=== PATIENT | male | born 1940 | race Caucasian/White ===

== ENCOUNTER → 2017-07-10 | Outpatient (CLI) | payer MEDICARE, MEDICAID, SELFPAY | PROVIDERS: Visit Provider Internal Medicine | DX: I48.2 Chronic atrial fibrillation (principal); R73.01 Impaired fasting glucose; Z79.01 Long term (current) use of anticoagulants; Z51.81 Encounter for therapeutic drug level monitoring | CPT/HCPCS: 83036; 85610 ==

== ENCOUNTER → 2017-11-24 11:44 | Outpatient (CLI) | payer MEDICARE, MEDICAID, SELFPAY ==
--- NOTE | 2017-11-24 12:03 | XR_ITS ---
XR chest 2V HISTORY: ITS.REASON: AMIODARONE SURVEILLANCE ORDERING PHYSICIAN: LILLI Bermudez PATIENT AGE: 77 years COMPARISON: 05/05/2017 FINDINGS: Tripolar pacer is present as before. Normal heart size. 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 No fibrotic changes apparent that would indicate amiodarone toxicity. Mild degenerative change thoracic spine. IMPRESSION: No change tripolar pacer with COPD. No evidence of amiodarone lung toxicity.
[2017-11-24 14:09] LABS: Alanine Aminotransferase 46 U/L (12-78); Albumin Level 4.3 gm/dL (3.4-5.0); Albumin/Globulin Ratio 1.4 (1.1-1.8); Alkaline Phosphatase 94 U/L (46-116); Anion Gap 14.6 mEq/L (5-15); Aspartate Amino Transferase 43 U/L (15-37); Bilirubin,Total 0.8 mg/dL (0.2-1.0); Blood Urea Nitrogen 17 mg/dL (7-18); Calcium 9.6 mg/dL (8.5-10.1); Carbon Dioxide 27 mmol/L (21.0-32.0); Chloride 104 mmol/L (98-107); Creatinine,Serum 0.89 mg/dL (0.70-1.30); Estimated Glomerular Filt Rate 83 ml/min (>60); GFR (African American) 100 ML/MIN (>60); Globulin 3.1 gm/dl (1.3-3.2); Glucose 112 mg/dL (74-106); Potassium 4.6 mmoL/L (3.5-5.1); Sodium 141 mmol/L (136-145); Thyroid Stimulating Hormone 1.09 uIU/ml (0.358-3.740); Total Protein,Serum 7.4 gm/dL (6.4-8.2)
== END ==
PROVIDERS: Visit Provider Physician Assistant
DX: Z79.899 Other long term (current) drug therapy (principal); I42.8 Other cardiomyopathies
CPT/HCPCS: 36415; 71046; 80053; 84443

== ENCOUNTER → 2018-02-23 14:58 | Outpatient (REF) | payer MEDICARE, MEDICAID, SELFPAY ==
[2018-02-23 15:15] LABS: INR 2.89 (0.9-1.1); Prothrombin Time 28.9 seconds (9.4-11.8)
== END ==
LOC: LAB 14:58
PROVIDERS: Visit Provider Internal Medicine
DX: Z79.01 Long term (current) use of anticoagulants (principal); Z51.81 Encounter for therapeutic drug level monitoring; I48.2 Chronic atrial fibrillation
CPT/HCPCS: 85610

== ENCOUNTER → 2018-12-22 13:52 | Outpatient (CLI) | payer MEDICARE, MEDICAID, SELFPAY ==
--- NOTE | 2018-12-22 13:57 | XR_ITS ---
XR chest 2V HISTORY: Cardiac dysrhythmia ITS.REASON: inappropriate aicd shock ORDERING PHYSICIAN: Sharona Vasquez APRN PATIENT AGE: 78 years COMPARISON: 11/24/2017 FINDINGS: Unremarkable heart size. Biventricular pacemaker is present with the right atrial lead from left subclavian approach.. The lungs are clear without infiltrates, suspicious nodules, or pleural effusions. Scattered calcified granulomas are present. Degenerative change thoracic spine. IMPRESSION: No change with no acute finding. Biventricular pacemaker remains in place.
== END ==
PROVIDERS: PCP Internal Medicine; Visit Provider Urology
DX: E78.5 Hyperlipidemia, unspecified (principal); I10 Essential (primary) hypertension; I25.10 Atherosclerotic heart disease of native coronary artery without angina pectoris; R06.00 Dyspnea, unspecified; Z45.02 Encounter for adjustment and management of automatic implantable cardiac defibrillator; Z95.810 Presence of automatic (implantable) cardiac defibrillator
CPT/HCPCS: 71046

== ENCOUNTER → 2018-12-23 09:25 | Outpatient (CLI) | payer MEDICARE, MEDICAID, SELFPAY ==
--- NOTE | 2018-12-23 09:29 | CA_ITS ---
PROCEDURE: 2-D M-mode and color Doppler study INDICATIONS FOR THE TEST: Chest pain COPD+ Heart Murmur Tobacco Smoking Palpitations Fatigue+ Syncope Edema Hypertension+Diabetes Mellitus Rheumatic Fever SOB+TALLEY Obesity Hyperlipidemia+ Family History HD Additional History AICD,DEFIBRILLATOR DISCHARGE, AFIB, CVA PATIENT INFORMATION HEIGHT: 70 WEIGHT:191 GENDER: Male B/P:157/89 2-D/M-MODE INTERPRETATION: 2-D MEASUREMENTS OBSERVED VALUES IN CMS Right Ventricular Dimension (RVDd) 2.7 Interventricular Septum (Thickness)(IVsd) 1.4 Left Ventricular Internal Dimensions(LVIDd) 7.0 Left Ventricular Posterior Wall (Thickness)(LVPWd) 1.0 Aortic Root 3.8 Aortic Cusp Separation 2.0 Left Atrial Dimensions (LAD) 3.9 2D 1. Left atrium is mildly enlarged, left ventricle is mildly dilated, there is mild concentric left ventricular hypertrophy, visually estimated ejection fraction of 20-25%, left ventricle is globally hypokinetic, there is abnormal septal motion. 2. The right atrium and right ventricle are normal size and contractility. There is a catheter noted that ventricle which is likely a pacemaker on an AICD lead. 3. The aortic valve is minimally thickened and calcified, leaflet continue to display mobility. 4. The mitral and tricuspid valve leaflets are minimally thickened. 5. The pulmonic valve is poorly visualized. 6. No significant pericardial effusion noted. DOPPLER INTERROGATION: Doppler interrogation of the aortic, mitral and tricuspid valvular presence of mild mitral and mild aortic and tricuspid regurgitation, calculated right ventricular systolic pressure is 47 mmHg consistent with moderate pulmonary hypertension. Inferior vena cava is not well visualized. Diastolic parameters are inconclusive CONCLUSION: 1. Mildly enlarged left atrium, dilated left ventricle, severely reduced left ventricular systolic function, visually estimated ejection fraction 20-25%, left ventricle is globally hypokinetic, there is abnormal septal motion. Diastolic parameters are inconclusive. 2. Mild aortic, mild mitral and tricuspid regurgitation, calculated right ventricular systolic pressure is 47 mmHg consistent with moderate pulmonary hypertension. 3. No significant pericardial effusion noted.
== END ==
PROVIDERS: PCP Internal Medicine; Visit Provider Internal Medicine
DX: E78.5 Hyperlipidemia, unspecified (principal); I10 Essential (primary) hypertension; I25.10 Atherosclerotic heart disease of native coronary artery without angina pectoris; R06.00 Dyspnea, unspecified; Z45.02 Encounter for adjustment and management of automatic implantable cardiac defibrillator; Z95.810 Presence of automatic (implantable) cardiac defibrillator
CPT/HCPCS: 93306

== ENCOUNTER 2018-12-24 09:15 | Observation (INO) ==
--- NOTE | 2018-12-24 09:28 | Emergency Department Note ---
ED Disposition Clinical Impression: Rapid atrial fibrillation, AICD discharge Hypotension Qualifiers: Hypotension type: unspecified hypotension type Qualified Code(s): I95.9 - Hypotension, unspecified Disposition: Admitted As Inpatient Condition on Discharge: Serious Referrals: Provider,Referral, [Referring] - - Critical Care Critical Care Time: Yes Attestation: On 12/24/18, the high probability of a clinically significant, sudden or life threatening deterioration of the following system(s) required my full and direct attention, intervention and personal management. The time I documented below is in addition to time spent performing reported procedures but includes the following listed in this critical care notation. Total Critical Care Time: 30 Vital system(s) involved:: Circulatory Failure My critical care processes included: Assessment & monitoring of V/S, Initial and Re-exams, Data Review/Interpretation, Coordinating Care, Medication Orders and management, Documentation Medical Decision Making - Richar Inquiry Pt receiving controlled substance: No Vital Signs: 12/24/18 09:16 12/24/18 09:50 12/24/18 09:58 Temperature 97.8 F Temperature Source Temporal Artery Scan Pulse Rate [Right Brachial] 129 H 141 H 129 H Respiratory Rate 28 H 22 Blood Pressure [Right Arm] 94/69 L 114/58 L 109/60 L Blood Pressure Mean [Right Arm] 77 76 76 Blood Pressure Source [Right Arm] Automatic Cuff Automatic Cuff Blood Pressure Position [Right Arm] Sitting Supine 02 Sat by Pulse Oximetry 94 L 99 Oxygen Delivery Method Room Air Nasal Cannula Oxygen Flow Rate (LPM) 3 - Lab Data Lab Results 12/24/18 09:28: WBC 11.4 H, RBC 5.19, Hgb 16.2, Hct 48.7, MCV 93.9, MCH 31.1, MCHC 33.2, RDW 12.9, Plt Count 280, MPV 7.7, Neut % (Auto) 58.1, Lymph % (Auto) 34.3, [place] % (Auto) 6.1, Eos % (Auto) 0.9, Baso % (Auto) 0.7, Neut # (Auto) 6.6, Lymph # (Auto) 3.9, [place] # (Auto) 0.7, Eos # (Auto) 0.1, Baso # (Auto) 0.1 12/24/18 09:28: Sodium 135 L, Potassium 3.2 L, Chloride 96 L, Carbon Dioxide 26, Anion Gap 16.2 H, BUN 18, Creatinine 1.75 H, Estimated Creat Clear 42, Estimated GFR 38 L, Est GFR ( Amer) 46 L, Glucose 159 H, Calcium 9.5, Troponin I < 0.02 12/24/18 09:28: PT 19.1 H, INR 1.89 H Result diagrams: 12/24/18 09:28 12/24/18 09:28 Orders (Tests/Meds): ED MEDICATIONS Generic Name Dose Route Start Last Admin Trade Name Freq PRN Reason Stop Dose Admin Diphenhydramine HCl 50 mg 12/24/18 10:00 Benadryl 50mg/1ml Vial IV 12/24/18 10:01 ONCE ONE Fentanyl Citrate 50 mcg 12/24/18 10:00 Fentanyl 100mcg/2ml Vial IV 12/25/18 10:00 Q3MINP PRN Moderate to Severe Pain Fentanyl Citrate 25 mcg 12/24/18 10:00 Fentanyl 250mcg/5ml Vial IV 12/25/18 10:00 Q3MINP PRN Moderate to Severe Pain Fentanyl Citrate 50 mcg 12/24/18 10:00 Fentanyl 250mcg/5ml Vial IV 12/25/18 10:00 Q3MINP PRN Moderate to Severe Pain Fentanyl Citrate 25 mcg 12/24/18 10:00 Fentanyl 100mcg/2ml Vial IV 12/25/18 10:00 Q3MINP PRN Moderate to Severe Pain Flumazenil 0.2 mg 12/24/18 10:00 Romazicon 0.1mg/Ml 5ml Vial IV 12/24/18 23:00 NEEDED PRN Sedation Heparin Sodium (Porcine) 10,000 unit 12/24/18 10:00 Heparin 1,000 Units/Ml 10ml Vial (Tax Services Manager) IV 12/24/18 14:00 NEEDED PRN Emergency Box Thinner Sprayer Heparin Sodium/Sodium Chloride 3,000 unit 12/24/18 10:00 Heparin 1000 Units/500ml Ns (Tax Services Manager) IV 12/24/18 10:01 ONCE ONE Sodium Chloride 500 mls @ 999 mls/hr 12/24/18 09:45 12/24/18 09:40 Sod Chlor 0.9% 1000ml Bag IV 12/24/18 10:15 999 mls/hr .Q31M JED Administration Sodium Chloride 1,000 mls @ 25 mls/hr 12/24/18 10:00 Sod Chlor 0.9% 1000ml Bag IV 12/25/18 10:00 .Q25H JED Lidocaine HCl 20 ml 12/24/18 10:00 Lidocaine 1% 20ml Mdv IJ 12/24/18 10:01 ONCE ONE Midazolam HCl 1 mg 12/24/18 10:00 Midazolam 2mg/2ml Vial IV 12/25/18 10:00 Q3MINP PRN Sedation Midazolam HCl 1 mg 12/24/18 10:00 Midazolam 1mg/Ml 5ml Vial IV 12/25/18 10:00 Q3MINP PRN Sedation Naloxone HCl 0.4 mg 12/24/18 10:00 Narcan 0.4mg/Ml Vial IV 12/25/18 10:00 Q5MINP PRN Decreased Respirations Nitroglycerin 800 mcg 12/24/18 10:00 Nitroglycerin 800mcg/8ml Syr (Tax Services Manager) IV 12/25/18 10:00 NEEDED PRN Emergency Box Thinner Sprayer Verapamil HCl 2.5 mg 12/24/18 10:00 Verapamil 2.5mg/Ml 2ml Vial IV 12/24/18 10:01 ONCE ONE Discontinued Medications Generic Name Dose Route Start Last Admin Trade Name Freq PRN Reason Stop Dose Admin Metoprolol Tartrate 5 mg 12/24/18 09:43 12/24/18 09:55 Metoprolol Tartrate 5mg/5ml Vial IV 12/24/18 09:44 5 mg ONCE ONE Administration Metoprolol Tartrate 5 mg 12/24/18 09:47 12/24/18 09:55 Metoprolol Tartrate 5mg/5ml Vial IV 12/24/18 09:48 5 mg ONCE ONE Administration ORDERS Category Date Time Status B-Type Natriuretic Peptide Stat Lab 12/24/18 09:28 Received Basic Metabolic Panel Stat Lab 12/24/18 10:00 Ordered Complete Blood Count Auto Diff Stat Lab 12/24/18 10:00 Ordered Prothrombin Time INR Stat Lab 12/24/18 10:00 Ordered - Radiology Data #1 Image(s): Chest Image Reviewed: Yes I have reviewed radiologist's interpretation IMPRESSION: Overlying artifact with pacemaker present. No acute finding. Dictated By: Steven Mahajan MD Signed By: <Electronically signed by Steven Mahajan MD in OV> 12/24/18 0949 - Physician Consults Physician Consulted: Amy Time: 09:20 Reason -: Cardiology Eval/Care Comment/Response: saw patient in ED Additional Consult: José Miguel Time: 10:04 Reason -: Admission Comment/Response: Agrees to admit the patient to the hospital. We discussed the patient's clinical information, including history, exam, laboratory and radiology results and ED course. Per hospital procedure, I will write temporary bridge inpatient orders on the patient. Specific orders requested by the admitting physician: Per cardiology Medical Decision Narrative: Dr. Reyes called immediately after I saw the patient. He came to the emergency room and saw the patient. He requested metoprolol 5 mg IV. He plans on taking the patient to cardiac cath and also capping his defibrillator lead. States the patient has chronic atrial fibrillation, would not be able to be cardioverted out of atrial fibrillation General Adult HPI - General Chief complaint: Shortness of Breath/Dyspnea Stated complaint: short of air Time Seen by Provider: 12/24/18 09:28 - History of Present Illness HPI narrative: Patient complains of general weakness and shortness of breath. Says that his implanted defibrillator went off this morning at 6:33 AM. He took his blood pressure and initially it was normal but it has continued to drift down. He was scheduled to have AICD lead extraction done today as it has been discovered to be over sensing and inappropriately administering defibrillation shocks. Denies chest pain. Stopped Coumadin yesterday in preparation for the procedure. Patient had previously been seeing Dr. King and Patric Overton, but could no longer see them, so transferred his care to Dr. Reyes, he is a new patient of his as of the past couple of days. - Related Data Home Medications Medication Instructions Recorded Confirmed allopurinol 300 mg tablet 300 mg PO DAILY #90 tab 12/22/18 12/24/18 bisoprolol fumarate 10 mg tablet 10 mg PO DAILY #90 tab 12/22/18 12/24/18 levothyroxine 100 mcg tablet 100 mcg PO DAILY #90 tab 12/22/18 12/24/18 pravastatin 40 mg tablet 40 mg PO QHS #90 tab 12/22/18 12/24/18 vitamins A,C,C-lvzi-rrvlgv 14,320 1 cap PO BID 12/22/18 12/24/18 unit-226 mg-200 unit capsule warfarin 5 mg tablet 2.5 mg PO DAILY #30 tab 12/22/18 12/24/18 Furosemide [Furosemide 40MG tAB] 40 mg PO BID 12/24/18 12/24/18 Sacubitril/Valsartan [Entresto] 1 tab PO BID 12/24/18 12/24/18 Allergies Allergy/AdvReac Type Severity Reaction Status Date / Time No Known Allergies Allergy Verified 12/23/18 10:44 [facility] History - Hepatitis A Screen Attestation statement:: This patient has been screened for Hepatitis A risk factors. I have reviewed the patient's past medical history: Yes Medical History: Reports:: Atrial Fibrillation, Chronic Obstructive Pulmonary Disease (COPD), Cerebrovascular Accident, Hyperlipidemia, Hypertension Other Medical History: Reports: Hypothyroidism, Thyroid Disease Other Surgeries: Yes: No Previous Surgery - Social History Smoking Status: Former smoker #Yrs smoked (if former smoker): 45 Alcohol Intake: current Alcohol Intake Frequency:: holidays/special occasions only Substance Use Type: denies use Occupational Status: retired Family Hx:: Stroke Comment: Mother-CVA ROS Obtained: Yes All systems reviewed & no additional complaints - Constitutional Constitutional: Denies fever(s) - Cardiovascular Cardiovascular: Denies chest pain - Respiratory Respiratory: Yes dyspnea - Gastrointestinal Gastrointestingal: Denies: abdominal pain Physical Exam - General General appearance: alert - Head Head exam: atraumatic, normocephalic - Eye Eye exam: Present: normal appearance, PERRL, EOMI - ENT ENT exam: Present: mucous membranes moist - Neck Neck exam: Present: normal inspection, trachea midline - Chest Chest inspection: Present: normal inspection, symmetric chest wall rise - Respiratory Respiratory exam: Present: normal lung sounds bilaterally. Absent: respiratory distress - Cardiovascular Cardiovascular exam: Present: tachycardia, irregular rhythm - Abdominal Exam Abdominal exam: Present: soft. Absent: distention, tenderness - Neurological Exam Neurological exam: Present: alert, oriented X3 - Psychiatric Psychiatric exam: Present: normal affect, normal mood - Skin Skin exam: Present: pallor
[2018-12-24 09:44] LABS: Basophils # 0.1 K/mm3 (0-0.2); Basophils % 0.7 % (0.1-2.0); Eosinophils # 0.1 K/mm3 (0.0-0.4); Eosinophils % 0.9 % (0.1-12.0); Hematocrit 48.7 % (42.0-52.0); Hemoglobin 16.2 g/dL (14.1-18.0); Lymphocytes # 3.9 K/mm3 (0.7-4.5); Lymphocytes % 34.3 % (10-50); Mean Corpuscular HGB Conc 33.2 g/dL (31.8-35.4); Mean Corpuscular Volume 93.9 fl (80-94); Mean Platelet Volume 7.7 fl (7.4-10.4); Monocytes # 0.7 K/mm3 (0.1-1.0); Monocytes % 6.1 % (1.7-9.3); Neutrophils # 6.6 K/mm3 (1.8-7.8); Neutrophils % 58.1 % (37.0-80.0); Platelet Count 280 K/mm3 (142-424); Red Blood Count 5.19 M/mm3 (4.60-6.20); Red Cell Distribution Width 12.9 % (11.5-17.5); White Blood Count 11.4 K/mm3 (4.8-10.8)
[2018-12-24 09:49] LABS: INR 1.89 (0.9-1.1); Prothrombin Time 19.1 seconds (9.4-11.8)
[2018-12-24 09:56] LABS: Anion Gap 16.2 mEq/L (5-15); Blood Urea Nitrogen 18 mg/dL (7-18); Calcium 9.5 mg/dL (8.5-10.1); Carbon Dioxide 26 mmol/L (21.0-32.0); Chloride 96 mmol/L (98-107); Glucose 159 mg/dL (74-106); Sodium 135 mmol/L (136-145)
--- NOTE | 2018-12-24 10:07 | Consult Report ---
History of Present Illness Consult date: 12/24/18 Consult reason: shortness of breath Chief complaint: AICD firing, SOA Additional Medical History:: 1. CAD A. Non-ischemic cardiomyopathy ([facility], 2008) with EF of 20-30% in past by echo and YVONNE (10/2016) B. BiV ICD, 10/2016, [employer] model # G148, serial # [id number] 2. PAF with RVR despite amiodarone therapy with recent increase in tachy events for which patient has been shocked due to oversensing of RV lead A. Anticoagulation with Coumadin therapy B. History of CVA 2008 3. Hypertension A. Echo, 12/23/2018, 1. Left atrium is mildly enlarged, left ventricle is mildly dilated, there is mild concentric left ventricular hypertrophy, visually estimated ejection fraction of 20-25%, left ventricle is globally hypokinetic, there is abnormal septal motion. 2. The right atrium and right ventricle are normal size and contractility. There is a catheter noted that ventricle which is likely a pacemaker on an AICD lead. 3. The aortic valve is minimally thickened and calcified, leaflet continue to display mobility. 4. The mitral and tricuspid valve leaflets are minimally thickened. 5. The pulmonic valve is poorly visualized. 6. No significant pericardial effusion noted. DOPPLER INTERROGATION: Doppler interrogation of the aortic, mitral and tricuspid valvular presence of mild mitral and mild aortic and tricuspid regurgitation, calculated right ventricular systolic pressure is 47 mmHg consistent with moderate pulmonary hypertension. Inferior vena cava is not well visualized. Diastolic parameters are inconclusive CONCLUSION: 1. Mildly enlarged left atrium, dilated left ventricle, severely reduced left ventricular systolic function, visually estimated ejection fraction 20-25%, left ventricle is globally hypokinetic, there is abnormal septal motion. Diastolic parameters are inconclusive. 2. Mild aortic, mild mitral and tricuspid regurgitation, calculated right ventricular systolic pressure is 47 mmHg consistent with moderate pulmonary hypertension. 3. No significant pericardial effusion noted 4. COPD 5. Hyperlipidemia 6. 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 Says that his implanted defibrillator went off this morning at 6:33 AM. He took his blood pressure and initially it was normal but it has continued to drift down. He was scheduled to have AICD lead extraction done today as it has been discovered to be over sensing and inappropriately administering defibrillation shocks. Denies chest pain. Stopped Coumadin yesterday in preparation for the procedure. Patient had previously been seeing Dr. King and Patric Overton, but could no longer see them, so transferred his care to Dr. Reyes, he is a new patient of his as of the past couple of days. The above per Dr. Fuentes Pt was seen yesterday with medication changes including stopping entresto and starting lasix for CHF secondary to cardiomyopathy. Plans to undergo RV lead extraction/replacement noted for today. Pt with history of moderate CAD in the past. With recent recurrent AICD firing and known CAD and now A. fib with RVR, pt should undergo LHC as well. [facility] History Medical History: Reports:: Atrial Fibrillation, Chronic Obstructive Pulmonary Disease (COPD), Cerebrovascular Accident, Hyperlipidemia, Hypertension *Have you ever received a pneumonia vaccine?: No *Have you received a flu vaccine this season?: No Other Medical History: Reports: Hypothyroidism, Thyroid Disease Other Surgeries: Yes: No Previous Surgery - *Social History Smoking Status: Former smoker #Yrs smoked (if former smoker): 45 Alcohol Intake: current Alcohol Intake Frequency:: holidays/special occasions only Substance Use Type: denies use *Occupational Status:: retired *Travel in the last 8 weeks: Inside the [place] Family Hx:: Stroke Meds Home Medications Medication Instructions Recorded Confirmed Type allopurinol 300 mg tablet 300 mg PO DAILY #90 tab 12/22/18 12/24/18 History bisoprolol fumarate 10 mg tablet 10 mg PO DAILY #90 tab 12/22/18 12/24/18 History levothyroxine 100 mcg tablet 100 mcg PO DAILY #90 tab 12/22/18 12/24/18 History pravastatin 40 mg tablet 40 mg PO QHS #90 tab 12/22/18 12/24/18 History vitamins A,C,H-ktnu-wvngyp 14,320 1 cap PO BID 12/22/18 12/24/18 History unit-226 mg-200 unit capsule warfarin 5 mg tablet 2.5 mg PO DAILY #30 tab 12/22/18 12/24/18 History Furosemide [Furosemide 40MG tAB] 40 mg PO BID 12/24/18 12/24/18 History Sacubitril/Valsartan [Entresto] 1 tab PO BID 12/24/18 12/24/18 History Allergies Allergy/AdvReac Type Severity Reaction Status Date / Time No Known Allergies Allergy Verified 12/23/18 10:44 Review of Systems - *Cardiovascular Reports chest pain, Reports shortness of breath - *Respiratory Reports shortness of breath - *Gastrointestinal Denies abdominal pain, Denies nausea, Denies vomiting - *Genitourinary Denies blood in urine - *Musculoskeletal Denies joint pain, Denies back pain - *Neurologic Reports weakness Exam Vital signs and Labs for Last 24 Hours: Temp Pulse Resp BP Pulse Ox 97.8 F 129 H 22 109/60 L 99 12/24/18 09:16 12/24/18 09:58 12/24/18 09:58 12/24/18 09:58 12/24/18 09:50 Laboratory Results - last 24 hr 12/24/18 09:28: WBC 11.4 H, RBC 5.19, Hgb 16.2, Hct 48.7, MCV 93.9, MCH 31.1, MCHC 33.2, RDW 12.9, Plt Count 280, MPV 7.7, Neut % (Auto) 58.1, Lymph % (Auto) 34.3, [place] % (Auto) 6.1, Eos % (Auto) 0.9, Baso % (Auto) 0.7, Neut # (Auto) 6.6, Lymph # (Auto) 3.9, [place] # (Auto) 0.7, Eos # (Auto) 0.1, Baso # (Auto) 0.1 12/24/18 09:28: Sodium 135 L, Potassium 3.2 L, Chloride 96 L, Carbon Dioxide 26, Anion Gap 16.2 H, BUN 18, Creatinine 1.75 H, Estimated Creat Clear 42, Estimated GFR 38 L, Est GFR ( Amer) 46 L, Glucose 159 H, Calcium 9.5, Troponin I < 0.02 12/24/18 09:28: PT 19.1 H, INR 1.89 H I & O for Last 24 hours: Intake & Output 12/21/18 12/22/18 12/23/18 12/24/18 11:59 11:59 11:59 11:59 Weight 191 lb - *Routine HEENT Exam Head: Present: normocephalic Eye: Present: EOMI, PERRL ENT: Present: mucous membranes moist - *Routine Neck Exam Present: supple. Absent: JVD, carotid bruit - *Routine Respiratory Exam Present: CTA bilaterally. Absent: accessory muscle use, rales, rhonchi, wheezes - *Routine Cardiovascular Exam Present: RRR. Absent: murmur, gallop, rubs - *Routine Extremities Exam Absent: edema, calf tenderness Assessment and Plan (1) Defibrillator discharge Current visit: Yes Status: Acute Category: Medical Code(s): Z45.02 - Encounter for adjustment and management of automatic implantable cardiac defibrillator (2) Hypotension Current visit: Yes Status: Acute Qualifiers: Qualified Code(s): I95.9 - Hypotension, unspecified Category: Medical Code(s): I95.9 - Hypotension, unspecified (3) Rapid atrial fibrillation Current visit: Yes Status: Acute Category: Medical Code(s): I48.91 - Unspecified atrial fibrillation (4) Automatic implantable cardioverter-defibrillator in situ Current visit: No Status: Chronic Category: Medical Code(s): Z95.810 - Presence of automatic (implantable) cardiac defibrillator (5) Chronic systolic heart failure Current visit: No Status: Chronic Category: Medical Code(s): I50.22 - Chronic systolic (congestive) heart failure (6) HLD (hyperlipidemia) Current visit: No Status: Chronic Qualifiers: Qualified Code(s): E78.49 - Other hyperlipidemia; E78.4 - Other hyperlipidemia Category: Medical Code(s): E78.5 - Hyperlipidemia, unspecified (7) HTN (hypertension) Current visit: No Status: Chronic Qualifiers: Qualified Code(s): I10 - Essential (primary) hypertension Category: Medical Code(s): I10 - Essential (primary) hypertension - Assessment and plan all Dx Assessment and Plan for all problems:: 1. C this AM 2. RV lead extraction and replacement due to RV oversensing and ICD firings. 3. Further recommendations to follow.
[2018-12-24 12:38] LABS: Free T4 (Free Thyroxine) 1.23 ng/dl (0.76-1.46); Thyroid Stimulating Hormone 2.35 uIU/ml (0.358-3.740)
--- NOTE | 2018-12-25 06:48 | H&P/Discharge Summary ---
General - General Admission date:: 12/24/18 Discharge date: 12/25/18 *Admission Date: 12/24/18 *Chief complaint: Fatigue/malaise/chest pain *History of present illness: 1. CAD A. Non-ischemic cardiomyopathy ([facility], 2008) with EF of 20-30% in past by echo and YVONNE (10/2016) B. BiV ICD, 10/2016, [employer] model # G148, serial # [id number] 2. PAF with RVR despite amiodarone therapy with recent increase in tachy events for which patient has been shocked due to oversensing of RV lead A. Anticoagulation with Coumadin therapy B. History of CVA 2008 3. Hypertension A. Echo, 12/23/2018, 1. Left atrium is mildly enlarged, left ventricle is mildly dilated, there is mild concentric left ventricular hypertrophy, visually estimated ejection fraction of 20-25%, left ventricle is globally hypokinetic, there is abnormal septal motion. 2. The right atrium and right ventricle are normal size and contractility. There is a catheter noted that ventricle which is likely a pacemaker on an AICD lead. 3. The aortic valve is minimally thickened and calcified, leaflet continue to display mobility. 4. The mitral and tricuspid valve leaflets are minimally thickened. 5. The pulmonic valve is poorly visualized. 6. No significant pericardial effusion noted. DOPPLER INTERROGATION: Doppler interrogation of the aortic, mitral and tricuspid valvular presence of mild mitral and mild aortic and tricuspid regurgitation, calculated right ventricular systolic pressure is 47 mmHg consistent with moderate pulmonary hypertension. Inferior vena cava is not well visualized. Diastolic parameters are inconclusive CONCLUSION: 1. Mildly enlarged left atrium, dilated left ventricle, severely reduced left ventricular systolic function, visually estimated ejection fraction 20-25%, left ventricle is globally hypokinetic, there is abnormal septal motion. Diastolic parameters are inconclusive. 2. Mild aortic, mild mitral and tricuspid regurgitation, calculated right ventricular systolic pressure is 47 mmHg consistent with moderate pulmonary hypertension. 3. No significant pericardial effusion noted 4. COPD 5. Hyperlipidemia 6. 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 Says that his implanted defibrillator went off this morning at 6:33 AM. He took his blood pressure and initially it was normal but it has continued to drift down. He was scheduled to have AICD lead extraction done today as it has been discovered to be over sensing and inappropriately administering defibrillation shocks. Denies chest pain. Stopped Coumadin yesterday in preparation for the procedure. Patient had previously been seeing Dr. King and Patric Overton, but could no longer see them, so transferred his care to Dr. Reyes, he is a new patient of his as of the past couple of days. The above per Dr. Fuentes Pt was seen yesterday with medication changes including stopping entresto and starting lasix for CHF secondary to cardiomyopathy. Plans to undergo RV lead extraction/replacement noted for today. Pt with history of moderate CAD in the past. With recent recurrent AICD firing and known CAD and now A. fib with RVR, pt should undergo LHC as well. [facility] History I have reviewed the patient's past medical history: Yes Medical History: Reports:: Atrial Fibrillation, Chronic Obstructive Pulmonary Disease (COPD), Cerebrovascular Accident, Hyperlipidemia, Hypertension, Internal Pacemaker Denies:: Diabetes Mellitus Type 1, Diabetes Mellitus Type 2, MRSA *Have you ever received a pneumonia vaccine?: Yes *Have you received a flu vaccine this season?: Yes Other Medical History: Reports: Hypothyroidism, Thyroid Disease Other Surgeries: Yes: No Previous Surgery, Cardiac Catheterization, Pacemaker - *Social History Educational Level: Completed High School Smoking Status: Former smoker Tobacco Type: cigarettes # Packs/Day (cigarettes): 1 #Yrs smoked (if former smoker): 40 Alcohol Intake: former Alcohol Intake Frequency:: holidays/special occasions only Substance Use Type: denies use *Occupational Status:: retired Housing: house Household Members: none *Travel in the last 8 weeks: None - Psychiatric History Expresses thoughts of harming self/others: None Suicide Plan Description: No Plan Family Hx:: Stroke Review of Systems - Review of Systems Review of systems:: pertinent systems reviewed and negative unless documented below - *Neurologic Reports weakness Exam Vital signs and Labs for Last 24 Hours: Temp Pulse Resp BP Pulse Ox 98.2 F 80 19 134/71 97 12/25/18 03:33 12/25/18 04:00 12/25/18 03:33 12/25/18 03:33 12/25/18 03:33 Laboratory Results - last 24 hr 12/24/18 09:00: TSH 2.35 D, Free T4 1.23 12/24/18 09:28: WBC 11.4 H, RBC 5.19, Hgb 16.2, Hct 48.7, MCV 93.9, MCH 31.1, MCHC 33.2, RDW 12.9, Plt Count 280, MPV 7.7, Neut % (Auto) 58.1, Lymph % (Auto) 34.3, Kingfisher % (Auto) 6.1, Eos % (Auto) 0.9, Baso % (Auto) 0.7, Neut # (Auto) 6.6, Lymph # (Auto) 3.9, Kingfisher # (Auto) 0.7, Eos # (Auto) 0.1, Baso # (Auto) 0.1 12/24/18 09:28: Sodium 135 L, Potassium 3.2 L, Chloride 96 L, Carbon Dioxide 26, Anion Gap 16.2 H, BUN 18, Creatinine 1.75 H, Estimated Creat Clear 42, Estimated GFR 38 L, Est GFR ( Amer) 46 L, Glucose 159 H, Calcium 9.5, Troponin I < 0.02 12/24/18 09:28: PT 19.1 H, INR 1.89 H 12/24/18 09:28: B-Natriuretic Peptide 327 H I & O for Last 24 hours: Intake & Output 12/22/18 12/23/18 12/24/18 12/25/18 11:59 11:59 11:59 11:59 Intake Total 1000 / 1000 240 / 240 Balance 1000 / 1000 240 / 240 Weight 191 lb 191 lb 7 oz Narrative: This morning patient awake, alert, heart rate regular, no complaints. No edema, Abdomen soft and nontender. Lungs clear. Neurologic exam intact. No rash noted. Catheterization sites look good with good perfusion Hospital Course Hospital Course: Patient was admitted, underwent cardiac cath: Results noted below. ANGIOGRAPHIC RESULTS: 1. The left main artery normal 2. The left anterior descending artery has normal 3. The circumflex artery is non dominant and has normal 4. The right coronary artery normal 5. The SMITH ventriculogram reveals left ventricular dilatation ejection fraction 20% 6. The left ventricular end-diastolic pressure less than 5 mmHg HEMODYNAMICS: Pulmonary artery occlusion pressure is 3 mmHg mm Hg. Pulmonary arterial pressure is 15/5 mm Hg. Right atrial pressure is 2 mm Hg. SATURATIONS: PA is 73 %. RA is 73 %. IMPRESSION: 1. Normal coronary arteries 2. Left ventricular dysfunction 3. Low intracardio-pulmonary filling pressures PLAN: 1. Patient needs IV fluids because of the low intravascular fluid status 2. Rate control with beta blockers and digoxin 3. Proceed with pacemaker/defibrillator modification later this afternoon 4. Continue with anticoagulation for chronic atrial fibrillation Patient did well post cath. Continued on current medications. Defibrillator modification was undertaken without problems. Patient will be discharged home on regular medications. Follow-up with cardiology. Results Labs on day of discharge: Labs from last 24 hours 12/24/18 12/24/18 12/24/18 09:28 09:28 09:28 WBC RBC Hgb Hct MCV MCH MCHC RDW Plt Count MPV Neut % (Auto) Lymph % (Auto) Kingfisher % (Auto) Eos % (Auto) Baso % (Auto) Neut # (Auto) Lymph # (Auto) Kingfisher # (Auto) Eos # (Auto) Baso # (Auto) PT 19.1 H INR 1.89 H Sodium 135 L Potassium 3.2 L Chloride 96 L Carbon Dioxide 26 Anion Gap 16.2 H BUN 18 Creatinine 1.75 H Estimated Creat Clear 42 Estimated GFR 38 L Est GFR ( Amer) 46 L Glucose 159 H Calcium 9.5 Troponin I < 0.02 B-Natriuretic Peptide 327 H TSH Free T4 12/24/18 12/24/18 09:28 09:00 WBC 11.4 H RBC 5.19 Hgb 16.2 Hct 48.7 MCV 93.9 MCH 31.1 MCHC 33.2 RDW 12.9 Plt Count 280 MPV 7.7 Neut % (Auto) 58.1 Lymph % (Auto) 34.3 Kingfisher % (Auto) 6.1 Eos % (Auto) 0.9 Baso % (Auto) 0.7 Neut # (Auto) 6.6 Lymph # (Auto) 3.9 Kingfisher # (Auto) 0.7 Eos # (Auto) 0.1 Baso # (Auto) 0.1 PT INR Sodium Potassium Chloride Carbon Dioxide Anion Gap BUN Creatinine Estimated Creat Clear Estimated GFR Est GFR ( Amer) Glucose Calcium Troponin I B-Natriuretic Peptide TSH 2.35 D Free T4 1.23 DS: Diagnosis - Discharge Diagnosis (1) Defibrillator discharge Status: Resolved (2) Hypotension Status: Resolved (3) Rapid atrial fibrillation Status: Resolved (4) Automatic implantable cardioverter-defibrillator in situ Status: Chronic (5) Chronic systolic heart failure Status: Chronic (6) HLD (hyperlipidemia) Status: Chronic (7) HTN (hypertension) Status: Chronic Discharge Plan - Patient Discharge Instructions ACTIVITY: Continue current activity DIET: continue same diet Patient Instructions: Cardiac Catheterization, DI for Cardiac Catheterization, DI for Surgical Site Infection, Surgical Site Infection - Follow up Plan Follow up with: Provider,MD Leonid [Referring] - Dany Reyes MD [Staff Physician] - 12/28/18 Disposition: Home, Self-[facility] Medications: Home Medications Medication Instructions Recorded Confirmed Type allopurinol 300 mg tablet 300 mg PO DAILY #90 tab 12/22/18 12/24/18 History bisoprolol fumarate 10 mg tablet 10 mg PO DAILY #90 tab 12/22/18 12/24/18 History levothyroxine 100 mcg tablet 100 mcg PO DAILY #90 tab 12/22/18 12/24/18 History pravastatin 40 mg tablet 40 mg PO QHS #90 tab 12/22/18 12/24/18 History vitamins A,C,N-quaz-ibjsux 14,320 1 cap PO BID 12/22/18 12/24/18 History unit-226 mg-200 unit capsule warfarin 5 mg tablet 2.5 mg PO DAILY #30 tab 12/22/18 12/24/18 History Furosemide [Furosemide 40MG tAB] 40 mg PO BID 12/24/18 12/24/18 History Sacubitril/Valsartan [Entresto] 1 tab PO BID 12/24/18 12/24/18 History Digoxin [Digoxin 0.125mg Tablet] 125 mcg PO DAILY #30 tab 12/25/18 Rx Prescriptions/Medication Reconciliation: New Digoxin [Digoxin 0.125mg Tablet] 125 mcg PO DAILY #30 tab Continued allopurinol 300 mg tablet 300 mg PO DAILY #90 tab warfarin 5 mg tablet 2.5 mg PO DAILY #30 tab levothyroxine 100 mcg tablet 100 mcg PO DAILY #90 tab bisoprolol fumarate 10 mg tablet 10 mg PO DAILY #90 tab pravastatin 40 mg tablet 40 mg PO QHS #90 tab vitamins A,C,Q-epyi-izjbpf 14,320 unit-226 mg-200 unit capsule 1 cap PO BID Sacubitril/Valsartan [Entresto] 1 tab PO BID Furosemide [Furosemide 40MG tAB] 40 mg PO BID
--- NOTE | 2019-01-27 11:02 | Procedure Note ---
Pocket Revision Date:: 12/24/18 Procedures:: 1. Revision of existing pocket for generator 2. Capped Chronic Rright Ventricular Lead 3. Placement of a New Ventricular sensing, pacing and shocking coil in the right ventricular apex. Indications:: Over Sensing and Inappropriately administration Defibrillation Shock Informed consent:: Obtained prior to procedure. Complications:: None EBL:: Less than 10 ml. Technique:: 1% Lidocaine with epinephrine used to anesthetize the left anterior aspect of the chest.Scalpel was used to make the initial cutaneous incision and then used to dissect down to the pacemaker generator. The generator was removed from the existing pocket. Digital manipulation was required along with intermittent usage of scalpel in order to revise the pocket. The pacemaker leads were removed from the old generator and then placed and secured into the new pacemaker generator. Antibiotics were used to flush the pocket and the pacemaker was secured using 3-0 silk into the newly revised pocket. Monocryl was used to close the subcutaneous tissue and then layne were placed on the cutaneous area in order to approximate the incision. The area was sterilely prepped and antibiotics were applied. Patient was transferred to the postop holding area in stable condition Impression:: 1. Successful revision of existing pocket for generator 2. Successful capping of the Chronic Rright Ventricular Lead 3. Successful placement of a New Ventricular sensing, pacing and shocking coil in the right ventricular apex. Plan:: 1.Post-op wound care.
== END 2018-12-25 08:54 | disposition home or self-care (01) ==
LOC: ER 09:15 → CATHLAB 10:04 → 2ND 10:04 → CATHLAB 10:15
PROVIDERS: ADMIT Internal Medicine Adolescent Medicine; ATTEND Internal Medicine Adolescent Medicine
DX: T82.190A Other mechanical complication of cardiac electrode, initial encounter; J44.9 Chronic obstructive pulmonary disease, unspecified; I95.9 Hypotension, unspecified; E03.9 Hypothyroidism, unspecified; I50.22 Chronic systolic (congestive) heart failure; I11.0 Hypertensive heart disease with heart failure; Z87.891 Personal history of nicotine dependence; I50.84 End stage heart failure; I48.91 Unspecified atrial fibrillation; J45.990 Exercise induced bronchospasm; Z45.02 Encounter for adjustment and management of automatic implantable cardiac defibrillator; Z95.810 Presence of automatic (implantable) cardiac defibrillator; I25.10 Atherosclerotic heart disease of native coronary artery without angina pectoris; E78.5 Hyperlipidemia, unspecified; Z79.899 Other long term (current) drug therapy; Z79.01 Long term (current) use of anticoagulants
CPT/HCPCS: 33224; 33244; 71010; 71045; 80048; 82810; 83880; 84439; 84443; 84484; 85025; 85610; 96365; 96375; 99152; 99283; C1725; C1769; C1894; C1895; G0378; J1644; Q9967

== ENCOUNTER → 2019-07-08 14:26 | Outpatient (CLI) | payer MEDICARE, MEDICAID, SELFPAY ==
[2019-07-08 14:51] LABS: INR 2.85 (0.9-1.1); Prothrombin Time 28.2 seconds (9.4-11.8)
== END ==
PROVIDERS: Visit Provider Internal Medicine
DX: Z51.81 Encounter for therapeutic drug level monitoring (principal); Z79.01 Long term (current) use of anticoagulants; I48.20 Chronic atrial fibrillation, unspecified
CPT/HCPCS: 36415; 85610

== ENCOUNTER → 2019-08-12 16:10 | Outpatient (CLI) | payer MEDICARE, MEDICAID, SELFPAY ==
[2019-08-12 16:23] LABS: INR 2.87 (0.9-1.1); Prothrombin Time 28.4 seconds (9.4-11.8)
== END ==
PROVIDERS: Visit Provider Internal Medicine
DX: Z51.81 Encounter for therapeutic drug level monitoring (principal); Z79.01 Long term (current) use of anticoagulants; I48.91 Unspecified atrial fibrillation
CPT/HCPCS: 85610

== ENCOUNTER → 2019-12-26 10:34 | Outpatient (CLI) | payer MEDICARE, MEDICAID, SELFPAY | PROVIDERS: PCP Internal Medicine; Visit Provider Urology | DX: I48.91 Unspecified atrial fibrillation; I50.22 Chronic systolic (congestive) heart failure; E78.5 Hyperlipidemia, unspecified; Z95.810 Presence of automatic (implantable) cardiac defibrillator | CPT/HCPCS: 93306 ==

== ENCOUNTER → 2020-09-05 12:25 | Outpatient (CLI) | payer MEDICARE, MEDICAID, SELFPAY ==
[2020-09-05 12:52] LABS: Chloride 103 mmol/L (98-107); Sodium 139 mmol/L (136-145)
[2020-09-05 12:53] LABS: Potassium 4.8 mmoL/L (3.5-5.1)
[2020-09-05 12:56] LABS: Anion Gap 9.8 mEq/L (5-15); Blood Urea Nitrogen 20 mg/dl (9-20); Calcium 10.1 mg/dl (8.4-10.2); Carbon Dioxide 31 mmol/L (22.0-30.0); Estimated Glomerular Filt Rate 72 ml/min (>60); GFR (African American) 87 ML/MIN (>60); Glucose 119 mg/dl (74-100)
[2020-09-05 14:08] LABS: Prothrombin Time 26.9 seconds (9.4-11.8)
[2020-09-05 14:09] LABS: INR 2.65 (0.9-1.1)
== END ==
PROVIDERS: PCP Internal Medicine; Visit Provider Nurse Practitioner Family
DX: I50.22 Chronic systolic (congestive) heart failure; Z51.81 Encounter for therapeutic drug level monitoring; Z79.01 Long term (current) use of anticoagulants; I11.0 Hypertensive heart disease with heart failure
CPT/HCPCS: 36415; 80048; 85610

== ENCOUNTER → 2020-12-12 16:29 | Outpatient (CLI) | payer MEDICARE, MEDICAID, SELFPAY ==
[2020-12-12 20:46] LABS: INR 3.34 (0.9-1.1)
== END ==
PROVIDERS: Visit Provider Internal Medicine
DX: Z51.81 Encounter for therapeutic drug level monitoring (principal); Z79.01 Long term (current) use of anticoagulants; I48.91 Unspecified atrial fibrillation
CPT/HCPCS: 85610

== ENCOUNTER → 2020-12-28 14:45 | Outpatient (CLI) | payer MEDICARE, MEDICAID, SELFPAY ==
[2020-12-28 14:58] LABS: Prothrombin Time 23.3 seconds (10.1-12.5)
[2020-12-28 14:59] LABS: INR 2.09 (0.9-1.1)
== END ==
PROVIDERS: Visit Provider Internal Medicine
DX: R00.0 Tachycardia, unspecified (principal)
CPT/HCPCS: 85610

== ENCOUNTER 2020-12-28 15:01 | Inpatient (IN) | payer MEDICARE, MEDICAID, SELFPAY ==
[2020-12-28] VITALS (16 sets, daily range): BP systolic 74–116; BP diastolic 53–85; PULSE 60–162; RESP 16–28; TEMP 36.3–36.9; O2SAT 95–100; BMI 27.2; BMI 27.1
--- NOTE | 2020-12-28 14:55 | ECG_ITS ---
APPROVED REPORT Exam: Resting ECG HR:153 bpm ECG Measurements Heart Rate 153 AXES QRSd 152 QRS -76 QT 372 T 115 QTc 593 Conclusion Wide QRS tachycardia with frequent premature ventricular complexes and fusion complexes Left axis deviation Left bundle branch block Abnormal ECG Electronically signed by : Eamon Valdez, 12/29/2020 07:15:20
--- NOTE | 2020-12-28 15:18 | PC.NURSE ---
JOCELYNE DONIS speaking with Amy.
--- NOTE | 2020-12-28 15:21 | XR_ITS ---
PROCEDURE: XR CHEST PORTABLE CLINICAL HISTORY: tachy COMPARISON: CR CXR1 CHEST-PORTABLE from 10/13/2016 CR CXR CHEST(2 VIEWS-NOT PORTABLE) from 05/05/2017 CR CXR2V XR chest 2V from 11/24/2017 FINDINGS: Heart size is normal. There is mild bibasilar scar versus atelectasis. No definite focal infiltrate. No pleural effusion or pneumothorax. Stable left-sided AICD/pacemaker noted. No acute bony abnormality. IMPRESSION: Mild bibasilar scar versus atelectasis. No focal infiltrate or overt failure. Dictated by: José Miguel Escamilla MD 12/28/2020 15:43 José Miguel Escamilla MD in [place] 12/28/2020 15:43
[2020-12-28 15:31] LABS: Basophils # 0.1 K/mm3 (0-0.2); Basophils % 0.7 % (0.1-2.0); Eosinophils # 0.2 K/mm3 (0.0-0.4); Hematocrit 49.2 % (42.0-52.0); Hemoglobin 16.9 g/dL (14.1-18.0); Lymphocytes # 2.8 K/mm3 (0.7-4.5); Mean Corpuscular HGB Conc 34.4 g/dL (31.8-35.4); Mean Platelet Volume 8.5 fl (7.4-10.4); Monocytes # 0.6 K/mm3 (0.1-1.0); Monocytes % 5.8 % (1.7-9.3); Neutrophils # 5.8 K/mm3 (1.8-7.8); Neutrophils % 61.6 % (37.0-80.0); Platelet Count 215 K/mm3 (142-424); Red Blood Count 4.97 M/mm3 (4.60-6.20); Red Cell Distribution Width 13.1 % (11.5-17.5); White Blood Count 9.5 K/mm3 (4.8-10.8)
[2020-12-28 15:45] LABS: Magnesium 1.6 mg/dl (1.6-2.3); Phosphorous 2.7 mg/dl (2.5-4.5)
--- NOTE | 2020-12-28 15:45 | HMH.EDGENADL ---
ED Disposition Clinical Impression: Wide-complex tachycardia Hypotension Qualifiers: Hypotension type: unspecified hypotension type Qualified Code(s): I95.9 - Hypotension, unspecified Disposition: Admitted As Inpatient Condition on Discharge: Serious - Critical Care Critical Care Time: Yes Attestation: On 12/28/20, the high probability of a clinically significant, sudden or life threatening deterioration of the following system(s) required my full and direct attention, intervention and personal management. The time I documented below is in addition to time spent performing reported procedures but includes the following listed in this critical care notation. Total Critical Care Time: 45 Vital system(s) involved:: Circulatory Failure, Central Nervous System, Metabolic Failure, Respiratory Failure, Renal Failure My critical care processes included: Assessment & monitoring of V/S, Initial and Re-exams, Data Review/Interpretation, Coordinating Care, Medication Orders and management, Documentation Medical Decision Making - Medical Records Medical records reviewed: Yes: I reviewed the patient's medical records. - Richar Inquiry Pt receiving controlled substance: No Vital Signs: 12/28/20 15:08 12/28/20 15:24 12/28/20 15:30 Temperature 97.5 F L 97.9 F 98.4 F Temperature Source Oral Pulse Rate 71 71 136 H Pulse Rate [Right] Respiratory Rate 19 19 22 Blood Pressure 74/56 L 86/65 L 102/69 L Blood Pressure [Right Arm] Blood Pressure Mean [Right Arm] Blood Pressure Source Automatic Cuff Blood Pressure Position Sitting Sitting 02 Sat by Pulse Oximetry 97 99 97 Oxygen Delivery Method Room Air 12/28/20 15:53 12/28/20 16:07 Temperature 98.5 F 98.1 F Temperature Source Oral Pulse Rate 125 H Pulse Rate [Right] 162 H Respiratory Rate 18 19 Blood Pressure 102/59 L Blood Pressure [Right Arm] 101/61 L Blood Pressure Mean [Right Arm] 74 Blood Pressure Source Blood Pressure Position 02 Sat by Pulse Oximetry 95 98 Oxygen Delivery Method - Lab Data Lab Results 12/28/20 15:21: WBC 9.5, RBC 4.97, Hgb 16.9, Hct 49.2, MCV 99.0 H, MCH 34.0 H, MCHC 34.4, RDW 13.1, Plt Count 215, MPV 8.5, Neut % (Auto) 61.6, Lymph % (Auto) 30.0, Barry % (Auto) 5.8, Eos % (Auto) 2.0, Baso % (Auto) 0.7, Neut # (Auto) 5.8, Lymph # (Auto) 2.8, Barry # (Auto) 0.6, Eos # (Auto) 0.2, Baso # (Auto) 0.1 12/28/20 15:21: Sodium 138, Potassium 4.2, Chloride 104, Carbon Dioxide 25, Anion Gap 13.2, BUN 26 H, Creatinine 1.30 H, Estimated GFR 53 L, Est GFR ( Amer) 64, Glucose 136 H, Calcium 9.3, Total Bilirubin 0.8, Direct Bilirubin 0.5 H, Conjugated Bilirubin 0.0, Indirect Bilirubin 0.3, Unconjugated Bilirubin 0.4, AST 52, ALT 34, Alkaline Phosphatase 124, Troponin I < 0.01, NT-Pro-B Natriuret Pep 548 H, Total Protein 7.8, Albumin 4.9 12/28/20 15:21: Phosphorus 2.7, Magnesium 1.6 12/28/20 15:50: PT 23.3 H, INR 2.09 H Result diagrams: 12/28/20 15:21 12/28/20 15:21 Orders (Tests/Meds): ED MEDICATIONS Generic Name Dose Route Start Last Admin Trade Name Freq PRN Reason Stop Dose Admin Acetaminophen 650 mg 12/28/20 16:51 Acetaminophen 325mg Tab PO 01/27/21 16:50 Q4HP PRN Fever or Mild Pain Docusate Sodium 100 mg 12/29/20 09:00 Docusate Sodium 100 Mg Capsule PO 01/28/21 08:59 DAILY JED Amiodarone HCl 900 mg/ 518 mls @ 33.3 mls/hr 12/28/20 15:53 12/28/20 15:59 Dextrose IV 12/29/20 07:26 33.3 mls/hr .[id number] JED Administration Milrinone Lactate 20 mg/ 100 mls @ 9.696 mls/hr 12/28/20 17:00 Sodium Chloride IV 01/27/21 16:59 .[id number] JED Protocol 0.375 MCG/KG/MIN Ondansetron HCl 4 mg 12/28/20 16:51 Ondansetron 4mg/2ml Vial IV 07/18/21 16:50 Q8HP PRN Nausea Pantoprazole Sodium 40 mg 12/29/20 09:00 Pantoprazole 40mg Tablet PO 01/28/21 08:59 DAILY JED Discontinued Medications Generic Name Dose Route Start Last Admin Trade Name Freq
[2020-12-28 15:46] LABS: Alanine Aminotransferase 34 U/L (12-78); Albumin Level 4.9 g/dl (3.5-5.0); Alkaline Phosphatase 124 U/L (38-126); Anion Gap 13.2 mEq/L (5-15); Aspartate Amino Transferase 52 U/L (17-59); Bilirubin,Direct 0.5 mg/dl (0.0-0.4); Bilirubin,Indirect 0.3 mg/dL (0.0-0.9); Bilirubin,Total 0.8 mg/dl (0.2-1.3); Bilirubin,Unconjugated 0.4 mg/dL (0.0-1.1); Blood Urea Nitrogen 26 mg/dl (9-20); Calcium 9.3 mg/dl (8.4-10.2); Carbon Dioxide 25 mmol/L (22.0-30.0); Chloride 104 mmol/L (98-107); Estimated Glomerular Filt Rate 53 ml/min (>60); GFR (African American) 64 ML/MIN (>60); Glucose 136 mg/dl (74-100); Potassium 4.2 mmoL/L (3.5-5.1); Sodium 138 mmol/L (136-145); Total Protein,Serum 7.8 g/dl (6.3-8.2)
[2020-12-28 15:58] LABS: NT Pro Brain Natriuretic Pep. 548 pg/mL (0-450)
[2020-12-28 16:04] LABS: Troponin I < 0.01 ng/ml (0.00-0.034)
[2020-12-28 16:09] LABS: Prothrombin Time 23.3 seconds (10.1-12.5)
[2020-12-28 16:13] LABS: INR 2.09 (0.9-1.1)
--- NOTE | 2020-12-28 16:13 | PC.NURSE ---
blue top drawn for lab at this time
--- NOTE | 2020-12-28 16:22 | PC.NURSE ---
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 rizo who is on for service.
--- NOTE | 2020-12-28 16:34 | PC.NURSE ---
JOCELYNE DONIS spoke with Dr. Richards
[2020-12-28 16:56] LABS: Coronavirus 19, PCR Not Detected (NotDetected); Influenza A, PCR Not Detected (NotDetected); Influenza B, PCR Not Detected (NotDetected)
--- NOTE | 2020-12-28 18:41 | PC.NURSE ---
phone report given to fadia dunn at this time for patient admission
[2020-12-28 19:18] LABS: Troponin I < 0.01 ng/ml (0.00-0.034)
--- NOTE | 2020-12-28 20:16 | HMH.HP ---
*Admission Date: 12/28/20 *Chief complaint: Low blood pressure *History of present illness: This 80-year-old white male has known heart disease with cardiomyopathy and an ejection fraction of around 20 to 25%. He takes warfarin. He is followed by Dr. Reyes. His primary care physician is Dr. Johnnie Lincoln. He presented in Dr. Lincoln's office today for a routine recheck of his Coumadin. His blood pressure was found to be quite low and he was sent to the emergency room for further evaluation and treatment. In the emergency room he was found to have a wide-complex tachycardia and hypotension. The following is a narrative from Dr. Sedrick Shipman in the emergency room: Patient arrives with wide-complex tachycardia and low blood pressure. He is mentating well and has no acute complaints at this time. We have discussed cardioversion, but I was able to discuss his case with Dr. Reyes who thinks that the patient might do better with medication approach and has suggested amiodarone initially, followed by some metoprolol if needed and milrinone/Joni-Synephrine. Over his stay in the emergency department patient did receive some total of about 1 L of fluids to help support his pressure while we were starting medications and stabilizing the patient. Patient's heart rate improved to the 1 teens with amiodarone and metoprolol, blood pressure currently of 96/55. We will start amiodarone. I discussed this case with Dr. Richards and patient will be admitted for further management. No renal failure, no florid pulmonary edema on chest x-ray. Patient has no respiratory distress, continues to mentate well. Troponin is negative and INR is therapeutic. This is an 80-year-old male with a past medical history significant for hypertension, atrial fibrillation on Coumadin, systolic heart failure with an EF of 20 to 25% who presents to the emergency department for evaluation of hypotension noted this morning in association with substernal squeezing sensation in his chest this morning that has now resolved. He states he felt generally weak this morning, noted that he had low blood pressure. He states this typically happens about once a month often in association with chest pain, but he felt like his chest pain this morning was more severe. He is feeling better now however, but presents with a wide-complex tachycardia with a rate in the 150s to 170s. Blood pressure ranging from 70 systolic to 110 systolic. He is alert and oriented, and denies any symptomology at this time. He denies any recent fevers, vomiting, diarrhea, cough. No known exacerbating or alleviating factors. This the patient was stabilized in the emergency room and transported to the medical floor. [facility] History Medical History: Reports:: Arrhythmia, Atrial Fibrillation, Cardiomyopathy, Congestive Heart Failure (Systolic, EF 20 to 25%), Chronic Obstructive Pulmonary Disease (COPD), Cerebrovascular Accident (Related to atrial fibrillation.), Hyperlipidemia, Hypertension, Internal Pacemaker (Placed [address] Solares at [facility]. BIV/AICD) Denies:: Cancer, Diabetes Mellitus Type 1, Diabetes Mellitus Type 2, MRSA *Have you ever received a pneumonia vaccine?: Yes *Have you received a flu vaccine this season?: Yes Other Medical History: Reports: Hypothyroidism, Thyroid Disease Other Surgeries: Yes: No Previous Surgery, Cardiac Catheterization, Pacemaker - *Social History Last grade of school completed: 9th or 10th Smoking Status: Former smoker (Quit smoking 22 years ago) Tobacco Type: cigarettes # Packs/Day (cigarettes): 1 #Yrs smoked (if former smoker): 40 Smoking End Date: Alcohol Intake: current Alcohol Intake Frequency:: holidays/special occasions only Substance Use Type: denies use *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 He is currently not
[2020-12-28 22:48] LABS: Digoxin < 0.40 ng/ml (0.2-2.00)
[2020-12-29] VITALS (14 sets, daily range): BP systolic 105–149; BP diastolic 69–92; PULSE 60–70; RESP 15–23; TEMP 35.6–36.9; O2SAT 97–100; BMI 26.3
--- NOTE | 2020-12-29 03:03 | PC.NURSE ---
2200- AMIO GTT TITRATED TO 16.7 ML/HR
[2020-12-29 05:44] LABS: Basophils # 0.1 K/mm3 (0-0.2); Basophils % 0.9 % (0.1-2.0); Eosinophils # 0.2 K/mm3 (0.0-0.4); Monocytes # 0.5 K/mm3 (0.1-1.0); Neutrophils # 4.5 K/mm3 (1.8-7.8); Platelet Count 158 K/mm3 (142-424); White Blood Count 7.7 K/mm3 (4.8-10.8)
[2020-12-29 05:47] LABS: Eosinophils % 2.8 % (0.1-12.0); Lymphocytes # 2.3 K/mm3 (0.7-4.5); Lymphocytes % 30.4 % (10-50); Mean Corpuscular HGB Conc 34.7 g/dL (31.8-35.4); Mean Corpuscular Hemoglobin 33.9 pg (27.0-31.2); Mean Corpuscular Volume 97.9 fl (80-94); Mean Platelet Volume 8.4 fl (7.4-10.4); Neutrophils % 58.8 % (37.0-80.0); Red Blood Count 3.98 M/mm3 (4.60-6.20); Red Cell Distribution Width 13.5 % (11.5-17.5)
[2020-12-29 05:49] LABS: Hemoglobin 13.5 g/dL (14.1-18.0)
[2020-12-29 05:57] LABS: Blood Urea Nitrogen 26 mg/dl (9-20); Calcium 8.4 mg/dl (8.4-10.2); Carbon Dioxide 29 mmol/L (22.0-30.0); Chloride 106 mmol/L (98-107); Creatinine Clearance Estimated 62 mL/min (50-200); Estimated Glomerular Filt Rate 64 ml/min (>60); GFR (African American) 78 ML/MIN (>60); Glucose 104 mg/dl (74-100); Sodium 138 mmol/L (136-145)
--- NOTE | 2020-12-29 08:58 | ECG_ITS ---
APPROVED REPORT Exam: Resting ECG HR:63 bpm ECG Measurements Heart Rate 63 AXES MA 118 P 67 QRSd 164 QRS 206 QT 486 T 134 QTc 497 Conclusion Electronic ventricular pacemaker Electronically signed by : Eamon Valdez, 12/29/2020 20:19:20
--- NOTE | 2020-12-29 10:34 | HMH.ACPN2 ---
Internal Medicine - PN: Subj *Date: 12/29/20 *Time: 10:34 Interval history: He feels well this morning and looks great. His rhythm is paced. His blood pressure is quite good. He is not short of breath. He has no leg edema. His lungs are clear. He wants to go home but I would prefer to keep him at least another day. It would be nice if cardiology could see him before he is discharged. Dr. De La Rosa will be following tomorrow in my absence. Exam Vital signs and Labs for Last 24 Hours: Temp Pulse Resp BP Pulse Ox 98.3 F 70 17 141/85 H 100 12/29/20 08:00 12/29/20 10:00 12/29/20 10:00 12/29/20 10:00 12/29/20 10:00 Laboratory Results - last 24 hr 12/28/20 15:21: WBC 9.5, RBC 4.97, Hgb 16.9, Hct 49.2, MCV 99.0 H, MCH 34.0 H, MCHC 34.4, RDW 13.1, Plt Count 215, MPV 8.5, Neut % (Auto) 61.6, Lymph % (Auto) 30.0, [place] % (Auto) 5.8, Eos % (Auto) 2.0, Baso % (Auto) 0.7, Neut # (Auto) 5.8, Lymph # (Auto) 2.8, [place] # (Auto) 0.6, Eos # (Auto) 0.2, Baso # (Auto) 0.1 12/28/20 15:21: Sodium 138, Potassium 4.2, Chloride 104, Carbon Dioxide 25, Anion Gap 13.2, BUN 26 H, Creatinine 1.30 H, Estimated GFR 53 L, Est GFR ( Amer) 64, Glucose 136 H, Calcium 9.3, Total Bilirubin 0.8, Direct Bilirubin 0.5 H, Conjugated Bilirubin 0.0, Indirect Bilirubin 0.3, Unconjugated Bilirubin 0.4, AST 52, ALT 34, Alkaline Phosphatase 124, Troponin I < 0.01, NT-Pro-B Natriuret Pep 548 H, Total Protein 7.8, Albumin 4.9 12/28/20 15:21: Phosphorus 2.7, Magnesium 1.6 12/28/20 15:50: PT 23.3 H, INR 2.09 H 12/28/20 16:25: SARS-CoV-2 (PCR) Not detected, Influenza A Untype (PCR) Not detected, Influenza Type B (PCR) Not detected 12/28/20 18:39: Troponin I < 0.01 12/28/20 22:13: Digoxin < 0.40 12/29/20 05:22: WBC 7.7, RBC 3.98 L, Hgb 13.5 L D, Hct 39.0 L, MCV 97.9 H, MCH 33.9 H, MCHC 34.7, RDW 13.5, Plt Count 158 D, MPV 8.4, Neut % (Auto) 58.8, Lymph % (Auto) 30.4, [place] % (Auto) 7.0, Eos % (Auto) 2.8, Baso % (Auto) 0.9, Neut # (Auto) 4.5, Lymph # (Auto) 2.3, [place] # (Auto) 0.5, Eos # (Auto) 0.2, Baso # (Auto) 0.1 12/29/20 05:22: Sodium 138, Potassium 4.0, Chloride 106, Carbon Dioxide 29, Anion Gap 7.0, BUN 26 H, Creatinine 1.10, Estimated Creat Clear 62, Estimated GFR 64, Est GFR ( Amer) 78 D, Glucose 104 H D, Calcium 8.4 I & O for Last 24 hours: Intake & Output 12/26/20 12/27/20 12/28/20 12/29/20 11:59 11:59 11:59 11:59 Intake Total 1968 Output Total 150 / 150 Balance 1819 / 1819 Weight 184 lb - Constitutional no acute distress - *Routine HEENT Exam Head: Present: normocephalic Eye: Present: PERRL - *Routine Neck Exam Absent: JVD - Routine Chest/Breast/Axilla Exam Chest wall: Absent: tenderness - *Routine Respiratory Exam Present: CTA bilaterally - *Routine Cardiovascular Exam Present: RRR (Paced) - *Routine Abdominal Exam Present: soft. Absent: tenderness - *Routine Extremities Exam Absent: edema - *Routine Skin Exam Present: intact - *Routine Neurological Exam Present: alert, oriented X3 Assessment and Plan (1) Hypotension Status: Acute Qualifiers: Hypotension type: unspecified hypotension type Qualified Code(s): I95.9 - Hypotension, unspecified Category: Medical Code(s): I95.9 - Hypotension, unspecified (2) Wide-complex tachycardia Status: Acute Category: Medical Code(s): I47.2 - Ventricular tachycardia (3) Atrial fibrillation Status: Chronic Qualifiers: Atrial fibrillation type: paroxysmal Qualified Code(s): I48.0 - Paroxysmal atrial fibrillation Category: Medical Code(s): I48.91 - Unspecified atrial fibrillation (4) Automatic implantable cardioverter-defibrillator in situ Status: Chronic Category: Medical Code(s): Z95.810 - Presence of automatic (implantable) cardiac defibrillator (5) Chronic systolic heart failure Status: Chronic Category: Medical Code(s): I50.22 - Chronic systolic (congestive) heart failure (6) HTN (hyperte
--- NOTE | 2020-12-29 11:30 | HMH.PHAVTE ---
[facility] Pharmacy VTE Monitoring - Patient Demographics Admission date: 12/29/20 Report Date: 12/29/20 Time: 11:31 Allergies/Adverse Reactions: Patient Allergies No Known Allergies Allergy (Verified 10/17/20 13:36) Height: 1.78 m Weight: 83.461 kg Patient Problems: Current Active Problems Wide-complex tachycardia (Acute) Hypotension (Acute) Atrial fibrillation (Chronic) Chronic systolic heart failure (Chronic) HTN (hypertension) (Chronic) Automatic implantable cardioverter-defibrillator in situ (Chronic) - VTE Risk Labs: VTE Related Lab Results Hgb 13.5 g/dL (14.1-18.0) L D 12/29/20 05:22 Hct 39.0 % (42.0-52.0) L 12/29/20 05:22 Plt Count 158 K/mm3 (142-424) D 12/29/20 05:22 PT 23.3 seconds (10.1-12.5) H 12/28/20 15:50 INR 2.09 (0.9-1.1) H 12/28/20 15:50 BUN 26 mg/dl (9-20) H 12/29/20 05:22 Creatinine 1.10 mg/dl (0.66-1.25) 12/29/20 05:22 Estimated Creat Clear 62 mL/min (50-200) 12/29/20 05:22 Was VTE Risk Assessment Performed: Yes VTE Score: 3 VTE Risk Level: Low Risk - Prophylaxis Types of VTE Prophylaxis: TEDS Knee High (CORRY HOSE)
--- NOTE | 2020-12-29 15:02 | PC.NURSE ---
paged Dr. De La Rosa for Amiodarone po order secondary to gtt being complete @ [address] De La Rosa called back and ordered Amiodarone po 200mg BID to start tonight @ 2100. Order read back and verified. Order faxed to pharmacy.
--- NOTE | 2020-12-29 16:00 | PC.NURSE ---
Amiodarone gtt turned OFF
[2020-12-30] VITALS (9 sets, daily range): BP systolic 145–156; BP diastolic 64–96; PULSE 66–83; RESP 17–20; TEMP 36.6–36.7; O2SAT 95–98; BMI 26.7
--- NOTE | 2020-12-30 04:10 | PC.NURSE ---
Patient is A&O x4, patient was moved to room 215 out of step down around 1999. Patient remains on telemetry and is paced. Patient has rested well during shift, no complaints where noted from the patient. Patient did have some expiratory & inspiratory wheezing throughout upon assessment. No tachycardia or hypotension episodes noted this shift. Patient was started on PO amiodarone this shift. Call light within in reach, bed is in lowest position.
--- NOTE | 2020-12-30 08:38 | HMH.ACPN2 ---
Internal Medicine - PN: Subj *Date: 12/30/20 *Time: 08:38 Interval history: He was switched to p.o. amiodarone yesterday and remains in a paced rhythm. He feels much better. No chest pain or palpitations. He has some dyspnea with exertion. Exam Vital signs and Labs for Last 24 Hours: Temp Pulse Resp BP Pulse Ox 97.8 F 66 18 145/82 H 98 12/30/20 11:39 12/30/20 11:39 12/30/20 11:39 12/30/20 11:39 12/30/20 11:39 Laboratory Results - last 24 hr 12/30/20 08:40: PT 20.0 H, INR 1.77 H I & O for Last 24 hours: Intake & Output 12/27/20 12/28/20 12/29/20 12/30/20 11:59 11:59 11:59 11:59 Intake Total 1968 / 1968 2107 / 2107 Output Total 150 / 150 2300 / 2300 Balance 1819 / 1819 -193 / -193 Weight 184 lb 187 lb 1 oz Narrative: Sitting up in bed. Alert and oriented. Lungs are clear. Heart is regular. Extremities no edema. Assessment and Plan (1) Hypotension Status: Acute Qualifiers: Hypotension type: unspecified hypotension type Qualified Code(s): I95.9 - Hypotension, unspecified Category: Medical Code(s): I95.9 - Hypotension, unspecified (2) Wide-complex tachycardia Status: Acute Category: Medical Code(s): I47.2 - Ventricular tachycardia (3) Atrial fibrillation Status: Chronic Qualifiers: Atrial fibrillation type: paroxysmal Qualified Code(s): I48.0 - Paroxysmal atrial fibrillation Category: Medical Code(s): I48.91 - Unspecified atrial fibrillation (4) Automatic implantable cardioverter-defibrillator in situ Status: Chronic Category: Medical Code(s): Z95.810 - Presence of automatic (implantable) cardiac defibrillator (5) Chronic systolic heart failure Status: Chronic Category: Medical Code(s): I50.22 - Chronic systolic (congestive) heart failure (6) HTN (hypertension) Status: Chronic Qualifiers: Hypertension type: essential hypertension Qualified Code(s): I10 - Essential (primary) hypertension Category: Medical Code(s): I10 - Essential (primary) hypertension - Assessment and plan all Dx Assessment and Plan for all problems:: Continue cardiac monitoring. Liberalize activity. Cardiology consult tomorrow.
[2020-12-30 09:02] LABS: INR 1.77 (0.9-1.1)
--- NOTE | 2020-12-30 22:52 | PC.NURSE ---
[address] PATIENT AWAKE . TRASH AND LINENS EMPTIED. PATIENT REQUESTED A CUP OF COFFEE
[2020-12-31] VITALS (16 sets, daily range): BP systolic 108–165; BP diastolic 48–84; PULSE 60–120; RESP 17–24; TEMP 36.6–37; O2SAT 95–98; BMI 26.6
--- NOTE | 2020-12-31 | ECG_ITS ---
APPROVED REPORT Exam: Resting ECG HR:131 bpm ECG Measurements Heart Rate 131 AXES QRSd 152 QRS -75 QT 332 T 123 QTc 490 Conclusion Demand pacemaker, interpretation is based on intrinsic rhythm LBBB Abnormal ECG Electronically signed by : Eamon Valdez, 12/31/2020 08:10:14
--- NOTE | 2020-12-31 03:51 | PC.NURSE ---
pt has continued to have wheezes and dry intermittent cough. . pt hr increased to 120-130 around 0030. ekg preformed and md notified over rate and rhythm change. pt was paced at start of shift and ekg read by er md was paced with undetermined rhythm. md stated to give one time po dose. after an hour after po med hr continued to increase. hr was now 140-150 and bp was 88/60 manually. md ordered pt to start amiodorone drip with a goal heart rate less than 100. pt was in no distress with this episode. remains in pleasant mood. new iv placed in left forearm. drip started and care transferred to angelita del toro rn at this time.
--- NOTE | 2020-12-31 05:56 | PC.NURSE ---
GAVINO NOTIFIED OF CONSULT
--- NOTE | 2020-12-31 06:38 | PC.NURSE ---
[address] PATIENT AWAKE . TRASH EMPTIED AND ICE WATER REFILLED .
--- NOTE | 2020-12-31 07:29 | HMH.CNCARD ---
History of Present Illness Consult date: 12/31/20 Requesting physician: Shannon Richards Chief complaint: CP, low BP Additional Medical History:: 1. CAD A. Non-ischemic cardiomyopathy ([facility], 2008) with EF of 20-30% in past by echo and [facility] (10/2016) B. BiV ICD, 10/2016, [employer] model # G148, serial # [id number]. RV lead capped (due to lead oversensing with AICD firings) with new lead placed, 12/27/2018. C. [facility], 12/2018, Normal coronaries, EF 20%, LVEDP of 5 mm Hg. 2. PAF with RVR A. Anticoagulation with Coumadin therapy B. History of CVA 2008 C. Remote history of amiodarone use, unsure of why it was stopped. Restarted this admission, 12/2020. 3. Hypertension A. Echo, 12/23/2018, 1. Left atrium is mildly enlarged, left ventricle is mildly dilated, there is mild concentric left ventricular hypertrophy, visually estimated ejection fraction of 20-25%, left ventricle is globally hypokinetic, there is abnormal septal motion. 2. The right atrium and right ventricle are normal size and contractility. There is a catheter noted that ventricle which is likely a pacemaker on an AICD lead. 3. The aortic valve is minimally thickened and calcified, leaflet continue to display mobility. 4. The mitral and tricuspid valve leaflets are minimally thickened. 5. The pulmonic valve is poorly visualized. 6. No significant pericardial effusion noted. DOPPLER INTERROGATION: Doppler interrogation of the aortic, mitral and tricuspid valvular presence of mild mitral and mild aortic and tricuspid regurgitation, calculated right ventricular systolic pressure is 47 mmHg consistent with moderate pulmonary hypertension. Inferior vena cava is not well visualized. Diastolic parameters are inconclusive CONCLUSION: 1. Mildly enlarged left atrium, dilated left ventricle, severely reduced left ventricular systolic function, visually estimated ejection fraction 20-25%, left ventricle is globally hypokinetic, there is abnormal septal motion. Diastolic parameters are inconclusive. 2. Mild aortic, mild mitral and tricuspid regurgitation, calculated right ventricular systolic pressure is 47 mmHg consistent with moderate pulmonary hypertension. 3. No significant pericardial effusion noted 4. COPD 5. Hyperlipidemia 6. 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 He received 1 gm IV amiodarone on admission and then PO amiodarone with improvement in rate and BP with IV fluids. Due to recurrent wide complex tachycardia last night, he was restarted on IV amiodarone and currrenly denies any chest pain. Telemetry shows what appears to be a. sensing with V. pacing at 70 bpm. Pt is in NAD. IV amiodarone is infusing. [facility] History Medical History: Reports:: Arrhythmia, Atrial Fibrillation, Cardiomyopathy, Congestive Heart Failure (Systolic, EF 20 to 25%), Chronic Obstructive Pulmonary Disease (COPD), Cerebrovascular Accident (Related to atrial fibrillation.), Hyperlipidemia, Hypertension, Internal Pacemaker (Placed [address] Solares at [facility]. BIV/AICD) Denies:: Cancer, Diabetes Mellitus Type 1, Diabetes Mellitus Type 2, MRSA *Have you ever received a pneumonia vaccine?: Yes *Have you received a flu vaccine this season?: Yes Other Medical History: Reports: Hypothyroidism, Thyroid Disease Other Surgeries: Yes: No Previous Surgery, Cardiac Catheterization, Pacemaker (Placed [address] Solares at [facility]. BIV/AICD) - *Social History Last grade of school completed: 9th or 10th Smoking Status: Former smoker (Quit smoking 22 years ago) Tobacco Type: cigarettes # Packs/Day (cigarettes): 1 #Yrs smoked (if former smoker): 40 Smoking End Date: Alcohol Intake: current Alcohol Intake Frequency:: holidays/special occasions only Substance Use Type: denies use *Occupational Status:: retired (
--- NOTE | 2020-12-31 08:24 | PC.NURSE ---
Addendum entered by Lisa Alfaro RN 12/31/20 08:26: This was for 12/28 in the ED. Original Note: Late entry: Milrinone drip mixed incorrectly myself and wasted. 2nd bottle brought to me and prior to mixing was drip was cancelled. 2nd bottle was opened and wasted as well.
--- NOTE | 2020-12-31 09:04 | P.PN_ITS ---
Internal Medicine - PN: Subj *Date: 12/31/20 *Time: 09:04 Interval history: Patient's heart rate increased during the night from 130 to 140/min. He states he could not tell the difference. He denies chest pain and shortness of breath. He was placed back on amiodarone drip which slowed his heart rate into the 60s with paced rhythm. He has been seen by cardiology this morning with the following Assessment and Plan for all problems:: 1. A. fib with RVR/Wide complex tachycardia, now resolved on second round of IV amiodarone. Chronic coumadin therapy. Complete IV infusion and start PO in AM. Continue to monitor. He is also on digoxin and bisoprolol. 2. Non-ischemic cardiomyopathy with EF about 20-25% despite bisoprolol and entresto therapy. 3. HFrEF, stable on lasix therapy. No CHF on CXR with mild elevated BNP. 4. Hypotension, improved and stable. Exam Vital signs and Labs for Last 24 Hours: Temp Pulse Resp BP Pulse Ox 97.9 F 60 24 116/74 95 12/31/20 00:00 12/31/20 08:00 12/31/20 00:00 12/31/20 06:00 12/31/20 06:00 I & O for Last 24 hours: Intake & Output 12/28/20 12/29/20 12/30/20 12/31/20 11:59 11:59 11:59 11:59 Intake Total 1968 / 1968 2107 / 2107 504 / 504 Output Total 150 / 150 2300 / 2300 Balance 1819 / 1819 -193 / -193 504 / 504 Weight 184 lb 187 lb 1 oz 186 lb 5 oz - Constitutional no acute distress - *Routine Respiratory Exam Present: wheezes (Bilateral in upper lobes.) - *Routine Cardiovascular Exam Present: RRR (Monitor showing paced rhythm 60s to 70) Comments: Paced rhythm on monitor - *Routine Abdominal Exam Present: soft, normoactive bowel sounds. Absent: tenderness, distended - *Routine Extremities Exam Absent: edema, calf tenderness - *Routine Neurological Exam Present: alert, oriented X3 Assessment and Plan (1) Hypotension Status: Acute Qualifiers: Hypotension type: unspecified hypotension type Qualified Code(s): I95.9 - Hypotension, unspecified Category: Medical Code(s): I95.9 - Hypotension, unspecified (2) Wide-complex tachycardia Status: Acute Category: Medical Code(s): I47.2 - Ventricular tachycardia (3) Atrial fibrillation Status: Chronic Qualifiers: Atrial fibrillation type: paroxysmal Qualified Code(s): I48.0 - Paroxysmal atrial fibrillation Category: Medical Code(s): I48.91 - Unspecified atrial fibrillation (4) Automatic implantable cardioverter-defibrillator in situ Status: Chronic Category: Medical Code(s): Z95.810 - Presence of automatic ( implantable) cardiac defibrillator (5) Chronic systolic heart failure Status: Chronic Category: Medical Code(s): I50.22 - Chronic systolic (congestive) heart failure (6) HTN (hypertension) Status: Chronic Qualifiers: Hypertension type: essential hypertension Qualified Code(s): I10 - Essential (primary) hypertension Category: Medical Code(s): I10 - Essential (primary) hypertension - Assessment and plan all Dx Assessment and Plan for all problems:: We will follow cardiology direction. Will complete current amiodarone IV and started on p.o.
--- NOTE | 2020-12-31 09:48 | PC.NURSE ---
amiodarone drip decreased to 16.7ml/hr at this time.
--- NOTE | 2020-12-31 11:26 | CT_ITS ---
PROCEDURE: CT CHEST WO CON CLINICAL INDICATION: Amiodarone, COPD Shortness of breath COMPARISON: CR CXR2V XR chest 2V from 11/24/2017 TECHNIQUE: Axial images obtained with sagittal and coronal reformats. All CT scans at the facility use one or more dose reduction, viz: automated exposure control, ma/kV adjustment per patient size (including targeted exams where dose is matched to indication, i.e. head), or iterative reconstruction technique. FINDINGS: HEART AND MEDIASTINAL STRUCTURES: There is fusiform dilatation of the ascending thoracic aorta by 5 cm. Biventricular pacemaker with right atrial lead noted. Minimal thickening of the pericardium anteriorly measuring up 8 mm. No mediastinal or hilar mass or adenopathy. LUNGS AND PLEURAL SPACES: COPD with centrilobular and paraseptal emphysema. Scattered areas of scarring are noted. No obvious interlobular septal thickening that would indicate developing pulmonary fibrosis. There is a patchy area of ground-glass attenuation in the right lower lobe slightly posterior. This could be due to an area of pneumonia. In the left lung base posteriorly there is a 9 x 6 mm nodular opacity. No effusions are apparent. Flat like opacity in right upper lobe posteriorly nonspecific. There is evidence of old granulomatous disease with scattered calcified granulomas BONY STRUCTURES: Degenerative changes thoracic spine UPPER ABDOMEN: There are bilateral exophytic nodular opacities projecting off of the kidneys measuring 1.6 cm in the upper pole medially, 1.7 cm in the posterior aspect of the left kidney mid aspect, and 1.3 cm in the upper pole of the left kidney. The density of these are intermediate. This could be due to small cysts cyst. However, ultrasound is suggested to confirm. ADDITIONAL FINDINGS: No other significant abnormalities. IMPRESSION: 1. No evidence of amiodarone lung toxicity. COPD with centrilobular and paraseptal emphysema 2. Patchy ground-glass infiltrate in the right lower lobe possibly due to an area of infiltrate with a flat like area of opacity right upper lobe nonspecific.. 3. 9 x 6 mm nodular opacity left lower lobe. Suggest 6 month follow-up. 4. Indeterminate bilateral renal nodules. Suggest ultrasound for further evaluation. 5. 5 x 5 cm fusiform ascending aortic aneurysm Dictated by: Steven Mahajan MD 12/31/2020 13:30 Steven Mahajan MD in [place] 12/31/2020 13:30
[2020-12-31 14:14] LABS: Triiodothryronine (T3) Uptake 38 % (23.5-40.5)
[2020-12-31 14:15] LABS: Free Thyroxine Index 2.7 ug/dL (5.93-13.13); T4 (Thyroxine) 7.1 ug/dl (5.53-11.0)
[2020-12-31 14:28] LABS: Thyroid Stimulating Hormone 3.73 uIU/mL (0.465-4.68)
--- NOTE | 2020-12-31 21:53 | PC.NURSE ---
trash pulled and snack offered at this time
[2021-01-01] VITALS (11 sets, daily range): BP systolic 134–156; BP diastolic 79–91; PULSE 66–88; RESP 17–19; TEMP 36.6–37.7; O2SAT 95–98; BMI 26.3
--- NOTE | 2021-01-01 00:19 | PC.NURSE ---
He is A&Ox3. He denies pain. Continues on amiodarone. Paced on telemetry. He continues on RA.
--- NOTE | 2021-01-01 05:36 | PC.NURSE ---
ice water passed and trashed pulled at this time
[2021-01-01 06:08] LABS: Prothrombin Time 17.1 seconds (10.1-12.5)
[2021-01-01 06:16] LABS: INR 1.49 (0.9-1.1)
[2021-01-01 08:04] LABS: Basophils # 0.1 K/mm3 (0-0.2); Basophils % 0.4 % (0.1-2.0); Chloride 102 mmol/L (98-107); Eosinophils # 0.1 K/mm3 (0.0-0.4); Eosinophils % 0.6 % (0.1-12.0); Hematocrit 42.6 % (42.0-52.0); Hemoglobin 14.5 g/dL (14.1-18.0); Lymphocytes # 2.3 K/mm3 (0.7-4.5); Lymphocytes % 16.7 % (10-50); Mean Corpuscular HGB Conc 34.1 g/dL (31.8-35.4); Mean Corpuscular Hemoglobin 33.6 pg (27.0-31.2); Mean Corpuscular Volume 98.7 fl (80-94); Mean Platelet Volume 8.7 fl (7.4-10.4); Monocytes # 0.8 K/mm3 (0.1-1.0); Neutrophils # 10.2 K/mm3 (1.8-7.8); Neutrophils % 76.2 % (37.0-80.0); Platelet Count 165 K/mm3 (142-424); Potassium 3.8 mmoL/L (3.5-5.1); Red Blood Count 4.32 M/mm3 (4.60-6.20); Red Cell Distribution Width 13.4 % (11.5-17.5); Sodium 136 mmol/L (136-145); White Blood Count 13.4 K/mm3 (4.8-10.8)
[2021-01-01 08:07] LABS: Anion Gap 12.8 mEq/L (5-15); Blood Urea Nitrogen 17 mg/dl (9-20); Carbon Dioxide 25 mmol/L (22.0-30.0); Creatinine Clearance Estimated 68 mL/min (50-200); Estimated Glomerular Filt Rate 81 ml/min (>60); GFR (African American) 98 ML/MIN (>60)
[2021-01-01 08:08] LABS: Calcium 8.8 mg/dl (8.4-10.2); Glucose 113 mg/dl (74-100)
--- NOTE | 2021-01-01 08:44 | HMH.ACPN2 ---
Internal Medicine - PN: Subj *Date: 01/01/21 *Time: 08:44 Interval history: Patient states he feels fine and would like to go home. He denies chest pain and shortness of breath. He has ambulated in the room without difficulty. He is eating as usual. He states he has not slept since he has been here but has had a few catnaps during the day. Vital signs have been stable with O2 sats at 96%. He has been afebrile. CBC this a.m. shows an elevated white blood cell count of 13,400 with a hemoglobin of 14.5 hematocrit of 42.6. Blood, chemistries show normal electrolytes and renal function. TSH done yesterday was 3.73. Exam Vital signs and Labs for Last 24 Hours: Temp Pulse Resp BP Pulse Ox 97.8 F 88 17 156/91 H 97 01/01/21 08:00 01/01/21 08:41 12/31/20 19:47 01/01/21 06:00 01/01/21 06:00 Laboratory Results - last 24 hr 12/31/20 12:58: TSH 3.73, Free T4 Index 2.7 L, Thyroxine (T4) 7.1, T3 Uptake 38 01/01/21 05:36: PT 17.1 H, INR 1.49 H 01/01/21 05:36: WBC 13.4 H, RBC 4.32 L, Hgb 14.5, Hct 42.6, MCV 98.7 H, MCH 33.6 H, MCHC 34.1, RDW 13.4, Plt Count 165, MPV 8.7, Neut % (Auto) 76.2, Lymph % (Auto) 16.7, [place] % (Auto) 6.0, Eos % (Auto) 0.6, Baso % (Auto) 0.4, Neut # (Auto) 10.2 H, Lymph # (Auto) 2.3, [place] # (Auto) 0.8, Eos # (Auto) 0.1, Baso # (Auto) 0.1 01/01/21 05:36: Sodium 136, Potassium 3.8, Chloride 102, Carbon Dioxide 25, Anion Gap 12.8, BUN 17, Creatinine 0.90, Estimated Creat Clear 68, Estimated GFR 81, Est GFR ( Amer) 98, Glucose 113 H, Calcium 8.8 I & O for Last 24 hours: Intake & Output 12/29/20 12/30/20 12/31/20 01/01/21 11:59 11:59 11:59 11:59 Intake Total 1968 / 1968 210 / 2106 744 / 744 1742 / 1742 Output Total 150 / 150 2300 / 2300 500 / 500 2510 / 2510 Balance 1819 / 1819 -193 / -193 244 / 244 -768 / -768 Weight 184 lb 187 lb 1 oz 186 lb 5 oz 184 lb 1 oz - Constitutional no acute distress - *Routine Respiratory Exam Present: CTA bilaterally (Anteriorly and posteriorly) - *Routine Cardiovascular Exam Present: RRR (Monitor showing paced rhythm) - *Routine Abdominal Exam Present: soft, normoactive bowel sounds. Absent: tenderness - *Routine Extremities Exam Absent: edema, calf tenderness - *Routine Neurological Exam Present: alert, oriented X3 Assessment and Plan (1) Hypotension Status: Acute Qualifiers: Hypotension type: unspecified hypotension type Qualified Code(s): I95.9 - Hypotension, unspecified Category: Medical Code(s): I95.9 - Hypotension, unspecified (2) Wide-complex tachycardia Status: Acute Category: Medical Code(s): I47.2 - Ventricular tachycardia (3) Atrial fibrillation Status: Chronic Qualifiers: Atrial fibrillation type: paroxysmal Qualified Code(s): I48.0 - Paroxysmal atrial fibrillation Category: Medical Code(s): I48.91 - Unspecified atrial fibrillation (4) Automatic implantable cardioverter-defibrillator in situ Status: Chronic Category: Medical Code(s): Z95.810 - Presence of automatic (implantable) cardiac defibrillator (5) Chronic systolic heart failure Status: Chronic Category: Medical Code(s): I50.22 - Chronic systolic (congestive) heart failure (6) HTN (hypertension) Status: Chronic Qualifiers: Hypertension type: essential hypertension Qualified Code(s): I10 - Essential (primary) hypertension Category: Medical Code(s): I10 - Essential (primary) hypertension - Assessment and plan all Dx Assessment and Plan for all problems:: Possibly home today. He is on p.o. amiodarone 400 mg twice daily and Coumadin. INR is 1.49 today. Cardiology also to follow-up today.
--- NOTE | 2021-01-01 09:49 | HMH.PNCARD ---
Subjective Date: 01/01/21 Time: 09:49 Principal diagnosis: A. fib with RVR Interval history: 80-year-old white male in bed in no acute distress. Denies any chest pain, pressure or tightness. States he is ready to go home. Telemetry shows sinus rhythm with ventricular pacing overnight. No recurrent A. fib. IV amiodarone finished earlier this morning with p.o. dose started this AM. Exam Vital signs and Labs for Last 24 Hours: Temp Pulse Resp BP Pulse Ox 97.8 F 85 19 141/89 H 96 01/01/21 08:00 01/01/21 08:47 01/01/21 08:47 01/01/21 08:47 01/01/21 08:47 Laboratory Results - last 24 hr 12/31/20 12:58: TSH 3.73, Free T4 Index 2.7 L, Thyroxine (T4) 7.1, T3 Uptake 38 01/01/21 05:36: PT 17.1 H, INR 1.49 H 01/01/21 05:36: WBC 13.4 H, RBC 4.32 L, Hgb 14.5, Hct 42.6, MCV 98.7 H, MCH 33.6 H, MCHC 34.1, RDW 13.4, Plt Count 165, MPV 8.7, Neut % (Auto) 76.2, Lymph % (Auto) 16.7, [place] % (Auto) 6.0, Eos % (Auto) 0.6, Baso % (Auto) 0.4, Neut # (Auto) 10.2 H, Lymph # (Auto) 2.3, Summit # (Auto) 0.8, Eos # (Auto) 0.1, Baso # (Auto) 0.1 01/01/21 05:36: Sodium 136, Potassium 3.8, Chloride 102, Carbon Dioxide 25, Anion Gap 12.8, BUN 17, Creatinine 0.90, Estimated Creat Clear 68, Estimated GFR 81, Est GFR ( Amer) 98, Glucose 113 H, Calcium 8.8 I & O for Last 24 hours: Intake & Output 12/29/20 12/30/20 12/31/20 01/01/21 11:59 11:59 11:59 11:59 Intake Total 1968 / 1968 210 / 2106 744 / 744 1742 / 1742 Output Total 150 / 150 2300 / 2300 500 / 500 2510 / 2510 Balance 1819 / 1819 -193 / -193 244 / 244 -768 / -768 Weight 184 lb 187 lb 1 oz 186 lb 5 oz 184 lb 1 oz - Constitutional no acute distress - *Routine HEENT Exam Head: Present: normocephalic Eye: Present: EOMI, PERRL ENT: Present: mucous membranes moist - *Routine Neck Exam Present: supple. Absent: lymphadenopathy - *Routine Respiratory Exam Present: CTA bilaterally - *Routine Cardiovascular Exam Present: RRR - *Routine Abdominal Exam Present: soft, normoactive bowel sounds. Absent: tenderness - *Routine Extremities Exam Absent: cyanosis, clubbing, edema - *Routine Skin Exam Present: warm. 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 Hypotension, improved with medication adjustment 2. Wide-complex tachycardia versus A. fib with aberrancy and RVR, controlled on amiodarone, bisoprolol and digoxin. No evidence of pulmonary fibrosis by CT scan of the chest. 3. Nonischemic cardiomyopathy, patient continues on bisoprolol, digoxin and Entresto therapy. 4. Thoracic ascending aortic aneurysm, 5 x 5 cm. We will discuss referral for evaluation and treatment as an outpatient. 5. Pulmonary nodule left lung, follow-up CT in 6 months Okay for discharge from cardiology standpoint with follow-up in our office next week. Home medication recommendations Amiodarone 400 mg twice daily until follow-up next week then consider reducing to 400 mg daily Bisoprolol 10 mg daily Digoxin 0.125 mg daily Entresto 97/103 mg 1 tab twice daily Pravastatin 40 mg daily Lasix 40 mg 1 daily on Thursday, Thursday and Thursday at this time Coumadin as previously directed
--- NOTE | 2021-01-02 16:39 | HMH.DCSUM ---
General - General Admission date:: 12/28/20 Discharge date: 01/01/21 HPI HPI: This 80-year-old white male has known heart disease with cardiomyopathy and an ejection fraction of around 20 to 25%. He takes warfarin. He is followed by Dr. Reyes. His primary care physician is Dr. Johnnie Lincoln. He presented in Dr. Lincoln's office today for a routine recheck of his Coumadin. His blood pressure was found to be quite low and he was sent to the emergency room for further evaluation and treatment. In the emergency room he was found to have a wide-complex tachycardia and hypotension. The following is a narrative from Dr. Sedrick Shipman in the emergency room: Patient arrives with wide-complex tachycardia and low blood pressure. He is mentating well and has no acute complaints at this time. We have discussed cardioversion, but I was able to discuss his case with Dr. Reyes who thinks that the patient might do better with medication approach and has suggested amiodarone initially, followed by some metoprolol if needed and milrinone/Joni-Synephrine. Over his stay in the emergency department patient did receive some total of about 1 L of fluids to help support his pressure while we were starting medications and stabilizing the patient. Patient's heart rate improved to the 1 teens with amiodarone and metoprolol, blood pressure currently of 96/55. We will start amiodarone. I discussed this case with Dr. Richards and patient will be admitted for further management. No renal failure, no florid pulmonary edema on chest x-ray. Patient has no respiratory distress, continues to mentate well. Troponin is negative and INR is therapeutic. This is an 80-year-old male with a past medical history significant for hypertension, atrial fibrillation on Coumadin, systolic heart failure with an EF of 20 to 25% who presents to the emergency department for evaluation of hypotension noted this morning in association with substernal squeezing sensation in his chest this morning that has now resolved. He states he felt generally weak this morning, noted that he had low blood pressure. He states this typically happens about once a month often in association with chest pain, but he felt like his chest pain this morning was more severe. He is feeling better now however, but presents with a wide-complex tachycardia with a rate in the 150s to 170s. Blood pressure ranging from 70 systolic to 110 systolic. He is alert and oriented, and denies any symptomology at this time. He denies any recent fevers, vomiting, diarrhea, cough. No known exacerbating or alleviating factors. This the patient was stabilized in the emergency room and transported to the medical floor. Hospital Course Hospital Course: The patient's chest x-ray showed mild basilar scar versus atelectasis. He was admitted and placed on a cardiac surgeon and cardiology was consulted. By 12/29/2020, he felt much better. His rhythm was paced and his blood pressure was normal. He had no shortness of breath and wanted to go home. It was felt cardiology should see him before discharge. He was switched from IV amiodarone to p.o. amiodarone and remained in a paced rhythm. Cardiology did see the patient on 12/31/2020. They wanted the patient started on Coumadin and they ordered a baseline CT of the chest along with LFTs and a thyroid panel. The patient's heart rate increased again into the 130s and 140s and he had to be placed back on an amiodarone drip. His heart slowed into the 60s with a paced rhythm. His chest CT showed no evidence of amiodarone lung toxicity. There was patchy groundglass infiltrate in the right lower lobe possibly due to an area of infiltrate with a fat-like area of opacity in the right upper lobe. There was also a 9 x 6 mm nodular opacity in the left lower lobe as well as in determinate bilateral renal nodules. Radiology suggested a 6 months follow-up CT as well as an ultrasound of the kidneys. The pat
== END 2021-01-01 16:05 | disposition home or self-care (01) | DRG 315 ==
LOC: ER 16:57 → 2ND 17:39
PROVIDERS: Physician Assistant; Admitting Provider Family Medicine; Emergency Provider Emergency Medicine; PCP Internal Medicine; Visit Provider Family Medicine
DX: I95.9 Hypotension, unspecified (principal); I50.22 Chronic systolic (congestive) heart failure; I42.9 Cardiomyopathy, unspecified; I48.20 Chronic atrial fibrillation, unspecified; R07.9 Chest pain, unspecified; R00.0 Tachycardia, unspecified; I11.9 Hypertensive heart disease without heart failure; I48.0 Paroxysmal atrial fibrillation; Z95.810 Presence of automatic (implantable) cardiac defibrillator; Z79.01 Long term (current) use of anticoagulants; J44.9 Chronic obstructive pulmonary disease, unspecified; E78.5 Hyperlipidemia, unspecified; I71.2 Thoracic aortic aneurysm, without rupture; R91.1 Solitary pulmonary nodule; Z87.891 Personal history of nicotine dependence
CPT/HCPCS: 36415; 71045; 71250; 80048; 80076; 80162; 83735; 83880; 84100; 84436; 84443; 84479; 84484; 85025; 85610; 93005; 96365; 96367; 96375; 99282; J0282; J7060; U0003

== ENCOUNTER → 2021-01-15 14:32 | Outpatient (CLI) | payer MEDICARE, MEDICAID, SELFPAY ==
[2021-01-15 19:58] LABS: Prothrombin Time 32.2 seconds (10.1-12.5)
[2021-01-15 20:37] LABS: INR 2.96 (0.9-1.1)
== END ==
PROVIDERS: PCP Internal Medicine; Visit Provider Urology
DX: E78.2 Mixed hyperlipidemia (principal); I48.0 Paroxysmal atrial fibrillation; I50.22 Chronic systolic (congestive) heart failure; I71.2 Thoracic aortic aneurysm, without rupture; R06.00 Dyspnea, unspecified; Z95.810 Presence of automatic (implantable) cardiac defibrillator; I11.0 Hypertensive heart disease with heart failure; Z51.81 Encounter for therapeutic drug level monitoring; Z79.01 Long term (current) use of anticoagulants
CPT/HCPCS: 85610; 93306

== ENCOUNTER → 2021-02-01 12:11 | Outpatient (CLI) | payer MEDICARE, MEDICAID, SELFPAY ==
[2021-02-01 13:52] LABS: INR 2.87 (0.9-1.1); Prothrombin Time 28.4 seconds (9.2-12.1)
== END ==
PROVIDERS: Visit Provider Internal Medicine
DX: Z51.81 Encounter for therapeutic drug level monitoring (principal); Z79.01 Long term (current) use of anticoagulants
CPT/HCPCS: 85610

== ENCOUNTER → 2021-03-01 16:31 | Outpatient (CLI) | payer MEDICARE, MEDICAID, SELFPAY ==
[2021-03-01 18:30] LABS: Prothrombin Time 23.8 seconds (10.1-12.5)
[2021-03-01 18:36] LABS: INR 2.13 (0.9-1.1)
== END ==
PROVIDERS: Visit Provider Internal Medicine
DX: Z51.81 Encounter for therapeutic drug level monitoring (principal); Z79.01 Long term (current) use of anticoagulants; I48.91 Unspecified atrial fibrillation
CPT/HCPCS: 85610

== ENCOUNTER → 2021-03-27 16:46 | Outpatient (CLI) | payer MEDICARE, MEDICAID, SELFPAY ==
[2021-03-27 18:19] LABS: INR 2.54 (0.9-1.1)
== END ==
PROVIDERS: Visit Provider Internal Medicine
DX: Z51.81 Encounter for therapeutic drug level monitoring (principal); Z79.01 Long term (current) use of anticoagulants; I48.91 Unspecified atrial fibrillation
CPT/HCPCS: 85610

== ENCOUNTER → 2021-05-08 17:51 | Outpatient (CLI) | payer MEDICARE, MEDICAID, SELFPAY ==
[2021-05-08 19:20] LABS: Prothrombin Time 21.5 seconds (10.1-12.5)
== END ==
PROVIDERS: Visit Provider Internal Medicine
DX: Z51.81 Encounter for therapeutic drug level monitoring (principal); Z79.01 Long term (current) use of anticoagulants; I48.91 Unspecified atrial fibrillation
CPT/HCPCS: 85610

== ENCOUNTER → 2021-06-04 13:09 | Outpatient (CLI) | payer MEDICARE, MEDICAID, SELFPAY ==
[2021-06-04 13:53] LABS: INR 1.88 (0.9-1.1); Prothrombin Time 20.3 seconds (10.1-12.5)
== END ==
PROVIDERS: Visit Provider Internal Medicine
DX: Z51.81 Encounter for therapeutic drug level monitoring (principal); Z79.01 Long term (current) use of anticoagulants; I48.91 Unspecified atrial fibrillation
CPT/HCPCS: 85610

== ENCOUNTER → 2021-06-19 17:37 | Outpatient (CLI) | payer MEDICARE, MEDICAID, SELFPAY ==
[2021-06-19 19:34] LABS: INR 2.54 (0.9-1.1); Prothrombin Time 26.8 seconds (10.1-12.5)
== END ==
PROVIDERS: Visit Provider Internal Medicine
DX: Z51.81 Encounter for therapeutic drug level monitoring (principal); Z79.01 Long term (current) use of anticoagulants; I48.91 Unspecified atrial fibrillation
CPT/HCPCS: 85610

== ENCOUNTER → 2021-07-22 17:49 | Outpatient (CLI) | payer MEDICARE, MEDICAID, SELFPAY ==
[2021-07-22 18:46] LABS: INR 2.05 (0.9-1.1)
== END ==
PROVIDERS: Visit Provider Internal Medicine
DX: Z51.81 Encounter for therapeutic drug level monitoring (principal); Z79.01 Long term (current) use of anticoagulants; I48.91 Unspecified atrial fibrillation
CPT/HCPCS: 85610

== ENCOUNTER → 2021-08-23 16:52 | Outpatient (CLI) | payer MEDICARE, MEDICAID, SELFPAY ==
[2021-08-23 17:37] LABS: INR 2.64 (0.9-1.1); Prothrombin Time 27.8 seconds (10.1-12.5)
== END ==
PROVIDERS: Visit Provider Internal Medicine
DX: Z51.81 Encounter for therapeutic drug level monitoring (principal); Z79.01 Long term (current) use of anticoagulants
CPT/HCPCS: 85610

== ENCOUNTER → 2021-09-17 16:18 | Outpatient (CLI) | payer MEDICARE, MEDICAID, SELFPAY ==
[2021-09-17 16:53] LABS: Prothrombin Time 29.3 seconds (10.1-12.5)
== END ==
PROVIDERS: Visit Provider Internal Medicine
DX: Z51.81 Encounter for therapeutic drug level monitoring (principal); Z79.01 Long term (current) use of anticoagulants; I48.91 Unspecified atrial fibrillation
CPT/HCPCS: 85610

== ENCOUNTER → 2021-10-22 16:44 | Outpatient (CLI) | payer MEDICARE, MEDICAID, SELFPAY ==
[2021-10-22 17:35] LABS: Basophils # 0.1 K/mm3 (0-0.2); Basophils % 1.2 % (0.1-2.0); Eosinophils # 0.2 K/mm3 (0.0-0.4); Eosinophils % 1.7 % (0.1-12.0); Hematocrit 45.4 % (42.0-52.0); Hemoglobin 15.1 g/dL (14.1-18.0); Lymphocytes # 2.4 K/mm3 (0.7-4.5); Lymphocytes % 27.8 % (10-50); Mean Corpuscular HGB Conc 33.3 g/dL (31.8-35.4); Mean Corpuscular Hemoglobin 33.9 pg (27.0-31.2); Mean Corpuscular Volume 101.6 fl (80-94); Mean Platelet Volume 9.5 fl (7.4-10.4); Monocytes # 0.6 K/mm3 (0.1-1.0); Monocytes % 6.8 % (1.7-9.3); Neutrophils # 5.3 K/mm3 (1.8-7.8); Neutrophils % 62.5 % (37.0-80.0); Platelet Count 198 K/mm3 (142-424); Red Blood Count 4.47 M/mm3 (4.60-6.20); Red Cell Distribution Width 13.2 % (11.5-17.5); White Blood Count 8.5 K/mm3 (4.8-10.8)
[2021-10-22 17:46] LABS: INR 2.81 (0.9-1.1); Prothrombin Time 29.4 seconds (10.1-12.5)
[2021-10-22 18:32] LABS: Albumin Level 4.1 g/dl (3.5-5.0); Alkaline Phosphatase 120 U/L (38-126); Anion Gap 9.3 mEq/L (5-15); Bilirubin,Total 0.6 mg/dl (0.2-1.3); Blood Urea Nitrogen 23 mg/dl (9-20); Calcium 8.8 mg/dl (8.4-10.2); Carbon Dioxide 27 mmol/L (22.0-30.0); Chloride 104 mmol/L (98-107); Chol/HDL Ratio 1.9 (1-3.5); Cholesterol 167 mg/dl (140-200); Estimated Glomerular Filt Rate 81 ml/min (>60); GFR (African American) 98 ML/MIN (>60); Globulin 2.1 g/dL (1.3-3.2); Glucose 98 mg/dl (74-100); HDL Cholesterol 86 mg/dl (40-60); Potassium 4.3 mmoL/L (3.5-5.1); Sodium 136 mmol/L (136-145); Total Protein,Serum 6.2 g/dl (6.3-8.2); Triglycerides 140 mg/dl (30-150); VLDL Cholesterol 28 mg/dL (0-40)
[2021-10-22 18:34] LABS: Alanine Aminotransferase 28 U/L (12-78); Aspartate Amino Transferase 41 U/L (17-59)
[2021-10-22 18:43] LABS: Direct LDL Cholesterol 54.54 mg/dL (100-129)
[2021-10-22 18:49] LABS: Free T4 (Free Thyroxine) 1.25 ng/dl (0.78-2.19)
[2021-10-22 19:04] LABS: Thyroid Stimulating Hormone 1.15 uIU/mL (0.465-4.68)
== END ==
PROVIDERS: PCP Internal Medicine; Visit Provider Internal Medicine
DX: I25.10 Atherosclerotic heart disease of native coronary artery without angina pectoris (principal); I11.0 Hypertensive heart disease with heart failure; I50.22 Chronic systolic (congestive) heart failure; I48.91 Unspecified atrial fibrillation; E78.5 Hyperlipidemia, unspecified; E03.9 Hypothyroidism, unspecified; R73.01 Impaired fasting glucose; J44.9 Chronic obstructive pulmonary disease, unspecified; M10.9 Gout, unspecified
CPT/HCPCS: 80053; 80061; 84439; 84443; 84550; 85025; 85610

== ENCOUNTER → 2021-11-18 17:01 | Outpatient (CLI) | payer MEDICARE, MEDICAID, SELFPAY ==
[2021-11-18 20:16] LABS: INR 2.28 (0.9-1.1); Prothrombin Time 24.2 seconds (10.1-12.5)
[2021-11-18 21:22] LABS: Vitamin B12 239 pg/mL (239-931)
[2021-11-18 21:25] LABS: Folate 6.66 ng/mL
== END ==
PROVIDERS: PCP Internal Medicine; Visit Provider Internal Medicine
DX: D75.89 Other specified diseases of blood and blood-forming organs (principal); E53.8 Deficiency of other specified B group vitamins; Z51.81 Encounter for therapeutic drug level monitoring; Z79.01 Long term (current) use of anticoagulants
CPT/HCPCS: 82607; 82746; 85610

== ENCOUNTER → 2021-12-20 12:25 | Outpatient (CLI) | payer MEDICARE, MEDICAID, SELFPAY ==
[2021-12-20 15:05] LABS: INR 2.02 (0.9-1.1); Prothrombin Time 21.7 seconds (10.1-12.5)
== END ==
PROVIDERS: PCP Internal Medicine; Visit Provider Internal Medicine
DX: Z51.81 Encounter for therapeutic drug level monitoring (principal); Z79.01 Long term (current) use of anticoagulants
CPT/HCPCS: 85610

== ENCOUNTER → 2022-01-20 13:23 | Outpatient (CLI) | payer MEDICARE, MEDICAID, SELFPAY ==
[2022-01-20 14:22] LABS: INR 2.08 (0.9-1.1); Prothrombin Time 22.3 seconds (10.1-12.5)
== END ==
PROVIDERS: PCP Internal Medicine; Visit Provider Internal Medicine
DX: Z51.81 Encounter for therapeutic drug level monitoring (principal); Z79.01 Long term (current) use of anticoagulants
CPT/HCPCS: 85610

== ENCOUNTER → 2022-02-14 16:50 | Outpatient (CLI) | payer MEDICARE, MEDICAID, SELFPAY ==
[2022-02-14 18:08] LABS: INR 2.15 (0.9-1.1)
== END ==
PROVIDERS: PCP Internal Medicine; Visit Provider Internal Medicine
DX: Z51.81 Encounter for therapeutic drug level monitoring (principal); Z79.01 Long term (current) use of anticoagulants; I48.91 Unspecified atrial fibrillation
CPT/HCPCS: 85610

== ENCOUNTER → 2022-03-24 17:10 | Outpatient (CLI) | payer MEDICARE, MEDICAID, SELFPAY | PROVIDERS: PCP Internal Medicine; Visit Provider Internal Medicine | DX: Z51.81 Encounter for therapeutic drug level monitoring (principal); Z79.01 Long term (current) use of anticoagulants ==

== ENCOUNTER → 2022-03-25 15:05 | Outpatient (CLI) | payer MEDICARE, MEDICAID, SELFPAY ==
[2022-03-25 16:17] LABS: INR 1.91 (0.9-1.1); Prothrombin Time 19.9 seconds (10.1-12.5)
== END ==
PROVIDERS: PCP Internal Medicine; Visit Provider Internal Medicine
DX: Z51.81 Encounter for therapeutic drug level monitoring (principal); Z79.01 Long term (current) use of anticoagulants
CPT/HCPCS: 85610

== ENCOUNTER → 2022-04-22 16:27 | Outpatient (CLI) | payer MEDICARE, MEDICAID, SELFPAY ==
[2022-04-22 18:57] LABS: INR 1.95 (0.9-1.1); Prothrombin Time 20.3 seconds (10.1-12.5)
== END ==
PROVIDERS: PCP Internal Medicine; Visit Provider Internal Medicine
DX: Z51.81 Encounter for therapeutic drug level monitoring (principal); Z79.01 Long term (current) use of anticoagulants; I48.91 Unspecified atrial fibrillation
CPT/HCPCS: 85610

== ENCOUNTER → 2022-05-07 16:54 | Outpatient (CLI) | payer MEDICARE, MEDICAID, SELFPAY ==
[2022-05-07 18:35] LABS: INR 1.74 (0.9-1.1); Prothrombin Time 18.2 seconds (10.1-12.5)
[2022-05-07 19:11] LABS: Basophils # 0.1 K/mm3 (0-0.2); Eosinophils # 0.1 K/mm3 (0.0-0.4); Eosinophils % 1.9 % (0.1-12.0); Hematocrit 45.9 % (42.0-52.0); Hemoglobin 15.2 g/dL (14.1-18.0); Lymphocytes # 1.7 K/mm3 (0.7-4.5); Lymphocytes % 24.7 % (10-50); Mean Corpuscular HGB Conc 33.1 g/dL (31.8-35.4); Mean Corpuscular Hemoglobin 33.8 pg (27.0-31.2); Mean Corpuscular Volume 102.2 fl (80-94); Mean Platelet Volume 9.9 fl (7.4-10.4); Monocytes # 0.4 K/mm3 (0.1-1.0); Monocytes % 5.3 % (1.7-9.3); Neutrophils # 4.7 K/mm3 (1.8-7.8); Neutrophils % 67.1 % (37.0-80.0); Platelet Count 252 K/mm3 (142-424); Red Blood Count 4.49 M/mm3 (4.60-6.20); Red Cell Distribution Width 13.4 % (11.5-17.5)
== END ==
PROVIDERS: PCP Internal Medicine; Visit Provider Internal Medicine
DX: Z51.81 Encounter for therapeutic drug level monitoring (principal); Z79.01 Long term (current) use of anticoagulants; I48.91 Unspecified atrial fibrillation; J44.1 Chronic obstructive pulmonary disease with (acute) exacerbation
CPT/HCPCS: 85025; 85610

== ENCOUNTER 2022-05-15 13:24 | Observation (INO) | payer MEDICARE, MEDICAID, SELFPAY ==
[2022-05-15] VITALS (12 sets, daily range): BP systolic 106–149; BP diastolic 63–89; PULSE 60–114; RESP 18–22; TEMP 36.6–37.1; O2SAT 96–100; BMI 26.6; BMI 27.2
--- NOTE | 2022-05-15 13:27 | ECG_ITS ---
APPROVED REPORT Exam: Resting ECG HR:85 bpm ECG Measurements Heart Rate 85 AXES NJ 131 P 62 QRSd 162 QRS 109 QT 469 T 91 QTc 511 Conclusion ELECTRONIC VENTRICULAR PACEMAKER MARKED ST ELEVATION, CONSIDER INFERIOR INJURY [MARKED ST ELEVATION W/O NORMALLY INFLECTED T-WAVE IN II/aVF] ST DEPRESSION, CONSIDER SUBENDOCARDIAL INJURY [0.1+ mV ST DEPRESSION] ACUTE [place] UNCONFIRMED REPORT Electronically signed by : Eamon Valdez MD 05/16/2022 13:28:49
--- NOTE | 2022-05-15 13:46 | XR_ITS ---
FINAL REPORT CLINICAL HISTORY: v tach COMPARISON: December 2020 FINDINGS: SINGLE VIEW CHEST There is a left subclavian ICD. The heart size is enlarged. The mediastinum is within normal limits. No acute pulmonary abnormality is identified. There is no evidence of pneumothorax. The bony thorax is intact. IMPRESSION: No acute cardiopulmonary process. Reviewed, Interpreted and Dictated by Isac Banegas III, MD Transcribed by Christopher Herrera Authenticated and [facility]
--- NOTE | 2022-05-15 13:49 | HMH.EDGENADL ---
Discharge Plan Disposition Patient Disposition: Admitted as Observation Condition: Fair Clinical Impressions Clinical Impression: Atrial flutter with rapid ventricular response, Congestive heart failure, H/O medication noncompliance, Hypomagnesemia, Acute hypokalemia Discharge ED Provider: Martin Fuentes General Adult HPI General Chief complaint: Arrhythmia/Palpitations Stated complaint: arrythmia Time Seen by Provider: 05/15/22 13:49 History of Present Illness HPI narrative: Patient is brought in by EMS. He states that his automatic internal defibrillator began shocking him an hour or so before arrival. He says that it shocked him every 5 minutes for an hour. He denies having chest pain during that time but was having some tightness in his left arm. Some slight shortness of breath. He became diaphoretic when he arrived to the emergency department. No nausea or vomiting. He tried to take a nitroglycerin at home but says that his defibrillator shocked him and he dropped the nitroglycerin on the floor. He was given nitroglycerin by EMS in route to the hospital. EMS brings in EKGs obtained in the field. His initial EKG shows wide-complex tachycardia, but he converted to a ventricular electrical paced rhythm upon arrival at the hospital. Patient states that he had a problem with his defibrillator discharging about 2 years ago, one of the leads was removed by Dr. Reyes and since then has not had a problem. 2 weeks ago he says that he received a call from the hospital that his defibrillator had discharged. He said he had felt just a slight push from his defibrillator but not the usual shock that he was used to. Related Data Home Medications Medication Instructions Recorded Confirmed allopurinol 300 mg tablet 300 mg PO DAILY gout #90 tabs 12/22/18 05/15/22 levothyroxine 100 mcg tablet 100 mcg PO DAILY thyroid #90 tabs 12/22/18 05/15/22 warfarin 3 mg tablet 3 mg PO DAILY Blood thinner 12/29/20 03/27/21 amoxicillin 500 mg capsule 1,000 mg PO BID Infection 05/15/22 05/15/22 bisoprolol fumarate 10 mg tablet 10 mg PO DAILY Hypertension 05/15/22 05/15/22 cyanocobalamin (vitamin B-12) 1,000 mcg PO DAILY Supplement 05/15/22 05/15/22 1,000 mcg tablet pravastatin 40 mg tablet 40 mg PO HS Cholesterol 05/15/22 05/15/22 prednisone 10 mg tablet 10 mg PO DIRECTED STEROID 05/15/22 05/15/22 sacubitril 97 mg-valsartan 103 mg 1 tab PO BID CHF 05/15/22 05/15/22 tablet (Entresto) Allergies Allergy/AdvReac Type Severity Reaction Status Date / Time No Known Allergies Allergy Verified 03/27/21 13:30 PFSH PFSH Medical History Atrial fibrillation Atrial flutter Chest pain Chronic systolic heart failure COPD (chronic obstructive pulmonary disease) Dyspnea HLD (hyperlipidemia) HTN (hypertension) 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) Palpitations Thoracic ascending aortic aneurysm Surgical History Automatic implantable cardioverter-defibrillator in situ Family History (Updated 05/15/22 @ 17:48 by Graciela Barbosa RN) Other Family history of stroke Social History (Updated 05/15/22 @ 17:49 by Graciela Barbosa RN) Smoking Status: Never smoker alcohol intake: current substance use type: denies use current occupational status: retired Travel in the last 8 weeks: Inside the [place] household members: none housing: house caffeine: Yes (coffee) ROS Obtained: Yes Systems reviewed as appropriate & no additional complaints except as documented Constitutional Constitutional: Denies fever(s), Denies headache(s) and Denies weakness ENT Ears, Nose, Mouth, and Throat: Denies headache(s), Denies nasal discharge and Denies sore throat Cardiovascular Cardiovascular: Reports as per HPI, Denies chest pain, Reports diaphoresis, Reports radiating jaw, neck or arm pain (Left
[2022-05-15 14:01] LABS: Anion Gap 15.3 mEq/L (5-15); Blood Urea Nitrogen 25 mg/dl (9-20); Calcium 8.5 mg/dl (8.4-10.2); Carbon Dioxide 24 mmol/L (22.0-30.0); Chloride 101 mmol/L (98-107); Estimated Glomerular Filt Rate 92 ml/min (>60); GFR (African American) 112 ML/MIN (>60); Glucose 232 mg/dl (74-100); Magnesium 1.3 mg/dl (1.6-2.3); Potassium 3.3 mmoL/L (3.5-5.1); Sodium 137 mmol/L (136-145)
[2022-05-15 14:03] LABS: INR 3.37 (0.9-1.1)
[2022-05-15 14:09] LABS: Basophils # 0.1 K/mm3 (0-0.2); Basophils % 0.4 % (0.1-2.0); Eosinophils % 0.3 % (0.1-12.0); Hematocrit 43.5 % (42.0-52.0); Hemoglobin 14.3 g/dL (14.1-18.0); Lymphocytes # 2.6 K/mm3 (0.7-4.5); Lymphocytes % 20.8 % (10-50); Mean Corpuscular HGB Conc 32.9 g/dL (31.8-35.4); Mean Corpuscular Hemoglobin 34.1 pg (27.0-31.2); Mean Corpuscular Volume 103.5 fl (80-94); Monocytes # 0.4 K/mm3 (0.1-1.0); Monocytes % 3.4 % (1.7-9.3); Neutrophils # 9.2 K/mm3 (1.8-7.8); Neutrophils % 75.1 % (37.0-80.0); Platelet Count 297 K/mm3 (142-424); Red Cell Distribution Width 13.3 % (11.5-17.5); White Blood Count 12.2 K/mm3 (4.8-10.8)
[2022-05-15 14:13] LABS: Digoxin < 0.40 ng/ml (0.2-2.00)
[2022-05-15 14:14] LABS: NT Pro Brain Natriuretic Pep. 3100 pg/mL (0-450)
[2022-05-15 14:15] LABS: Troponin I < 0.01 ng/ml (0.00-0.034)
[2022-05-15 14:32] LABS: Thyroid Stimulating Hormone 1.59 uIU/mL (0.465-4.68)
--- NOTE | 2022-05-15 14:40 | CA_ITS ---
APPROVED REPORT EXAM: Comprehensive 2D, Doppler, and color-flow Echocardiogram Representative Phlebotomy Services: Kaykay Raman CRT Ht: 5 ft 10 in Wt: 186lbs BSA: 2.02 BP: 106/71 mmHg Indications: Congestive Heart Failure, sob, chf, AICD, non-compliant with meds . EF 30-40% 01/16/21 echo.. Pt shocked by defibrillator several times at home today. 2D Dimensions LVOT 1.98 cm (M/F) 1.5-2.5 LA Volume 61.10 mL LA Volume Index 30.20 mL/m2 (M/F) 16-34 M-Mode Dimensions RVDd 3.99 cm (0.9-2.6) LA Diam 4.61 cm (1.9-4.0) LVDd 6.90 cm (3.5-5.7) Ao Diam 4.38 cm (2.0-3.7) LVDs 5.78 cm (3.5-5.7) IVSd 1.17 cm (0.6-1.1) PWd 1.08 cm (0.6-1.1) EF (Teich) 33.20% FS 16.20% EDV (Teich) 247.30 mL TAPSE 1.74 (<1.7) ESV (Teich) 165.20 mL LV Diastology E Decel Time 393.00 (160-240 msec) E/A Ratio 1.19 MED E' 4.30 (< 7 cm/sec) MED A' 6.70 cm/s E'/MED E' Ratio 18.56 (>14) LAT E' 5.60 (<10 cm/sec) LAT A' 6.80 cm/s E/LAT E' Ratio 14.25 (>14) Aortic Valve AI PHT 766.00 ms AO Peak GR. 7.30 mmHg Mitral Valve MV A Velocity 67.00 (40-130 cm/s) E/A Ratio 1.19 MV Decel. Time 393.00 (160-240 ms) Pulmonary Valve PV Peak Velocity 148.00 (50-150 cm/s) Tricuspid Valve TR P. Velocity 268.00 cm/s RAP Estimate 10.00 mmHg RVSP 38.70 mmHg Left Ventricle Technically difficult study because of the patient factors and poor acoustic windows. Left atrium is mildly enlarged, left ventricle is mildly dilated, severely reduced left ventricular systolic function, estimated ejection fraction approximately 25% left ventricle is globally hypokinetic. There is abnormal septal motion. Grade 1 diastolic dysfunction seen without tissue Doppler evidence of raise left atrial pressure. Right Ventricle Right atrium and right ventricle are mildly enlarged with normal contractility, AICD lead seen in right ventricle. Aortic Valve Aortic valve is thickened and calcified without aortic stenosis, there is mild aortic insufficiency. Mitral Valve Mitral valve leaflets are minimally thickened, there is mild mitral regurgitation. Tricuspid Valve Tricuspid valve is grossly normal, there is mild tricuspid regurgitation, calculated right ventricular systolic pressure 38 mmHg. Pulmonic Valve Pulmonic valve is poorly visualized. Great Vessels Aortic root is normal size. Inferior vena cava is poorly visualized. Pericardium No significant pericardial effusion noted. Conclusion 1. Biatrial enlargement, dilated left ventricle, estimated ejection fraction 25%, left ventricle is globally hypokinetic, there is abnormal septal motion, grade 1 diastolic dysfunction seen without tissue Doppler evidence of raise left atrial pressure. 2. Mild aortic, mild mitral and tricuspid regurgitation, calculated right ventricular systolic pressure 38 mmHg. 3. No significant pericardial effusion noted. 4. Inferior vena cava is poorly visualized. Electronically signed by : Peter Yanez MD 05/16/2022 14:00:44
--- NOTE | 2022-05-15 14:41 | EXP.CARD.CON ---
History of Present Illness History of Present Illness Consult date: 05/15/22 Requesting physician: Martin Fuentes Consult reason: chest pain Chief complaint: AICD shock History of present illness: This is an 82-year-old white gentleman who presented to the emergency department with complaints that his AICD had shocked him several times for approximately an hour prior to his arrival. He reported that the AICD was shocking him every 5 minutes. The patient denies any chest pain but states that he was having racing of the heart. He states that his heart was just taking off very fast and he felt short of breath. He states that he is always somewhat short of breath because of his COPD. He states that his shortness of breath is mostly with exertion and improves with rest. He states that when he was being shocked by his AICD he did become diaphoretic. He denied any nausea or vomiting. He states that the first shock knocked him to his knees but he did not have any episodes of syncope and remained conscious the entire time. When EMS got to the patient he was found to be in a wide-complex tachycardia. They did give him morphine and 2 doses of nitroglycerin. While I am evaluating the patient he is currently in sinus rhythm. Interrogation of his [employer] AICD shows that the patient was not in ventricular tachycardia or ventricular fibrillation. He was actually in one-to-one atrial flutter with a rate in the V. fib zone so that is why his defibrillator kept shocking him. His right was up in the 220s to 230s when he was being shocked. The patient states now he feels much better. He states that he is just a little fatigued and a little short of breath with exertion but other than that he feels back to baseline. He denies any fever, chills, nausea, vomiting, diarrhea, PND or orthopnea. He denies any lower extremity edema. [facility] Medical History (Updated 05/15/22 @ 14:48 by Carol Lao APRN) Atrial fibrillation Atrial flutter Chest pain Chronic systolic heart failure COPD (chronic obstructive pulmonary disease) Dyspnea HLD (hyperlipidemia) HTN (hypertension) 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) Palpitations Thoracic ascending aortic aneurysm Surgical History (Updated 05/15/22 @ 14:47 by Carol Lao APRN) Automatic implantable cardioverter-defibrillator in situ Social History Smoking Status: Never smoker alcohol intake: current substance use type: denies use current occupational status: retired Travel in the last 8 weeks: [place] the [place] household members: none housing: house caffeine: Yes (coffee) Review of Systems Review of Systems Review of systems:: pertinent systems reviewed and negative unless documented below Constitutional Constitutional: Reports system reviewed and no additional complaints, except as documented, Reports fatigue and Reports lethargy Eyes Eyes: Reports system reviewed and no additional complaints, except as documented ENT Ears, Nose, Mouth, and Throat: Reports system reviewed and no additional complaints, except as documented *Cardiovascular Cardiovascular: Reports system reviewed and no additional complaints, except as documented, Denies chest pain, Reports dyspnea and Reports dyspnea on exertion Comments: AICD shocking *Respiratory Respiratory: Reports system reviewed and no additional complaints, except as documented, Reports cough, Reports dyspnea and Reports dyspnea on exertion *Gastrointestinal Gastrointestinal: Reports system reviewed and no additional complaints, except as documented *Genitourinary Genitourinary: Reports system reviewed and no additional complaints, except as documented Integumentary/Breasts Skin/Breast: Reports system reviewed and no additional complaints, except as documented *Neurologic Neurologic: Reports system reviewed and no additional complaints, except as documented Psychiatric Psychiatric: Reports system r
--- NOTE | 2022-05-15 15:08 | PC.NURSE ---
vascular here for echo
--- NOTE | 2022-05-15 15:32 | PC.NURSE ---
Dr Fuentes speaking to Dr Adams for admission
--- NOTE | 2022-05-15 15:39 | PC.NURSE ---
vascular finished with echo
[2022-05-15 16:39] LABS: Coronavirus 19, PCR Not Detected (NotDetected); Influenza A, PCR Not Detected (NotDetected); Influenza B, PCR Not Detected (NotDetected)
--- NOTE | 2022-05-15 17:14 | PC.NURSE ---
report called to yocasta farias
--- NOTE | 2022-05-15 17:35 | PC.NURSE ---
Pt arrived to the floor at this time
[2022-05-15 18:54] LABS: Troponin I 0.08 ng/ml (0.00-0.034)
--- NOTE | 2022-05-15 20:56 | EXP.HP ---
History of Present Illness *Admission Date: 05/15/22 *Reason for visit:: AICD Shock, Rapid Heart Rate *History of present illness: Mr. Hudson is a 82-year-old male with a past medical history that is positive for Atrial Fibrillation/Atrial Flutter, HFrEF, HTN, Hyperlipidemia, COPD. He presents to [facility] due to being shocked by his AICD several times on the day of presentation. The patient was seen following his admission to the medical surgical unit, he reports being shocked several times today prior to admission, one of the shocks knocked him in the floor. He denies losing consciousness, feeling dizzy or having any shortness of air or chest pain with the event. Per records reviewed when EMS arrived his rate was in the 220-230 range. He was noted to be in a Wide QRS Tachycardia. He was also noted not to have been taking his rate controlling medication. He has been evaluated by Cardiology and started on Amiodarone and given a dose of Bisoprolol. He had an echo today. [facility] Medical History (Updated 05/16/22 @ 10:42 by Carol Lao APRN) Atrial fibrillation Atrial flutter Chest pain Chronic systolic heart failure COPD (chronic obstructive pulmonary disease) Dyspnea HLD (hyperlipidemia) HTN (hypertension) 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) Palpitations Thoracic ascending aortic aneurysm Surgical History (Updated 05/16/22 @ 10:42 by Carol Lao APRN) Automatic implantable cardioverter-defibrillator in situ Biventricular ICD (implantable cardioverter-defibrillator) in place Family History Other Family history of stroke Social History Smoking Status: Never smoker alcohol intake: current substance use type: denies use current occupational status: retired Travel in the last 8 weeks: [place] the [place] household members: none housing: house caffeine: Yes (coffee) Review of Systems Review of Systems Review of systems:: pertinent systems reviewed and negative unless documented below Constitutional Constitutional: Reports system reviewed and no additional complaints, except as documented Eyes Eyes: Reports system reviewed and no additional complaints, except as documented ENT Ears, Nose, Mouth, and Throat: Reports system reviewed and no additional complaints, except as documented *Cardiovascular Cardiovascular: Reports irregular heart rhythm and Reports palpitations *Respiratory Respiratory: Reports system reviewed and no additional complaints, except as documented *Gastrointestinal Gastrointestinal: Reports system reviewed and no additional complaints, except as documented *Genitourinary Genitourinary: Reports system reviewed and no additional complaints, except as documented *Musculoskeletal Musculoskeletal: Reports system reviewed and no additional complaints, except as documented Integumentary/Breasts Skin/Breast: Reports system reviewed and no additional complaints, except as documented *Neurologic Neurologic: Reports system reviewed and no additional complaints, except as documented Psychiatric Psychiatric: Reports system reviewed and no additional complaints, except as documented Endocrine Endocrine: Reports palpitations Hematologic/Lymphatic Hematologic/Lymphatic: Reports system reviewed and no additional complaints, except as documented Allergic/Immunologic Allergic/Immunologic: Reports system reviewed and no additional complaints, except as documented Meds Home Medications and Allergies Home Medications Medication Instructions Recorded Confirmed Type allopurinol 300 mg tablet 300 mg PO DAILY gout #90 tabs 12/22/18 05/15/22 History levothyroxine 100 mcg tablet 100 mcg PO DAILY thyroid #90 tabs 12/22/18 05/15/22 History warfarin 3 mg tablet 3 mg PO DAILY AFIB 12/29/20 05/16/22 History bisoprolol fumarate 10 mg tablet 10 mg PO
[2022-05-15 21:01] LABS: Troponin I 0.17 ng/ml (0.00-0.034)
--- NOTE | 2022-05-15 22:54 | ECG_ITS ---
APPROVED REPORT Exam: Resting ECG HR:120 bpm ECG Measurements Heart Rate 120 AXES QRSd 167 QRS 270 QT 364 T 100 QTc 435 Conclusion UNCERTAIN IRREGULAR RHYTHM ELECTRONIC VENTRICULAR PACEMAKER -- CONTOUR ANALYSIS BASED ON INTRINSIC RHYTHM RIGHT AXIS DEVIATION [QRS AXIS > 100] INTRAVENTRICULAR CONDUCTION DELAY [130+ ms QRS DURATION] CRITICAL TEST RESULT UNCONFIRMED REPORT Electronically signed by : Eamon Valdez MD 05/16/2022 13:28:07
--- NOTE | 2022-05-15 23:05 | PC.NURSE ---
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 house notified to review tracing RT notified that EKG needed. upon completion of EKG at 2254 R Rory AKINS notified states she will review strip REGLA just continue to monitor rate and stability at this time
[2022-05-16] VITALS: BP 131/73; PULSE 63; PULSE 66; RESP 18; TEMP 36.6; O2SAT 98
[2022-05-16 04:00] VITALS: BP 140/82; PULSE 67; RESP 20; TEMP 36.5; O2SAT 98
[2022-05-16 04:30] VITALS: BMI 27.1
--- NOTE | 2022-05-16 06:10 | PC.NURSE ---
pt has rested well throughout shift, pt is alert and oriented x 4, no complaints of chest pain, pt reports no shocks from defibrillator this shift, rhythm is paced on telemetry, good urine output after lasix, vss no distress noted
[2022-05-16 07:44] LABS: Basophils # 0.1 K/mm3 (0-0.2); Basophils % 0.7 % (0.1-2.0); Eosinophils # 0.1 K/mm3 (0.0-0.4); Eosinophils % 0.6 % (0.1-12.0); Hematocrit 48.3 % (42.0-52.0); Hemoglobin 15.6 g/dL (14.1-18.0); Lymphocytes # 2.9 K/mm3 (0.7-4.5); Mean Corpuscular HGB Conc 32.3 g/dL (31.8-35.4); Mean Corpuscular Volume 105.1 fl (80-94); Mean Platelet Volume 9.6 fl (7.4-10.4); Monocytes # 0.8 K/mm3 (0.1-1.0); Monocytes % 7.1 % (1.7-9.3); Neutrophils # 7.7 K/mm3 (1.8-7.8); Neutrophils % 66.5 % (37.0-80.0); Platelet Count 226 K/mm3 (142-424); Red Cell Distribution Width 13.4 % (11.5-17.5); White Blood Count 11.5 K/mm3 (4.8-10.8)
[2022-05-16 07:50] LABS: Alanine Aminotransferase 57 U/L (12-78); Albumin Level 4.3 g/dl (3.5-5.0); Albumin/Globulin Ratio 1.8 (1.1-1.8); Alkaline Phosphatase 139 U/L (38-126); Anion Gap 13.4 mEq/L (5-15); Aspartate Amino Transferase 57 U/L (17-59); Bilirubin,Total 1.1 mg/dl (0.2-1.3); Blood Urea Nitrogen 27 mg/dl (9-20); Calcium 9.3 mg/dl (8.4-10.2); Carbon Dioxide 31 mmol/L (22.0-30.0); Chloride 98 mmol/L (98-107); Cholesterol 185 mg/dl (140-200); Creatinine Clearance Estimated 68 mL/min (50-200); Estimated Glomerular Filt Rate 81 ml/min (>60); GFR (African American) 98 ML/MIN (>60); Globulin 2.4 g/dL (1.3-3.2); Glucose 115 mg/dl (74-100); Magnesium 1.8 mg/dl (1.6-2.3); Potassium 3.4 mmoL/L (3.5-5.1); Sodium 139 mmol/L (136-145); Total Protein,Serum 6.7 g/dl (6.3-8.2); Triglycerides 129 mg/dl (30-150); VLDL Cholesterol 26 mg/dL (0-40)
[2022-05-16 07:57] LABS: Chol/HDL Ratio 1.7 (1-3.5); HDL Cholesterol 112 mg/dl (40-60)
[2022-05-16 08:00] VITALS: BP 135/75; PULSE 67; RESP 22; TEMP 36.8; O2SAT 95
[2022-05-16 08:01] LABS: Direct LDL Cholesterol 52.02 mg/dL (100-129)
--- NOTE | 2022-05-16 09:30 | HMH.PHAINT1 ---
Pharmacy Intervention Comments: MEDICATION RECONCILIATION COMPLETED ON PATIENT USING EXTERNAL FILL HISTORY FROM PHARMACY. -BETTY CAMPOVERDE, AZALIAD
--- NOTE | 2022-05-16 10:32 | EXP.CARD.PN ---
Subjective Subjective Date: 05/16/22 Time: 10:30 Principal diagnosis: atrial flutter, AICD shocks Interval history: This is an 82-year-old gentleman who presented to the emergency department with complaints of his AICD shocking him multiple times prior to his arrival to the ED. The patient states that he felt like his device was shocking him at least every 5 minutes. Once the patient was in the emergency department his AICD was interrogated and this showed that he was shocked more than 10 times but these were inappropriate shocks for one-to-one atrial flutter. His atrial flutter was in the V. fib zone/heart rate zone so it was shocking him for the heart rates in the 220-230's but this was not a shockable rhythm. The patient was converted back to sinus rhythm during my evaluation of the patient. Upon further discussion the patient had stopped taking majority of his cardiac medications because he took his last pills and never called for refills and did not come in for any cardiology appointments. This morning he states that he is feeling much better. He states he is a little nervous to go home and get shocked again. But he denies any chest pain or pressure. He denies any shortness of breath or edema. He denies any fever, chills, nausea, vomiting, diarrhea, PND or orthopnea. He states that he feels a little tired today because he did not sleep through the night because he was in the hospital. He is now back on his amiodarone and bisoprolol. His rate is in the 70s and no arrhythmias were noted throughout the night. Exam Data for Last 24 hours Vital signs and Labs for Last 24 Hours: Temp Pulse Resp BP Pulse Ox 98.3 F 67 22 135/75 95 05/16/22 08:00 05/16/22 08:00 05/16/22 08:00 05/16/22 08:00 05/16/22 08:00 Laboratory Results - last 24 hr 05/15/22 13:34: WBC 12.2 H, RBC 4.20 L, Hgb 14.3, Hct 43.5, MCV 103.5 H, MCH 34.1 H, MCHC 32.9, RDW 13.3, Plt Count 297, MPV 9.0, Neut % (Auto) 75.1, Lymph % (Auto) 20.8, Falls % (Auto) 3.4, Eos % (Auto) 0.3, Baso % (Auto) 0.4, Neut # (Auto) 9.2 H, Lymph # (Auto) 2.6, Falls # (Auto) 0.4, Eos # (Auto) 0.0, Baso # (Auto) 0.1 05/15/22 13:34: Sodium 137, Potassium 3.3 L, Chloride 101, Carbon Dioxide 24, Anion Gap 15.3 H, BUN 25 H, Creatinine 0.80, Estimated GFR 92, Est GFR ( Amer) 112, Glucose 232 H, Calcium 8.5, Magnesium 1.3 L 05/15/22 13:34: Troponin I < 0.01, NT-Pro-B Natriuret Pep 3100 H, TSH 1.59 05/15/22 13:34: Digoxin < 0.40 05/15/22 13:34: PT 34.0 H, INR 3.37 H 05/15/22 16:30: SARS-CoV-2 (PCR) Not detected, Influenza A Untype (PCR) Not detected, Influenza Type B (PCR) Not detected 05/15/22 18:12: Troponin I 0.08 H 05/15/22 20:32: Troponin I 0.17 H 05/16/22 07:10: WBC 11.5 H, RBC 4.60, Hgb 15.6, Hct 48.3, MCV 105.1 H, MCH 34.0 H, MCHC 32.3, RDW 13.4, Plt Count 226, MPV 9.6, Neut % (Auto) 66.5, Lymph % (Auto) 25.0, Falls % (Auto) 7.1, Eos % (Auto) 0.6, Baso % (Auto) 0.7, Neut # (Auto) 7.7, Lymph # (Auto) 2.9, Falls # (Auto) 0.8, Eos # (Auto) 0.1, Baso # (Auto) 0.1 05/16/22 07:10: Sodium 139, Potassium 3.4 L, Chloride 98, Carbon Dioxide 31 H, Anion Gap 13.4, BUN 27 H, Creatinine 0.90, Estimated Creat Clear 68, Estimated GFR 81, Est GFR ( Amer) 98, Glucose 115 H D, Calcium 9.3, Magnesium 1.8 D, Total Bilirubin 1.1, AST 57, ALT 57, Alkaline Phosphatase 139 H, Total Protein 6.7, Albumin 4.3, Globulin 2.4, Albumin/Globulin Ratio 1.8, Triglycerides 129, Cholesterol 185, LDL Cholesterol Direct 52.02 L, VLDL Cholesterol 26, HDL Cholesterol 112 H, Cholesterol/HDL Ratio 1.7 I & O for Last 24 hours: Intake & Output 05/13/22 05/14/22 05/15/22 05/16/22 23:59 23:59 23:59 23:59 Output Total 2049 400 / 400 Balance -2049 / -2199 -400 / -400 Weight 190 lb 1 oz 189 lb 14.4 oz Narrative: Telemetry strip shows V pacing with a rate of 73 bpm Constitutional Constitutional: no acute distress and average body habitus *Routine HEENT Exam Head: Present normocephalic and atraumatic ENT: Pre
--- NOTE | 2022-05-16 11:40 | EXP.DC.SUM ---
General Admission date:: 05/15/22 Discharge date: 05/16/22 HPI HPI HPI: Mr. Hudson is a 82-year-old male with a past medical history that is positive for Atrial Fibrillation/Atrial Flutter, HFrEF, HTN, Hyperlipidemia, COPD. He presents to [facility] due to being shocked by his AICD several times on the day of presentation. The patient was seen following his admission to the medical surgical unit, he reports being shocked several times today prior to admission, one of the shocks knocked him in the floor. He denies losing consciousness, feeling dizzy or having any shortness of air or chest pain with the event. Per records reviewed when EMS arrived his rate was in the 220-230 range. He was noted to be in a Wide QRS Tachycardia. He was also noted not to have been taking his rate controlling medication. He has been evaluated by Cardiology and started on Amiodarone and given a dose of Bisoprolol. He had an echo today. Hospital Course Hospital Course Hospital Course: 82-year-old male with past medical history of Atrial Fibrillation/Atrial Flutter, HFrEF, Hypothyroidism, HTN, Hyperlipidemia, COPD presents due to AICD firing several times prior to arrival found to be in Wide QRS Tachycardia after interrogation of AICD, medications adjusted per Cardiology, did not follow-up with Cardiology as scheduled was off rate controlling medications Atrial Flutter (POA) Chronic anticoagulation - Cardiology consulted, appreciate their recommendations. Patient was noted to not be taking his rate controlling medications. AICD interrogated rate in 220-230 range Atrial Flutter. Stressed the importance of following up with cardiology. Resumed his home medications of amiodarone and bisoprolol. Improved rate control. Given control and rate, tolerance of oral medication, resumption of regimen, and baseline level of function, discharged home with close follow-up with cardiology. No changes to medication at this time. -Continued Coumadin for long-acting anticoagulation due to his paroxysmal A. fib INR goal - The patient does have a history of systolic congestive heart failure and nonischemic cardiomyopathy.? His preliminary EF is around 20 to 30% %.? Continue Entresto at 97/103 mg p.o. twice daily.? Continue his bisoprolol for CHF. No further recommendations at this time. Stable at baseline. Rate controlled. Tolerating al medication. The patient is stable for discharge home today.? The patient will need to follow-up in 1 to 2 weeks on an outpatient basis. Exam Data for Last 24 hours Vital signs and Labs for Last 24 Hours: Temp Pulse Resp BP Pulse Ox 98.3 F 67 22 135/75 95 05/16/22 08:00 05/16/22 08:00 05/16/22 08:00 05/16/22 08:00 05/16/22 08:00 Laboratory Results - last 24 hr 05/15/22 13:34: WBC 12.2 H, RBC 4.20 L, Hgb 14.3, Hct 43.5, MCV 103.5 H, MCH 34.1 H, MCHC 32.9, RDW 13.3, Plt Count 297, MPV 9.0, Neut % (Auto) 75.1, Lymph % (Auto) 20.8, [place] % (Auto) 3.4, Eos % (Auto) 0.3, Baso % (Auto) 0.4, Neut # (Auto) 9.2 H, Lymph # (Auto) 2.6, [place] # (Auto) 0.4, Eos # (Auto) 0.0, Baso # (Auto) 0.1 05/15/22 13:34: Sodium 137, Potassium 3.3 L, Chloride 101, Carbon Dioxide 24, Anion Gap 15.3 H, BUN 25 H, Creatinine 0.80, Estimated GFR 92, Est GFR ( Amer) 112, Glucose 232 H, Calcium 8.5, Magnesium 1.3 L 05/15/22 13:34: Troponin I < 0.01, NT-Pro-B Natriuret Pep 3100 H, TSH 1.59 05/15/22 13:34: Digoxin < 0.40 05/15/22 13:34: PT 34.0 H, INR 3.37 H 05/15/22 16:30: SARS-CoV-2 (PCR) Not detected, Influenza A Untype (PCR) Not detected, Influenza Type B (PCR) Not detected 05/15/22 18:12: Troponin I 0.08 H 05/15/22 20:32: Troponin I 0.17 H 05/16/22 07:10: WBC 11.5 H, RBC 4.60, Hgb 15.6, Hct 48.3, MCV 105.1 H, MCH 34.0 H, MCHC 32.3, RDW 13.4, Plt Count 226, MPV 9.6, Neut % (Auto) 66.5, Lymph % (Auto) 25.0, [place] % (Auto) 7.1, Eos % (Auto) 0.6, Baso % (Auto) 0.7, Neut # (Auto) 7.7, Lymph # (Auto) 2.9, [place] # (Auto) 0.8, Eos # (Auto) 0.1, Baso
--- NOTE | 2022-05-16 12:13 | HMH.PHAINT1 ---
Pharmacy Intervention Comments: DISCHARGE MEDICATION COUNSELING PROVIDED. DISCUSSED STARTING THE AMIODARONE (TWICE DAILY, FOR IRREGULAR HEARTBEAT, LOW BP, SLOWED HEART RATE, NAUSEA POSSIBLE) AND FUROSEMIDE (DAILY, RECOMMEND TAKING IN THE MORNING DUE TO INCREASED URINATION, MAY CAUSE LOW POTASSIUM LEVELS). PATIENT VERBALIZED NO QUESTIONS AT THIS TIME.
--- NOTE | 2022-05-19 11:10 | CARE MANAGER ---
Called and spoke with Mr. Hudson regarding post discharge status. Patient states that he was able to pickup driver his furosemide, but was unable to pickup driver the Amiodarone. He has called his PCP office this morning and they are working with [facility] to work it out. I advised patient to call Manolo back if he does not hear anything by around 1400, as to make sure that medication will be filled today. Also, advised him that if he got a survey,to please fill out and return to us. No complaints or further concerns at this time.
== END 2022-05-16 14:05 | disposition home or self-care (01) ==
LOC: ER 15:37 → 2ND 16:59
PROVIDERS: Admitting Provider Internal Medicine Adolescent Medicine; Emergency Provider Emergency Medicine; PCP Internal Medicine; Visit Provider Internal Medicine Adolescent Medicine
DX: I50.22 Chronic systolic (congestive) heart failure; Z95.810 Presence of automatic (implantable) cardiac defibrillator; I11.0 Hypertensive heart disease with heart failure; I48.0 Paroxysmal atrial fibrillation; J44.9 Chronic obstructive pulmonary disease, unspecified; E03.9 Hypothyroidism, unspecified; T82.198A Other mechanical complication of other cardiac electronic device, initial encounter; E78.5 Hyperlipidemia, unspecified; Z79.899 Other long term (current) drug therapy; Z79.01 Long term (current) use of anticoagulants; Z20.822 Contact with and (suspected) exposure to COVID-19
CPT/HCPCS: G0378; 36415; 71045; 80048; 80053; 80061; 80162; 83735; 83880; 84443; 84484; 85025; 85610; 93005; 93306; 99285; C9803; J3475; U0003; U0005

== ENCOUNTER → 2022-05-23 13:08 | Outpatient (CLI) | payer MEDICARE, MEDICAID, SELFPAY ==
[2022-05-23 14:12] LABS: INR 1.81 (0.9-1.1); Prothrombin Time 18.9 seconds (10.1-12.5)
== END ==
PROVIDERS: PCP Internal Medicine; Visit Provider Internal Medicine
DX: Z51.81 Encounter for therapeutic drug level monitoring (principal); Z79.01 Long term (current) use of anticoagulants
CPT/HCPCS: 85610

== ENCOUNTER → 2022-06-02 16:50 | Outpatient (CLI) | payer MEDICARE, MEDICAID, SELFPAY ==
[2022-06-02 17:46] LABS: INR 2.48 (0.9-1.1); Prothrombin Time 25.4 seconds (10.1-12.5)
== END ==
PROVIDERS: PCP Internal Medicine; Visit Provider Internal Medicine
DX: Z51.81 Encounter for therapeutic drug level monitoring (principal); Z79.01 Long term (current) use of anticoagulants
CPT/HCPCS: 85610

== ENCOUNTER → 2022-06-04 11:03 | Outpatient (CLI) | payer MEDICARE, MEDICAID, SELFPAY ==
--- NOTE | 2022-06-04 11:12 | CT_ITS ---
FINAL REPORT TECHNIQUE: Then section axial CT images of the chest were obtained with contrast. Three-D reformatted images were also obtained.This study was performed with techniques to keep radiation doses as low as reasonably achievable (ALARA). Individualized dose reduction techniques using automated exposure control or adjustment of mA and/or kV according to the patient''s size were employed. CLINICAL HISTORY: hx of aneurysm COMPARISON: 12/31/2020 FINDINGS: There is no evidence of pulmonary embolism. There is a 5.1 cm ascending aortic aneurysm which appears stable. There is no evidence of dissection. A left subclavian pacemaker is present. There is no evidence of mediastinal or hilar mass or adenopathy. There is moderate emphysema. Mild scarring is noted. There are mild ground-glass opacities in the right lower lobe which are stable and nonspecific. There are multiple calcified granulomas. There are ground-glass nodules in the posterior right upper lobe which are stable. Limited images of the upper abdomen demonstrate small bilateral renal masses which appears stable. A 13 mm mass on the left kidney is not a simple cyst. IMPRESSION: No evidence of pulmonary embolism. Stable 5.1 cm ascending aortic aneurysm. Stable ground-glass opacities in the right upper lobe and right lower lobe. Stable bilateral renal masses. 13 mm mass in the left kidney is not a simple cyst. Follow-up renal mass protocol CT is recommended for further evaluation. Reviewed, Interpreted and Dictated by Isac Banegas III, MD Transcribed by Kristal Owen Authenticated and [facility]
== END ==
PROVIDERS: PCP Internal Medicine; Visit Provider Physician Assistant
DX: I71.20 Thoracic aortic aneurysm, without rupture, unspecified (principal)
CPT/HCPCS: 71275; Q9967

== ENCOUNTER → 2022-06-16 16:50 | Outpatient (CLI) | payer MEDICARE, MEDICAID, SELFPAY | PROVIDERS: PCP Internal Medicine; Visit Provider Internal Medicine | DX: Z51.81 Encounter for therapeutic drug level monitoring (principal); Z79.01 Long term (current) use of anticoagulants | CPT/HCPCS: 85610 ==

== ENCOUNTER → 2022-06-30 17:07 | Outpatient (CLI) | payer MEDICARE, MEDICAID, SELFPAY ==
[2022-06-30 18:18] LABS: INR 3.16 (0.9-1.1)
== END ==
PROVIDERS: PCP Internal Medicine; Visit Provider Internal Medicine
DX: Z51.81 Encounter for therapeutic drug level monitoring (principal); Z79.01 Long term (current) use of anticoagulants
CPT/HCPCS: 85610

== ENCOUNTER → 2022-07-15 16:40 | Outpatient (CLI) | payer MEDICARE, MEDICAID, SELFPAY ==
[2022-07-15 17:48] LABS: INR 1.87 (0.9-1.1); Prothrombin Time 19.5 seconds (10.1-12.5)
== END ==
PROVIDERS: PCP Internal Medicine; Visit Provider Internal Medicine
DX: Z51.81 Encounter for therapeutic drug level monitoring (principal); Z79.01 Long term (current) use of anticoagulants; I48.91 Unspecified atrial fibrillation
CPT/HCPCS: 85610

== ENCOUNTER 2022-07-29 08:20 | Emergency (ER) | payer MEDICARE, MEDICAID, SELFPAY ==
[2022-07-29] VITALS (8 sets, daily range): BP systolic 93–146; BP diastolic 59–81; PULSE 63–78; RESP 18–20; TEMP 36.9; O2SAT 96–98; BMI 22.6
--- NOTE | 2022-07-29 08:26 | ECG_ITS ---
APPROVED REPORT Exam: Resting ECG HR:80 bpm ECG Measurements Heart Rate 80 AXES [place] 124 P 86 QRSd 177 QRS 247 QT 451 T 72 QTc 487 Conclusion ELECTRONIC VENTRICULAR PACEMAKER ABNORMAL RHYTHM ECG UNCONFIRMED REPORT Electronically signed by : Eamon Valdez MD 07/29/2022 19:10:53
--- NOTE | 2022-07-29 08:33 | XR_ITS ---
FINAL REPORT CLINICAL HISTORY: SOA COMPARISON: 05/25/2022 FINDINGS: PA and lateral views of the chest were obtained. A stable left AICD is present. The cardiac and mediastinal silhouettes are within normal limits. There are changes of emphysema. The lungs are otherwise clear. There is no pleural effusion or pneumothorax. No acute osseous abnormality is identified. IMPRESSION: Emphysema. Lungs otherwise clear. Reviewed, Interpreted and Dictated by Viktoria Grossman MD Transcribed by Edita Littlejohn Authenticated and [facility]
[2022-07-29 08:41] LABS: Basophils # 0.1 K/mm3 (0-0.2); Basophils % 0.5 % (0.1-2.0); Eosinophils # 0.1 K/mm3 (0.0-0.4); Eosinophils % 0.4 % (0.1-12.0); Hematocrit 45.2 % (42.0-52.0); Hemoglobin 15.1 g/dL (14.1-18.0); Lymphocytes # 2.1 K/mm3 (0.7-4.5); Lymphocytes % 11.5 % (10-50); Mean Corpuscular HGB Conc 33.3 g/dL (31.8-35.4); Mean Corpuscular Hemoglobin 33.3 pg (27.0-31.2); Mean Corpuscular Volume 100.1 fl (80-94); Mean Platelet Volume 8.6 fl (7.4-10.4); Monocytes # 0.9 K/mm3 (0.1-1.0); Neutrophils % 82.6 % (37.0-80.0); Platelet Count 235 K/mm3 (142-424); Red Blood Count 4.52 M/mm3 (4.60-6.20); Red Cell Distribution Width 13.6 % (11.5-17.5); White Blood Count 18.2 K/mm3 (4.8-10.8)
[2022-07-29 08:42] LABS: VBG Base Excess -0.7 mmol/L (-2.4-2.3); VBG HCO3 24.9 mmol/L (23-30); VBG Oxygen Saturation 82.1 % (50-70); VBG PCO2 45.8 mmol/L (35-51); VBG PH 7.35 mmol/L (7.31-7.41); VBG PO2 47.1 mmol/L (28-40); VBG Total CO2 26.3 mmol/L (23-27)
[2022-07-29 08:44] LABS: Chloride 102 mmol/L (98-107); Sodium 138 mmol/L (136-145)
[2022-07-29 08:45] LABS: Potassium 3.8 mmoL/L (3.5-5.1)
[2022-07-29 08:47] LABS: Alanine Aminotransferase 35 U/L (12-78); Anion Gap 13.8 mEq/L (5-15); Aspartate Amino Transferase 35 U/L (17-59); Blood Urea Nitrogen 23 mg/dl (9-20); Carbon Dioxide 26 mmol/L (22.0-30.0); Creatinine Clearance Estimated 50 mL/min (50-200); Estimated Glomerular Filt Rate 71 ml/min (>60); GFR (African American) 86 ML/MIN (>60)
[2022-07-29 08:48] LABS: Albumin Level 4.2 g/dl (3.5-5.0); Albumin/Globulin Ratio 1.4 (1.1-1.8); Alkaline Phosphatase 113 U/L (38-126); Bilirubin,Total 1.4 mg/dl (0.2-1.3); Calcium 8.7 mg/dl (8.4-10.2); Globulin 2.9 g/dL (1.3-3.2); Glucose 176 mg/dl (74-100); Total Protein,Serum 7.1 g/dl (6.3-8.2)
[2022-07-29 08:54] LABS: MANUAL DIFFERENTIAL MANUAL DIFFERENTIAL (MANUAL DIFF)
[2022-07-29 08:57] LABS: NT Pro Brain Natriuretic Pep. 727 pg/mL (0-450)
[2022-07-29 08:58] LABS: Magnesium 1.7 mg/dl (1.6-2.3)
[2022-07-29 09:01] LABS: Troponin I < 0.01 ng/ml (0.00-0.034)
[2022-07-29 09:02] LABS: C-Reactive Protein 76.7 mg/L (0-4)
--- NOTE | 2022-07-29 09:18 | HMH.EDGENADL ---
Discharge Plan Disposition Patient Disposition: Home, Self-Care Condition: Good Prescriptions Prescriptions: New prednisone 50 mg tablet 50 mg PO DAILY 7 Days Qty: 7 0RF doxycycline hyclate 100 mg capsule 100 mg PO BID 14 Days Qty: 28 0RF No Action allopurinol 300 mg tablet 300 mg PO DAILY Qty: 90 levothyroxine 100 mcg tablet 100 mcg PO DAILY Qty: 90 pravastatin 40 mg tablet 40 mg PO HS bisoprolol fumarate 10 mg tablet 10 mg PO DAILY Entresto 97-103 mg tablet 1 tab PO BID cyanocobalamin (vitamin B-12) 1,000 mcg tablet 1,000 mcg PO DAILY Label Comments: TAKE 1 TABLET BY MOUTH ONCE DAILY FOR 90 DAYS amiodarone 200 mg Tablet 400 mg PO BID 30 Days Qty: 120 0RF furosemide 20 mg Tablet 20 mg PO DAILY 30 Days Qty: 30 0RF warfarin 3 MG tablet 3 mg PO DAILY Referrals Follow up/Referrals: Johnnie Lincoln MD [Primary Care Provider] - See instructions Activity Restrictions/Add. Instructions Additional Instructions/Restrictions: You were evaluated in the emergency department today. At this time, we feel that your symptoms are related to a COPD exacerbation/possible pneumonia. Please brick picker your prescriptions at the pharmacy and use them as prescribed. Continue using your inhalers at home. Follow-up with your primary care provider over the next 48 hours. I also recommend following up with your program strategist. Return to the emergency department for any new or worsening symptoms. Clinical Impressions Clinical Impression: Acute exacerbation of chronic obstructive pulmonary disease Pneumonia Qualifiers: Pneumonia type: due to unspecified organism Laterality: unspecified laterality Lung location: unspecified part of lung Qualified Code(s): J18.9 - Pneumonia, unspecified organism Instructions Patient Instructions: Pneumonia-Adult, DI for Chronic Obstructive Pulmonary Disease Discharge ED Provider: Yani Piña General Adult HPI General Chief complaint: Arrhythmia/Palpitations Stated complaint: defibulator shocking him Time Seen by Provider: 07/29/22 08:27 Mode of Arrival: Wheelchair Source of Information: Patient Limitations: No Limitations Description of Symptoms (Recalled from ER Triage Doc. by RN): pt to ed c/o shortness of breath. pt states since , when he lays down his pacemaker shocks him. pt reports his pacemaker was placed in 2017. pt denies any pain. History of Present Illness HPI narrative: This patient is an 82-year-old male with a history of COPD, CHF status post ICD placement ([employer] 2017) with history of inappropriate shocks from ICD, hypertension, hypothyroidism, and hypomagnesemia presented to the emergency department for evaluation with concern that he has not slept since . He states that anytime he lies down, he feels short of breath and he feels like his defibrillator shocking him. He states that it is not big shocks like he has had in the past, with last 1 being back in May. He states that they are very minor, but they jolted awake. He states he has had issues with his ICD before and has had to have leads adjusted. He denies any recent fevers, chills, cough, congestion, chest pain, shortness of breath, abdominal pain, nausea, vomiting, changes in bowel movements, rashes, swelling, or other concerns. Related Data Home Medications Medication Instructions Recorded Confirmed allopurinol 300 mg tablet 300 mg PO DAILY gout #90 tabs 12/22/18 07/02/22 levothyroxine 100 mcg tablet 100 mcg PO DAILY thyroid #90 tabs 12/22/18 07/02/22 warfarin 3 mg tablet 3 mg PO DAILY AFIB 12/29/20 07/02/22 bisoprolol fumarate 10 mg tablet 10 mg PO DAILY Hypertension 05/15/22 07/02/22 cyanocobalamin (vitamin B-12) 1,000 mcg PO DAILY Supplement 05/15/22 07/02/22 1,000 mcg tablet pravastatin 40 mg tablet 40 mg PO HS Cholesterol 05/15/22 07/02/22 sacubitril 97 mg-valsartan 103 mg 1 tab PO BID CHF 05/15/22 07/02/22 tablet (Entre
[2022-07-29 09:35] LABS: Lymphocytes % 11 % (10-50); Monocytes % 5 % (2-9); Neutrophils % 84 % (42-76); Total Cells Counted 100
[2022-07-29 09:36] LABS: Macrocytosis 1+; Platelet Estimate Normal
[2022-07-29 10:06] LABS: Coronavirus 19, PCR Not Detected (NotDetected); Influenza A, PCR Not Detected (NotDetected); Influenza B, PCR Not Detected (NotDetected)
[2022-07-29 10:25] LABS: Lactic Acid 1.2 mmol/L (0.7-2.1)
[2022-07-29 12:40] LABS: Troponin I < 0.01 ng/ml (0.00-0.034)
[2022-07-29 12:59] LABS: Microscopic, Urine URINE MICROSCOPIC (MICROSCOPIC)
[2022-07-29 13:03] LABS: Appearance,Urine CLEAR (Clear); Bilirubin,Urine Negative (Negative); Blood, Urine TRACE-I (Negative); Color,Urine YELLOW (Yellow); Glucose,Urine (UA) Negative (Negative); Ketones,Urine Negative (Negative); Leukocyte Esterase,Urine Negative (Negative); Nitrate,Urine Negative (Negative); Protein,Urine 1+ (Negative)
[2022-07-29 13:19] LABS: WBC,Urine Occasional #/hpf (0-3)
[2022-07-29 13:20] LABS: Bacteria,Urine Trace /lpf; Squamous Epithelial Cell,Urine Occasional #/hpf (0-5)
[2022-07-29 13:49] LABS: INR 3.61 (0.9-1.1); Prothrombin Time 36.3 seconds (10.1-12.5)
== END 2022-07-29 13:20 | disposition home or self-care (01) ==
PROVIDERS: Emergency Provider Emergency Medicine; PCP Internal Medicine
DX: J44.1 Chronic obstructive pulmonary disease with (acute) exacerbation (principal); I50.9 Heart failure, unspecified; Z95.810 Presence of automatic (implantable) cardiac defibrillator; I11.0 Hypertensive heart disease with heart failure; E03.9 Hypothyroidism, unspecified; E83.42 Hypomagnesemia; I48.91 Unspecified atrial fibrillation; I48.92 Unspecified atrial flutter; Z82.3 Family history of stroke; Z20.822 Contact with and (suspected) exposure to COVID-19
CPT/HCPCS: 36415; 71046; 80053; 81001; 82803; 83605; 83735; 83880; 84484; 85007; 85025; 85610; 86140; 87040; 93005; 96372; 96374; 99285; C9803; J0696; U0003; U0005

== ENCOUNTER → 2022-08-01 14:31 | Outpatient (CLI) | payer MEDICARE, MEDICAID, SELFPAY | PROVIDERS: PCP Internal Medicine; Visit Provider Internal Medicine | DX: Z79.01 Long term (current) use of anticoagulants (principal) | CPT/HCPCS: 85610 ==

== ENCOUNTER 2022-08-01 15:49 | Outpatient (CLI) | payer MEDICARE, MEDICAID, SELFPAY ==
[2022-08-01 16:04] VITALS: BP 175/83; PULSE 87; RESP 18; O2SAT 100
== END 2022-08-01 16:11 | disposition home or self-care (01) ==
LOC: INF 15:50
PROVIDERS: PCP Internal Medicine; Visit Provider Internal Medicine
DX: Z51.81 Encounter for therapeutic drug level monitoring (principal); Z79.01 Long term (current) use of anticoagulants; D68.9 Coagulation defect, unspecified
CPT/HCPCS: 85610; 96372

== ENCOUNTER → 2022-08-04 14:31 | Outpatient (CLI) | payer MEDICARE, MEDICAID, SELFPAY ==
[2022-08-04 15:53] LABS: INR 1.27 (0.9-1.1); Prothrombin Time 13.5 seconds (10.1-12.5)
== END ==
PROVIDERS: PCP Internal Medicine; Visit Provider Internal Medicine
DX: Z51.81 Encounter for therapeutic drug level monitoring (principal); Z79.01 Long term (current) use of anticoagulants
CPT/HCPCS: 85610

== ENCOUNTER → 2022-08-08 13:58 | Outpatient (CLI) | payer MEDICARE, MEDICAID, SELFPAY ==
[2022-08-08 14:21] LABS: INR 2.43 (0.9-1.1)
== END ==
PROVIDERS: PCP Internal Medicine; Visit Provider Internal Medicine
DX: Z51.81 Encounter for therapeutic drug level monitoring (principal); Z79.01 Long term (current) use of anticoagulants
CPT/HCPCS: 85610

== ENCOUNTER → 2022-08-15 14:38 | Outpatient (CLI) | payer MEDICARE, MEDICAID, SELFPAY ==
[2022-08-15 15:11] LABS: INR 3.67 (0.9-1.1); Prothrombin Time 36.8 seconds (10.1-12.5)
== END ==
PROVIDERS: PCP Internal Medicine; Visit Provider Internal Medicine
DX: Z51.81 Encounter for therapeutic drug level monitoring (principal); Z79.01 Long term (current) use of anticoagulants; I48.91 Unspecified atrial fibrillation
CPT/HCPCS: 85610

== ENCOUNTER → 2022-08-22 14:18 | Outpatient (CLI) | payer MEDICARE, MEDICAID, SELFPAY ==
[2022-08-22 14:41] LABS: INR 1.82 (0.9-1.1)
== END ==
PROVIDERS: PCP Internal Medicine; Visit Provider Internal Medicine
DX: Z51.81 Encounter for therapeutic drug level monitoring (principal); Z79.01 Long term (current) use of anticoagulants; I48.92 Unspecified atrial flutter
CPT/HCPCS: 85610

== ENCOUNTER → 2022-09-05 15:22 | Outpatient (CLI) | payer MEDICARE, MEDICAID, SELFPAY ==
[2022-09-05 15:56] LABS: INR 1.66 (0.9-1.1); Prothrombin Time 17.4 seconds (10.1-12.5)
== END ==
PROVIDERS: PCP Internal Medicine; Visit Provider Internal Medicine
DX: Z51.81 Encounter for therapeutic drug level monitoring (principal); Z79.01 Long term (current) use of anticoagulants
CPT/HCPCS: 85610

== ENCOUNTER → 2022-09-19 12:13 | Outpatient (CLI) | payer MEDICARE, MEDICAID, SELFPAY ==
[2022-09-19 13:14] LABS: INR 1.78 (0.9-1.1); Prothrombin Time 18.6 seconds (10.1-12.5)
== END ==
LOC: LAB.DROPOF 12:14
PROVIDERS: PCP Internal Medicine; Visit Provider Internal Medicine
DX: Z51.81 Encounter for therapeutic drug level monitoring (principal); Z79.01 Long term (current) use of anticoagulants; T45.511A Poisoning by anticoagulants, accidental (unintentional), initial encounter
CPT/HCPCS: 85610

== ENCOUNTER 2022-09-29 07:40 | Emergency (ER) | payer MEDICARE, MEDICAID, SELFPAY ==
[2022-09-29] VITALS (7 sets, daily range): BP systolic 122–184; BP diastolic 71–107; PULSE 63–80; RESP 13–19; TEMP 36.7–36.8; O2SAT 95–99; BMI 26.6
--- NOTE | 2022-09-29 07:39 | ECG_ITS ---
APPROVED REPORT Exam: Resting ECG HR:86 bpm ECG Measurements Heart Rate 86 AXES [place] 166 P 92 QRSd 172 QRS 247 QT 434 T 74 QTc 477 Conclusion ELECTRONIC VENTRICULAR PACEMAKER ABNORMAL RHYTHM ECG UNCONFIRMED REPORT Electronically signed by : Eamon Valdez MD 09/29/2022 17:36:09
--- NOTE | 2022-09-29 07:44 | XR_ITS ---
FINAL REPORT TECHNIQUE: Single view chest CLINICAL HISTORY: Midsternal CHEST PAIN COMPARISON: 07/29/2022 FINDINGS: A single view of the chest was obtained. The heart is mildly enlarged. A left-sided pacemaker is in place. The lungs are clear. There is no pneumothorax. Osseous structures are unremarkable. IMPRESSION: No acute cardiopulmonary process. Reviewed, Interpreted and Dictated by Marcos Hannon MD Transcribed by Sybil Burt Authenticated and . [facility]
--- NOTE | 2022-09-29 08:03 | PC.NURSE ---
DR FERNANDEZ AT BEDSIDE
--- NOTE | 2022-09-29 08:07 | PC.NURSE ---
XR AT BEDSIDE
[2022-09-29 08:21] LABS: Alanine Aminotransferase 29 U/L (12-78); Albumin Level 4.5 g/dl (3.5-5.0); Albumin/Globulin Ratio 1.7 (1.1-1.8); Alkaline Phosphatase 129 U/L (38-126); Anion Gap 8.5 mEq/L (5-15); Aspartate Amino Transferase 36 U/L (17-59); Bilirubin,Total 0.6 mg/dl (0.2-1.3); Blood Urea Nitrogen 21 mg/dl (9-20); Calcium 8.7 mg/dl (8.4-10.2); Carbon Dioxide 31 mmol/L (22.0-30.0); Chloride 103 mmol/L (98-107); Creatinine Clearance Estimated 67 mL/min (50-200); Estimated Glomerular Filt Rate 81 ml/min (>60); GFR (African American) 98 ML/MIN (>60); Globulin 2.7 g/dL (1.3-3.2); Glucose 103 mg/dl (74-100); Potassium 3.5 mmoL/L (3.5-5.1); Sodium 139 mmol/L (136-145); Total Protein,Serum 7.2 g/dl (6.3-8.2)
[2022-09-29 08:28] LABS: INR 2.02 (0.9-1.1)
[2022-09-29 08:32] LABS: Basophils # 0.1 K/mm3 (0-0.2); Basophils % 0.7 % (0.1-2.0); Eosinophils # 0.1 K/mm3 (0.0-0.4); Hematocrit 49.7 % (42.0-52.0); Hemoglobin 15.9 g/dL (14.1-18.0); Lymphocytes # 2.6 K/mm3 (0.7-4.5); Lymphocytes % 30.2 % (10-50); Mean Corpuscular HGB Conc 31.9 g/dL (31.8-35.4); Mean Corpuscular Hemoglobin 32.5 pg (27.0-31.2); Mean Corpuscular Volume 101.9 fl (80-94); Mean Platelet Volume 8.6 fl (7.4-10.4); Monocytes # 0.5 K/mm3 (0.1-1.0); Monocytes % 6.4 % (1.7-9.3); Neutrophils # 5.2 K/mm3 (1.8-7.8); Neutrophils % 61.6 % (37.0-80.0); Platelet Count 230 K/mm3 (142-424); Red Blood Count 4.88 M/mm3 (4.60-6.20); Red Cell Distribution Width 13.4 % (11.5-17.5); White Blood Count 8.5 K/mm3 (4.8-10.8)
[2022-09-29 08:34] LABS: Troponin I < 0.01 ng/ml (0.00-0.034)
--- NOTE | 2022-09-29 08:37 | PC.NURSE ---
ROUNDED ON PT, NO NEEDS AT THIS TIME. CALL LIGHT WITHIN REACH
--- NOTE | 2022-09-29 09:08 | PC.NURSE ---
UPDATED PT AT THIS TIME. CALL LIGHT WITHIN REACH. PT PROVIDED REMOTE FOR TV. NO NEEDS AT THIS TIME
--- NOTE | 2022-09-29 09:34 | PC.NURSE ---
rounded on patient, pt sitting up in ED stretcher watching tv. no needs at this time, call light within reach
--- NOTE | 2022-09-29 09:47 | PC.NURSE ---
contacted rad to check on status xray results, rad states will send preliminary results down to ER
--- NOTE | 2022-09-29 09:55 | HMH.EDGENADL ---
Discharge Plan Disposition Patient Disposition: Home, Self-Care Condition: Good Prescriptions Prescriptions: No Action allopurinol 300 mg tablet 300 mg PO DAILY Qty: 90 levothyroxine 100 mcg tablet 100 mcg PO DAILY Qty: 90 pravastatin 40 mg tablet 40 mg PO HS bisoprolol fumarate 10 mg tablet 10 mg PO DAILY Entresto 97-103 mg tablet 1 tab PO BID cyanocobalamin (vitamin B-12) 1,000 mcg tablet 1,000 mcg PO DAILY Label Comments: TAKE 1 TABLET BY MOUTH ONCE DAILY FOR 90 DAYS warfarin 3 MG tablet 3 mg PO DAILY doxycycline hyclate 100 mg capsule 100 mg PO BID amiodarone 200 mg tablet 400 mg PO BID prednisone 50 mg tablet 50 mg PO DAILY furosemide 20 mg tablet 20 mg PO DAILY Clinical Impressions Clinical Impression: Chest pain Instructions Patient Instructions: DI for Atypical Chest Pain Discharge ED Provider: Atilio Galarza General Adult HPI General Chief complaint: Chest Pain Stated complaint: chest pain Time Seen by Provider: 09/29/22 07:57 Mode of Arrival: Wheelchair Source of Information: Patient Limitations: No Limitations Description of Symptoms (Recalled from ER Triage Doc. by RN): PT REPORTS MID STERNAL CHEST PAIN THAT STARTED ABOUT MIDNIGHT, DOES NOT RADIATE, REPORTS PAIN IS SHARP. SHORTNESS OF BREATH THAT BEGAN THIS AM. History of Present Illness HPI narrative: 82yo M presents to the ER secondary to sharp midsternal chest pain that began at midnight. Does not radiate. Reports it was intermittent. Symptoms resolved prior to arrival. Denies ever having heart attack. Has a pacemaker in place. No shortness of breath, nausea, diaphoresis. Patient reports he follows with Dr. Reyes and has an appointment scheduled for tomorrow Related Data Home Medications Medication Instructions Recorded Confirmed allopurinol 300 mg tablet 300 mg PO DAILY gout #90 tabs 12/22/18 08/01/22 levothyroxine 100 mcg tablet 100 mcg PO DAILY thyroid #90 tabs 12/22/18 08/01/22 warfarin 3 mg tablet 3 mg PO DAILY AFIB 12/29/20 08/01/22 bisoprolol fumarate 10 mg tablet 10 mg PO DAILY Hypertension 05/15/22 08/01/22 cyanocobalamin (vitamin B-12) 1,000 mcg PO DAILY Supplement 05/15/22 08/01/22 1,000 mcg tablet pravastatin 40 mg tablet 40 mg PO HS Cholesterol 05/15/22 08/01/22 sacubitril 97 mg-valsartan 103 mg 1 tab PO BID CHF 05/15/22 08/01/22 tablet (Entresto) amiodarone 200 mg tablet 400 mg PO BID arrythmia 08/01/22 08/01/22 doxycycline hyclate 100 mg capsule 100 mg PO BID infection 08/01/22 08/01/22 furosemide 20 mg tablet 20 mg PO DAILY Hypertension 08/01/22 08/01/22 prednisone 50 mg tablet 50 mg PO DAILY Infection 08/01/22 08/01/22 Allergies Allergy/AdvReac Type Severity Reaction Status Date / Time No Known Allergies Allergy Verified 07/02/22 13:26 [facility] Disclaimer: The information contained in this section may have been updated after the patient was seen, as this information can be updated by other users. Medical History Atrial fibrillation Atrial flutter Chest pain Chronic systolic heart failure COPD (chronic obstructive pulmonary disease) Dyspnea HLD (hyperlipidemia) HTN (hypertension) 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) Palpitations Thoracic ascending aortic aneurysm Surgical History Automatic implantable cardioverter-defibrillator in situ Biventricular ICD (implantable cardioverter-defibrillator) in place Family History Other Family history of stroke Social History Smoking Status: Former smoker pack-years: 40 alcohol intake: current substance use type: denies use current occupational status: retired Travel in the last 8 weeks: Inside the [employer] household me
[2022-09-29 10:27] LABS: Troponin I < 0.01 ng/ml (0.00-0.034)
--- NOTE | 2022-09-29 10:35 | PC.NURSE ---
DR FERNANDEZ AT BEDSIDE TO UPDATE PT ON POC
== END 2022-09-29 10:45 | disposition home or self-care (01) ==
PROVIDERS: Emergency Provider Family Medicine; PCP Internal Medicine
DX: R07.89 Other chest pain (principal); R06.02 Shortness of breath
CPT/HCPCS: 71045; 80053; 84484; 85025; 85610; 93005; 99285

== ENCOUNTER → 2022-10-02 10:46 | Outpatient (CLI) | payer MEDICARE, MEDICAID, SELFPAY ==
--- NOTE | 2022-10-02 10:47 | CT_ITS ---
FINAL REPORT TECHNIQUE: Pre- and postcontrast images of the abdomen were performed by computed tomography. CLINICAL HISTORY: Renal mass COMPARISON: 06/04/2022 FINDINGS: The lung bases are clear. The liver is normal in size and attenuation. The spleen is unremarkable. The adrenals are normal. The pancreas is unremarkable. On precontrast imaging, there is a exophytic focus arising from from the superior pole of the right kidney with a may attenuation value of 24 Hounsfield units as well as a exophytic focus arising from the superior pole of the left kidney with a median 10 UA benavidez value of 37 Hounsfield units. On post-contrast imaging there is no significant contrast enhancement. There is a 2.2 x 1.5 cm focus arising from the posterior left kidney with a mean attenuation value of 29 Hounsfield units on precontrast imaging and 54 Hounsfield units on postcontrast imaging. The abdominal aorta measures up to 3.5 cm in diameter. IMPRESSION: 2.2 cm focus in the posterior left kidney with apparent contrast enhancement. Cystic renal neoplasm not excluded. Recommend urologic consult. Bilateral simple appearing renal cysts. Reviewed, Interpreted and Dictated by Marcos Hannon MD Transcribed by Sybil Burt Authenticated and [facility]
== END ==
PROVIDERS: PCP Internal Medicine; Visit Provider Physician Assistant
DX: N28.89 Other specified disorders of kidney and ureter (principal)
CPT/HCPCS: 74170; Q9967

== ENCOUNTER → 2022-10-03 12:51 | Outpatient (CLI) | payer MEDICARE, MEDICAID, SELFPAY ==
[2022-10-03 13:59] LABS: INR 1.83 (0.9-1.1); Prothrombin Time 19.1 seconds (10.1-12.5)
== END ==
PROVIDERS: PCP Internal Medicine; Visit Provider Internal Medicine
DX: Z51.81 Encounter for therapeutic drug level monitoring (principal); Z79.01 Long term (current) use of anticoagulants
CPT/HCPCS: 36415; 85610

== ENCOUNTER → 2022-10-17 16:43 | Outpatient (CLI) | payer MEDICARE, MEDICAID, SELFPAY ==
[2022-10-17 17:09] LABS: INR 1.76 (0.9-1.1); Prothrombin Time 18.4 seconds (10.1-12.5)
== END ==
PROVIDERS: PCP Internal Medicine; Visit Provider Internal Medicine
DX: Z51.81 Encounter for therapeutic drug level monitoring (principal); Z79.01 Long term (current) use of anticoagulants; I48.91 Unspecified atrial fibrillation
CPT/HCPCS: 85610

== ENCOUNTER → 2022-11-03 17:04 | Outpatient (CLI) | payer MEDICARE, MEDICAID, SELFPAY ==
[2022-11-03 17:36] LABS: INR 2.53 (0.9-1.1); Prothrombin Time 25.9 seconds (10.1-12.5)
[2022-11-03 17:40] LABS: Basophils % 0.6 % (0.1-2.0); Eosinophils # 0.1 K/mm3 (0.0-0.4); Eosinophils % 1.6 % (0.1-12.0); Hematocrit 46.1 % (42.0-52.0); Hemoglobin 15.2 g/dL (14.1-18.0); Lymphocytes # 2.1 K/mm3 (0.7-4.5); Lymphocytes % 28.6 % (10-50); Mean Corpuscular HGB Conc 32.9 g/dL (31.8-35.4); Mean Corpuscular Hemoglobin 32.6 pg (27.0-31.2); Mean Corpuscular Volume 99.1 fl (80-94); Mean Platelet Volume 9.1 fl (7.4-10.4); Monocytes # 0.5 K/mm3 (0.1-1.0); Monocytes % 6.6 % (1.7-9.3); Neutrophils # 4.7 K/mm3 (1.8-7.8); Neutrophils % 62.7 % (37.0-80.0); Platelet Count 192 K/mm3 (142-424); Red Blood Count 4.65 M/mm3 (4.60-6.20); Red Cell Distribution Width 13.2 % (11.5-17.5); White Blood Count 7.4 K/mm3 (4.8-10.8)
[2022-11-03 19:04] LABS: Alanine Aminotransferase 21 U/L (12-78); Albumin/Globulin Ratio 1.8 (1.1-1.8); Alkaline Phosphatase 110 U/L (38-126); Anion Gap 10.1 mEq/L (5-15); Aspartate Amino Transferase 27 U/L (17-59); Bilirubin,Total 0.4 mg/dl (0.2-1.3); Blood Urea Nitrogen 24 mg/dl (9-20); Calcium 8.7 mg/dl (8.4-10.2); Carbon Dioxide 30 mmol/L (22.0-30.0); Chloride 105 mmol/L (98-107); Chol/HDL Ratio 2.2 (1-3.5); Cholesterol 164 mg/dl (140-200); Estimated Glomerular Filt Rate 81 ml/min (>60); GFR (African American) 98 ML/MIN (>60); Globulin 2.2 g/dL (1.3-3.2); Glucose 91 mg/dl (74-100); HDL Cholesterol 74 mg/dl (40-60); Potassium 4.1 mmoL/L (3.5-5.1); Sodium 141 mmol/L (136-145); Total Protein,Serum 6.2 g/dl (6.3-8.2); Triglycerides 138 mg/dl (30-150); Uric Acid 3.9 mg/dl (3.5-8.5); VLDL Cholesterol 28 mg/dL (0-40)
[2022-11-03 19:15] LABS: Direct LDL Cholesterol 64.98 mg/dL (100-129)
[2022-11-03 19:35] LABS: Thyroid Stimulating Hormone 1.08 uIU/mL (0.465-4.68)
== END ==
PROVIDERS: PCP Internal Medicine; Visit Provider Internal Medicine
DX: I50.22 Chronic systolic (congestive) heart failure (principal); I25.10 Atherosclerotic heart disease of native coronary artery without angina pectoris; I10 Essential (primary) hypertension; E03.9 Hypothyroidism, unspecified; E78.5 Hyperlipidemia, unspecified; M10.9 Gout, unspecified; Z79.01 Long term (current) use of anticoagulants
CPT/HCPCS: 80053; 80061; 84443; 84550; 85025; 85610

== ENCOUNTER → 2022-12-03 12:10 | Outpatient (CLI) | payer MEDICARE, MEDICAID, SELFPAY ==
[2022-12-03 13:31] LABS: INR 2.41 (0.9-1.1); Prothrombin Time 24.8 seconds (10.1-12.5)
== END ==
PROVIDERS: PCP Internal Medicine; Visit Provider Internal Medicine
DX: Z51.81 Encounter for therapeutic drug level monitoring (principal); Z79.01 Long term (current) use of anticoagulants
CPT/HCPCS: 85610

== ENCOUNTER → 2023-01-06 15:18 | Outpatient (CLI) | payer MEDICARE, MEDICAID, SELFPAY ==
[2023-01-06 16:02] LABS: INR 1.91 (0.9-1.1); Prothrombin Time 19.9 seconds (10.1-12.5)
== END ==
PROVIDERS: PCP Internal Medicine; Visit Provider Internal Medicine
DX: Z51.81 Encounter for therapeutic drug level monitoring (principal); Z79.01 Long term (current) use of anticoagulants; I48.91 Unspecified atrial fibrillation
CPT/HCPCS: 85610

== ENCOUNTER 2023-01-15 08:30 | Inpatient (IN) | payer MEDICARE, MEDICAID, SELFPAY ==
[2023-01-15] VITALS (29 sets, daily range): BP systolic 75–122; BP diastolic 43–83; PULSE 62–144; RESP 15–34; TEMP 36.5–37.4; O2SAT 94–99; BMI 32.1; BMI 27.1
--- NOTE | 2023-01-15 08:32 | ECG_ITS ---
APPROVED REPORT Exam: Resting ECG HR:155 bpm ECG Measurements Heart Rate 155 AXES QRSd 224 QRS -78 QT 392 T 105 QTc 479 Conclusion ATRIAL FIBRILLATION WITH RAPID VENTRICULAR RESPONSE LEFT AXIS DEVIATION [QRS AXIS < -30] LEFT BUNDLE BRANCH BLOCK [120+ ms QRS DURATION, 80+ ms Q/S IN V1/V2, 85+ ms R IN I/aVL/V5/V6] ST DEPRESSION, CONSIDER SUBENDOCARDIAL INJURY [0.1+ mV ST DEPRESSION] CRITICAL TEST RESULT UNCONFIRMED REPORT Electronically signed by : Eamon Valdez MD 01/15/2023 21:14:21
--- NOTE | 2023-01-15 08:34 | PC.NURSE ---
Dr. Alejandro consulted Dr. Reyes via phone.
--- NOTE | 2023-01-15 08:43 | XR_ITS ---
FINAL REPORT CLINICAL HISTORY: dyspnea FINDINGS: SINGLE VIEW CHEST The heart size is normal. There is a left subclavian ICD present. The mediastinum is normal. There are left lung base opacities which represent atelectasis or pneumonia. There is no pneumothorax. IMPRESSION: Left lung base opacities, atelectasis or pneumonia. Reviewed, Interpreted and Dictated by Isac Banegas III, MD Transcribed by Yesenia Olivera Authenticated and [facility]
--- NOTE | 2023-01-15 08:53 | PC.NURSE ---
called pharmacy for amiodarone drip
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
[2023-01-15 08:56] LABS: Basophils # 0.1 K/mm3 (0-0.2); Basophils % 0.2 % (0.1-2.0); Eosinophils % 0.2 % (0.1-12.0); Hematocrit 44.9 % (42.0-52.0); Hemoglobin 14.5 g/dL (14.1-18.0); Lymphocytes # 2.4 K/mm3 (0.7-4.5); Lymphocytes % 11.1 % (10-50); Mean Corpuscular HGB Conc 32.2 g/dL (31.8-35.4); Mean Corpuscular Hemoglobin 31.5 pg (27.0-31.2); Mean Corpuscular Volume 97.8 fl (80-94); Mean Platelet Volume 8.8 fl (7.4-10.4); Monocytes % 4.3 % (1.7-9.3); Neutrophils # 18.4 K/mm3 (1.8-7.8); Neutrophils % 84.1 % (37.0-80.0); Platelet Count 226 K/mm3 (142-424); Red Blood Count 4.59 M/mm3 (4.60-6.20); Red Cell Distribution Width 13.7 % (11.5-17.5); White Blood Count 21.9 K/mm3 (4.8-10.8)
[2023-01-15 08:57] LABS: Chloride 104 mmol/L (98-107); Potassium 3.4 mmoL/L (3.5-5.1); Sodium 138 mmol/L (136-145)
[2023-01-15 08:58] LABS: MANUAL DIFFERENTIAL MANUAL DIFFERENTIAL (MANUAL DIFF)
[2023-01-15 08:59] LABS: Alanine Aminotransferase 32 U/L (12-78); Aspartate Amino Transferase 35 U/L (17-59); Blood Urea Nitrogen 23 mg/dl (9-20); Estimated Glomerular Filt Rate 58 ml/min (>60); GFR (African American) 70 ML/MIN (>60)
[2023-01-15 09:00] LABS: Albumin Level 4.1 g/dl (3.5-5.0); Albumin/Globulin Ratio 1.6 (1.1-1.8); Alkaline Phosphatase 148 U/L (38-126); Anion Gap 16.4 mEq/L (5-15); Bilirubin,Total 1.5 mg/dl (0.2-1.3); Calcium 8.8 mg/dl (8.4-10.2); Carbon Dioxide 21 mmol/L (22.0-30.0); Globulin 2.5 g/dL (1.3-3.2); Glucose 163 mg/dl (74-100); Total Protein,Serum 6.6 g/dl (6.3-8.2)
--- NOTE | 2023-01-15 09:01 | PC.NURSE ---
Vale, Respiratory Therapist aware of ABG order
--- NOTE | 2023-01-15 09:01 | PC.NURSE ---
Covid swab sent to lab. pt reports no needs at this time.
[2023-01-15 09:06] LABS: Coronavirus 19, PCR Not Detected (NotDetected); Influenza A, PCR Not Detected (NotDetected); Influenza B, PCR Not Detected (NotDetected)
[2023-01-15 09:12] LABS: ABG Base Excess -6.2 mmol/L (-2.4-2.3); ABG HCO3 18.4 mmhg (22.0-26.0); ABG Oxygen Saturation 97 % (90-100); ABG PCO2 29.7 mmhg (35.0-45.0); ABG PH 7.41 mmol/L (7.35-7.45); ABG PO2 87.6 mmhg (80-100); ABG TCO2 19.3 mmhg (23-27)
[2023-01-15 09:13] LABS: Oxygen 3 LPM %
[2023-01-15 09:14] LABS: Source Right Brachial
[2023-01-15 09:19] LABS: Lactic Acid 2.7 mmol/L (0.7-2.1)
--- NOTE | 2023-01-15 09:19 | PC.NURSE ---
notified lab of added on order
[2023-01-15 09:22] LABS: Procalcitonin 0.157 ng/mL (0.0-2.0)
[2023-01-15 09:24] LABS: Lymphocytes % 12 % (10-50); Monocytes % 4 % (2-9); Neutrophils % 84 % (42-76); Total Cells Counted 100
[2023-01-15 09:26] LABS: Platelet Estimate Normal; RBC Morphology Normal
[2023-01-15 09:43] LABS: Troponin I < 0.01 ng/ml (0.00-0.034)
--- NOTE | 2023-01-15 09:45 | PC.NURSE ---
Dr. Alejandro speaking with Dr. Adams, Hospitalist
--- NOTE | 2023-01-15 09:54 | PC.NURSE ---
notified care management of admission
--- NOTE | 2023-01-15 10:18 | PC.NURSE ---
Dr. Reyes at
--- NOTE | 2023-01-15 10:23 | PC.NURSE ---
contacted rad to check on status of xray reports-rad states is in locked status
--- NOTE | 2023-01-15 10:37 | PC.NURSE ---
Report called to MAE Du
--- NOTE | 2023-01-15 10:49 | EXP.PHA.CONS ---
Pharmacy Consult Date: 01/15/23 Time: 10:49 Referring provider: DR. SWEET Reason for Consult:: VANCOMYCIN DOSING Allergies Allergy/AdvReac Type Severity Reaction Status Date / Time No Known Allergies Allergy Verified 01/15/23 09:55 Home Medications Medication Instructions Recorded Confirmed Type allopurinol 300 mg tablet 300 mg PO DAILY gout #90 tabs 12/22/18 01/15/23 History levothyroxine 100 mcg tablet 100 mcg PO DAILY thyroid #90 tabs 12/22/18 01/15/23 History warfarin 3 mg tablet 3 mg PO DAILY AFIB 12/29/20 01/15/23 History cyanocobalamin (vitamin B-12) 1,000 mcg PO DAILY Supplement 05/15/22 01/15/23 History 1,000 mcg tablet pravastatin 40 mg tablet 40 mg PO HS Cholesterol 05/15/22 01/15/23 History furosemide 20 mg tablet 20 mg PO DAILY Hypertension 08/01/22 01/15/23 History amiodarone 200 mg tablet 200 mg PO DAILY arrythmia #30 tabs 09/30/22 01/15/23 Rx sacubitril 97 mg-valsartan 103 mg 1 tab PO BID CHF #60 tabs 09/30/22 01/15/23 Rx tablet (Entresto) warfarin 2 mg tablet 2 mg PO DAILY afib 09/30/22 01/15/23 History bisoprolol fumarate 10 mg tablet 20 mg PO BID High Blood Pressure 01/15/23 01/15/23 History New Prescriptions to Start Prescriptions: Height: 1.75 m Weight: 98.883 kg Laboratory Results:: Laboratory Results - last 24 hr 01/15/23 08:34: WBC 21.9 H*, RBC 4.59 L, Hgb 14.5, Hct 44.9, MCV 97.8 H, MCH 31.5 H, MCHC 32.2, RDW 13.7, Plt Count 226, MPV 8.8, Neut % (Auto) 84.1 H, Lymph % (Auto) 11.1, Andrews % (Auto) 4.3, Eos % (Auto) 0.2, Baso % (Auto) 0.2, Neut # (Auto) 18.4 H, Lymph # (Auto) 2.4, Andrews # (Auto) 1.0, Eos # (Auto) 0.0, Baso # (Auto) 0.1, Total Counted 100, Neutrophils % (Manual) 84 H, Lymphocytes % (Manual) 12, Monocytes % (Manual) 4, Platelet Estimate Normal, RBC Morphology Normal, Sodium 138, Potassium 3.4 L, Chloride 104, Carbon Dioxide 21 L, Anion Gap 16.4 H, BUN 23 H, Creatinine 1.20, Estimated GFR 58 L, Est GFR ( Amer) 70, Glucose 163 H, Lactate 2.7 H, Calcium 8.8, Total Bilirubin 1.5 H, AST 35, ALT 32, Alkaline Phosphatase 148 H, Total Protein 6.6, Albumin 4.1, Globulin 2.5, Albumin/Globulin Ratio 1.6, Procalcitonin 0.157 01/15/23 08:38: Troponin I < 0.01 01/15/23 08:43: Specimen Source Right brachial, O2 % 3 lpm, ABG pH 7.41, ABG pCO2 29.7 L, ABG pO2 87.6, ABG HCO3 18.4 L, ABG Total CO2 19.3 L, ABG O2 Saturation 97, ABG Base Excess -6.2 L, Steven Test N/a 01/15/23 09:02: SARS-CoV-2 (PCR) Not detected, Influenza A Untype (PCR) Not detected, Influenza Type B (PCR) Not detected Medical History: Medical History (Updated 10/21/22 @ 14:36 by Katie Sanders RN) Atrial fibrillation Atrial flutter Chest pain Chronic systolic heart failure COPD (chronic obstructive pulmonary disease) Dyspnea HLD (hyperlipidemia) HTN (hypertension) 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) Palpitations Renal mass Thoracic ascending aortic aneurysm Assessment and Plan Assessment and plan all Dx Assessment and Plan for all problems:: Pharmacokinetic dosing service Objective: Patient: Floor: Age: 82 yo Serum creatinine: 1.20 mg/dL Height: 69.0 Inches Weight (kg): 98.9 Assessment: IBW (kg): 70.70 Dosing wt(kg): 98.9 Estimated Creatinine clearance (ml/min): 46.6 CRCL method: Cockcroft and Gault using ibw(default). Drug selected: Vancomycin Loading dose (mg): Vd (liters): 74.2 (factor used: 0.75 L/kg) Pastor (hr-1): 0.043 Half life (hrs): 16.12 CLvanco=?? 3.191 L/hr Recommended dose: 1750 mg Interval: 24 hrs Infusion time (hrs): 2.0 Predicted peak (mcg/mL): 35.1 Predicted trough (mcg/mL): 13.63 Total body weight is being used for vancomycin dosing. Recommendations: Give Vancomycin 1750 mg q 24 hrs with an expected Cpeak of 35.1 mcg/ml and an expected Ctrough
--- NOTE | 2023-01-15 10:52 | PC.NURSE ---
Rounded on patient; no needs at this time. Call light within reach, patient aware that we are just waiting for him to be transferred to 2nd floor.
--- NOTE | 2023-01-15 11:16 | EXP.HP ---
History of Present Illness *Admission Date: 01/15/23 *Reason for visit:: Shortness of breath *History of present illness: Mr. Hudson is an 82yo M presenting to the ER with complaint of shortness of breath for 3 to 4 days and increased production of cough. Complains of some increased chest pressure today. No pain referring to his neck or arms. Also notes that he has had a fever, cough, just not feeling well. On arrival to the ER found to be hypotensive with blood pressure 70/50. EKG obtained showing concern for V. tach versus A-fib with aberrancy. He was started on Levophed and amiodarone drips with improvement. With improvement in blood pressure, patient sitting up and joking with ER doc. He has a known history of cardiomyopathy with previous placement of BiV AICD. Last ejection fraction 20 to 30%. Denies any loss of consciousness. ER consulted medicine and cardiology for further management and admission. After arriving to the floor, patient sitting at bedside. Blood pressure improving. On 4 mcg of norepinephrine. Amiodarone load currently running. Concern initially for septic shock, was started on vancomycin, cefepime, Flagyl. Source possibly pneumonia. [facility] Disclaimer: The information contained in this section may have been updated after the patient was seen, as this information can be updated by other users. Medical History (Updated 01/15/23 @ 15:12 by José Miguel Adams MD) AAA (abdominal aortic aneurysm) Atrial fibrillation Atrial fibrillation with RVR Atrial flutter Chest pain Chest pain Chronic systolic heart failure COPD (chronic obstructive pulmonary disease) Dyspnea HLD (hyperlipidemia) HTN (hypertension) 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) Palpitations Renal mass Sepsis Thoracic ascending aortic aneurysm Surgical History Automatic implantable cardioverter-defibrillator in situ Biventricular ICD (implantable cardioverter-defibrillator) in place Family History Family history of stroke Social History (Updated 01/15/23 @ 12:12 by Emilia Alejandro, RN) Smoking Status: Former smoker pack-years: 40 alcohol intake: current substance use type: denies use current occupational status: retired Travel in the last 8 weeks: None household members: none housing: house caffeine: Yes (coffee) Meds Home Medications and Allergies Home Medications Medication Instructions Recorded Confirmed Type allopurinol 300 mg tablet 300 mg PO DAILY gout #90 tabs 12/22/18 01/15/23 History levothyroxine 100 mcg tablet 100 mcg PO DAILY hypothyroidism 12/22/18 01/15/23 History #90 tabs warfarin 3 mg tablet 3 mg PO DIRECTED atrial 12/29/20 01/15/23 History fib/blood thinner cyanocobalamin (vitamin B-12) 1,000 mcg PO DAILY Supplement 05/15/22 01/15/23 History 1,000 mcg tablet pravastatin 40 mg tablet 40 mg PO HS Cholesterol 05/15/22 01/15/23 History amiodarone 200 mg tablet 200 mg PO DAILY arrythmia #30 tabs 09/30/22 01/15/23 Rx sacubitril 97 mg-valsartan 103 mg 1 tab PO BID CHF #60 tabs 09/30/22 01/15/23 Rx tablet (Entresto) bisoprolol fumarate 10 mg tablet 10 mg PO BID High Blood Pressure 01/15/23 01/15/23 History tamsulosin 0.4 mg capsule 0.4 mg PO HS prostate 01/15/23 01/15/23 History New Prescriptions to Start Prescriptions: Allergies Allergy/AdvReac Type Severity Reaction Status Date / Time No Known Allergies Allergy Verified 01/15/23 09:55 Exam Data for Last 24 hours Vital signs and Labs for Last 24 Hours: Temp Pulse Resp BP Pulse Ox 98.2 F 103 H 21 116/74 96 01/15/23 10:38 01/15/23 10:40 01/15/23 10:40 01/15/23 10:40 01/15/23 10:40 Laboratory Results - last 24 hr 01/15/23 08:34: WBC 21.9 H*, RBC 4.59 L, Hgb 14.5, Hct 44.9, MCV 97.8 H, MCH 31.5 H, MCHC 32.2, RDW 13.7, Plt Count 226, MPV 8.8, Neut % (Auto)
--- NOTE | 2023-01-15 11:19 | PC.NURSE ---
pt admitted to 219 from ER via stretcher, levophed drip on at 4mcg/min and amio at 33.3mL/hr; pt had to use bathroom, instructed pt to pull cord on wall when complete and this RN will take him back to bed from the bathroom as this RN does not want him to fall pt verbalized understanding
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
--- NOTE | 2023-01-15 12:04 | EXP.SEPSISRE ---
[facility] Tissue Perfusion Eval Sepsis Re-Evaluation Performed: Yes Date Performed: 01/15/23 Time Performed: 12:04
[2023-01-15 12:19] LABS: Troponin I < 0.01 ng/ml (0.00-0.034)
[2023-01-15 12:50] LABS: Reflex Lactic Add Lactic Reflex
--- NOTE | 2023-01-15 13:00 | HMH.PHAINT1 ---
Pharmacy Intervention Comments: home medication list verified using list from outpatient pharmacy and pt interview
--- NOTE | 2023-01-15 14:21 | PC.NURSE ---
1310-bp 102/60, decreased levophed to 2mcg/min 1320-bp 111/63, held levophed drip at this time
[2023-01-15 15:04] LABS: Lactic Acid Follow Up (RFLX 1) 1.8 mmol/L (0.7-2.1)
[2023-01-15 15:16] LABS: Troponin I 0.02 ng/ml (0.00-0.034)
--- NOTE | 2023-01-15 16:11 | PC.NURSE ---
decreased amiodarone drip to 0.5mg/hr=16.7mL/hr as 6 hours of 1mg is complete
[2023-01-15 18:08] LABS: Microscopic, Urine URINE MICROSCOPIC (MICROSCOPIC)
[2023-01-15 18:09] LABS: Appearance,Urine CLEAR (Clear); Bilirubin,Urine Negative (Negative); Blood, Urine TRACE-I (Negative); Color,Urine YELLOW (Yellow); Glucose,Urine (UA) Negative (Negative); Ketones,Urine TRACE (Negative); Leukocyte Esterase,Urine Negative (Negative); Nitrate,Urine Negative (Negative); PH,Urine 5.5 (5.0-8.5); Protein,Urine 1+ (Negative); Urobilinogen,Urine 0.2 EU/dl (0.2)
[2023-01-15 18:18] LABS: RBC,Urine Occasional #/hpf (0-3); WBC,Urine Occasional #/hpf (0-3)
--- NOTE | 2023-01-15 19:21 | EXP.DC.SUM ---
General Admission date:: 01/15/23 Discharge date: 01/15/23 HPI HPI HPI: Mr. Hudson is an 82yo M presenting to the ER with complaint of shortness of breath for 3 to 4 days and increased production of cough. Complains of some increased chest pressure today. No pain referring to his neck or arms. Also notes that he has had a fever, cough, just not feeling well. On arrival to the ER found to be hypotensive with blood pressure 70/50. EKG obtained showing concern for V. tach versus A-fib with aberrancy. He was started on Levophed and amiodarone drips with improvement. With improvement in blood pressure, patient sitting up and joking with ER doc. He has a known history of cardiomyopathy with previous placement of BiV AICD. Last ejection fraction 20 to 30%. Denies any loss of consciousness. ER consulted medicine and cardiology for further management and admission. After arriving to the floor, patient sitting at bedside. Blood pressure improving. On 4 mcg of norepinephrine. Amiodarone load currently running. Concern initially for septic shock, was started on vancomycin, cefepime, Flagyl. Source possibly pneumonia. Hospital Course Hospital Course Hospital Course: Mr. Hudson is an 82-year-old male with significant cardiac history. Defibrillator in place. Presented with 3 to 4 days of productive cough and 1 day of increased shortness of breath. On arrival to the ER was found to be hypotensive. Concern for sepsis secondary to pneumonia. Complicated by concurrent A-fib with RVR. ER consulted medicine for admission. Cardiology has been consulted. Medicine agreed to admit for further management. Patient was initiated on norepinephrine and amiodarone drips in the ER. Weaned off norepinephrine within an hour of starting. Has been stable off norepinephrine since. Continue on amiodarone drip with improvement in heart rate and blood pressure. Excepted by [facility] for transfer and further management. Problems addressed as follows: Sepsis Pneumonia -Leukocytosis of 21,000, tachycardia, hypotension. Chest imaging positive for left lower lobe consolidation. Initiated on IV vancomycin, cefepime to continue 2 g every 8 hours IV and Flagyl 500 mg IV every 8 hours. Blood cultures obtained. Sputum culture ordered but not obtained as of yet. Initiated on norepinephrine however blood pressure improved. Maps have remained above 65 since stopping norepinephrine. Has been off of it for at least 5 hours. With MAP consistently greater than 65. Stable on 1 L oxygen at this time with saturations greater 90%. A-fib with RVR Cardiomyopathy, EF 25% -Cardiology consulted while patient in the ER. Patient initiated on amiodarone drip. Discussed case with cardiology, given his cardiomyopathy, recurrent A-fib with RVR, recommend transfer for AV node ablation. They have discussed his case with Dr. Aguilera at [facility]. Patient was graciously excepted for transfer. Heart rate improved with amiodarone drip. Has remained hemodynamically stable since initiating. Currently has BiV AICD in place. Cardiology interrogated his device, did not show signs of inappropriate defibrillation/shocking. In the setting of hypotension, holding his bisoprolol and Entresto. On warfarin for chronic anticoagulation. INR not back by time of transfer. Hypothyroidism: Continue home levothyroxine 100 mcg daily. TSH obtained but pending at time of discharge. Review of chart shows previous levels well controlled as recently as October. BPH: Continue tamsulosin nightly for BPH 0.4 mg Continue allopurinol 300 mg daily for gout Stable for transfer to [facility] for further management. Appreciate their assistance in care. Exam Data for Last 24 hours Vital signs and Labs for Last 24 Hours: Temp Pulse Resp BP Pulse Ox O2 Del Method O2 Flow Rate 97.7 F 67 24 93/54 L 96 Nasal Cannula 1 01/15/23 16:00 01/15/23 18:00 01/15/23 18:00 01/15/23 18:00
--- NOTE | 2023-01-15 20:47 | PC.NURSE ---
@2039 THIS RN CALLED REPORT TO MAE KUMAR AT [facility] IN [place], [place] ALL QUESTIONS ANSWERED, EMS WILL BE CALLED BY ANIMAL CONTROL SPECIALIST AT THIS TIME
--- NOTE | 2023-01-15 23:33 | PC.NURSE ---
Pt off the floor with [facility] ambulance via stretcher to [facility] at this time
== END 2023-01-15 23:33 | disposition short-term general hospital (02) | DRG 871 ==
LOC: ER 09:21 → 2ND 10:16
PROVIDERS: Admitting Provider Internal Medicine Adolescent Medicine; Emergency Provider Student in an Organized Health Care Education/Training Program; PCP Internal Medicine; Visit Provider Internal Medicine Adolescent Medicine
DX: A41.9 Sepsis, unspecified organism (principal); J18.9 Pneumonia, unspecified organism; R65.21 Severe sepsis with septic shock; I42.9 Cardiomyopathy, unspecified; I50.22 Chronic systolic (congestive) heart failure; I11.0 Hypertensive heart disease with heart failure; E78.5 Hyperlipidemia, unspecified; Z95.810 Presence of automatic (implantable) cardiac defibrillator; J44.9 Chronic obstructive pulmonary disease, unspecified; Z87.891 Personal history of nicotine dependence; I71.21 Aneurysm of the ascending aorta, without rupture
CPT/HCPCS: 71045; 80053; 81001; 82803; 83605; 84145; 84484; 85007; 85025; 87040; 87636; 93005; 99291; J0282; J7060

== ENCOUNTER → 2023-06-18 13:33 | Outpatient (CLI) | payer MEDICARE, SELFPAY ==
--- NOTE | 2023-06-18 14:10 | CT_ITS ---
FINAL REPORT TECHNIQUE: Then section axial CT images of the chest were obtained with contrast. Three-D reformatted images were also obtained.This study was performed with techniques to keep radiation doses as low as reasonably achievable (ALARA). Individualized dose reduction techniques using automated exposure control or adjustment of mA and/or kV according to the patient''s size were employed. CLINICAL HISTORY: Follow up on Thoracic Aorta Aneurysm COMPARISON: 06/04/2022 FINDINGS: There is no evidence of pulmonary embolism. The 5.1 cm ascending aortic aneurysm is once again identified, and is stable. Cardiomegaly is again noted. Moderate changes of emphysema are once again identified as well as mild scarring. The posterior right upper lobe ground glass appearing nodule, 8 mm in size, is also stable. There is a smaller adjacent ground glass nodular opacity, also stable. There is a soft tissue nodular opacity in the medial right lower lobe, that is larger than seen on the prior CT, and on today's exam measures 19 mm as opposed to 11 mm in May 2022. Several scattered granulomas are identified. There is no evidence of mediastinal or hilar mass or adenopathy. There is no evidence of pulmonary mass or suspicious nodule. The multiple bilateral renal masses noted on the prior exam, likely cysts or complex cysts, remained stable. Limited images of the upper abdomen are unremarkable. IMPRESSION: 5.1 cm ascending aortic aneurysm, stable since the prior CT of May 2022. There is a nodular opacity in the medial right lower lobe, which has enlarged since the prior CT. On today's exam it measures 19 mm, and was 11 mm on the prior exam. This most likely represents either inflammatory or neoplastic change. Would recommend PET/CT for further evaluation. Other nodular and ground glass appearing opacities in the lung khan are stable. Reviewed, Interpreted and Dictated by Isac Banegas III, MD Transcribed by Gladis Bess Authenticated and . [facility]
[2023-06-18 14:43] LABS: Blood Urea Nitrogen 23 mg/dl (9-20); Estimated Glomerular Filt Rate 64 ml/min (>60); GFR (African American) 77 ML/MIN (>60)
== END ==
PROVIDERS: PCP Internal Medicine; Visit Provider Physician Assistant
DX: I71.20 Thoracic aortic aneurysm, without rupture, unspecified (principal)
CPT/HCPCS: 36415; 71275; 82565; 84520; Q9967

== ENCOUNTER 2023-07-06 12:24 | Emergency (ER) | payer MEDICARE, SELFPAY ==
[2023-07-06 12:24] VITALS: BP 146/97; PULSE 91; RESP 16; TEMP 36.7; O2SAT 97; BMI 25.8
--- NOTE | 2023-07-06 12:46 | ECG_ITS ---
APPROVED REPORT Exam: Resting ECG HR:83 bpm ECG Measurements Heart Rate 83 AXES MD 115 P 92 QRSd 169 QRS 232 QT 435 T 72 QTc 475 Conclusion ELECTRONIC VENTRICULAR PACEMAKER ABNORMAL RHYTHM ECG UNCONFIRMED REPORT Electronically signed by : Eamon Valdez MD 07/08/2023 09:04:32
[2023-07-06 12:49] VITALS: BMI 25.8
--- NOTE | 2023-07-06 12:51 | CT_ITS ---
PROCEDURE INFORMATION: Exam: CT Neck With Contrast Exam date and time: 07/06/2023 2:06 PM Age: 83 years old Clinical indication: Neck pain; Additional info: VEGA neck pain ear pain TECHNIQUE: Imaging protocol: Computed tomography of the neck with contrast. Radiation optimization: All CT scans at this facility use at least one of these dose optimization techniques: automated exposure control; mA and/or kV adjustment per patient size (includes targeted exams where dose is matched to clinical indication); or iterative reconstruction. Contrast material: ISOVUE; Contrast volume: 75 ml; Contrast route: IV; REPORTING DATA: Count of CT and Cardiac NM exams in prior 12 months: This patient has received 2 known CTs and 0 known cardiac nuclear medicine studies in the 12 months prior to the current study. COMPARISON: CT CERVICAL SPINE WO CON 07/06/2023 2:03 PM FINDINGS: Pharynx: Unremarkable. No significant tonsillar enlargement. Larynx: Unremarkable. Epiglottis is normal. Prevertebral and retropharyngeal spaces: Unremarkable. Salivary glands: Normal. Glands are normal in size. Thyroid: Normal. No enlarged or calcified nodules. Lymph nodes: Unremarkable. No lymphadenopathy. Trachea: Visualized trachea is unremarkable. Lungs: COPD with upper lobe emphysematous changes. Bones/joints: Multilevel degenerative changes throughout the mid-lower cervical spine resulting in multilevel foraminal stenosis as previously discussed. Vasculature: Calcification right carotid bifurcation resulting in some narrowing right ICA that does not appear severe. Soft tissues: Prominent venous collaterals within the left side of the neck and supraclavicular fossa likely secondary to chronic left subclavian vein stenosis. IMPRESSION: No acute abnormalities.
--- NOTE | 2023-07-06 12:51 | CT_ITS ---
PROCEDURE INFORMATION: Exam: CT Head Without Contrast Exam date and time: 07/06/2023 2:00 PM Age: 83 years old Clinical indication: Pain; Headache not specified; Additional info: VEGA ear pain neck pain TECHNIQUE: Imaging protocol: Computed tomography of the head without contrast. Radiation optimization: All CT scans at this facility use at least one of these dose optimization techniques: automated exposure control; mA and/or kV adjustment per patient size (includes targeted exams where dose is matched to clinical indication); or iterative reconstruction. REPORTING DATA: Count of CT and Cardiac NM exams in prior 12 months: This patient has received 2 known CTs and 0 known cardiac nuclear medicine studies in the 12 months prior to the current study. COMPARISON: No relevant prior studies available. FINDINGS: Brain: There is no evidence of intracranial hemorrhage. There are no areas of mass effect, edema or midline shift. There are diffuse indistinct areas of decreased attenuation involving the periventricular white matter likely secondary to chronic white matter microvascular changes. There is age-related cerebral volume loss responsible for prominence of the ventral subarachnoid spaces adjacent to the frontal and parietal lobes bilaterally. Cerebral ventricles: There is mild proportionate ventricular dilatation believed secondary to age related cerebral volume loss. Paranasal sinuses: Visualized sinuses are unremarkable. No fluid levels. Mastoid air cells: Visualized mastoid air cells are well aerated. Bones/joints: Unremarkable. No acute fracture. Soft tissues: Unremarkable. IMPRESSION: No acute intracranial abnormalities.
--- NOTE | 2023-07-06 12:51 | CT_ITS ---
PROCEDURE INFORMATION: Exam: CT Cervical Spine Without Contrast Exam date and time: 07/06/2023 2:03 PM Age: 83 years old Clinical indication: Neck pain; Additional info: VEGA neck pain ear pain TECHNIQUE: Imaging protocol: Computed tomography of the cervical spine without contrast. Radiation optimization: All CT scans at this facility use at least one of these dose optimization techniques: automated exposure control; mA and/or kV adjustment per patient size (includes targeted exams where dose is matched to clinical indication); or iterative reconstruction. REPORTING DATA: Count of CT and Cardiac NM exams in prior 12 months: This patient has received 2 known CTs and 0 known cardiac nuclear medicine studies in the 12 months prior to the current study. COMPARISON: CT HEAD/BRAIN WO CON 07/06/2023 2:00 PM FINDINGS: Bones/joints: Mild reversal of cervical lordosis likely longstanding, degenerative in nature. Mild degenerative spondylolisthesis C3-C4 otherwise alignment is maintained. Moderate degenerative changes mid-lower cervical spine with disc space narrowing, endplate sclerosis and osteophytic lipping. Accompanying degenerative facet arthrosis more pronounced right of midline.. Findings result in multilevel foraminal stenosis most pronounced C3-C4 on the right, C4-C5 on the left, C5-C6 and C6-C7 on the right with there is moderate-severe narrowing of the neural foramina. There is mild degenerative stenosis of the central canal lower cervical spine. No fracture or facet subluxation. Lungs: Lung apices are normal. Soft tissues: Unremarkable. IMPRESSION: 1. No acute bony abnormalities. 2. Diffuse degenerative changes resulting in multilevel acquired foraminal stenosis as discussed above.
--- NOTE | 2023-07-06 12:54 | HMH.EDGENADL ---
Discharge Plan Disposition Patient Disposition: Home, Self-Care Condition: Fair Prescriptions Prescriptions: New methocarbamol 500 mg tablet 500 mg PO Q12HP PRN (Reason: muscle spasm) Qty: 20 0RF lidocaine 5 % adhesive patch,medicated 1 patch topical DAILY Qty: 15 0RF Rx Instructions: leave on most painful area for up to 12 hrs. Remove after 12 hours and leave off for 12 hours before placing a new patch No Action bisoprolol fumarate 10 mg tablet 10 mg PO DAILY Qty: 90 3RF allopurinol 100 mg tablet 100 mg PO DAILY PreserVision AREDS 4,296 mcg-226 mg-90 mg capsule 1 cap PO DAILY levothyroxine 100 mcg tablet 100 mcg PO DAILY Qty: 90 Entresto 97-103 mg tablet 1 tab PO BID Qty: 60 5RF Eliquis 5 mg tablet 5 mg PO BID pravastatin 40 mg tablet 40 mg PO HS tamsulosin 0.4 mg Capsule 0.4 mg PO HS Referrals Follow up/Referrals: Johnnie Lincoln MD [Primary Care Provider] - See instructions Activity Restrictions/Add. Instructions Additional Instructions/Restrictions: You were evaluated in the ER and are appropriate for discharge at this time. I have prescribed a muscle relaxer and lidocaine patches. Use these as directed if needed. Continue taking home medications as prescribed. Call your primary care physician and make an appointment for reevaluation in 2 to 3 days. Return to the ER with any new, worsening, or otherwise concerning symptoms. Clinical Impressions Clinical Impression: Muscle spasm, Acute neck pain Headache Qualifiers: Headache type: unspecified Headache chronicity pattern: unspecified pattern Intractability: not intractable Qualified Code(s): R51.9 - Headache, unspecified Instructions Patient Instructions: DI for Acute Pain -- Adult Discharge ED Provider: Katina Padilla Adult HPI General Chief complaint: PAIN Stated complaint: head pain Time Seen by Provider: 07/06/23 12:42 Mode of Arrival: Wheelchair Source of Information: Patient Limitations: No Limitations Description of Symptoms (Recalled from ER Triage Doc. by RN): Patient complains of headache, neck pain, ear pain and shoulder pain since Thursday. History of Present Illness HPI narrative: This 83-year-old male presents to the ER with concerns of headache, neck pain, ear pain since Thursday (3 days). Patient states he has had episodes like this previously that have spontaneously resolved. He has a history of waxy ear buildup and has a prescription of hydrocodone for these pain episodes which he has been taking but it has not resolved his symptoms. Patient is not having any dizziness, nausea, or vomiting. He states he does not have any chest pain or shortness of breath. He says the sides of his neck are extremely painful. 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 He does not know of any other diagnoses associated with the pain in his ears and neck. Patient does heat his house with kerosene. He states he does not know of any correlation of that with his headache. He does not know of any issues with his kerosene heating system. Related Data Home Medications Medication Instructions Recorded Confirmed levothyroxine 100 mcg tablet 100 mcg PO DAILY hypothyroidism 12/22/18 06/24/23 #90 tabs pravastatin 40 mg tablet 40 mg PO HS Cholesterol 05/15/22 06/24/23 tamsulosin 0.4 mg capsule 0.4 mg PO HS prostate 01/15/23 06/24/23 apixaban 5 mg tablet (Eliquis) 5 mg PO BID 01/20/23 06/24/23 allopurinol 100 mg tablet 100 mg PO DAILY 03/09/23 06/24/23 vitamins A,C,J-rxei-bpybzc 4,296 1 cap PO DAILY 03/09/23 06/24/23 mcg-226 mg-90 mg capsule (PreserVision AREDS) Previous Rx's Medication Instructions Recorded sacubitril 97 mg-valsartan 103 mg 1 tab PO BID CHF #60 tabs 09/30/22 tablet (Entresto) bisoprolol fumarate 10 mg tablet 10 mg PO DAILY #90 tabs 02/23/23 lidocaine 5 % topical patch 1 patch topical DAILY #15 ea 07/06/23 methocarbamol 500 mg tablet 500
[2023-07-06 13:01] VITALS: BP 120/75; PULSE 74; RESP 20; O2SAT 98
[2023-07-06 13:10] LABS: Alanine Aminotransferase 22 U/L (12-78); Albumin Level 4.8 g/dl (3.5-5.0); Albumin/Globulin Ratio 1.4 (1.1-1.8); Alkaline Phosphatase 102 U/L (38-126); Anion Gap 9.6 mEq/L (5-15); Aspartate Amino Transferase 35 U/L (17-59); Bilirubin,Total 1.7 mg/dl (0.2-1.3); Blood Urea Nitrogen 17 mg/dl (9-20); Calcium 8.9 mg/dl (8.4-10.2); Carbon Dioxide 30 mmol/L (22.0-30.0); Chloride 96 mmol/L (98-107); Creatinine Clearance Estimated 64 mL/min (50-200); Estimated Glomerular Filt Rate 71 ml/min (>60); GFR (African American) 86 ML/MIN (>60); Globulin 3.5 g/dL (1.3-3.2); Glucose 112 mg/dl (74-100); Potassium 3.6 mmoL/L (3.5-5.1); Sodium 132 mmol/L (136-145); Total Protein,Serum 8.3 g/dl (6.3-8.2)
[2023-07-06 13:12] LABS: Basophils # 0.1 K/mm3 (0-0.2); Basophils % 0.4 % (0.1-2.0); Eosinophils % 0.2 % (0.1-12.0); Hematocrit 48.7 % (42.0-52.0); Hemoglobin 16.8 g/dL (14.1-18.0); Lymphocytes # 1.7 K/mm3 (0.7-4.5); Lymphocytes % 14.1 % (10-50); Mean Corpuscular HGB Conc 34.6 g/dL (31.8-35.4); Mean Corpuscular Hemoglobin 33.9 pg (27.0-31.2); Mean Corpuscular Volume 98.2 fl (80-94); Mean Platelet Volume 9.6 fl (7.4-10.4); Monocytes # 0.9 K/mm3 (0.1-1.0); Monocytes % 7.7 % (1.7-9.3); Neutrophils # 9.1 K/mm3 (1.8-7.8); Neutrophils % 77.6 % (37.0-80.0); Platelet Count 175 K/mm3 (142-424); Red Blood Count 4.96 M/mm3 (4.60-6.20); Red Cell Distribution Width 13.7 % (11.5-17.5); White Blood Count 11.7 K/mm3 (4.8-10.8)
[2023-07-06 13:30] VITALS: BP 141/84; PULSE 74; RESP 18; O2SAT 96
[2023-07-06 15:39] VITALS: BP 136/80; PULSE 74; RESP 17; TEMP 36.7; O2SAT 98
[2023-07-06 16:25] LABS: VBG Base Excess -1.4 mmol/L (-2.4-2.3); VBG HCO3 24.4 mmol/L (23-30); VBG PCO2 46.4 mmol/L (35-51); VBG PH 7.34 mmol/L (7.31-7.41); VBG PO2 25.5 mmol/L (28-40); VBG Total CO2 25.8 mmol/L (23-27)
== END 2023-07-06 15:42 | disposition home or self-care (01) ==
PROVIDERS: Emergency Provider Emergency Medicine; PCP Internal Medicine
DX: M54.2 Cervicalgia (principal); R51.9 Headache, unspecified; H92.09 Otalgia, unspecified ear; M25.519 Pain in unspecified shoulder; I71.40 Abdominal aortic aneurysm, without rupture, unspecified; I48.91 Unspecified atrial fibrillation; I11.0 Hypertensive heart disease with heart failure; I50.22 Chronic systolic (congestive) heart failure; E78.5 Hyperlipidemia, unspecified; Z95.0 Presence of cardiac pacemaker
CPT/HCPCS: 70450; 70491; 72125; 80053; 82803; 85025; 93005; 96374; 99285; Q9967

== ENCOUNTER 2023-07-08 08:21 | Emergency (ER) | payer MEDICARE, SELFPAY ==
[2023-07-08 08:22] VITALS: BP 151/93; PULSE 77; RESP 96; TEMP 36.7; O2SAT 96; BMI 27.2
[2023-07-08 08:28] VITALS: BP 151/93; PULSE 78; O2SAT 95
--- NOTE | 2023-07-08 08:35 | CT_ITS ---
FINAL REPORT TECHNIQUE: NASCET technique utilized for stenosis evaluation. CLINICAL HISTORY: b/l severe neck pain COMPARISON: 07/06/2023 FINDINGS: There is minimal spondylolisthesis of C3 on 4 There is advanced disc space narrowing at C4-5, C5-6, and C6-7. Bilateral facet hypertrophy is seen throughout. There is moderate bilateral neural foraminal narrowing at C4-5. There is high-grade right neural foraminal narrowing at C5-6 and C6-7. RIGHT CAROTID: There is mild vascular calcification of the proximal right internal carotid artery without significant stenosis. LEFT CAROTID: No significant stenosis seen of the cervical common or internal carotid artery. VERTEBRALS: The vertebrals are patent. No significant stenosis is present. IMPRESSION: Vascular calcification of the proximal right internal carotid artery without significant stenosis. 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 Reviewed, Interpreted and Dictated by Marcos Hannon MD Transcribed by Nancy Begum Authenticated and [facility]
--- NOTE | 2023-07-08 08:38 | ED_ITS ---
Discharge Plan Disposition Patient Disposition: Home, Self-Care Prescriptions Prescriptions: No Action bisoprolol fumarate 10 mg tablet 10 mg PO DAILY Qty: 90 3RF allopurinol 100 mg tablet 100 mg PO DAILY PreserVision AREDS 4,296 mcg-226 mg-90 mg capsule 1 cap PO DAILY levothyroxine 100 mcg tablet 100 mcg PO DAILY Qty: 90 Entresto 97-103 mg tablet 1 tab PO BID Qty: 60 5RF Eliquis 5 mg tablet 5 mg PO BID pravastatin 40 mg tablet 40 mg PO HS tamsulosin 0.4 mg Capsule 0.4 mg PO HS methocarbamol 500 mg tablet 500 mg PO Q12HP PRN (Reason: muscle spasm) Qty: 20 0RF lidocaine 5 % adhesive patch,medicated 1 patch topical DAILY Qty: 15 0RF Rx Instructions: leave on most painful area for up to 12 hrs. Remove after 12 hours and leave off for 12 hours before placing a new patch Referrals Follow up/Referrals: Johnnie Lincoln MD [Primary Care Provider] - See instructions Activity Restrictions/Add. Instructions Additional Instructions/Restrictions: At this time it was felt you are safe to be discharged home. If new or worsening symptoms please do not hesitate to return the emergency department. Please take your muscle relaxers as previously prescribed. Please follow-up with Dr. Londono on July 15 at 9 AM for pain management. Clinical Impressions Clinical Impression: Acute torticollis Discharge ED Provider: Arthur Estrella General Adult HPI General Chief complaint: PAIN Stated complaint: Neck pain Time Seen by Provider: 07/08/23 08:25 History of Present Illness HPI narrative: Patient is a 83-year-old male with past medical history of hypertension, COPD, thoracic ascending aortic aneurysm who presents emergency department for evaluation of neck pain. Onset was acute, occurring 3 days ago after patient slipped on his loveseat. Initially on the right however has progressed to bilateral neck pain. He was seen in the emergency department where workup was largely nonactionable including noncontrasted CT scan of the head, CT soft tissue neck and CT cervical spine. Cervical spine does have multiple degenerative changes without acute fracture with acquired multi level foraminal stenosis. Patient denies incontinence, lower extremity weakness. The pain is bilateral, sharp, extending from his bilateral neck down to the middle of the base of his neck. No chest pain. Pain is relieved with his home [place]. No other acute complaints at this time. Related Data Home Medications Medication Instructions Recorded Confirmed levothyroxine 100 mcg tablet 100 mcg PO DAILY hypothyroidism 12/22/18 06/24/23 #90 tabs pravastatin 40 mg tablet 40 mg PO HS Cholesterol 05/15/22 06/24/23 tamsulosin 0.4 mg capsule 0.4 mg PO HS prostate 01/15/23 06/24/23 apixaban 5 mg tablet (Eliquis) 5 mg PO BID 01/20/23 06/24/23 allopurinol 100 mg tablet 100 mg PO DAILY 03/09/23 06/24/23 vitamins A,C,Q-mutl-aqrqun 4,296 1 cap PO DAILY 03/09/23 06/24/23 mcg-226 mg-90 mg capsule (PreserVision AREDS) Previous Rx's Medication Instructions Recorded sacubitril 97 mg-valsartan 103 mg 1 tab PO BID CHF #60 tabs 09/30/22 tablet (Entresto) bisoprolol fumarate 10 mg tablet 10 mg PO DAILY #90 tabs 02/23/23 lidocaine 5 % topical patch 1 patch topical DAILY #15 ea 07/06/23 methocarbamol 500 mg tablet 500 mg PO Q12HP PRN muscle spasm 07/06/23 #20 tabs Allergies Allergy/AdvReac Type Severity Reaction Status Date / Time No Known Allergies Allergy Verified 06/24/23 10:25 [facility] Disclaimer: The information contained in this section may have been updated after the patient was seen, as this information can be updated by other users. 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) Palpitations Renal mass Sepsis Thoracic ascending aortic aneurysm Surgical History Automatic implantable cardioverter-defibrillator in situ Biventricular ICD (implantable cardioverter-defibrillator) in place Family History Other Family history of stroke Social History Smoking Status: Former smoker tobacco type: cigarettes packs per day: 1 alcohol intake: current substance use type: denies use current occupational status: retired Travel in the last 8 weeks: None household members: none housing: house caffeine: Yes (coffee) ROS Obtained: Yes Systems reviewed as appropriate & no additional complaints e xcept as documented Physical Exam General General appearance: alert and in no apparent distress Head Head exam: atraumatic and normocephalic Eye Eye exam: Present PERRL and EOMI ENT ENT exam: Present mucous membranes moist Neck Neck exam: Present normal inspection; Absent full ROM (Limited range of motion and all directions) Chest Chest inspection: Present normal inspection and symmetric chest wall rise Respiratory Respiratory exam: Present normal lung sounds bilaterally; Absent respiratory distress Cardiovascular Cardiovascular exam: Present regular rate and normal rhythm Abdominal Exam Abdominal exam: Present soft Extremities Exam Extremities exam: Present normal inspection Neurological Exam Neurological exam: Present alert; Absent CN II-XII intact or motor sensory deficit Psychiatric Psychiatric exam: Present normal affect Skin Skin exam: Present warm and dry Medical Decision Making Richar Inquiry Pt receiving controlled substance: No Vital Signs: 07/08/23 08:22 07/08/23 08:28 07/08/23 09:00 Temperature 98.0 F Temperature Source Oral Pulse Rate 78 64 Pulse Rate [Right] 77 Respiratory Rate 96 H Blood Pressure 151/93 H 156/95 H Blood Pressure [Left Arm] 151/93 H Blood Pressure Mean 110 Blood Pressure Mean [Left Arm] 112 Blood Pressure Source [Left Arm] Automatic Cuff 02 Sat by Pulse Oximetry 96 95 95 Oxygen Delivery Method Room Air Room Air Lab Data Lab Results 07/08/23 08:45: WBC 12.1 H, RBC 4.70, Hgb 16.0, Hct 47.3, MCV 100.6 H, MCH 34.1 H, MCHC 33.9, RDW 13.8, Plt Count 192, MPV 9.9, Neut % (Auto) 81.5 H, Lymph % (Auto) 11.6, [place] % (Auto) 6.1, Eos % (Auto) 0.5, Baso % (Auto) 0.3, Neut # (Auto) 9.9 H, Lymph # (Auto) 1.4, [place] # (Auto) 0.7, Eos # (Auto) 0.1, Baso # (Auto) 0.0, Sodium 132 L, Potassium 3.8, Chloride 98, Carbon Dioxide 28, Anion Gap 9.8, BUN 22 H D, Creatinine 1.00, Estimated Creat Clear 67, Estimated GFR 71, Est GFR ( Amer) 86, Glucose 124 H, Calcium 8.9, Total Bilirubin 1.4 H , AST 38, ALT 21, Alkaline Phosphatase 104, Total Protein 7.8, Albumin 4.5, Globulin 3.3 H, Albumin/Globulin Ratio 1.4 07/08/23 08:45 07/08/23 08:45 Orders (Tests/Meds): ED MEDICATIONS Discontinued Medications Generic Name Dose Route Start Last Admin Trade Name Arnoldoq PRN Reason Stop Dose Admin Acetaminophen 1,000 mg 07/08/23 08:36 07/08/23 08:56 Acetaminophen 1,000mg/100ml Vial IV 07/08/23 08:37 1,000 mg ONCE ONE Administration Diazepam 5 mg 07/08/23 08:36 07/08/23 08:57 Diazepam 5mg Tablet PO 07/08/23 08:37 5 mg ONCE ONE Administration Iopamidol 93 ml 07/08/23 09:19 07/08/23 09:21 Iopamidol-370 (76%);100ml Bottle IV 07/08/23 09:20 93 ml ONCE ONE Administration Lidocaine 1 each 07/08/23 08:36 07/08/23 08:56 Lidocaine 5% Transdermal Patch TP 07/08/23 08:37 1 each ONCE ONE Administration Sodium Chloride 40 ml 07/08/23 09:19 07/08/23 09:21 0.9 % Sodium Chloride 50 Ml Vial IV 07/08/23 09:20 40 ml ONCE ONE Administration ORDERS Category Date Time Status CT angio neck Stat Cat Scan 07/08/23 08:35 Completed CBC w/Auto Diff [Complete Blood Count Auto Diff] Stat Lab 07/08/23 08:45 Completed CMP [Comprehensive Metabolic Panel] Stat Lab 07/08/23 08:45 Completed Medical Decision Narrative: In summary patient is a 83-year-old male with past medical history described above who presents emergency department for evaluation of neck pain. Patient is hemodynamically stable nontoxic-appearing upon arrival, afebrile. Patient has a nonfocal neurologic exam. He is limited in his range of motion of his neck in all directions. No infectious symptoms or altered mental status to suggest meningitis. History and physical consistent with torticollis. CT imaging previously reviewed by me and is largely nonactionable, he does have degenerative stenosis which is noncritical given no extremity weakness, no incontinence. Otherwise differential includes spontaneous carotid dissection, among others. No concern for aortic dissection given no chest pain. Workup will be conducted with hematologic labs, CTA of the neck. Initial inventions include IV Tylenol, transdermal lidocaine patch, diazepam. Workup reviewed by me, hematologic labs are nonactionable, CTA shows no acute pathology. Upon repeat evaluation patient had acceptable resolution of symptoms. Given this patient will be referred to Dr. Londono for long-term pain management. Patient is appropriate for discharge at this time. Critical Care Critical Care Time Critical Care Time: No
[2023-07-08 08:54] LABS: Basophils % 0.3 % (0.1-2.0); Eosinophils # 0.1 K/mm3 (0.0-0.4); Eosinophils % 0.5 % (0.1-12.0); Hematocrit 47.3 % (42.0-52.0); Lymphocytes # 1.4 K/mm3 (0.7-4.5); Lymphocytes % 11.6 % (10-50); Mean Corpuscular HGB Conc 33.9 g/dL (31.8-35.4); Mean Corpuscular Hemoglobin 34.1 pg (27.0-31.2); Mean Corpuscular Volume 100.6 fl (80-94); Mean Platelet Volume 9.9 fl (7.4-10.4); Monocytes # 0.7 K/mm3 (0.1-1.0); Monocytes % 6.1 % (1.7-9.3); Neutrophils # 9.9 K/mm3 (1.8-7.8); Neutrophils % 81.5 % (37.0-80.0); Platelet Count 192 K/mm3 (142-424); Red Cell Distribution Width 13.8 % (11.5-17.5); White Blood Count 12.1 K/mm3 (4.8-10.8)
[2023-07-08] MEDS: LIDOCAINE 5% TRANSDERMAL PATCH 1 EACH TP (08:56)
[2023-07-08] MEDS: ACETAMINOPHEN 1,000MG/100ML VIAL 1000 MG IV (08:56)
[2023-07-08] MEDS: diazePAM 5MG TABLET 5 MG PO (08:57)
[2023-07-08 09:00] VITALS: BP 156/95; PULSE 64; O2SAT 95
--- NOTE | 2023-07-08 09:02 | PC.NURSE ---
Pt gone to RAD via wheelchair
[2023-07-08 09:03] LABS: Alanine Aminotransferase 21 U/L (12-78); Albumin Level 4.5 g/dl (3.5-5.0); Albumin/Globulin Ratio 1.4 (1.1-1.8); Alkaline Phosphatase 104 U/L (38-126); Anion Gap 9.8 mEq/L (5-15); Aspartate Amino Transferase 38 U/L (17-59); Bilirubin,Total 1.4 mg/dl (0.2-1.3); Blood Urea Nitrogen 22 mg/dl (9-20); Calcium 8.9 mg/dl (8.4-10.2); Carbon Dioxide 28 mmol/L (22.0-30.0); Chloride 98 mmol/L (98-107); Creatinine Clearance Estimated 67 mL/min (50-200); Estimated Glomerular Filt Rate 71 ml/min (>60); GFR (African American) 86 ML/MIN (>60); Globulin 3.3 g/dL (1.3-3.2); Glucose 124 mg/dl (74-100); Potassium 3.8 mmoL/L (3.5-5.1); Sodium 132 mmol/L (136-145); Total Protein,Serum 7.8 g/dl (6.3-8.2)
--- NOTE | 2023-07-08 09:18 | PC.NURSE ---
Pt returned from RAD
[2023-07-08] MEDS: 0.9 % SODIUM CHLORIDE 50 ML VIAL 40 ML IV (09:21)
[2023-07-08] MEDS: IOPAMIDOL-370 (76%);100ML BOTTLE 93 ML IV (09:21)
--- NOTE | 2023-07-08 10:07 | PC.NURSE ---
Called pain management for appt. Jul 15 9 am
[2023-07-08 10:20] VITALS: BP 156/90; PULSE 69; RESP 16; TEMP 36.7; O2SAT 99
== END 2023-07-08 10:21 | disposition home or self-care (01) ==
PROVIDERS: Emergency Provider Emergency Medicine; PCP Internal Medicine
DX: M43.6 Torticollis (principal); J44.9 Chronic obstructive pulmonary disease, unspecified; I71.21 Aneurysm of the ascending aorta, without rupture; I48.91 Unspecified atrial fibrillation; I11.0 Hypertensive heart disease with heart failure; I50.22 Chronic systolic (congestive) heart failure; I48.92 Unspecified atrial flutter; E78.5 Hyperlipidemia, unspecified; Z87.891 Personal history of nicotine dependence
CPT/HCPCS: 70498; 80053; 85025; 96374; 99284; J0131; Q9967

== ENCOUNTER 2023-10-27 09:37 | Outpatient (CLI) | payer MEDICARE, SELFPAY ==
[2023-10-27 10:04] LABS: Blood Urea Nitrogen 18 mg/dl (9-20); Estimated Glomerular Filt Rate 64 ml/min (>60); GFR (African American) 77 ML/MIN (>60)
== END 2023-10-27 23:59 ==
LOC: RAD 09:37
PROVIDERS: PCP Internal Medicine; Visit Provider Urology
DX: N28.89 Other specified disorders of kidney and ureter (principal)
CPT/HCPCS: 36415; 82565; 84520

== ENCOUNTER 2023-10-27 10:59 | Emergency (ER) | payer MEDICARE, SELFPAY ==
[2023-10-27] VITALS (11 sets, daily range): BP systolic 123–158; BP diastolic 77–99; PULSE 62–74; RESP 14–23; TEMP 36.5–36.7; O2SAT 94–100; BMI 24.3
--- NOTE | 2023-10-27 10:59 | ECG_ITS ---
APPROVED REPORT Exam: Resting ECG HR:75 bpm ECG Measurements Heart Rate 75 AXES [place] 112 P 91 QRSd 175 QRS 261 QT 467 T 89 QTc 495 Conclusion ELECTRONIC VENTRICULAR PACEMAKER sgarbossa negative Electronically signed by : MAYELA XAVIER, 10/27/2023 15:43:41
--- NOTE | 2023-10-27 11:03 | PC.NURSE ---
DR XAVIER AT BEDSIDE
--- NOTE | 2023-10-27 11:34 | ED_ITS ---
Discharge Plan Disposition Patient Disposition: Home, Self-Care Chief Complaint: Chest Pain Prescriptions Prescriptions: No Action bisoprolol fumarate 10 mg tablet 10 mg PO DAILY Qty: 90 3RF allopurinol 100 mg tablet 100 mg PO DAILY PreserVision AREDS 4,296 mcg-226 mg-90 mg capsule 1 cap PO DAILY levothyroxine 100 mcg tablet 100 mcg PO DAILY Qty: 90 Eliquis 5 mg tablet 5 mg PO BID pravastatin 40 mg tablet See Rx Instructions .ROUTE .COMPLEX Qty: 90 3RF Dose Instruction: TAKE 1 TABLET AT BEDTIME FOR CHOLESTEROL Rx Instructions: TAKE 1 TABLET AT BEDTIME FOR CHOLESTEROL Entresto 97-103 mg tablet See Rx Instructions .ROUTE .COMPLEX Qty: 180 3RF Dose Instruction: TAKE 1 TABLET TWICE DAILY Rx Instructions: TAKE 1 TABLET TWICE DAILY tamsulosin 0.4 mg Capsule 0.4 mg PO HS methocarbamol 500 mg tablet 500 mg PO Q12HP PRN (Reason: muscle spasm) Qty: 20 0RF lidocaine 5 % adhesive patch,medicated 1 patch topical DAILY Qty: 15 0RF Rx Instructions: leave on most painful area for up to 12 hrs. Remove after 12 hours and leave off for 12 hours before placing a new patch Referrals Follow up/Referrals: Johnnie Lincoln MD [Primary Care Provider] - See instructions Activity Restrictions/Add. Instructions Additional Instructions/Restrictions: [facility] contacted schedule an appointment outpatient. Be sure to follow-up with them regarding this visit to the emergency department and thoracic aneurysm. Call your family doctor to establish care for this visit to the emergency department and schedule follow-up within 48 hours to ensure improvement. If you have any worsening of your condition or any other concerning signs or symptoms, return to the emergency department or your primary care doctor for further evaluation. Clinical Impressions Clinical Impression: Shortness of breath, Aortic regurgitation Discharge ED Provider: Kulwant Love HPI General Chief Complaint: Chest Pain Stated Complaint: CHEST PAIN Time Seen by Provider: 10/27/23 11:01 History of Present Illness HPI narrative: 83-year-old male history of hypertension, hyperlipidemia, CHF, COPD not currently smoking or on home oxygen, hypothyroidism, A-fib secondary to ischemic cardiomyopathy currently on Eliquis with AICD in place presenting with chest pressure. Patient states started 2 days prior to this visit while he was at rest. Chest pressure is substernal, does not radiate, not associated specifically with exertion, rest, position, or any other obvious, notable changes. Has not taken anything for the pain. Has not been shocked by AICD. Denies diaphoresis, shortness of breath, nausea, vomiting, lower extremity swelling, or any other concerns. Please note that above description of symptoms, in this electronic medical record under categorization of recalled from ER triage doctor by RN are reflective of an initial nursing assessment, however, is not reflective of my full history and physical exam that was personally taken and clarified. Consequentially, this preceding description of symptoms, which may include the patient's categorized chief complaint in the EMR, do not reflect my personal clinical impression, and the ultimate description of history of present illness and patient stated complaints should be deferred to this section of the note. Unless stated otherwise or congruent with this section of the note, additional signs, symptoms, or incongruence should be interpreted as inaccurate with my clinical impression. Related Data Home Medications Medication Instructions Recorded Confirmed levothyroxine 100 mcg tablet 100 mcg PO DAILY hypothyroidism 12/22/18 06/24/23 #90 tabs tamsulosin 0.4 mg capsule 0.4 mg PO HS prostate 01/15/23 06/24/23 apixaban 5 mg tablet (Eliquis) 5 mg PO BID 01/20/23 06/24/23 allopurinol 100 mg tablet 100 mg PO DAILY 03/09/23 06/24/23 vitamins A,C,Z-ldoc-xyqczu 4,296 1 cap PO DAILY 03/09/23 06/24/23 mcg-226 mg-90 mg capsule (PreserVision AREDS) Previous Rx's Medication Instructions Recorded bisoprolol fumarate 10 mg tablet 10 mg PO DAILY #90 tabs 02/23/23 lidocaine 5 % topical patch 1 patch topical DAILY #15 ea 07/06/23 methocarbamol 500 mg tablet 500 mg PO Q12HP PRN muscle spasm 07/06/23 #20 tabs pravastatin 40 mg tablet See Rx Instructions .Route 07/20/23 .COMPLEX #90 tabs sacubitril 97 mg-valsartan 103 mg See Rx Instructions .Route 09/04/23 tablet (Entresto) .COMPLEX #180 tabs Allergies Allergy/AdvReac Type Severity Reaction Status Date / Time No Known Allergies Allergy Verified 06/24/23 10:25 [facility] Disclaimer: The information contained in this section may have been updated after the patient was seen, as this information can be updated by other users. 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) Palpitations Atrial flutter Thoracic ascending aortic aneurysm COPD (chronic obstructive pulmonary disease) Chest pain Atrial fibrillation Chronic systolic heart failure Dyspnea HLD (hyperlipidemia) HTN (hypertension) Surgical History Biventricular ICD (implantable cardioverter-defibrillator) in place Automatic implantable cardioverter-defibrillator in situ Family History Other Family history of stroke Social History Smoking Status: Former smoker tobacco type: cigarettes packs per day: 1 alcohol intake: current substance use type: denies use current occupational status: retired Travel in the last 8 weeks: None household members: none housing: house caffeine: Yes (coffee) ROS Obtained: Yes All systems reviewed & no additional complaints except as documented Physical Exam General General appearance: alert Neck Neck exam: Present trachea midline Chest Chest inspection: Present normal inspection and symmetric chest wall rise Respiratory Respiratory exam: Present normal lung sounds bilaterally; Absent respiratory distress, wheezes, stridor, accessory muscle use or prolonged expiratory phase Cardiovascular Cardiovascular exam: Present regular rate and normal rhythm Extremities Exam Extremities exam: Absent edema Neurological Exam Neurological exam: Present alert, oriented X3 and CN II-XII intact Skin Skin exam: Present warm and dry; Absent cyanosis, diaphoresis or pallor HEART Score HEART Score HEART Score assessment performed?: Yes History (anamnesis): Moderately suspicious ECG: Non-specific disturbance Age: >65 years Risk factors: 3 or more risk factors Troponin: </= normal limit HEART Score: 6 Procedures Limited Ultrasound Indication:: Limited cardiac ultrasound Indication: Shortness of breath Identified cardiac views: -Cardiac parasternal long axis -Cardiac parasternal short axis Findings: -Cardiac activity present -Gross wall motion normal -Pericardial effusion absent -Right heart strain absent -Moderate to severe arctic rotation Impression: -Moderate to severe aortic regurgitation, no regional wall motion abnormality, but grossly decreased ejection fraction Images were saved to permanent archive The study was technically adequate CPT: 66445 This study was performed by me, and I personally interpreted all images/videos. Based on my clinical judgement, these images were adequate and did not necessitate further imaging. Critical Care Critical Care Time Critical Care Time: No Medical Decision Making Medical Records Medical records reviewed: Yes I reviewed the patient's medical records. Richar Inquiry Pt receiving controlled substance: No Richar was queried for this patient: No Vital Signs Vital Signs: 10/27/23 11:01 10/27/23 11:30 10/27/23 12:00 Temperature 97.7 F Temperature Source Oral Pulse Rate 74 74 Pulse Rate [Right] 74 Respiratory Rate 22 14 16 Blood Pressure 129/81 123/77 Blood Pressure [Right Arm] 149/92 H Blood Pressure Mean [Right Arm] 111 Blood Pressure Source [Right Arm] Automatic Cuff 02 Sat by Pulse Oximetry 98 96 100 Oxygen Delivery Method Room Air Room Air Room Air 10/27/23 12:30 10/27/23 13:00 10/27/23 13:30 Temperature Temperature Source Pulse Rate 74 62 66 Pulse Rate [Right] Respiratory Rate 20 23 15 Blood Pressure 130/84 127/82 144/87 H Blood Pressure [Right Arm] Blood Pressure Mean [Right Arm] Blood Pressure Source [Right Arm] 02 Sat by Pulse Oximetry 95 100 97 Oxygen Delivery Method Room Air Room Air Room Air 10/27/23 14:00 10/27/23 14:30 10/27/23 15:00 Temperature Temperature Source Pulse Rate 72 72 74 Pulse Rate [Right] Respiratory Rate 15 16 18 Blood Pressure 158/99 H 156/95 H 146/90 H Blood Pressure [Right Arm] Blood Pressure Mean [Right Arm] Blood Pressure Source [Right Arm] 02 Sat by Pulse Oximetry 95 94 L 95 Oxygen Delivery Method Room Air Room Air Room Air Lab Data Labs: Lab Results 10/27/23 11:02: WBC 15.3 H, RBC 4.20 L, Hgb 14.2, Hct 44.0, MCV 104.8 H, MCH 33.9 H, MCHC 32.3, RDW 14.3, Plt Count 206, MPV 8.9, Neut % (Auto) 83.2 H, Lymph % (Auto) 12.0, Wilkinson % (Auto) 4.0, Eos % (Auto) 0.3, Baso % (Auto) 0.5, Neut # (Auto) 12.7 H, Lymph # (Auto) 1.8, Wilkinson # (Auto) 0.6, Eos # (Auto) 0.0, Baso # (Auto) 0.1, Total Counted 100, Neutrophils % (Manual) 73, Lymphocytes % (Manual) 24, Monocytes % (Manual) 3, Platelet Estimate Normal, Macrocytosis 1+, Sodium 136, Potassium 4.3, Chloride 100, Carbon Dioxide 30, Anion Gap 10.3, BUN 19, Creatinine 1.00, Estimated Creat Clear 60, Estimated GFR 71, Est GFR ( Amer) 86, Glucose 120 H, Calcium 9.6, Total Bilirubin 1.2, AST 36, ALT 19, A lkaline Phosphatase 159 H, Troponin I < 0.01, NT-Pro-B Natriuret Pep 1200 H, Total Protein 7.5, Albumin 4.2, Globulin 3.3 H, Albumin/Globulin Ratio 1.3 10/27/23 14:29: Troponin I < 0.01 10/27/23 11:02 10/27/23 11:02 Response Orders (Tests/Meds): ED MEDICATIONS Generic Name Dose Route Start Last Admin Trade Name Freq PRN Reason Stop Dose Admin Sodium Chloride 10 ml 10/27/23 11:59 Sodium Chloride 0.9% 10ml Flush Syringe IV 11/26/23 11:58 NEEDED PRN Maintain IV Site Sodium Chloride 10 ml 10/27/23 13:26 10/27/23 13:27 Sodium Chloride 0.9% 10ml Syr (Rad Only) IV 11/26/23 13:25 10 ml NEEDED PRN Administration Maintain IV Site Discontinued Medications Generic Name Dose Route Start Last Admin Trade Name Freq PRN Reason Stop Dose Admin Iopamidol 100 ml 10/27/23 13:26 10/27/23 13:27 Iopamidol-370 (76%);100ml Bottle IV 10/27/23 13:27 100 ml ONCE ONE Administration Sodium Chloride 50 ml 10/27/23 13:26 10/27/23 13:27 0.9 % Sodium Chloride 50 Ml Vial IV 10/27/23 13:27 50 ml ONCE ONE Administration ORDERS Category Date Time Status CT angio chest - dissection Stat Cat Scan 10/27/23 12:51 Completed Cardiology Consult [Consult to Cardiology] [CONS] Cons 10/27/23 11:13 Active Routine Cardiology Consult [Consult to Cardiology] [CONS] Cons 10/27/23 13:36 Active Routine CXR --portable [XR chest portable] Stat Exams 10/27/23 12:01 Completed POCUS Point of Care (ER Only) Stat Exams 10/27/23 12:59 Completed Complete Blood Count Auto Diff Stat Lab 10/27/23 11:02 Completed Comprehensive Metabolic Panel Stat Lab 10/27/23 11:02 Completed NT Pro Brain Natriuretic Pep. Stat Lab 10/27/23 11:02 Completed Troponin I Q3H Lab 10/27/23 14:29 Completed Troponin I Q3H Lab 10/27/23 18:00 Ordered Troponin I Stat Lab 10/27/23 11:02 Completed MDM Narrative Medical Decision Narrative: 83-year-old male history of hypertension, hyperlipidemia, CHF, COPD not currently smoking or on home oxygen, hypothyroidism, A-fib secondary to ischemic cardiomyopathy currently on Eliquis with AICD in place presenting with chest pressure. Patient states started 2 days prior to this visit while he was at rest. Chest pressure is substernal, does not radiate, not associated specifically with exertion, rest, position, or any other obvious, notable changes. Has not taken anything for the pain. Has not been shocked by AICD. Denies diaphoresis, shortness of breath, nausea, vomiting, lower extremity swelling, or any other concerns. History was obtained via conversation with patient. On arrival, patient hemodynamically stable, alert, oriented x4, appropriate, GCS 15, moving all extremities spontaneously, pupils equal and reactive to light. Full physical exam performed and significant for very well- appearing male in no acute distress. Lungs are clear to auscultation bilaterally anterior and posteriorly. Cardiac exam muffled, but no obvious murmurs, gallops, or rubs. No lower extremity edema. Pulses equal and symmetric in upper and lower extremities. Neurovascularly intact. Ambulatory. Abdomen is soft, nontender, nondistended. He does have umbilical hernia that is reducible. Differential includes COPD exacerbation, microvascular coronary artery disease, CHF, ACS, HI, coronary artery dissection, pneumothorax, PE, dissection, pericarditis, myocarditis, pneumothorax, aortic aneurysm, pneumonia, bronchitis, among others. Patient was given 324 mg aspirin for symptomatic management and correction of underlying abnormalities. Workup independently interpreted and significant for actionable CBC or chemistry. BNP mildly elevated at 1200, kidney function within normal limits. Chest x-ray without acute cardiopulmonary airspace disease. See radiology read for full review of final results. Bedside cardiac ultrasound with moderate to severe aortic regurgitation. Independent interpretation of EKG shows ventricularly paced rhythm 75 beats a minute with Sgarbossa negative ST changes. Widened QRS 175 ms. QT interval within normal limits left axis deviation. Patient placed on continuous cardiac monitoring and continuous pulse ox with initial blood pressure 129/81, heart rate 70, saturation 96 on room air. Heart score 6. Patient was placed in observation beginning at 12 PM in order to rule out evolving HI with delta troponins and determine need for admission versus home-going. The patient was provided serial exams, ultrasound, monitoring while awaiting results. Independent interpretation of results demonstrated negative delta troponin. On reevaluation, still resting at baseline without complaints. At this time, I feel patient is appropriate for discharge. Prior to discharge, I called thoracic surgery at [facility] to follow-up. Patient has seen thoracic surgery, unknown if he is surgical candidate or not. Patient missed his previous appointment due to concerns for transport. He did receive [place] stated they will call him to set up another appointment that works for him and his schedule so he can arrange transport, I feel this is appropriate.. Total observation time 3 hours. Because patient at baseline without signs or symptoms of clinical decompensation, deemed appropriate for discharge. Results were relayed to patient who voiced understanding and were agreeable to outpatient management and follow up. I discussed my clinical impression with patient and answered all questions. At this time, the evidence for any other entities in the differential is insufficient to warrant any further testing or ED observation. This was explained as well. Advisory was given that persistent or worsening symptoms require further evaluation. I confirmed the understanding of this discussion.
--- NOTE | 2023-10-27 11:34 | PC.NURSE ---
SPOKE WITH CARDIOLOGY OFFICE, NOTIFIED OF CONSULT
--- NOTE | 2023-10-27 12:01 | XR_ITS ---
FINAL REPORT CLINICAL HISTORY: midsternal chest pain x2 days, shortness of breath COMPARISON: 01/15/2023 FINDINGS: There is mild atrophy. A biventricular pacemaker is present. The heart size is normal. The lungs are underinflated. There is mild atelectasis at the lung bases. There are no pleural effusions. There is no pneumothorax. There is no osseous abnormality. IMPRESSION: Mild atelectasis at the lung bases. Reviewed, Interpreted and Dictated by Marcos Hannon MD Transcribed by Mariah Sanabria Authenticated and [facility]
[2023-10-27 12:10] LABS: Chloride 100 mmol/L (98-107); Potassium 4.3 mmoL/L (3.5-5.1); Sodium 136 mmol/L (136-145)
[2023-10-27 12:13] LABS: Alanine Aminotransferase 19 U/L (12-78); Albumin Level 4.2 g/dl (3.5-5.0); Albumin/Globulin Ratio 1.3 (1.1-1.8); Alkaline Phosphatase 159 U/L (38-126); Anion Gap 10.3 mEq/L (5-15); Aspartate Amino Transferase 36 U/L (17-59); Bilirubin,Total 1.2 mg/dl (0.2-1.3); Blood Urea Nitrogen 19 mg/dl (9-20); Carbon Dioxide 30 mmol/L (22.0-30.0); Creatinine Clearance Estimated 60 mL/min (50-200); Estimated Glomerular Filt Rate 71 ml/min (>60); GFR (African American) 86 ML/MIN (>60); Globulin 3.3 g/dL (1.3-3.2); Total Protein,Serum 7.5 g/dl (6.3-8.2)
[2023-10-27 12:14] LABS: Basophils # 0.1 K/mm3 (0-0.2); Basophils % 0.5 % (0.1-2.0); Calcium 9.6 mg/dl (8.4-10.2); Eosinophils % 0.3 % (0.1-12.0); Glucose 120 mg/dl (74-100); Hemoglobin 14.2 g/dL (14.1-18.0); Lymphocytes # 1.8 K/mm3 (0.7-4.5); Mean Corpuscular HGB Conc 32.3 g/dL (31.8-35.4); Mean Corpuscular Hemoglobin 33.9 pg (27.0-31.2); Mean Corpuscular Volume 104.8 fl (80-94); Mean Platelet Volume 8.9 fl (7.4-10.4); Monocytes # 0.6 K/mm3 (0.1-1.0); Neutrophils # 12.7 K/mm3 (1.8-7.8); Neutrophils % 83.2 % (37.0-80.0); Platelet Count 206 K/mm3 (142-424); Red Cell Distribution Width 14.3 % (11.5-17.5); White Blood Count 15.3 K/mm3 (4.8-10.8)
[2023-10-27 12:17] LABS: MANUAL DIFFERENTIAL MANUAL DIFFERENTIAL (MANUAL DIFF)
[2023-10-27 12:32] LABS: Troponin I < 0.01 ng/ml (0.00-0.034)
--- NOTE | 2023-10-27 12:45 | PC.NURSE ---
CARDIOLOGY AT BEDSIDE
--- NOTE | 2023-10-27 12:51 | CT_ITS ---
FINAL REPORT TECHNIQUE: The patient was injected with IV contrast. Axial images were obtained through the chest in a PE protocol. 3-D reconstruction images were also performed. Individualized dose reduction techniques using automated exposure control or adjustment of the MA and/or KV according to patient's size were employed. CLINICAL HISTORY: TAA, chest pains and soa COMPARISON: None FINDINGS: Mediastinal vasculature is adequately opacified. There is streak artifact from left upper anterior chest wall pacemaker. No pulmonary artery filling defects are identified to suggest PE. There is no aortic dissection. There is an ascending thoracic aortic aneurysm measuring 4.9 cm in diameter. There is no axillary adenopathy. There is no hilar or mediastinal adenopathy. The heart size is normal. There is significant reflux of contrast into the IVC, possibly related to elevated right heart pressures. There is no pericardial or pleural effusion. There are moderate changes of centrilobular emphysema. Atelectasis is noted at the lung bases. IMPRESSION: No pulmonary embolus or dissection. Essentially unchanged thoracic aortic aneurysm. Reviewed, Interpreted and Dictated by Marcos Hannon MD Transcribed by Mariah Sanabria Authenticated and [facility]
[2023-10-27 12:54] LABS: NT Pro Brain Natriuretic Pep. 1200 pg/mL (0-450)
--- NOTE | 2023-10-27 13:21 | PC.NURSE ---
PT RETURNED FROM CT
[2023-10-27 13:26] LABS: Lymphocytes % 24 % (10-50); Macrocytosis 1+; Monocytes % 3 % (2-9); Neutrophils % 73 % (42-76); Platelet Estimate Normal; Total Cells Counted 100
[2023-10-27] MEDS: IOPAMIDOL-370 (76%);100ML BOTTLE 100 ML IV (13:27)
[2023-10-27] MEDS: SODIUM CHLORIDE 0.9% 10ML SYR (RAD ONLY) 10 ML IV (13:27)
[2023-10-27] MEDS: 0.9 % SODIUM CHLORIDE 50 ML VIAL IV (13:27)
--- NOTE | 2023-10-27 13:39 | EXP.CARD.CON ---
History of Present Illness History of Present Illness Consult date: 10/27/23 Requesting physician: Arthur Estrella Consult reason: chest pain Chief complaint: chest pain History of present illness: 83-year-old white male established patient of our office with history of nonischemic cardiomyopathy EF 20% status post BiV ICD placed 2016, Atrial fibrillation status post AV node ablation with permanent pacemaker 2022. Normal coronaries 2018. Last seen in our office June 2023. At that time he had CTA showing ascending aortic aneurysm 5.1 cm and an enlarged medial right lower lobe mass. He was referred to Dr. Asencio at for evaluation but pt states he was not able to keep that appointment. In the meantime saw Urology who ordered a CT abdomen today for f/u on left kidney mass. While here for the CT he mentioned having chest pressure for the past several days and they referred pt to ED. patient has differing stories to different providers. He tells me he has a pressure or squeezing sensation in his chest which is worse when he lays flat or sleeps on his side and is not affected by exertion or activity. States this occurs for 2 to 3 days at a time every couple of months since 2016. He told the ER provider he has had several days of exertional chest discomfort with worsening dyspnea on exertion. EKG is paced rhythm with no ST elevations. First troponin normal. [facility] Disclaimer: The information contained in this section may have been updated after the patient was seen, as this information can be updated by other users. 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) Palpitations Atrial flutter Thoracic ascending aortic aneurysm COPD (chronic obstructive pulmonary disease) Chest pain Atrial fibrillation Chronic systolic heart failure Dyspnea HLD (hyperlipidemia) HTN (hypertension) Surgical History Biventricular ICD (implantable cardioverter-defibrillator) in place Automatic implantable cardioverter-defibrillator in situ Family History Other Family history of stroke Social History Smoking Status: Former smoker tobacco type: cigarettes packs per day: 1 alcohol intake: current substance use type: denies use current occupational status: retired Travel in the last 8 weeks: None household members: none housing: house caffeine: Yes (coffee) Review of Systems Constitutional Constitutional: Denies fatigue and Denies weakness Eyes Eyes: Denies loss of vision ENT Ears, Nose, Mouth, and Throat: Denies hearing loss and Denies vertigo *Cardiovascular Cardiovascular: Reports chest pain, Denies dyspnea and Denies syncope *Respiratory Respiratory: Denies cough and Denies dyspnea *Gastrointestinal Gastrointestinal: Denies change in stool character, Denies nausea and Denies vomiting *Genitourinary Genitourinary: Denies difficulty urinating *Musculoskeletal Musculoskeletal: Denies muscle weakness Integumentary/Breasts Skin/Breast: Denies changing lesions *Neurologic Neurologic: Denies loss of vision, Denies syncope, Denies vertigo and Denies weakness Endocrine Endocrine: Denies fatigue Exam Data for Last 24 hours Vital signs and Labs for Last 24 Hours: Temp Pulse Resp BP Pulse Ox O2 Del Method 97.7 F 62 23 127/82 100 Room Air 10/27/23 11:01 10/27/23 13:00 10/27/23 13:00 10/27/23 13:00 10/27/23 13:00 10/27/23 13:00 Laboratory Results - last 24 hr 10/27/23 11:02: WBC 15.3 H, RBC 4.20 L, Hgb 14.2, Hct 44.0, MCV 104.8 H, MCH 33.9 H, MCHC 32.3, RDW 14.3, Plt Count 206, MPV 8.9, Neut % (Auto) 83.2 H, Lymph % (Auto) 12.0, [place] % (Auto) 4.0, Eos % (Auto) 0.3, Baso % (Auto) 0.5, Neut # (Auto) 12.7 H, Lymph # (Auto) 1.8, [place] # (Auto) 0.6, Eos # (Auto) 0.0, Baso # (Auto) 0.1, Total Counted 100, Neutrophils % (Manual) 73, Lymphocytes % (Manual) 24, Monocytes % (Manual) 3, Platelet Estimate Normal, Macrocytosis 1+, Sodium 136, Potassium 4.3, Chloride 100, Carbon Dioxide 30, Anion Gap 10.3, BUN 19, Creatinine 1.00, Estimated Creat Clear 60, Estimated GFR 71, Est GFR ( Amer) 86, Glucose 120 H, Calcium 9.6, Total Bilirubin 1.2, AST 36, ALT 19, Alkaline Phosphatase 159 H, Troponin I < 0.01, NT-Pro-B Natriuret Pep 1200 H, Total Protein 7.5, Albumin 4.2, Globulin 3.3 H, Albumin/Globulin Ratio 1.3 I & O for Last 24 hours: Intake & Output 10/24/23 10/25/23 10/26/23 10/27/23 23:59 23:59 23:59 23:59 Weight 170 lb Constitutional Constitutional: no acute distress and cooperative *Routine HEENT Exam Eye: Present PERRL *Routine Respiratory Exam Respiratory: Present CTA bilaterally; Absent accessory muscle use, wheezes or crackles *Routine Cardiovascular Exam Cardiovascular: Present RRR, Normal S1 and Normal S2; Absent murmur, gallop or rubs *Routine Abdominal Exam Abdominal: Present soft; Absent tenderness *Routine Extremities Exam Extremities: Present pulses intact; Absent cyanosis or edema *Routine Skin Exam Skin: Present intact; Absent erythema or wounds *Routine Neurological Exam Neurological: Present alert and oriented X3 Routine Psychiatric Exam Psychiatric: Present cooperative Meds Home Medications and Allergies Home Medications Medication Instructions Recorded Confirmed Type levothyroxine 100 mcg tablet 100 mcg PO DAILY hypothyroidism 12/22/18 06/24/23 History #90 tabs tamsulosin 0.4 mg capsule 0.4 mg PO HS prostate 01/15/23 06/24/23 History apixaban 5 mg tablet (Eliquis) 5 mg PO BID 01/20/23 06/24/23 History bisoprolol fumarate 10 mg tablet 10 mg PO DAILY #90 tabs 02/23/23 06/24/23 Rx allopurinol 100 mg tablet 100 mg PO DAILY 03/09/23 06/24/23 History vitamins A,C,U-hmiv-vmkthj 4,296 1 cap PO DAILY 03/09/23 06/24/23 History mcg-226 mg-90 mg capsule (PreserVision AREDS) lidocaine 5 % topical patch 1 patch topical DAILY #15 ea 07/06/23 Rx methocarbamol 500 mg tablet 500 mg PO Q12HP PRN muscle spasm 07/06/23 Rx #20 tabs pravastatin 40 mg tablet See Rx Instructions .Route 07/20/23 Rx .COMPLEX #90 tabs sacubitril 97 mg-valsartan 103 mg See Rx Instructions .Route 09/04/23 Rx tablet (Entresto) .COMPLEX #180 tabs New Prescriptions to Start Prescriptions: Allergies Allergy/AdvReac Type Severity Reaction Status Date / Time No Known Allergies Allergy Verified 06/24/23 10:25 Assessment and Plan *Assessment and plan (1) Chest pain: Status: Acute Qualifiers: Chest pain type: unspecified Qualified Code(s): R07.9 - Chest pain, unspecified Category: Medical Code(s): R07.9 - Chest pain, unspecified (2) Atrial fibrillation with RVR: Status: Acute Category: Medical Code(s): I48.91 - Unspecified atrial fibrillation (3) Biventricular ICD (implantable cardioverter-defibrillator) in place: Status: Acute Category: Surgical Code(s): Z95.810 - Presence of automatic (implantable) cardiac defibrillator (4) Hyperlipidemia: Status: Acute Qualifiers: Hyperlipidemia type: unspecified Qualified Code(s): E78.5 - Hyperlipidemia, unspecified Category: Medical Code(s): E78.5 - Hyperlipidemia, unspecified (5) COPD (chronic obstructive pulmonary disease): Status: Acute Qualifiers: COPD type: unspecified COPD Qualified Code(s): J44.9 - Chronic obstructive pulmonary disease, unspecified Category: Medical Code(s): J44.9 - Chronic obstructive pulmonary disease, unspecified (6) Hypertension: Status: Acute Qualifiers: Hypertension type: unspecified Qualified Code(s): I10 - Essential (primary) hypertension Category: Medical Code(s): I10 - Essential (primary) hypertension (7) CHF (congestive heart failure): Status: Acute Qualifiers: Heart failure type: unspecified Heart failure chronicity: unspecified Qualified Code(s): I50.9 - Heart failure, unspecified Category: Medical Code(s): I50.9 - Heart failure, unspecified (8) Atrial flutter: Status: Acute Qualifiers: Atrial flutter type: unspecified Qualified Code(s): I48.92 - Unspecified atrial flutter Category: Medical Code(s): I48.92 - Unspecified atrial flutter (9) Thoracic ascending aortic aneurysm: Status: Chronic Qualifiers: Presence of rupture: without rupture Qualified Code(s): I71.21 - Aneurysm of the ascending aorta, without rupture Category: Medical Code(s): I71.2 - Thoracic aortic aneurysm, without rupture (10) Sepsis: Status: Acute Qualifiers: Sepsis type: sepsis due to unspecified organism Sepsis acute organ dysfunction status: unspecified Qualified Code(s): A41.9 - Sepsis, unspecified organism Category: Medical Code(s): A41.9 - Sepsis, unspecified organism Plan Chest Pain Unspecified - likely noncardiac but difficult to tell given his differing account/history to different providers - recommend checking 2 Trop, EKG, and CTA to r/o worsening Ascending Aortic Aneurysm Ascending aortic aneurysm, 5.1 cm -Will repeat here given his complaint of chest pain -Patient was due to follow-up with [facility] surgery for consultation-he missed this appointment, will try to rearrange outpatient Right lower lobe mass, left kidney mass -Repeat imaging due on both outpatient, consider neoplasm HFrEF, nonischemic cardiomyopathy status post BiV ICD -EF 20% in June -Check proBNP and CT chest, he does not appear to be in exacerbation PAF status post AVN ablation 2022 -Paced rhythm on EKG here, asymptomatic
--- NOTE | 2023-10-27 14:31 | PC.NURSE ---
DR XAVIER AT BEDSIDE TO US
--- NOTE | 2023-10-27 14:47 | PC.NURSE ---
IMAGES POWER SHARED WITH [facility]
--- NOTE | 2023-10-27 14:49 | PC.NURSE ---
DR XAVIER SPEAKING WITH [facility]
[2023-10-27 15:06] LABS: Troponin I < 0.01 ng/ml (0.00-0.034)
--- NOTE | 2023-10-27 15:40 | PC.NURSE ---
DR XAVIER AT BEDSIDE TO UPDATE PT
== END 2023-10-27 15:59 | disposition home or self-care (01) ==
PROVIDERS: Emergency Provider Emergency Medicine; PCP Internal Medicine
DX: R07.9 Chest pain, unspecified (principal); I35.1 Nonrheumatic aortic (valve) insufficiency; J44.9 Chronic obstructive pulmonary disease, unspecified; I11.0 Hypertensive heart disease with heart failure; I50.22 Chronic systolic (congestive) heart failure; E78.5 Hyperlipidemia, unspecified; E03.9 Hypothyroidism, unspecified; I48.0 Paroxysmal atrial fibrillation; R06.02 Shortness of breath; Z95.810 Presence of automatic (implantable) cardiac defibrillator; Z87.891 Personal history of nicotine dependence
CPT/HCPCS: 36415; 71045; 71275; 80053; 82565; 83880; 84484; 84520; 85007; 85025; 93005; 99285; Q9967

== ENCOUNTER 2023-10-28 15:30 | Outpatient (CLI) | payer MEDICARE, SELFPAY ==
--- NOTE | 2023-10-28 15:40 | XR_ITS ---
FINAL REPORT CLINICAL HISTORY: ACUTE LOWER BACK PAIN COMPARISON: None FINDINGS: 5 views of the lumbar spine were obtained. There is no evidence of fracture or dislocation. The vertebral alignment is normal. Mild disc space narrowing is noted throughout the lumbar spine. Mild anterior osteophytes are present at the L1-2, L2-3, and L3-4 levels. No paraspinous soft tissue abnormalities identified. IMPRESSION: No acute bony abnormality. Mild degenerative change as described. Reviewed, Interpreted and Dictated by Marcos Hannon MD Transcribed by Gladis Bess Authenticated and [facility]
== END 2023-10-28 23:59 | disposition home or self-care (01) ==
LOC: RAD 15:31
PROVIDERS: PCP Internal Medicine; Visit Provider Internal Medicine
DX: M54.50 Low back pain, unspecified (principal)
CPT/HCPCS: 72110

== ENCOUNTER 2023-10-29 14:26 | Emergency (ER) | payer MEDICARE, SELFPAY ==
[2023-10-29 14:26] VITALS: BP 144/95; PULSE 79; RESP 18; O2SAT 95; BMI 27.9
--- NOTE | 2023-10-29 14:31 | ED_ITS ---
<Statement entered by Yani Piña DO - 10/29/23 15:04> I was consulted by the YIFAN, and we discussed the complexity of the problems being addressed. I approved the treatment and management plan for this patient's care in the emergency department, thus performing a substantive portion of the medical decision making. Yani Piña DO Discharge Plan Disposition Patient Disposition: Home, Self-Care Condition: Good Prescriptions Prescriptions: New lidocaine 5 % adhesive patch,medicated 1 patch topical DAILY Qty: 30 0RF Rx Instructions: leave on most painful area for up to 12 hrs No Action bisoprolol fumarate 10 mg tablet 10 mg PO DAILY Qty: 90 3RF allopurinol 100 mg tablet 100 mg PO DAILY PreserVision AREDS 4,296 mcg-226 mg-90 mg capsule 1 cap PO DAILY levothyroxine 100 mcg tablet 100 mcg PO DAILY Qty: 90 Eliquis 5 mg tablet 5 mg PO BID pravastatin 40 mg tablet See Rx Instructions .ROUTE .COMPLEX Qty: 90 3RF Dose Instruction: TAKE 1 TABLET AT BEDTIME FOR CHOLESTEROL Rx Instructions: TAKE 1 TABLET AT BEDTIME FOR CHOLESTEROL Entresto 97-103 mg tablet See Rx Instructions .ROUTE .COMPLEX Qty: 180 3RF Dose Instruction: TAKE 1 TABLET TWICE DAILY Rx Instructions: TAKE 1 TABLET TWICE DAILY tamsulosin 0.4 mg Capsule 0.4 mg PO HS methocarbamol 500 mg tablet 500 mg PO Q12HP PRN (Reason: muscle spasm) Qty: 20 0RF lidocaine 5 % adhesive patch,medicated 1 patch topical DAILY Qty: 15 0RF Rx Instructions: leave on most painful area for up to 12 hrs. Remove after 12 hours and leave off for 12 hours before placing a new patch dexamethasone 6 mg tablet 6 mg PO DAILY Qty: 5 0RF Referrals Follow up/Referrals: Johnnie Lincoln MD [Primary Care Provider] - See instructions Activity Restrictions/Add. Instructions Additional Instructions/Restrictions: Please call make an appointment with your PCP for follow-up within 1 week. Return to your PCP of the emergency department for any worsening signs or symptoms. Clinical Impressions Clinical Impression: Acute low back pain Qualifiers: Back pain laterality: midline Instructions Patient Instructions: DI for Low Back Pain Discharge ED Provider: Yani Piña General Adult HPI General Chief complaint: Back Pain/Injury Stated complaint: Back Pain Time Seen by Provider: 10/29/23 14:31 History of Present Illness HPI narrative: Patient presents for a day and a half of mid spine lumbar back pain. Pain does not radiate. Patient states that it is incapacitating him. He reports that he is having to urinate and a coffee can because he cannot make it to the bathroom due to the pain. He denies any trauma paresthesias loss of bowel or bladder function numbness or tingling. Patient currently is without chest pain shortness of breath fever chills hemoptysis hematochezia melena nausea vomit diarrhea. Patient was here 2 days ago for what he thought was his IACD firing however he had a complete workup and was negative was ultimately discharged home. The back pain started after that. Related Data Home Medications Medication Instructions Recorded Confirmed levothyroxine 100 mcg tablet 100 mcg PO DAILY hypothyroidism 12/22/18 06/24/23 #90 tabs tamsulosin 0.4 mg capsule 0.4 mg PO HS prostate 01/15/23 06/24/23 apixaban 5 mg tablet (Eliquis) 5 mg PO BID 01/20/23 06/24/23 allopurinol 100 mg tablet 100 mg PO DAILY 03/09/23 06/24/23 vitamins A,C,V-bgky-ynlsux 4,296 1 cap PO DAILY 03/09/23 06/24/23 mcg-226 mg-90 mg capsule (PreserVision AREDS) Previous Rx's Medication Instructions Recorded bisoprolol fumarate 10 mg tablet 10 mg PO DAILY #90 tabs 02/23/23 lidocaine 5 % topical patch 1 patch topical DAILY #15 ea 07/06/23 methocarbamol 500 mg tablet 500 mg PO Q12HP PRN muscle spasm 07/06/23 #20 tabs pravastatin 40 mg tablet See Rx Instructions .Route 07/20/23 .COMPLEX #90 tabs sacubitril 97 mg-valsartan 103 mg See Rx Instructions .Route 09/04/23 tablet (Entresto) .COMPLEX #180 tabs lidocaine 5 % topical patch 1 patch topical DAILY #30 ea 10/29/23 dexamethasone 6 mg tablet 6 mg PO DAILY #5 tabs 10/30/23 Allergies Allergy/AdvReac Type Severity Reaction Status Date / Time No Known Allergies Allergy Verified 06/24/23 10:25 [facility] Disclaimer: The information contained in this section may have been updated after the patient was seen, as this information can be updated by other users. 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) Palpitations Atrial flutter Thoracic ascending aortic aneurysm COPD (chronic obstructive pulmonary disease) Chest pain Atrial fibrillation Chronic systolic heart failure Dyspnea HLD (hyperlipidemia) HTN (hypertension) Surgical History Biventricular ICD (implantable cardioverter-defibrillator) in place Automatic implantable cardioverter-defibrillator in situ Family History Other Family history of stroke Social History Smoking Status: Never smoker alcohol intake: current substance use type: denies use current occupational status: retired Travel in the last 8 weeks: None household members: none housing: house caffeine: Yes (coffee) ROS Obtained: Yes Systems reviewed as appropriate & no additional complaints except as documented Physical Exam General General appearance: alert and in no apparent distress Head Head exam: atraumatic and normal inspection Eye Eye exam: Present normal appearance, PERRL and EOMI ENT ENT exam: Present normal exam, normal oropharynx and mucous membranes moist Neck Neck exam: Present normal inspection and full ROM; Absent lymphadenopathy Chest Chest inspection: Present normal inspection and symmetric chest wall rise Respiratory Respiratory exam: Present normal lung sounds bilaterally; Absent respiratory distress, wheezes or accessory muscle use Cardiovascular Cardiovascular exam: Present regular rate, normal rhythm and bradycardia Abdominal Exam Abdominal exam: Present soft and normal bowel sounds; Absent tenderness Extremities Exam Extremities exam: Present normal inspection and full ROM (Of motion is limited due to increasing pain in his lumbar spine with straight leg raise) Back Exam Back exam: Present normal inspection, tenderness (Patient is tender to palpation in the midline lumbar spine/lower thoracic spine) and vertebral tenderness; Absent full ROM or paraspinal tenderness Neurological Exam Neurological exam: Present alert, oriented X3 and CN II-XII intact; Absent normal gait (Patient reports he is unable to ambulate) Psychiatric Psychiatric exam: Present normal affect and normal mood Skin Skin exam: Present warm, dry and normal color Medical Decision Making Medical Records Medical records reviewed: Yes I reviewed the patient's medical records. Rich[place] Inquiry Pt receiving controlled substance: No Vital Signs: 10/29/23 14:26 10/29/23 15:30 10/29/23 16:00 Temperature Temperature Source Pulse Rate 78 68 Pulse Rate [Apical] 79 Respiratory Rate 18 Blood Pressure 137/82 118/71 Blood Pressure [Right Arm] 144/95 H Blood Pressure Mean 86 Blood Pressure Mean [Right Arm] 111 Blood Pressure Source Blood Pressure Source [Right Arm] Automatic Cuff Blood Pressure Position Blood Pressure Position [Right Arm] Sitting 02 Sat by Pulse Oximetry 95 94 L 92 L Oxygen Delivery Method Room Air 10/29/23 16:30 10/29/23 17:01 10/29/23 17:27 Temperature 98.0 F Temperature Source Oral Pulse Rate 69 75 75 Pulse Rate [Apical] Respiratory Rate 18 Blood Pressure 110/68 108/74 L 108/74 L Blood Pressure [Right Arm] Blood Pressure Mean 78 79 Blood Pressure Mean [Right Arm] Blood Pressure Source Automatic Cuff Blood Pressure Source [Right Arm] Blood Pressure Position Sitting Blood Pressure Position [Right Arm] 02 Sat by Pulse Oximetry 95 97 Oxygen Delivery Method Room Air Lab Data Lab results reviewed: Yes I reviewed the patient's lab results. Lab Results 10/29/23 14:20: WBC 17.9 H, RBC 4.17 L, Hgb 14.0 L, Hct 42.2, MCV 101.4 H, MCH 33.6 H, MCHC 33.1, RDW 14.7, Plt Count 219, MPV 9.1, Neut % (Auto) 82.4 H, Lymph % (Auto) 11.4, [place] % (Auto) 5.5, Eos % (Auto) 0.2, Baso % (Auto) 0.5, Neut # (Auto) 14.7 H, Lymph # (Auto) 2.0, [place] # (Auto) 1.0, Eos # (Auto) 0.0, Baso # (Auto) 0.1, Total Counted 100, Neutrophils % (Manual) 84 H, Lymphocytes % (Manual) 14, Monocytes % (Manual) 2, Platelet Estimate Normal, RBC Morphology Normal, Sodium 130 L, Potassium 3.8, Chloride 98, Carbon Dioxide 27, Anion Gap 8.8, BUN 17, Creatinine 0.80, Estimated GFR 92, Est GFR ( Amer) 111 D, G lucose 122 H, Calcium 9.1, Total Bilirubin 1.5 H, AST 40, ALT 24 D, Alkaline Phosphatase 154 H, Total Protein 7.0, Albumin 3.9, Globulin 3.1, Albumin/Globulin Ratio 1.3 10/29/23 14:40: Urine Color Yellow, Urine Appearance Clear, Urine pH 6.0, Ur Specific [place] 1.010, Urine Protein Negative, Urine Glucose (UA) Negative, Urine Ketones Negative, Urine Blood Trace-i, Urine Nitrate Negative, Urine Bilirubin Negative, Urine Urobilinogen 0.2, Ur Leukocyte Esterase Negative, Urine RBC Occasional, Urine WBC None, Ur Squamous Epith Cells Occasional, Urine Bacteria None 10/29/23 14:20 10/29/23 14:20 Orders (Tests/Meds): ED MEDICATIONS Discontinued Medications Generic Name Dose Route Start Last Admin Trade Name Freq PRN Reason Stop Dose Admin Acetaminophen 1,000 mg 10/29/23 14:33 10/29/23 14:47 Acetaminophen 500mg Tab PO 10/29/23 14:34 1,000 mg ONCE ONE Administration Iopamidol 100 ml 10/29/23 15:19 10/29/23 15:20 Iopamidol-370 (76%);100ml Bottle IV 10/29/23 15:20 100 ml ONCE ONE Administration Ketorolac Tromethamine 15 mg 10/29/23 14:33 10/29/23 14:47 Ketorolac 30mg/Ml Vial IV 10/29/23 14:34 15 mg ONCE ONE Administration Lidocaine 1 each 10/29/23 14:33 10/29/23 14:48 Lidocaine 5% Transdermal Patch TP 10/29/23 14:34 1 each ONCE ONE Administration Morphine Sulfate 4 mg 10/29/23 14:50 10/29/23 15:44 Morphine 4mg/Ml Syringe IV 10/29/23 14:51 4 mg ONCE ONE Administration Sodium Chloride 10 ml 10/29/23 15:19 10/29/23 15:20 Sodium Chloride 0.9% 10ml Syr (Rad Only) IV 11/28/23 15:18 10 ml NEEDED PRN Administration Maintain IV Site Sodium Chloride 50 ml 10/29/23 15:19 10/29/23 15:20 0.9 % Sodium Chloride 50 Ml Vial IV 10/29/23 15:20 50 ml ONCE ONE Administration ORDERS Category Date Time Status CT angio abdomen pelvis Stat Cat Scan 10/29/23 14:[address] angio chest - dissection Stat Cat Scan 10/29/23 14:[address] lumbar spine wo con Stat Cat Scan 10/29/23 14:[address] thoracic spine wo con Stat Cat Scan 10/29/23 14:33 Completed CBC w/Auto Diff [Complete Blood Count Auto Diff] Stat Lab 10/29/23 14:20 Completed CMP [Comprehensive Metabolic Panel] Stat Lab 10/29/23 14:20 Completed UA [Urinalysis and Microscopic] Stat Lab 10/29/23 14:40 Completed Medical Decision Narrative: In summary patient is a 83-year-old male who presents to the emergency department for evaluation of low back pain. Patient is hemodynamically stable upon arrival, afebrile. Physical exam is remarkable for tenderness to palpation in the dorsal lumbar spine however patient has no focal neurologic symptoms, no neurologic deficits, is neurovascularly intact distally in his bilateral extremities. Pain does not radiate anywhere. He has been numbness and tingling the bilateral lower extremities.. Differential diagnosis includes musculoskeletal strain versus degenerative disc disease versus spinal stenosis. Initial workup will be conducted with hematologic labs CT scan of the lumbar and thoracic spine and CTA of the chest abdomen pelvis twelve-lead EKG urinalysis. Initial interventions include Toradol Tylenol lidocaine patch morphine. Initial workup reviewed by me and my informal interpretation of his CT scans shows no acute processes including no evidence of spinal cord compression, no acute bony deformities, it does show multilevel disc disease the radiology read pending. Hematologic labs show leukocytosis that is nonspecific with a normal urinalysis and the remainder of his hematologic labs are nonactionable. Regarding his leukocytosis is nonspecific and he has no fever is hemodynamically stable and no evidence of ongoing infection has been found despite extensive workup 2 days ago and today. Could easily be distress margination. Upon repeat evaluation patient had significant reduction in his pain and actually was sleeping at the time of reexam. Given this appropriate for discharge home with a prescription for lidocaine patches, referral back and close follow-up with his PCP for further evaluation as an outpatient if pain continues. Critical Care Critical Care Time Critical Care Time: No
--- NOTE | 2023-10-29 14:33 | ECG_ITS ---
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
--- NOTE | 2023-10-29 14:33 | CT_ITS ---
FINAL REPORT TECHNIQUE: Axial images were obtained of the thoracic spine by computed tomography. Coronal and sagittal reconstruction process performed. This study was performed with techniques to keep radiation doses as low as reasonably achievable (ALARA). Individualized dose reduction techniques using automated exposure control or adjustment of mA and/or kV according to the patient's size were employed. CLINICAL HISTORY: Acute back pain FINDINGS: Thoracic vertebrae show normal height. There is mild anterior osteophyte formation in the mid and lower thoracic spine. There is a prominent Schmorl's node at the inferior endplate of T9. There is no malalignment. The facets are properly aligned. There is atelectasis in the lung bases. There are moderate changes of centrilobular emphysema in the visualized lungs. IMPRESSION: Degenerative changes without acute bony abnormality. Reviewed, Interpreted and Dictated by Marcos Hannon MD Transcribed by Nancy Begum Authenticated and [facility]
--- NOTE | 2023-10-29 14:33 | CT_ITS ---
FINAL REPORT TECHNIQUE: Axial images were obtained of the lumbar spine by computed tomography. Coronal and sagittal reconstruction process performed. This study was performed with techniques to keep radiation doses as low as reasonably achievable (ALARA). Individualized dose reduction techniques using automated exposure control or adjustment of mA and/or kV according to the patient''s size were employed. CLINICAL HISTORY: Acute back pain FINDINGS: Lumbar vertebrae show normal height. There is prominent anterior osteophyte formation at L2-3 and L3-4. There is no malalignment. Schmorl's nodes are seen at the inferior endplates of L1, L2, and L3. L1-2: No significant disc bulge or protrusion. L2-3: No significant disc bulge or protrusion. L3-4: Mild diffuse disc bulge is present with mild bilateral neural foraminal narrowing. L4-5: Mild diffuse disc bulge is present with mild bilateral neural foraminal narrowing. L5-S1: Mild diffuse disc bulge is present. The neural foramina are adequately patent. IMPRESSION: Diffuse disc bulges at L3-4 and L4-5. Schmorl's nodes at the inferior endplates of L1, L2, and L3. Reviewed, Interpreted and Dictated by Marcos Hannon MD Transcribed by Nancy Begum Authenticated and [facility]
--- NOTE | 2023-10-29 14:42 | PC.NURSE ---
POST VOID RESIDUAL 103 MLS
[2023-10-29 14:44] LABS: Microscopic, Urine URINE MICROSCOPIC (MICROSCOPIC)
[2023-10-29 14:45] LABS: Basophils # 0.1 K/mm3 (0-0.2); Basophils % 0.5 % (0.1-2.0); Eosinophils % 0.2 % (0.1-12.0); Hematocrit 42.2 % (42.0-52.0); Lymphocytes % 11.4 % (10-50); Mean Corpuscular HGB Conc 33.1 g/dL (31.8-35.4); Mean Corpuscular Hemoglobin 33.6 pg (27.0-31.2); Mean Corpuscular Volume 101.4 fl (80-94); Mean Platelet Volume 9.1 fl (7.4-10.4); Monocytes % 5.5 % (1.7-9.3); Neutrophils # 14.7 K/mm3 (1.8-7.8); Neutrophils % 82.4 % (37.0-80.0); Platelet Count 219 K/mm3 (142-424); Red Blood Count 4.17 M/mm3 (4.60-6.20); Red Cell Distribution Width 14.7 % (11.5-17.5); White Blood Count 17.9 K/mm3 (4.8-10.8)
[2023-10-29 14:47] LABS: Appearance,Urine CLEAR (Clear); Bilirubin,Urine Negative (Negative); Blood, Urine TRACE-I (Negative); Color,Urine YELLOW (Yellow); Glucose,Urine (UA) Negative (Negative); Ketones,Urine Negative (Negative); Leukocyte Esterase,Urine Negative (Negative); Nitrate,Urine Negative (Negative); Protein,Urine Negative (Negative); Urobilinogen,Urine 0.2 EU/dl (0.2)
[2023-10-29 14:47] LABS: Chloride 98 mmol/L (98-107); Potassium 3.8 mmoL/L (3.5-5.1); Sodium 130 mmol/L (136-145)
[2023-10-29] MEDS: KETOROLAC 30MG/ML VIAL 15 MG IV (14:47)
[2023-10-29] MEDS: ACETAMINOPHEN 500MG TAB 1000 MG PO (14:47)
[2023-10-29] MEDS: LIDOCAINE 5% TRANSDERMAL PATCH 1 EACH TP (14:48)
[2023-10-29 14:50] LABS: Alanine Aminotransferase 24 U/L (12-78); Albumin Level 3.9 g/dl (3.5-5.0); Albumin/Globulin Ratio 1.3 (1.1-1.8); Alkaline Phosphatase 154 U/L (38-126); Anion Gap 8.8 mEq/L (5-15); Aspartate Amino Transferase 40 U/L (17-59); Bilirubin,Total 1.5 mg/dl (0.2-1.3); Blood Urea Nitrogen 17 mg/dl (9-20); Carbon Dioxide 27 mmol/L (22.0-30.0); Estimated Glomerular Filt Rate 92 ml/min (>60); GFR (African American) 111 ML/MIN (>60); Globulin 3.1 g/dL (1.3-3.2)
[2023-10-29 14:51] LABS: Calcium 9.1 mg/dl (8.4-10.2); Glucose 122 mg/dl (74-100)
[2023-10-29 14:52] LABS: MANUAL DIFFERENTIAL MANUAL DIFFERENTIAL (MANUAL DIFF)
--- NOTE | 2023-10-29 14:52 | PC.NURSE ---
pt to CT via stretcher
--- NOTE | 2023-10-29 14:56 | CT_ITS ---
FINAL REPORT TECHNIQUE: Pre-and postcontrast images of the abdomen and pelvis were performed by computed tomography. Extensive 3-D reconstruction images were performed. A CTA was performed. This study was performed with techniques to keep radiation doses as low as reasonably achievable (ALARA). Individualized dose reduction techniques using automated exposure control or adjustment of mA and/or kV according to the patient''s size were employed. CLINICAL HISTORY: severe back pain, leukocytosis FINDINGS: ABDOMEN/PELVIS: Precontrast images demonstrate no evidence of nephrolithiasis. No adrenal masses are identified. There is mild fatty infiltration of the liver. The gallbladder is present. There are multiple bilateral renal cysts. Individual cysts measure up to 3.0 cm in diameter. Some of these appear to be simple cysts while others are complex. Complex cyst arising from the posterior aspect of the left kidney measures 2.3 cm. The spleen and pancreas are unremarkable. There is a large amount of retained stool throughout the colon. The urinary bladder is incompletely distended. There is a fat containing left inguinal hernia. CTA: There is mild ectasia of the abdominal aorta measuring 3.1 cm. The SMA, celiac axis, and NICOLA are patent. There is no significant stenosis or calcification. The renal arteries are patent bilaterally. The iliac arteries are tortuous with calcification but without significant stenosis. IMPRESSION: Bilateral renal cysts both simple and complex. Mild ectasia of the abdominal aorta. Fat containing left inguinal hernia. Reviewed, Interpreted and Dictated by Marcos Hannon MD Transcribed by Nancy Begum Authenticated and [facility]
--- NOTE | 2023-10-29 14:56 | CT_ITS ---
FINAL REPORT TECHNIQUE: The patient was injected with IV contrast. Axial images were obtained through the chest in a PE protocol. 3-D reconstruction images were also performed. Individualized dose reduction techniques using automated exposure control or adjustment of the MA and/or KV according to patient's size were employed. CLINICAL HISTORY: h/o TAA, severe back pain FINDINGS: Mediastinal vasculature is adequately opacified. No pulmonary artery filling defects are identified to suggest PE. The ascending aorta measures 4.8 cm in diameter, similar to previous. There is a left upper anterior chest wall pacemaker. There is no aortic dissection. There is no axillary adenopathy. There is no hilar or mediastinal adenopathy. The heart size is normal. There is no pericardial or pleural effusion. There is atelectasis in the lung bases. No suspicious infiltrate or nodule is identified. IMPRESSION: No pulmonary embolus or dissection. Ascending thoracic aneurysm. Reviewed, Interpreted and Dictated by Marcos Hannon MD Transcribed by Nancy Begum Authenticated and . [facility]
[2023-10-29 15:00] LABS: RBC,Urine Occasional #/hpf (0-3); Squamous Epithelial Cell,Urine Occasional #/hpf (0-5)
[2023-10-29] MEDS: IOPAMIDOL-370 (76%);100ML BOTTLE 100 ML IV (15:20)
[2023-10-29] MEDS: 0.9 % SODIUM CHLORIDE 50 ML VIAL IV (15:20)
[2023-10-29] MEDS: SODIUM CHLORIDE 0.9% 10ML SYR (RAD ONLY) 10 ML IV (15:20)
[2023-10-29 15:30] VITALS: BP 137/82; PULSE 78; O2SAT 94
[2023-10-29] MEDS: MORPHINE 4MG/ML SYRINGE 4 MG IV (15:44)
[2023-10-29 16:00] VITALS: BP 118/71; PULSE 68; O2SAT 92
--- NOTE | 2023-10-29 16:15 | PC.NURSE ---
ROUNDED ON PT, SLEEPING SOUNDLY. AWAKENS EASILY. DENIES NEEDS AT THIS TIME. CALL LIGHT WITHIN REACH
[2023-10-29 16:30] VITALS: BP 110/68; PULSE 69; O2SAT 95
[2023-10-29 17:01] VITALS: BP 108/74; PULSE 75; O2SAT 97
[2023-10-29 17:17] LABS: Lymphocytes % 14 % (10-50); Monocytes % 2 % (2-9); Neutrophils % 84 % (42-76); Platelet Estimate Normal; RBC Morphology Normal; Total Cells Counted 100
[2023-10-29 17:27] VITALS: BP 108/74; PULSE 75; RESP 18; TEMP 36.7; O2SAT 98
== END 2023-10-29 17:32 | disposition home or self-care (01) ==
PROVIDERS: Physician Assistant; Emergency Provider Emergency Medicine; PCP Internal Medicine
DX: M54.59 Other low back pain (principal); E87.1 Hypo-osmolality and hyponatremia; J44.9 Chronic obstructive pulmonary disease, unspecified; I11.0 Hypertensive heart disease with heart failure; I50.22 Chronic systolic (congestive) heart failure; E78.5 Hyperlipidemia, unspecified; I48.0 Paroxysmal atrial fibrillation; Z95.810 Presence of automatic (implantable) cardiac defibrillator
CPT/HCPCS: 71275; 72128; 72131; 74174; 80053; 81001; 85007; 85025; 93005; 96374; 96375; 99285; Q9967

== ENCOUNTER 2023-10-30 18:20 | Emergency (ER) | payer MEDICARE, SELFPAY ==
[2023-10-30 18:20] VITALS: BP 150/90; PULSE 64; RESP 20; TEMP 36.6; O2SAT 96; BMI 27.9
[2023-10-30 18:28] VITALS: BP 126/76; PULSE 68; RESP 18; TEMP 36.6; O2SAT 97
--- NOTE | 2023-10-30 18:55 | HMH.EDGENADL ---
Discharge Plan Disposition Patient Disposition: Home, Self-Care Prescriptions Prescriptions: New dexamethasone 6 mg tablet 6 mg PO DAILY Qty: 5 0RF No Action bisoprolol fumarate 10 mg tablet 10 mg PO DAILY Qty: 90 3RF allopurinol 100 mg tablet 100 mg PO DAILY PreserVision AREDS 4,296 mcg-226 mg-90 mg capsule 1 cap PO DAILY levothyroxine 100 mcg tablet 100 mcg PO DAILY Qty: 90 Eliquis 5 mg tablet 5 mg PO BID pravastatin 40 mg tablet See Rx Instructions .ROUTE .COMPLEX Qty: 90 3RF Dose Instruction: TAKE 1 TABLET AT BEDTIME FOR CHOLESTEROL Rx Instructions: TAKE 1 TABLET AT BEDTIME FOR CHOLESTEROL Entresto 97-103 mg tablet See Rx Instructions .ROUTE .COMPLEX Qty: 180 3RF Dose Instruction: TAKE 1 TABLET TWICE DAILY Rx Instructions: TAKE 1 TABLET TWICE DAILY tamsulosin 0.4 mg Capsule 0.4 mg PO HS methocarbamol 500 mg tablet 500 mg PO Q12HP PRN (Reason: muscle spasm) Qty: 20 0RF lidocaine 5 % adhesive patch,medicated 1 patch topical DAILY Qty: 15 0RF Rx Instructions: leave on most painful area for up to 12 hrs. Remove after 12 hours and leave off for 12 hours [address] a new patch lidocaine 5 % adhesive patch,medicated 1 patch topical DAILY Qty: 30 0RF Rx Instructions: leave on most painful area for up to 12 hrs Referrals Follow up/Referrals: Wilmer Londono MD [Staff Physician] - See instructions Nate Gomez, PT [Physical Therapist] - See instructions Provider,Referral, [Primary Care Provider] - See instructions Activity Restrictions/Add. Instructions Additional Instructions/Restrictions: Steroid daily for 5 days. Follow-up with Dr. Londono and physical therapy for pain control of your back. Call your family doctor to establish care for this visit to the emergency department and schedule follow-up within 48 hours to ensure improvement. If you have any worsening of your condition or any other concerning signs or symptoms, return to the emergency department or your primary care doctor for further evaluation. Clinical Impressions Clinical Impression: Back pain Discharge ED Provider: Kulwant Love General Adult HPI General Chief complaint: PAIN Stated complaint: back Pain Time Seen by Provider: 10/30/23 18:26 Mode of Arrival: EMS Source of Information: Patient and EMS Limitations: No Limitations Description of Symptoms (Recalled from ER Triage Doc. by RN): Patient is brought to ED via [facility] with c/o of lower back pain that is radiating to both sides. Patient reports taking Hydrocodone at 4:30pm and then took another 1/2 tab around 6:00 with no relief. Patient denies injury to back. Patient was seen in ED yesterday and states He received morphine and it has been the only thing to help with pain History of Present Illness HPI narrative: This is an 83-year-old male with numerous comorbidities presenting with chronic back pain. States that this is the back pain he always has. It is midline, intermittently radiates around both flanks into both sides of his lower quadrants. This is been going on for days. States that he was given hydrocodone for back pain, has been taking that, states that it helps intermittently, when it wears off he gets worse. No bowel or bladder dysfunction, lower extremity deficits, or any other concerns. No recent injuries or fall/injury since last spine imaging. Please note that above description of symptoms, in this electronic medical record under categorization of recalled from ER triage doctor by RN are reflective of an initial nursing assessment, however, is not reflective of my full history and physical exam that was personally taken and clarified. Consequentially, this preceding description of symptoms, which may include the patient's categorized chief complaint in the EMR, do not reflect my personal clinical impression, and the ultimate description of history of present illness and patient stated complaints should be deferred to this section of the note. Unless stated otherwise or congruent with this section of the note, additional signs, symptoms, or incongruence should be interpreted as inaccurate with my clinical impression. Related Data Home Medications Medication Instructions Recorded Confirmed levothyroxine 100 mcg tablet 100 mcg PO DAILY hypothyroidism 12/22/18 06/24/23 #90 tabs tamsulosin 0.4 mg capsule 0.4 mg PO HS prostate 01/15/23 06/24/23 apixaban 5 mg tablet (Eliquis) 5 mg PO BID 01/20/23 06/24/23 allopurinol 100 mg tablet 100 mg PO DAILY 03/09/23 06/24/23 vitamins A,C,B-ndup-bscjlw 4,296 1 cap PO DAILY 03/09/23 06/24/23 mcg-226 mg-90 mg capsule (PreserVision AREDS) Previous Rx's Medication Instructions Recorded bisoprolol fumarate 10 mg tablet 10 mg PO DAILY #90 tabs 02/23/23 lidocaine 5 % topical patch 1 patch topical DAILY #15 ea 07/06/23 methocarbamol 500 mg tablet 500 mg PO Q12HP PRN muscle spasm 07/06/23 #20 tabs pravastatin 40 mg tablet See Rx Instructions .Route 07/20/23 .COMPLEX #90 tabs sacubitril 97 mg-valsartan 103 mg See Rx Instructions .Route 09/04/23 tablet (Entresto) .COMPLEX #180 tabs lidocaine 5 % topical patch 1 patch topical DAILY #30 ea 10/29/23 dexamethasone 6 mg tablet 6 mg PO DAILY #5 tabs 10/30/23 Allergies Allergy/AdvReac Type Severity Reaction Status Date / Time No Known Allergies Allergy Verified 06/24/23 10:25 [facility] Disclaimer: The information contained in this section may have been updated after the patient was seen, as this information can be updated by other users. 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) Palpitations Atrial flutter Thoracic ascending aortic aneurysm COPD (chronic obstructive pulmonary disease) Chest pain Atrial fibrillation Chronic systolic heart failure Dyspnea HLD (hyperlipidemia) HTN (hypertension) Surgical History Biventricular ICD (implantable cardioverter-defibrillator) in place Automatic implantable cardioverter-defibrillator in situ Family History Other Family history of stroke Social History Smoking Status: Never smoker alcohol intake: current substance use type: denies use current occupational status: retired Travel in the last 8 weeks: None household members: none housing: house caffeine: Yes (coffee) ROS Obtained: Yes All systems reviewed & no additional complaints except as documented Physical Exam General General appearance: alert and in no apparent distress Head Head exam: atraumatic and normocephalic Eye Eye exam: Present normal appearance, PERRL and EOMI ENT ENT exam: Present mucous membranes moist Neck Neck exam: Present normal inspection, full ROM and trachea midline Respiratory Respiratory exam: Absent respiratory distress, wheezes, stridor, accessory muscle use or prolonged expiratory phase Cardiovascular Cardiovascular exam: Present normal rhythm Abdominal Exam Abdominal exam: Present soft; Absent distention, tenderness, guarding, rebound or rigidity Extremities Exam Extremities exam: Absent edema Back Exam Back exam: Present tenderness (midline lumbar spine pain) Neurological Exam Neurological exam: Present alert, oriented X3, CN II-XII intact and normal gait; Absent motor sensory deficit Skin Skin exam: Present warm and dry; Absent diaphoresis or erythema Medical Decision Making Medical Records Medical records reviewed: Yes I reviewed the patient's medical records. Richar Inquiry Pt receiving controlled substance: No Richar was queried for this patient: No Vital Signs: 10/30/23 18:20 Temperature 97.8 F Temperature Source Oral Pulse Rate [Right Radial] 64 Respiratory Rate 20 Blood Pressure [Right Arm] 150/90 H Blood Pressure Mean [Right Arm] 110 Blood Pressure Source [Right Arm] Automatic Cuff Blood Pressure Position [Right Arm] Supine 02 Sat by Pulse Oximetry 96 Oxygen Delivery Method Room Air Orders (Tests/Meds): ED MEDICATIONS Generic Name Dose Route Start Last Admin Trade Name Freq PRN Reason Stop Dose Admin Dexamethasone 10 mg 10/30/23 18:55 Dexamethasone 4mg Tablet PO 10/30/23 18:56 ONCE ONE Methocarbamol 1,500 mg 10/30/23 18:55 Methocarbamol 500mg Tablet PO 10/30/23 18:56 ONCE ONE Medical Decision Narrative: This is an 83-year-old male with numerous comorbidities presenting with chronic back pain. States that this is the back pain he always has. It is midline, intermittently radiates around both flanks into both sides of his lower quadrants. This is been going on for days. States that he was given hydrocodone for back pain, has been taking that, states that it helps intermittently, when it wears off he gets worse. No bowel or bladder dysfunction, lower extremity deficits, hematuria, hematochezia, fevers, chills, weight loss, or any other concerns. No recent injuries or fall/injury since last spine imaging. History obtained with patient and extensive chart review. Because patient having no new symptoms, recent extensive and invasive imaging as well as workup in the last couple of days, no further workup including labs and imaging were deemed necessary, although considered. Patient ambulatory, nonfocal neurologic exam, voiding spontaneously, very well-appearing. Patient will be given Decadron, Robaxin. He states he has not been taking his Robaxin at home. Recommendations for Tylenol and Motrin as well. Patient will be given outpatient physical therapy referral due to to thoracolumbar disc herniations as well as recommendations to follow-up with Dr. Londono. Because patient at baseline without signs or symptoms of clinical decompensation, deemed appropriate for discharge. Results were relayed to patient who voiced understanding and were agreeable to outpatient management and follow up. I discussed my clinical impression with patient and answered all questions. At this time, the evidence for any other entities in the differential is insufficient to warrant any further testing or ED observation. This was explained as well. Advisory was given that persistent or worsening symptoms require further evaluation. I confirmed the understanding of this discussion. Critical Care Critical Care Time Critical Care Time: No
[2023-10-30] MEDS: METHOCARBAMOL 500MG TABLET 1500 MG PO (19:06)
[2023-10-30] MEDS: DEXAMETHASONE 4MG TABLET 10 MG PO (19:06)
[2023-10-30 20:18] VITALS: BP 134/72; PULSE 67; RESP 16; TEMP 36.6; O2SAT 97
== END 2023-10-30 20:39 | disposition home or self-care (01) ==
PROVIDERS: Emergency Provider Emergency Medicine
DX: M54.6 Pain in thoracic spine (principal); M54.50 Low back pain, unspecified; J44.9 Chronic obstructive pulmonary disease, unspecified; I11.0 Hypertensive heart disease with heart failure; I50.22 Chronic systolic (congestive) heart failure; Z95.810 Presence of automatic (implantable) cardiac defibrillator
CPT/HCPCS: 99283

== ENCOUNTER 2023-11-01 19:24 | Observation (INO) | payer MEDICARE, SELFPAY ==
[2023-11-01] VITALS (9 sets, daily range): BP systolic 91–139; BP diastolic 57–77; PULSE 84–89; RESP 18–26; TEMP 36.8; O2SAT 94–97; BMI 27.9
--- NOTE | 2023-11-01 19:30 | XR_ITS ---
PROCEDURE INFORMATION: Exam: XR Chest Exam date and time: 11/01/2023 7:47 PM Age: 83 years old Clinical indication: Pain; Additional info: Pacemaker firing TECHNIQUE: Imaging protocol: Radiologic exam of the chest. Views: 1 view. COMPARISON: CT ANGIO CHEST 10/29/2023 3:11 PM FINDINGS: Tubes, catheters and devices: Left subclavian pacemaker defibrillator in place. Two ventricular leads, and atrial lead, and an epicardial lead. Lungs: No acute cardiopulmonary findings. Pleural spaces: Unremarkable. No pleural effusion. No pneumothorax. Heart/Mediastinum: Unremarkable. No cardiomegaly. Bones/joints: Unremarkable. IMPRESSION: No acute cardiopulmonary findings.
--- NOTE | 2023-11-01 19:31 | ECG_ITS ---
APPROVED REPORT Exam: Resting ECG HR:89 bpm ECG Measurements Heart Rate 89 AXES CO 123 P 91 QRSd 178 QRS 238 QT 458 T 67 QTc 505 Conclusion ELECTRONIC VENTRICULAR PACEMAKER ABNORMAL RHYTHM ECG UNCONFIRMED REPORT Electronically signed by : JENS BOBO, 11/02/2023 02:56:19
--- NOTE | 2023-11-01 19:33 | [facility].EDCP ---
Discharge Plan Disposition Patient Disposition: Admitted Clinical Impressions Clinical Impression: Abdominal pain, Colitis, Pacemaker Discharge ED Provider: Arthur Estrella HPI General Chief Complaint: Abdominal Pain Stated Complaint: getting shocked by pacemaket Time Seen by Provider: 11/01/23 19:30 History of Present Illness HPI narrative: Patient is 83-year-old male with past medical history of multiple comorbidities including AICD who presents emergency department for multiple complaints. Patient states that his AICD has shocked him approximately 4 times today, last shock 6 PM. He does not state that he has any particular chest pain however he does not like that his AICD is shocking him. He also has acute abdominal pain that is going on since 6 PM, severe, global. Patient has had 4 episodes of nonbloody diarrhea. Per chart review patient has been seen 3 times in the last week for back pain and was appropriate for discharge at that time. Related Data Home Medications Medication Instructions Recorded Confirmed levothyroxine 100 mcg tablet 100 mcg PO DAILY hypothyroidism 12/22/18 06/24/23 #90 tabs tamsulosin 0.4 mg capsule 0.4 mg PO HS prostate 01/15/23 06/24/23 apixaban 5 mg tablet (Eliquis) 5 mg PO BID 01/20/23 06/24/23 allopurinol 100 mg tablet 100 mg PO DAILY 03/09/23 06/24/23 vitamins A,C,E-xqmb-cxlfts 4,296 1 cap PO DAILY 03/09/23 06/24/23 mcg-226 mg-90 mg capsule (PreserVision AREDS) Previous Rx's Medication Instructions Recorded bisoprolol fumarate 10 mg tablet 10 mg PO DAILY #90 tabs 02/23/23 lidocaine 5 % topical patch 1 patch topical DAILY #15 ea 07/06/23 methocarbamol 500 mg tablet 500 mg PO Q12HP PRN muscle spasm 07/06/23 #20 tabs pravastatin 40 mg tablet See Rx Instructions .Route 07/20/23 .COMPLEX #90 tabs sacubitril 97 mg-valsartan 103 mg See Rx Instructions .Route 09/04/23 tablet (Entresto) .COMPLEX #180 tabs lidocaine 5 % topical patch 1 patch topical DAILY #30 ea 10/29/23 dexamethasone 6 mg tablet 6 mg PO DAILY #5 tabs 10/30/23 Allergies Allergy/AdvReac Type Severity Reaction Status Date / Time No Known Allergies Allergy Verified 06/24/23 10:25 [facility] Disclaimer: The information contained in this section may have been updated after the patient was seen, as this information can be updated by other users. 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) Palpitations Atrial flutter Thoracic ascending aortic aneurysm COPD (chronic obstructive pulmonary disease) Chest pain Atrial fibrillation Chronic systolic heart failure Dyspnea HLD (hyperlipidemia) HTN (hypertension) Surgical History Biventricular ICD (implantable cardioverter-defibrillator) in place Automatic implantable cardioverter-defibrillator in situ Family History Other Family history of stroke Social History Smoking Status: Never smoker alcohol intake: current substance use type: denies use current occupational status: retired Travel in the last 8 weeks: None household members: none housing: house caffeine: Yes (coffee) ROS Obtained: Yes Systems reviewed as appropriate & no additional complaints except as documented Physical Exam General General appearance: alert and in no apparent distress Head Head exam: atraumatic and normocephalic Eye Eye exam: Present PERRL and EOMI ENT ENT exam: Present mucous membranes moist Neck Neck exam: Present normal inspection Chest Chest inspection: Present normal inspection and symmetric chest wall rise Respiratory Respiratory exam: Present normal lung sounds bilaterally; Absent respiratory distress Cardiovascular Cardiovascular exam: Present regular rate and normal rhythm Abdominal Exam Abdominal exam: Present soft, tenderness (Diffuse) and guarding (Voluntary) Extremities Exam Extremities exam: Present normal inspection Neurological Exam Neurological exam: Present alert Psychiatric Psychiatric exam: Present normal affect Skin Skin exam: Present warm and dry HEART Score HEART Score HEART Score assessment performed?: Yes History (anamnesis): Slightly suspicious ECG: Non-specific disturbance Age: >65 years Risk factors: Atherosclerosis history Troponin: </= normal limit HEART Score: 5 Critical Care Critical Care Time Critical Care Time: No Medical Decision Making Richar Inquiry Pt receiving controlled substance: No Vital Signs Vital Signs: 11/01/23 19:24 11/01/23 19:31 11/01/23 20:00 Temperature 98.3 F Temperature Source Oral Pulse Rate 87 86 Pulse Rate [Left Radial] 89 Respiratory Rate 18 19 18 Blood Pressure 135/73 128/75 Blood Pressure [Right Arm] 139/77 Blood Pressure Mean [Right Arm] 97 Blood Pressure Source [Right Arm] Automatic Cuff Blood Pressure Position [Right Arm] Sitting 02 Sat by Pulse Oximetry 97 94 L 95 Oxygen Delivery Method Room Air 11/01/23 20:30 11/01/23 21:00 11/01/23 21:30 Temperature Temperature Source Pulse Rate 87 88 Pulse Rate [Left Radial] Respiratory Rate 24 26 H 20 Blood Pressure 120/69 106/63 L 111/71 Blood Pressure [Right Arm] Blood Pressure Mean [Right Arm] Blood Pressure Source [Right Arm] Blood Pressure Position [Right Arm] 02 Sat by Pulse Oximetry 95 95 Oxygen Delivery Method 11/01/23 22:00 11/01/23 22:30 11/01/23 22:47 Temperature 98.3 F Temperature Source Oral Pulse Rate 89 84 89 Pulse Rate [Left Radial] Respiratory Rate 24 23 22 Blood Pressure 103/64 L 91/57 L 103/64 L Blood Pressure [Right Arm] Blood Pressure Mean [Right Arm] Blood Pressure Source [Right Arm] Blood Pressure Position [Right Arm] 02 Sat by Pulse Oximetry 95 95 Oxygen Delivery Method Lab Data Labs: Lab Results 11/01/23 19:36: WBC 29.9 H*, RBC 4.48 L, Hgb 15.1, Hct 45.7, MCV 102.0 H, MCH 33.8 H, MCHC 33.1, RDW 14.9, Plt Count 248, MPV 8.1, Neut % (Auto) 95.9 H, Lymph % (Auto) 1.3 L, [place] % (Auto) 2.3, Eos % (Auto) 0.1, Baso % (Auto) 0.4, Neut # (Auto) 28.7 H, Lymph # (Auto) 0.4 L, [place] # (Auto) 0.7, Eos # (Auto) 0.0, Baso # (Auto) 0.1, Total Counted 100, Neutrophils % (Manual) 94 H, Band Neutrophils % 1.0, Lymphocytes % (Manual) 5 L, Platelet Estimate Normal, Macrocytosis 1+, Sodium 134 L, Potassium 4.0, Chloride 99, Carbon Dioxide 22, Anion Gap 17.0 H, BUN 36 H, Creatinine 1.10, Estimated Creat Clear 63, Estimated GFR 64, Est GFR ( Amer) 77, Glucose 171 H, Lactate 2.7 H, Calcium 9.3, Total Bilirubin 1.4 H, AST 49, ALT 33, Alkaline Phosphatase 155 H, Troponin I < 0.01, Total Protein 7.1, Albumin 4.0, Globulin 3.1, Albumin/Globulin Ratio 1.3, Lipase 43 11/01/23 21:30: Urine Color Yellow, Urine Appearance Clear, Urine pH 6.0, Ur Specific [place] 1.010, Urine Protein Trace, Urine Glucose (UA) Negative, Urine Ketones Negative, Urine Blood Trace-i, Urine Nitrate Negative, Urine Bilirubin Negative, Urine Urobilinogen 0.2, Ur Leukocyte Esterase Negative, Urine RBC None, Urine WBC None, Ur Squamous Epith Cells Occasional, Urine Bacteria Trace 11/01/23 19:36 11/01/23 19:36 Response Orders (Tests/Meds): ED MEDICATIONS Generic Name Dose Route Start Last Admin Trade Name Freq PRN Reason Stop Dose Admin Acetaminophen 650 mg 11/01/23 22:23 Acetaminophen 325mg Tab PO 12/01/23 22:22 Q4HP PRN Fever or Mild Pain (1-3) Piperacillin Sod/Tazobactam 50 mls @ 100 mls/hr 11/01/23 22:00 11/01/23 22:08 Sod 3.375 gm/ Sodium Chloride IV 11/11/23 21:59 100 mls/hr Q6H JED Administration Sodium Chloride 1,000 mls @ 50 mls/hr 11/01/23 22:30 11/01/23 23:48 Sod Chlor 0.9% 1000ml Bag IV 12/01/23 22:29 50 mls/hr .Q20H JED Administration Morphine Sulfate 2 mg 11/01/23 22:23 Morphine 2mg/Ml Syringe IV 12/01/23 22:22 Q2HP PRN Severe Pain (7-10) Nicotine 21 mg 11/01/23 22:23 Nicotine 21mg/24hr Patch TD 12/01/23 22:22 DAILYP PRN Nicotine Cravings Ondansetron HCl 4 mg 11/01/23 22:23 Ondansetron 4mg/2ml Vial IV 12/01/23 22:22 Q8HP PRN Nausea Pantoprazole Sodium 40 mg 11/02/23 09:00 Pantoprazole 40mg Tablet PO 12/02/23 08:59 DAILY JED Sodium Chloride 10 ml 11/01/23 19:49 11/01/23 19:51 Sodium Chloride 0.9% 10ml Syr (Rad Only) IV 12/01/23 19:48 10 ml NEEDED PRN Administration Maintain IV Site Discontinued Medications Generic Name Dose Route Start Last Admin Trade Name Freq PRN Reason Stop Dose Admin Lactated Ringer's 1,000 mls @ 999 mls/hr 11/01/23 22:00 11/01/23 22:08 Lactated Ringer's 1000 Ml Bag IV 11/01/23 23:00 999 mls/hr .Q1H1M ONE Administration Iopamidol 75 ml 11/01/23 19:49 11/01/23 19:50 Iopamidol-370 (76%);100ml Bottle IV 11/01/23 19:50 75 ml ONCE ONE Administration Morphine Sulfate 4 mg 11/01/23 19:32 11/01/23 19:44 Morphine 4mg/Ml Syringe IV 11/01/23 19:33 4 mg ONCE ONE Administration ORDERS Category Date Time Status CT abdomen pelvis w con Stat Cat Scan 11/01/23 19:34 Completed Cardiology Consult [Consult to Cardiology] [CONS] Cons 11/01/23 22:23 Active Routine Surgery Consult (on-call) [Consult to On-Call Gen'l Cons 11/01/23 22:26 Ordered Surgeon] [CONS] Routine CXR --portable [XR chest portable] Stat Exams 11/01/23 19:30 Completed CBC w/Auto Diff [Complete Blood Count Auto Diff] Stat Lab 11/01/23 19:36 Completed CMP [Comprehensive Metabolic Panel] Stat Lab 11/01/23 19:36 Completed Complete Blood Count Auto Diff AMLAB Lab 11/02/23 06:00 Ordered Comprehensive Metabolic Panel AMLAB Lab 11/02/23 06:00 Ordered Lactic Acid Stat Lab 11/01/23 19:36 Completed Lipase Stat Lab 11/01/23 19:36 Completed Magnesium AMLAB Lab 11/02/23 06:00 Ordered Trop I [Troponin I] Stat Lab 11/01/23 19:36 Completed Troponin I Q3H Lab 11/01/23 22:45 Ordered Troponin I Q3H Lab 11/02/23 01:45 Ordered UA [Urinalysis and Microscopic] Stat Lab 11/01/23 21:30 Completed Blood Culture Stat Micro 11/01/23 20:48 Received EKG Request [ECG Request] Stat Y 11/01/23 19:30 Ordered ECG Data Tracing #1: ECG Narrative: Independently interpreted by me, rate is regular, V paced, Sgarbossa negative, QTc 505. MDM Narrative Medical Decision Narrative: In summary patient is 83-year-old male with past medical history described above who presents emergency department for evaluation of abdominal pain, pacemaker firing. Patient is hemodynamically stable nontoxic-appearing upon arrival, significant abdominal pain and tenderness to palpation. Differential includes intra-abdominal process, ruptured hollow viscus, appropriate versus inappropriate pacemaker firing, secondary gain, among others. Workup will be conducted with CT abdomen pelvis IV contrast, hematologic labs, urinalysis. Workup will also be conducted with chest x-ray, EKG, single troponin. Pacemaker will require interrogation at some point however patient has no ongoing shocks. Workup reviewed by me, hematologic labs remarkable for significant leukocytosis, no anemia,, elevated lactate which be resuscitated with crystalloid. Urinalysis interpreted by me and not consistent with infection. CT imaging are markable for transverse and descending colitis, left inguinal hernia contains transverse colon without evidence of obstruction. Given his significant white count patient will be started on Zosyn empirically after blood cultures were obtained. The case was discussed with hospital medicine and patient will be admitted to their service for continued evaluation at this time. With respect to pacemaker shocks given no ongoing shocks and hemodynamically stable with appropriate V paced rhythm the patient could be evaluated by cardiology in the a.m.
--- NOTE | 2023-11-01 19:34 | CT_ITS ---
PROCEDURE INFORMATION: Exam: CT Abdomen And Pelvis With Contrast Exam date and time: 11/01/2023 7:51 PM Age: 83 years old Clinical indication: Abdominal pain; Additional info: Severe pain TECHNIQUE: Imaging protocol: Computed tomography of the abdomen and pelvis with contrast. Radiation optimization: All CT scans at this facility use at least one of these dose optimization techniques: automated exposure control; mA and/or kV adjustment per patient size (includes targeted exams where dose is matched to clinical indication); or iterative reconstruction. Contrast material: ISOVUE; Contrast volume: 75 ml; Contrast route: IV; COMPARISON: CT ANGIO ABDOMEN PELVIS 10/29/2023 3:11 PM FINDINGS: Tubes, catheters and devices: None noted. Lungs: Lung bases appear clear. Heart: Pacemaker in place. No significant coronary calcifications. Moderate cardiomegaly. Small pericardial effusion. Liver: Normal. No mass. Gallbladder and bile ducts: Normal. No calcified stones. No ductal dilation. Pancreas: Normal. No ductal dilation. Spleen: Normal. No splenomegaly. Adrenal glands: Normal. No mass. Kidneys and ureters: Bilateral renal cysts. No hydronephrosis. Stomach and bowel: Transverse and descending colitis. No obstruction. Appendix: No evidence of appendicitis. Intraperitoneal space: Unremarkable. No free air. No significant fluid collection. Retroperitoneal space: No significant retroperitoneal inflammatory changes are noted. Vasculature: Unremarkable. No abdominal aortic aneurysm. Lymph nodes: Unremarkable. No enlarged lymph nodes. Urinary bladder: Unremarkable as visualized. Reproductive: Unremarkable as visualized. Bones/joints: Unremarkable. No acute fracture. Soft tissues: Left inguinal hernia contains colon. IMPRESSION: 1. Transverse and descending colitis. 2. Left inguinal hernia contains transverse colon without obstruction. COMMENTS: Consistent with the [employer]'s Incidental Findings Committee white paper (J Am Kumar Radiol 2018): Any incidental renal lesion less than 1 cm or classified as too small to characterize, or any incidental cystic renal lesion characterized as simple-appearing, is likely benign. No follow-up imaging is recommended for these lesions per consensus recommendations based on imaging criteria.
[2023-11-01] MEDS: MORPHINE 4MG/ML SYRINGE 4 MG IV (19:44)
--- NOTE | 2023-11-01 19:47 | PC.NURSE ---
patient to CT scan
[2023-11-01] MEDS: IOPAMIDOL-370 (76%);100ML BOTTLE 75 ML IV (19:50)
[2023-11-01] MEDS: SODIUM CHLORIDE 0.9% 10ML SYR (RAD ONLY) 10 ML IV (19:51)
[2023-11-01 19:55] LABS: Basophils # 0.1 K/mm3 (0-0.2); Basophils % 0.4 % (0.1-2.0); Eosinophils % 0.1 % (0.1-12.0); Hematocrit 45.7 % (42.0-52.0); Hemoglobin 15.1 g/dL (14.1-18.0); Lymphocytes # 0.4 K/mm3 (0.7-4.5); Lymphocytes % 1.3 % (10-50); Mean Corpuscular HGB Conc 33.1 g/dL (31.8-35.4); Mean Corpuscular Hemoglobin 33.8 pg (27.0-31.2); Mean Platelet Volume 8.1 fl (7.4-10.4); Monocytes # 0.7 K/mm3 (0.1-1.0); Monocytes % 2.3 % (1.7-9.3); Neutrophils # 28.7 K/mm3 (1.8-7.8); Neutrophils % 95.9 % (37.0-80.0); Platelet Count 248 K/mm3 (142-424); Red Blood Count 4.48 M/mm3 (4.60-6.20); Red Cell Distribution Width 14.9 % (11.5-17.5); White Blood Count 29.9 K/mm3 (4.8-10.8)
[2023-11-01 19:56] LABS: MANUAL DIFFERENTIAL MANUAL DIFFERENTIAL (MANUAL DIFF)
[2023-11-01 20:05] LABS: Chloride 99 mmol/L (98-107); Sodium 134 mmol/L (136-145)
--- NOTE | 2023-11-01 20:05 | PC.NURSE ---
Interrogated [employer] ICD/PM, awaiting report.
[2023-11-01 20:08] LABS: Alanine Aminotransferase 33 U/L (12-78); Albumin/Globulin Ratio 1.3 (1.1-1.8); Alkaline Phosphatase 155 U/L (38-126); Aspartate Amino Transferase 49 U/L (17-59); Bilirubin,Total 1.4 mg/dl (0.2-1.3); Blood Urea Nitrogen 36 mg/dl (9-20); Calcium 9.3 mg/dl (8.4-10.2); Carbon Dioxide 22 mmol/L (22.0-30.0); Creatinine Clearance Estimated 63 mL/min (50-200); Estimated Glomerular Filt Rate 64 ml/min (>60); GFR (African American) 77 ML/MIN (>60); Globulin 3.1 g/dL (1.3-3.2); Glucose 171 mg/dl (74-100); Lactic Acid 2.7 mmol/L (0.7-2.1); Lipase 43 U/L (23-300); Total Protein,Serum 7.1 g/dl (6.3-8.2)
[2023-11-01 20:10] LABS: Lymphocytes % 5 % (10-50); Macrocytosis 1+; Neutrophils % 94 % (42-76); Platelet Estimate Normal; Total Cells Counted 100
[2023-11-01 20:21] LABS: Troponin I < 0.01 ng/ml (0.00-0.034)
[2023-11-01 21:31] LABS: Microscopic, Urine URINE MICROSCOPIC (MICROSCOPIC)
[2023-11-01 21:37] LABS: Appearance,Urine CLEAR (Clear); Bilirubin,Urine Negative (Negative); Blood, Urine TRACE-I (Negative); Color,Urine YELLOW (Yellow); Glucose,Urine (UA) Negative (Negative); Ketones,Urine Negative (Negative); Leukocyte Esterase,Urine Negative (Negative); Nitrate,Urine Negative (Negative); Protein,Urine TRACE (Negative); Urobilinogen,Urine 0.2 EU/dl (0.2)
[2023-11-01 22:00] LABS: Bacteria,Urine Trace /lpf; Squamous Epithelial Cell,Urine Occasional #/hpf (0-5)
--- NOTE | 2023-11-01 22:02 | PC.NURSE ---
on phone with hospitalist
[2023-11-01] MEDS: PIPERACILLIN/TAZO 3.375 GM in 0.9 % SODIUM CHLORIDE 50 ML IV (22:08)
[2023-11-01] MEDS: LACTATED RINGERS 1000ML 1,000 ML 999 ML IV (22:08)
--- NOTE | 2023-11-01 22:22 | EXP.HP ---
History of Present Illness *Admission Date: 11/01/23 *Reason for visit:: abd pain *History of present illness: This is a 83-year-old male with PMHx of multiple comorbidities including AICD in place, who presents emergency department for multiple complaints. Main complaint is acute abdominal pain that is going on since 6 PM, severe, global, with 4 episodes of nonbloody diarrhea. Patient has been seen 3 times in the last week for back pain and discharged home. Patient states that his AICD has shocked him approximately 4 times today, last shock 6 PM. He does not state that he has any particular chest pain however he does not like that his AICD is shocking him. Admitted for further work up. [facility] Disclaimer: The information contained in this section may have been updated after the patient was seen, as this information can be updated by other users. 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) Palpitations Atrial flutter Thoracic ascending aortic aneurysm COPD (chronic obstructive pulmonary disease) Chest pain Atrial fibrillation Chronic systolic heart failure Dyspnea HLD (hyperlipidemia) HTN (hypertension) Surgical History Biventricular ICD (implantable cardioverter-defibrillator) in place Automatic implantable cardioverter-defibrillator in situ Family History Other Family history of stroke Social History (Updated 11/02/23 @ 02:56 by Georgia Barroso RN) Smoking Status: Former smoker how long ago did patient quit smokin years ago alcohol intake: never substance use type: denies use current occupational status: retired Travel in the last 8 weeks: None household members: none housing: house caffeine: Yes (coffee) Review of Systems Review of Systems Review of systems:: pertinent systems reviewed and negative unless documented below Meds Home Medications and Allergies Home Medications Medication Instructions Recorded Confirmed Type levothyroxine 100 mcg tablet 100 mcg PO DAILY #90 tabs 12/22/18 11/02/23 History tamsulosin 0.4 mg capsule 0.4 mg PO HS 01/15/23 11/02/23 History apixaban 5 mg tablet (Eliquis) 5 mg PO BID 01/20/23 11/02/23 History bisoprolol fumarate 10 mg tablet 10 mg PO DAILY #90 tabs 02/23/23 11/02/23 Rx allopurinol 100 mg tablet 100 mg PO DAILY 03/09/23 11/02/23 History vitamins A,C,H-rfpy-lbdase 4,296 1 cap PO DAILY 03/09/23 11/02/23 History mcg-226 mg-90 mg capsule (PreserVision AREDS) methocarbamol 500 mg tablet 500 mg PO Q12HP PRN muscle spasm 07/06/23 11/02/23 Rx #20 tabs lidocaine 5 % topical patch 1 patch topical DAILY #30 ea 10/29/23 11/02/23 Rx dexamethasone 6 mg tablet 6 mg PO DAILY #5 tabs 10/30/23 11/02/23 Rx fluticasone fur. 100 mcg-umeclid 2 inh inhalation DAILY 11/02/23 11/02/23 History 62.5 mcg-vilant 25 mcg inhalat.powder (Trelegy Ellipta) pravastatin 40 mg tablet 40 mg PO DAILY 11/02/23 11/02/23 History sacubitril 97 mg-valsartan 103 mg 1 tab PO BID 11/02/23 11/02/23 History tablet (Entresto) New Prescriptions to Start Prescriptions: Allergies Allergy/AdvReac Type Severity Reaction Status Date / Time No Known Allergies Allergy Verified 06/24/23 10:25 Exam Data for Last 24 hours Vital signs and Labs for Last 24 Hours: Temp Pulse Resp BP Pulse Ox O2 Del Method 98.3 F 89 18 139/77 97 Room Air 11/01/23 19:24 11/01/23 19:24 11/01/23 19:24 11/01/23 19:24 11/01/23 19:24 11/01/23 19:24 Laboratory Results - last 24 hr 11/01/23 19:36: WBC 29.9 H*, RBC 4.48 L, Hgb 15.1, Hct 45.7, MCV 102.0 H, MCH 33.8 H, MCHC 33.1, RDW 14.9, Plt Count 248, MPV 8.1, Neut % (Auto) 95.9 H, Lymph % (Auto) 1.3 L, [place] % (Auto) 2.3, Eos % (Auto) 0.1, Baso % (Auto) 0.4, Neut # (Auto) 28.7 H, Lymph # (Auto) 0.4 L, [place] # (Auto) 0.7, Eos # (Auto) 0.0, Baso # (Auto) 0.1, Total Counted 100, Neutrophils % (Manual) 94 H, Band Neutrophils % 1.0, Lymphocytes % (Manual) 5 L, Platelet Estimate Normal, Macrocytosis 1+, Sodium 134 L, Potassium 4.0, Chloride 99, Carbon Dioxide 22, Anion Gap 17.0 H, BUN 36 H, Creatinine 1.10, Estimated Creat Clear 63, Estimated GFR 64, Est GFR ( Amer) 77, Glucose 171 H, Lactate 2.7 H, Calcium 9.3, Total Bilirubin 1.4 H, AST 49, ALT 33, Alkaline Phosphatase 155 H, Troponin I < 0.01, Total Protein 7.1, Albumin 4.0, Globulin 3.1, Albumin/Globulin Ratio 1.3, Lipase 43 11/01/23 21:30: Urine Color Yellow, Urine Appearance Clear, Urine pH 6.0, Ur Specific [place] 1.010, Urine Protein Trace, Urine Glucose (UA) Negative, Urine Ketones Negative, Urine Blood Trace-i, Urine Nitrate Negative, Urine Bilirubin Negative, Urine Urobilinogen 0.2, Ur Leukocyte Esterase Negative, Urine RBC None, Urine WBC None, Ur Squamous Epith Cells Occasional, Urine Bacteria Trace Temp Pulse Resp BP Pulse Ox 98.2 F 103 H 21 116/74 96 01/15/23 10:38 01/15/23 10:40 01/15/23 10:40 01/15/23 10:40 01/15/23 10:40 Laboratory Results - last 24 hr 01/15/23 08:34: WBC 21.9 H*, RBC 4.59 L, Hgb 14.5, Hct 44.9, MCV 97.8 H, MCH 31.5 H, MCHC 32.2, RDW 13.7, Plt Count 226, MPV 8.8, Neut % (Auto) 84.1 H, Lymph % (Auto) 11.1, [place] % (Auto) 4.3, Eos % (Auto) 0.2, Baso % (Auto) 0.2, Neut # (Auto) 18.4 H, Lymph # (Auto) 2.4, [place] # (Auto) 1.0, Eos # (Auto) 0.0, Baso # (Auto) 0.1, Total Counted 100, Neutrophils % (Manual) 84 H, Lymphocytes % (Manual) 12, Monocytes % (Manual) 4, Platelet Estimate Normal, RBC Morphology Normal, Sodium 138, Potassium 3.4 L, Chloride 104, Carbon Dioxide 21 L, Anion Gap 16.4 H, BUN 23 H, Creatinine 1.20, Estimated GFR 58 L, Est GFR ( Amer) 70, Glucose 163 H, Lactate 2.7 H, Calcium 8.8, Total Bilirubin 1.5 H, AST 35, ALT 32, Alkaline Phosphatase 148 H, Total Protein 6.6, Albumin 4.1, Globulin 2.5, Albumin/Globulin Ratio 1.6, Procalcitonin 0.157 01/15/23 08:38: Troponin I < 0.01 01/15/23 08:43: Specimen Source Right brachial, O2 % 3 lpm, ABG pH 7.41, ABG pCO2 29.7 L, ABG pO2 87.6, ABG HCO3 18.4 L, ABG Total CO2 19.3 L, ABG O2 Saturation 97, ABG Base Excess -6.2 L, Steven Test N/a 01/15/23 09:02: SARS-CoV-2 (PCR) Not detected, Influenza A Untype (PCR) Not detected, Influenza Type B (PCR) Not detected I & O for Last 24 hours: Intake & Output 10/29/23 10/30/23 10/31/23 11/01/23 23:59 23:59 23:59 23:59 Weight 88.451 kg Intake & Output 01/12/23 01/13/23 01/14/23 01/15/23 23:59 23:59 23:59 23:59 Intake Total 924.69 / 924.69 Balance 924.69 / 924.69 Weight 98.883 kg Constitutional Constitutional: mild distress, chronically ill appearing and cooperative *Routine HEENT Exam Head: Present normocephalic Eye: Present EOMI ENT: Present mucous membranes moist *Routine Neck Exam Neck: Present full ROM *Routine Respiratory Exam Respiratory: Present accessory muscle use, prolonged expiratory phase and crackles; Absent rhonchi or wheezes *Routine Cardiovascular Exam Cardiovascular: Present tachycardia and irregularly irregular *Routine Abdominal Exam Abdominal: Present soft, normoactive bowel sounds, tenderness and guarding *Routine Rectal Exam Rectal:: deferred *Routine Genitalia Exam Genitalia:: deferred *Routine Extremities Exam Extremities: Absent cyanosis, clubbing or edema Comments: Numerous tattoos *Routine Skin Exam Skin: Present intact and dry; Absent erythema Comments: Numerous tattoos on forearms and hands. *Routine Neurological Exam Neurological: Present alert, oriented X3, CN II-XII intact and moving all extremities; Absent altered mental status Routine Psychiatric Exam Psychiatric: Present normal affect and normal thought process H&P: Result Imaging and Cardiology EKG: Status: image reviewed by me, Preliminary report and final report CT scan - abdomen: Status: image reviewed by me, Preliminary report and final report Assessment and Plan *Assessment and plan (1) Abdominal pain: Status: Acute Qualifiers: Abdominal location: unspecified location Qualified Code(s): R10.9 - Unspecified abdominal pain Category: Medical Code(s): R10.9 - Unspecified abdominal pain (2) Colitis: Status: Acute Category: Medical Code(s): K52.9 - Noninfective gastroenteritis and colitis, unspecified (3) Hypertension: Status: Acute Qualifiers: Hypertension type: unspecified Qualified Code(s): I10 - Essential (primary) hypertension Category: Medical Code(s): I10 - Essential (primary) hypertension (4) Hyperlipidemia: Status: Acute Qualifiers: Hyperlipidemia type: unspecified Qualified Code(s): E78.5 - Hyperlipidemia, unspecified Category: Medical Code(s): E78.5 - Hyperlipidemia, unspecified (5) Hypothyroidism: Status: Chronic Qualifiers: Hypothyroidism type: acquired Qualified Code(s): E03.9 - Hypothyroidism, unspecified Category: Medical Code(s): E03.9 - Hypothyroidism, unspecified (6) COPD (chronic obstructive pulmonary disease): Status: Acute Qualifiers: COPD type: unspecified COPD Qualified Code(s): J44.9 - Chronic obstructive pulmonary disease, unspecified Category: Medical Code(s): J44.9 - Chronic obstructive pulmonary disease, unspecified (7) Biventricular ICD (implantable cardioverter-defibrillator) in place: Status: Acute Category: Surgical Code(s): Z95.810 - Presence of automatic (implantable) cardiac defibrillator Plan 83-year-old male with PMHx of multiple comorbidities including AICD in place, who presents emergency department for multiple complaints. Main complaint is acute abdominal pain that is going on since 6 PM, severe, global, with 4 episodes of nonbloody diarrhea. also c/o AICD has been active recently with 4 shock prior to admission. On arrival initial work up consistent with significant leukocytosis, no anemia,, elevated lactate which be resuscitated with crystalloid. Urinalysis grossly -negative for infection. CT imaging are markable for transverse and descending colitis, left inguinal hernia contains transverse colon without evidence of obstruction. Findings discussed with ED. Agreed for admission: -Acute abdominal pain likely secondary to descending colitis: Will review leukocytosis: Elevated lactic acidosis Admit patient for medical services. Dispo MedSurg Started on Zosyn Q8 Surgical consult appreciated their intake Pain management. Tylenol and morphine as needed Repeat lactic acidosis Sepsis bolus given at the ER. Continue gentle fluid hydration Keep n.p.o.. Zofran for nausea as needed -Other chronic conditions: Hypertension hyperlipidemia hypothyroidism and COPD:\ Condition reviewed and seems to be stable at this point Resume home regimen patient on Synthroid 100 mcg Entresto, bisoprolol Optimize O2 saturation. -Biventricular ICD in place: Interrogation reviewed from October 28. No apparently event since May 2023 Work referred to cardiology for full revision of the interrogated Continue site monitor Monitor for chest pain and arrhythmia Resume Eliquis On Protonix for GI bleed protection Full code Attending attestation Patient was seen and evaluated at the bedside myself, agree with YIFAN note.
[2023-11-01 23:48] LABS: Reflex Lactic Add Lactic Reflex
[2023-11-01] MEDS: 0.9 % SODIUM CHLORIDE 1000ML 1,000 ML 50 ML IV (23:48)
[2023-11-02] VITALS: BP 92/54; PULSE 88; RESP 23; TEMP 37; O2SAT 94; BMI 27.3
[2023-11-02 00:42] LABS: Lactic Acid Follow Up (RFLX 1) 2.4 mmol/L (0.7-2.1)
[2023-11-02] MEDS: MORPHINE 2MG/ML SYRINGE 2 MG IV ×2 (00:45→08:24)
[2023-11-02 01:00] LABS: Troponin I < 0.01 ng/ml (0.00-0.034)
[2023-11-02 02:28] LABS: Reflex Lactic (2 hrs) Add Lactic Reflex
[2023-11-02 02:37] LABS: Lactic Acid Follow up (RFLX 2) 1.5 mmol/L (0.7-2.1)
[2023-11-02 03:24] LABS: Troponin I < 0.01 ng/ml (0.00-0.034)
[2023-11-02 04:00] VITALS: BP 84/57; PULSE 89; RESP 20; TEMP 36.4; O2SAT 96; BMI 27.3
[2023-11-02] MEDS: PIPERACILLIN/TAZO 3.375 GM in 0.9 % SODIUM CHLORIDE 50 ML IV ×2 (05:35→10:59)
[2023-11-02 07:01] LABS: Basophils # 0.1 K/mm3 (0-0.2); Basophils % 0.3 % (0.1-2.0); Eosinophils % 0.1 % (0.1-12.0); Lymphocytes # 1.4 K/mm3 (0.7-4.5); Monocytes # 0.7 K/mm3 (0.1-1.0)
--- NOTE | 2023-11-02 07:05 | P.CONS_ITS ---
History of Present Illness *Admission Date: 11/01/23 *Reason for visit:: Abdominal pain. Colitis. *History of present illness: Patient is an 83-year-old male with numerous comorbidities including history of aortic regurgitation, atrial fibrillation with previous AV node ablation, ischemic cardiomyopathy, congestive heart failure (Previous documented EF 20%), hypertension, COPD, hyperlipidemia, thoracic ascending aortic aneurysm, AICD placement, on Eliquis. He has previously been evaluated at [facility] regarding his thoracic aortic aneurysm. He has been evaluated in the emergency department on 10/27/2023, 10/29/2023, and 10/30/2023 and managed as an outpatient mainly for back pain. His workup has included a CT angiogram of the chest which reveals thoracic aortic aneurysm. On 10/29/[address] angiogram of the abdomen and pelvis which revealed simple and complex renal cysts, large amount of retained stool within the colon, fat-containing left inguinal hernia. He had return to the emergency department in the evening of 11/01/2023 with multiple complaints including that his AICD had shocked him approximately 4 times. He described diffuse severe acute abdominal pain. He also had some nonbloody diarrhea. He was found to have a leukocytosis of 30,000. Lactate of 2.7. BUN of 36 with a creatinine of 1.1. He underwent CT scan of the abdomen and pelvis which revealed findings of transverse and descending colitis with left inguinal hernia containing transverse colon without obstruction. He was admitted for inpatient management to the hospitalist service. Apparently surgical consultation was ordered to evaluate abdominal pain and colitis as the patient appeared on the surgical rounds list. He describes ongoing pain. He rates it as an 11.5 out of 10. [facility] Disclaimer: The information contained in this section may have been updated after the patient was seen, as this information can be updated by other users. 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) Palpitations Atrial flutter Thoracic ascending aortic aneurysm COPD (chronic obstructive pulmonary disease) Chest pain Atrial fibrillation Chronic systolic heart failure Dyspnea HLD (hyperlipidemia) HTN (hypertension) Surgical History Biventricular ICD (implantable cardioverter-defibrillator) in place Automatic implantable cardioverter-defibrillator in situ Family History Other Family history of stroke Social History (Updated 11/02/23 @ 02:56 by Georgia Barroso RN) Smoking Status: Former smoker tobacco type: cigarettes packs per day: 1 how long ago did patient quit smokin years ago alcohol intake: never substance use type: denies use current occupational status: retired Travel in the last 8 weeks: None household members: none housing: house caffeine: Yes (coffee) Meds Home Medications and Allergies Home Medications Medication Instructions Recorded Confirmed Type levothyroxine 100 mcg tablet 100 mcg PO DAILY #90 tabs 12/22/18 11/02/23 History tamsulosin 0.4 mg capsule 0.4 mg PO HS 01/15/23 11/02/23 History apixaban 5 mg tablet (Eliquis) 5 mg PO BID 01/20/23 11/02/23 History bisoprolol fumarate 10 mg tablet 10 mg PO DAILY #90 tabs 02/23/23 11/02/23 Rx allopurinol 100 mg tablet 100 mg PO DAILY 03/09/23 11/02/23 History vitamins A,C,Z-ybfb-buixmk 4,296 1 cap PO DAILY 03/09/23 11/02/23 History mcg-226 mg-90 mg capsule (PreserVision AREDS) methocarbamol 500 mg tablet 500 mg PO Q12HP PRN muscle spasm 07/06/23 11/02/23 Rx #20 tabs lidocaine 5 % topical patch 1 patch topical DAILY #30 ea 10/29/23 11/02/23 Rx dexamethasone 6 mg tablet 6 mg PO DAILY #5 tabs 10/30/23 11/02/23 Rx fluticasone fur. 100 mcg-umeclid 2 inh inhalation DAILY 11/02/23 11/02/23 History 62.5 mcg-vilant 25 mcg inhalat.powder (Trelegy Ellipta) pravastatin 40 mg tablet 40 mg PO DAILY 11/02/23 11/02/23 History sacubitril 97 mg-valsartan 103 mg 1 tab PO BID 11/02/23 11/02/23 History tablet (Entresto) New Prescriptions to Start Prescriptions: Allergies Allergy/AdvReac Type Severity Reaction Status Date / Time No Known Allergies Allergy Verified 06/24/23 10:25 Exam (Inpt) Vital signs and Labs for Last 24 Hours: Temp Pulse Resp BP Pulse Ox O2 Del Method 97.5 F L 89 20 84/57 L 96 Room Air 11/02/23 04:00 11/02/23 04:00 11/02/23 04:00 11/02/23 04:00 11/02/23 04:00 11/02/23 07:00 Laboratory Results - last 24 hr 11/01/23 19:36: WBC 29.9 H*, RBC 4.48 L, Hgb 15.1, Hct 45.7, MCV 102.0 H, MCH 33.8 H, MCHC 33.1, RDW 14.9, Plt Count 248, MPV 8.1, Neut % (Auto) 95.9 H, Lymph % (Auto) 1.3 L, [place] % (Auto) 2.3, Eos % (Auto) 0.1, Baso % (Auto) 0.4, Neut # (Auto) 28.7 H, Lymph # (Auto) 0.4 L, [place] # (Auto) 0.7, Eos # (Auto) 0.0, Baso # (Auto) 0.1, Total Counted 100, Neutrophils % (Manual) 94 H, Band Neutrophils % 1.0, Lymphocytes % (Manual) 5 L, Platelet Estimate Normal, Macrocytosis 1+, S odium 134 L, Potassium 4.0, Chloride 99, Carbon Dioxide 22, Anion Gap 17.0 H, B UN 36 H, Creatinine 1.10, Estimated Creat Clear 63, Estimated GFR 64, Est GFR ( Amer) 77, Glucose 171 H, Lactate 2.7 H, Calcium 9.3, Total Bilirubin 1.4 H, AST 49, ALT 33, Alkaline Phosphatase 155 H, Troponin I < 0.01, Total Protein 7.1, Albumin 4.0, Globulin 3.1, Albumin/Globulin Ratio 1.3, Lipase 43 11/01/23 21:30: Urine Color Yellow, Urine Appearance Clear, Urine pH 6.0, Ur Specific [place] 1.010, Urine Protein Trace, Urine Glucose (UA) Negative, Urine Ketones Negative, Urine Blood Trace-i, Urine Nitrate Negative, Urine Bilirubin Negative, Urine Urobilinogen 0.2, Ur Leukocyte Esterase Negative, Urine RBC None, Urine WBC None, Ur Squamous Epith Cells Occasional, Urine Bacteria Trace 11/02/23 00:15: Lactate 2.4 H, Troponin I < 0.01 11/02/23 02:20: Lactate 1.5, Troponin I < 0.01 I & O for Labs for Last 24 Hours: Intake & Output 10/30/23 10/31/23 11/01/23 11/02/23 11:59 11:59 11:59 11:59 Intake Total 350 / 350 Output Total 100 / 100 Balance 250 / 250 Weight 191 lb 7 oz Constitutional: no acute distress Head: Present normocephalic Neck: Present normal inspection Respiratory: Present decreased breath sounds GI: Present soft Comments:: He has a palpable umbilical hernia. There is a soft inguinal hernia which is easily reducible. He is diffusely tender with guarding and rebound. Rectal (male): Present deferred Results Labs 11/02/23 06:30 11/02/23 06:30 Labs: Laboratory Results - last 24 hr 11/01/23 19:36: WBC 29.9 H*, RBC 4.48 L, Hgb 15.1, Hct 45.7, MCV 102.0 H, MCH 33.8 H, MCHC 33.1, RDW 14.9, Plt Count 248, MPV 8.1, Neut % (Auto) 95.9 H, Lymph % (Auto) 1.3 L, [place] % (Auto) 2.3, Eos % (Auto) 0.1, Baso % (Auto) 0.4, Neut # (Auto) 28.7 H, Lymph # (Auto) 0.4 L, [place] # (Auto) 0.7, Eos # (Auto) 0.0, Baso # (Auto) 0.1, Total Counted 100, Neutrophils % (Manual) 94 H, Band Neutrophils % 1.0, Lymphocytes % (Manual) 5 L, Platelet Estimate Normal, Macrocytosis 1+, S odium 134 L, Potassium 4.0, Chloride 99, Carbon Dioxide 22, Anion Gap 17.0 H, B UN 36 H, Creatinine 1.10, Estimated Creat Clear 63, Estimated GFR 64, Est GFR ( Amer) 77, Glucose 171 H, Lactate 2.7 H, Calcium 9.3, Total Bilirubin 1.4 H, AST 49, ALT 33, Alkaline Phosphatase 155 H, Troponin I < 0.01, Total Protein 7.1, Albumin 4.0, Globulin 3.1, Albumin/Globulin Ratio 1.3, Lipase 43 11/01/23 21:30: Urine Color Yellow, Urine Appearance Clear, Urine pH 6.0, Ur Specific [place] 1.010, Urine Protein Trace, Urine Glucose (UA) Negative, Urine Ketones Negative, Urine Blood Trace-i, Urine Nitrate Negative, Urine Bilirubin Negative, Urine Urobilinogen 0.2, Ur Leukocyte Esterase Negative, Urine RBC None, Urine WBC None, Ur Squamous Epith Cells Occasional, Urine Bacteria Trace 11/02/23 00:15: Lactate 2.4 H, Troponin I < 0.01 11/02/23 02:20: Lactate 1.5, Troponin I < 0.01 Assessment and Plan *Assessment and plan (1) Colitis: Status: Acute Category: Medical Code(s): K52.9 - Noninfective gastroenteritis and colitis, unspecified Plan Patient has numerous medical comorbidities and morbidity and mortality is appreciable. His findings may be secondary to colitis which, given his history and medical comorbidities, may be due to vascular insufficiency (ischemic colitis). However, the possibility of acute mesenteric ischemia exists which is reinforced by his history of pain out of proportion to physical findings. This is obviously beyond the capabilities of this facility and recommend initiate transfer to higher level of care with general surgery, vascular surgery, and cardiology availability. Patient's mortality risk is high.
--- NOTE | 2023-11-02 07:06 | PC.NURSE ---
VSS, patient rested this shift, recvd 1 dose of morphine, 1 dose of antibiotic, LR 300mL. No events noted this shift.
[2023-11-02 07:10] LABS: Chloride 104 mmol/L (98-107)
[2023-11-02 07:11] LABS: Potassium 4.4 mmoL/L (3.5-5.1); Sodium 132 mmol/L (136-145)
[2023-11-02 07:13] LABS: Alanine Aminotransferase 20 U/L (12-78); Alkaline Phosphatase 138 U/L (38-126); Anion Gap 10.4 mEq/L (5-15); Aspartate Amino Transferase 50 U/L (17-59); Bilirubin,Total 1.1 mg/dl (0.2-1.3); Blood Urea Nitrogen 37 mg/dl (9-20); Carbon Dioxide 22 mmol/L (22.0-30.0); Creatinine Clearance Estimated 61 mL/min (50-200); Estimated Glomerular Filt Rate 64 ml/min (>60); GFR (African American) 77 ML/MIN (>60)
[2023-11-02 07:14] LABS: Albumin Level 3.3 g/dl (3.5-5.0); Albumin/Globulin Ratio 1.2 (1.1-1.8); Calcium 8.8 mg/dl (8.4-10.2); Globulin 2.8 g/dL (1.3-3.2); Glucose 137 mg/dl (74-100); Magnesium 1.9 mg/dl (1.6-2.3); Total Protein,Serum 6.1 g/dl (6.3-8.2)
--- NOTE | 2023-11-02 07:18 | HMH.PHAINT1 ---
Pharmacy Intervention Comments: HOME MEDICATION LIST VERIFIED VIA OUTSIDE PHARMACY AND PAST/RECENT ER DISCHARGE NOTES
[2023-11-02 07:27] LABS: Hematocrit 41.9 % (42.0-52.0); Lymphocytes % 4.7 % (10-50); Mean Corpuscular HGB Conc 32.7 g/dL (31.8-35.4); Mean Corpuscular Hemoglobin 33.4 pg (27.0-31.2); Mean Corpuscular Volume 102.1 fl (80-94); Mean Platelet Volume 8.6 fl (7.4-10.4); Monocytes % 2.5 % (1.7-9.3); Neutrophils # 26.6 K/mm3 (1.8-7.8); Neutrophils % 92.4 % (37.0-80.0); Platelet Count 216 K/mm3 (142-424); Red Cell Distribution Width 14.6 % (11.5-17.5); White Blood Count 28.7 K/mm3 (4.8-10.8)
[2023-11-02 07:28] LABS: Hemoglobin 13.7 g/dL (14.1-18.0)
[2023-11-02 07:30] LABS: MANUAL DIFFERENTIAL MANUAL DIFFERENTIAL (MANUAL DIFF)
[2023-11-02 08:00] VITALS: BP 89/54; PULSE 81; PULSE 90; RESP 21; TEMP 36.4; O2SAT 97
--- NOTE | 2023-11-02 08:00 | P.CONCA_ITS ---
History of Present Illness History of Present Illness Consult date: 11/02/23 Requesting physician: Scott Yao Consult reason: known to you Chief complaint: Abdominal pain/colitis, AICD firings Additional Medical History:: 1. CAD A. Non-ischemic cardiomyopathy ([facility], 2008) with EF of 20-30% in past by echo and [facility] (10/2016) B. BiV ICD, 10/2016, [employer] model # G148, serial # [id number]. RV lead capped (due to lead oversensing with AICD firings) with new lead placed, 12/27/2018. C. C, 12/2018, Normal coronaries, EF 20%, LVEDP of 5 mm Hg. 2. PAF with RVR A. Anticoagulation with Coumadin therapy B. History of CVA 2008 C. Remote history of amiodarone use D. AV node ablation, 2022, Dr. Tyrone Aguilera 3. Hypertension A. Echo, 12/23/2018, EF 20-25%, mild AR/MR/TR with RVSP 47 mm Hg 4. COPD A. Centrilobular and paraseptal emphysema on CT of the chest 2020 B. CTA of the chest, 10/29/2023, no suspicious infiltrate or nodules identified. No evidence of pulmonary embolus. AAA at 4.8 cm. 5. Hyperlipidemia 6. 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 On levothyroxine therapy with TSH 1.08 in 10/2022 7. AAA, 4.9-5.1 cm, 10/2023 8. Left kidney mass, followed by Dr. Ramos A. Abdominal/pelvic CT, 11/01/2023, transverse and descending colitis. Left inguinal hernia contains transverse colon without obstruction. Bilateral renal cysts. No hydronephrosis. History of present illness: This is a 83-year-old male with PMHx of multiple comorbidities including AICD in place, who presents emergency department for multiple complaints. Main complaint is acute abdominal pain that is going on since 6 PM, severe, global, with 4 episodes of nonbloody diarrhea. Patient has been seen 3 times in the last week for back pain and discharged home. Patient states that his AICD has shocked him approximately 4 times today, last shock 6 PM. He does not state that he has any particular chest pain however he does not like that his AICD is shocking him. Admitted for further work up. The above per Jb Bahena APRN for the hospitalist service Events as noted above confirmed with the patient. He does have brief runs of ventricular tachycardia on telemetry. Will interrogate his AICD today. Due to his back pain and abdominal discomfort over the last few days he has not been taking his medication as previously prescribed. Recommend lowering his Entresto and increasing his beta-abhay due to the ventricular tachycardia. [facility] Disclaimer: The information contained in this section may have been updated after the jeana ent was seen, as this information can be updated by other users. 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) Palpitations Atrial flutter Thoracic ascending aortic aneurysm COPD (chronic obstructive pulmonary disease) Chest pain Atrial fibrillation Chronic systolic heart failure Dyspnea HLD (hyperlipidemia) HTN (hypertension) Surgical History Biventricular ICD (implantable cardioverter-defibrillator) in place Automatic implantable cardioverter-defibrillator in situ Family History Other Family history of stroke Social History (Updated 11/02/23 @ 02:56 by Georgia Barroso RN) Smoking Status: Former smoker how long ago did patient quit smokin years ago alcohol intake: never substance use type: denies use current occupational status: retired Travel in the last 8 weeks: None household members: none housing: house caffeine: Yes (coffee) Review of Systems Review of Systems Review of systems:: pertinent systems reviewed and negative unless documented below *Gastrointestinal Gastrointestinal: Reports abdominal pain, Reports change in bowel habits and Reports change in stool character Exam Data for Last 24 hours Vital signs and Labs for Last 24 Hours: Temp Pulse Resp BP Pulse Ox O2 Del Method 97.5 F L 89 20 84/57 L 96 Room Air 11/02/23 04:00 11/02/23 04:00 11/02/23 04:00 11/02/23 04:00 11/02/23 04:00 11/02/23 07:00 Laboratory Results - last 24 hr 11/01/23 19:36: WBC 29.9 H*, RBC 4.48 L, Hgb 15.1, Hct 45.7, MCV 102.0 H, MCH 33.8 H, MCHC 33.1, RDW 14.9, Plt Count 248, MPV 8.1, Neut % (Auto) 95.9 H, Lymph % (Auto) 1.3 L, Page % (Auto) 2.3, Eos % (Auto) 0.1, Baso % (Auto) 0.4, Neut # (Auto) 28.7 H, Lymph # (Auto) 0.4 L, Page # (Auto) 0.7, Eos # (Auto) 0.0, Baso # (Auto) 0.1, Total Counted 100, Neutrophils % (Manual) 94 H, Band Neutrophils % 1.0, Lymphocytes % (Manual) 5 L, Platelet Estimate Normal, Macrocytosis 1+, Sodium 134 L, Potassium 4.0, Chloride 99, Carbon Dioxide 22, Anion Gap 17.0 H, BUN 36 H, Creatinine 1.10, Estimated Creat Clear 63, Estimated GFR 64, Est GFR ( Amer) 77, Glucose 171 H, Lactate 2.7 H, Calcium 9.3, Total Bilirubin 1.4 H, AST 49, ALT 33, Alkaline Phosphatase 155 H, Troponin I < 0.01, Total Protein 7.1, Albumin 4.0, Globulin 3.1, Albumin/Globulin Ratio 1.3, Lipase 43 11/01/23 21:30: Urine Color Yellow, Urine Appearance Clear, Urine pH 6.0, Ur Specific [place] 1.010, Urine Protein Trace, Urine Glucose (UA) Negative, Urine Ketones Negative, Urine Blood Trace-i, Urine Nitrate Negative, Urine Bilirubin Negative, Urine Urobilinogen 0.2, Ur Leukocyte Esterase Negative, Urine RBC None, Urine WBC None, Ur Squamous Epith Cells Occasional, Urine Bacteria Trace 11/02/23 00:15: Lactate 2.4 H, Troponin I < 0.01 11/02/23 02:20: Lactate 1.5, Troponin I < 0.01 11/02/23 06:30: WBC 28.7 H*, RBC 4.10 L, Hgb 13.7 L, Hct 41.9 L, MCV 102.1 H, MCH 33.4 H, MCHC 32.7, RDW 14.6, Plt Count 216, MPV 8.6, Neut % (Auto) 92.4 H, Lymph % (Auto) 4.7 L, Page % (Auto) 2.5, Eos % (Auto) 0.1, Baso % (Auto) 0.3, Neut # (Auto) 26.6 H, Lymph # (Auto) 1.4, Page # (Auto) 0.7, Eos # (Auto) 0.0, Baso # (Auto) 0.1, Sodium 132 L, Potassium 4.4, Chloride 104, Carbon Dioxide 22, Anion Gap 10.4, BUN 37 H, Creatinine 1.10, Estimated Creat Clear 61, Estimated GFR 64, Est GFR ( Amer) 77, Glucose 137 H, Calcium 8.8, Magnesium 1.9, Total Bilirubin 1.1, AST 50, ALT 20 D, Alkaline Phosphatase 138 H, Total Protein 6.1 L, Albumin 3.3 L D, Globulin 2.8, Albumin/Globulin Ratio 1.2 I & O for Last 24 hours: Intake & Output 10/30/23 10/31/23 11/01/23 11/02/23 11:59 11:59 11:59 11:59 Intake Total 350 / 350 Output Total 100 / 100 Balance 250 / 250 Weight 191 lb 7 oz Constitutional Constitutional: mild distress *Routine Respiratory Exam Respiratory: Present CTA bilaterally *Routine Cardiovascular Exam Cardiovascular: Present RRR and murmur *Routine Extremities Exam Extremities: Present edema Meds Home Medications and Allergies Home Medications Medication Instructions Recorded Confirmed Type levothyroxine 100 mcg tablet 100 mcg PO DAILY #90 tabs 12/22/18 11/02/23 History tamsulosin 0.4 mg capsule 0.4 mg PO HS 01/15/23 11/02/23 History apixaban 5 mg tablet (Eliquis) 5 mg PO BID 01/20/23 11/02/23 History bisoprolol fumarate 10 mg tablet 10 mg PO DAILY #90 tabs 02/23/23 11/02/23 Rx allopurinol 100 mg tablet 100 mg PO DAILY 03/09/23 11/02/23 History vitamins A,C,Z-xhbl-sehjrj 4,296 1 cap PO DAILY 03/09/23 11/02/23 History mcg-226 mg-90 mg capsule (PreserVision AREDS) methocarbamol 500 mg tablet 500 mg PO Q12HP PRN muscle spasm 07/06/23 11/02/23 Rx #20 tabs lidocaine 5 % topical patch 1 patch topical DAILY #30 ea 10/29/23 11/02/23 Rx dexamethasone 6 mg tablet 6 mg PO DAILY #5 tabs 10/30/23 11/02/23 Rx fluticasone fur. 100 mcg-umeclid 2 inh inhalation DAILY 11/02/23 11/02/23 History 62.5 mcg-vilant 25 mcg inhalat.powder (Trelegy Ellipta) pravastatin 40 mg tablet 40 mg PO DAILY 11/02/23 11/02/23 History sacubitril 97 mg-valsartan 103 mg 1 tab PO BID 11/02/23 11/02/23 History tablet (Entresto) New Prescriptions to Start Prescriptions: Allergies Allergy/AdvReac Type Severity Reaction Status Date / Time No Known Allergies Allergy Verified 06/24/23 10:25 Assessment and Plan *Assessment and plan (1) Abdominal pain: Status: Acute Qualifiers: Abdominal location: unspecified location Qualified Code(s): R10.9 - Unspecified abdominal pain Category: Medical Code(s): R10.9 - Unspecified abdominal pain (2) Colitis: Status: Acute Category: Medical Code(s): K52.9 - Noninfective gastroenteritis and colitis, unspecified (3) Biventricular ICD (implantable cardioverter-defibrillator) in place: Status: Acute Category: Surgical Code(s): Z95.810 - Presence of automatic (implantable) cardiac defibrillator (4) HTN (hypertension): Status: Chronic Qualifiers: Hypertension type: essential hypertension Qualified Code(s): I10 - Essential (primary) hypertension Category: Medical Code(s): I10 - Essential (primary) hypertension (5) Thoracic ascending aortic aneurysm: Status: Chronic Qualifiers: Presence of rupture: without rupture Qualified Code(s): I71.21 - Aneurysm of the ascending aorta, without rupture Category: Medical Code(s): I71.2 - Thoracic aortic aneurysm, without rupture (6) COPD (chronic obstructive pulmonary disease): Status: Acute Qualifiers: COPD type: unspecified COPD Qualified Code(s): J44.9 - Chronic obstructive pulmonary disease, unspecified Category: Medical Code(s): J44.9 - Chronic obstructive pulmonary disease, unspecified (7) Back pain: Status: Acute Qualifiers: Back pain location: low back pain Chronicity: unspecified Back pain laterality: unspecified Sciatica presence: without sciatica Qualified Code(s): M54.50 - Low back pain, unspecified Category: Medical Code(s): M54.9 - Dorsalgia, unspecified Plan 1. Colitis with abdominal pain and diarrhea defer to hospitalist and surgery Reportedly being referred to a tertiary center for further treatment 2. Nonsustained ventricular tachycardia in a patient with nonischemic cardiomyopathy and AICD with patient reported recurrent firing. Current GI illness caused medication noncompliance Decrease Entresto and increase bisoprolol 10 mg to twice daily Interrogated AICD today with evidence of multiple episodes of pacemaker mediated tachycardia on 11/01/2023. No evidence of pacer firing. 3. Nonischemic cardiomyopathy with HFrEF repeat echocardiogram to evaluate EF Continue Entresto but at reduced dose to allow for more beta-abhay therapy due to nonsustained VT Recent ICD download showed no evidence of fluid retention 4. COPD 5. AAA, stable at around 4.8-5.1 cm 6. Paroxysmal atrial fibrillation with history of AV node ablation in 2022 BiV paced 99% of the time of ICD download today Meds adjusted as noted above Echocardiogram pending Patient likely to be transferred for GI issues
--- NOTE | 2023-11-02 08:11 | CA_ITS ---
APPROVED REPORT EXAM: Comprehensive 2D, Doppler, and color-flow Echocardiogram Cloth Finishing Range Tender: Abena Knapp, RT(R) Ht: 5 ft 10 in Wt: 191lbs BSA: 2.05 BP: 84/57 mmHg Indications: CM, ex smoker, palpitations, HTN, hyperlipidemia, AICD shocks, CAD, EF 20-30% 05/15/22, hx CVA, AFIB 2D Dimensions LVOT 2.24 cm (M/F) 1.5-2.5 LVEF (Shaver's) 39.00 % M: 52 - 72 LV Volume 145.20 mL M: 62 - 150 LV Volume Index 70.8 mL/m2 M: 34 - 74 EF AP4 47.80 % EF AP2 29.1 % EF BP 39.0 % GL Strain -11.2 % M-Mode Dimensions RVDd 3.38 cm (0.9-2.6) LVDd 5.98 cm (3.5-5.7) LVDs 5.10 cm (3.5-5.7) IVSd 0.93 cm (0.6-1.1) PWd 0.78 cm (0.6-1.1) EF (Teich) 30.70% FS 14.70% EDV (Teich) 178.60 mL ESV (Teich) 123.80 mL LV Diastology E Decel Time 250 (160-240 msec) E/A Ratio 0.7 MED E' 5.9 (>= 7 cm/sec) E'/MED E' Ratio 8.85 (<= 14) LAT E' 7.2 (>= 10 cm/sec) E/LAT E' Ratio 7.25 (<= 14) Aortic Valve LVOT Max 111.0 (70-110 cm/s) DIETER Index 1.72 cm2/m2 LVOT VTI 17.75 cm AoV Peak Sagar. 131.0 (50-130 cm/s) AI PHT 797.00 ms AO Mean GR. 3.40 (<5 mmHg) AO VTI 19.9 (18-25 cm) DIETER (VTI) 3.52 (2.5-4.5 cm2) Mitral Valve MV E Max Sagar. 52.0 (40-130 cm/s) MV A Velocity 71.0 (40-130 cm/s) E/A Ratio 0.73 MV Decel. Time 250 (160-240 ms) Tricuspid Valve TR P. Velocity 299.00 cm/s RAP Estimate 10.00 mmHg RVSP 45.70 mmHg Left Ventricle The left ventricle is normal size. Left ventricular systolic function is moderately decreased. There is increased wall thickness. The septal LV wall appears asynchronous and hypokinetic. Grade 2 diastolic dysfunction is present. LVEF is 35-40%. Right Ventricle The right ventricle is normal size. The right ventricular systolic function is normal. There is a device lead in the right ventricle. Atria The left atrium is mildly dilated. The right atrium is mildly dilated. The interatrial septum is not well-visualized. Aortic Valve The aortic valve is mildly thickened. There is no aortic valvular stenosis. Mild aortic regurgitation. Mitral Valve The mitral valve leaflets are mildly thickened. No evidence of mitral valve stenosis. Trace mitral regurgitation. Tricuspid Valve The tricuspid valve leaflets are thin and pliable. Mild tricuspid regurgitation. RVSP is 30-35 mmHg. Pulmonic Valve The pulmonary valve is normal in structure. Trace pulmonic regurgitation. Great Vessels The aortic root is normal in size. The ascending aorta is not well-visualized. IVC is normal in size and collapses >50% with inspiration. Pericardium There is no pericardial effusion. Other Information Study Quality: Fair Conclusion Moderate reduction in LV systolic function (LVEF 35-40%). Grade 2 diastolic dysfunction. Mild AI, mild TR. Compared to prior study from 2021, the LVEF appears slightly improved. Electronically signed by : Maria Ines Salgado MD 11/04/2023 12:45:53
[2023-11-02] MEDS: ALLOPURINOL 100MG TABLET 100 MG PO (08:15)
[2023-11-02] MEDS: APIXABAN 5MG TABLET 5 MG PO (08:17)
[2023-11-02] MEDS: BISOPROLOL 5MG TABLET 10 MG PO (08:17)
[2023-11-02] MEDS: DEXAMETHASONE 4MG TABLET 6 MG PO (08:18)
[2023-11-02] MEDS: LIDOCAINE 5% TRANSDERMAL PATCH 1 EACH TP (08:19)
[2023-11-02] MEDS: LEVOTHYROXINE 100MCG (0.1MG) TAB 100 MCG PO (08:19)
[2023-11-02 08:39] LABS: Lymphocytes % 8 % (10-50); Monocytes % 4 % (2-9); Neutrophils % 88 % (42-76); Total Cells Counted 100
[2023-11-02 08:40] LABS: Platelet Estimate Normal; RBC Morphology Normal
[2023-11-02 12:00] VITALS: BP 99/60; PULSE 67; PULSE 70; RESP 18; TEMP 36.5; O2SAT 96
--- NOTE | 2023-11-02 13:09 | P.EN_ITS ---
Patient is accepted at [facility], awaiting bed assigment
--- NOTE | 2023-11-02 13:09 | EXP.EVENT.NO ---
Patient is accepted at [facility], awaiting bed assigment
[2023-11-02 16:00] VITALS: BP 99/71; PULSE 60; RESP 20; TEMP 36.6; O2SAT 97
--- NOTE | 2023-11-02 16:48 | P.DS_ITS ---
General Admission date:: 11/01/23 Discharge date: 11/02/23 HPI HPI HPI: Patient is an 83-year-old male with numerous comorbidities including history of aortic regurgitation, atrial fibrillation with previous AV node ablation, ischemic cardiomyopathy, congestive heart failure (Previous documented EF 20%), hypertension, COPD, hyperlipidemia, thoracic ascending aortic aneurysm, AICD placement, on Eliquis. He has previously been evaluated at [facility] regarding his thoracic aortic aneurysm. He has been evaluated in the emergency department on 10/27/2023, 10/29/2023, and 10/30/2023 and managed as an outpatient mainly for back pain. His workup has included a CT angiogram of the chest which reveals thoracic aortic aneurysm. On 10/29/[address] angiogram of the abdomen and pelvis which revealed simple and complex renal cysts, large amount of retained stool within the colon, fat-containing left inguinal hernia. He had return to the emergency department in the evening of with multiple complaints including that his AICD had shocked him approximately 4 times. He described diffuse severe acute abdominal pain. He also had some nonbloody diarrhea. He was found to have a leukocytosis of 30,000. Lactate of 2.7. BUN of 36 with a creatinine of 1.1. He underwent CT scan of the abdomen and pelvis which revealed findings of transverse and descending colitis with left inguinal hernia containing transverse colon without obstruction. He was admitted for inpatient management to the hospitalist service. Apparently surgical consultation was ordered to evaluate abdominal pain and colitis as the patient appeared on the surgical rounds list. He describes ongoing pain. He rates it as an 11.5 out of 10. Hospital Course Hospital Course Hospital Course: 83-year-old male with PMHx of multiple comorbidities including AICD in place, who presents emergency department for multiple complaints. Main complaint is acute abdominal pain that is going on since 6 PM, severe, global, with 4 episodes of nonbloody diarrhea. also c/o AICD has been active recently with 4 shock prior to admission. On arrival initial work up consistent with significant leukocytosis, no anemia,, elevated lactate which be resuscitated with crystalloid. Urinalysis grossly -negative for infection. CT imaging are markable for transverse and descending colitis, left inguinal hernia contains transverse colon without evidence of obstruction. Findings discussed with ED. Agreed for admission: -Acute abdominal pain likely secondary to descending colitis: Will review leukocytosis: Elevated lactic acidosis Admit patient for medical services. Dispo MedSurg Started on Zosyn Q8 Concern for ischemic colitis - recommended transfer to higher level of care -Other chronic conditions: Hypertension hyperlipidemia hypothyroidism and COPD: Condition reviewed and seems to be stable at this point Resume home regimen patient on Synthroid 100 mcg Entresto, bisoprolol Optimize O2 saturation. -Biventricular ICD in place: cardiology consultation performed, follow up as OP, referral given Exam Data for Last 24 hours Vital signs and Labs for Last 24 Hours: Temp Pulse Resp BP Pulse Ox O2 Del Method 97.9 F 60 20 99/71 L 97 Room Air 11/02/23 16:00 11/02/23 16:00 11/02/23 16:00 11/02/23 16:00 11/02/23 16:00 11/02/23 16:00 Laboratory Results - last 24 hr 11/01/23 19:36: WBC 29.9 H*, RBC 4.48 L, Hgb 15.1, Hct 45.7, MCV 102.0 H, MCH 33.8 H, MCHC 33.1, RDW 14.9, Plt Count 248, MPV 8.1, Neut % (Auto) 95.9 H, Lymph % (Auto) 1.3 L, Camp % (Auto) 2.3, Eos % (Auto) 0.1, Baso % (Auto) 0.4, Neut # (Auto) 28.7 H, Lymph # (Auto) 0.4 L, Camp # (Auto) 0.7, Eos # (Auto) 0.0, Baso # (Auto) 0.1, Total Counted 100, Neutrophils % (Manual) 94 H, Band Neutrophils % 1.0, Lymphocytes % (Manual) 5 L, Platelet Estimate Normal, Macrocytosis 1+, Sodium 134 L, Potassium 4.0, Chloride 99, Carbon Dioxide 22, Anion Gap 17.0 H, BUN 36 H, Creatinine 1.10, Estimated Creat Clear 63, Estimated GFR 64, Est GFR ( Amer) 77, Glucose 171 H, Lactate 2.7 H, Calcium 9.3, Total Bilirubin 1.4 H, AST 49, ALT 33, Alkaline Phosphatase 155 H, Troponin I < 0.01, Total Protein 7.1, Albumin 4.0, Globulin 3.1, Albumin/Globulin Ratio 1.3, Lipase 43 11/01/23 21:30: Urine Color Yellow, Urine Appearance Clear, Urine pH 6.0, Ur Specific [place] 1.010, Urine Protein Trace, Urine Glucose (UA) Negative, Urine Ketones Negative, Urine Blood Trace-i, Urine Nitrate Negative, Urine Bilirubin Negative, Urine Urobilinogen 0.2, Ur Leukocyte Esterase Negative, Urine RBC None, Urine WBC None, Ur Squamous Epith Cells Occasional, Urine Bacteria Trace 11/02/23 00:15: Lactate 2.4 H, Troponin I < 0.01 11/02/23 02:20: Lactate 1.5, Troponin I < 0.01 11/02/23 06:30: WBC 28.7 H*, RBC 4.10 L, Hgb 13.7 L, Hct 41.9 L, MCV 102.1 H, MCH 33.4 H, MCHC 32.7, RDW 14.6, Plt Count 216, MPV 8.6, Neut % (Auto) 92.4 H, Lymph % (Auto) 4.7 L, Camp % (Auto) 2.5, Eos % (Auto) 0.1, Baso % (Auto) 0.3, Neut # (Auto) 26.6 H, Lymph # (Auto) 1.4, Camp # (Auto) 0.7, Eos # (Auto) 0.0, Baso # (Auto) 0.1, Total Counted 100, Neutrophils % (Manual) 88 H, Lymphocytes % (Manual) 8 L, Monocytes % (Manual) 4, Platelet Estimate Normal, RBC Morphology Normal, Sodium 132 L, Potassium 4.4, Chloride 104, Carbon Dioxide 22, Anion Gap 10.4, BUN 37 H, Creatinine 1.10, Estimated Creat Clear 61, Estimated GFR 64, Est GFR ( Amer) 77, Glucose 137 H, Calcium 8.8, Magnesium 1.9, Total Bilirubin 1.1, AST 50, ALT 20 D, Alkaline Phosphatase 138 H, Total Protein 6.1 L, Albumin 3.3 L D, Globulin 2.8, Albumin/Globulin Ratio 1.2 I & O for Last 24 hours: Intake & Output 10/30/23 10/31/23 11/01/23 11/02/23 23:59 23:59 23:59 23:59 Intake Total 400 / 400 Output Total 550 / 550 Balance -150 / -150 Weight 88.451 kg 86.835 kg Constitutional Constitutional: no acute distress *Routine HEENT Exam Head: Present normocephalic Eye: Present EOMI and PERRL ENT: Present mucous membranes moist *Routine Neck Exam Neck: Present supple; Absent lymphadenopathy *Routine Respiratory Exam Respiratory: Present CTA bilaterally *Routine Cardiovascular Exam Cardiovascular: Present RRR *Routine Abdominal Exam Abdominal: Present soft, normoactive bowel sounds and tenderness Comments: has abdominal tenderness around middle of the abdomen, out of proportion to palpation *Routine Extremities Exam Extremities: Absent cyanosis, clubbing or edema *Routine Skin Exam Skin: Present warm; Absent rash *Routine Neurological Exam Neurological: Present alert and oriented X3 Results Data Completed and Pending Labs on day of discharge: Labs from last 24 hours 11/02/23 11/02/23 11/02/23 06:30 02:20 00:15 WBC 28.7 H* RBC 4.10 L Hgb 13.7 L Hct 41.9 L MCV 102.1 H MCH 33.4 H MCHC 32.7 RDW 14.6 Plt Count 216 MPV 8.6 Neut % (Auto) 92.4 H Lymph % (Auto) 4.7 L Camp % (Auto) 2.5 Eos % (Auto) 0.1 Baso % (Auto) 0.3 Neut # (Auto) 26.6 H Lymph # (Auto) 1.4 Camp # (Auto) 0.7 Eos # (Auto) 0.0 Baso # (Auto) 0.1 Total Counted 100 Neutrophils % (Manual) 88 H Band Neutrophils % Lymphocytes % (Manual) 8 L Monocytes % (Manual) 4 Platelet Estimate Normal RBC Morphology Normal Macrocytosis Sodium 132 L Potassium 4.4 Chloride 104 Carbon Dioxide 22 Anion Gap 10.4 BUN 37 H Creatinine 1.10 Estimated Creat Clear 61 Estimated GFR 64 Est GFR ( Amer) 77 Glucose 137 H Lactate 1.5 2.4 H Calcium 8.8 Magnesium 1.9 Total Bilirubin 1.1 AST 50 ALT 20 D Alkaline Phosphatase 138 H Troponin I < 0.01 < 0.01 Total Protein 6.1 L Albumin 3.3 L D Globulin 2.8 Albumin/Globulin Ratio 1.2 Lipase Urine Color Urine Appearance Urine pH Ur Specific [place] Urine Protein Urine Glucose (UA) Urine Ketones Urine Blood Urine Nitrate Urine Bilirubin Urine Urobilinogen Ur Leukocyte Esterase Urine RBC Urine WBC Ur Squamous Epith Cells Urine Bacteria 11/01/23 11/01/23 21:30 19:36 WBC 29.9 H* RBC 4.48 L Hgb 15.1 Hct 45.7 MCV 102.0 H MCH 33.8 H MCHC 33.1 RDW 14.9 Plt Count 248 MPV 8.1 Neut % (Auto) 95.9 H Lymph % (Auto) 1.3 L Camp % (Auto) 2.3 Eos % (Auto) 0.1 Baso % (Auto) 0.4 Neut # (Auto) 28.7 H Lymph # (Auto) 0.4 L Camp # (Auto) 0.7 Eos # (Auto) 0.0 Baso # (Auto) 0.1 Total Counted 100 Neutrophils % (Manual) 94 H Band Neutrophils % 1.0 Lymphocytes % (Manual) 5 L Monocytes % (Manual) Platelet Estimate Normal RBC Morphology Macrocytosis 1+ Sodium 134 L Potassium 4.0 Chloride 99 Carbon Dioxide 22 Anion Gap 17.0 H BUN 36 H Creatinine 1.10 Estimated Creat Clear 63 Estimated GFR 64 Est GFR ( Amer) 77 Glucose 171 H Lactate 2.7 H Calcium 9.3 Magnesium Total Bilirubin 1.4 H AST 49 ALT 33 Alkaline Phosphatase 155 H Troponin I < 0.01 Total Protein 7.1 Albumin 4.0 Globulin 3.1 Albumin/Globulin Ratio 1.3 Lipase 43 Urine Color Yellow Urine Appearance Clear Urine pH 6.0 Ur Specific [place] 1.010 Urine Protein Trace Urine Glucose (UA) Negative Urine Ketones Negative Urine Blood Trace-i Urine Nitrate Negative Urine Bilirubin Negative Urine Urobilinogen 0.2 Ur Leukocyte Esterase Negative Urine RBC None Urine WBC None Ur Squamous Epith Cells Occasional Urine Bacteria Trace DS: Diagnosis Discharge Diagnosis (1) Abdominal pain: Status: Acute Code(s): R10.9 - Unspecified abdominal pain Qualifiers: Abdominal location: unspecified location Qualified Code(s): R10.9 - Unspecified abdominal pain (2) Colitis: Status: Acute Code(s): K52.9 - Noninfective gastroenteritis and colitis, unspecified (3) Biventricular ICD (implantable cardioverter-defibrillator) in place: Status: Acute Code(s): Z95.810 - Presence of automatic (implantable) cardiac defibrillator (4) HTN (hypertension): Status: Chronic Code(s): I10 - Essential (primary) hypertension Qualifiers: Hypertension type: essential hypertension Qualified Code(s): I10 - Essential (primary) hypertension (5) Thoracic ascending aortic aneurysm: Status: Chronic Code(s): I71.2 - Thoracic aortic aneurysm, without rupture Qualifiers: Presence of rupture: without rupture Qualified Code(s): I71.21 - Aneurysm of the ascending aorta, without rupture (6) COPD (chronic obstructive pulmonary disease): Status: Acute Code(s): J44.9 - Chronic obstructive pulmonary disease, unspecified Qualifiers: COPD type: unspecified COPD Qualified Code(s): J44.9 - Chronic obstructive pulmonary disease, unspecified (7) Back pain: Status: Acute Code(s): M54.9 - Dorsalgia, unspecified Qualifiers: Back pain laterality: unspecified Back pain location: low back pain Chronicity: unspecified Sciatica presence: without sciatica Qualified Code(s): M54.50 - Low back pain, unspecified Meds Home Medications and Allergies Home Medications Medication Instructions Recorded Confirmed Type levothyroxine 100 mcg tablet 100 mcg PO DAILY #90 tabs 12/22/18 11/02/23 History tamsulosin 0.4 mg capsule 0.4 mg PO HS 01/15/23 11/02/23 History apixaban 5 mg tablet (Eliquis) 5 mg PO BID 01/20/23 11/02/23 History bisoprolol fumarate 10 mg tablet 10 mg PO DAILY #90 tabs 02/23/23 11/02/23 Rx allopurinol 100 mg tablet 100 mg PO DAILY 03/09/23 11/02/23 History vitamins A,C,F-drcr-vmlpto 4,296 1 cap PO DAILY 03/09/23 11/02/23 History mcg-226 mg-90 mg capsule (PreserVision AREDS) methocarbamol 500 mg tablet 500 mg PO Q12HP PRN muscle spasm 07/06/23 11/02/23 Rx #20 tabs lidocaine 5 % topical patch 1 patch topical DAILY #30 ea 10/29/23 11/02/23 Rx dexamethasone 6 mg tablet 6 mg PO DAILY #5 tabs 10/30/23 11/02/23 Rx fluticasone fur. 100 mcg-umeclid 2 inh inhalation DAILY 11/02/23 11/02/23 History 62.5 mcg-vilant 25 mcg inhalat.powder (Trelegy Ellipta) pravastatin 40 mg tablet 40 mg PO DAILY 11/02/23 11/02/23 History sacubitril 97 mg-valsartan 103 mg 1 tab PO BID 11/02/23 11/02/23 History tablet (Entresto) New Prescriptions to Start Prescriptions: Allergies Allergy/AdvReac Type Severity Reaction Status Date / Time No Known Allergies Allergy Verified 06/24/23 10:25 Discharge Plan Disposition Patient Disposition: [facility] Bed Discharge Order Discharge Orders: Discharge Order (Routine); Ordered 11/02/23 Ordered By: Scott Yao Follow up Plan Follow up with: Jason Sanchez PA [Physician Bariatric Program Coordinator] - 1 week Dany Reyes MD [Staff Physician] - 1 week Parag Sood MD [Staff Physician] - 1 week Prescriptions/Medication Reconciliation: Continued bisoprolol fumarate 10 mg tablet 10 mg PO DAILY Qty: 90 3RF allopurinol 100 mg tablet 100 mg PO DAILY PreserVision AREDS 4,296 mcg-226 mg-90 mg capsule 1 cap PO DAILY levothyroxine 100 mcg tablet 100 mcg PO DAILY Qty: 90 Eliquis 5 mg tablet 5 mg PO BID tamsulosin 0.4 mg Capsule 0.4 mg PO HS methocarbamol 500 mg tablet 500 mg PO Q12HP PRN (Reason: muscle spasm) Qty: 20 0RF dexamethasone 6 mg tablet 6 mg PO DAILY Qty: 5 0RF pravastatin 40 mg tablet 40 mg PO DAILY Entresto 97-103 mg tablet 1 tab PO BID Patient Comments: TAKE 1 TABLET TWICE DAILY Trelegy Ellipta 100-62.5-25 mcg blister with device 2 inh INHALATION DAILY lidocaine 5 % adhesive patch,medicated 1 patch topical DAILY Qty: 30 0RF Rx Instructions: leave on most painful area for up to 12 hrs Problem Reconciliation Problems Reviewed?: Yes Patient Discharge Instructions ACTIVITY: Ambulate as tolerated DIET: continue same diet Providers Primary Care Provider: Johnnie Lincoln Admit Provider: Scott Yao Attending Provider: Scott Yao
--- NOTE | 2023-11-02 17:38 | PC.NURSE ---
EMS contacted at this time for transport to [facility].
[2023-11-02 20:00] VITALS: BP 114/65; PULSE 66; RESP 17; TEMP 36.8; O2SAT 96
--- NOTE | 2023-11-02 20:41 | PC.NURSE ---
pt left floor withems at this time
== END 2023-11-02 20:41 | disposition short-term general hospital (02) ==
LOC: ER 20:31 → 2ND 22:41
PROVIDERS: Nurse Practitioner Family; Admitting Provider Internal Medicine; Emergency Provider Emergency Medicine; PCP Internal Medicine; Visit Provider Internal Medicine
DX: K52.9 Noninfective gastroenteritis and colitis, unspecified (principal); R10.9 Unspecified abdominal pain; Z95.810 Presence of automatic (implantable) cardiac defibrillator; I10 Essential (primary) hypertension; I71.21 Aneurysm of the ascending aorta, without rupture; J44.9 Chronic obstructive pulmonary disease, unspecified; M54.50 Low back pain, unspecified; E78.5 Hyperlipidemia, unspecified; E03.9 Hypothyroidism, unspecified
CPT/HCPCS: 36415; 71045; 74177; 80053; 81001; 83605; 83690; 83735; 84484; 85007; 85025; 87040; 93005; 93306; 99285; G0378; J2543; Q9967

== ENCOUNTER 2023-12-08 13:16 | Emergency (ER) | payer MEDICARE, SELFPAY ==
[2023-12-08] VITALS (9 sets, daily range): BP systolic 145–163; BP diastolic 84–107; PULSE 75–95; RESP 14–24; TEMP 36.6; O2SAT 91–97; BMI 27.8
--- NOTE | 2023-12-08 13:51 | CT_ITS ---
FINAL REPORT CLINICAL HISTORY: current tx for discitis, new pain, new LLE weaknes FINDINGS: Thin section axial CT images of the abdomen, pelvis and lower extremities were obtained with contrast. Multiplanar reformatted images were also obtained and reviewed. ABDOMEN AND PELVIS: There is no abdominal aortic aneurysm or dissection. The celiac axis and proximal superior mesenteric artery are unremarkable. There is no renal artery stenosis, with single renal arteries bilaterally. The inferior mesenteric artery is patent. There is no significant stenosis of the right common iliac artery or external right iliac artery. There is no significant stenosis of the left common iliac artery or external left iliac artery. The internal iliac arteries are patent. RIGHT LOWER EXTREMITY: There is no significant stenosis of the right common femoral or superficial femoral arteries. The right deep femoral artery is patent. There is mild irregularity at the level of the adductor canal. The right popliteal artery is patent. There is poor contrast enhancement in the distal right tibial vessels., However the trifurcation is patent. LEFT LOWER EXTREMITY: There is no significant stenosis of the left common femoral or superficial femoral arteries. The left deep femoral artery is patent. There is mild irregularity at the level of the adductor canal. The left popliteal artery is patent. There is two-vessel runoff in the left calf, with the posterior and anterior tibial arteries patent. OTHER FINDINGS: Small bilateral pleural effusions are present. The gallbladder is visualized. Bilateral renal cysts are noted. There is mild ectasia of the abdominal aorta measuring up to 3.3 cm in diameter. There is a left inguinal hernia which contains a segment of colon. IMPRESSION: Small bilateral pleural effusions are present. Mild ectasia of the abdominal aorta measuring up to 3.3 cm in size. Large left inguinal hernia containing a segment of colon. There is poor contrast enhancement in the distal left tibial vessels, however the posterior tibial and anterior tibial arteries on the left do appear to be patent. No major vessel significant stenosis or occlusion is identified. Reviewed, Interpreted and Dictated by Marcos Hannon MD Transcribed by Gladis Bess Authenticated and [facility]
--- NOTE | 2023-12-08 13:51 | CT_ITS ---
FINAL REPORT TECHNIQUE: Axial images were performed with and without intravenous contrast through the lumbar spine by computed tomography. Sagittal reconstruction images were also performed. This study was performed with techniques to keep radiation doses as low as reasonably achievable, (ALARA). Individualized dose reduction techniques using automated exposure control or adjustment of mA and/or kV according to the patient's size were employed. CLINICAL HISTORY: current tx for discitis, new pain, new LLE weaknes COMPARISON: None FINDINGS: CT LUMBAR SPINE WITH AND WITHOUT CONTRAST: There is significant disc space narrowing present at the L2-3 and L5-S1 levels. At the L2-3 disc space level there is endplate destruction, and there may be underlying discitis. Diffuse annular bulges are present from the L2-3 through the L5-S1 levels, with mild to moderate bilateral neural foraminal narrowing at all levels. No definite abnormal fluid collection or abscess is noted post intravenous contrast administration. There is a low-attenuation focus in the right kidney, that measures 2.9 x 2.6 cm in size. This is likely a complex cyst. IMPRESSION: L2-3 disc space level endplate destruction, possibly underlying discitis. There is no definite abnormal fluid collection or abscess noted in the post contrast administration images. Multilevel disc space narrowing noted elsewhere in the lumbar spine once again without evidence of enhancement after contrast administration. Low-attenuation focus in the right left kidney measuring 2.9 cm in greatest diameter, likely a complex cyst. Reviewed, Interpreted and Dictated by Marcos Hannon MD Transcribed by Gladis Bess Authenticated and [facility]
--- NOTE | 2023-12-08 13:51 | CT_ITS ---
FINAL REPORT TECHNIQUE: Axial images through the thoracic spine both with and without intravenous contrast were performed. Sagittal reconstruction images were performed. This study was performed with techniques to keep radiation doses as low as reasonably achievable, (ALARA). Individualized dose reduction techniques using automated exposure control or adjustment of mA and/or kV according to the patient's size were employed. CLINICAL HISTORY: new lle weakness, currently being treated for discitis, new pain COMPARISON: None FINDINGS: CT THORACIC SPINE WITH AND WITHOUT CONTRAST: The alignment of the thoracic vertebral bodies is unremarkable. Mild anterior osteophytes are present in the lower thoracic spine. There is an indentation into the inferior endplate of T9, most consistent in appearance with a Schmorl's node. There is no evidence of enhancement, fluid collection, or abscess identified. Small bilateral pleural effusions are present. There are advanced changes of centrilobular emphysema. There is partial visualization of a left upper lobe airspace opacity, that may represent pneumonia. IMPRESSION: Indentation into the inferior endplate of T9, most consistent in appearance with a Schmorl's node. Small bilateral pleural effusions and partial visualization of a left upper lobe airspace opacity that may represent pneumonia. Advanced changes of centrilobular emphysema. Reviewed, Interpreted and Dictated by Marcos Hannon MD Transcribed by Gladis Bess Authenticated and [facility]
[2023-12-08] MEDS: MORPHINE 4MG/ML SYRINGE 4 MG IV ×2 (14:01→21:10)
[2023-12-08] MEDS: ONDANSETRON 4MG/2ML VIAL 4 MG IV ×2 (14:02→21:09)
--- NOTE | 2023-12-08 14:13 | PC.NURSE ---
pt attempting to void, will obtain and PVR with bladder scan
[2023-12-08 14:23] LABS: Alanine Aminotransferase 33 U/L (12-78); Albumin Level 2.8 g/dl (3.5-5.0); Alkaline Phosphatase 201 U/L (38-126); Aspartate Amino Transferase 60 U/L (17-59); Bilirubin,Total 0.7 mg/dl (0.2-1.3); Blood Urea Nitrogen 7 mg/dl (9-20); Calcium 8.2 mg/dl (8.4-10.2); Carbon Dioxide 27 mmol/L (22.0-30.0); Chloride 102 mmol/L (98-107); Creatinine Clearance Estimated 68 mL/min (50-200); Estimated Glomerular Filt Rate 128 ml/min (>60); GFR (African American) 155 ML/MIN (>60); Globulin 2.9 g/dL (1.3-3.2); Glucose 107 mg/dl (74-100); Sodium 136 mmol/L (136-145); Total Protein,Serum 5.7 g/dl (6.3-8.2)
[2023-12-08 14:28] LABS: C-Reactive Protein 74.1 mg/L (0-4)
--- NOTE | 2023-12-08 14:42 | PC.NURSE ---
attempted to collect blood cultures at this time. Unsuccessful. called lab for assistance
[2023-12-08 14:46] LABS: Lactic Acid 0.9 mmol/L (0.7-2.1)
--- NOTE | 2023-12-08 14:49 | PC.NURSE ---
PT TO CT
--- NOTE | 2023-12-08 14:54 | HMH.EDGENADL ---
Discharge Plan Disposition Patient Disposition: Xfer Short-Term Hosp Prescriptions Prescriptions: No Action bisoprolol fumarate 10 mg tablet 10 mg PO DAILY Qty: 90 3RF allopurinol 100 mg tablet 100 mg PO DAILY PreserVision AREDS 4,296 mcg-226 mg-90 mg capsule 1 cap PO DAILY levothyroxine 100 mcg tablet 100 mcg PO DAILY Qty: 90 Eliquis 5 mg tablet 5 mg PO BID tamsulosin 0.4 mg Capsule 0.4 mg PO HS methocarbamol 500 mg tablet 500 mg PO Q12HP PRN (Reason: muscle spasm) Qty: 20 0RF dexamethasone 6 mg tablet 6 mg PO DAILY Qty: 5 0RF pravastatin 40 mg tablet 40 mg PO DAILY Entresto 97-103 mg tablet 1 tab PO BID Patient Comments: TAKE 1 TABLET TWICE DAILY Trelegy Ellipta 100-62.5-25 mcg blister with device 2 inh INHALATION DAILY lidocaine 5 % adhesive patch,medicated 1 patch topical DAILY Qty: 30 0RF Rx Instructions: leave on most painful area for up to 12 hrs Referrals Follow up/Referrals: Provider,Referral, MD [Primary Care Provider] - See instructions Clinical Impressions Clinical Impression: Acute exacerbation of chronic low back pain, Acute osteomyelitis of lumbar spine, Bilateral leg weakness Discharge ED Provider: Kulwant Love General Adult HPI <Yani Piña DO - Last Filed: 12/08/23 16:22> General Chief complaint: PAIN Stated complaint: Sever back pain, L2-3 discitis, PICC in place Time Seen by Provider: 12/08/23 13:18 Mode of Arrival: EMS Source of Information: Patient Limitations: No Limitations Description of Symptoms (Recalled from ER Triage Doc. by RN): Patient reports increased upper and mid back pain. Reports currently being on IV antibiotics related to an infection in his back. States the pain has gotten severe. History of Present Illness HPI narrative: This patient is an 83-year-old male with a history of discitis for which she is currently undergoing IV antibiotic therapy, chronic back pain, atrial fibrillation, BiV ICD, hypertension, lung mass, and colitis presenting to the emergency department for evaluation with concern for worsening back pain. According to the nursing facility where the patient is currently residing for rehabilitation, he typically gets up and ambulates with physical therapy, however today he did not get up and do things with physical therapy because he complained of worsening back pain. He also screams out in pain anytime someone tries to move his left leg and states that he has pain going down his leg. Is difficult to obtain a reliable history from the patient, as he does not provide a good timeline or history of events. 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 Patient arrives by EMS who notes that he was stable en route. Related Data Home Medications Medication Instructions Recorded Confirmed levothyroxine 100 mcg tablet 100 mcg PO DAILY #90 tabs 12/22/18 11/02/23 tamsulosin 0.4 mg capsule 0.4 mg PO HS 01/15/23 11/02/23 apixaban 5 mg tablet (Eliquis) 5 mg PO BID 01/20/23 11/02/23 allopurinol 100 mg tablet 100 mg PO DAILY 03/09/23 11/02/23 vitamins A,C,V-deva-vujaud 4,296 1 cap PO DAILY 03/09/23 11/02/23 mcg-226 mg-90 mg capsule (PreserVision AREDS) fluticasone fur. 100 mcg-umeclid 2 inh inhalation DAILY 11/02/23 11/02/23 62.5 mcg-vilant 25 mcg inhalat.powder (Trelegy Ellipta) pravastatin 40 mg tablet 40 mg PO DAILY 11/02/23 11/02/23 sacubitril 97 mg-valsartan 103 mg 1 tab PO BID 11/02/23 11/02/23 tablet (Entresto) Previous Rx's Medication Instructions Recorded bisoprolol fumarate 10 mg tablet 10 mg PO DAILY #90 tabs 02/23/23 methocarbamol 500 mg tablet 500 mg PO Q12HP PRN muscle spasm 07/06/23 #20 tabs lidocaine 5 % topical patch 1 patch topical DAILY #30 ea 10/29/23 dexamethasone 6 mg tablet 6 mg PO DAILY #5 tabs 10/30/23 Allergies Allergy/AdvReac Type Severity Reaction Status Date / Time No Known Allergies Allergy Verified 06/24/23 10:25 COUNTS INCLUDE 234 BEDS AT THE [facility] <Yani Piña DO - Last Filed: 12/08/23 16:22> COUNTS INCLUDE 234 BEDS AT THE [facility] Disclaimer: The information contained in this section may have been updated after the patient was seen, as this information can be updated by other users. 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) Palpitations Atrial flutter Thoracic ascending aortic aneurysm COPD (chronic obstructive pulmonary disease) Chest pain Atrial fibrillation Chronic systolic heart failure Dyspnea HLD (hyperlipidemia) HTN (hypertension) Surgical History Biventricular ICD (implantable cardioverter-defibrillator) in place Automatic implantable cardioverter-defibrillator in situ Family History Other Family history of stroke Social History Smoking Status: Unknown if ever smoked how long ago did patient quit smokin years ago alcohol intake: never substance use type: denies use current occupational status: retired Travel in the last 8 weeks: None household members: none housing: house caffeine: Yes (coffee) <Yani Piña DO - Last Filed: 12/08/23 16:22> ROS Obtained: Yes All systems reviewed & no additional complaints except as documented Physical Exam <Yani Piña DO - Last Filed: 12/08/23 16:22> General General appearance: alert and in no apparent distress Head Head exam: atraumatic and normocephalic Eye Eye exam: Present normal appearance, PERRL and EOMI ENT ENT exam: Present normal exam, normal oropharynx, mucous membranes moist and normal external ear exam Neck Neck exam: Present normal inspection, full ROM and trachea midline; Absent tenderness Chest Chest inspection: Present normal inspection and symmetric chest wall rise; Absent tenderness Respiratory Respiratory exam: Present normal lung sounds bilaterally; Absent respiratory distress, wheezes, stridor or accessory muscle use Cardiovascular Cardiovascular exam: Present regular rate and normal rhythm Abdominal Exam Abdominal exam: Present soft; Absent distention, tenderness or guarding Extremities Exam Extremities exam: Present normal inspection, full ROM and normal capillary refill; Absent tenderness or edema Back Exam Back exam: Present normal inspection and full ROM; Absent tenderness Neurological Exam Neurological exam: Present alert, CN II-XII intact and other (Intact sensation of the bilateral lower extremities. Screams out in pain with attempts to range of motion/motor strength test is lower extremities.); Absent oriented X3 or motor sensory deficit Psychiatric Psychiatric exam: Present normal affect and normal mood Skin Skin exam: Present warm and dry Medical Decision Making <Yani Piña, DO - Last Filed: 12/08/23 16:22> Medical Records Medical records reviewed: Yes I reviewed the patient's medical records. Richar Inquiry Pt receiving controlled substance: No Vital Signs: 12/08/23 13:16 12/08/23 13:30 12/08/23 14:00 Temperature 97.8 F Temperature Source Oral Pulse Rate 77 86 Pulse Rate [Radial] 82 Respiratory Rate 16 Blood Pressure 154/92 H 163/95 H Blood Pressure [Right Arm] 161/95 H Blood Pressure Mean Blood Pressure Mean [Right Arm] 117 Blood Pressure Source [Right Arm] Automatic Cuff Blood Pressure Position [Right Arm] Sitting 02 Sat by Pulse Oximetry 95 97 95 Oxygen Delivery Method Room Air 12/08/23 15:30 12/08/23 16:00 12/08/23 16:30 Temperature Temperature Source Pulse Rate 75 95 H 80 Pulse Rate [Radial] Respiratory Rate 24 22 Blood Pressure 145/95 H 156/99 H 154/84 H Blood Pressure [Right Arm] Blood Pressure Mean 115 109 Blood Pressure Mean [Right Arm] Blood Pressure Source [Right Arm] Blood Pressure Position [Right Arm] 02 Sat by Pulse Oximetry 92 L 92 L 95 Oxygen Delivery Method 12/08/23 17:00 12/08/23 17:30 Temperature Temperature Source Pulse Rate 79 81 Pulse Rate [Radial] Respiratory Rate 21 14 Blood Pressure 156/90 H 158/89 H Blood Pressure [Right Arm] Blood Pressure Mean 106 Blood Pressure Mean [Right Arm] Blood Pressure Source [Right Arm] Blood Pressure Position [Right Arm] 02 Sat by Pulse Oximetry 94 L 91 L Oxygen Delivery Method Lab Data Lab results reviewed: Yes I reviewed the patient's lab results. Lab Results 12/08/23 14:00: Sodium 136, Potassium 3.0 L, Chloride 102, Carbon Dioxide 27, Anion Gap 10.0, BUN 7 L, Creatinine 0.60 L, Estimated Creat Clear 68, Estimated GFR 128, Est GFR ( Amer) 155, Glucose 107 H, Calcium 8.2 L, Total Bilirubin 0.7, AST 60 H, ALT 33, Alkaline Phosphatase 201 H, C-Reactive Protein 74.1 H, Total Protein 5.7 L, Albumin 2.8 L, Globulin 2.9, Albumin/Globulin Ratio 1.0 L 12/08/23 14:10: WBC 10.8, RBC 3.22 L, Hgb 10.6 L, Hct 32.8 L, MCV 101.9 H, MCH 33.1 H, MCHC 32.4, RDW 15.6, Plt Count 222, MPV 8.5, Neut % (Auto) 64.3, Lymph % (Auto) 27.9, O'Brien % (Auto) 7.1, Eos % (Auto) 0.1, Baso % (Auto) 0.6, Neut # (Auto) 7.0, Lymph # (Auto) 3.0, O'Brien # (Auto) 0.8, Eos # (Auto) 0.0, Baso # (Auto) 0.1, ESR 113 H, Lactate 0.9, Total Creatine Kinase 159 12/08/23 16:16: Urine Color Yellow, Urine Appearance Clear, Urine pH 7.0, Ur Specific [place] 1.020, Urine Protein Trace, Urine Glucose (UA) Negative, Urine Ketones Trace, Urine Blood Trace-i, Urine Nitrate Negative, Urine Bilirubin Negative, Urine Urobilinogen 0.2, Ur Leukocyte Esterase Negative, Urine RBC Occasional, Urine WBC Occasional, Ur Squamous Epith Cells Occasional, Urine Bacteria None 12/08/23 14:10 12/08/23 14:00 Orders (Tests/Meds): ED MEDICATIONS Generic Name Dose Route Start Last Admin Trade Name Freq PRN Reason Stop Dose Admin Sodium Chloride 10 ml 12/08/23 15:24 12/08/23 15:25 Sodium Chloride 0.9% 10ml Syr (Rad Only) IV 01/07/24 15:23 10 ml NEEDED PRN Administration Maintain IV Site Discontinued Medications Generic Name Dose Route Start Last Admin Trade Name Freq PRN Reason Stop Dose Admin Lactated Ringer's 500 mls @ 999 mls/hr 12/08/23 15:03 12/08/23 16:14 Lactated Ringer's 500ml IV 12/08/23 15:33 999 mls/hr .Q31M ONE Administration Potassium Chloride/Water 100 mls @ 50 mls/hr 12/08/23 15:03 12/08/23 16:34 Potassium Chloride 20meq/100ml Ivpb IV 12/08/23 17:02 50 mls/hr ONCE ONE Administration Iopamidol 120 ml 12/08/23 15:24 12/08/23 15:24 Iopamidol-370 (76%);100ml Bottle IV 12/08/23 15:25 120 ml ONCE ONE Administration Morphine Sulfate 4 mg 12/08/23 13:51 12/08/23 14:01 Morphine 4mg/Ml Syringe IV 12/08/23 13:52 4 mg ONCE ONE Administration Ondansetron HCl 4 mg 12/08/23 13:51 12/08/23 14:02 Ondansetron 4mg/2ml Vial IV 12/08/23 13:52 4 mg ONCE ONE Administration Sodium Chloride 50 ml 12/08/23 15:24 12/08/23 15:24 0.9 % Sodium Chloride 50 Ml Vial IV 12/08/23 15:25 50 ml ONCE ONE Administration ORDERS Category Date Time Status CT angio abdomen/femoral Stat Cat Scan 12/08/23 13:[address] lumbar spine wo/w con Stat Cat Scan 12/08/23 13:[address] thoracic spine wo/w con Stat Cat Scan 12/08/23 13:51 Completed C-Reactive Protein Stat Lab 12/08/23 14:00 Completed CK [Creatine Kinase] Stat Lab 12/08/23 14:10 Completed Complete Blood Count Auto Diff Stat Lab 12/08/23 14:10 Completed Comprehensive Metabolic Panel Stat Lab 12/08/23 14:00 Completed Erythrocyte Sedimentation Rate Stat Lab 12/08/23 14:10 Completed Lactic Acid Stat Lab 12/08/23 14:10 Completed UA [Urinalysis and Microscopic] Stat Lab 12/08/23 16:16 Completed Blood Culture Stat Micro 12/08/23 15:40 Received Medical Decision Narrative: In summary, this patient is a 83 year old male presenting to the Emergency Department for evaluation of acute on chronic back pain in the setting of discitis, for which he is currently receiving treatment. Differential diagnoses considered include but are not limited to acute on chronic pain, spinal cord compression, aortic pathology, disc herniation, worsening discitis, failed outpatient treatment. Ruling out the most morbid conditions drove assessment. I reviewed patient's past medical records and noted multiple previous evaluations for back pain in the past. Patient was reportedly transferred to [facility], at which point the diagnosis of discitis was made. On exam, the patient is lying in bed in no acute distress with reassuring vital signs on cardiac telemetry. He is alert and conversational, but history is difficult to obtain from him. He has intact sensation in his lower extremities but limited motor secondary to pain. Workup included CBC, CMP, ESR, CRP, lactic acid, urinalysis, CTA abdomen/femoral, CT T/L-spine with and without contrast. He was given IV morphine and Zofran for symptomatic improvement. Postvoid residual bladder scan ordered. Patient care was signed out to the oncoming provider, Dr. Love. <Kulwant Love MD - Last Filed: 12/08/23 18:27> Vital Signs: 12/08/23 13:16 12/08/23 13:30 12/08/23 14:00 Temperature 97.8 F Temperature Source Oral Pulse Rate 77 86 Pulse Rate [Radial] 82 Respiratory Rate 16 Blood Pressure 154/92 H 163/95 H Blood Pressure [Right Arm] 161/95 H Blood Pressure Mean Blood Pressure Mean [Right Arm] 117 Blood Pressure Source [Right Arm] Automatic Cuff Blood Pressure Position [Right Arm] Sitting 02 Sat by Pulse Oximetry 95 97 95 Oxygen Delivery Method Room Air 12/08/23 15:30 12/08/23 16:00 12/08/23 16:30 Temperature Temperature Source Pulse Rate 75 95 H 80 Pulse Rate [Radial] Respiratory Rate 24 22 Blood Pressure 145/95 H 156/99 H 154/84 H Blood Pressure [Right Arm] Blood Pressure Mean 115 109 Blood Pressure Mean [Right Arm] Blood Pressure Source [Right Arm] Blood Pressure Position [Right Arm] 02 Sat by Pulse Oximetry 92 L 92 L 95 Oxygen Delivery Method 12/08/23 17:00 12/08/23 17:30 Temperature Temperature Source Pulse Rate 79 81 Pulse Rate [Radial] Respiratory Rate 21 14 Blood Pressure 156/90 H 158/89 H Blood Pressure [Right Arm] Blood Pressure Mean 106 Blood Pressure Mean [Right Arm] Blood Pressure Source [Right Arm] Blood Pressure Position [Right Arm] 02 Sat by Pulse Oximetry 94 L 91 L Oxygen Delivery Method Lab Data Lab Results 12/08/23 14:00: Sodium 136, Potassium 3.0 L, Chloride 102, Carbon Dioxide 27, Anion Gap 10.0, BUN 7 L, Creatinine 0.60 L, Estimated Creat Clear 68, Estimated GFR 128, Est GFR ( Amer) 155, Glucose 107 H, Calcium 8.2 L, Total Bilirubin 0.7, AST 60 H, ALT 33, Alkaline Phosphatase 201 H, C-Reactive Protein 74.1 H, Total Protein 5.7 L, Albumin 2.8 L, Globulin 2.9, Albumin/Globulin Ratio 1.0 L 12/08/23 14:10: WBC 10.8, RBC 3.22 L, Hgb 10.6 L, Hct 32.8 L, MCV 101.9 H, MCH 33.1 H, MCHC 32.4, RDW 15.6, Plt Count 222, MPV 8.5, Neut % (Auto) 64.3, Lymph % (Auto) 27.9, O'Brien % (Auto) 7.1, Eos % (Auto) 0.1, Baso % (Auto) 0.6, Neut # (Auto) 7.0, Lymph # (Auto) 3.0, O'Brien # (Auto) 0.8, Eos # (Auto) 0.0, Baso # (Auto) 0.1, ESR 113 H, Lactate 0.9, Total Creatine Kinase 159 12/08/23 16:16: Urine Color Yellow, Urine Appearance Clear, Urine pH 7.0, Ur Specific [place] 1.020, Urine Protein Trace, Urine Glucose (UA) Negative, Urine Ketones Trace, Urine Blood Trace-i, Urine Nitrate Negative, Urine Bilirubin Negative, Urine Urobilinogen 0.2, Ur Leukocyte Esterase Negative, Urine RBC Occasional, Urine WBC Occasional, Ur Squamous Epith Cells Occasional, Urine Bacteria None Orders (Tests/Meds): ED MEDICATIONS Generic Name Dose Route Start Last Admin Trade Name Freq PRN Reason Stop Dose Admin Sodium Chloride 10 ml 12/08/23 15:24 12/08/23 15:25 Sodium Chloride 0.9% 10ml Syr (Rad Only) IV 01/07/24 15:23 10 ml NEEDED PRN Administration Maintain IV Site Discontinued Medications Generic Name Dose Route Start Last Admin Trade Name Freq PRN Reason Stop Dose Admin Lactated Ringer's 500 mls @ 999 mls/hr 12/08/23 15:03 12/08/23 16:14 Lactated Ringer's 500ml IV 12/08/23 15:33 999 mls/hr .Q31M ONE Administration Potassium Chloride/Water 100 mls @ 50 mls/hr 12/08/23 15:03 12/08/23 16:34 Potassium Chloride 20meq/100ml Ivpb IV 12/08/23 17:02 50 mls/hr ONCE ONE Administration Iopamidol 120 ml 12/08/23 15:24 12/08/23 15:24 Iopamidol-370 (76%);100ml Bottle IV 12/08/23 15:25 120 ml ONCE ONE Administration Morphine Sulfate 4 mg 12/08/23 13:51 12/08/23 14:01 Morphine 4mg/Ml Syringe IV 12/08/23 13:52 4 mg ONCE ONE Administration Ondansetron HCl 4 mg 12/08/23 13:51 12/08/23 14:02 Ondansetron 4mg/2ml Vial IV 12/08/23 13:52 4 mg ONCE ONE Administration Sodium Chloride 50 ml 12/08/23 15:24 12/08/23 15:24 0.9 % Sodium Chloride 50 Ml Vial IV 12/08/23 15:25 50 ml ONCE ONE Administration ORDERS Category Date Time Status CT angio abdomen/femoral Stat Cat Scan 12/08/23 13:[address] lumbar spine wo/w con Stat Cat Scan 12/08/23 13:[address] thoracic spine wo/w con Stat Cat Scan 12/08/23 13:51 Completed C-Reactive Protein Stat Lab 12/08/23 14:00 Completed CK [Creatine Kinase] Stat Lab 12/08/23 14:10 Completed Complete Blood Count Auto Diff Stat Lab 12/08/23 14:10 Completed Comprehensive Metabolic Panel Stat Lab 12/08/23 14:00 Completed Erythrocyte Sedimentation Rate Stat Lab 12/08/23 14:10 Completed Lactic Acid Stat Lab 12/08/23 14:10 Completed UA [Urinalysis and Microscopic] Stat Lab 12/08/23 16:16 Completed Blood Culture Stat Micro 12/08/23 15:40 Received Medical Decision Narrative: In summary, this patient is a 83 year old male presenting to the Emergency Department for evaluation of acute on chronic back pain in the setting of discitis, for which he is currently receiving treatment. Differential diagnoses considered include but are not limited to acute on chronic pain, spinal cord compression, aortic pathology, disc herniation, worsening discitis, failed outpatient treatment. Ruling out the most morbid conditions drove assessment. I reviewed patient's past medical records and noted multiple previous evaluations for back pain in the past. Patient was reportedly transferred to [facility], at which point the diagnosis of discitis was made. On exam, the patient is lying in bed in no acute distress with reassuring vital signs on cardiac telemetry. He is alert and conversational, but history is difficult to obtain from him. He has intact sensation in his lower extremities but limited motor secondary to pain. Workup included CBC, CMP, ESR, CRP, lactic acid, urinalysis, CTA abdomen/femoral, CT T/L-spine with and without contrast. He was given IV morphine and Zofran for symptomatic improvement. Postvoid residual bladder scan ordered. Patient care was signed out to the oncoming provider, Dr. Love. Ivan: I assumed primary responsibility for this patient after signout from previous physician. Patient states he has a history of hypertension, hyperlipidemia, CAD status post stenting, CHF (ischemic cardiomyopathy on outside hospital chart review with AICD in place, most recent EF 20%), COPD not on home oxygen, thoracic aortic aneurysm greater than 5.1 cm, A-fib on Eliquis who is presenting for back pain and weakness in his legs. On my independent evaluation of patient, patient stating that he has moderate pain in his lower back at baseline, started having severe, 10 out of 10 pain in his lower back over the past couple of days associated with movement. He generally has a spike in pain, but this is worse than usual. States that he is unable to tell if he is weaker, or if the weakness is due to pain. On my physical exam, patient's lower extremity hip flexion, knee flexion and extension are severely limited, but symmetric. Crying out in pain with even minimal movements. No saddle anesthesia. Reflexes 1+ bilaterally patellar and Achilles. Patient able to urinate spontaneously after couple of hours of trying, postvoid residual 120 mL. Given patient's complex medical history, current worsening pain and weakness in the setting of known discitis and osteomyelitis of the lumbar spine, ESR elevation 113, CRP elevation 74 and concern for new neurologic symptoms, CTs ordered. Independent interpretation of CTs demonstrate no acute aortic or arterial pathology. CT thoracolumbar spine with concern for osteomyelitis with cortical erosions at L2 and L3, which appear to be much worse than previously imaged in October 2023. Out of concern for worsening spinal pathology and lower extremity weakness versus further degenerative change exacerbating weakness, [facility] was contacted and case was discussed at length. I feel the patient would benefit from MRI, I discussed this with Dr. Lincoln, accepting physician who is graciously agreeable to transfer. Critical Care <Yani Piña DO - Last Filed: 12/08/23 16:22> Critical Care Time Critical Care Time: No <Kulwant Love MD - Last Filed: 12/08/23 18:27> Critical Care Time Critical Care Time: Yes (neuro, msk, ID) Attestation: On 12/08/23, the high probability of a clinically significant, sudden or life threatening deterioration of the following system(s) required my full and direct attention, intervention and personal management. The time I documented below is in addition to time spent performing reported procedures but includes the following listed in this critical care notation. Total Time Total Critical Care Time: 45
--- NOTE | 2023-12-08 15:12 | PC.NURSE ---
Pt returned to room from RAD
[2023-12-08] MEDS: 0.9 % SODIUM CHLORIDE 50 ML VIAL IV (15:24)
[2023-12-08] MEDS: IOPAMIDOL-370 (76%);100ML BOTTLE 120 ML IV (15:24)
[2023-12-08] MEDS: SODIUM CHLORIDE 0.9% 10ML SYR (RAD ONLY) 10 ML IV (15:25)
[2023-12-08 15:28] LABS: Erythrocyte Sedimentation Rate 113 mm/hr (0-20)
[2023-12-08 15:52] LABS: Basophils # 0.1 K/mm3 (0-0.2); Basophils % 0.6 % (0.1-2.0); Eosinophils % 0.1 % (0.1-12.0); Hematocrit 32.8 % (42.0-52.0); Hemoglobin 10.6 g/dL (14.1-18.0); Lymphocytes % 27.9 % (10-50); Mean Corpuscular HGB Conc 32.4 g/dL (31.8-35.4); Mean Corpuscular Hemoglobin 33.1 pg (27.0-31.2); Mean Corpuscular Volume 101.9 fl (80-94); Mean Platelet Volume 8.5 fl (7.4-10.4); Monocytes # 0.8 K/mm3 (0.1-1.0); Monocytes % 7.1 % (1.7-9.3); Neutrophils % 64.3 % (37.0-80.0); Platelet Count 222 K/mm3 (142-424); Red Blood Count 3.22 M/mm3 (4.60-6.20); Red Cell Distribution Width 15.6 % (11.5-17.5); White Blood Count 10.8 K/mm3 (4.8-10.8)
[2023-12-08] MEDS: RINGERS SOLUTION,LACTATED 500 ML 999 ML IV (16:14)
[2023-12-08] MEDS: KCl 20mEq/100ml 100 ML 50 MEQ IV (16:34)
--- NOTE | 2023-12-08 16:38 | PC.NURSE ---
post void residual bladder scan showed 120 ml
[2023-12-08 16:40] LABS: Microscopic, Urine URINE MICROSCOPIC (MICROSCOPIC)
[2023-12-08 16:44] LABS: Appearance,Urine CLEAR (Clear); Bilirubin,Urine Negative (Negative); Blood, Urine TRACE-I (Negative); Color,Urine YELLOW (Yellow); Glucose,Urine (UA) Negative (Negative); Ketones,Urine TRACE (Negative); Leukocyte Esterase,Urine Negative (Negative); Nitrate,Urine Negative (Negative); Protein,Urine TRACE (Negative); Urobilinogen,Urine 0.2 EU/dl (0.2)
--- NOTE | 2023-12-08 16:50 | PC.NURSE ---
calling [facility] at this time
[2023-12-08 17:13] LABS: RBC,Urine Occasional #/hpf (0-3); Squamous Epithelial Cell,Urine Occasional #/hpf (0-5); WBC,Urine Occasional #/hpf (0-3)
--- NOTE | 2023-12-08 17:17 | PC.NURSE ---
calling at this time.
[2023-12-08 17:29] LABS: Creatine Kinase 159 U/L (55-170)
--- NOTE | 2023-12-08 17:56 | PC.NURSE ---
[facility] called for update, this was given
--- NOTE | 2023-12-08 17:57 | PC.NURSE ---
Dr. Love s/w hospitalist at [facility]
--- NOTE | 2023-12-08 20:21 | PC.NURSE ---
[facility] contacted to confirm that current shift was aware that there was a patient waiting to be transported
== END 2023-12-08 21:24 | disposition short-term general hospital (02) ==
PROVIDERS: Emergency Medicine; Emergency Provider Emergency Medicine
DX: M46.26 Osteomyelitis of vertebra, lumbar region (principal); M54.50 Low back pain, unspecified; G89.29 Other chronic pain; R29.898 Other symptoms and signs involving the musculoskeletal system; E87.6 Hypokalemia; I48.0 Paroxysmal atrial fibrillation; J44.9 Chronic obstructive pulmonary disease, unspecified; I11.0 Hypertensive heart disease with heart failure; I50.22 Chronic systolic (congestive) heart failure; E78.5 Hyperlipidemia, unspecified; Z95.810 Presence of automatic (implantable) cardiac defibrillator; Z87.891 Personal history of nicotine dependence; Z79.01 Long term (current) use of anticoagulants
CPT/HCPCS: 36415; 72130; 72133; 75635; 80053; 81001; 82550; 83605; 85025; 85651; 86140; 87040; 96365; 96366; 96375; 96376; 99285; J2405; Q9967

== ENCOUNTER 2023-12-27 15:05 | Inpatient (IN) | payer MEDICARE, SELFPAY ==
[2023-12-27] VITALS (19 sets, daily range): BP systolic 107–159; BP diastolic 71–100; PULSE 61–109; RESP 15–20; TEMP 35.9–43; O2SAT 90–96; BMI 25.0; BMI 25.8
--- NOTE | 2023-12-27 15:03 | ED_ITS ---
<Statement entered by Tip Alejandro MD - 12/27/23 22:56> I was consulted by the YIFAN, and we discussed the complexity of the problems being addressed. I approved the treatment and management plan for this patient's care in the emergency department, thus performing a substantive portion of the medical decision making. Tip Alejandro MD, WENDY, FACEP Discharge Plan Disposition Patient Disposition: Admitted Condition: Critical Chief Complaint: Abdominal Pain Prescriptions Prescriptions: No Action bisoprolol fumarate 10 mg tablet 10 mg PO DAILY Qty: 90 3RF allopurinol 100 mg tablet 100 mg PO DAILY PreserVision AREDS 4,296 mcg-226 mg-90 mg capsule 1 cap PO DAILY levothyroxine 100 mcg tablet 100 mcg PO DAILY Qty: 90 Eliquis 5 mg tablet 5 mg PO BID tamsulosin 0.4 mg Capsule 0.4 mg PO HS methocarbamol 500 mg tablet 500 mg PO Q12HP PRN (Reason: muscle spasm) Qty: 20 0RF dexamethasone 6 mg tablet 6 mg PO DAILY Qty: 5 0RF pravastatin 40 mg tablet 40 mg PO DAILY Entresto 97-103 mg tablet 1 tab PO BID Patient Comments: TAKE 1 TABLET TWICE DAILY Trelegy Ellipta 100-62.5-25 mcg blister with device 2 inh INHALATION DAILY lidocaine 5 % adhesive patch,medicated 1 patch topical DAILY Qty: 30 0RF Rx Instructions: leave on most painful area for up to 12 hrs Referrals Follow up/Referrals: Provider,Referral, [Primary Care Provider] - See instructions Clinical Impressions Clinical Impression: Small bowel obstruction Discharge ED Provider: Tip Alejandro General Adult HPI General Chief complaint: Abdominal Pain Stated complaint: ABD pain Time Seen by Provider: 12/27/23 15:05 History of Present Illness HPI narrative: Patient presents for evaluation of nausea vomiting abdominal pain. Patient has past medical history of discitis for which she is currently getting IV vancomycin via PICC line, chronic back pain, atrial fibrillation, BiV-ICD, hypertension, history of a lung mass,, history of abdominal aortic aneurysm, and left-sided inguinal hernia with nonobstructing colonic contents in the past and previous colitis. Patient had acute onset of periumbilical abdominal pain with associated bilious nausea and vomiting. He denies diarrhea. He denies recent bowel movement but reports that he has passed gas. Denies chest pain shortness of breath fever chills hemoptysis hematochezia melena hematemesis hematuria Related Data Home Medications Medication Instructions Recorded Confirmed levothyroxine 100 mcg tablet 100 mcg PO DAILY #90 tabs 12/22/18 11/02/23 tamsulosin 0.4 mg capsule 0.4 mg PO HS 01/15/23 11/02/23 apixaban 5 mg tablet (Eliquis) 5 mg PO BID 01/20/23 11/02/23 allopurinol 100 mg tablet 100 mg PO DAILY 03/09/23 11/02/23 vitamins A,C,Q-oqwb-sswrlg 4,296 1 cap PO DAILY 03/09/23 11/02/23 mcg-226 mg-90 mg capsule (PreserVision AREDS) fluticasone fur. 100 mcg-umeclid 2 inh inhalation DAILY 11/02/23 11/02/23 62.5 mcg-vilant 25 mcg inhalat.powder (Trelegy Ellipta) pravastatin 40 mg tablet 40 mg PO DAILY 11/02/23 11/02/23 sacubitril 97 mg-valsartan 103 mg 1 tab PO BID 11/02/23 11/02/23 tablet (Entresto) Previous Rx's Medication Instructions Recorded bisoprolol fumarate 10 mg tablet 10 mg PO DAILY #90 tabs 02/23/23 methocarbamol 500 mg tablet 500 mg PO Q12HP PRN muscle spasm 07/06/23 #20 tabs lidocaine 5 % topical patch 1 patch topical DAILY #30 ea 10/29/23 dexamethasone 6 mg tablet 6 mg PO DAILY #5 tabs 10/30/23 Allergies Allergy/AdvReac Type Severity Reaction Status Date / Time No Known Allergies Allergy Verified 06/24/23 10:25 [facility] Disclaimer: The information contained in this section may have been updated after the patient was seen, as this information can be updated by other users. 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) Palpitations Atrial flutter Thoracic ascending aortic aneurysm COPD (chronic obstructive pulmonary disease) Chest pain Atrial fibrillation Chronic systolic heart failure Dyspnea HLD (hyperlipidemia) HTN (hypertension) Surgical History Biventricular ICD (implantable cardioverter-defibrillator) in place Automatic implantable cardioverter-defibrillator in situ Family History Other Family history of stroke Social History Smoking Status: Former smoker how long ago did patient quit smokin years ago alcohol intake: never substance use type: denies use current occupational status: retired Travel in the last 8 weeks: None household members: none housing: house caffeine: Yes (coffee) ROS Obtained: Yes Systems reviewed as appropriate & no additional complaints except as documented Physical Exam General General appearance: alert and in no apparent distress Head Head exam: atraumatic and normal inspection Eye Eye exam: Present normal appearance Respiratory Respiratory exam: Present normal lung sounds bilaterally Cardiovascular Cardiovascular exam: Present normal rhythm and tachycardia Abdominal Exam Abdominal exam: Present soft, tenderness (Diffuse abdominal tenderness to palpation but seems to be more focal around the umbilicus) and normal bowel sounds; Absent guarding or rebound Extremities Exam Extremities exam: Present normal inspection and full ROM Back Exam Back exam: Present normal inspection and full ROM; Absent tenderness Neurological Exam Neurological exam: Present alert, oriented X3 and CN II-XII intact Psychiatric Psychiatric exam: Present normal affect and normal mood Medical Decision Making Medical Records Medical records reviewed: Yes I reviewed the patient's medical records. Richar Inquiry Pt receiving controlled substance: No Vital Signs: 12/27/23 15:05 Temperature 98.7 F Temperature Source Oral Pulse Rate [Right Radial] 109 H Respiratory Rate 20 Blood Pressure [Right Arm] 159/100 H Blood Pressure Mean [Right Arm] 119 02 Sat by Pulse Oximetry 95 Oxygen Delivery Method Room Air Lab Data Lab results reviewed: Yes I reviewed the patient's lab results. Lab Results 12/27/23 15:15: WBC 14.7 H, RBC 3.72 L, Hgb 12.1 L, Hct 37.0 L, MCV 99.5 H, MCH 32.5 H, MCHC 32.6, RDW 15.5, Plt Count 181, MPV 8.6, Neut % (Auto) 73.0, Lymph % (Auto) 19.9, [place] % (Auto) 5.3, Eos % (Auto) 1.0, Baso % (Auto) 0.9, Neut # (Auto) 10.7 H, Lymph # (Auto) 2.9, [place] # (Auto) 0.8, Eos # (Auto) 0.1, Baso # (Auto) 0.1, PT 13.0 H, INR 1.22 H, Sodium 136, Potassium 3.1 L, Chloride 103, Carbon Dioxide 26, Anion Gap 10.1, BUN 19, Creatinine 0.80, Estimated Creat Clear 61, Estimated GFR 92, Est GFR ( Amer) 111, Glucose 153 H, Lactate 1.1, Calcium 9.0, Magnesium 1.6, Total Bilirubin 0.5, AST 64 H, ALT 89 H, A lkaline Phosphatase 205 H, Total Protein 5.8 L, Albumin 3.3 L, Globulin 2.5, Albumin/Globulin Ratio 1.3, Lipase 39 12/27/23 15:15 12/27/23 15:15 Orders (Tests/Meds): ED MEDICATIONS Discontinued Medications Generic Name Dose Route Start Last Admin Trade Name Cindy PRN Reason Stop Dose Admin Acetaminophen 1,000 mg 12/27/23 15:08 12/27/23 15:26 Acetaminophen 1,000mg/100ml Vial IV 12/27/23 15:09 1,000 mg ONCE ONE Administration Lactated Ringer's 1,000 mls @ 999 mls/hr 12/27/23 15:08 12/27/23 15:26 Lactated Ringer's 1000 Ml Bag IV 12/27/23 16:08 999 mls/hr .Q1H1M ONE Administration Iopamidol 75 ml 12/27/23 15:37 12/27/23 15:38 Iopamidol-370 (76%);100ml Bottle IV 12/27/23 15:38 75 ml ONCE ONE Administration Ondansetron HCl 4 mg 12/27/23 15:08 12/27/23 15:26 Ondansetron 4mg/2ml Vial IV 12/27/23 15:09 4 mg ONCE ONE Administration Sodium Chloride 10 ml 12/27/23 15:37 12/27/23 15:38 Sodium Chloride 0.9% 10ml Syr (Rad Only) IV 12/27/23 15:38 10 ml ONCE ONE Administration ORDERS Category Date Time Status CT abdomen pelvis w con Stat Cat Scan 12/27/23 15:08 Completed CBC w/Auto Diff [Complete Blood Count Auto Diff] Stat Lab 12/27/23 15:15 Completed CMP [Comprehensive Metabolic Panel] Stat Lab 12/27/23 15:15 Completed INR [Prothrombin Time INR] Stat Lab 12/27/23 15:15 Completed Lactic Acid Stat Lab 12/27/23 15:15 Completed Lipase Stat Lab 12/27/23 15:15 Completed Magnesium Stat Lab 12/27/23 15:15 Completed UA [Urinalysis and Microscopic] Stat Lab 12/27/23 15:09 Ordered Medical Decision Narrative: In summary patient is a 83-year-old male who presents to the emergency department for evaluation of nausea vomiting and acute abdominal pain. Patient is normotensive with a blood pressure 159/100 tachycardic at 109 satting at 95% on room air breathing 20 times a minute upon arrival, afebrile. Physical exam is remarkable for abdominal tenderness to palpation diffusely but more focally around the umbilicus without rebound or guarding or rigidity.. Differential diagnosis includes bowel obstruction versus gastroenteritis versus acute pancreatitis versus ruptured aortic aneurysm etc. Initial workup will be conducted with hematologic labs CT scan abdomen pelvis with contrast urinalysis. Initial interventions include LR bolus, Tylenol. Initial workup reviewed by me no leukocytosis with a left shift and INR 1.22 CMP shows that he has elevated transaminases however that is stable from previous and my informal interpretation of his CT scan abdomen pelvis prior to radiology read shows what appears to be a small bowel obstruction with possible mesenteric volvulus and that was confirmed by radiology. Upon repeat evaluation patient did report some improvement in his discomfort but still reports diffuse abdominal pain. Given this I had interactive discussion with Dr. Sood of general surgery about patient management. He is on the way in to evaluate the patient for operative intervention. Critical Care Critical Care Time Critical Care Time: No
--- NOTE | 2023-12-27 15:08 | CT_ITS ---
PROCEDURE INFORMATION: Exam: CT Abdomen And Pelvis With Contrast Exam date and time: 12/27/2023 3:36 PM Age: 83 years old Clinical indication: Nausea; Additional info: Nausea vomiting acute abdominal pain TECHNIQUE: Imaging protocol: Computed tomography of the abdomen and pelvis with contrast. Radiation optimization: All CT scans at this facility use at least one of these dose optimization techniques: automated exposure control; mA and/or kV adjustment per patient size (includes targeted exams where dose is matched to clinical indication); or iterative reconstruction. Contrast material: ISOVUE; Contrast volume: 75 ml; Contrast route: IV; COMPARISON: CT ANGIO ABDOMEN/FEMORAL 12/08/2023 2:54 PM FINDINGS: Lungs: Pleuroparenchymal scarring. Small focus of probable round atelectasis posteriorly on the right. Trace pleural effusions. Heart: Enlarged heart. Pacemaker. Liver: Normal. No mass. Gallbladder and bile ducts: Normal. No calcified stones. No ductal dilation. Pancreas: Normal. No ductal dilation. Spleen: Normal. No splenomegaly. Adrenal glands: Normal. No mass. Kidneys and ureters: Renal cysts, largest on the right 3.1 cm and indeterminate 2.3 cm left renal possible hyperdense cyst not appreciably changed. Stomach and bowel: Distended and obstructed appearing small bowel loops anteriorly left mid abdomen, measuring up to 4.4 cm in diameter with focus of mesenteric volvulus at this level. Surgical consultation is recommended. Appendix: Normal appendix. Intraperitoneal space: Trace amount of ascites. Vasculature: Severe atherosclerosis. Mild aneurysmal dilatation infrarenal abdominal aorta 3.3 cm in diameter again evident. Lymph nodes: Unremarkable. No enlarged lymph nodes. Urinary bladder: Unremarkable as visualized. Reproductive: Large prostate. Bones/joints: No acute fracture. There are some new limited erosive appearing changes inferior endplate of L2 and anteriorly at superior endplate of L3. Is there any clinical evidence for discitis? No visualized abscess. Soft tissues: Slight protrusion of nonobstructed large bowel into small right inguinal hernia. Minimal fluid without abscess in the hernia sac. Minimal umbilical hernia containing fat. IMPRESSION: 1. Distended and obstructed appearing small bowel loops anteriorly left mid abdomen, measuring up to 4.4 cm in diameter with focus of mesenteric volvulus at this level. Surgical consultation is recommended. 2. Trace amount of ascites. 3. There are some new limited erosive appearing changes inferior endplate of L2 and anteriorly at superior endplate of L3. Is there any clinical evidence for discitis? No visualized abscess. COMMENTS: Consistent with the [employer]'s Incidental Findings Committee white paper (J Am Kumar Radiol 2018): Any incidental renal lesion less than 1 cm or classified as too small to characterize, or any incidental cystic renal lesion characterized as simple-appearing, is likely benign. No follow-up imaging is recommended for these lesions per consensus recommendations based on imaging criteria.
[2023-12-27 15:24] LABS: Basophils # 0.1 K/mm3 (0-0.2); Basophils % 0.9 % (0.1-2.0); Eosinophils # 0.1 K/mm3 (0.0-0.4); Hemoglobin 12.1 g/dL (14.1-18.0); Lymphocytes # 2.9 K/mm3 (0.7-4.5); Lymphocytes % 19.9 % (10-50); Mean Corpuscular HGB Conc 32.6 g/dL (31.8-35.4); Mean Corpuscular Hemoglobin 32.5 pg (27.0-31.2); Mean Corpuscular Volume 99.5 fl (80-94); Mean Platelet Volume 8.6 fl (7.4-10.4); Monocytes # 0.8 K/mm3 (0.1-1.0); Monocytes % 5.3 % (1.7-9.3); Neutrophils # 10.7 K/mm3 (1.8-7.8); Platelet Count 181 K/mm3 (142-424); Red Blood Count 3.72 M/mm3 (4.60-6.20); Red Cell Distribution Width 15.5 % (11.5-17.5); White Blood Count 14.7 K/mm3 (4.8-10.8)
[2023-12-27] MEDS: ACETAMINOPHEN 1,000MG/100ML VIAL 1000 MG IV (15:26)
[2023-12-27] MEDS: ONDANSETRON 4MG/2ML VIAL 4 MG IV (15:26)
[2023-12-27] MEDS: LACTATED RINGERS 1000ML 1,000 ML 999 ML IV (15:26)
[2023-12-27 15:29] LABS: Chloride 103 mmol/L (98-107)
[2023-12-27 15:30] LABS: Potassium 3.1 mmoL/L (3.5-5.1); Sodium 136 mmol/L (136-145)
[2023-12-27 15:32] LABS: Alanine Aminotransferase 89 U/L (12-78); Alkaline Phosphatase 205 U/L (38-126); Aspartate Amino Transferase 64 U/L (17-59); Bilirubin,Total 0.5 mg/dl (0.2-1.3); Blood Urea Nitrogen 19 mg/dl (9-20); Creatinine Clearance Estimated 61 mL/min (50-200); Estimated Glomerular Filt Rate 92 ml/min (>60); GFR (African American) 111 ML/MIN (>60)
[2023-12-27 15:33] LABS: Albumin Level 3.3 g/dl (3.5-5.0); Albumin/Globulin Ratio 1.3 (1.1-1.8); Anion Gap 10.1 mEq/L (5-15); Carbon Dioxide 26 mmol/L (22.0-30.0); Globulin 2.5 g/dL (1.3-3.2); Glucose 153 mg/dl (74-100); INR 1.22 (0.9-1.1); Lactic Acid 1.1 mmol/L (0.7-2.1); Lipase 39 U/L (23-300); Magnesium 1.6 mg/dl (1.6-2.3); Total Protein,Serum 5.8 g/dl (6.3-8.2)
[2023-12-27] MEDS: SODIUM CHLORIDE 0.9% 10ML SYR (RAD ONLY) 10 ML IV (15:38)
[2023-12-27] MEDS: IOPAMIDOL-370 (76%);100ML BOTTLE 75 ML IV (15:38)
--- NOTE | 2023-12-27 17:12 | PC.NURSE ---
DR ACOSTA PAGED
--- NOTE | 2023-12-27 17:13 | PC.NURSE ---
ANIVAL GOOD SPEAKING WITH DR ACOSTA
--- NOTE | 2023-12-27 17:13 | PC.NURSE ---
Jas speaking with Dr. Sood
--- NOTE | 2023-12-27 17:15 | PC.NURSE ---
[employer] NOTIFIED TO CALL IN SURGERY TEAM PER DR ACOSTA
--- NOTE | 2023-12-27 17:17 | PC.NURSE ---
CONSENT SIGNED BY DAUGHTER
--- NOTE | 2023-12-27 17:20 | PC.NURSE ---
1715 - NOTIFIED BY ER STAFF TO [facility] [employer] [facility] SURGERY TEAM PER DR ACOSTA, GOLD LETTERER CALLED AND INSTRUCTED TO PAGE THEM TO [phone] - CHRISTEN RETURNED CALL 1718 - ARPIT RETURNED CALL 1719 - LAINA RETURNED CALL
--- NOTE | 2023-12-27 17:30 | PC.NURSE ---
DR ACOSTA AT BEDSIDE
--- NOTE | 2023-12-27 17:35 | PC.NURSE ---
Patient placed in gown and brief changed.
--- NOTE | 2023-12-27 17:44 | P.CONS_ITS ---
History of Present Illness *Admission Date: 12/27/23 *Reason for visit:: Bowel obstruction *History of present illness: This is an 83-year-old gentleman seen in consultation after evaluation emergency department for increasing abdominal pain and nausea. A CT scan revealed evidence of distended small bowel loops and mesenteric volvulus. [facility] Disclaimer: The information contained in this section may have been updated after the patient was seen, as this information can be updated by other users. 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) Palpitations Atrial flutter Thoracic ascending aortic aneurysm COPD (chronic obstructive pulmonary disease) Chest pain Atrial fibrillation Chronic systolic heart failure Dyspnea HLD (hyperlipidemia) HTN (hypertension) Surgical History Biventricular ICD (implantable cardioverter-defibrillator) in place Automatic implantable cardioverter-defibrillator in situ Family History Other Family history of stroke Social History Smoking Status: Former smoker how long ago did patient quit smokin years ago alcohol intake: never substance use type: denies use current occupational status: retired Travel in the last 8 weeks: None household members: none housing: house caffeine: Yes (coffee) Meds Home Medications and Allergies Home Medications Medication Instructions Recorded Confirmed Type levothyroxine 100 mcg tablet 100 mcg PO DAILY #90 tabs 12/22/18 11/02/23 History tamsulosin 0.4 mg capsule 0.4 mg PO HS 01/15/23 11/02/23 History apixaban 5 mg tablet (Eliquis) 5 mg PO BID 01/20/23 11/02/23 History bisoprolol fumarate 10 mg tablet 10 mg PO DAILY #90 tabs 02/23/23 11/02/23 Rx allopurinol 100 mg tablet 100 mg PO DAILY 03/09/23 11/02/23 History vitamins A,C,W-munb-lxdlwo 4,296 1 cap PO DAILY 03/09/23 11/02/23 History mcg-226 mg-90 mg capsule (PreserVision AREDS) methocarbamol 500 mg tablet 500 mg PO Q12HP PRN muscle spasm 07/06/23 11/02/23 Rx #20 tabs lidocaine 5 % topical patch 1 patch topical DAILY #30 ea 10/29/23 11/02/23 Rx dexamethasone 6 mg tablet 6 mg PO DAILY #5 tabs 10/30/23 11/02/23 Rx fluticasone fur. 100 mcg-umeclid 2 inh inhalation DAILY 11/02/23 11/02/23 History 62.5 mcg-vilant 25 mcg inhalat.powder (Trelegy Ellipta) pravastatin 40 mg tablet 40 mg PO DAILY 11/02/23 11/02/23 History sacubitril 97 mg-valsartan 103 mg 1 tab PO BID 11/02/23 11/02/23 History tablet (Entresto) New Prescriptions to Start Prescriptions: Allergies Allergy/AdvReac Type Severity Reaction Status Date / Time No Known Allergies Allergy Verified 06/24/23 10:25 Exam (Inpt) Vital signs and Labs for Last 24 Hours: Temp Pulse Resp BP Pulse Ox O2 Del Method 98.7 F 61 20 107/82 L 95 Room Air 12/27/23 15:05 12/27/23 17:00 12/27/23 15:05 12/27/23 17:00 12/27/23 17:00 12/27/23 17:00 Laboratory Results - last 24 hr 12/27/23 15:15: WBC 14.7 H, RBC 3.72 L, Hgb 12.1 L, Hct 37.0 L, MCV 99.5 H, MCH 32.5 H, MCHC 32.6, RDW 15.5, Plt Count 181, MPV 8.6, Neut % (Auto) 73.0, Lymph % (Auto) 19.9, [place] % (Auto) 5.3, Eos % (Auto) 1.0, Baso % (Auto) 0.9, Neut # (Auto) 10.7 H, Lymph # (Auto) 2.9, [place] # (Auto) 0.8, Eos # (Auto) 0.1, Baso # (Auto) 0.1, PT 13.0 H, INR 1.22 H, Sodium 136, Potassium 3.1 L, Chloride 103, Carbon Dioxide 26, Anion Gap 10.1, BUN 19, Creatinine 0.80, Estimated Creat Clear 61, Estimated GFR 92, Est GFR ( Amer) 111, Glucose 153 H, Lactate 1.1, Calcium 9.0, Magnesium 1.6, Total Bilirubin 0.5, AST 64 H, ALT 89 H, A lkaline Phosphatase 205 H, Total Protein 5.8 L, Albumin 3.3 L, Globulin 2.5, Albumin/Globulin Ratio 1.3, Lipase 39 I & O for Labs for Last 24 Hours: Intake & Output 12/25/23 12/26/23 12/27/23 12/28/23 11:59 11:59 11:59 11:59 Weight 174 lb Constitutional: mild distress Respiratory: Absent respiratory distress Cardiac: Absent Tachycardia GI: Present soft and tenderness Results Labs 12/27/23 15:15 12/27/23 15:15 Labs: Laboratory Results - last 24 hr 12/27/23 15:15: WBC 14.7 H, RBC 3.72 L, Hgb 12.1 L, Hct 37.0 L, MCV 99.5 H, MCH 32.5 H, MCHC 32.6, RDW 15.5, Plt Count 181, MPV 8.6, Neut % (Auto) 73.0, Lymph % (Auto) 19.9, [place] % (Auto) 5.3, Eos % (Auto) 1.0, Baso % (Auto) 0.9, Neut # (Auto) 10.7 H, Lymph # (Auto) 2.9, [place] # (Auto) 0.8, Eos # (Auto) 0.1, Baso # (Auto) 0.1, PT 13.0 H, INR 1.22 H, Sodium 136, Potassium 3.1 L, Chloride 103, Carbon Dioxide 26, Anion Gap 10.1, BUN 19, Creatinine 0.80, Estimated Creat Clear 61, Estimated GFR 92, Est GFR ( Amer) 111, Glucose 153 H, Lactate 1.1, Calcium 9.0, Magnesium 1.6, Total Bilirubin 0.5, AST 64 H, ALT 89 H, A lkaline Phosphatase 205 H, Total Protein 5.8 L, Albumin 3.3 L, Globulin 2.5, Albumin/Globulin Ratio 1.3, Lipase 39 Assessment and Plan *Assessment and plan (1) Small bowel obstruction: Status: Acute Category: Medical Code(s): K56.609 - Unspecified intestinal obstruction, unspecified as to partial versus complete obstruction Plan: 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
--- NOTE | 2023-12-27 18:03 | PC.NURSE ---
Jas Hassan PA-C s/w Dr. Yao for admission. Per Dr. Sood, he will be on a surgeon but not admitting provider.
--- NOTE | 2023-12-27 18:04 | PC.NURSE ---
starla valdez speaking with dr plummer for admission
--- NOTE | 2023-12-27 18:05 | PC.NURSE ---
tobacco warehouse agent notified of admission
--- NOTE | 2023-12-27 18:06 | PC.NURSE ---
gym supervisor notified of admission
[2023-12-27] MEDS: METRONIDAZ/SOD CHL 500 MG/100 ML PIGGYBACK 100 MG IV (18:18)
[2023-12-27] MEDS: CEFAZOLIN SODIUM 1GM ADV 1 GM IV (18:45)
[2023-12-27] MEDS: 0.9 % SODIUM CHLORIDE 100 ML IV (18:45)
--- NOTE | 2023-12-27 19:03 | EXP.ANES.CKL ---
[facility] Disclaimer: The information contained in this section may have been updated after the patient was seen, as this information can be updated by other users. 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) Palpitations Atrial flutter Thoracic ascending aortic aneurysm COPD (chronic obstructive pulmonary disease) Chest pain Atrial fibrillation Chronic systolic heart failure Dyspnea HLD (hyperlipidemia) HTN (hypertension) Surgical History Biventricular ICD (implantable cardioverter-defibrillator) in place Automatic implantable cardioverter-defibrillator in situ Family History Other Family history of stroke Social History Smoking Status: Former smoker how long ago did patient quit smokin years ago alcohol intake: never substance use type: denies use current occupational status: retired Travel in the last 8 weeks: None household members: none housing: house caffeine: Yes (coffee) [facility] Anesthesia Checklist Patient Identification Patient Identification: Verbal (Name & ) Structural Data Admitted From: Emergency Dept Planned Operative Procedure/s: ex lap NPO Status Verified Time NPO: 00:00 Airway Assessment Mallampati Score:: Class II C-Spine Mobility Assessed: Yes TMJ Mobility Assessed: Yes Dentition: Edentulous Neurological Assessment Level of Consciousness: Awake, Alert and Appropriate Anesthesia Plan Anesthesia Risk discussed: Yes Anesthesia Plan: Verified ASA Class: III Anesthesia Type: General
--- NOTE | 2023-12-27 19:10 | EXP.ANES.CKL ---
[facility] Disclaimer: The information contained in this section may have been updated after the patient was seen, as this information can be updated by other users. 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) Palpitations Atrial flutter Thoracic ascending aortic aneurysm COPD (chronic obstructive pulmonary disease) Chest pain Atrial fibrillation Chronic systolic heart failure Dyspnea HLD (hyperlipidemia) HTN (hypertension) Surgical History Biventricular ICD (implantable cardioverter-defibrillator) in place Automatic implantable cardioverter-defibrillator in situ Family History Other Family history of stroke Social History Smoking Status: Former smoker how long ago did patient quit smokin years ago alcohol intake: never substance use type: denies use current occupational status: retired Travel in the last 8 weeks: None household members: none housing: house caffeine: Yes (coffee) [facility] Anesthesia Checklist Patient Identification Patient Identification: Verbal (Name & ) Structural Data Admitted From: Emergency Dept Planned Operative Procedure/s: ex lap NPO Status Verified Time NPO: 00:00 Airway Assessment Mallampati Score:: Class II C-Spine Mobility Assessed: Yes TMJ Mobility Assessed: Yes Dentition: Edentulous Neurological Assessment Level of Consciousness: Awake, Alert and Appropriate Anesthesia Plan Anesthesia Risk discussed: Yes Anesthesia Plan: Verified ASA Class: III Anesthesia Type: General
--- NOTE | 2023-12-27 19:24 | P.PNANES_ITS ---
[facility] Disclaimer: The information contained in this section may have been updated after the patient was seen, as this information can be updated by other users. 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) Palpitations Atrial flutter Thoracic ascending aortic aneurysm COPD (chronic obstructive pulmonary disease) Chest pain Atrial fibrillation Chronic systolic heart failure Dyspnea HLD (hyperlipidemia) HTN (hypertension) Surgical History Biventricular ICD (implantable cardioverter-defibrillator) in place Automatic implantable cardioverter-defibrillator in situ Family History Other Family history of stroke Social History Smoking Status: Former smoker how long ago did patient quit smokin years ago alcohol intake: never substance use type: denies use current occupational status: retired Travel in the last 8 weeks: None household members: none housing: house caffeine: Yes (coffee) [facility] Anesthesia Checklist Patient Identification Patient Identification: Verbal (Name & ) Structural Data Admitted From: Emergency Dept Planned Operative Procedure/s: ex lap NPO Status Verified Time NPO: 00:00 Airway Assessment Mallampati Score:: Class II C-Spine Mobility Assessed: Yes TMJ Mobility Assessed: Yes Dentition: Edentulous Neurological Assessment Level of Consciousness: Awake, Alert and Appropriate Anesthesia Plan Anesthesia Risk discussed: Yes Anesthesia Plan: Verified ASA Class: III Anesthesia Type: General
--- NOTE | 2023-12-27 19:47 | P.OP_ITS ---
Date of procedure: 12/27/23 Pre-op Diagnosis:: Small bowel obstruction Post-op Diagnosis:: Same Procedure performed:: Exploratory laparotomy with lysis of adhesions Surgeon:: Parag Sood MD DIRECTOR CORPORATE COMMUNICATIONS:: Bill Foote Anesthesia: GETA Estimated blood loss (mL): 25 Operative findings:: Obstruction secondary to focal volvulus secondary to adhesions (3 separate focal adhesions... jejunal to jejunal and jejunal to lateral abdominal wall) Decompressed small bowel distal to adhesions/volvulus All bowel viable Operative note:: After informed consent was obtained the patient was taken to the operating room and placed in the supine position. General anesthesia was induced and his abdomen was prepped and draped in a sterile fashion. A midline laparotomy incision was made just above and below the umbilicus. Distended proximal small bowel was immediately noted. As the small bowel was elevated, 3 separate focal adhesions were noted. The adhesions were creating focal volvulus/obstruction. The adhesions were jejunal to jejunal and jejunal to lateral abdominal wall. These focal adhesions were taken down with a combination of Metzenbaum scissors and electrocautery. No obvious through and through injury to the small bowel was noted. Tiny serosal rents that were noted at the site of adhesion takedown were imbricated with 3-0 Nurolon. The small bowel was then evaluated from the ligament of Treitz to the terminal ileum. No additional adhesions were noted. All bowel was viable. A large volume of fluid within the proximal small bowel was carefully milked back into the stomach and it was evacuated with na sogastric decompression. No sign of active injury to the small bowel or colon was noted. No evidence of active bleeding was noted. The small bowel was returned to the abdominal cavity. Fascia was then reapproximated with #2 Novafil. Skin was stapled and dressings were applied. The patient was transferred to recovery in stable condition after extubation Condition: stable Disposition: PACU Specimens:: None Complications:: No immediate
--- NOTE | 2023-12-27 19:59 | EXP.ANES.CKL ---
[facility] Disclaimer: The information contained in this section may have been updated after the patient was seen, as this information can be updated by other users. 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) Palpitations Atrial flutter Thoracic ascending aortic aneurysm COPD (chronic obstructive pulmonary disease) Chest pain Atrial fibrillation Chronic systolic heart failure Dyspnea HLD (hyperlipidemia) HTN (hypertension) Surgical History Biventricular ICD (implantable cardioverter-defibrillator) in place Automatic implantable cardioverter-defibrillator in situ Family History Other Family history of stroke Social History Smoking Status: Former smoker how long ago did patient quit smokin years ago alcohol intake: never substance use type: denies use current occupational status: retired Travel in the last 8 weeks: None household members: none housing: house caffeine: Yes (coffee) [facility] Anesthesia Checklist Patient Identification Patient Identification: Verbal (Name & ) Structural Data Admitted From: Emergency Dept Planned Operative Procedure/s: ex lap NPO Status Verified Time NPO: 00:00 Airway Assessment Mallampati Score:: Class II C-Spine Mobility Assessed: Yes TMJ Mobility Assessed: Yes Dentition: Edentulous Neurological Assessment Level of Consciousness: Awake, Alert and Appropriate Anesthesia Plan Anesthesia Risk discussed: Yes Anesthesia Plan: Verified ASA Class: III Anesthesia Type: General
--- NOTE | 2023-12-27 20:00 | EXP.ANES.I ---
[facility] Anesthesia Record Part I Anesthesia Record I Intake, IV Amount: 500 Hydration: Adequate Estimated blood loss (mL): 100 Urine output (mL): 120 Blood Pressure: 135/71 SaO2: 96 Pulse Rate: 73 Airway Patency: Patent Respiratory Rate: 16 Temperature: 97.5 F Patient is:: Drowsy and Stable Stable to PACU at:: 19:50
[2023-12-27] MEDS: MORPHINE 2MG/ML SYRINGE 2 MG IV (20:14)
[2023-12-27 20:35] LABS: Microscopic, Urine URINE MICROSCOPIC (MICROSCOPIC)
[2023-12-27 20:43] LABS: Appearance,Urine CLEAR (Clear); Bilirubin,Urine Negative (Negative); Blood, Urine TRACE-I (Negative); Color,Urine YELLOW (Yellow); Glucose,Urine (UA) 3+ (Negative); Ketones,Urine Negative (Negative); Leukocyte Esterase,Urine Negative (Negative); Nitrate,Urine Negative (Negative); PH,Urine 6.5 (5.0-8.5); Protein,Urine Negative (Negative); Urobilinogen,Urine 0.2 EU/dl (0.2)
[2023-12-27 21:04] LABS: Bacteria,Urine Trace /lpf; Squamous Epithelial Cell,Urine Occasional #/hpf (0-5)
--- NOTE | 2023-12-27 21:17 | EXP.HP ---
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 Patient seen and evaluated after exploratory laparotomy for SBO. Currently obtunded under effect of sedation. History obatained by chart review and ED documentation. Patient had acute onset of periumbilical abdominal pain with associated bilious nausea and vomiting. He denies diarrhea. He denies recent bowel movement but reports that he has passed gas. Denied chest pain shortness of breath fever chills hemoptysis hematochezia melena hematemesis hematuria. A CT scan revealed evidence of distended small bowel loops and mesenteric volvulus. patient underwent OR for surgical intervention. Admitted for further management [facility] Disclaimer: The information contained in this section may have been updated after the patient was seen, as this information can be updated by other users. 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) Palpitations Atrial flutter Thoracic ascending aortic aneurysm COPD (chronic obstructive pulmonary disease) Chest pain Atrial fibrillation Chronic systolic heart failure Dyspnea HLD (hyperlipidemia) HTN (hypertension) Surgical History Biventricular ICD (implantable cardioverter-defibrillator) in place Automatic implantable cardioverter-defibrillator in situ Family History Other Family history of stroke Social History (Updated 12/27/23 @ 21:15 by Madelyn Richards RN) Smoking Status: Former smoker how long ago did patient quit smokin years ago alcohol intake: never substance use type: denies use current occupational status: retired Travel in the last 8 weeks: None household members: none housing: house caffeine: Yes (coffee) Review of Systems Review of Systems Review of systems:: unable to obtain Meds Home Medications and Allergies Home Medications Medication Instructions Recorded Confirmed Type levothyroxine 100 mcg tablet 100 mcg PO DAILY #90 tabs 12/22/18 12/27/23 History tamsulosin 0.4 mg capsule 0.4 mg PO HS 01/15/23 12/27/23 History apixaban 5 mg tablet (Eliquis) 5 mg PO BID 01/20/23 12/27/23 History bisoprolol fumarate 10 mg tablet 10 mg PO DAILY #90 tabs 02/23/23 12/27/23 Rx allopurinol 100 mg tablet 100 mg PO DAILY 03/09/23 12/27/23 History methocarbamol 500 mg tablet 500 mg PO Q12HP PRN muscle spasm 07/06/23 12/27/23 Rx #20 tabs lidocaine 5 % topical patch 1 patch topical DAILY #30 ea 10/29/23 12/27/23 Rx dexamethasone 6 mg tablet 6 mg PO DAILY #5 tabs 10/30/23 12/27/23 Rx fluticasone fur. 100 mcg-umeclid 2 inh inhalation DAILY 11/02/23 12/27/23 History 62.5 mcg-vilant 25 mcg inhalat.powder (Trelegy Ellipta) pravastatin 40 mg tablet 40 mg PO DAILY 11/02/23 12/27/23 History sacubitril 97 mg-valsartan 103 mg 1 tab PO BID 11/02/23 12/27/23 History tablet (Entresto) New Prescriptions to Start Prescriptions: Allergies Allergy/AdvReac Type Severity Reaction Status Date / Time No Known Allergies Allergy Verified 06/24/23 10:25 Exam Data for Last 24 hours Vital signs and Labs for Last 24 Hours: Temp Pulse Resp BP Pulse Ox O2 Del Method 97.5 F L 72 17 128/83 95 Room Air 12/27/23 20:01 12/27/23 20:20 12/27/23 20:20 12/27/23 20:20 12/27/23 20:20 12/27/23 20:20 Laboratory Results - last 24 hr 12/27/23 15:15: WBC 14.7 H, RBC 3.72 L, Hgb 12.1 L, Hct 37.0 L, MCV 99.5 H, MCH 32.5 H, MCHC 32.6, RDW 15.5, Plt Count 181, MPV 8.6, Neut % (Auto) 73.0, Lymph % (Auto) 19.9, [place] % (Auto) 5.3, Eos % (Auto) 1.0, Baso % (Auto) 0.9, Neut # (Auto) 10.7 H, Lymph # (Auto) 2.9, [place] # (Auto) 0.8, Eos # (Auto) 0.1, Baso # (Auto) 0.1, PT 13.0 H, INR 1.22 H, Sodium 136, Potassium 3.1 L, Chloride 103, Carbon Dioxide 26, Anion Gap 10.1, BUN 19, Creatinine 0.80, Estimated Creat Clear 61, Estimated GFR 92, Est GFR ( Amer) 111, Glucose 153 H, Lactate 1.1, Calcium 9.0, Magnesium 1.6, Total Bilirubin 0.5, AST 64 H, ALT 89 H, Alkaline Phosphatase 205 H, Total Protein 5.8 L, Albumin 3.3 L, Globulin 2.5, Albumin/Globulin Ratio 1.3, Lipase 39 12/27/23 18:20: Urine Color Yellow, Urine Appearance Clear, Urine pH 6.5, Ur Specific [place] 1.010, Urine Protein Negative, Urine Glucose (UA) 3+, Urine Ketones Negative, Urine Blood Trace-i, Urine Nitrate Negative, Urine Bilirubin Negative, Urine Urobilinogen 0.2, Ur Leukocyte Esterase Negative, Urine RBC 5-10, Urine WBC 3-5, Ur Squamous Epith Cells Occasional, Urine Bacteria Trace Temp Pulse Resp BP Pulse Ox 98.2 F 103 H 21 116/74 96 01/15/23 10:38 01/15/23 10:40 01/15/23 10:40 01/15/23 10:40 01/15/23 10:40 Laboratory Results - last 24 hr 01/15/23 08:34: WBC 21.9 H*, RBC 4.59 L, Hgb 14.5, Hct 44.9, MCV 97.8 H, MCH 31.5 H, MCHC 32.2, RDW 13.7, Plt Count 226, MPV 8.8, Neut % (Auto) 84.1 H, Lymph % (Auto) 11.1, [place] % (Auto) 4.3, Eos % (Auto) 0.2, Baso % (Auto) 0.2, Neut # (Auto) 18.4 H, Lymph # (Auto) 2.4, [place] # (Auto) 1.0, Eos # (Auto) 0.0, Baso # (Auto) 0.1, Total Counted 100, Neutrophils % (Manual) 84 H, Lymphocytes % (Manual) 12, Monocytes % (Manual) 4, Platelet Estimate Normal, RBC Morphology Normal, Sodium 138, Potassium 3.4 L, Chloride 104, Carbon Dioxide 21 L, Anion Gap 16.4 H, BUN 23 H, Creatinine 1.20, Estimated GFR 58 L, Est GFR ( Amer) 70, Glucose 163 H, Lactate 2.7 H, Calcium 8.8, Total Bilirubin 1.5 H, AST 35, ALT 32, Alkaline Phosphatase 148 H, Total Protein 6.6, Albumin 4.1, Globulin 2.5, Albumin/Globulin Ratio 1.6, Procalcitonin 0.157 01/15/23 08:38: Troponin I < 0.01 01/15/23 08:43: Specimen Source Right brachial, O2 % 3 lpm, ABG pH 7.41, ABG pCO2 29.7 L, ABG pO2 87.6, ABG HCO3 18.4 L, ABG Total CO2 19.3 L, ABG O2 Saturation 97, ABG Base Excess -6.2 L, Steven Test N/a 01/15/23 09:02: SARS-CoV-2 (PCR) Not detected, Influenza A Untype (PCR) Not detected, Influenza Type B (PCR) Not detected I & O for Last 24 hours: Intake & Output 12/24/23 12/25/23 12/26/23 12/27/23 23:59 23:59 23:59 23:59 Intake Total 500 / 500 Balance 500 / 500 Weight 78.925 kg Intake & Output 01/12/23 01/13/23 01/14/23 01/15/23 23:59 23:59 23:59 23:59 Intake Total 924.69 / 924.69 Balance 924.69 / 924.69 Weight 98.883 kg Constitutional Constitutional: no acute distress, chronically ill appearing, somnolent and obtunded *Routine HEENT Exam Head: Present normocephalic Eye: Present EOMI ENT: Present mucous membranes moist *Routine Neck Exam Neck: Present full ROM *Routine Respiratory Exam Respiratory: Present accessory muscle use, prolonged expiratory phase and crackles; Absent rhonchi or wheezes *Routine Cardiovascular Exam Cardiovascular: Present tachycardia and irregularly irregular *Routine Abdominal Exam Abdominal: Present soft, tenderness, distended, guarding and wound; Absent normoactive bowel sounds *Routine Rectal Exam Rectal:: deferred *Routine Genitalia Exam Genitalia:: deferred *Routine Extremities Exam Extremities: Absent cyanosis, clubbing or edema Comments: Numerous tattoos *Routine Skin Exam Skin: Present intact, dry and wounds; Absent erythema Comments: Numerous tattoos on forearms and hands. *Routine Neurological Exam Neurological: Present altered mental status; Absent alert Routine Psychiatric Exam Psychiatric: Present unable to assess H&P: Result Imaging and Cardiology EKG: Status: image reviewed by me, Preliminary report and final report CT scan - abdomen: Status: image reviewed by me, Preliminary report and final report Assessment and Plan *Assessment and plan (1) Small bowel obstruction: Status: Acute Category: Medical Code(s): K56.609 - Unspecified intestinal obstruction, unspecified as to partial versus complete obstruction (2) Abdominal pain: Status: Acute Qualifiers: Abdominal location: unspecified location Qualified Code(s): R10.9 - Unspecified abdominal pain Category: Medical Code(s): R10.9 - Unspecified abdominal pain (3) Status post laparotomy with lysis of adhesions: Status: Acute Category: Surgical Code(s): Z98.890 - Other specified postprocedural states (4) Acute osteomyelitis of lumbar spine: Status: Acute Category: Medical Code(s): M46.26 - Osteomyelitis of vertebra, lumbar region (5) Hypertension: Status: Acute Qualifiers: Hypertension type: unspecified Qualified Code(s): I10 - Essential (primary) hypertension Category: Medical Code(s): I10 - Essential (primary) hypertension (6) Hyperlipidemia: Status: Acute Qualifiers: Hyperlipidemia type: unspecified Qualified Code(s): E78.5 - Hyperlipidemia, unspecified Category: Medical Code(s): E78.5 - Hyperlipidemia, unspecified (7) Hypothyroidism: Status: Chronic Qualifiers: Hypothyroidism type: acquired Qualified Code(s): E03.9 - Hypothyroidism, unspecified Category: Medical Code(s): E03.9 - Hypothyroidism, unspecified (8) COPD (chronic obstructive pulmonary disease): Status: Acute Qualifiers: COPD type: unspecified COPD Qualified Code(s): J44.9 - Chronic obstructive pulmonary disease, unspecified Category: Medical Code(s): J44.9 - Chronic obstructive pulmonary disease, unspecified (9) Biventricular ICD (implantable cardioverter-defibrillator) in place: Status: Acute Category: Surgical Code(s): Z95.810 - Presence of automatic (implantable) cardiac defibrillator Plan 83-year-old male with a 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 Findings discussed with ED. A CT scan revealed evidence of distended small bowel loops and mesenteric volvulus. patient underwent OR for surgical intervention. Agreed for admission: -Acute abdominal pain likely secondary to SBO SBO s/p laparotomy with lysis of adhesions Admit patient for medical services. Dispo MedSurg Started on Zosyn Q8 Surgical team on board. Day #0 post op Pain management morphine thru REVENUE ENFORCEMENT AGENT pump Keep n.p.o.. Zofran for nausea as needed NG tube in place Acute OM discitis on Vancomycin -Other chronic conditions: Hypertension hyperlipidemia hypothyroidism and COPD:\ Condition reviewed and seems to be stable at this point Resume home regimen patient on Synthroid 100 mcg Entresto, bisoprolol Optimize O2 saturation. 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 On Protonix for GI bleed protection Full code
[2023-12-27] MEDS: MORPHINE 10MG/ML 30ML PCA IV (21:31)
[2023-12-27] MEDS: PIPERCILLIN/TAZO 3.375 GM in 0.9 % SODIUM CHLORIDE 50 ML IV (21:32)
[2023-12-28] VITALS (12 sets, daily range): BP systolic 117–141; BP diastolic 68–93; PULSE 60–116; RESP 14–22; TEMP 36.5–37.4; O2SAT 93–97; BMI 27.1
--- NOTE | 2023-12-28 04:03 | PC.NURSE ---
Reginald Sr halfway called to check status on patient
[2023-12-28] MEDS: PIPERCILLIN/TAZO 3.375 GM in 0.9 % SODIUM CHLORIDE 50 ML IV ×2 (04:30→12:34)
--- NOTE | 2023-12-28 06:22 | PC.NURSE ---
Patient has had a great night. Patient got a bed bath and walked some in the halls. Patient has been using oral pain medication and has decreased significantly on the ASSEMBLY LINE BRAZER pump. Patient is nauseas on and off but she does tolerate it. no other concerns
--- NOTE | 2023-12-28 06:25 | PC.NURSE ---
Patient has had a great night since coming up from surgery. He states he feels much better than he did yesterday. Patient has used the PRECISION HONER pump some for pain control. Patient has remained with a mulligan and an NG to the left nare
[2023-12-28 06:27] LABS: Chloride 103 mmol/L (98-107)
[2023-12-28 06:28] LABS: Potassium 3.3 mmoL/L (3.5-5.1); Sodium 137 mmol/L (136-145)
[2023-12-28 06:31] LABS: Anion Gap 9.3 mEq/L (5-15); Blood Urea Nitrogen 16 mg/dl (9-20); Calcium 8.7 mg/dl (8.4-10.2); Carbon Dioxide 28 mmol/L (22.0-30.0); Creatinine Clearance Estimated 67 mL/min (50-200); Estimated Glomerular Filt Rate 92 ml/min (>60); GFR (African American) 111 ML/MIN (>60); Glucose 132 mg/dl (74-100)
[2023-12-28 06:33] LABS: Basophils % 0.1 % (0.1-2.0); Hematocrit 36.6 % (42.0-52.0); Hemoglobin 11.7 g/dL (14.1-18.0); Lymphocytes # 1.7 K/mm3 (0.7-4.5); Lymphocytes % 11.4 % (10-50); Mean Corpuscular HGB Conc 31.9 g/dL (31.8-35.4); Mean Corpuscular Hemoglobin 32.5 pg (27.0-31.2); Mean Corpuscular Volume 101.8 fl (80-94); Monocytes # 0.4 K/mm3 (0.1-1.0); Monocytes % 2.5 % (1.7-9.3); Neutrophils # 12.7 K/mm3 (1.8-7.8); Platelet Count 168 K/mm3 (142-424); Red Blood Count 3.59 M/mm3 (4.60-6.20); Red Cell Distribution Width 15.4 % (11.5-17.5); White Blood Count 14.8 K/mm3 (4.8-10.8)
--- NOTE | 2023-12-28 06:36 | PC.NURSE ---
11mg of morphine cleared from X RAY SERVICE TECHNICIAN pump this shift
[2023-12-28 06:38] LABS: MANUAL DIFFERENTIAL MANUAL DIFFERENTIAL (MANUAL DIFF)
[2023-12-28 07:03] LABS: Lymphocytes % 15 % (10-50); Monocytes % 1 % (2-9); Neutrophils % 84 % (42-76); Platelet Estimate Normal; RBC Morphology Normal; Total Cells Counted 100
--- NOTE | 2023-12-28 08:02 | HMH.PHAINT1 ---
Pharmacy Intervention Comments: MEDICATION RECONCILIATION COMPLETED ON PATIENT USING EXTERNAL FILL HISTORY FROM PHARMACY. -BETTY CAMPOVERDE, AZALIAD
--- NOTE | 2023-12-28 08:07 | EXP.SURG.PN ---
Subjective Patient reports: no new complaints Exam Data for Last 24 hours Vital signs and Labs for Last 24 Hours: Temp Pulse Resp BP Pulse Ox O2 Del Method 98.4 F 87 15 122/72 94 L Room Air 12/28/23 04:00 12/28/23 04:00 12/28/23 04:00 12/28/23 04:00 12/28/23 04:00 12/28/23 06:49 Laboratory Results - last 24 hr 12/27/23 15:15: WBC 14.7 H, RBC 3.72 L, Hgb 12.1 L, Hct 37.0 L, MCV 99.5 H, MCH 32.5 H, MCHC 32.6, RDW 15.5, Plt Count 181, MPV 8.6, Neut % (Auto) 73.0, Lymph % (Auto) 19.9, [place] % (Auto) 5.3, Eos % (Auto) 1.0, Baso % (Auto) 0.9, Neut # (Auto) 10.7 H, Lymph # (Auto) 2.9, [place] # (Auto) 0.8, Eos # (Auto) 0.1, Baso # (Auto) 0.1, PT 13.0 H, INR 1.22 H, Sodium 136, Potassium 3.1 L, Chloride 103, Carbon Dioxide 26, Anion Gap 10.1, BUN 19, Creatinine 0.80, Estimated Creat Clear 61, Estimated GFR 92, Est GFR ( Amer) 111, Glucose 153 H, Lactate 1.1, Calcium 9.0, Magnesium 1.6, Total Bilirubin 0.5, AST 64 H, ALT 89 H, Alkaline Phosphatase 205 H, Total Protein 5.8 L, Albumin 3.3 L, Globulin 2.5, Albumin/Globulin Ratio 1.3, Lipase 39 12/27/23 18:20: Urine Color Yellow, Urine Appearance Clear, Urine pH 6.5, Ur Specific [place] 1.010, Urine Protein Negative, Urine Glucose (UA) 3+, Urine Ketones Negative, Urine Blood Trace-i, Urine Nitrate Negative, Urine Bilirubin Negative, Urine Urobilinogen 0.2, Ur Leukocyte Esterase Negative, Urine RBC 5-10, Urine WBC 3-5, Ur Squamous Epith Cells Occasional, Urine Bacteria Trace 12/28/23 05:23: WBC 14.8 H, RBC 3.59 L, Hgb 11.7 L, Hct 36.6 L, MCV 101.8 H, MCH 32.5 H, MCHC 31.9, RDW 15.4, Plt Count 168, MPV 9.0, Neut % (Auto) 86.0 H, Lymph % (Auto) 11.4, [place] % (Auto) 2.5, Eos % (Auto) 0.0 L, Baso % (Auto) 0.1, Neut # (Auto) 12.7 H, Lymph # (Auto) 1.7, [place] # (Auto) 0.4, Eos # (Auto) 0.0, Baso # (Auto) 0.0, Total Counted 100, Neutrophils % (Manual) 84 H, Lymphocytes % (Manual) 15, Monocytes % (Manual) 1 L, Platelet Estimate Normal, RBC Morphology Normal, Sodium 137, Potassium 3.3 L, Chloride 103, Carbon Dioxide 28, Anion Gap 9.3, BUN 16, Creatinine 0.80, Estimated Creat Clear 67, Estimated GFR 92, Est GFR ( Amer) 111, Glucose 132 H, Calcium 8.7 I & O for Last 24 hours: Intake & Output 12/25/23 12/26/23 12/27/23 12/28/23 11:59 11:59 11:59 11:59 Intake Total 650 / 650 Output Total 1575 / 1575 Balance -925 / -925 Weight 190 lb Constitutional Constitutional: no acute distress *Routine Respiratory Exam Respiratory: Absent respiratory distress *Routine Cardiovascular Exam Cardiovascular: Absent tachycardia *Routine Abdominal Exam Comments: Dressing intact. No cellulitis. Progress Note: A&P Assessment and plan (1) Status post laparotomy with lysis of adhesions: Status: Acute Assessment and plan: Stable postoperative day 1 Remove Estevez catheter Increase ambulation PT consult (2) Small bowel obstruction: Status: Acute (3) Abdominal pain: Status: Acute
[2023-12-28] MEDS: ENOXAPARIN 40MG/0.4ML SYRINGE 40 MG SQ (08:40)
--- NOTE | 2023-12-28 09:37 | HMH.PTEV ---
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 Patient seen and evaluated after exploratory laparotomy for SBO . Currently obtunded under effect of sedation. History obatained by chart review and ED documentation. Patient had acute onset of periumbilical abdominal pain with associated bilious nausea and vomiting. He denies diarrhea. He denies recent bowel movement but reports that he has passed gas. Denied chest pain shortness of breath fever chills hemoptysis hematochezia melena hematemesis hematuria. A CT scan revealed evidence of distended small bowel loops and mesenteric volvulus. patient underwent OR for surgical intervention. Admitted for further management Subjective Subjective PLOF: Pt usually lives in a mobile home with 2 RAEGAN and was IND with functional mobility without use of an AD. Pt reports he came from a rehab facility. New diagnosis of cancer in past 12 No months? Rehab PT IP Eval Objective Appearance Patient Behavior Appropriate,Cooperative Patient Orientation Person,Situation Difficulty following instructions none Speech Pattern Clear Ambulation Patient Able to Ambulate No Balance Ability to Arise Able, uses arms to help Sitting Balance Steady, safe Transfers Bed Transfer Ability Minimal x 1 (25% assist) Rehab PT IP prob,goals,plan Problems Date of Evaluation: 12/28/23 PT IP Problems Bed Mobility,Transfers,Gait, Balance,Safety Rehab Potential Rehab Potential Good Equipment Needs Assistive Devices Rolling / Wheeled Walker Plan PT Intervention Plan Bed Mobility,Transfers,Gait, Balance,Safety,Therapeutic Exercise Other Intervention Plan 1-2 times PT Plan Frequency Daily Duration LOS Discharge Goals Bed Transfer Ability Supervision/Stand by Sit to Stand Chair Transfer Ability Moderate x 1 (50% assist) Discharge Plan PT Discharge Plan Initial physical therapy evaluation performed. Patient presents below baseline at this time in functional mobility, transfers, and strength. Pt's primary limitation at this time is pain at surgical site upon mobility. Pt not safe to return home at this time d/t current level of functional mobility. PT recommending short-term rehabilitation stay upon d/c from [facility]. Pt would benefit from skilled PT while at [facility] to prevent further functional decline and maximize safety with mobility. Eval Complexity Eval Charge Codes 83101 - Moderate Complexity PHYSICIAN CERTIFICATION: I certify the specified therapy services for Isac Hudson are required, authorized, and reviewed every 30 days.
--- NOTE | 2023-12-28 10:06 | HMH.OTEV ---
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 Patient seen and evaluated after exploratory laparotomy for SBO . Currently obtunded under effect of sedation. History obatained by chart review and ED documentation. Patient had acute onset of periumbilical abdominal pain with associated bilious nausea and vomiting. He denies diarrhea. He denies recent bowel movement but reports that he has passed gas. Denied chest pain shortness of breath fever chills hemoptysis hematochezia melena hematemesis hematuria. A CT scan revealed evidence of distended small bowel loops and mesenteric volvulus. patient underwent OR for surgical intervention. Admitted for further management on 12/27/23 to this facility. PLOF: Pt reports prior to condition they were living alone in trailer that has 2 steps to enter the home. Pt reports they were independent in ADLs and IADLs with cooking consisting of microwave foods. Pt reports they were also driving. Subjective I'll try it again. Pt was supine in bed when therapy arrived. Pt was agreeable to participate in OT eval this morning. Pt was oriented x3. Pt was agreeable to sit on EOB. Pt went from supine to EOB with Min Assist. Pt was able to sit on EOB with CGA for ~3 minutes. Pt demonstrated fair activity tolerance and static sitting balance with CGA. Pt reported pain in abdominal area was main limitation when completing eval. Pt then went from EOB to supine with Min Assist. Pt was left supine in bed with call light and all other needs within reach. Objective Patient Orientation Person,Place,Birthday Bed Mobility bed mobility-scooting,bed mobility - supine/sit,bed mobility - rolling Assist Level Minimal x 1 (25% assist) Decrease in Endurance Yes Rehab OT IP prob,goals,plan Problems Date of Evaluation: 12/28/23 OT IP Problems Bed Mobility,Transfers,Balance ,Self care,Safety Rehab Potential Rehab Potential Good Equipment Needs Assistive Devices Straight Cane,Standard Walker Plan OT intervention Plan Bed Mobility,Transfers,Balance ,Self care,Safety,Therapeutic Exercise OT Plan Frequency Daily Duration LOS Discharge Goals Bed Mobility Ability Standby Assistance Sit to Stand Chair Transfer Ability Minimal x 1 (25% assist), Minimal x 2 (25% assist) Chair Transfer Ability Minimal x 1 (25% assist), Minimal x 2 (25% assist) Chair Transfer Technique Sit to/from Ambulatory Chair Transfer Assistive Devices Rolling Walker Feeding Ability Assist with Tray Set Up Lower Body Dressing Ability Moderate Assistance Upper Body Dressing Ability Minimal Assistance Bathing Ability Moderate Assistance Performing Toilet Hygiene Ability Minimal Assistance Overall Commode/Toilet Transfer Ability Minimal Assistance Commode/Toilet Transfer Technique Sit to/from Ambulatory Decrease in Endurance No Discharge Plan OT Discharge Plan At this time, it is recommended pt goes to short term rehab to address deficits in occupational performance regarding self-care, activity tolerance, and enduance pending medical status and dr orders. Pt will continue to be seen at this facility to address occupational performance deficits with skilled OT services. Eval Complexity Eval Charge Codes 16509 - Moderate Complexity PHYSICIAN CERTIFICATION: I certify the specified therapy services for Isac Hudson are required, authorized, and reviewed every 30 days.
--- NOTE | 2023-12-28 11:35 | CARE MANAGER ---
Addendum entered by Emily Monzon 01/18/24 14:22: I have arranged [employer] for this patient.ID#[id number] Addendum entered by Emily Monzon 01/18/24 11:24: Patient was denied SNF level of care at [facility]. The plan for this patient is to discharge to [facility] level of care. Patient is agreeable to this plan. [facility] Addendum entered by Emily Monzon 01/18/24 10:31: Yani FREEMAN has stated that insurance has requested a peer to peer for SNF level of care. I have updated Dr Desai and he will complete call this AM. If patient is denied [facility] SNF level of care then Jessica bateman/ [facility] did come onsite and evaluate patient. Jessica stated that she can accept this patient LTC if denied SNF. I have updated MD and patient. Addendum entered by Meaghan Post RN 01/15/24 15:46: Spoke with patient regarding possible need for LTC bed. Auth for SNF has been sent for medical review and may possible be denied. Fax[facility] for [facility]TC to [place], [facility], [facility] and [facility]. [facility] will require a $6400 deposit prior to admission. Addendum entered by Emily Monzon 01/15/24 10:34: Per Yani FREEMAN precert is pending at this time. Addendum entered by Emily Monzon 01/15/24 10:07: I am unable to get [facility] of [facility] for precert. Patient is agreeable to placement at [facility] (family resides in this area). Patient information will be faxed to Jessica bateman/ [facility] this AM. Patient is medically stable for discharge. Addendum entered by Emily Monzon 01/14/24 09:12: I have updated Yani ISRAEL that patient is not medically stable for discharge today per MD. stated that pending no setbacks patient will be ready for discharge tomorrow. Yani is checking to see if precert was started yesterday. Addendum entered by Emily Monzon 01/13/24 11:17: Updated patient information has been faxed to Yani bateman/ [facility]. I have also updated Yani that patient may be medically stable for discharge tomorrow and requested that precert be started today. Addendum entered by [facility] 01/12/24 14:33: Updated patient information has been faxed to Yani bateman/ [facility]. Addendum entered by [facility] 01/11/24 07:54: Updated patient information has been faxed to Yani bateman/ [facility]. Addendum entered by [facility] 01/08/24 12:01: I have updated Yani bateman/ [facility] that patient is not ready for discharge. Addendum entered by [facility] 01/08/24 07:34: Updated patient information faxed to Yani. Addendum entered by [facility] 01/06/24 11:18: I have faxed updated patient information to Yani bateman/ [facility]. Addendum entered by [facility] 01/05/24 10:08: I [facility] will not [facility] today. Addendum entered by [facility] 01/04/24 11:13: I have updated Yani that per MD patient will not discharge today due to abdomen being tender and nausea. I will continue to follow up w/ Yani and MD. Possible discharge tomorrow. Addendum entered by [facility] 01/04/24 09:49: Yani w/ [facility] stated that patient has been approved SNF level of care. Addendum entered by Meaghan Post RN 01/01/24 17:31: [facility] has started auth, [facility] until [facility] is medically ready for discharge. Soha Koehler RN plans to update [employer] tomorrow. [facility] nurse states she will authorize once able to tolerate diet and he has had a BM. Addendum entered by Zina Koehler RN 01/01/24 16:46: Meaghan Post RN sent updated information to Yani at [facility] in hopes to start authorization for patient to return possibly over this weekend. Original Note: Patient currently resides at [facility] SNF level of care. Have sent Yani updated information. MAE Myers
[2023-12-28] MEDS: MORPHINE 10MG/ML 30ML PCA IV (13:06)
--- NOTE | 2023-12-28 14:59 | EXP.PN ---
Subjective *Date: 12/28/23 *Time: 14:59 Interval history: seen at bedside, denied CP, SOB, has abdominal pain at the site of surgery, passed gas yesterday before surgery Exam Data for Last 24 hours Vital signs and Labs for Last 24 Hours: Temp Pulse Resp BP Pulse Ox O2 Del Method 99.3 F 83 22 119/70 94 L Room Air 12/28/23 12:00 12/28/23 12:00 12/28/23 12:00 12/28/23 12:00 12/28/23 12:00 12/28/23 13:00 Laboratory Results - last 24 hr 12/27/23 15:15: WBC 14.7 H, RBC 3.72 L, Hgb 12.1 L, Hct 37.0 L, MCV 99.5 H, MCH 32.5 H, MCHC 32.6, RDW 15.5, Plt Count 181, MPV 8.6, Neut % (Auto) 73.0, Lymph % (Auto) 19.9, [place] % (Auto) 5.3, Eos % (Auto) 1.0, Baso % (Auto) 0.9, Neut # (Auto) 10.7 H, Lymph # (Auto) 2.9, [place] # (Auto) 0.8, Eos # (Auto) 0.1, Baso # (Auto) 0.1, PT 13.0 H, INR 1.22 H, Sodium 136, Potassium 3.1 L, Chloride 103, Carbon Dioxide 26, Anion Gap 10.1, BUN 19, Creatinine 0.80, Estimated Creat Clear 61, Estimated GFR 92, Est GFR ( Amer) 111, Glucose 153 H, Lactate 1.1, Calcium 9.0, Magnesium 1.6, Total Bilirubin 0.5, AST 64 H, ALT 89 H, Alkaline Phosphatase 205 H, Total Protein 5.8 L, Albumin 3.3 L, Globulin 2.5, Albumin/Globulin Ratio 1.3, Lipase 39 12/27/23 18:20: Urine Color Yellow, Urine Appearance Clear, Urine pH 6.5, Ur Specific [place] 1.010, Urine Protein Negative, Urine Glucose (UA) 3+, Urine Ketones Negative, Urine Blood Trace-i, Urine Nitrate Negative, Urine Bilirubin Negative, Urine Urobilinogen 0.2, Ur Leukocyte Esterase Negative, Urine RBC 5-10, Urine WBC 3-5, Ur Squamous Epith Cells Occasional, Urine Bacteria Trace 12/28/23 05:23: WBC 14.8 H, RBC 3.59 L, Hgb 11.7 L, Hct 36.6 L, MCV 101.8 H, MCH 32.5 H, MCHC 31.9, RDW 15.4, Plt Count 168, MPV 9.0, Neut % (Auto) 86.0 H, Lymph % (Auto) 11.4, [place] % (Auto) 2.5, Eos % (Auto) 0.0 L, Baso % (Auto) 0.1, Neut # (Auto) 12.7 H, Lymph # (Auto) 1.7, [place] # (Auto) 0.4, Eos # (Auto) 0.0, Baso # (Auto) 0.0, Total Counted 100, Neutrophils % (Manual) 84 H, Lymphocytes % (Manual) 15, Monocytes % (Manual) 1 L, Platelet Estimate Normal, RBC Morphology Normal, Sodium 137, Potassium 3.3 L, Chloride 103, Carbon Dioxide 28, Anion Gap 9.3, BUN 16, Creatinine 0.80, Estimated Creat Clear 67, Estimated GFR 92, Est GFR ( Amer) 111, Glucose 132 H, Calcium 8.7 I & O for Last 24 hours: Intake & Output 12/25/23 12/26/23 12/27/23 12/28/23 23:59 23:59 23:59 23:59 Intake Total 500 / 550 150 / 150 Output Total 0 / 0 1725 / 1725 Balance 500 / 550 -1575 / -1575 Weight 81.76 kg 86.183 kg Constitutional Constitutional: no acute distress *Routine HEENT Exam Head: Present normocephalic Eye: Present EOMI and PERRL ENT: Present mucous membranes moist *Routine Neck Exam Neck: Present supple; Absent lymphadenopathy *Routine Respiratory Exam Respiratory: Present CTA bilaterally *Routine Cardiovascular Exam Cardiovascular: Present RRR *Routine Abdominal Exam Abdominal: Present soft, normoactive bowel sounds and tenderness Comments: tender at site of surgery, covered in dressing *Routine Extremities Exam Extremities: Absent cyanosis, clubbing or edema *Routine Skin Exam Skin: Present warm; Absent rash *Routine Neurological Exam Neurological: Present alert and oriented X3 Assessment and Plan *Assessment and plan (1) Small bowel obstruction: Status: Acute Category: Medical Code(s): K56.609 - Unspecified intestinal obstruction, unspecified as to partial versus complete obstruction (2) Abdominal pain: Status: Acute Qualifiers: Abdominal location: unspecified location Qualified Code(s): R10.9 - Unspecified abdominal pain Category: Medical Code(s): R10.9 - Unspecified abdominal pain (3) Status post laparotomy with lysis of adhesions: Status: Acute Category: Surgical Code(s): Z98.890 - Other specified postprocedural states (4) Acute osteomyelitis of lumbar spine: Status: Acute Category: Medical Code(s): M46.26 - Osteomyelitis of vertebra, lumbar region (5) Hypertension: Status: Acute Qualifiers: Hypertension type: unspecified Qualified Code(s): I10 - Essential (primary) hypertension Category: Medical Code(s): I10 - Essential (primary) hypertension (6) Hyperlipidemia: Status: Acute Qualifiers: Hyperlipidemia type: unspecified Qualified Code(s): E78.5 - Hyperlipidemia, unspecified Category: Medical Code(s): E78.5 - Hyperlipidemia, unspecified (7) Hypothyroidism: Status: Chronic Qualifiers: Hypothyroidism type: acquired Qualified Code(s): E03.9 - Hypothyroidism, unspecified Category: Medical Code(s): E03.9 - Hypothyroidism, unspecified (8) COPD (chronic obstructive pulmonary disease): Status: Acute Qualifiers: COPD type: unspecified COPD Qualified Code(s): J44.9 - Chronic obstructive pulmonary disease, unspecified Category: Medical Code(s): J44.9 - Chronic obstructive pulmonary disease, unspecified (9) Biventricular ICD (implantable cardioverter-defibrillator) in place: Status: Acute Category: Surgical Code(s): Z95.810 - Presence of automatic (implantable) cardiac defibrillator Plan 83-year-old male with a 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 Findings discussed with ED. A CT scan revealed evidence of distended small bowel loops and mesenteric volvulus. patient underwent OR for surgical intervention. Agreed for admission: -Acute abdominal pain likely secondary to SBO SBO s/p laparotomy with lysis of adhesions continue Zosyn Q8 Day #1 post op Pain management morphine thru GAS TURB[employer] POWERPLANT MECHANIC pump Keep n.p.o.. advancce diet as tolerated per GS Zofran for nausea as needed NG tube in place Acute OM discitis on Vancomycin, zosyn check ESR, CRP L2-3 disc space level endplate destruction, possibly underlying discitis. -Other chronic conditions: Hypertension hyperlipidemia hypothyroidism and COPD:\ Condition reviewed and seems to be stable at this point Resume home regimen patient on Synthroid 100 mcg Entresto, bisoprolol Optimize O2 saturation. -Biventricular ICD in place: Continue property assessment monitor Monitor for chest pain and arrhythmia on lovenox for DVT ppx. On Protonix for GI bleed protection Full code
--- NOTE | 2023-12-28 15:12 | P.CONPHA_ITS ---
Pharmacy Consult Date: 12/28/23 Time: 15:12 Referring provider: DR. LONG Reason for Consult:: VANCOMYCIN DOSING Allergies Allergy/AdvReac Type Severity Reaction Status Date / Time No Known Allergies Allergy Verified 06/24/23 10:25 Home Medications Medication Instructions Recorded Confirmed Type tamsulosin 0.4 mg capsule 0.4 mg PO HS 01/15/23 12/28/23 History apixaban 5 mg tablet (Eliquis) 5 mg PO BID 01/20/23 12/28/23 History allopurinol 100 mg tablet 100 mg PO DAILY 03/09/23 12/28/23 History fluticasone fur. 100 mcg-umeclid 1 inh inhalation DAILY 11/02/23 12/28/23 Hi story 62.5 mcg-vilant 25 mcg inhalat.powder (Trelegy Ellipta) pravastatin 40 mg tablet 40 mg PO HS 11/02/23 12/28/23 History sacubitril 97 mg-valsartan 103 mg 1 tab PO BID 11/02/23 12/28/23 History tablet (Entresto) carvedilol 12.5 mg tablet 12.5 mg PO BID 12/28/23 12/28/23 History empagliflozin 10 mg tablet 10 mg PO DAILY 12/28/23 12/28/23 History gabapentin 100 mg capsule 100 mg PO BID 12/28/23 12/28/23 History levothyroxine 175 mcg tablet 175 mcg PO DAILY 12/28/23 12/28/23 History oxycodone 15 mg tablet 7.5 mg PO Q6HP PRN Moderate Pain 12/28/23 12/28/23 History (Scale Score 5-6) pantoprazole 40 mg tablet,delayed 40 mg PO DAILY 12/28/23 12/28/23 History release piperacillin-tazobactam 4.5 gram 4.5 g IV Q8H 12/28/23 12/28/23 History intravenous solution spironolactone 25 mg tablet 12.5 mg PO DAILY 12/28/23 12/28/23 History vancomycin 1.25 gram/250 mL in 1.25 g IV Q24H 12/28/23 12/28/23 History dextrose 5 % intravenous solution New Prescriptions to Start Prescriptions: Height: 1.78 m Weight: 86.183 kg Laboratory Results:: Laboratory Results - last 24 hr 12/27/23 15:15: WBC 14.7 H, RBC 3.72 L, Hgb 12.1 L, Hct 37.0 L, MCV 99.5 H, MCH 32.5 H, MCHC 32.6, RDW 15.5, Plt Count 181, MPV 8.6, Neut % (Auto) 73.0, Lymph % (Auto) 19.9, [place] % (Auto) 5.3, Eos % (Auto) 1.0, Baso % (Auto) 0.9, Neut # (Auto) 10.7 H, Lymph # (Auto) 2.9, [place] # (Auto) 0.8, Eos # (Auto) 0.1, Baso # (Auto) 0.1, PT 13.0 H, INR 1.22 H, Sodium 136, Potassium 3.1 L, Chloride 103, Carbon Dioxide 26, Anion Gap 10.1, BUN 19, Creatinine 0.80, Estimated Creat Clear 61, Estimated GFR 92, Est GFR ( Amer) 111, Glucose 153 H, Lactate 1.1, Calcium 9.0, Magnesium 1.6, Total Bilirubin 0.5, AST 64 H, ALT 89 H, Alkaline Phosphatase 205 H, Total Protein 5.8 L, Albumin 3.3 L, Globulin 2.5, Albumin/Globulin Ratio 1.3, Lipase 39 12/27/23 18:20: Urine Color Yellow, Urine Appearance Clear, Urine pH 6.5, Ur Specific [place] 1.010, Urine Protein Negative, Urine Glucose (UA) 3+, Urine Ketones Negative, Urine Blood Trace-i, Urine Nitrate Negative, Urine Bilirubin Negative, Urine Urobilinogen 0.2, Ur Leukocyte Esterase Negative, Urine RBC 5- 10, Urine WBC 3-5, Ur Squamous Epith Cells Occasional, Urine Bacteria Trace 12/28/23 05:23: WBC 14.8 H, RBC 3.59 L, Hgb 11.7 L, Hct 36.6 L, MCV 101.8 H, MCH 32.5 H, MCHC 31.9, RDW 15.4, Plt Count 168, MPV 9.0, Neut % (Auto) 86.0 H, Lymph % (Auto) 11.4, [place] % (Auto) 2.5, Eos % (Auto) 0.0 L, Baso % (Auto) 0.1, Neut # (Auto) 12.7 H, Lymph # (Auto) 1.7, [place] # (Auto) 0.4, Eos # (Auto) 0.0, Baso # (Auto) 0.0, Total Counted 100, Neutrophils % (Manual) 84 H, Lymphocytes % (Manual) 15, Monocytes % (Manual) 1 L, Platelet Estimate Normal, RBC Morphology Normal, Sodium 137, Potassium 3.3 L, Chloride 103, Carbon Dioxide 28, Anion Gap 9.3, BUN 16, Creatinine 0.80, Estimated Creat Clear 67, Estimated GFR 92, Est GFR ( Amer) 111, Glucose 132 H, Calcium 8.7 Medical History: Medical History (Updated 12/27/23 @ 17:25 by LILLI Marquez) Atrial fibrillation AAA (abdominal aortic aneurysm) Sepsis Atrial fibrillation with RVR Chest pain Renal mass H/O medication noncompliance 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) Palpitations Atrial flutter Thoracic ascending aortic aneurysm COPD (chronic obstructive pulmonary disease) Chest pain Atrial fibrillation Chronic systolic heart failure Dyspnea HLD (hyperlipidemia) HTN (hypertension) Assessment and Plan Assessment and plan all Dx Assessment and Plan for all problems:: Pharmacokinetic dosing service Objective: Patient: Floor: Age: 83 yo Serum creatinine: 0.80 mg/dL Height: 70.1 Inches Weight (kg): 86.2 Assessment: IBW (kg): 73.23 Dosing wt(kg): 86.2 Estimated Creatinine clearance (ml/min): 71.2 CRCL method: Cockcroft and Gault using ibw(default). Drug selected: Vancomycin Loading dose (mg): Vd (liters): 69.0 (factor used: 0.8 L/kg) Pastor (hr-1): 0.063 Half life (hrs): 11.00 CLvanco=?? 4.347 L/hr Recommended dose: 1750 mg Interval: 18 hrs Infusion time (hrs): 2.0 Predicted peak (mcg/mL): 35.1 Predicted trough (mcg/mL): 12.81 Total body weight is being used for vancomycin dosing. Recommendations: Give Vancomycin 1750 mg q 18 hrs with an expected Cpeak of 35.1 mcg/ml and an expected Ctrough of 12.81 mcg/ml AUC 0-24 /DEBBIE Data: DEBBIE 0.5 mcg/mL:?? AUC/DEBBIE:? 1073.5 DEBBIE 1.0 mcg/mL:?? AUC/DEBBIE:? 536.8 --------- DEBBIE 1.5 mcg/mL:?? AUC/DEBBIE:? 357.8 DEBBIE 2.0 mcg/mL:?? AUC/DEBBIE:? 268.4 Thank you for the consult, will continue to follow. -BETTY CAMPOVERDE, AZALIAD
[2023-12-28 15:46] LABS: C-Reactive Protein 83.2 mg/L (0-4)
[2023-12-28 15:54] LABS: Erythrocyte Sedimentation Rate 40 mm/hr (0-20)
[2023-12-28] MEDS: VANCOMYCIN/WATER FOR INJ (PEG) 1.75 GM/350 ML PIGGYBACK IV (15:56)
--- NOTE | 2023-12-28 18:09 | PC.NURSE ---
Addendum entered by Tiffanie Geller RN 12/28/23 18:28: 25 MG CLEARED FROM BANDER AND CELLOPHANER MACHINE. 200 ML'S EMPTIED FROM NG CANISTER. Original Note: PT IS SITTING UP IN THE CHAIR. ALERT AND ORIENTED X4. 1 ASSIST TO GET OOB. PT HAS NOT VOIDED SINCE CATHETER WAS DC'D AT 1100. LUNG SOUNDS CLEAR. ABDOMEN SOFT/TENDER WITH HYPOACTIVE BOWEL SOUNDS. DRESSING NOTED TO MIDLINE INCISION. 2+ PITTING EDEMA NOTED TO BLE. PACED ON TELEMETRY. WILL CONTINUE TO MONITOR.
[2023-12-28] MEDS: SODIUM CHLORIDE 0.9% 10ML VIAL 10 ML IV (20:27)
[2023-12-28] MEDS: PANTOPRAZOLE 40MG VIAL 40 MG IV (20:27)
[2023-12-29] VITALS (13 sets, daily range): BP systolic 116–156; BP diastolic 67–91; PULSE 52–108; RESP 16–20; TEMP 36.6–37.2; O2SAT 90–98; BMI 26.2
--- NOTE | 2023-12-29 06:08 | PC.NURSE ---
Addendum entered by Michelle Gonsales RN 12/29/23 07:02: 16mg cleared from pump for shift Original Note: No acute changes during shift. NG remains in place @ 68cm to low wall suction. 20ml of green bile drained during shift. Midline incision dsg intact. Small amount of dry serosang drainage present. Pt using NOVELTY TWISTER TENDER pump accordingly throughout shift, states it relieves his pain well. Pt cooperative with care. Call light within reach.
[2023-12-29 07:01] LABS: Basophils % 0.3 % (0.1-2.0); Eosinophils % 0.4 % (0.1-12.0); Hematocrit 34.4 % (42.0-52.0); Hemoglobin 11.1 g/dL (14.1-18.0); Lymphocytes # 2.5 K/mm3 (0.7-4.5); Lymphocytes % 23.9 % (10-50); Mean Corpuscular HGB Conc 32.3 g/dL (31.8-35.4); Mean Platelet Volume 8.3 fl (7.4-10.4); Monocytes # 0.5 K/mm3 (0.1-1.0); Monocytes % 5.1 % (1.7-9.3); Neutrophils # 7.4 K/mm3 (1.8-7.8); Neutrophils % 70.3 % (37.0-80.0); Platelet Count 156 K/mm3 (142-424); Red Blood Count 3.38 M/mm3 (4.60-6.20); Red Cell Distribution Width 15.4 % (11.5-17.5); White Blood Count 10.6 K/mm3 (4.8-10.8)
[2023-12-29 07:17] LABS: Chloride 105 mmol/L (98-107); Potassium 3.1 mmoL/L (3.5-5.1); Sodium 137 mmol/L (136-145)
[2023-12-29 07:20] LABS: Alanine Aminotransferase 54 U/L (12-78); Albumin Level 2.7 g/dl (3.5-5.0); Albumin/Globulin Ratio 1.1 (1.1-1.8); Alkaline Phosphatase 151 U/L (38-126); Anion Gap 5.1 mEq/L (5-15); Aspartate Amino Transferase 35 U/L (17-59); Bilirubin,Total 0.5 mg/dl (0.2-1.3); Blood Urea Nitrogen 18 mg/dl (9-20); Calcium 8.5 mg/dl (8.4-10.2); Carbon Dioxide 30 mmol/L (22.0-30.0); Creatinine Clearance Estimated 65 mL/min (50-200); Estimated Glomerular Filt Rate 80 ml/min (>60); GFR (African American) 97 ML/MIN (>60); Globulin 2.4 g/dL (1.3-3.2); Glucose 81 mg/dl (74-100); Total Protein,Serum 5.1 g/dl (6.3-8.2)
[2023-12-29] MEDS: MORPHINE 10MG/ML 30ML PCA IV ×2 (07:41→18:28)
--- NOTE | 2023-12-29 07:42 | P.PN_ITS ---
Subjective Patient reports: no new complaints and no flatus Exam Data for Last 24 hours Vital signs and Labs for Last 24 Hours: Temp Pulse Resp BP Pulse Ox O2 Del Method 98.1 F 80 16 146/77 H 96 Room Air 12/29/23 04:00 12/29/23 04:00 12/29/23 04:00 12/29/23 04:00 12/29/23 04:00 12/29/23 07:00 Laboratory Results - last 24 hr 12/28/23 15:22: ESR 40 H, C-Reactive Protein 83.2 H 12/29/23 05:55: WBC 10.6 D, RBC 3.38 L, Hgb 11.1 L, Hct 34.4 L, MCV 102.0 H, MCH 33.0 H, MCHC 32.3, RDW 15.4, Plt Count 156, MPV 8.3, Neut % (Auto) 70.3, Lymph % (Auto) 23.9, [place] % (Auto) 5.1, Eos % (Auto) 0.4, Baso % (Auto) 0.3, Neut # (Auto) 7.4, Lymph # (Auto) 2.5, [place] # (Auto) 0.5, Eos # (Auto) 0.0, Baso # (Auto) 0.0, Sodium 137, Potassium 3.1 L, Chloride 105, Carbon Dioxide 30, Anion Gap 5.1, BUN 18, Creatinine 0.90, Estimated Creat Clear 65, Estimated GFR 80, Est GFR ( Amer) 97, Glucose 81, Calcium 8.5, Total Bilirubin 0.5, AST 35 D, ALT 54 D, Alkaline Phosphatase 151 H, Total Protein 5.1 L, Albumin 2.7 L , Globulin 2.4, Albumin/Globulin Ratio 1.1 I & O for Last 24 hours: Intake & Output 12/26/23 12/27/23 12/28/23 12/29/23 11:59 11:59 11:59 11:59 Intake Total 650 / 650 347 / 347 Output Total 1725 / 1725 545 / 545 Balance -1075 / -1075 -198 / -198 Weight 190 lb 183 lb 3.2 oz Constitutional Constitutional: no acute distress *Routine Respiratory Exam Respiratory: Absent respiratory distress *Routine Cardiovascular Exam Cardiovascular: Absent tachycardia *Routine Abdominal Exam Abdominal: Present soft, tenderness and distended Comments: Incision clean, dry, and intact. No erythema. Progress Note: A&P Assessment and plan (1) Status post laparotomy with lysis of adhesions: Status: Acute Assessment and plan: Stable postoperative day 2 Continue nasogastric decompression for now Await return of bowel function Increase ambulation (continue PT/OT) (2) Small bowel obstruction: Status: Acute
--- NOTE | 2023-12-29 09:24 | PC.NURSE ---
2.9mg morphine cleared from paper cone machine tender pump at 0800.
--- NOTE | 2023-12-29 09:28 | P.PNANES_ITS ---
[facility] Anesthesia Record Part II Anesthesia Record Part II Discharge Time: 20:20 Destination: Medical Surgical Department PACU nurse assessment reviewed?: Yes Patient Condition:: Good Anesthesia Complications:: None Swallowing reflex intact?: Yes Airway Patency: Patent Cyanosis?: No Blood Pressure: 128/83 SaO2: 95 Respiratory Rate: 17 Pulse Rate: 72 Temperature: 98.1 F Mental Status: Alert & Oriented Pain level:: 6 Nausea and/or vomitting:: None Intake, IV Amount: 0 Hydration: Adequate
[2023-12-29] MEDS: ENOXAPARIN 40MG/0.4ML SYRINGE 40 MG SQ (09:36)
[2023-12-29] MEDS: VANCOMYCIN/WATER FOR INJ (PEG) 1.75 GM/350 ML PIGGYBACK IV (09:36)
[2023-12-29 15:59] LABS: Erythrocyte Sedimentation Rate 93 mm/hr (0-20)
--- NOTE | 2023-12-29 17:12 | INFXCTL.NOTE ---
Patient has been cooperative with care this shift. Patient's NG tube was assessed at 68 this morning, however NG fell out when the patient stood urinate around 0800. Dr. Sood notified. advised to monitor patient's abdomen distension to determine if the tube needed replaced. Patient was given chewing gum to help wake up bowels (bowel sounds were absent upon auscultation during morning assessment). Patient verbalized that he thought this was helping, and bowel sounds were later heard in all 4 quadrants. Patient has ambulated the hallway twice during this shift. Incentive spirometer demonstrated and practiced throughout shift. Patient was experiencing abdomen distension and excessive belching, so NG tube was reinserted up to 68. Patient tolerated well. Patient has been using the SODA FOUNTAIN CLERK pump with morphine throughout the shift for pain management. Patient has periods of groaning in pain, but states that the medicine helps with this. Patient has no complaints at this time.
--- NOTE | 2023-12-29 17:21 | P.PN_ITS ---
Subjective *Date: 12/29/23 *Time: 17:56 Interval history: Still distended this morning. Having some belching. No jean-claude emesis. Diffuse abdominal pain. No shortness of breath or chest pain. Has not passed flatus. Medical Exam Vital signs and Labs for Last 24 Hours: Vital Signs Temp Pulse Pulse Resp BP Pulse Ox O2 Del Method 12/29/23 17:00 Room Air 12/29/23 16:00 98.2 F 95 H 19 130/67 93 L Room Air 12/29/23 15:00 Room Air 12/29/23 13:00 Room Air 12/29/23 12:00 80 12/29/23 12:00 98.9 F 103 H 20 116/73 90 L Room Air 12/29/23 11:00 Room Air 12/29/23 09:30 17 12/29/23 09:00 Room Air 12/29/23 08:00 90 12/29/23 08:00 97.9 F 102 H 20 127/73 95 Room Air 12/29/23 08:00 Room Air 12/29/23 07:00 Room Air 12/29/23 05:00 Room Air 12/29/23 04:00 98.1 F 80 16 146/77 H 96 Room Air 12/29/23 04:00 89 12/29/23 03:00 Room Air 12/29/23 01:00 Room Air 12/29/23 00:00 80 12/29/23 00:00 97.9 F 83 18 129/77 95 Room Air 12/28/23 23:00 Room Air 12/28/23 20:44 Room Air 12/28/23 20:00 116 H 12/28/23 20:00 98.8 F 102 H 18 118/84 93 L Room Air 12/28/23 20:00 93 L Room Air 12/28/23 18:30 Room Air 12/28/23 17:53 81 20 141/93 H 93 L Room Air Intake and Output 12/29/23 12/29/23 12/29/23 07:59 15:59 23:59 Intake Total 3 / 3 Output Total 545 / 1295 750 / 1295 Balance -545 / -1292 -747 / -1292 Intake: Intake, Other Amount 3 / 3 Intake, Total IV Amount 0 / 0 Output: Output, Urine Amount 525 / 1275 750 / 1275 Output, Gastric Drainage Amount Left Nare Other: Number of Unmeasured Voids 1 0 Weight 83.098 kg 83 kg Patient Weight 12/29/23 23:59 Weight 83 kg Laboratory Results - last 24 hr 12/29/23 05:55: WBC 10.6 D, RBC 3.38 L, Hgb 11.1 L, Hct 34.4 L, MCV 102.0 H, MCH 33.0 H, MCHC 32.3, RDW 15.4, Plt Count 156, MPV 8.3, Neut % (Auto) 70.3, Lymph % (Auto) 23.9, [place] % (Auto) 5.1, Eos % (Auto) 0.4, Baso % (Auto) 0.3, Neut # (Auto) 7.4, Lymph # (Auto) 2.5, [place] # (Auto) 0.5, Eos # (Auto) 0.0, Baso # (Auto) 0.0, Sodium 137, Potassium 3.1 L, Chloride 105, Carbon Dioxide 30, Anion Gap 5.1, BUN 18, Creatinine 0.90, Estimated Creat Clear 65, Estimated GFR 80, Est GFR ( Amer) 97, Glucose 81, Calcium 8.5, Total Bilirubin 0.5, AST 35 D, ALT 54 D, Alkaline Phosphatase 151 H, Total Protein 5.1 L, Albumin 2.7 L , Globulin 2.4, Albumin/Globulin Ratio 1.1 12/29/23 14:50: ESR 93 H I & O for Labs for Last 24 Hours: Intake & Output 12/26/23 12/27/23 12/28/23 12/29/23 23:59 23:59 23:59 23:59 Intake Total 500 / 550 497 / 497 3 / 3 Output Total 0 / 0 1725 / 1875 1295 / 1295 Balance 500 / 550 -1228 / -1378 -1292 / -1292 Weight 81.76 kg 86.183 kg 83 kg Constitutional: Present no acute distress, average body habitus, chronically ill appearing and cooperative Head: Present atraumatic and normocephalic ENT: Present normal exam Comment:: NG in left nare Respiratory: Present normal respiratory effort; Absent rhonchi, wheezes or crackles Cardiac: Present Reg Rate and Rhythm GI: Present soft, distention, tenderness (Diffuse nonfocal) and diminished bowel sounds; Absent guarding or rebound Rectal (male): Present deferred (male): Present deferred Extremities: Present normal inspection and full ROM Skin: Present intact; Absent erythema Neuro: Present Grossly Intact, alert, awake, oriented x 3 and moves all extremities Assessment and Plan *Assessment and plan (1) Small bowel obstruction: Status: Acute Category: Medical Code(s): K56.609 - Unspecified intestinal obstruction, unspecified as to partial versus complete obstruction (2) Abdominal pain: Status: Acute Qualifiers: Abdominal location: unspecified location Qualified Code(s): R10.9 - Unspecified abdominal pain Category: Medical Code(s): R10.9 - Unspecified abdominal pain (3) Status post laparotomy with lysis of adhesions: Status: Acute Category: Surgical Code(s): Z98.890 - Other specified postprocedural states (4) Acute osteomyelitis of lumbar spine: Status: Acute Category: Medical Code(s): M46.26 - Osteomyelitis of vertebra, lumbar region (5) Hypertension: Status: Acute Qualifiers: Hypertension type: unspecified Qualified Code(s): I10 - Essential (primary) hypertension Category: Medical Code(s): I10 - Essential (primary) hypertension (6) Hyperlipidemia: Status: Acute Qualifiers: Hyperlipidemia type: unspecified Qualified Code(s): E78.5 - Hyperlipidemia, unspecified Category: Medical Code(s): E78.5 - Hyperlipidemia, unspecified (7) Hypothyroidism: Status: Chronic Qualifiers: Hypothyroidism type: acquired Qualified Code(s): E03.9 - Hypothyroidism, unspecified Category: Medical Code(s): E03.9 - Hypothyroidism, unspecified (8) COPD (chronic obstructive pulmonary disease): Status: Acute Qualifiers: COPD type: unspecified COPD Qualified Code(s): J44.9 - Chronic obstructive pulmonary disease, unspecified Category: Medical Code(s): J44.9 - Chronic obstructive pulmonary disease, unspecified (9) Biventricular ICD (implantable cardioverter-defibrillator) in place: Status: Acute Category: Surgical Code(s): Z95.810 - Presence of automatic (implantable) cardiac defibrillator Plan 83-year-old male with a 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 Findings discussed with ED. A CT scan revealed evidence of distended small bowel loops and mesenteric volvulus. patient underwent OR for surgical intervention. Agreed for admission. Continues to not have much bowel function. NG still in place. Surgery assisting with care. Continues to require inpatient management. Problems addressed as follows: Acute abdominal pain likely secondary to SBO s/p laparotomy with lysis of adhesions -Discussed case with surgery this morning. Continue NG to low wall suction. Remains NPO. Continue antibiotics. Ambulate as tolerated. Bowel function - Pain management morphine thru EDITOR DICTIONARY pump , necessitating close monitoring for toxicity risk - Zofran for nausea as needed Suspected acute OM of L-spine -Image concerning for discitis with endplate destruction. Continue vancomycin IV. - ESR elevated at 93 CRP elevated at 83 -Continue to monitor kidney function electrolytes due to risk of toxicity from vancomycin. Kidney function stable with BUN 18, creatinine 0.3. White cell count normal at 10. Repeat CBC, CMP, magnesium ordered for the morning -Other chronic conditions: Hypertension hyperlipidemia hypothyroidism and COPD:\ Condition reviewed and seems to be stable at this point Resume home regimen patient on Synthroid 100 mcg Entresto, bisoprolol Optimize O2 saturation. -Biventricular ICD in place: Continue design engineering technician Monitor for chest pain and arrhythmia on lovenox for DVT ppx On Protonix for GI bleed protection Full code N.p.o.
--- NOTE | 2023-12-29 17:22 | PC.NURSE ---
Patient has been cooperative with care this shift. Patient's NG tube was assessed at 68 this morning, however NG fell out when the patient stood urinate around 0800. Dr. Sood notified. advised to monitor patient's abdomen distension to determine if the tube needed replaced. Patient was given chewing gum to help wake up bowels (bowel sounds were absent upon auscultation during morning assessment). Patient verbalized that he thought this was helping, and bowel sounds were later heard in all 4 quadrants. Patient has ambulated the hallway twice during this shift. Incentive spirometer demonstrated and practiced throughout shift. Patient was experiencing abdomen distension and excessive belching, so NG tube was reinserted up to 68. Patient tolerated well. Patient has been using the FOUNDATION DRILL OPERATOR HELPER pump with morphine throughout the shift for pain management. Patient has periods of groaning in pain, but states that the medicine helps with this. Patient has no complaints at this time.
[2023-12-29] MEDS: IPRATROPIUM/ALBUTEROL 3 ML NEB IH ×2 (18:45→23:27)
--- NOTE | 2023-12-29 18:45 | PC.NURSE ---
Patient moved from the chair to the bed. CIGARETTE PACKAGE EXAMINER syringe replaced. SCUDS placed on the patient's legs. Patient has no complaints at this time.
[2023-12-29] MEDS: PANTOPRAZOLE 40MG VIAL 40 MG IV (22:03)
[2023-12-30] VITALS (10 sets, daily range): BP systolic 128–151; BP diastolic 78–91; PULSE 70–100; RESP 18–20; TEMP 36.5–36.9; O2SAT 95–98; BMI 24.5
--- NOTE | 2023-12-30 05:21 | PC.NURSE ---
Pt has remained comfortable during shift using Morphine CLINIC CLERK. NG remains at 68 cm and to low suction. He has still not passed any flatus, BS hypoactive. No N/V
--- NOTE | 2023-12-30 05:45 | PC.NURSE ---
CONTINGENTS SUPERVISOR pump cleared by this RN - 12.5mg administered t/o shift
[2023-12-30] MEDS: IPRATROPIUM/ALBUTEROL 3 ML NEB IH ×4 (06:23→23:56)
[2023-12-30 06:52] LABS: Basophils % 0.4 % (0.1-2.0); Eosinophils # 0.1 K/mm3 (0.0-0.4); Eosinophils % 0.5 % (0.1-12.0); Hematocrit 34.6 % (42.0-52.0); Lymphocytes # 2.2 K/mm3 (0.7-4.5); Lymphocytes % 21.2 % (10-50); Mean Corpuscular HGB Conc 31.7 g/dL (31.8-35.4); Mean Corpuscular Hemoglobin 32.8 pg (27.0-31.2); Mean Corpuscular Volume 103.3 fl (80-94); Mean Platelet Volume 8.7 fl (7.4-10.4); Monocytes # 0.7 K/mm3 (0.1-1.0); Monocytes % 6.7 % (1.7-9.3); Neutrophils # 7.6 K/mm3 (1.8-7.8); Neutrophils % 71.3 % (37.0-80.0); Platelet Count 150 K/mm3 (142-424); Red Blood Count 3.35 M/mm3 (4.60-6.20); Red Cell Distribution Width 15.3 % (11.5-17.5); White Blood Count 10.6 K/mm3 (4.8-10.8)
[2023-12-30 06:57] LABS: Chloride 105 mmol/L (98-107); Potassium 3.6 mmoL/L (3.5-5.1); Sodium 137 mmol/L (136-145)
[2023-12-30 06:59] LABS: Blood Urea Nitrogen 18 mg/dl (9-20); Creatinine Clearance Estimated 60 mL/min (50-200); Estimated Glomerular Filt Rate 107 ml/min (>60); GFR (African American) 130 ML/MIN (>60)
[2023-12-30 07:00] LABS: Alanine Aminotransferase 48 U/L (12-78); Albumin Level 2.9 g/dl (3.5-5.0); Albumin/Globulin Ratio 1.1 (1.1-1.8); Alkaline Phosphatase 150 U/L (38-126); Anion Gap 6.6 mEq/L (5-15); Aspartate Amino Transferase 43 U/L (17-59); Bilirubin,Total 0.7 mg/dl (0.2-1.3); Calcium 8.5 mg/dl (8.4-10.2); Carbon Dioxide 29 mmol/L (22.0-30.0); Globulin 2.6 g/dL (1.3-3.2); Glucose 81 mg/dl (74-100); Magnesium 1.7 mg/dl (1.6-2.3); Total Protein,Serum 5.5 g/dl (6.3-8.2)
--- NOTE | 2023-12-30 07:01 | EXP.SURG.PN ---
Subjective Patient reports: no new complaints and feels better Narrative: Became somewhat more distended and had increased pain after her nasogastric tube inadvertently removed yesterday. Nasogastric tube was replaced and the patient states that it made things better . He states that he has passed a little bit of gas . Exam Data for Last 24 hours Vital signs and Labs for Last 24 Hours: Temp Pulse Resp BP Pulse Ox O2 Del Method O2 Flow Rate 98.5 F 94 H 18 149/91 H 95 Room Air 2 12/30/23 04:00 12/30/23 06:23 12/30/23 04:00 12/30/23 04:00 12/30/23 06:23 12/30/23 06:50 12/30/23 06:23 FiO2 28 12/29/23 19:46 Laboratory Results - last 24 hr 12/29/23 05:55: WBC 10.6 D, RBC 3.38 L, Hgb 11.1 L, Hct 34.4 L, MCV 102.0 H, MCH 33.0 H, MCHC 32.3, RDW 15.4, Plt Count 156, MPV 8.3, Neut % (Auto) 70.3, Lymph % (Auto) 23.9, [place] % (Auto) 5.1, Eos % (Auto) 0.4, Baso % (Auto) 0.3, Neut # (Auto) 7.4, Lymph # (Auto) 2.5, [place] # (Auto) 0.5, Eos # (Auto) 0.0, Baso # (Auto) 0.0, Sodium 137, Potassium 3.1 L, Chloride 105, Carbon Dioxide 30, Anion Gap 5.1, BUN 18, Creatinine 0.90, Estimated Creat Clear 65, Estimated GFR 80, Est GFR ( Amer) 97, Glucose 81, Calcium 8.5, Total Bilirubin 0.5, AST 35 D, ALT 54 D, Alkaline Phosphatase 151 H, Total Protein 5.1 L, Albumin 2.7 L, Globulin 2.4, Albumin/Globulin Ratio 1.1 12/29/23 14:50: ESR 93 H 12/30/23 05:53: WBC 10.6, RBC 3.35 L, Hgb 11.0 L, Hct 34.6 L, MCV 103.3 H, MCH 32.8 H, MCHC 31.7 L, RDW 15.3, Plt Count 150, MPV 8.7, Neut % (Auto) 71.3, Lymph % (Auto) 21.2, [place] % (Auto) 6.7, Eos % (Auto) 0.5, Baso % (Auto) 0.4, Neut # (Auto) 7.6, Lymph # (Auto) 2.2, [place] # (Auto) 0.7, Eos # (Auto) 0.1, Baso # (Auto) 0.0 I & O for Last 24 hours: Intake & Output 12/27/23 12/28/23 12/29/23 12/30/23 11:59 11:59 11:59 11:59 Intake Total 650 / 650 350 / 350 50 / 50 Output Total 1725 / 1725 1295 / 1295 800 / 800 Balance -1075 / -1075 -945 / -945 -750 / -750 Weight 190 lb 183 lb 3.2 oz 171 lb Constitutional Constitutional: no acute distress *Routine Respiratory Exam Respiratory: Absent respiratory distress *Routine Cardiovascular Exam Cardiovascular: Absent tachycardia *Routine Abdominal Exam Abdominal: Present soft and tenderness (Mild postoperative tenderness) Comments: Incision clean, dry, and intact. No erythema. Progress Note: A&P Assessment and plan (1) Status post laparotomy with lysis of adhesions: Status: Acute Assessment and plan: Stable postoperative day 3. He claims to have passed a small amount of flatus. Nasogastric tube replaced yesterday secondary to increased distention and pain. Continue nasogastric decompression for now (place on drain bag with every 4 hours residual) Await more complete return of bowel function Increase ambulation (continue PT/OT) (2) Small bowel obstruction: Status: Acute
[2023-12-30] MEDS: VANCOMYCIN/WATER FOR INJ (PEG) 1.75 GM/350 ML PIGGYBACK IV (08:21)
[2023-12-30] MEDS: ENOXAPARIN 40MG/0.4ML SYRINGE 40 MG SQ (08:21)
[2023-12-30] MEDS: FLUTICASONE/UMECLIDIN/VILANTER 100/62.5/25MCG INHALER 1 PUFF IH (11:08)
[2023-12-30] MEDS: HYDROCODONE/APAP 5/325 MG TABLET 1 TAB PO (12:14)
[2023-12-30 15:44] LABS: Erythrocyte Sedimentation Rate 124 mm/hr (0-20)
--- NOTE | 2023-12-30 16:50 | PC.NURSE ---
AOX4, CONTINUES TO REQUIRE 2LNC FOR O2 SUPPORT. NG REMOVED BY PATIENT WHILE AMBULATING. DR ACOSTA CONTACTED AND INFORMED OK TO LEAVE OUT NG TUBE FOR NOW. INSTRUCTED TO MONITOR CLOSELY. IF PT BECOMES DISTENDED/NAUSEOUS NG TUBE MAY NEED TO BE REPLACED. TIEING MACHINE OPERATOR D/C THIS SHIFT WITH TOTAL 0F 16MG CLEARED FROM TIEING MACHINE OPERATOR. CURRENTLY RESTING IN BED COMFORTABLY. HAS DENIED N/V THIS SHIFT. MEDICATED X1 FOR PAIN PER MAR WITH GOOD EFFECTIVENESS.
--- NOTE | 2023-12-30 18:05 | P.PN_ITS ---
Subjective *Date: 12/30/23 *Time: 18:06 Interval history: Had some nausea and belching until replacement of NG last night. Feeling little bit better. Passed gas overnight. No bowel movement. Stable on 2 L nasal cannula oxygen. No or vomiting today. Belly pain feeling little bit better. Off DETHISTLER OPERATOR pump today. Medical Exam Vital signs and Labs for Last 24 Hours: Vital Signs Temp Pulse Pulse Resp BP Pulse Ox O2 Del Method 12/30/23 16:53 Nasal Cannula 12/30/23 16:00 90 12/30/23 16:00 98.3 F 92 H 18 151/83 H 96 Nasal Cannula 12/30/23 15:00 Nasal Cannula 12/30/23 13:00 Nasal Cannula 12/30/23 12:00 100 H 12/30/23 12:00 98.5 F 95 H 20 128/81 96 Nasal Cannula 12/30/23 11:00 Nasal Cannula 12/30/23 09:00 Nasal Cannula 12/30/23 08:00 90 12/30/23 08:00 Nasal Cannula 12/30/23 07:39 98.1 F 93 H 18 142/78 H 97 Nasal Cannula 12/30/23 06:50 Room Air 12/30/23 06:23 94 H 12/30/23 06:23 89 12/30/23 06:23 95 Nasal Cannula 12/30/23 05:00 Room Air 12/30/23 04:00 98.5 F 96 H 18 149/91 H 98 Room Air 12/30/23 04:00 93 H 12/30/23 03:00 Room Air 12/30/23 01:00 Room Air 12/30/23 00:00 80 12/29/23 23:55 97.9 F 97 H 18 139/91 H 98 Room Air 12/29/23 23:39 62 12/29/23 23:38 61 12/29/23 23:00 Room Air 12/29/23 22:00 108 H 18 143/86 H 97 Nasal Cannula 12/29/23 21:00 Room Air 12/29/23 20:00 107 H 12/29/23 20:00 Room Air 12/29/23 20:00 98.5 F 88 18 156/87 H 97 Nasal Cannula 12/29/23 19:46 Nasal Cannula 12/29/23 18:49 Room Air 12/29/23 18:47 56 L 12/29/23 18:46 52 L O2 Flow Rate FiO2 12/30/23 16:53 2 12/30/23 16:00 12/30/23 16:00 2 12/30/23 15:00 2 12/30/23 13:00 2 12/30/23 12:00 12/30/23 12:00 2 12/30/23 11:00 2 12/30/23 09:00 2 12/30/23 08:00 12/30/23 08:00 2 12/30/23 07:39 2 12/30/23 06:50 12/30/23 06:23 12/30/23 06:23 12/30/23 06:23 2 12/30/23 05:00 12/30/23 04:00 12/30/23 04:00 12/30/23 03:00 12/30/23 01:00 12/30/23 00:00 12/29/23 23:55 12/29/23 23:39 12/29/23 23:38 12/29/23 23:00 12/29/23 22:00 2 12/29/23 21:00 12/29/23 20:00 12/29/23 20:00 12/29/23 20:00 2 12/29/23 19:46 2 28 12/29/23 18:49 12/29/23 18:47 12/29/23 18:46 Intake and Output 12/30/23 12/30/23 12/30/23 07:59 15:59 23:59 Intake Total 50 / 250 200 / 250 Output Total 550 / 1025 475 / 1025 Balance -500 / -775 -275 / -775 Intake: Intake, Oral Amount 200 / 200 Intake, Total IV Amount 50 / 50 Pipercillin/Tazo 3.375 gm In 0. 50 / 50 9 % Sodium Chloride 50 ml @ 100 mls/hr IV Q8H COUNT INCLUDES THE [facility] Rx#:[id number] Output: Output, Urine Amount 450 / 925 475 / 925 Output, Gastric Drainage Amount 100 / 100 Left Nare 100 / 100 Other: Number of Unmeasured Voids 1 0 Weight 77.564 kg Patient Weight 12/30/23 23:59 Weight 77.564 kg Laboratory Results - last 24 hr 12/30/23 05:53: WBC 10.6, RBC 3.35 L, Hgb 11.0 L, Hct 34.6 L, MCV 103.3 H, MCH 32.8 H, MCHC 31.7 L, RDW 15.3, Plt Count 150, MPV 8.7, Neut % (Auto) 71.3, Lymph % (Auto) 21.2, [place] % (Auto) 6.7, Eos % (Auto) 0.5, Baso % (Auto) 0.4, Neut # (Auto) 7.6, Lymph # (Auto) 2.2, [place] # (Auto) 0.7, Eos # (Auto) 0.1, Baso # (Auto) 0.0, Sodium 137, Potassium 3.6, Chloride 105, Carbon Dioxide 29, Anion Gap 6.6, BUN 18, Creatinine 0.70 D, Estimated Creat Clear 60, Estimated GFR 107, Est GFR ( Amer) 130 D, Glucose 81, Calcium 8.5, Magnesium 1.7, Total Bilirubin 0.7, AST 43, ALT 48, Alkaline Phosphatase 150 H, Total Protein 5.5 L, Albumin 2.9 L, Globulin 2.6, Albumin/Globulin Ratio 1.1 12/30/23 15:00: ESR 124 H I & O for Labs for Last 24 Hours: Intake & Output 12/27/23 12/28/23 12/29/23 12/30/23 23:59 23:59 23:59 23:59 Intake Total 500 / 550 497 / 497 3 / 53 250 / 250 Output Total 0 / 0 1725 / 1875 1545 / 1895 1025 / 1025 Balance 500 / 550 -1228 / -1378 -1542 / -1842 -775 / -775 Weight 81.76 kg 86.183 kg 83 kg 77.564 kg Constitutional: Present no acute distress, average body habitus, chronically ill appearing and cooperative Head: Present atraumatic and normocephalic ENT: Present normal exam Comment:: NG in left nare Respiratory: Present normal respiratory effort; Absent rhonchi, wheezes or crackles Cardiac: Present Reg Rate and Rhythm GI: Present soft, distention, tenderness (Diffuse nonfocal, interval improvement) and normal bowel sounds; Absent guarding or rebound Rectal (male): Present deferred (male): Present deferred Extremities: Present normal inspection and full ROM Skin: Present intact; Absent erythema Neuro: Present Grossly Intact, alert, awake, oriented x 3 and moves all extremities Assessment and Plan *Assessment and plan (1) Small bowel obstruction: Status: Acute Category: Medical Code(s): K56.609 - Unspecified intestinal obstruction, unspecified as to partial versus complete obstruction (2) Abdominal pain: Status: Acute Qualifiers: Abdominal location: unspecified location Qualified Code(s): R10.9 - Unspecified abdominal pain Category: Medical Code(s): R10.9 - Unspecified abdominal pain (3) Status post laparotomy with lysis of adhesions: Status: Acute Category: Surgical Code(s): Z98.890 - Other specified postprocedural states (4) Acute osteomyelitis of lumbar spine: Status: Acute Category: Medical Code(s): M46.26 - Osteomyelitis of vertebra, lumbar region (5) Hypertension: Status: Acute Qualifiers: Hypertension type: unspecified Qualified Code(s): I10 - Essential (primary) hypertension Category: Medical Code(s): I10 - Essential (primary) hypertension (6) Hyperlipidemia: Status: Acute Qualifiers: Hyperlipidemia type: unspecified Qualified Code(s): E78.5 - Hyperlipidemia, unspecified Category: Medical Code(s): E78.5 - Hyperlipidemia, unspecified (7) Hypothyroidism: Status: Chronic Qualifiers: Hypothyroidism type: acquired Qualified Code(s): E03.9 - Hypothyroidism, unspecified Category: Medical Code(s): E03.9 - Hypothyroidism, unspecified (8) COPD (chronic obstructive pulmonary disease): Status: Acute Qualifiers: COPD type: unspecified COPD Qualified Code(s): J44.9 - Chronic obstructive pulmonary disease, unspecified Category: Medical Code(s): J44.9 - Chronic obstructive pulmonary disease, unspecified (9) Biventricular ICD (implantable cardioverter-defibrillator) in place: Status: Acute Category: Surgical Code(s): Z95.810 - Presence of automatic (implantable) cardiac defibrillator Plan 83-year-old male with a 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 Findings discussed with ED. A CT scan revealed evidence of distended small bowel loops and mesenteric volvulus. patient underwent OR for surgical intervention. Agreed for admission. Continues to not have much bowel function. NG still in place. Surgery assisting with care. Continues to require inpatient management. Problems addressed as follows: Acute abdominal pain likely secondary to SBO s/p laparotomy with lysis of adhesions -Discussed case with surgery this morning. Continue NG, placed to gravity bag today. Continue NPO. Continue antibiotics. Ambulate as tolerated -Discontinue DETHISTLER OPERATOR pump, transition to oral hydrocodone 5 mg every 4 hours as needed, necessitating close monitoring for toxicity risk - Zofran for nausea as needed Suspected acute OM of L-spine - Image concerning for discitis with endplate destruction. Continue vancomycin IV. -Repeat ESR and CRP ordered for the morning. Labs showing white cell count of 10. Kidney function normal with BUN 18, creatinine 0.7. I have ordered repeat CBC, CMP, magnesium for the morning -Continue to monitor kidney function electrolytes due to risk of toxicity from vancomycin. -Other chronic conditions: Hypertension hyperlipidemia hypothyroidism and COPD:\ Condition reviewed and seems to be stable at this point Resume home regimen patient on Synthroid 100 mcg Entresto, bisoprolol Optimize O2 saturation. -Biventricular ICD in place: Continue case monitor Monitor for chest pain and arrhythmia on lovenox for DVT ppx On Protonix for GI bleed protection Full code N.p.o.
[2023-12-30] MEDS: SODIUM CHLORIDE 0.9% 10ML VIAL 10 ML IV (20:33)
[2023-12-30] MEDS: PANTOPRAZOLE 40MG VIAL 40 MG IV (20:33)
[2023-12-30] MEDS: MORPHINE 2MG/ML SYRINGE 2 MG IV (21:54)
[2023-12-31] VITALS (13 sets, daily range): BP systolic 134–158; BP diastolic 76–82; PULSE 69–90; RESP 16–18; TEMP 36.6–36.8; O2SAT 96–98; BMI 24.7
[2023-12-31] MEDS: MORPHINE 2MG/ML SYRINGE 2 MG IV ×5 (00:05→21:00)
[2023-12-31 01:27] LABS: Vancomycin,Trough 13.1 ug/mL (5.0-10.0)
--- NOTE | 2023-12-31 01:31 | PC.NURSE ---
consulted [place] at [facility] with vanc trough of 13.1, advised to continue with 2am dose
[2023-12-31] MEDS: VANCOMYCIN/WATER FOR INJ (PEG) 1.75 GM/350 ML PIGGYBACK IV ×2 (01:46→19:56)
[2023-12-31] MEDS: HYDROCODONE/APAP 5/325 MG TABLET 1 TAB PO ×2 (03:54→08:42)
--- NOTE | 2023-12-31 04:42 | PC.NURSE ---
Pt alert and oriented x4 and currently on 2L of o2 and tolerating it well. Pt has c/o pain this shift and has been treated per MAR. Pt denies needs and has had no other acute changes this shift.
--- NOTE | 2023-12-31 06:37 | EXP.SURG.PN ---
Subjective Patient reports: no new complaints and no bowel movement Narrative: Nasogastric tube inadvertently removed yesterday. No nausea or vomiting. The patient claims that he has passed just a little bit of gas . Exam Data for Last 24 hours Vital signs and Labs for Last 24 Hours: Temp Pulse Resp BP Pulse Ox O2 Del Method O2 Flow Rate 97.9 F 70 18 146/81 H 98 Nasal Cannula 2 12/31/23 04:00 12/31/23 04:00 12/31/23 04:00 12/31/23 04:00 12/31/23 04:00 12/31/23 05:00 12/31/23 05:00 FiO2 28 12/29/23 19:46 Laboratory Results - last 24 hr 12/30/23 05:53: WBC 10.6, RBC 3.35 L, Hgb 11.0 L, Hct 34.6 L, MCV 103.3 H, MCH 32.8 H, MCHC 31.7 L, RDW 15.3, Plt Count 150, MPV 8.7, Neut % (Auto) 71.3, Lymph % (Auto) 21.2, [place] % (Auto) 6.7, Eos % (Auto) 0.5, Baso % (Auto) 0.4, Neut # (Auto) 7.6, Lymph # (Auto) 2.2, [place] # (Auto) 0.7, Eos # (Auto) 0.1, Baso # (Auto) 0.0, Sodium 137, Potassium 3.6, Chloride 105, Carbon Dioxide 29, Anion Gap 6.6, BUN 18, Creatinine 0.70 D, Estimated Creat Clear 60, Estimated GFR 107, Est GFR ( Amer) 130 D, Glucose 81, Calcium 8.5, Magnesium 1.7, Total Bilirubin 0.7, AST 43, ALT 48, Alkaline Phosphatase 150 H, Total Protein 5.5 L, Albumin 2.9 L, Globulin 2.6, Albumin/Globulin Ratio 1.1 12/30/23 15:00: ESR 124 H 12/31/23 01:00: Vancomycin Trough 13.1 H I & O for Last 24 hours: Intake & Output 12/28/23 12/29/23 12/30/23 12/31/23 11:59 11:59 11:59 11:59 Intake Total 650 / 650 350 / 350 250 / 250 60 / 60 Output Total 1725 / 1725 1295 / 1295 1125 / 1275 850 / 850 Balance -1075 / -1075 -945 / -945 -875 / -1025 -790 / -790 Weight 190 lb 183 lb 3.2 oz 171 lb 172 lb 7 oz Constitutional Constitutional: no acute distress *Routine Respiratory Exam Respiratory: Absent respiratory distress *Routine Cardiovascular Exam Cardiovascular: Absent tachycardia *Routine Abdominal Exam Abdominal: Present soft, tenderness (Mild postoperative tenderness) and distended (Slight increased distention) Comments: Incision clean, dry, and intact. No erythema. Progress Note: A&P Assessment and plan (1) Status post laparotomy with lysis of adhesions: Status: Acute Assessment and plan: Stable postoperative day 4. Once again, he claims to have passed a small amount of flatus. Nasogastric tube inadvertently removed again yesterday afternoon. Slight increased distention noted on exam. Limited (nurse directed) clear liquids without carbonation. No tray. Await more complete return of bowel function Increase ambulation (continue PT/OT) (2) Small bowel obstruction: Status: Acute
[2023-12-31] MEDS: FLUTICASONE/UMECLIDIN/VILANTER 100/62.5/25MCG INHALER 1 PUFF IH (06:51)
[2023-12-31] MEDS: IPRATROPIUM/ALBUTEROL 3 ML NEB IH ×4 (06:51→23:19)
[2023-12-31 07:19] LABS: Basophils % 0.2 % (0.1-2.0); Eosinophils # 0.1 K/mm3 (0.0-0.4); Eosinophils % 0.4 % (0.1-12.0); Hematocrit 32.8 % (42.0-52.0); Hemoglobin 10.6 g/dL (14.1-18.0); Lymphocytes # 2.4 K/mm3 (0.7-4.5); Lymphocytes % 17.8 % (10-50); Mean Corpuscular HGB Conc 32.2 g/dL (31.8-35.4); Mean Corpuscular Hemoglobin 33.1 pg (27.0-31.2); Mean Corpuscular Volume 102.7 fl (80-94); Mean Platelet Volume 8.5 fl (7.4-10.4); Monocytes # 0.7 K/mm3 (0.1-1.0); Monocytes % 5.1 % (1.7-9.3); Neutrophils # 10.4 K/mm3 (1.8-7.8); Neutrophils % 76.5 % (37.0-80.0); Platelet Count 157 K/mm3 (142-424); Red Blood Count 3.19 M/mm3 (4.60-6.20); Red Cell Distribution Width 15.3 % (11.5-17.5); White Blood Count 13.6 K/mm3 (4.8-10.8)
[2023-12-31 07:40] LABS: Chloride 102 mmol/L (98-107); Sodium 136 mmol/L (136-145)
[2023-12-31 07:43] LABS: Alanine Aminotransferase 37 U/L (12-78); Albumin Level 2.8 g/dl (3.5-5.0); Albumin/Globulin Ratio 1.2 (1.1-1.8); Alkaline Phosphatase 197 U/L (38-126); Anion Gap 10.7 mEq/L (5-15); Aspartate Amino Transferase 32 U/L (17-59); Bilirubin,Total 0.9 mg/dl (0.2-1.3); Blood Urea Nitrogen 14 mg/dl (9-20); Carbon Dioxide 26 mmol/L (22.0-30.0); Creatinine Clearance Estimated 61 mL/min (50-200); Estimated Glomerular Filt Rate 107 ml/min (>60); GFR (African American) 130 ML/MIN (>60); Globulin 2.4 g/dL (1.3-3.2); Total Protein,Serum 5.2 g/dl (6.3-8.2)
[2023-12-31 07:44] LABS: Calcium 8.1 mg/dl (8.4-10.2); Glucose 85 mg/dl (74-100)
[2023-12-31 07:46] LABS: Potassium 2.7 mmoL/L (3.5-5.1)
[2023-12-31 08:17] LABS: Magnesium 1.5 mg/dl (1.6-2.3)
[2023-12-31] MEDS: POTASSIUM CHLORIDE 20MEQ TAB 20 MEQ PO ×3 (08:17→21:00)
[2023-12-31] MEDS: ENOXAPARIN 40MG/0.4ML SYRINGE 40 MG SQ (08:17)
[2023-12-31 08:23] LABS: C-Reactive Protein 129.8 mg/L (0-4)
[2023-12-31] MEDS: KCl 10mEq/100ml 100 ML 100 MEQ IV ×3 (08:42→11:55)
[2023-12-31 08:59] LABS: Vancomycin,Peak 23.2 ug/ml (11-39)
--- NOTE | 2023-12-31 09:20 | EXP.PHA.CONS ---
Pharmacy Consult Date: 12/31/23 Time: 09:20 Referring provider: DR. SWEET Reason for Consult:: VANCOMYCIN TROUGH LEVEL Allergies Allergy/AdvReac Type Severity Reaction Status Date / Time No Known Allergies Allergy Verified 06/24/23 10:25 Home Medications Medication Instructions Recorded Confirmed Type tamsulosin 0.4 mg capsule 0.4 mg PO HS 01/15/23 12/28/23 History apixaban 5 mg tablet (Eliquis) 5 mg PO BID 01/20/23 12/28/23 History allopurinol 100 mg tablet 100 mg PO DAILY 03/09/23 12/28/23 History fluticasone fur. 100 mcg-umeclid 1 inh inhalation DAILY 11/02/23 12/28/23 History 62.5 mcg-vilant 25 mcg inhalat.powder (Trelegy Ellipta) pravastatin 40 mg tablet 40 mg PO HS 11/02/23 12/28/23 History sacubitril 97 mg-valsartan 103 mg 1 tab PO BID 11/02/23 12/28/23 History tablet (Entresto) carvedilol 12.5 mg tablet 12.5 mg PO BID 12/28/23 12/28/23 History empagliflozin 10 mg tablet 10 mg PO DAILY 12/28/23 12/28/23 History gabapentin 100 mg capsule 100 mg PO BID 12/28/23 12/28/23 History levothyroxine 175 mcg tablet 175 mcg PO DAILY 12/28/23 12/28/23 History oxycodone 15 mg tablet 7.5 mg PO Q6HP PRN Moderate Pain 12/28/23 12/28/23 History (Scale Score 5-6) pantoprazole 40 mg tablet,delayed 40 mg PO DAILY 12/28/23 12/28/23 History release piperacillin-tazobactam 4.5 gram 4.5 g IV Q8H 12/28/23 12/28/23 History intravenous solution spironolactone 25 mg tablet 12.5 mg PO DAILY 12/28/23 12/28/23 History vancomycin 1.25 gram/250 mL in 1.25 g IV Q24H 12/28/23 12/28/23 History dextrose 5 % intravenous solution New Prescriptions to Start Prescriptions: Height: 1.78 m Weight: 78.216 kg Laboratory Results:: Laboratory Results - last 24 hr 12/30/23 15:00: ESR 124 H 12/31/23 01:00: Vancomycin Trough 13.1 H 12/31/23 06:07: WBC 13.6 H D, RBC 3.19 L, Hgb 10.6 L, Hct 32.8 L, MCV 102.7 H, MCH 33.1 H, MCHC 32.2, RDW 15.3, Plt Count 157, MPV 8.5, Neut % (Auto) 76.5, Lymph % (Auto) 17.8, [place] % (Auto) 5.1, Eos % (Auto) 0.4, Baso % (Auto) 0.2, Neut # (Auto) 10.4 H, Lymph # (Auto) 2.4, [place] # (Auto) 0.7, Eos # (Auto) 0.1, Baso # (Auto) 0.0, Sodium 136, Potassium 2.7 L* D, Chloride 102, Carbon Dioxide 26, Anion Gap 10.7, BUN 14, Creatinine 0.70, Estimated Creat Clear 61, Estimated GFR 107, Est GFR ( Amer) 130, Glucose 85, Calcium 8.1 L, Magnesium 1.5 L D, Total Bilirubin 0.9, AST 32 D, ALT 37, Alkaline Phosphatase 197 H, C-Reactive Protein 129.8 H, Total Protein 5.2 L, Albumin 2.8 L, Globulin 2.4, Albumin/Globulin Ratio 1.2, Vancomycin Peak 23.2 Medical History: Medical History (Updated 12/27/23 @ 17:25 by LILLI Marquez) Atrial fibrillation AAA (abdominal aortic aneurysm) Sepsis Atrial fibrillation with RVR Chest pain Renal mass H/O medication noncompliance 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 PHARMACY WILL CONTINUE TO MONITOR AND WILL ADJUST DOSE APPROPRIATE. -BETTY CAMPOVERDE PHARMD
[2023-12-31] MEDS: MAGNESIUM SULFATE IN WATER 2 GM/50 ML PIGGYBACK IV (09:50)
--- NOTE | 2023-12-31 12:28 | EXP.ACUTE.PN ---
Subjective *Date: 12/31/23 *Time: 18:20 Interval history: NG tube came out last night accidentally again. 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 No nausea or vomiting. Feels like he is going to have a bowel movement today. Afebrile. Denies any chest pain or shortness of breath. Complaining of some mild back pain. Medical Exam Vital signs and Labs for Last 24 Hours: Vital Signs Temp Pulse Pulse Resp BP Pulse Ox O2 Del Method 12/31/23 12:23 Nasal Cannula 12/31/23 11:39 97.8 F 69 18 134/78 98 Nasal Cannula 12/31/23 11:00 Nasal Cannula 12/31/23 09:00 Nasal Cannula 12/31/23 08:00 Nasal Cannula 12/31/23 08:00 70 12/31/23 07:33 98.1 F 70 16 139/76 98 Nasal Cannula 12/31/23 06:52 71 12/31/23 06:52 71 12/31/23 06:52 97 Nasal Cannula 12/31/23 06:42 Room Air 12/31/23 05:00 Nasal Cannula 12/31/23 04:00 70 12/31/23 04:00 97.9 F 70 18 146/81 H 98 Nasal Cannula 12/31/23 03:00 Room Air 12/31/23 01:00 Room Air 12/31/23 00:00 70 12/31/23 00:00 98.0 F 70 18 148/82 H 97 Nasal Cannula 12/30/23 23:58 93 H 12/30/23 23:58 93 H 12/30/23 23:00 Nasal Cannula 12/30/23 21:00 Room Air 12/30/23 20:00 95 Nasal Cannula 12/30/23 20:00 97.7 F 93 H 18 148/78 H 95 Nasal Cannula 12/30/23 20:00 70 12/30/23 18:33 91 H 12/30/23 18:33 91 H 12/30/23 18:33 95 Nasal Cannula 12/30/23 16:53 Nasal Cannula 12/30/23 16:00 90 12/30/23 16:00 98.3 F 92 H 18 151/83 H 96 Nasal Cannula 12/30/23 15:00 Nasal Cannula 12/30/23 13:00 Nasal Cannula O2 Flow Rate 12/31/23 12:23 2 12/31/23 11:39 2 12/31/23 11:00 2 12/31/23 09:00 2 12/31/23 08:00 2 12/31/23 08:00 12/31/23 07:33 2 12/31/23 06:52 12/31/23 06:52 12/31/23 06:52 2 12/31/23 06:42 12/31/23 05:00 2 12/31/23 04:00 12/31/23 04:00 2 12/31/23 03:00 12/31/23 01:00 12/31/23 00:00 12/31/23 00:00 2 12/30/23 23:58 12/30/23 23:58 12/30/23 23:00 2 12/30/23 21:00 12/30/23 20:00 2 12/30/23 20:00 2 12/30/23 20:00 12/30/23 18:33 12/30/23 18:33 12/30/23 18:33 2 12/30/23 16:53 2 12/30/23 16:00 12/30/23 16:00 2 12/30/23 15:00 2 12/30/23 13:00 2 Intake and Output 12/30/23 12/31/23 12/31/23 23:59 07:59 15:59 Intake Total 60 / 60 0 / 60 Output Total 400 / 1425 500 / 600 100 / 600 Balance -400 / -1115 -440 / -540 -100 / -540 Intake: Intake, Oral Amount 60 / 60 0 / 60 Output: Output, Urine Amount 400 / 1325 500 / 600 100 / 600 Other: Weight 78.216 kg 78.216 kg Patient Weight 12/31/23 23:59 Weight 78.216 kg Laboratory Results - last 24 hr 12/30/23 15:00: ESR 124 H 12/31/23 01:00: Vancomycin Trough 13.1 H 12/31/23 06:07: WBC 13.6 H D, RBC 3.19 L, Hgb 10.6 L, Hct 32.8 L, MCV 102.7 H, MCH 33.1 H, MCHC 32.2, RDW 15.3, Plt Count 157, MPV 8.5, Neut % (Auto) 76.5, Lymph % (Auto) 17.8, [place] % (Auto) 5.1, Eos % (Auto) 0.4, Baso % (Auto) 0.2, Neut # (Auto) 10.4 H, Lymph # (Auto) 2.4, [place] # (Auto) 0.7, Eos # (Auto) 0.1, Baso # (Auto) 0.0, Sodium 136, Potassium 2.7 L* D, Chloride 102, Carbon Dioxide 26, Anion Gap 10.7, BUN 14, Creatinine 0.70, Estimated Creat Clear 61, Estimated GFR 107, Est GFR ( Amer) 130, Glucose 85, Calcium 8.1 L, Magnesium 1.5 L D, Total Bilirubin 0.9, AST 32 D, ALT 37, Alkaline Phosphatase 197 H, C-Reactive Protein 129.8 H, Total Protein 5.2 L, Albumin 2.8 L, Globulin 2.4, Albumin/Globulin Ratio 1.2, Vancomycin Peak 23.2 I & O for Labs for Last 24 Hours: Intake & Output 12/28/23 12/29/23 12/30/23 12/31/23 23:59 23:59 23:59 23:59 Intake Total 497 / 497 3 / 53 250 / 310 60 / 60 Output Total 1725 / 1875 1545 / 1895 1425 / 1425 600 / 600 Balance -1228 / -1378 -1542 / -1842 -1175 / -1115 -540 / -540 Weight 86.183 kg 83 kg 77.564 kg 78.216 kg Constitutional: Present no acute distress, average body habitus, chronically ill appearing and cooperative Head: Present atraumatic and normocephalic ENT: Present normal exam Respiratory: Present normal respiratory effort; Absent rhonchi, wheezes or crackles Cardiac: Present Reg Rate and Rhythm GI: Present soft, distention, tenderness (Mild, interval improvement) and normal bowel sounds; Absent guarding or rebound Rectal (male): Present deferred (male): Present deferred Extremities: Present normal inspection and full ROM Skin: Present intact; Absent erythema Neuro: Present Grossly Intact, alert, awake, oriented x 3 and moves all extremities Assessment and Plan *Assessment and plan (1) Small bowel obstruction: Status: Acute Category: Medical Code(s): K56.609 - Unspecified intestinal obstruction, unspecified as to partial versus complete obstruction (2) Abdominal pain: Status: Acute Qualifiers: Abdominal location: unspecified location Qualified Code(s): R10.9 - Unspecified abdominal pain Category: Medical Code(s): R10.9 - Unspecified abdominal pain (3) Status post laparotomy with lysis of adhesions: Status: Acute Category: Surgical Code(s): Z98.890 - Other specified postprocedural states (4) Acute osteomyelitis of lumbar spine: Status: Acute Category: Medical Code(s): M46.26 - Osteomyelitis of vertebra, lumbar region (5) Hypertension: Status: Acute Qualifiers: Hypertension type: unspecified Qualified Code(s): I10 - Essential (primary) hypertension Category: Medical Code(s): I10 - Essential (primary) hypertension (6) Hyperlipidemia: Status: Acute Qualifiers: Hyperlipidemia type: unspecified Qualified Code(s): E78.5 - Hyperlipidemia, unspecified Category: Medical Code(s): E78.5 - Hyperlipidemia, unspecified (7) Hypothyroidism: Status: Chronic Qualifiers: Hypothyroidism type: acquired Qualified Code(s): E03.9 - Hypothyroidism, unspecified Category: Medical Code(s): E03.9 - Hypothyroidism, unspecified (8) COPD (chronic obstructive pulmonary disease): Status: Acute Qualifiers: COPD type: unspecified COPD Qualified Code(s): J44.9 - Chronic obstructive pulmonary disease, unspecified Category: Medical Code(s): J44.9 - Chronic obstructive pulmonary disease, unspecified (9) Biventricular ICD (implantable cardioverter-defibrillator) in place: Status: Acute Category: Surgical Code(s): Z95.810 - Presence of automatic (implantable) cardiac defibrillator Plan 83-year-old male with a 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 Findings discussed with ED. A CT scan revealed evidence of distended small bowel loops and mesenteric volvulus. patient underwent OR for surgical intervention. Agreed for admission. Continues to not have much bowel function. NG came out overnight. Will continue to leave out today unless patient develops nausea and vomiting. Surgery assisting with care. Surgery assisting with care. Continues to require inpatient management. Problems addressed as follows: Acute abdominal pain likely secondary to SBO s/p laparotomy with lysis of adhesions -Discussed case with surgery this morning. Continue NPO. NG out. continue antibiotics. Ambulate as tolerated - hydrocodone 5 mg every 4 hours as needed, necessitating close monitoring for toxicity risk - Zofran for nausea as needed Suspected acute OM of L-spine - Image concerning for discitis with endplate destruction. Continue vancomycin IV, resume Zosyn. Attempting to obtain records from [place]. Began treatment at the end of October. -Repeat ESR and CRP, 81 and 129 respectively. Will monitor every 2 to 3 days. White cell count increased today at 13.6. No other signs of systemic infection. Kidney function normal with BUN 14, creatinine 0.7. I have ordered repeat CBC, CMP, magnesium for the morning -Continue to monitor kidney function electrolytes due to risk of toxicity from vancomycin. Stable chronic conditions: Hypertension hyperlipidemia hypothyroidism and COPD: Synthroid 100 mcg Entresto, bisoprolol Optimize O2 saturation, oxygen as needed, currently on 2 L for sats greater 90%. -Biventricular ICD in place: Continue quality assurance monitor body Monitor for chest pain and arrhythmia on lovenox for DVT ppx On Protonix for GI bleed protection Full code N.p.o.
[2023-12-31] MEDS: PIPERACILLIN/TAZO 4.5 GM in 0.9 % SODIUM CHLORIDE 100 ML IV ×2 (12:55→19:18)
[2023-12-31 15:57] LABS: Erythrocyte Sedimentation Rate 81 mm/hr (0-20)
--- NOTE | 2023-12-31 18:01 | PC.NURSE ---
AOX4, DID SIT UP TO CHAIR FOR MOST OF THE DAY AND TOLERATED WELL. MEDICATED FOR PAIN PER MAR. POTASSIUM AND MAG REPLACED THIS SHIFT. PT HAS DENIED N/V. BOWEL SOUNDS PRESENT AND NO S/S ABD DISTENTION.
[2023-12-31] MEDS: PANTOPRAZOLE 40MG VIAL 40 MG IV (21:00)
[2023-12-31] MEDS: SODIUM CHLORIDE 0.9% 10ML VIAL 10 ML IV (21:00)
[2024-01-01] VITALS (11 sets, daily range): BP systolic 138–144; BP diastolic 76–83; PULSE 70–95; RESP 16–21; TEMP 36.6–36.9; O2SAT 95–100; BMI 26.0
[2024-01-01] MEDS: PIPERACILLIN/TAZO 4.5 GM in 0.9 % SODIUM CHLORIDE 100 ML IV ×3 (02:26→18:36)
[2024-01-01] MEDS: MORPHINE 2MG/ML SYRINGE 2 MG IV (02:26)
[2024-01-01] MEDS: FLUTICASONE/UMECLIDIN/VILANTER 100/62.5/25MCG INHALER 1 PUFF IH (06:12)
[2024-01-01] MEDS: IPRATROPIUM/ALBUTEROL 3 ML NEB IH ×3 (06:12→18:40)
[2024-01-01 06:19] LABS: Basophils % 0.5 % (0.1-2.0); Eosinophils # 0.1 K/mm3 (0.0-0.4); Eosinophils % 1.1 % (0.1-12.0); Hematocrit 32.9 % (42.0-52.0); Hemoglobin 10.5 g/dL (14.1-18.0); Lymphocytes % 21.1 % (10-50); Mean Corpuscular HGB Conc 31.9 g/dL (31.8-35.4); Mean Corpuscular Hemoglobin 32.1 pg (27.0-31.2); Mean Corpuscular Volume 100.7 fl (80-94); Mean Platelet Volume 8.9 fl (7.4-10.4); Monocytes # 0.6 K/mm3 (0.1-1.0); Neutrophils # 6.7 K/mm3 (1.8-7.8); Neutrophils % 71.4 % (37.0-80.0); Platelet Count 163 K/mm3 (142-424); Red Blood Count 3.27 M/mm3 (4.60-6.20); Red Cell Distribution Width 15.3 % (11.5-17.5); White Blood Count 9.3 K/mm3 (4.8-10.8)
[2024-01-01 06:21] LABS: Chloride 104 mmol/L (98-107); Potassium 3.4 mmoL/L (3.5-5.1); Sodium 135 mmol/L (136-145)
[2024-01-01 06:23] LABS: Blood Urea Nitrogen 12 mg/dl (9-20); Creatinine Clearance Estimated 64 mL/min (50-200); Estimated Glomerular Filt Rate 107 ml/min (>60); GFR (African American) 130 ML/MIN (>60)
[2024-01-01 06:24] LABS: Alanine Aminotransferase 35 U/L (12-78); Albumin Level 2.6 g/dl (3.5-5.0); Albumin/Globulin Ratio 1.2 (1.1-1.8); Alkaline Phosphatase 200 U/L (38-126); Anion Gap 8.4 mEq/L (5-15); Aspartate Amino Transferase 31 U/L (17-59); Bilirubin,Total 0.9 mg/dl (0.2-1.3); Calcium 8.2 mg/dl (8.4-10.2); Carbon Dioxide 26 mmol/L (22.0-30.0); Globulin 2.2 g/dL (1.3-3.2); Glucose 92 mg/dl (74-100); Total Protein,Serum 4.8 g/dl (6.3-8.2)
[2024-01-01 06:27] LABS: Phosphorous 2.4 mg/dl (2.5-4.5)
[2024-01-01 06:28] LABS: Magnesium 1.6 mg/dl (1.6-2.3)
[2024-01-01] MEDS: ENOXAPARIN 40MG/0.4ML SYRINGE 40 MG SQ (07:57)
[2024-01-01] MEDS: POTASSIUM CHLORIDE 20MEQ TAB 20 MEQ PO ×3 (07:58→20:05)
[2024-01-01] MEDS: HYDROCODONE/APAP 5/325 MG TABLET 1 TAB PO ×3 (07:58→18:35)
[2024-01-01] MEDS: MAGNESIUM SULFATE IN WATER 2 GM/50 ML PIGGYBACK IV (09:43)
--- NOTE | 2024-01-01 09:46 | EXP.SURG.PN ---
Subjective Patient reports: no new complaints and no bowel movement Narrative: No nausea or vomiting. Once again, the patient claims that he has passed just a little bit of gas . Exam Data for Last 24 hours Vital signs and Labs for Last 24 Hours: Temp Pulse Resp BP Pulse Ox O2 Del Method O2 Flow Rate 98.4 F 70 20 141/78 H 98 Nasal Cannula 1 01/01/24 07:22 01/01/24 08:00 01/01/24 07:22 01/01/24 07:22 01/01/24 07:22 01/01/24 08:19 01/01/24 08:19 FiO2 28 12/29/23 19:46 Laboratory Results - last 24 hr 12/31/23 15:28: ESR 81 H 01/01/24 05:55: WBC 9.3 D, RBC 3.27 L, Hgb 10.5 L, Hct 32.9 L, MCV 100.7 H, MCH 32.1 H, MCHC 31.9, RDW 15.3, Plt Count 163, MPV 8.9, Neut % (Auto) 71.4, Lymph % (Auto) 21.1, [place] % (Auto) 6.0, Eos % (Auto) 1.1, Baso % (Auto) 0.5, Neut # (Auto) 6.7, Lymph # (Auto) 2.0, [place] # (Auto) 0.6, Eos # (Auto) 0.1, Baso # (Auto) 0.0, Sodium 135 L, Potassium 3.4 L D, Chloride 104, Carbon Dioxide 26, Anion Gap 8.4, BUN 12, Creatinine 0.70, Estimated Creat Clear 64, Estimated GFR 107, Est GFR ( Amer) 130, Glucose 92, Calcium 8.2 L, Phosphorus 2.4 L, Magnesium 1.6, Total Bilirubin 0.9, AST 31, ALT 35, Alkaline Phosphatase 200 H, Total Protein 4.8 L, Albumin 2.6 L, Globulin 2.2, Albumin/Globulin Ratio 1.2 I & O for Last 24 hours: Intake & Output 12/29/23 12/30/23 12/31/23 01/01/24 11:59 11:59 11:59 11:59 Intake Total 350 / 350 250 / 250 60 / 60 1140 / 1140 Output Total 1295 / 1295 1125 / 1275 1150 / 1150 900 / 900 Balance -945 / -945 -875 / -1025 -1090 / -1090 240 / 240 Weight 183 lb 3.2 oz 171 lb 172 lb 7 oz 182 lb 2 oz Constitutional Constitutional: no acute distress *Routine Respiratory Exam Respiratory: Absent respiratory distress *Routine Cardiovascular Exam Cardiovascular: Absent tachycardia *Routine Abdominal Exam Abdominal: Present soft, tenderness (Mild postoperative tenderness) and distended (mild) Comments: Incision clean, dry, and intact. No erythema. Progress Note: A&P Assessment and plan (1) Status post laparotomy with lysis of adhesions: Status: Acute Assessment and plan: Stable postoperative day 5. He continues to claim to have passed a small amount of flatus. He remains slightly distended. Continue Limited (nurse directed) clear liquids without carbonation. No tray. Suppository and/or enema Await more complete return of bowel function Increase ambulation (continue PT/OT) (2) Small bowel obstruction: Status: Acute
[2024-01-01] MEDS: KCl 10mEq/100ml 100 ML 100 MEQ IV ×2 (11:38→12:59)
[2024-01-01] MEDS: BISACODYL 10MG SUPP 10 MG RC (12:35)
[2024-01-01] MEDS: VANCOMYCIN/WATER FOR INJ (PEG) 1.75 GM/350 ML PIGGYBACK IV (13:49)
--- NOTE | 2024-01-01 14:11 | P.PN_ITS ---
Subjective *Date: 01/01/24 *Time: 14:11 Interval history: Patient passing small amounts of gas. No nausea or vomiting. Tolerating sips and chips. Afebrile. Feels like he can have a bowel movement or pass more gas. Stable on 1 L nasal cannula oxygen. Still having some mild abdominal d iscomfort but showing improvement clinically. Medical Exam Vital signs and Labs for Last 24 Hours: Vital Signs Temp Pulse Pulse Resp BP Pulse Ox O2 Del Method 01/01/24 14:08 Nasal Cannula 01/01/24 12:45 Nasal Cannula 01/01/24 11:07 97.8 F 70 17 138/81 97 Nasal Cannula 01/01/24 11:01 95 H 01/01/24 11:01 87 01/01/24 11:01 95 Nasal Cannula 01/01/24 09:58 Nasal Cannula 01/01/24 08:19 Nasal Cannula 01/01/24 08:00 70 01/01/24 08:00 Nasal Cannula 01/01/24 07:22 98.4 F 70 20 141/78 H 98 Nasal Cannula 01/01/24 06:33 Nasal Cannula 01/01/24 06:13 70 01/01/24 06:13 70 01/01/24 06:13 98 Nasal Cannula 01/01/24 05:00 Nasal Cannula 01/01/24 04:00 97.8 F 70 18 138/79 98 Room Air 01/01/24 04:00 70 01/01/24 02:49 Nasal Cannula 01/01/24 00:59 Nasal Cannula 01/01/24 00:00 70 01/01/24 00:00 97.9 F 70 18 140/76 99 12/31/23 23:19 70 12/31/23 23:19 73 12/31/23 23:00 Nasal Cannula 12/31/23 21:00 Nasal Cannula 12/31/23 20:00 Room Air 12/31/23 20:00 98.3 F 70 18 158/78 H 98 Nasal Cannula 12/31/23 20:00 70 12/31/23 18:22 87 12/31/23 18:22 87 12/31/23 18:22 96 Nasal Cannula 12/31/23 17:00 Nasal Cannula 12/31/23 16:00 80 12/31/23 15:36 98.0 F 70 18 141/80 H 98 Nasal Cannula 12/31/23 15:00 Nasal Cannula O2 Flow Rate 01/01/24 14:08 1 01/01/24 12:45 1 01/01/24 11:07 01/01/24 11:01 01/01/24 11:01 01/01/24 11:01 1 01/01/24 09:58 1 01/01/24 08:19 1 01/01/24 08:00 01/01/24 08:00 1 01/01/24 07:22 2 01/01/24 06:33 1 01/01/24 06:13 01/01/24 06:13 01/01/24 06:13 2 01/01/24 05:00 2 01/01/24 04:00 2 01/01/24 04:00 01/01/24 02:49 2 01/01/24 00:59 2 01/01/24 00:00 01/01/24 00:00 2 12/31/23 23:19 12/31/23 23:19 12/31/23 23:00 2 12/31/23 21:00 2 12/31/23 20:00 12/31/23 20:00 2 12/31/23 20:00 12/31/23 18:22 12/31/23 18:22 12/31/23 18:22 2 12/31/23 17:00 2 12/31/23 16:00 12/31/23 15:36 2 12/31/23 15:00 2 Intake and Output 12/31/23 01/01/24 01/01/24 23:59 07:59 15:59 Intake Total 0 / 1200 690 / 1390 700 / 1390 Output Total 300 / 1050 450 / 451 1 / 451 Balance -300 / 150 240 / 939 699 / 939 Intake: Intake, Oral Amount 0 / 300 240 / 240 0 / 240 Intake, Total IV Amount 450 / 1150 700 / 1150 KCl 10mEq/100ml 100 ml @ 100 200 / 200 mls/hr IV Q1H [facility] Rx#:[id number] Magnesium Sulfate in Water 2 gm 50 / 50 In 50 ml @ 50 mls/hr IV ONCE ONE Rx#:[id number] Piperacillin/Tazo 4.5 gm In 0.9 100 / 200 100 / 200 % Sodium Chloride 100 ml @ 200 mls/hr IV Q8H [facility] Rx#:[id number] Vancomycin/Water For Inj (Peg) 350 / 350 1.75 gm In 350 ml @ 175 mls/hr IV Q18H [facility] Rx#:[id number] Vancomycin/Water For Inj (Peg) 350 / 350 1.75 gm In 350 ml @ 175 mls/hr IV Q18H [facility] Rx#:[id number] Output: Output, Urine Amount 300 / 1050 450 / 451 1 451 Other: Number of Unmeasured Voids 0 0 Weight 82.611 kg Patient Weight 01/01/24 23:59 Weight 82.611 kg Laboratory Results - last 24 hr 12/31/23 15:28: ESR 81 H 01/01/24 05:55: WBC 9.3 D, RBC 3.27 L, Hgb 10.5 L, Hct 32.9 L, MCV 100.7 H, MCH 32.1 H, MCHC 31.9, RDW 15.3, Plt Count 163, MPV 8.9, Neut % (Auto) 71.4, Lymph % (Auto) 21.1, [place] % (Auto) 6.0, Eos % (Auto) 1.1, Baso % (Auto) 0.5, Neut # (Auto) 6.7, Lymph # (Auto) 2.0, [place] # (Auto) 0.6, Eos # (Auto) 0.1, Baso # (Auto) 0.0, Sodium 135 L, Potassium 3.4 L D, Chloride 104, Carbon Dioxide 26, Anion Gap 8.4, BUN 12, Creatinine 0.70, Estimated Creat Clear 64, Estimated GFR 107, Est GFR ( Amer) 130, Glucose 92, Calcium 8.2 L, Phosphorus 2.4 L, Magnesium 1.6, Total Bilirubin 0.9, AST 31, ALT 35, Alkaline Phosphatase 200 H, Total Protein 4.8 L, Albumin 2.6 L, Globulin 2.2, Albumin/Globulin Ratio 1.2 I & O for Labs for Last 24 Hours: Intake & Output 12/29/23 12/30/23 12/31/23 01/01/24 23:59 23:59 23:59 23:59 Intake Total 250 / 310 510 / 1200 1390 / 1390 Output Total 1545 / 1895 1425 / 1425 1050 / 1050 451 / 451 Balance -1542 / -1842 -1175 / -1115 -540 / 150 939 / 939 Weight 83 kg 77.564 kg 78.216 kg 82.611 kg Constitutional: Present no acute distress, average body habitus, chronically ill appearing and cooperative Head: Present atraumatic and normocephalic ENT: Present normal exam Respiratory: Present normal respiratory effort; Absent rhonchi, wheezes or crackles Cardiac: Present Reg Rate and Rhythm GI: Present soft, distention, tenderness (Mild, interval improvement) and normal bowel sounds; Absent guarding or rebound Rectal (male): Present deferred (male): Present deferred Extremities: Present normal inspection and full ROM Skin: Present intact; Absent erythema Neuro: Present Grossly Intact, alert, awake, oriented x 3 and moves all extremities Assessment and Plan *Assessment and plan (1) Small bowel obstruction: Status: Acute Category: Medical Code(s): K56.609 - Unspecified intestinal obstruction, unspecified as to partial versus complete obstruction (2) Abdominal pain: Status: Acute Qualifiers: Abdominal location: unspecified location Qualified Code(s): R10.9 - Unspecified abdominal pain Category: Medical Code(s): R10.9 - Unspecified abdominal pain (3) Status post laparotomy with lysis of adhesions: Status: Acute Category: Surgical Code(s): Z98.890 - Other specified postprocedural states (4) Acute osteomyelitis of lumbar spine: Status: Acute Category: Medical Code(s): M46.26 - Osteomyelitis of vertebra, lumbar region (5) Hypertension: Status: Acute Qualifiers: Hypertension type: unspecified Qualified Code(s): I10 - Essential (primary) hypertension Category: Medical Code(s): I10 - Essential (primary) hypertension (6) Hyperlipidemia: Status: Acute Qualifiers: Hyperlipidemia type: unspecified Qualified Code(s): E78.5 - Hyperlipidemia, unspecified Category: Medical Code(s): E78.5 - Hyperlipidemia, unspecified (7) Hypothyroidism: Status: Chronic Qualifiers: Hypothyroidism type: acquired Qualified Code(s): E03.9 - Hypothyroidism, unspecified Category: Medical Code(s): E03.9 - Hypothyroidism, unspecified (8) COPD (chronic obstructive pulmonary disease): Status: Acute Qualifiers: COPD type: unspecified COPD Qualified Code(s): J44.9 - Chronic obstructive pulmonary disease, unspecified Category: Medical Code(s): J44.9 - Chronic obstructive pulmonary disease, unspecified (9) Biventricular ICD (implantable cardioverter-defibrillator) in place: Status: Acute Category: Surgical Code(s): Z95.810 - Presence of automatic (implantable) cardiac defibrillator Plan 83-year-old male with a 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 Findings discussed with ED. A CT scan revealed evidence of distended small bowel loops and mesenteric volvulus. patient underwent OR for surgical intervention. Agreed for admission. Continues to not have much bowel function. NG out. Will continue to leave out today unless patient develops nausea and vomiting. Surgery assisting with care. Surgery assisting with care. Continues to require inpatient management. Problems addressed as follows: Acute abdominal pain likely secondary to SBO s/p laparotomy with lysis of adhesions -Discussed case with surgery this morning. Advance to clear liquids. Will stimulate from below with bisacodyl suppository. continue antibiotics. Ambulate as tolerated -Continue to receive IV morphine, has received 6 doses in the past 24 hours. Only 2 doses of hydrocodone in the past 24 hours. Discontinue IV morphine, initiate Tylenol 650 every 4 hours as needed. Wean hydrocodone to every 8 hours. 5/325 mg tablets. necessitating close monitoring for toxicity risk - Zofran for nausea as needed -Magnesium 1.6, will replace IV today. 2 g ordered once. -Phosphorus 2.4, monitor for need for replacement with advancement of diet. Repeat phosphorus ordered for the morning. Suspected acute OM of L-spine - Image concerning for discitis with endplate destruction. Continue vancomycin IV, resume Zosyn. Attempting to obtain records from [place]. Began treatment at the end of October. -Repeat ESR and CRP ordered for the morning, White cell count improved to 9.3. No other signs of systemic infection. Kidney function normal with BUN 12, creatinine 0.7. I hAve ordered repeat CBC, CMP, magnesium for the morning -Continue to monitor kidney function electrolytes due to risk of toxicity from vancomycin. Stable chronic conditions: Hypertension hyperlipidemia hypothyroidism and COPD: Synthroid 100 mcg Entresto, bisoprolol Optimize O2 saturation, oxygen as needed, currently on 2 L for sats greater 90%. 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
--- NOTE | 2024-01-01 14:57 | PC.NURSE ---
PT is aox4, up with assistance times one, 02- 1L NC WITH sats in the 90's, R UA PICC DL, Replacement potassium x 2 bags and one replacement bag of magnesium given, pain meds given twice today.
--- NOTE | 2024-01-01 15:39 | PC.NURSE ---
SPOKE WITH DR SWEET, OK TO CHANGE ESR TO AM LABS
--- NOTE | 2024-01-01 17:26 | PC.NURSE ---
very very small bowel movement, still charted though
[2024-01-01] MEDS: PANTOPRAZOLE 40MG VIAL 40 MG IV (20:05)
[2024-01-01] MEDS: ACETAMINOPHEN 325MG TAB 650 MG PO (23:28)
[2024-01-02] VITALS (13 sets, daily range): BP systolic 150–159; BP diastolic 69–90; PULSE 70–120; RESP 16–24; TEMP 36.5–36.6; O2SAT 92–99; BMI 26.0
[2024-01-02] MEDS: IPRATROPIUM/ALBUTEROL 3 ML NEB IH ×5 (00:22→23:09)
[2024-01-02] MEDS: HYDROCODONE/APAP 5/325 MG TABLET 1 TAB PO ×2 (01:44→17:08)
[2024-01-02] MEDS: PIPERACILLIN/TAZO 4.5 GM in 0.9 % SODIUM CHLORIDE 100 ML IV ×3 (04:14→21:01)
[2024-01-02] MEDS: FLUTICASONE/UMECLIDIN/VILANTER 100/62.5/25MCG INHALER 1 PUFF IH (06:31)
[2024-01-02] MEDS: VANCOMYCIN/WATER FOR INJ (PEG) 1.75 GM/350 ML PIGGYBACK IV (08:14)
[2024-01-02] MEDS: POTASSIUM CHLORIDE 20MEQ TAB 20 MEQ PO ×3 (08:15→21:01)
[2024-01-02] MEDS: ENOXAPARIN 40MG/0.4ML SYRINGE 40 MG SQ (08:15)
[2024-01-02 08:25] LABS: Basophils # 0.1 K/mm3 (0-0.2); Basophils % 0.4 % (0.1-2.0); Eosinophils # 0.1 K/mm3 (0.0-0.4); Eosinophils % 1.1 % (0.1-12.0); Hematocrit 36.8 % (42.0-52.0); Hemoglobin 11.7 g/dL (14.1-18.0); Lymphocytes # 2.2 K/mm3 (0.7-4.5); Lymphocytes % 21.3 % (10-50); Mean Corpuscular HGB Conc 31.7 g/dL (31.8-35.4); Mean Corpuscular Hemoglobin 32.8 pg (27.0-31.2); Mean Corpuscular Volume 103.4 fl (80-94); Mean Platelet Volume 8.8 fl (7.4-10.4); Monocytes # 0.5 K/mm3 (0.1-1.0); Monocytes % 4.9 % (1.7-9.3); Neutrophils # 7.5 K/mm3 (1.8-7.8); Neutrophils % 72.2 % (37.0-80.0); Platelet Count 199 K/mm3 (142-424); Red Blood Count 3.55 M/mm3 (4.60-6.20); Red Cell Distribution Width 15.5 % (11.5-17.5); White Blood Count 10.4 K/mm3 (4.8-10.8)
[2024-01-02 08:28] LABS: Chloride 105 mmol/L (98-107); Potassium 3.6 mmoL/L (3.5-5.1); Sodium 134 mmol/L (136-145)
[2024-01-02 08:31] LABS: Alanine Aminotransferase 35 U/L (12-78); Albumin Level 2.9 g/dl (3.5-5.0); Albumin/Globulin Ratio 1.2 (1.1-1.8); Alkaline Phosphatase 265 U/L (38-126); Anion Gap 10.6 mEq/L (5-15); Aspartate Amino Transferase 34 U/L (17-59); Bilirubin,Total 0.7 mg/dl (0.2-1.3); Blood Urea Nitrogen 10 mg/dl (9-20); Calcium 8.3 mg/dl (8.4-10.2); Carbon Dioxide 22 mmol/L (22.0-30.0); Creatinine Clearance Estimated 64 mL/min (50-200); Estimated Glomerular Filt Rate 92 ml/min (>60); GFR (African American) 111 ML/MIN (>60); Globulin 2.4 g/dL (1.3-3.2); Glucose 90 mg/dl (74-100); Magnesium 1.8 mg/dl (1.6-2.3); Total Protein,Serum 5.3 g/dl (6.3-8.2)
[2024-01-02 08:36] LABS: C-Reactive Protein 87.7 mg/L (0-4)
--- NOTE | 2024-01-02 09:07 | EXP.SURG.PN ---
Subjective Patient reports: flatus and no bowel movement Narrative: He states that he had a bowel movement about 15 minutes after the suppository yesterday . Exam Data for Last 24 hours Vital signs and Labs for Last 24 Hours: Temp Pulse Resp BP Pulse Ox O2 Del Method O2 Flow Rate 97.8 F 70 22 156/84 H 99 Room Air 1 01/02/24 08:00 01/02/24 08:00 01/02/24 08:00 01/02/24 08:00 01/02/24 08:00 01/02/24 08:00 01/01/24 19:55 FiO2 28 12/29/23 19:46 Laboratory Results - last 24 hr 01/02/24 : WBC 10.4, RBC 3.55 L, Hgb 11.7 L, Hct 36.8 L, MCV 103.4 H, MCH 32.8 H, MCHC 31.7 L, RDW 15.5, Plt Count 199, MPV 8.8, Neut % (Auto) 72.2, Lymph % (Auto) 21.3, [place] % (Auto) 4.9, Eos % (Auto) 1.1, Baso % (Auto) 0.4, Neut # (Auto) 7.5, Lymph # (Auto) 2.2, [place] # (Auto) 0.5, Eos # (Auto) 0.1, Baso # (Auto) 0.1, Sodium 134 L, Potassium 3.6, Chloride 105, Carbon Dioxide 22, Anion Gap 10.6, BUN 10, Creatinine 0.80, Estimated Creat Clear 64, Estimated GFR 92, Est GFR ( Amer) 111, Glucose 90, Calcium 8.3 L, Magnesium 1.8 D, Total Bilirubin 0.7, AST 34, ALT 35, Alkaline Phosphatase 265 H, C-Reactive Protein 87.7 H D, Total Protein 5.3 L, Albumin 2.9 L D, Globulin 2.4, Albumin/Globulin Ratio 1.2 I & O for Last 24 hours: Intake & Output 12/30/23 12/31/23 01/01/24 01/02/24 11:59 11:59 11:59 11:59 Intake Total 250 / 250 60 / 60 1290 / 1290 870 / 870 Output Total 1125 / 1275 1150 / 1150 900 / 900 1451 / 1451 Balance -875 / -1025 -1090 / -1090 390 / 390 -581 / -581 Weight 171 lb 172 lb 7 oz 182 lb 2 oz 182 lb 1.629 oz Constitutional Constitutional: no acute distress *Routine Respiratory Exam Respiratory: Absent respiratory distress *Routine Cardiovascular Exam Cardiovascular: Absent tachycardia *Routine Abdominal Exam Abdominal: Present soft and distended Progress Note: A&P Assessment and plan (1) Status post laparotomy with lysis of adhesions: Status: Acute Assessment and plan: Stable postoperative day 6. He continues to pass intermittent flatus and did have a bowel movement after suppository yesterday. He remains somewhat distended. Cautiously advance to clear liquids without carbonation Additional suppository today Remove one half of layne Increase ambulation (continue PT/OT) (2) Small bowel obstruction: Status: Acute
[2024-01-02 09:40] LABS: Erythrocyte Sedimentation Rate 54 mm/hr (0-20)
[2024-01-02] MEDS: BISACODYL 10MG SUPP 10 MG RC (09:47)
--- NOTE | 2024-01-02 10:01 | P.PN_ITS ---
Subjective *Date: 01/02/24 *Time: 10:01 Medical Exam Vital signs and Labs for Last 24 Hours: Vital Signs Temp Pulse Pulse Resp BP Pulse Ox O2 Del Method 01/02/24 08:15 Room Air 01/02/24 08:00 97.8 F 70 22 156/84 H 99 Room Air 01/02/24 06:30 74 01/02/24 06:30 70 01/02/24 06:30 93 L Room Air 01/02/24 05:00 Room Air 01/02/24 04:00 97.9 F 70 17 155/90 H 99 Room Air 01/02/24 03:00 Room Air 01/02/24 01:00 Room Air 01/02/24 00:23 74 01/02/24 00:23 74 01/02/24 00:23 95 Room Air 01/02/24 00:00 97.9 F 70 16 152/86 H 92 L Nasal Cannula 01/01/24 23:00 Room Air 01/01/24 21:00 Room Air 01/01/24 20:00 98.2 F 70 16 144/82 H 100 Nasal Cannula 01/01/24 19:55 Nasal Cannula 01/01/24 18:40 71 01/01/24 18:40 74 01/01/24 18:40 97 Nasal Cannula 01/01/24 17:38 Nasal Cannula 01/01/24 16:17 Nasal Cannula 01/01/24 15:08 97.8 F 70 21 144/83 H 98 Room Air 01/01/24 14:08 Nasal Cannula 01/01/24 12:45 Nasal Cannula 01/01/24 12:00 70 01/01/24 11:07 97.8 F 70 17 138/81 97 Nasal Cannula 01/01/24 11:01 95 H 01/01/24 11:01 87 01/01/24 11:01 95 Nasal Cannula O2 Flow Rate 01/02/24 08:15 01/02/24 08:00 01/02/24 06:30 01/02/24 06:30 01/02/24 06:30 01/02/24 05:00 01/02/24 04:00 01/02/24 03:00 01/02/24 01:00 01/02/24 00:23 01/02/24 00:23 01/02/24 00:23 01/02/24 00:00 01/01/24 23:00 01/01/24 21:00 01/01/24 20:00 01/01/24 19:55 1 01/01/24 18:40 01/01/24 18:40 01/01/24 18:40 1 01/01/24 17:38 1 01/01/24 16:17 1 01/01/24 15:08 01/01/24 14:08 1 01/01/24 12:45 1 01/01/24 12:00 01/01/24 11:07 01/01/24 11:01 01/01/24 11:01 01/01/24 11:01 1 Intake and Output 01/01/24 01/02/24 01/02/24 23:59 07:59 15:59 Intake Total 120 / 1710 200 / 200 Output Total 500 / 1201 800 / 800 Balance -380 / 509 -600 / -600 Intake: Intake, Oral Amount 120 / 560 200 / 200 Output: Output, Urine Amount 500 / 1201 800 / 800 Other: Number of Unmeasured Voids 0 0 Number of Bowel Movements 1 Weight 82.6 kg Patient Weight 01/02/24 23:59 Weight 82.6 kg Laboratory Results - last 24 hr 01/02/24 : WBC 10.4, RBC 3.55 L, Hgb 11.7 L, Hct 36.8 L, MCV 103.4 H, MCH 32.8 H , MCHC 31.7 L, RDW 15.5, Plt Count 199, MPV 8.8, Neut % (Auto) 72.2, Lymph % (Auto) 21.3, [place] % (Auto) 4.9, Eos % (Auto) 1.1, Baso % (Auto) 0.4, Neut # (Auto) 7.5, Lymph # (Auto) 2.2, [place] # (Auto) 0.5, Eos # (Auto) 0.1, Baso # (Auto) 0.1, ESR 54 H, Sodium 134 L, Potassium 3.6, Chloride 105, Carbon Dioxide 22, Anion Gap 10.6, BUN 10, Creatinine 0.80, Estimated Creat Clear 64, Estimated GFR 92, Est GFR ( Amer) 111, Glucose 90, Calcium 8.3 L, Magnesium 1.8 D, Total Bilirubin 0.7, AST 34, ALT 35, Alkaline Phosphatase 265 H, C-Reactive Protein 87.7 H D, Total Protein 5.3 L, Albumin 2.9 L D, Globulin 2.4, Albumin/Globulin Ratio 1.2 I & O for Labs for Last 24 Hours: Intake & Output 12/30/23 12/31/23 01/01/24 01/02/24 23:59 23:59 23:59 23:59 Intake Total 250 / 310 510 / 1200 1510 / 1710 200 / 200 Output Total 1425 / 1425 1050 / 1050 1101 / 1201 800 / 800 Balance -1175 / -1115 -540 / 150 409 / 509 -600 / -600 Weight 77.564 kg 78.216 kg 82.611 kg 82.6 kg The patient's infection will respond to the chosen ABx?: Yes Is the patient receiving the right drug, dose, and route?: Yes Could a more targeted ABx be ordered?: No (WBC WNL NOW, AFEBRILE, POST OP LAPAROTOMY, OSTEO OF SPINE)
--- NOTE | 2024-01-02 15:15 | PC.NURSE ---
HALF OF BRIGITTE REMOVED PER OFFBEARER SEWER PIPEMAE BRIAN, STERI STRIPS PUT IN PLACE
--- NOTE | 2024-01-02 16:32 | P.PN_ITS ---
Subjective *Date: 01/02/24 *Time: 16:32 Interval history: Advancing diet. Tolerated clears yesterday, will continue to advance today. Had a small bowel movement overnight. Afebrile. On room air. No nausea or vomiting. States he is feeling little better. Medical Exam Vital signs and Labs for Last 24 Hours: Vital Signs Temp Pulse Pulse Resp BP Pulse Ox O2 Del Method 01/02/24 16:00 97.7 F 120 H 20 159/87 H 94 L Room Air 01/02/24 15:00 Room Air 01/02/24 13:00 Room Air 01/02/24 12:00 97.9 F 117 H 24 150/69 H 01/02/24 11:15 94 H 01/02/24 11:15 104 H 01/02/24 11:15 92 L Room Air 01/02/24 11:00 Room Air 01/02/24 09:00 Room Air 01/02/24 08:15 Room Air 01/02/24 08:00 97.8 F 70 22 156/84 H 99 Room Air 01/02/24 06:30 74 01/02/24 06:30 70 01/02/24 06:30 93 L Room Air 01/02/24 05:00 Room Air 01/02/24 04:00 97.9 F 70 17 155/90 H 99 Room Air 01/02/24 03:00 Room Air 01/02/24 01:00 Room Air 01/02/24 00:23 74 01/02/24 00:23 74 01/02/24 00:23 95 Room Air 01/02/24 00:00 97.9 F 70 16 152/86 H 92 L Nasal Cannula 01/01/24 23:00 Room Air 01/01/24 21:00 Room Air 01/01/24 20:00 98.2 F 70 16 144/82 H 100 Nasal Cannula 01/01/24 19:55 Nasal Cannula 01/01/24 18:40 71 01/01/24 18:40 74 01/01/24 18:40 97 Nasal Cannula 01/01/24 17:38 Nasal Cannula O2 Flow Rate 01/02/24 16:00 01/02/24 15:00 01/02/24 13:00 01/02/24 12:00 01/02/24 11:15 01/02/24 11:15 01/02/24 11:15 01/02/24 11:00 01/02/24 09:00 01/02/24 08:15 01/02/24 08:00 01/02/24 06:30 01/02/24 06:30 01/02/24 06:30 01/02/24 05:00 01/02/24 04:00 01/02/24 03:00 01/02/24 01:00 01/02/24 00:23 01/02/24 00:23 01/02/24 00:23 01/02/24 00:00 01/01/24 23:00 01/01/24 21:00 01/01/24 20:00 01/01/24 19:55 1 01/01/24 18:40 01/01/24 18:40 01/01/24 18:40 1 01/01/24 17:38 1 Intake and Output 01/02/24 01/02/24 01/02/24 07:59 15:59 23:59 Intake Total 200 / 470 270 / 470 Output Total 800 / 1100 300 / 1100 Balance -600 / -630 270 / -630 -300 / -630 Intake: Intake, Oral Amount 200 / 470 270 / 470 Output: Output, Urine Amount 800 / 1100 300 / 1100 Other: Number of Unmeasured Voids 0 1 Weight 82.6 kg Patient Weight 01/02/24 23:59 Weight 82.6 kg Laboratory Results - last 24 hr 01/02/24 : WBC 10.4, RBC 3.55 L, Hgb 11.7 L, Hct 36.8 L, MCV 103.4 H, MCH 32.8 H , MCHC 31.7 L, RDW 15.5, Plt Count 199, MPV 8.8, Neut % (Auto) 72.2, Lymph % (Auto) 21.3, [place] % (Auto) 4.9, Eos % (Auto) 1.1, Baso % (Auto) 0.4, Neut # (Auto) 7.5, Lymph # (Auto) 2.2, [place] # (Auto) 0.5, Eos # (Auto) 0.1, Baso # (Auto) 0.1, ESR 54 H, Sodium 134 L, Potassium 3.6, Chloride 105, Carbon Dioxide 22, Anion Gap 10.6, BUN 10, Creatinine 0.80, Estimated Creat Clear 64, Estimated GFR 92, Est GFR ( Amer) 111, Glucose 90, Calcium 8.3 L, Magnesium 1.8 D, Total Bilirubin 0.7, AST 34, ALT 35, Alkaline Phosphatase 265 H, C-Reactive Protein 87.7 H D, Total Protein 5.3 L, Albumin 2.9 L D, Globulin 2.4, Albumin/Globulin Ratio 1.2 I & O for Labs for Last 24 Hours: Intake & Output 12/30/23 12/31/23 01/01/24 01/02/24 23:59 23:59 23:59 23:59 Intake Total 250 / 310 510 / 1200 1510 / 1710 470 / 470 Output Total 1425 / 1425 1050 / 1050 1101 / 1201 1100 / 1100 Balance -1175 / -1115 -540 / 150 409 / 509 -630 / -630 Weight 77.564 kg 78.216 kg 82.611 kg 82.6 kg Constitutional: Present no acute distress, average body habitus, chronically ill appearing and cooperative Head: Present atraumatic and normocephalic ENT: Present normal exam Respiratory: Present normal respiratory effort; Absent rhonchi, wheezes or crackles Cardiac: Present Reg Rate and Rhythm GI: Present soft, distention, tenderness (Mild, interval improvement) and normal bowel sounds; Absent guarding or rebound Rectal (male): Present deferred (male): Present deferred Extremities: Present normal inspection and full ROM Skin: Present intact; Absent erythema Neuro: Present Grossly Intact, alert, awake, oriented x 3 and moves all extremities Assessment and Plan *Assessment and plan (1) Small bowel obstruction: Status: Acute Category: Medical Code(s): K56.609 - Unspecified intestinal obstruction, unspecified as to partial versus complete obstruction (2) Abdominal pain: Status: Acute Qualifiers: Abdominal location: unspecified location Qualified Code(s): R10.9 - Unspecified abdominal pain Category: Medical Code(s): R10.9 - Unspecified abdominal pain (3) Status post laparotomy with lysis of adhesions: Status: Acute Category: Surgical Code(s): Z98.890 - Other specified postprocedural states (4) Acute osteomyelitis of lumbar spine: Status: Acute Category: Medical Code(s): M46.26 - Osteomyelitis of vertebra, lumbar region (5) Hypertension: Status: Acute Qualifiers: Hypertension type: unspecified Qualified Code(s): I10 - Essential (primary) hypertension Category: Medical Code(s): I10 - Essential (primary) hypertension (6) Hyperlipidemia: Status: Acute Qualifiers: Hyperlipidemia type: unspecified Qualified Code(s): E78.5 - Hyperlipidemia, unspecified Category: Medical Code(s): E78.5 - Hyperlipidemia, unspecified (7) Hypothyroidism: Status: Chronic Qualifiers: Hypothyroidism type: acquired Qualified Code(s): E03.9 - Hypothyroidism, unspecified Category: Medical Code(s): E03.9 - Hypothyroidism, unspecified (8) COPD (chronic obstructive pulmonary disease): Status: Acute Qualifiers: COPD type: unspecified COPD Qualified Code(s): J44.9 - Chronic obstructive pulmonary disease, unspecified Category: Medical Code(s): J44.9 - Chronic obstructive pulmonary disease, unspecified (9) Biventricular ICD (implantable cardioverter-defibrillator) in place: Status: Acute Category: Surgical Code(s): Z95.810 - Presence of automatic (implantable) cardiac defibrillator Plan 83-year-old male with a 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 Findings discussed with ED. A CT scan revealed evidence of distended small bowel loops and mesenteric volvulus. patient underwent OR for surgical intervention. Agreed for admission. Small bowel movement yesterday. Surgery assisting with care. Continues to require inpatient management. Problems addressed as follows: Acute abdominal pain likely secondary to SBO s/p laparotomy with lysis of adhesions Postop ileus -Discussed case with surgery this morning. Continue to encourage p.o. intake. Tolerating clears consistently. Repeat suppository today. Had 1 bowel movement yesterday that was small. Ambulate as tolerated - Only 2 doses of hydrocodone in the past 24 hours, continue every 8 hours as needed. 5 mg / 325 mg. Continue Tylenol 650 every 4 hours as needed. necessitating close monitoring for toxicity risk - Zofran for nausea as needed -Magnesium 1.8, hold on replacement -Phosphorus 2.4, monitor for need for replacement with advancement of diet. Repeat phosphorus ordered for the morning. Suspected acute OM of L-spine - Image concerning for discitis with endplate destruction. Continue vancomycin IV, resume Zosyn. Attempting to obtain records from [place]. Began treatment at the end of October. -CRP 87, ESR 54. Showing improvement. White count normal at 10. No other signs of systemic infection. Kidney function normal with BUN 10, creatinine 0.8. I have ordered repeat CBC, CMP, magnesium for the morning -Continue to monitor kidney function electrolytes due to risk of toxicity from vancomycin. Stable chronic conditions: Hypertension hyperlipidemia hypothyroidism and COPD: Synthroid 100 mcg Entresto, bisoprolol Optimize O2 saturation, oxygen as needed, currently on 2 L for sats greater 90%. 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
[2024-01-02] MEDS: ACETAMINOPHEN 325MG TAB 650 MG PO ×2 (17:36→21:00)
[2024-01-02] MEDS: PANTOPRAZOLE 40MG VIAL 40 MG IV (21:01)
[2024-01-03] VITALS (11 sets, daily range): BP systolic 113–146; BP diastolic 59–95; PULSE 61–112; RESP 16–22; TEMP 36.5–37; O2SAT 93–99; BMI 26.0
[2024-01-03] MEDS: PIPERACILLIN/TAZO 4.5 GM in 0.9 % SODIUM CHLORIDE 100 ML IV ×3 (02:03→19:25)
[2024-01-03] MEDS: VANCOMYCIN/WATER FOR INJ (PEG) 1.75 GM/350 ML PIGGYBACK IV ×2 (02:37→20:00)
[2024-01-03] MEDS: HYDROCODONE/APAP 5/325 MG TABLET 1 TAB PO ×3 (03:06→19:25)
[2024-01-03] MEDS: ACETAMINOPHEN 325MG TAB 650 MG PO ×3 (05:20→23:34)
[2024-01-03 06:23] LABS: Chloride 104 mmol/L (98-107); Potassium 3.8 mmoL/L (3.5-5.1); Sodium 134 mmol/L (136-145)
[2024-01-03 06:26] LABS: Alanine Aminotransferase 29 U/L (12-78); Albumin Level 2.8 g/dl (3.5-5.0); Albumin/Globulin Ratio 1.1 (1.1-1.8); Alkaline Phosphatase 259 U/L (38-126); Anion Gap 9.8 mEq/L (5-15); Aspartate Amino Transferase 29 U/L (17-59); Bilirubin,Total 0.6 mg/dl (0.2-1.3); Blood Urea Nitrogen 9 mg/dl (9-20); Carbon Dioxide 24 mmol/L (22.0-30.0); Creatinine Clearance Estimated 64 mL/min (50-200); Estimated Glomerular Filt Rate 92 ml/min (>60); GFR (African American) 111 ML/MIN (>60); Globulin 2.5 g/dL (1.3-3.2); Total Protein,Serum 5.3 g/dl (6.3-8.2)
[2024-01-03 06:27] LABS: Calcium 8.5 mg/dl (8.4-10.2); Glucose 84 mg/dl (74-100)
[2024-01-03] MEDS: FLUTICASONE/UMECLIDIN/VILANTER 100/62.5/25MCG INHALER 1 PUFF IH (06:42)
[2024-01-03] MEDS: IPRATROPIUM/ALBUTEROL 3 ML NEB IH ×4 (06:43→23:19)
--- NOTE | 2024-01-03 07:25 | EXP.ACUTE.PN ---
Subjective *Date: 01/03/24 *Time: 15:22 Interval history: Stable on room air. Continues to pass gas. No bowel movement overnight. Tolerating clear liquids, advancing to full liquids today. Afebrile. No nausea or vomiting. Still having some mild back pain. Medical Exam Vital signs and Labs for Last 24 Hours: Vital Signs Temp Pulse Pulse Resp BP Pulse Ox O2 Del Method 01/03/24 06:49 Room Air 01/03/24 06:40 104 H 01/03/24 06:40 112 H 01/03/24 06:40 93 L Room Air 01/03/24 05:00 Room Air 01/03/24 04:00 97.9 F 98 H 16 146/94 H 95 Room Air 01/03/24 03:00 Room Air 01/03/24 01:00 Room Air 01/03/24 00:00 98.4 F 80 17 135/95 H 96 Room Air 01/02/24 23:38 83 01/02/24 23:37 93 H 01/02/24 23:00 Room Air 01/02/24 21:00 Room Air 01/02/24 20:00 97.9 F 70 16 156/82 H 97 Room Air 01/02/24 19:46 88 01/02/24 19:46 Room Air 01/02/24 19:45 92 H 01/02/24 18:45 Room Air 01/02/24 17:00 Room Air 01/02/24 16:00 97.7 F 120 H 20 159/87 H 94 L Room Air 01/02/24 15:00 Room Air 01/02/24 13:00 Room Air 01/02/24 12:00 97.9 F 117 H 24 150/69 H 01/02/24 11:15 94 H 01/02/24 11:15 104 H 01/02/24 11:15 92 L Room Air 01/02/24 11:00 Room Air 01/02/24 09:00 Room Air 01/02/24 08:15 Room Air 01/02/24 08:00 97.8 F 70 22 156/84 H 99 Room Air Intake and Output 01/02/24 01/02/24 01/03/24 15:59 23:59 07:59 Intake Total 270 / 1020 300 / 1020 250 / 250 Output Total 800 / 1900 700 / 700 Balance 270 / -880 -500 / -880 -450 / -450 Intake: Intake, Oral Amount 270 / 1020 300 / 1020 250 / 250 Output: Output, Urine Amount 800 / 1900 700 / 700 Other: Number of Voids 3 Number of Unmeasured Voids 0 0 Weight 82.6 kg Patient Weight 01/03/24 23:59 Weight 82.6 kg Laboratory Results - last 24 hr 01/02/24 : WBC 10.4, RBC 3.55 L, Hgb 11.7 L, Hct 36.8 L, MCV 103.4 H, MCH 32.8 H, MCHC 31.7 L, RDW 15.5, Plt Count 199, MPV 8.8, Neut % (Auto) 72.2, Lymph % (Auto) 21.3, [place] % (Auto) 4.9, Eos % (Auto) 1.1, Baso % (Auto) 0.4, Neut # (Auto) 7.5, Lymph # (Auto) 2.2, [place] # (Auto) 0.5, Eos # (Auto) 0.1, Baso # (Auto) 0.1, ESR 54 H, Sodium 134 L, Potassium 3.6, Chloride 105, Carbon Dioxide 22, Anion Gap 10.6, BUN 10, Creatinine 0.80, Estimated Creat Clear 64, Estimated GFR 92, Est GFR ( Amer) 111, Glucose 90, Calcium 8.3 L, Magnesium 1.8 D, Total Bilirubin 0.7, AST 34, ALT 35, Alkaline Phosphatase 265 H, C-Reactive Protein 87.7 H D, Total Protein 5.3 L, Albumin 2.9 L D, Globulin 2.4, Albumin/Globulin Ratio 1.2 01/03/24 : Sodium 134 L, Potassium 3.8, Chloride 104, Carbon Dioxide 24, Anion Gap 9.8, BUN 9, Creatinine 0.80, Estimated Creat Clear 64, Estimated GFR 92, Est GFR ( Amer) 111, Glucose 84, Calcium 8.5, Total Bilirubin 0.6, AST 29, ALT 29, Alkaline Phosphatase 259 H, Total Protein 5.3 L, Albumin 2.8 L, Globulin 2.5, Albumin/Globulin Ratio 1.1 I & O for Labs for Last 24 Hours: Intake & Output 12/31/23 01/01/24 01/02/24 01/03/24 23:59 23:59 23:59 23:59 Intake Total 510 / 1200 1510 / 1710 770 / 1020 250 / 250 Output Total 1050 / 1050 1101 / 1201 1600 / 1900 700 / 700 Balance -540 / 150 409 / 509 -830 / -880 -450 / -450 Weight 78.216 kg 82.611 kg 82.6 kg 82.6 kg Constitutional: Present no acute distress, average body habitus, chronically ill appearing and cooperative Head: Present atraumatic and normocephalic ENT: Present normal exam Respiratory: Present normal respiratory effort; Absent rhonchi, wheezes or crackles Cardiac: Present Reg Rate and Rhythm GI: Present soft, tenderness (Mild, interval improvement) and normal bowel sounds; Absent distention, guarding or rebound Rectal (male): Present deferred (male): Present deferred Extremities: Present normal inspection and full ROM Skin: Present intact; Absent erythema Neuro: Present Grossly Intact, alert, awake, oriented x 3 and moves all extremities Assessment and Plan *Assessment and plan (1) Small bowel obstruction: Status: Acute Category: Medical Code(s): K56.609 - Unspecified intestinal obstruction, unspecified as to partial versus complete obstruction (2) Abdominal pain: Status: Acute Qualifiers: Abdominal location: unspecified location Qualified Code(s): R10.9 - Unspecified abdominal pain Category: Medical Code(s): R10.9 - Unspecified abdominal pain (3) Status post laparotomy with lysis of adhesions: Status: Acute Category: Surgical Code(s): Z98.890 - Other specified postprocedural states (4) Acute osteomyelitis of lumbar spine: Status: Acute Category: Medical Code(s): M46.26 - Osteomyelitis of vertebra, lumbar region (5) Hypertension: Status: Acute Qualifiers: Hypertension type: unspecified Qualified Code(s): I10 - Essential (primary) hypertension Category: Medical Code(s): I10 - Essential (primary) hypertension (6) Hyperlipidemia: Status: Acute Qualifiers: Hyperlipidemia type: unspecified Qualified Code(s): E78.5 - Hyperlipidemia, unspecified Category: Medical Code(s): E78.5 - Hyperlipidemia, unspecified (7) Hypothyroidism: Status: Chronic Qualifiers: Hypothyroidism type: acquired Qualified Code(s): E03.9 - Hypothyroidism, unspecified Category: Medical Code(s): E03.9 - Hypothyroidism, unspecified (8) COPD (chronic obstructive pulmonary disease): Status: Acute Qualifiers: COPD type: unspecified COPD Qualified Code(s): J44.9 - Chronic obstructive pulmonary disease, unspecified Category: Medical Code(s): J44.9 - Chronic obstructive pulmonary disease, unspecified (9) Biventricular ICD (implantable cardioverter-defibrillator) in place: Status: Acute Category: Surgical Code(s): Z95.810 - Presence of automatic (implantable) cardiac defibrillator Plan 83-year-old male with a 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 Findings discussed with ED. A CT scan revealed evidence of distended small bowel loops and mesenteric volvulus. patient underwent OR for surgical intervention. Agreed for admission. No bowel movement since yesterday. Surgery assisting with care. Continues to require inpatient management. Problems addressed as follows: Acute abdominal pain likely secondary to SBO s/p laparotomy with lysis of adhesions Postop ileus -Discussed case with surgery this morning. Continue to encourage p.o. intake. Advance to full liquid today. Ambulate as tolerated - Only 2 doses of hydrocodone in the past 24 hours, continue every 8 hours as needed. 5 mg / 325 mg. Continue Tylenol 650 every 4 hours as needed. necessitating close monitoring for toxicity risk - Zofran for nausea as needed - White cell count normal at 10.4, potassium normal at 3.8, kidney function normal BUN 9, creatinine 0.8, -I have ordered repeat CBC, CMP, magnesium, phosphorus for the morning. Suspected acute OM of L-spine - Image concerning for discitis with endplate destruction. Continue vancomycin IV, resume Zosyn. Attempting to obtain records from [place]. Began treatment at the end of October. -Alkaline phosphatase elevated at 259. No other signs of systemic infection. -Continue to monitor kidney function electrolytes due to risk of toxicity from vancomycin. Stable chronic conditions: Hypertension hyperlipidemia hypothyroidism and COPD: Synthroid 100 mcg Entresto, bisoprolol Optimize O2 saturation, oxygen as needed, currently on 2 L for sats greater 90%. 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
[2024-01-03] MEDS: ENOXAPARIN 40MG/0.4ML SYRINGE 40 MG SQ (08:17)
[2024-01-03] MEDS: POTASSIUM CHLORIDE 20MEQ TAB 20 MEQ PO ×3 (08:18→20:00)
--- NOTE | 2024-01-03 09:06 | EXP.SURG.PN ---
Subjective Patient reports: flatus Exam Data for Last 24 hours Vital signs and Labs for Last 24 Hours: Temp Pulse Resp BP Pulse Ox O2 Del Method O2 Flow Rate 97.9 F 65 20 146/78 H 96 Room Air 1 01/03/24 07:39 01/03/24 07:39 01/03/24 07:39 01/03/24 07:39 01/03/24 07:39 01/03/24 07:39 01/01/24 19:55 FiO2 28 12/29/23 19:46 Laboratory Results - last 24 hr 01/02/24 : ESR 54 H 01/03/24 : Sodium 134 L, Potassium 3.8, Chloride 104, Carbon Dioxide 24, Anion Gap 9.8, BUN 9, Creatinine 0.80, Estimated Creat Clear 64, Estimated GFR 92, Est GFR ( Amer) 111, Glucose 84, Calcium 8.5, Total Bilirubin 0.6, AST 29, ALT 29, Alkaline Phosphatase 259 H, Total Protein 5.3 L, Albumin 2.8 L, Globulin 2.5, Albumin/Globulin Ratio 1.1 I & O for Last 24 hours: Intake & Output 12/31/23 01/01/24 01/02/24 01/03/24 11:59 11:59 11:59 11:59 Intake Total 60 / 60 1290 / 1290 870 / 870 1060 / 1060 Output Total 1150 / 1150 900 / 900 1451 / 1451 1500 / 1500 Balance -1090 / -1090 390 / 390 -581 / -581 -440 / -440 Weight 172 lb 7 oz 182 lb 2 oz 182 lb 1.629 oz 182 lb 1.629 oz Constitutional Constitutional: no acute distress *Routine Respiratory Exam Respiratory: Absent respiratory distress *Routine Cardiovascular Exam Cardiovascular: Absent tachycardia *Routine Abdominal Exam Abdominal: Present soft and distended (Persistent mild distention) Comments: Incision healing without evidence of infection Progress Note: A&P Assessment and plan (1) Status post laparotomy with lysis of adhesions: Status: Acute Assessment and plan: Stable postoperative day 7. He continues to pass intermittent flatus. He remains mildly distended. Full liquid diet Continue incentive spirometer Continue to increase ambulation (continue PT/OT) Continue overall management as per primary service (2) Small bowel obstruction: Status: Acute
[2024-01-03 12:57] LABS: Microscopic, Urine URINE MICROSCOPIC (MICROSCOPIC)
[2024-01-03 13:05] LABS: Appearance,Urine CLEAR (Clear); Bilirubin,Urine Negative (Negative); Blood, Urine Negative (Negative); Color,Urine YELLOW (Yellow); Glucose,Urine (UA) Negative (Negative); Ketones,Urine TRACE (Negative); Leukocyte Esterase,Urine Negative (Negative); Nitrate,Urine Negative (Negative); Protein,Urine Negative (Negative); Specific Gravity, Urine 1.015 (1.005-1.030); Urobilinogen,Urine 0.2 EU/dl (0.2)
[2024-01-03 14:05] LABS: Bacteria,Urine 1+ /lpf
[2024-01-03 14:06] LABS: Yeast,Urine 2+ /lpf
--- NOTE | 2024-01-03 17:23 | PC.NURSE ---
Pt has done well today. Has tolerated a full liquid diet well with no nausea. he does state that he does not have much of an appetite. PRN pain meds given per MAR. Pt has been up to the [facility] most of the day and has ambulated with x1 assist well.
[2024-01-03 19:26] LABS: Vancomycin,Trough 17.2 ug/mL (5.0-10.0)
[2024-01-03] MEDS: SODIUM CHLORIDE 0.9% 10ML VIAL 10 ML IV (20:00)
[2024-01-03] MEDS: PANTOPRAZOLE 40MG VIAL 40 MG IV (20:00)
[2024-01-04] VITALS (9 sets, daily range): BP systolic 109–145; BP diastolic 53–87; PULSE 52–115; RESP 16–22; TEMP 36.6–37.1; O2SAT 93–99; BMI 26.0
--- NOTE | 2024-01-04 00:43 | XR_ITS ---
PROCEDURE INFORMATION: Exam: XR Abdomen Exam date and time: 01/04/2024 1:01 AM Age: 83 years old Clinical indication: Abdominal pain; Prior surgery; Surgery date: Post-operative (0-2 days); Surgery type: Bowel obstruction; Additional info: Sudden on set of pain post surgery for bowel obst TECHNIQUE: Imaging protocol: Radiologic exam of the abdomen. Views: Frontal supine view of the abdomen. 1 View. COMPARISON: CT ABDOMEN PELVIS W CON 12/27/2023 3:36 PM FINDINGS: Tubes, catheters and devices: Multiple surgical clips are noted. Gastrointestinal tract: Distended air-filled loops of small bowel are seen in the mid abdomen these measure up to 5.7 cm. The colon appears decompressed. Bones/joints: Degenerative changes of the lumbar spine. IMPRESSION: Findings worrisome for small bowel obstruction. Consider CT for further evaluation as clinically indicated.
[2024-01-04] MEDS: MORPHINE 2MG/ML SYRINGE 2 MG IV ×4 (00:56→13:26)
--- NOTE | 2024-01-04 01:04 | EXP.PN ---
Subjective *Date: 01/04/24 *Time: 01:17 Interval history: Nurses notified me that the patient has had increased discomfort since 7 PM, the patient states has become quite severe since 11 PM. The pain is located mid abdomen holistic around the surgical incision site.. Patient noted that he has had some nausea but has not vomited. Exam Data for Last 24 hours Vital signs and Labs for Last 24 Hours: Temp Pulse Resp BP Pulse Ox O2 Del Method O2 Flow Rate 98.6 F 52 L 16 125/65 96 Nasal Cannula 2 01/03/24 19:48 01/04/24 00:56 01/04/24 00:56 01/04/24 00:56 01/04/24 00:56 01/04/24 00:56 01/03/24 23:00 FiO2 28 12/29/23 19:46 Laboratory Results - last 24 hr 01/03/24 12:52: Urine Color Yellow, Urine Appearance Clear, Urine pH 6.0, Ur Specific [place] 1.015, Urine Protein Negative, Urine Glucose (UA) Negative, Urine Ketones Trace, Urine Blood Negative, Urine Nitrate Negative, Urine Bilirubin Negative, Urine Urobilinogen 0.2, Ur Leukocyte Esterase Negative, Urine WBC 3-5, Urine Bacteria 1+, Urine Yeast 2+ 01/03/24 18:55: Vancomycin Trough 17.2 H 01/03/24 : Sodium 134 L, Potassium 3.8, Chloride 104, Carbon Dioxide 24, Anion Gap 9.8, BUN 9, Creatinine 0.80, Estimated Creat Clear 64, Estimated GFR 92, Est GFR ( Amer) 111, Glucose 84, Calcium 8.5, Total Bilirubin 0.6, AST 29, ALT 29, Alkaline Phosphatase 259 H, Total Protein 5.3 L, Albumin 2.8 L, Globulin 2.5, Albumin/Globulin Ratio 1.1 I & O for Last 24 hours: Intake & Output 01/01/24 01/02/24 01/03/24 01/04/24 23:59 23:59 23:59 23:59 Intake Total 1510 / 1710 770 / 1020 1200 / 1790 590 / 590 Output Total 1101 / 1201 1600 / 1900 900 / 900 Balance 409 / 509 -830 / -880 300 / 890 590 / 590 Weight 82.611 kg 82.6 kg 82.6 kg Constitutional Constitutional: moderate distress Comments: Patient's pain is quite significant depending on if he is moving or if he is being pressed upon. Patient was able to get out of bed walk to the bathroom but unable to have a bowel movement or pass really any gas. On returning to the bed was having some nausea but did not vomit *Routine Cardiovascular Exam Cardiovascular: Present irregular rhythm *Routine Abdominal Exam Abdominal: Present tenderness, distended and guarding Comments: On examining the abdomen just mild palpation was quite significant toe causing pain around the surgical incision site., The entire abdomen itself is quite rounded. But surgical layne are still in place no drainage. Assessment and Plan *Assessment and plan (1) Abdominal pain: Start date: 01/03/24 Start time: 01:17 Problem Comment: Pain slowly increasing since about 7 PM Status: Acute Qualifiers: Abdominal location: periumbilical Qualified Code(s): R10.33 - Periumbilical pain Category: Medical Code(s): R10.9 - Unspecified abdominal pain Plan 1. Increasing abdominal pain with nausea: the patient's symptoms have started to increase. He has been on clear liquids and passing gas but has not had a bowel movement since surgery . KUB has been ordered and has returned.. Examining the film myself find several dilated loops of small bowel. No stool is seen. Patient is stable at this time pain medication has been ordered. Waiting for written report to return on the KUB. Depending on those findings may order CT scan tonight versus waiting until the a.m. having his surgeon see him to see if a CAT scan with contrast is needed. Will continue to monitor the patient for any changes.
[2024-01-04] MEDS: PIPERACILLIN/TAZO 4.5 GM in 0.9 % SODIUM CHLORIDE 100 ML IV ×3 (02:46→18:23)
--- NOTE | 2024-01-04 04:25 | PC.NURSE ---
Patient did not have a good night. When RN came on shift patient was in a lot of pain was medicated per mar. Medication did help some but not alot. Patient was repositioned from the chair to the bed and did have relief for some time. Around 11:00 patient pain came back. It was described as cramping in nature. Tylenol was give. Again patient had some relief but at midnight was awoken in severe pain and screaming out and became nausea. RN assessed patient and patient did have bowel sounds and abdomen was tender to touch. RN then called provider and he came to bedside. Provider placed an order for KUD and pain medication. See KUD and provider reports. Patient did have relief of pain with administration of medication. At 4am patient had an extremely large BM that was liquid and also formed. No blood was noted. Patient did state he had a lot of relief with that and stated he felt some better. Patient has been up and down from the chair and has walked with one assisted to the bathroom. Patient has requested at times to wear oxygen 2L as he states he was SOB. Saturations have always been appropriate on room air saturations 93 and above but o2 was placed for patient comfort and taken off when going to the bathroom or sitting in the chair. No other issues this shift.
--- NOTE | 2024-01-04 04:30 | EXP.EVENT.NO ---
Was notified by nursing staff that the patient was able to go to the bathroom have a very large formed stool then also had some diarrhea when he got back to his chair. I went in to talk with the patient and his abdominal pain has improved immensely he is able to pressure on his abdomen and tells me it really does not hurt now. Plan will continue to monitor as the KUB suggested that there was an ileus hopefully this has resolved the issue.
[2024-01-04] MEDS: IPRATROPIUM/ALBUTEROL 3 ML NEB IH ×3 (06:04→23:00)
[2024-01-04] MEDS: FLUTICASONE/UMECLIDIN/VILANTER 100/62.5/25MCG INHALER 1 PUFF IH (06:04)
[2024-01-04 07:05] LABS: Magnesium 1.6 mg/dl (1.6-2.3)
[2024-01-04 07:08] LABS: Basophils # 0.1 K/mm3 (0-0.2); Basophils % 0.5 % (0.1-2.0); Eosinophils # 0.1 K/mm3 (0.0-0.4); Eosinophils % 0.7 % (0.1-12.0); Hematocrit 39.7 % (42.0-52.0); Hemoglobin 12.5 g/dL (14.1-18.0); Lymphocytes # 1.8 K/mm3 (0.7-4.5); Mean Corpuscular HGB Conc 31.4 g/dL (31.8-35.4); Mean Corpuscular Hemoglobin 32.2 pg (27.0-31.2); Mean Corpuscular Volume 102.6 fl (80-94); Mean Platelet Volume 8.6 fl (7.4-10.4); Monocytes # 0.4 K/mm3 (0.1-1.0); Neutrophils # 8.7 K/mm3 (1.8-7.8); Neutrophils % 78.8 % (37.0-80.0); Platelet Count 243 K/mm3 (142-424); Red Blood Count 3.87 M/mm3 (4.60-6.20); Red Cell Distribution Width 15.6 % (11.5-17.5)
--- NOTE | 2024-01-04 07:35 | EXP.DC.SUM ---
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 Patient seen and evaluated after exploratory laparotomy for SBO. Currently obtunded under effect of sedation. History obatained by chart review and ED documentation. Patient had acute onset of periumbilical abdominal pain with associated bilious nausea and vomiting. He denies diarrhea. He denies recent bowel movement but reports that he has passed gas. Denied chest pain shortness of breath fever chills hemoptysis hematochezia melena hematemesis hematuria. A CT scan revealed evidence of distended small bowel loops and mesenteric volvulus. patient underwent OR for surgical intervention. Admitted for further management Exam Data for Last 24 hours Vital signs and Labs for Last 24 Hours: Temp Pulse Resp BP Pulse Ox O2 Del Method O2 Flow Rate 98.6 F 83 16 109/61 L 97 Nasal Cannula 2 01/04/24 04:00 01/04/24 06:05 01/04/24 04:00 01/04/24 04:00 01/04/24 06:05 01/04/24 06:52 01/04/24 06:52 FiO2 28 12/29/23 19:46 Laboratory Results - last 24 hr 01/03/24 12:52: Urine Color Yellow, Urine Appearance Clear, Urine pH 6.0, Ur Specific [place] 1.015, Urine Protein Negative, Urine Glucose (UA) Negative, Urine Ketones Trace, Urine Blood Negative, Urine Nitrate Negative, Urine Bilirubin Negative, Urine Urobilinogen 0.2, Ur Leukocyte Esterase Negative, Urine WBC 3-5, Urine Bacteria 1+, Urine Yeast 2+ 01/03/24 18:55: Vancomycin Trough 17.2 H 01/04/24 06:14: WBC 11.0 H, RBC 3.87 L, Hgb 12.5 L, Hct 39.7 L, MCV 102.6 H, MCH 32.2 H, MCHC 31.4 L, RDW 15.6, Plt Count 243, MPV 8.6, Neut % (Auto) 78.8, Lymph % (Auto) 16.0, [place] % (Auto) 4.0, Eos % (Auto) 0.7, Baso % (Auto) 0.5, Neut # (Auto) 8.7 H, Lymph # (Auto) 1.8, [place] # (Auto) 0.4, Eos # (Auto) 0.1, Baso # (Auto) 0.1, Phosphorus 3.0, Magnesium 1.6 D I & O for Last 24 hours: Intake & Output 01/01/24 01/02/24 01/03/24 01/04/24 23:59 23:59 23:59 23:59 Intake Total 1510 / 1710 770 / 1020 1200 / 1790 590 / 590 Output Total 1101 / 1201 1600 / 1900 900 / 900 200 / 200 Balance 409 / 509 -830 / -880 300 / 890 390 / 390 Weight 82.611 kg 82.6 kg 82.6 kg 82.6 kg Results Data Completed and Pending Labs on day of discharge: Labs from last 24 hours 01/04/24 01/03/24 01/03/24 06:14 18:55 12:52 WBC 11.0 H RBC 3.87 L Hgb 12.5 L Hct 39.7 L MCV 102.6 H MCH 32.2 H MCHC 31.4 L RDW 15.6 Plt Count 243 MPV 8.6 Neut % (Auto) 78.8 Lymph % (Auto) 16.0 [place] % (Auto) 4.0 Eos % (Auto) 0.7 Baso % (Auto) 0.5 Neut # (Auto) 8.7 H Lymph # (Auto) 1.8 [place] # (Auto) 0.4 Eos # (Auto) 0.1 Baso # (Auto) 0.1 Phosphorus 3.0 Magnesium 1.6 D Urine Color Yellow Urine Appearance Clear Urine pH 6.0 Ur Specific [place] 1.015 Urine Protein Negative Urine Glucose (UA) Negative Urine Ketones Trace Urine Blood Negative Urine Nitrate Negative Urine Bilirubin Negative Urine Urobilinogen 0.2 Ur Leukocyte Esterase Negative Urine WBC 3-5 Urine Bacteria 1+ Urine Yeast 2+ Vancomycin Trough 17.2 H DS: Diagnosis Discharge Diagnosis (1) Abdominal pain: Status: Acute Code(s): R10.9 - Unspecified abdominal pain Qualifiers: Abdominal location: periumbilical Qualified Code(s): R10.33 - Periumbilical pain Problem details: Pain slowly increasing since about 7 PM Meds Home Medications and Allergies Home Medications Medication Instructions Recorded Confirmed Type tamsulosin 0.4 mg capsule 0.4 mg PO HS 01/15/23 12/28/23 History apixaban 5 mg tablet (Eliquis) 5 mg PO BID 01/20/23 12/28/23 History allopurinol 100 mg tablet 100 mg PO DAILY 03/09/23 12/28/23 History fluticasone fur. 100 mcg-umeclid 1 inh inhalation DAILY 11/02/23 12/28/23 History 62.5 mcg-vilant 25 mcg inhalat.powder (Trelegy Ellipta) pravastatin 40 mg tablet 40 mg PO HS 11/02/23 12/28/23 History carvedilol 12.5 mg tablet 12.5 mg PO BID 12/28/23 12/28/23 History empagliflozin 10 mg tablet 10 mg PO DAILY 12/28/23 12/28/23 History gabapentin 100 mg capsule 100 mg PO BID 12/28/23 12/28/23 History levothyroxine 175 mcg tablet 175 mcg PO DAILY 12/28/23 12/28/23 History pantoprazole 40 mg tablet,delayed 40 mg PO DAILY 12/28/23 12/28/23 History release piperacillin-tazobactam 4.5 gram 4.5 g IV Q8H 12/28/23 12/28/23 History intravenous solution spironolactone 25 mg tablet 12.5 mg PO DAILY 12/28/23 12/28/23 History vancomycin 1.25 gram/250 mL in 1.25 g IV Q24H 12/28/23 12/28/23 History dextrose 5 % intravenous solution hydrocodone 5 mg-acetaminophen 325 1 tab PO Q6HP PRN Mild To Moderate 01/04/24 Rx mg tablet Pain (1-6) 3 days #12 tabs sacubitril 24 mg-valsartan 26 mg 1 tab PO BID #60 tabs 01/04/24 Rx tablet (Entresto) New Prescriptions to Start Prescriptions: hydrocodone-acetaminophen José Miguel Adams sacubitril-valsartan [Entresto] José Miguel Adams Allergies Allergy/AdvReac Type Severity Reaction Status Date / Time No Known Allergies Allergy Verified 06/24/23 10:25 Discharge Plan Disposition Patient Disposition: Xfer Intermediate Care Fac Condition: Fair Follow up Plan Follow up with: Parag Sood MD [Staff Physician] - 01/06/24 3:00 pm Prescriptions/Medication Reconciliation: New hydrocodone-acetaminophen 5-325 mg Tablet 1 tab PO Q6HP PRN (Reason: Mild To Moderate Pain (1-6)) 3 Days Qty: 12 0RF Entresto 24-26 mg tablet 1 tab PO BID Qty: 60 0RF Continued allopurinol 100 mg tablet 100 mg PO DAILY Eliquis 5 mg tablet 5 mg PO BID tamsulosin 0.4 mg Capsule 0.4 mg PO HS pravastatin 40 mg tablet 40 mg PO HS Trelegy Ellipta 100-62.5-25 mcg blister with device 1 inh INHALATION DAILY levothyroxine 175 mcg Tablet 175 mcg PO DAILY carvedilol 12.5 mg Tablet 12.5 mg PO BID Rx Instructions: must administer with a meal/food spironolactone 25 mg Tablet 12.5 mg PO DAILY piperacillin-tazobactam 4.5 gram Recon Soln 4.5 g IV Q8H pantoprazole 40 mg Tablet,Delayed Release (Dr/Ec) 40 mg PO DAILY gabapentin 100 mg Capsule 100 mg PO BID vancomycin in dextrose 5 % 1.25 gram/250 mL Solution 1.25 g IV Q24H empagliflozin 10 mg Tablet 10 mg PO DAILY Discontinued Entresto 97-103 mg tablet 1 tab PO BID Patient Comments: TAKE 1 TABLET TWICE DAILY oxycodone 15 mg Tablet 7.5 mg PO Q6HP PRN (Reason: Moderate Pain (Scale Score 5-6)) Problem Reconciliation Problems Reviewed?: Yes Patient Discharge Instructions ACTIVITY: Continue current activity and Ambulate as tolerated DIET: continue same diet and advance to your usual diet Patient Instructions: DI for Small Bowel Obstruction, DI for Exploratory Laparotomy, DI for Surgical Site Infection, Catheter-Associated Urinary Tract Infection Providers Primary Care Provider: Provider,Referral Admit Provider: Scott Yao Attending Provider: Scott Yao
[2024-01-04 07:44] LABS: Chloride 106 mmol/L (98-107)
[2024-01-04 07:45] LABS: Potassium 4.3 mmoL/L (3.5-5.1); Sodium 137 mmol/L (136-145)
[2024-01-04 07:47] LABS: Alanine Aminotransferase 30 U/L (12-78); Albumin/Globulin Ratio 1.4 (1.1-1.8); Alkaline Phosphatase 288 U/L (38-126); Anion Gap 14.3 mEq/L (5-15); Aspartate Amino Transferase 28 U/L (17-59); Bilirubin,Total 0.4 mg/dl (0.2-1.3); Blood Urea Nitrogen 13 mg/dl (9-20); Carbon Dioxide 21 mmol/L (22.0-30.0); Creatinine Clearance Estimated 64 mL/min (50-200); Estimated Glomerular Filt Rate 71 ml/min (>60); GFR (African American) 86 ML/MIN (>60); Globulin 2.2 g/dL (1.3-3.2); Glucose 118 mg/dl (74-100); Total Protein,Serum 5.2 g/dl (6.3-8.2)
[2024-01-04 07:48] LABS: Calcium 8.9 mg/dl (8.4-10.2)
--- NOTE | 2024-01-04 08:48 | P.PN_ITS ---
Subjective Narrative: Patient reportedly had very large bowel movement. However, he complains of nausea and some abdominal pain at this point. Exam Data for Last 24 hours Vital signs and Labs for Last 24 Hours: Temp Pulse Resp BP Pulse Ox O2 Del Method O2 Flow Rate 98.6 F 83 16 109/61 L 97 Nasal Cannula 2 01/04/24 04:00 01/04/24 06:05 01/04/24 04:00 01/04/24 04:00 01/04/24 06:05 01/04/24 06:52 01/04/24 06:52 FiO2 28 12/29/23 19:46 Laboratory Results - last 24 hr 01/03/24 12:52: Urine Color Yellow, Urine Appearance Clear, Urine pH 6.0, Ur Specific [place] 1.015, Urine Protein Negative, Urine Glucose (UA) Negative, Urine Ketones Trace, Urine Blood Negative, Urine Nitrate Negative, Urine Bilirubin Negative, Urine Urobilinogen 0.2, Ur Leukocyte Esterase Negative, Urine WBC 3-5, Urine Bacteria 1+, Urine Yeast 2+ 01/03/24 18:55: Vancomycin Trough 17.2 H 01/04/24 06:14: WBC 11.0 H, RBC 3.87 L, Hgb 12.5 L, Hct 39.7 L, MCV 102.6 H, MCH 32.2 H, MCHC 31.4 L, RDW 15.6, Plt Count 243, MPV 8.6, Neut % (Auto) 78.8, Lymph % (Auto) 16.0, [place] % (Auto) 4.0, Eos % (Auto) 0.7, Baso % (Auto) 0.5, Neut # (Auto) 8.7 H, Lymph # (Auto) 1.8, [place] # (Auto) 0.4, Eos # (Auto) 0.1, Baso # (Auto) 0.1, Sodium 137, Potassium 4.3, Chloride 106, Carbon Dioxide 21 L, Anion Gap 14.3, BUN 13 D, Creatinine 1.00 D, Estimated Creat Clear 64, Estimated GFR 71, Est GFR ( Amer) 86 D, Glucose 118 H D, Calcium 8.9, Phosphorus 3.0, Magnesium 1.6 D, Total Bilirubin 0.4, AST 28, ALT 30, Alkaline Phosphatase 288 H, Total Protein 5.2 L, Albumin 3.0 L, Globulin 2.2, Albumin/Globulin Ratio 1.4 I & O for Last 24 hours: Intake & Output 01/01/24 01/02/24 01/03/24 01/04/24 11:59 11:59 11:59 11:59 Intake Total 1290 / 1290 870 / 870 1060 / 1060 1300 / 1300 Output Total 900 / 900 1451 / 1451 1500 / 1700 400 / 400 Balance 390 / 390 -581 / -581 -440 / -640 900 / 900 Weight 182 lb 2 oz 182 lb 1.629 oz 182 lb 1.629 oz 182 lb 1.629 oz *Routine Abdominal Exam Abdominal: Present distended Progress Note: A&P Assessment and plan (1) Abdominal pain: Status: Acute Assessment and plan: Continue slow conservative management.
--- NOTE | 2024-01-04 08:50 | P.CONPHA_ITS ---
Pharmacy Consult Date: 01/04/24 Time: 08:50 Referring provider: DR. SWEET Reason for Consult:: VANCOMYCIN LEVEL Allergies Allergy/AdvReac Type Severity Reaction Status Date / Time No Known Allergies Allergy Verified 06/24/23 10:25 Home Medications Medication Instructions Recorded Confirmed Type tamsulosin 0.4 mg capsule 0.4 mg PO HS 01/15/23 12/28/23 History apixaban 5 mg tablet (Eliquis) 5 mg PO BID 01/20/23 12/28/23 History allopurinol 100 mg tablet 100 mg PO DAILY 03/09/23 12/28/23 History fluticasone fur. 100 mcg-umeclid 1 inh inhalation DAILY 11/02/23 12/28/23 His tory 62.5 mcg-vilant 25 mcg inhalat.powder (Trelegy Ellipta) pravastatin 40 mg tablet 40 mg PO HS 11/02/23 12/28/23 History carvedilol 12.5 mg tablet 12.5 mg PO BID 12/28/23 12/28/23 History empagliflozin 10 mg tablet 10 mg PO DAILY 12/28/23 12/28/23 History gabapentin 100 mg capsule 100 mg PO BID 12/28/23 12/28/23 History levothyroxine 175 mcg tablet 175 mcg PO DAILY 12/28/23 12/28/23 History pantoprazole 40 mg tablet,delayed 40 mg PO DAILY 12/28/23 12/28/23 History release piperacillin-tazobactam 4.5 gram 4.5 g IV Q8H 12/28/23 12/28/23 History intravenous solution spironolactone 25 mg tablet 12.5 mg PO DAILY 12/28/23 12/28/23 History vancomycin 1.25 gram/250 mL in 1.25 g IV Q24H 12/28/23 12/28/23 History dextrose 5 % intravenous solution hydrocodone 5 mg-acetaminophen 325 1 tab PO Q6HP PRN Mild To Moderate 01/04/24 Rx mg tablet Pain (1-6) 3 days #12 tabs sacubitril 24 mg-valsartan 26 mg 1 tab PO BID #60 tabs 01/04/24 Rx tablet (Entresto) New Prescriptions to Start Prescriptions: hydrocodone-acetaminophen José Miguel Sweet sacubitril-valsartan [Entresto] José Miguel Sweet Height: 1.78 m Weight: 82.6 kg Laboratory Results:: Laboratory Results - last 24 hr 01/03/24 12:52: Urine Color Yellow, Urine Appearance Clear, Urine pH 6.0, Ur Specific [place] 1.015, Urine Protein Negative, Urine Glucose (UA) Negative, Urine Ketones Trace, Urine Blood Negative, Urine Nitrate Negative, Urine Bilirubin Negative, Urine Urobilinogen 0.2, Ur Leukocyte Esterase Negative, Urine WBC 3-5, Urine Bacteria 1+, Urine Yeast 2+ 01/03/24 18:55: Vancomycin Trough 17.2 H 01/04/24 06:14: WBC 11.0 H, RBC 3.87 L, Hgb 12.5 L, Hct 39.7 L, MCV 102.6 H, MCH 32.2 H, MCHC 31.4 L, RDW 15.6, Plt Count 243, MPV 8.6, Neut % (Auto) 78.8, [place] % (Auto) 16.0, [place] % (Auto) 4.0, Eos % (Auto) 0.7, Baso % (Auto) 0.5, Neut # (Auto) 8.7 H, Lymph # (Auto) 1.8, [place] # (Auto) 0.4, Eos # (Auto) 0.1, Baso # (Auto) 0.1, Sodium 137, Potassium 4.3, Chloride 106, Carbon Dioxide 21 L, Anion Gap 14.3, BUN 13 D, Creatinine 1.00 D, Estimated Creat Clear 64, Estimated GFR 71, Est GFR ( Amer) 86 D, Glucose 118 H D, Calcium 8.9, Phosphorus 3.0, Magnesium 1.6 D, Total Bilirubin 0.4, AST 28, ALT 30, Alkaline Phosphatase 288 H, Total Protein 5.2 L, Albumin 3.0 L, Globulin 2.2, Albumin/Globulin Ratio 1.4 Medical History: Medical History (Updated 01/04/24 @ 08:48 by Isac Chatman MD) Atrial fibrillation AAA (abdominal aortic aneurysm) Sepsis Atrial fibrillation with RVR Chest pain Renal mass H/O medication noncompliance 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 RECOMMEND PATIENT CONTINUE WITH VANCOMYCIN 1750 MG Q18H DOSING AT THIS TIME.
[2024-01-04] MEDS: MAGNESIUM SULFATE IN WATER 2 GM/50 ML PIGGYBACK IV (09:33)
[2024-01-04] MEDS: SACUBITRIL/VALSARTAN 24-26MG TABLET 1 EACH PO ×2 (11:44→20:39)
[2024-01-04] MEDS: GABAPENTIN 100MG CAPSULE 100 MG PO ×2 (11:44→20:38)
[2024-01-04] MEDS: LEVOTHYROXINE 175MCG (0.175MG) TAB 175 MCG PO (11:44)
[2024-01-04] MEDS: APIXABAN 5MG TABLET 5 MG PO ×2 (11:44→20:38)
[2024-01-04] MEDS: ONDANSETRON 4MG/2ML VIAL 4 MG IV (11:53)
[2024-01-04] MEDS: VANCOMYCIN/WATER FOR INJ (PEG) 1.75 GM/350 ML PIGGYBACK IV (14:59)
--- NOTE | 2024-01-04 17:23 | PC.NURSE ---
PT HAS TOLERATED ROOM AIR FOR MOST OF SHIFT TODAY. DR MARTINEZ WAS CONTACTED REGARDING AN EPISODE OF 600CC GREEN EMESIS. PT HAS NOT BEEN NAUSEOUS SINCE THEN. DIET CHANGES TO SIPS AND CHIPS PER V/O FROM DR MARTINEZ. HAS SAT UP TO CHAIR AT TIMES THIS SHIFT AND TOLERATED WELL.
[2024-01-04] MEDS: HYDROCODONE/APAP 5/325 MG TABLET 1 TAB PO (20:38)
[2024-01-04] MEDS: POTASSIUM CHLORIDE 20MEQ TAB 20 MEQ PO (20:38)
[2024-01-04] MEDS: PANTOPRAZOLE 40MG VIAL 40 MG IV (20:38)
--- NOTE | 2024-01-04 21:32 | P.PN_ITS ---
Subjective *Date: 01/04/24 *Time: 21:32 Interval history: Patient had episode overnight of abdominal pain. Had a large formed bowel movement followed by large loose bowel movement. [place] better thereafter. Still having some nausea this morning. Denies any fever, shortness of breath, chest pain. Medical Exam Vital signs and Labs for Last 24 Hours: Vital Signs Temp Pulse Pulse Resp BP Pulse Ox O2 Del Method 01/04/24 20:00 98.0 F 115 H 16 116/67 93 L Room Air 01/04/24 18:17 Room Air 01/04/24 18:05 80 01/04/24 18:05 80 01/04/24 18:05 98 Room Air 01/04/24 17:00 Room Air 01/04/24 16:00 98 F 75 20 111/53 L 95 Room Air 01/04/24 15:00 Room Air 01/04/24 13:00 Room Air 01/04/24 12:00 98.1 F 77 22 132/81 96 Room Air 01/04/24 11:00 Room Air 01/04/24 09:00 Room Air 01/04/24 08:00 Room Air 01/04/24 08:00 98.7 F 96 H 20 145/87 H 99 Nasal Cannula 01/04/24 06:52 Nasal Cannula 01/04/24 06:05 83 01/04/24 06:05 86 01/04/24 06:05 97 Nasal Cannula 01/04/24 04:51 Nasal Cannula 01/04/24 04:00 98.6 F 57 L 16 109/61 L 97 Nasal Cannula 01/04/24 03:00 Room Air 01/04/24 01:00 Room Air 01/04/24 00:56 52 L 16 125/65 96 Nasal Cannula 01/03/24 23:44 77 01/03/24 23:44 74 01/03/24 23:00 Nasal Cannula O2 Flow Rate 01/04/24 20:00 0 01/04/24 18:17 01/04/24 18:05 01/04/24 18:05 01/04/24 18:05 01/04/24 17:00 01/04/24 16:00 01/04/24 15:00 01/04/24 13:00 01/04/24 12:00 01/04/24 11:00 01/04/24 09:00 01/04/24 08:00 01/04/24 08:00 2 01/04/24 06:52 2 01/04/24 06:05 01/04/24 06:05 01/04/24 06:05 2 01/04/24 04:51 2 01/04/24 04:00 2 01/04/24 03:00 01/04/24 01:00 01/04/24 00:56 01/03/24 23:44 01/03/24 23:44 01/03/24 23:00 2 Intake and Output 01/04/24 01/04/24 01/04/24 07:59 15:59 23:59 Intake Total 590 / 1100 160 / 1100 350 / 1100 Output Total 200 / 400 100 / 400 100 / 400 Balance 390 / 700 60 / 700 250 / 700 Intake: Intake, Oral Amount 240 / 400 160 / 400 Intake, Total IV Amount 350 / 350 Vancomycin/Water For Inj (Peg) 350 / 350 1.75 gm In 350 ml @ 175 mls/hr IV Q18H [facility] Rx#:[id number] Infusion Intake 350 / 350 Vancomycin/Water For Inj (Peg) 350 / 350 1.75 gm In 350 ml @ 175 mls/hr IV Q18H [facility] Rx#:[id number] Output: Output, Urine Amount 200 / 400 100 / 400 100 / 400 Other: Number of Unmeasured Voids 0 0 0 Number of Bowel Movements 1 1 Weight 82.6 kg 82.6 kg Patient Weight 01/04/24 23:59 Weight 82.6 kg Laboratory Results - last 24 hr 01/04/24 06:14: WBC 11.0 H, RBC 3.87 L, Hgb 12.5 L, Hct 39.7 L, MCV 102.6 H, MCH 32.2 H, MCHC 31.4 L, RDW 15.6, Plt Count 243, MPV 8.6, Neut % (Auto) 78.8, Lymph % (Auto) 16.0, [place] % (Auto) 4.0, Eos % (Auto) 0.7, Baso % (Auto) 0.5, Neut # (Auto) 8.7 H, Lymph # (Auto) 1.8, [place] # (Auto) 0.4, Eos # (Auto) 0.1, Baso # (Auto) 0.1, Sodium 137, Potassium 4.3, Chloride 106, Carbon Dioxide 21 L, Anion Gap 14.3, BUN 13 D, Creatinine 1.00 D, Estimated Creat Clear 64, Estimated GFR 71, Est GFR ( Amer) 86 D, Glucose 118 H D, Calcium 8.9, Phosphorus 3.0, Magnesium 1.6 D, Total Bilirubin 0.4, AST 28, ALT 30, Alkaline Phosphatase 288 H, Total Protein 5.2 L, Albumin 3.0 L, Globulin 2.2, Albumin/Globulin Ratio 1.4 I & O for Labs for Last 24 Hours: Intake & Output 01/01/24 01/02/24 01/03/24 01/04/24 23:59 23:59 23:59 23:59 Intake Total 1510 / 1710 770 / 1020 1200 / 1790 1100 / 1100 Output Total 1101 / 1201 1600 / 1900 900 / 900 400 / 400 Balance 409 / 509 -830 / -880 300 / 890 700 / 700 Weight 82.611 kg 82.6 kg 82.6 kg 82.6 kg Constitutional: Present no acute distress, average body habitus, chronically ill appearing and cooperative Head: Present atraumatic and normocephalic ENT: Present normal exam Respiratory: Present normal respiratory effort; Absent rhonchi, wheezes or crackles Cardiac: Present Reg Rate and Rhythm GI: Present soft, distention (mild), tenderness (Mild, interval improvement) and normal bowel sounds; Absent guarding or rebound Rectal (male): Present deferred (male): Present deferred Extremities: Present normal inspection and full ROM Skin: Present intact; Absent erythema Neuro: Present Grossly Intact, alert, awake, oriented x 3 and moves all extremities Assessment and Plan *Assessment and plan (1) Small bowel obstruction: Status: Acute Category: Medical Code(s): K56.609 - Unspecified intestinal obstruction, unspecified as to partial versus complete obstruction (2) Abdominal pain: Status: Acute Qualifiers: Abdominal location: periumbilical Qualified Code(s): R10.33 - Periumbilical pain Category: Medical Code(s): R10.9 - Unspecified abdominal pain (3) Status post laparotomy with lysis of adhesions: Status: Acute Category: Surgical Code(s): Z98.890 - Other specified postprocedural states (4) Acute osteomyelitis of lumbar spine: Status: Acute Category: Medical Code(s): M46.26 - Osteomyelitis of vertebra, lumbar region (5) Hypertension: Status: Acute Qualifiers: Hypertension type: unspecified Qualified Code(s): I10 - Essential (primary) hypertension Category: Medical Code(s): I10 - Essential (primary) hypertension (6) Hyperlipidemia: Status: Acute Qualifiers: Hyperlipidemia type: unspecified Qualified Code(s): E78.5 - H yperlipidemia, unspecified Category: Medical Code(s): E78.5 - Hyperlipidemia, unspecified (7) Hypothyroidism: Status: Chronic Qualifiers: Hypothyroidism type: acquired Qualified Code(s): E03.9 - Hypothyroidism, unspecified Category: Medical Code(s): E03.9 - Hypothyroidism, unspecified (8) COPD (chronic obstructive pulmonary disease): Status: Acute Qualifiers: COPD type: unspecified COPD Qualified Code(s): J44.9 - Chronic obstructive pulmonary disease, unspecified Category: Medical Code(s): J44.9 - Chronic obstructive pulmonary disease, unspecified (9) Biventricular ICD (implantable cardioverter-defibrillator) in place: Status: Acute Category: Surgical Code(s): Z95.810 - Presence of automatic (implantable) cardiac defibrillator Plan 83-year-old male with a 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 Findings discussed with ED. A CT scan revealed evidence of distended small bowel loops and mesenteric volvulus. patient underwent OR for surgical intervention. Agreed for admission. Bowel movement last night followed by loose bowel movement. Having some increased abdominal discomfort today but better than last night. Still nauseous but no jean-claude emesis. Has been tolerating full liquid diet at this point. Wants to continue to try full liquids today. Will monitor for 1 more day. Anticipate discharge tomorrow. Problems addressed as follows: Acute abdominal pain likely secondary to SBO s/p laparotomy with lysis of adhesions Postop ileus - Discussed case with surgery this morning. Continue p.o. intake. Due to nausea, will monitor 1 more day. Ambulate as tolerated - Only 2 doses of hydrocodone in the past 24 hours, continue every 8 hours as needed. 5 mg/325 mg. Continue Tylenol 650 every 4 hours as needed. necessitating close monitoring for toxicity risk - Zofran for nausea as needed - White cell count normal at 11 -I have ordered repeat CBC, CMP, magnesium, phosphorus for the morning. Suspected acute OM of L-spine - Image concerning for discitis with endplate destruction. Continue vancomycin IV, resume Zosyn. Attempting to obtain records from [place]. Began treatment at the end of October. Due to complete course on 01/09 -Continue to monitor kidney function electrolytes due to risk of toxicity from vancomycin. Stable chronic conditions: Hypertension hyperlipidemia hypothyroidism and COPD: Synthroid 100 mcg Entresto, bisoprolol Optimize O2 saturation, oxygen as needed, currently on 2 L for sats greater 90%. -Biventricular ICD in place: Continue library monitor Monitor for chest pain and arrhythmia on lovenox for DVT ppx On Protonix for GI bleed protection Full code FULL LIQUID
[2024-01-05] VITALS (9 sets, daily range): BP systolic 90–132; BP diastolic 49–74; PULSE 64–111; RESP 16–17; TEMP 36.5–36.6; O2SAT 93–98; BMI 23.1
[2024-01-05] MEDS: PIPERACILLIN/TAZO 4.5 GM in 0.9 % SODIUM CHLORIDE 100 ML IV ×3 (02:46→18:26)
[2024-01-05] MEDS: LEVOTHYROXINE 175MCG (0.175MG) TAB 175 MCG PO (06:20)
--- NOTE | 2024-01-05 06:53 | EXP.SURG.PN ---
Subjective Narrative: The patient states he feels fine right now . He reports 2 very large bowel movements yesterday morning and immediate relief of abdominal discomfort. However, he did experience an episode of emesis yesterday afternoon and his diet was decreased. He states that he was not nauseous and that things just came up . He claims that he continues to pass some gas . Exam Data for Last 24 hours Vital signs and Labs for Last 24 Hours: Temp Pulse Resp BP Pulse Ox O2 Del Method O2 Flow Rate 97.9 F 111 H 16 107/50 L 93 L Room Air 0 01/05/24 04:00 01/05/24 04:00 01/05/24 04:00 01/05/24 04:00 01/05/24 04:00 01/05/24 05:00 01/04/24 20:00 FiO2 28 12/29/23 19:46 Laboratory Results - last 24 hr 01/04/24 06:14: WBC 11.0 H, RBC 3.87 L, Hgb 12.5 L, Hct 39.7 L, MCV 102.6 H, MCH 32.2 H, MCHC 31.4 L, RDW 15.6, Plt Count 243, MPV 8.6, Neut % (Auto) 78.8, Lymph % (Auto) 16.0, [place] % (Auto) 4.0, Eos % (Auto) 0.7, Baso % (Auto) 0.5, Neut # (Auto) 8.7 H, Lymph # (Auto) 1.8, [place] # (Auto) 0.4, Eos # (Auto) 0.1, Baso # (Auto) 0.1, Sodium 137, Potassium 4.3, Chloride 106, Carbon Dioxide 21 L, Anion Gap 14.3, BUN 13 D, Creatinine 1.00 D, Estimated Creat Clear 64, Estimated GFR 71, Est GFR ( Amer) 86 D, Glucose 118 H D, Calcium 8.9, Phosphorus 3.0, Magnesium 1.6 D, Total Bilirubin 0.4, AST 28, ALT 30, Alkaline Phosphatase 288 H, Total Protein 5.2 L, Albumin 3.0 L, Globulin 2.2, Albumin/Globulin Ratio 1.4 I & O for Last 24 hours: Intake & Output 01/02/24 01/03/24 01/04/24 01/05/24 11:59 11:59 11:59 11:59 Intake Total 870 / 870 1060 / 1060 1460 / 1460 350 / 350 Output Total 1451 / 1451 1500 / 1700 500 / 500 600 / 600 Balance -581 / -581 -440 / -640 960 / 960 -250 / -250 Weight 182 lb 1.629 oz 182 lb 1.629 oz 182 lb 1.629 oz 161 lb 5 oz Constitutional Constitutional: no acute distress *Routine Respiratory Exam Respiratory: Absent respiratory distress *Routine Abdominal Exam Abdominal: Present soft Comments: Incision healing without evidence of infection. He remains somewhat distended. Postoperative tenderness to palpation essentially unchanged. Progress Note: A&P Assessment and plan (1) Status post laparotomy with lysis of adhesions: Status: Acute Assessment and plan: Postoperative day 9. He continues to pass intermittent flatus and reports 2 large bowel movements yesterday morning; however, an episode of large emesis yesterday afternoon noted.. He remains somewhat distended. Now off narcotics (continue serial exams) Extremely cautious with any diet advancement Continue to avoid carbonation Continue incentive spirometer Continue to increase ambulation (continue PT/OT) Continue overall management as per primary service (2) Postoperative ileus: Status: Acute Assessment and plan: Fairly profound/extended postoperative ileus. He is now off narcotics. (See #1 above)
--- NOTE | 2024-01-05 07:25 | PC.NURSE ---
abd round, soft, positive bowel sounds, no n/v. vss, small amt of stool
[2024-01-05] MEDS: VANCOMYCIN/WATER FOR INJ (PEG) 1.75 GM/350 ML PIGGYBACK IV (08:40)
[2024-01-05] MEDS: GABAPENTIN 100MG CAPSULE 100 MG PO ×2 (08:40→22:05)
[2024-01-05] MEDS: SACUBITRIL/VALSARTAN 24-26MG TABLET 1 EACH PO (08:40)
[2024-01-05] MEDS: APIXABAN 5MG TABLET 5 MG PO ×2 (08:40→21:59)
[2024-01-05] MEDS: POTASSIUM CHLORIDE 20MEQ TAB 20 MEQ PO ×2 (08:41→22:06)
[2024-01-05] MEDS: HYDROCODONE/APAP 5/325 MG TABLET 1 TAB PO ×2 (08:45→17:31)
--- NOTE | 2024-01-05 10:50 | DIET.NUTRFU ---
Addendum entered by Lara Weller RD, LD 01/05/24 11:06: nutritional needs are 1800-2000kcal and 70-75gm protein. Renal fxn WNL Original Note: Reviewed patient, his diet was downgraded secondary to green emesis yesterday. 2 large BM noted 01/03 in AM, reported he felt better after BM. Has some gas. Sx downgraded to NPO with slow diet advancement based on comfort. Reviewed weights with nursing, requested reweight-completed. Wt is down 10kg CBW is 73kg. Patient now triggers for moderate protein malnutrition secondary to protein depletion x 8 days secondary to GI sx. If diet cannot be upgraded patient would benefit from TPN therapy. Pharmacy to dose. Once diet upgraded and tolerated will eval for supplements. When ready patient will return to [facility].
[2024-01-05 11:38] LABS: Chloride 106 mmol/L (98-107); Sodium 135 mmol/L (136-145)
[2024-01-05 11:39] LABS: Potassium 3.6 mmoL/L (3.5-5.1)
[2024-01-05 11:40] LABS: Basophils % 0.3 % (0.1-2.0); Eosinophils # 0.1 K/mm3 (0.0-0.4); Eosinophils % 0.7 % (0.1-12.0); Hematocrit 33.7 % (42.0-52.0); Lymphocytes # 2.4 K/mm3 (0.7-4.5); Lymphocytes % 16.9 % (10-50); Mean Corpuscular HGB Conc 32.6 g/dL (31.8-35.4); Mean Corpuscular Volume 101.3 fl (80-94); Mean Platelet Volume 9.1 fl (7.4-10.4); Monocytes # 0.6 K/mm3 (0.1-1.0); Monocytes % 4.5 % (1.7-9.3); Neutrophils # 10.8 K/mm3 (1.8-7.8); Neutrophils % 77.7 % (37.0-80.0); Platelet Count 201 K/mm3 (142-424); Red Blood Count 3.33 M/mm3 (4.60-6.20); Red Cell Distribution Width 15.6 % (11.5-17.5); White Blood Count 13.9 K/mm3 (4.8-10.8)
[2024-01-05 11:41] LABS: Alanine Aminotransferase 21 U/L (12-78); Alkaline Phosphatase 221 U/L (38-126); Anion Gap 10.6 mEq/L (5-15); Aspartate Amino Transferase 19 U/L (17-59); Bilirubin,Total 0.4 mg/dl (0.2-1.3); Blood Urea Nitrogen 15 mg/dl (9-20); Carbon Dioxide 22 mmol/L (22.0-30.0); Creatinine Clearance Estimated 57 mL/min (50-200); Estimated Glomerular Filt Rate 80 ml/min (>60); GFR (African American) 97 ML/MIN (>60)
[2024-01-05 11:42] LABS: Albumin Level 2.5 g/dl (3.5-5.0); Albumin/Globulin Ratio 1.1 (1.1-1.8); Calcium 8.2 mg/dl (8.4-10.2); Globulin 2.3 g/dL (1.3-3.2); Glucose 80 mg/dl (74-100); Magnesium 1.7 mg/dl (1.6-2.3); Total Protein,Serum 4.8 g/dl (6.3-8.2)
[2024-01-05] MEDS: MORPHINE 2MG/ML SYRINGE 2 MG IV ×2 (14:19→21:55)
--- NOTE | 2024-01-05 16:26 | PC.NURSE ---
Aox4, up with stand by assist X 1, 90's on RA, positive bowel sounds, using urinal, walked with PT, pain med given once this shift, R BRENDA RUBIO picc SL.
--- NOTE | 2024-01-05 17:17 | P.PN_ITS ---
Subjective *Date: 01/05/24 *Time: 17:17 Interval history: seen at bedside, denied CP, SOB, has some abdominal discomfort, he is passing flatus Exam Data for Last 24 hours Vital signs and Labs for Last 24 Hours: Temp Pulse Resp BP Pulse Ox O2 Del Method O2 Flow Rate 97.9 F 70 17 132/74 94 L Room Air 0 01/05/24 16:00 01/05/24 16:00 01/05/24 16:00 01/05/24 16:00 01/05/24 16:00 01/05/24 16:43 01/04/24 20:00 FiO2 28 12/29/23 19:46 Laboratory Results - last 24 hr 01/05/24 07:02: WBC 13.9 H D, RBC 3.33 L, Hgb 11.0 L, Hct 33.7 L, MCV 101.3 H, MCH 33.0 H, MCHC 32.6, RDW 15.6, Plt Count 201, MPV 9.1, Neut % (Auto) 77.7, Lymph % (Auto) 16.9, [place] % (Auto) 4.5, Eos % (Auto) 0.7, Baso % (Auto) 0.3, Neut # (Auto) 10.8 H, Lymph # (Auto) 2.4, [place] # (Auto) 0.6, Eos # (Auto) 0.1, Baso # (Auto) 0.0, Sodium 135 L, Potassium 3.6, Chloride 106, Carbon Dioxide 22, Anion Gap 10.6, BUN 15, Creatinine 0.90, Estimated Creat Clear 57, Estimated GFR 80, Est GFR ( Amer) 97, Glucose 80, Calcium 8.2 L, Magnesium 1.7, Total Bilirubin 0.4, AST 19 D, ALT 21 D, Alkaline Phosphatase 221 H, Total Protein 4.8 L, Albumin 2.5 L D, Globulin 2.3, Albumin/Globulin Ratio 1.1 I & O for Last 24 hours: Intake & Output 01/02/24 01/03/24 01/04/24 01/05/24 23:59 23:59 23:59 23:59 Intake Total 770 / 1020 1200 / 1790 1100 / 1100 590 / 590 Output Total 1600 / 1900 900 / 900 500 / 700 625 / 625 Balance -830 / -880 300 / 890 600 / 400 -35 / -35 Weight 82.6 kg 82.6 kg 82.6 kg 73.437 kg Constitutional Constitutional: no acute distress *Routine HEENT Exam Head: Present normocephalic Eye: Present EOMI and PERRL ENT: Present mucous membranes moist *Routine Neck Exam Neck: Present supple; Absent lymphadenopathy *Routine Respiratory Exam Respiratory: Present CTA bilaterally *Routine Cardiovascular Exam Cardiovascular: Present RRR *Routine Abdominal Exam Abdominal: Present soft, normoactive bowel sounds and tenderness *Routine Extremities Exam Extremities: Absent cyanosis, clubbing or edema *Routine Skin Exam Skin: Present warm; Absent rash *Routine Neurological Exam Neurological: Present alert and oriented X3 Assessment and Plan *Assessment and plan (1) Small bowel obstruction: Status: Acute Category: Medical Code(s): K56.609 - Unspecified intestinal obstruction, unspecified as to partial versus complete obstruction (2) Abdominal pain: Status: Acute Qualifiers: Abdominal location: periumbilical Qualified Code(s): R10.33 - Periumbilical pain Category: Medical Code(s): R10.9 - Unspecified abdominal pain (3) Status post laparotomy with lysis of adhesions: Status: Acute Category: Surgical Code(s): Z98.890 - Other specified postprocedural states (4) Acute osteomyelitis of lumbar spine: Status: Acute Category: Medical Code(s): M46.26 - Osteomyelitis of vertebra, lumbar region (5) Hypertension: Status: Acute Qualifiers: Hypertension type: unspecified Qualified Code(s): I10 - Essential (primary) hypertension Category: Medical Code(s): I10 - Essential (primary) hypertension (6) Hyperlipidemia: Status: Acute Qualifiers: Hyperlipidemia type: unspecified Qualified Code(s): E78.5 - Hyperlipidemia, unspecified Category: Medical Code(s): E78.5 - Hyperlipidemia, unspecified (7) Hypothyroidism: Status: Chronic Qualifiers: Hypothyroidism type: acquired Qualified Code(s): E03.9 - Hy pothyroidism, unspecified Category: Medical Code(s): E03.9 - Hypothyroidism, unspecified (8) COPD (chronic obstructive pulmonary disease): Status: Acute Qualifiers: COPD type: unspecified COPD Qualified Code(s): J44.9 - Chronic obstructive pulmonary disease, unspecified Category: Medical Code(s): J44.9 - Chronic obstructive pulmonary disease, unspecified (9) Biventricular ICD (implantable cardioverter-defibrillator) in place: Status: Acute Category: Surgical Code(s): Z95.810 - Presence of automatic (implantable) cardiac defibrillator Plan 83-year-old male with a 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 Findings discussed with ED. A CT scan revealed evidence of distended small bowel loops and mesenteric volvulus. patient underwent OR for surgical intervention. Acute abdominal pain likely secondary to SBO s/p laparotomy with lysis of adhesions Postop ileus - Discussed case with surgery this morning. Continue p.o. intake. Due to nausea, will monitor 1 more day. Ambulate as tolerated - Only 2 doses of hydrocodone in the past 24 hours, continue every 8 hours as needed. 5 mg/325 mg. Continue Tylenol 650 every 4 hours as needed. necessitating close monitoring for toxicity risk - Zofran for nausea as needed - advance diet as tolerated , currently NPO per GS Suspected acute OM of L-spine - Image concerning for discitis with endplate destruction. Continue vancomycin IV, resume Zosyn. records from [place] - reviewed. Began treatment at the end of October. Due to complete course on 01/09 -Continue to monitor kidney function electrolytes due to risk of toxicity from vancomycin. Stable chronic conditions: Hypertension hyperlipidemia hypothyroidism and COPD: Synthroid 100 mcg Entresto, bisoprolol Optimize O2 saturation, oxygen as needed, currently on 2 L for sats greater 90%. 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
[2024-01-05] MEDS: IPRATROPIUM/ALBUTEROL 3 ML NEB IH ×2 (18:10→23:48)
[2024-01-05] MEDS: FLUTICASONE/UMECLIDIN/VILANTER 100/62.5/25MCG INHALER 1 PUFF IH (18:11)
[2024-01-05] MEDS: PANTOPRAZOLE 40MG VIAL 40 MG IV (22:05)
[2024-01-05] MEDS: PRAVASTATIN 40MG TAB 40 MG PO (22:06)
[2024-01-05] MEDS: TAMSULOSIN 0.4MG CAPSULE 0.400000000000000022 MG PO (22:07)
[2024-01-06] VITALS (7 sets, daily range): BP systolic 103–136; BP diastolic 59–83; PULSE 70–80; RESP 16–20; TEMP 36.4–36.6; O2SAT 94–99; BMI 23.8
[2024-01-06] MEDS: VANCOMYCIN/WATER FOR INJ (PEG) 1.75 GM/350 ML PIGGYBACK IV ×2 (01:48→21:05)
[2024-01-06] MEDS: PIPERACILLIN/TAZO 4.5 GM in 0.9 % SODIUM CHLORIDE 100 ML IV ×3 (04:08→20:04)
--- NOTE | 2024-01-06 05:39 | PC.NURSE ---
pt has tolerated sips of clears without n/v, pt reported some sharp pains to upper stomach, treated with med, effective. bp low 90'50's. lapel padder blindstitch made aware. bp has improved, a. febrile, pt reports feeling very hungry
[2024-01-06] MEDS: LEVOTHYROXINE 175MCG (0.175MG) TAB 175 MCG PO (06:53)
[2024-01-06 07:14] LABS: Chloride 107 mmol/L (98-107)
[2024-01-06 07:15] LABS: Potassium 3.5 mmoL/L (3.5-5.1); Sodium 134 mmol/L (136-145)
[2024-01-06 07:17] LABS: Alanine Aminotransferase 20 U/L (12-78); Albumin Level 2.4 g/dl (3.5-5.0); Alkaline Phosphatase 213 U/L (38-126); Aspartate Amino Transferase 26 U/L (17-59); Bilirubin,Total 0.4 mg/dl (0.2-1.3); Blood Urea Nitrogen 16 mg/dl (9-20); Creatinine Clearance Estimated 59 mL/min (50-200); Estimated Glomerular Filt Rate 92 ml/min (>60); GFR (African American) 111 ML/MIN (>60)
[2024-01-06 07:18] LABS: Anion Gap 9.5 mEq/L (5-15); Calcium 8.2 mg/dl (8.4-10.2); Carbon Dioxide 21 mmol/L (22.0-30.0); Globulin 2.4 g/dL (1.3-3.2); Glucose 88 mg/dl (74-100); Total Protein,Serum 4.8 g/dl (6.3-8.2)
--- NOTE | 2024-01-06 08:25 | EXP.SURG.PN ---
Subjective Patient reports: feels better, flatus and bowel movement Exam Data for Last 24 hours Vital signs and Labs for Last 24 Hours: Temp Pulse Resp BP Pulse Ox O2 Del Method O2 Flow Rate 97.6 F 70 16 117/67 98 Room Air 0 01/06/24 04:00 01/06/24 04:00 01/06/24 04:00 01/06/24 04:00 01/06/24 04:00 01/06/24 07:00 01/04/24 20:00 FiO2 28 12/29/23 19:46 Laboratory Results - last 24 hr 01/05/24 07:02: WBC 13.9 H D, RBC 3.33 L, Hgb 11.0 L, Hct 33.7 L, MCV 101.3 H, MCH 33.0 H, MCHC 32.6, RDW 15.6, Plt Count 201, MPV 9.1, Neut % (Auto) 77.7, Lymph % (Auto) 16.9, [place] % (Auto) 4.5, Eos % (Auto) 0.7, Baso % (Auto) 0.3, Neut # (Auto) 10.8 H, Lymph # (Auto) 2.4, [place] # (Auto) 0.6, Eos # (Auto) 0.1, Baso # (Auto) 0.0, Sodium 135 L, Potassium 3.6, Chloride 106, Carbon Dioxide 22, Anion Gap 10.6, BUN 15, Creatinine 0.90, Estimated Creat Clear 57, Estimated GFR 80, Est GFR ( Amer) 97, Glucose 80, Calcium 8.2 L, Magnesium 1.7, Total Bilirubin 0.4, AST 19 D, ALT 21 D, Alkaline Phosphatase 221 H, Total Protein 4.8 L, Albumin 2.5 L D, Globulin 2.3, Albumin/Globulin Ratio 1.1 01/06/24 : Sodium 134 L, Potassium 3.5, Chloride 107, Carbon Dioxide 21 L, Anion Gap 9.5, BUN 16, Creatinine 0.80, Estimated Creat Clear 59, Estimated GFR 92, Est GFR ( Amer) 111, Glucose 88, Calcium 8.2 L, Total Bilirubin 0.4, AST 26 D, ALT 20, Alkaline Phosphatase 213 H, Total Protein 4.8 L, Albumin 2.4 L, Globulin 2.4, Albumin/Globulin Ratio 1.0 L I & O for Last 24 hours: Intake & Output 01/03/24 01/04/24 01/05/24 01/06/24 11:59 11:59 11:59 11:59 Intake Total 1060 / 1060 1460 / 1460 700 / 700 240 / 240 Output Total 1500 / 1700 500 / 500 825 / 825 200 / 200 Balance -440 / -640 960 / 960 -125 / -125 40 / 40 Weight 182 lb 1.629 oz 182 lb 1.629 oz 161 lb 14.4 oz 166 lb 12.8 oz Constitutional Constitutional: no acute distress *Routine Respiratory Exam Respiratory: Absent respiratory distress *Routine Cardiovascular Exam Cardiovascular: Absent tachycardia *Routine Abdominal Exam Abdominal: Present soft Comments: No significant distention Progress Note: A&P Assessment and plan (1) Status post laparotomy with lysis of adhesions: Status: Acute Assessment and plan: Postoperative day 10. He currently feels better and reports increased flatus and a bowel movement yesterday. Currently with no nausea. Cautious diet advancement Continue to avoid carbonation Continue incentive spirometer Continue to increase ambulation (continue PT/OT) Continue overall management as per primary service (2) Postoperative ileus: Status: Acute Assessment and plan: Fairly profound/extended postoperative ileus. Now improving. (See #1 above) (3) Small bowel obstruction: Status: Acute
[2024-01-06] MEDS: APIXABAN 5MG TABLET 5 MG PO ×2 (08:34→21:18)
[2024-01-06] MEDS: SACUBITRIL/VALSARTAN 24-26MG TABLET 1 EACH PO ×2 (08:34→21:18)
[2024-01-06] MEDS: CARVEDILOL 12.5MG TABLET 12.5 MG PO (08:35)
[2024-01-06] MEDS: POTASSIUM CHLORIDE 20MEQ TAB 20 MEQ PO ×2 (08:35→12:18)
[2024-01-06] MEDS: GABAPENTIN 100MG CAPSULE 100 MG PO (08:35)
[2024-01-06] MEDS: SPIRONOLACTONE 25MG TABLET 12.5 MG PO (08:35)
[2024-01-06] MEDS: FLUTICASONE/UMECLIDIN/VILANTER 100/62.5/25MCG INHALER 1 PUFF IH (10:01)
[2024-01-06] MEDS: IPRATROPIUM/ALBUTEROL 3 ML NEB IH (11:10)
[2024-01-06] MEDS: MORPHINE 2MG/ML SYRINGE 2 MG IV ×2 (11:45→17:12)
--- NOTE | 2024-01-06 13:17 | PC.NURSE ---
notified MD Sood that pt tolerated his full liquid lunch well.
[2024-01-06] MEDS: CALCIUM CARBONATE 500MG CHEWTAB 500 MG PO (16:05)
--- NOTE | 2024-01-06 17:09 | P.PN_ITS ---
Subjective *Date: 01/06/24 *Time: 17:09 Interval history: seen at bedside, he is lethargic, no acute events overnight, no complains of Abdominal pain, chest pain Exam Data for Last 24 hours Vital signs and Labs for Last 24 Hours: Temp Pulse Resp BP Pulse Ox O2 Del Method O2 Flow Rate 97.7 F 70 16 134/83 99 Room Air 0 01/06/24 16:00 01/06/24 16:00 01/06/24 16:00 01/06/24 16:01/06/24 16:01/06/24 16:00 01/04/24 20:00 FiO2 28 12/29/23 19:46 Laboratory Results - last 24 hr 01/06/24 : Sodium 134 L, Potassium 3.5, Chloride 107, Carbon Dioxide 21 L, Anion Gap 9.5, BUN 16, Creatinine 0.80, Estimated Creat Clear 59, Estimated GFR 92, Es t GFR ( Amer) 111, Glucose 88, Calcium 8.2 L, Total Bilirubin 0.4, AST 26 D, ALT 20, Alkaline Phosphatase 213 H, Total Protein 4.8 L, Albumin 2.4 L, Globulin 2.4, Albumin/Globulin Ratio 1.0 L I & O for Last 24 hours: Intake & Output 01/03/24 01/04/24 01/05/24 01/06/24 23:59 23:59 23:59 23:59 Intake Total 1200 / 1790 1100 / 1100 590 / 590 1000 / 1000 Output Total 900 / 900 500 / 700 625 / 625 350 / 350 Balance 300 / 890 600 / 400 -35 / -35 650 / 650 Weight 82.6 kg 82.6 kg 73.437 kg 75.659 kg Constitutional Constitutional: no acute distress *Routine HEENT Exam Head: Present normocephalic Eye: Present EOMI and PERRL ENT: Present mucous membranes moist *Routine Neck Exam Neck: Present supple; Absent lymphadenopathy *Routine Respiratory Exam Respiratory: Present CTA bilaterally *Routine Cardiovascular Exam Cardiovascular: Present RRR *Routine Abdominal Exam Abdominal: Present soft, normoactive bowel sounds and tenderness *Routine Extremities Exam Extremities: Absent cyanosis, clubbing or edema *Routine Skin Exam Skin: Present warm; Absent rash *Routine Neurological Exam Neurological: Present alert and oriented X3 Assessment and Plan *Assessment and plan (1) Small bowel obstruction: Status: Acute Category: Medical Code(s): K56.609 - Unspecified intestinal obstruction, unspecified as to partial versus complete obstruction (2) Abdominal pain: Status: Acute Qualifiers: Abdominal location: periumbilical Qualified Code(s): R10.33 - Periumbilical pain Category: Medical Code(s): R10.9 - Unspecified abdominal pain (3) Status post laparotomy with lysis of adhesions: Status: Acute Category: Surgical Code(s): Z98.890 - Other specified postprocedural states (4) Acute osteomyelitis of lumbar spine: Status: Acute Category: Medical Code(s): M46.26 - Osteomyelitis of vertebra, lumbar region (5) Hypertension: Status: Acute Qualifiers: Hypertension type: unspecified Qualified Code(s): I10 - Essential (primary) hypertension Category: Medical Code(s): I10 - Essential (primary) hypertension (6) Hyperlipidemia: Status: Acute Qualifiers: Hyperlipidemia type: unspecified Qualified Code(s): E78.5 - Hyperlipidemia, unspecified Category: Medical Code(s): E78.5 - Hyperlipidemia, unspecified (7) Hypothyroidism: Status: Chronic Qualifiers: Hypothyroidism type: acquired Qualified Code(s): E03.9 - Hypothyroidism, unspecified Category: Medical Code(s): E03.9 - Hypothyroidism, unspecified (8) COPD (chronic obstructive pulmonary disease): Status: Acute Qualifiers: COPD type: unspecified COPD Qualified Code(s): J44.9 - Chronic obstructive pulmonary disease, unspecified Category: Medical Code(s): J44.9 - Chronic obstructive pulmonary disease, unspecified (9) Biventricular ICD (implantable cardioverter-defibrillator) in place: Status: Acute Category: Surgical Code(s): Z95.810 - Presence of automatic (implantable) cardiac defibrillator Plan 83-year-old male with a 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 Findings discussed with ED. A CT scan revealed evidence of distended small bowel loops and mesenteric volvulus. patient underwent OR for surgical intervention. Acute abdominal pain likely secondary to SBO s/p laparotomy with lysis of adhesions Postop ileus - Discussed case with surgery this morning. Continue p.o. intake. Due to nausea, will monitor 1 more day. Ambulate as tolerated Suspected acute OM of L-spine - Image concerning for discitis with endplate destruction. Continue vancomycin IV, resume Zosyn. records from [place] - reviewed. - Began treatment at the end of October. Due to complete course on 01/09 -Continue to monitor kidney function electrolytes due to risk of toxicity from vancomycin. Stable chronic conditions: Hypertension hyperlipidemia hypothyroidism and COPD: Synthroid 100 mcg Entresto, bisoprolol Optimize O2 saturation, oxygen as needed, currently on 2 L for sats greater 90%. -Biventricular ICD in place: Continue monitor technician Monitor for chest pain and arrhythmia on lovenox for DVT ppx On Protonix for GI bleed protection Full code advance diet as tolerated, GS following
--- NOTE | 2024-01-06 17:27 | PC.NURSE ---
Pt had had a good day with less pain and he stated that he felt pretty good. This afternoon around 1700 pt started c/o severe pain in his abdomen. PRN medication given. Pt states that his stomach hurts and he, can't take it . Pt did have his diet advanced today and pt stated that he at all of his lunch. Pt has also c/o of heartburn this afternoon. Called MD for orders and PRN meds given. MD Sood also notified that pt has been c/o heartburn.
[2024-01-06] MEDS: ONDANSETRON 4MG/2ML VIAL 4 MG IV (18:05)
--- NOTE | 2024-01-06 18:06 | PC.NURSE ---
pt is now vomiting 200cc of green emisis. PRN meds given
--- NOTE | 2024-01-06 18:10 | XR_ITS ---
PROCEDURE INFORMATION: Exam: XR Abdomen Exam date and time: 01/06/2024 6:28 PM Age: 83 years old Clinical indication: Abdominal pain TECHNIQUE: Imaging protocol: Radiologic exam of the abdomen. Views: Frontal supine view of the abdomen. 1 View. COMPARISON: CR XR KUB 01/04/2024 1:01 AM FINDINGS: Tubes, catheters and devices: Cardiac pacemaker partially visualized. Lungs: Lung bases are grossly clear although the left base is largely obscured by the lower sternum and costochondral calcifications. Gastrointestinal tract: Previous air distended dilated left mid abdominal small bowel loops are decreased in caliber. There is new moderate gaseous distension of the stomach, numerous small bowel loops throughout the abdomen, and throughout the colon. The pattern is felt to be more suggestive of generalized ileus than obstruction at this point, although recommend continued radiographic follow-up or CT assessment as clinically indicated. No evidence of pneumatosis or portal gas. Intraperitoneal space: No free air is evident. Organs: No evidence of organomegaly. Bones/joints: No acute osseous abnormalities. Moderate lumbar spondylosis. Soft tissues: Midline skin layne. No gross soft tissue masses. Other findings: No pathological calcifications. IMPRESSION: 1. Diffuse gaseous distension of the stomach, small bowel, and colon, with decreased dilatation of the left mid abdominal small bowel loops since the x-ray at 1:00 a.m.. The appearance favors generalized ileus at this point, although recommend continued radiographic follow-up or CT assessment if there is strong clinical suspicion for developing obstruction. 2. No gross free air.
[2024-01-06] MEDS: HYDROMORPHONE 2MG/ML SYRINGE 1 MG IV (19:54)
[2024-01-06] MEDS: PANTOPRAZOLE 40MG VIAL 40 MG IV (21:18)
--- NOTE | 2024-01-06 21:22 | PC.NURSE ---
Alexandra RODRIGUEZ APRN CONSULTED RE PATIENTS ABDOMINAL PAIN AND DISTENTION. KUB INDICATES GENERALIZED ILEUS. ORDER TO KEEP NPO AND ONLY ELIQIZ AND ENTRESTO TO RECEIVE BY MOUTH TONIGHT WITH SIP OF WATER. N/V CONTROLLED WITH ZOFRAN IV GIVEN AT 1804. RECEIVED DILAUDID 1 MG IVP AT 1953 WITH SOME RELIEF. HOB ELEVATED 35 DEGREES. ENCOURAGED TO TURN AND REPOSITION.
--- NOTE | 2024-01-06 23:11 | PC.NURSE ---
PATIENT VOMITED LARGE AMT OF LIQ BROWNISH SECRETIONS. JULIENNE Gonsalves NOTIFIED. PATIENT REFUSES TO HAVE N/G INSERTED. WILL MEDICATE ZOFRAN WHEN ORDER IN.
[2024-01-07] VITALS (7 sets, daily range): BP systolic 110–140; BP diastolic 61–92; PULSE 52–117; RESP 16–18; TEMP 36.4–36.9; O2SAT 92–96; BMI 23.1
[2024-01-07] MEDS: ONDANSETRON 4MG/2ML VIAL 4 MG IV (01:01)
[2024-01-07] MEDS: HYDROMORPHONE 2MG/ML SYRINGE 1 MG IV ×2 (01:01→19:15)
[2024-01-07] MEDS: PIPERACILLIN/TAZO 4.5 GM in 0.9 % SODIUM CHLORIDE 100 ML IV ×3 (02:28→18:38)
--- NOTE | 2024-01-07 05:09 | PC.NURSE ---
PATIENT RECEIVED ZOFRAN 4 MG IVP AT 010 AND DILAUDID 1 MG IVP AT 1953 AND 100. HAS RESTED QUIETLY SINCE APPROX 013. NO FURTHER N/V. NO FURTHER C/O PAIN. ABDOMEN REMAINS SOFT BUT DISTENDED, BOWEL SOUND X 4. REMAINS NPO TIL FURTHER NOTICE.
[2024-01-07] MEDS: IPRATROPIUM/ALBUTEROL 3 ML NEB IH ×2 (05:56→17:56)
[2024-01-07] MEDS: FLUTICASONE/UMECLIDIN/VILANTER 100/62.5/25MCG INHALER 1 PUFF IH (05:56)
--- NOTE | 2024-01-07 07:08 | FL_ITS ---
FINAL REPORT CLINICAL HISTORY: profound post op ileus vs recurrent sbo FINDINGS: Small bowel follow-through. Water-soluble contrast was administered through G-tube.. Serial overhead films were obtained. Career Services Assistant images show moderate gaseous distention of small bowel. There is some gas in the colon.. Following contrast administration to the stomach, contrast agent is noted to breech the right: Within the 1st hour of the exam. A 2 hour exam was then performed which showed further passage of contrast into the right and transverse colon. The transit time to the colon is normal . The mucosal fold pattern is normal .. IMPRESSION: No evidence of mechanical obstruction. Small bowel dilatation on dry house attendant imaging most compatible with ileus. Authenticated and ERN
--- NOTE | 2024-01-07 07:10 | EXP.SURG.PN ---
Subjective Narrative: Patient was doing significantly better yesterday and was tolerating advancement of his diet. He continued to pass flatus and had a bowel movement. Overnight he developed increasing distention followed by emesis. He states that he believes he was just eating too fast . He currently feels better . Exam Data for Last 24 hours Vital signs and Labs for Last 24 Hours: Temp Pulse Resp BP Pulse Ox O2 Del Method O2 Flow Rate 97.7 F 80 18 128/69 96 Room Air 0 01/07/24 04:00 01/07/24 05:57 01/07/24 04:00 01/07/24 04:00 01/07/24 05:57 01/07/24 06:33 01/04/24 20:00 FiO2 28 12/29/23 19:46 Laboratory Results - last 24 hr 01/06/24 : Sodium 134 L, Potassium 3.5, Chloride 107, Carbon Dioxide 21 L, Anion Gap 9.5, BUN 16, Creatinine 0.80, Estimated Creat Clear 59, Estimated GFR 92, Est GFR ( Amer) 111, Glucose 88, Calcium 8.2 L, Total Bilirubin 0.4, AST 26 D, ALT 20, Alkaline Phosphatase 213 H, Total Protein 4.8 L, Albumin 2.4 L, Globulin 2.4, Albumin/Globulin Ratio 1.0 L I & O for Last 24 hours: Intake & Output 01/04/24 01/05/24 01/06/24 01/07/24 11:59 11:59 11:59 11:59 Intake Total 1460 / 1460 700 / 700 240 / 240 1900 / 1900 Output Total 500 / 500 825 / 825 200 / 200 950 / 950 Balance 960 / 960 -125 / -125 40 / 40 950 / 950 Weight 182 lb 1.629 oz 161 lb 14.4 oz 166 lb 12.8 oz 161 lb 6.4 oz Constitutional Constitutional: no acute distress *Routine Respiratory Exam Respiratory: Absent respiratory distress *Routine Cardiovascular Exam Cardiovascular: Absent tachycardia *Routine Abdominal Exam Abdominal: Present soft Comments: Incision healing without evidence of infection. The patient's known left inguinal hernia is easily reducible. Progress Note: A&P Assessment and plan (1) Status post laparotomy with lysis of adhesions: Status: Acute Assessment and plan: Postoperative day 11. He currently feels better; however, yet again had significant emesis after meal yesterday. He is somewhat more distended. He claims continued flatus. Currently with no nausea. His known left inguinal hernia remains reducible. Small bowel follow-through ordered Continue incentive spirometer Continue to increase ambulation (continue PT/OT) Continue overall management as per primary service (2) Postoperative ileus: Status: Acute Assessment and plan: Fairly profound/extended postoperative ileus. (See #1 above)
[2024-01-07 07:12] LABS: Chloride 108 mmol/L (98-107); Potassium 3.8 mmoL/L (3.5-5.1); Sodium 136 mmol/L (136-145)
[2024-01-07 07:14] LABS: Alanine Aminotransferase 21 U/L (12-78); Aspartate Amino Transferase 25 U/L (17-59); Blood Urea Nitrogen 18 mg/dl (9-20); Creatinine Clearance Estimated 57 mL/min (50-200); Estimated Glomerular Filt Rate 107 ml/min (>60); GFR (African American) 130 ML/MIN (>60)
[2024-01-07 07:15] LABS: Albumin Level 2.7 g/dl (3.5-5.0); Albumin/Globulin Ratio 1.1 (1.1-1.8); Alkaline Phosphatase 224 U/L (38-126); Anion Gap 10.8 mEq/L (5-15); Bilirubin,Total 0.4 mg/dl (0.2-1.3); Calcium 8.6 mg/dl (8.4-10.2); Carbon Dioxide 21 mmol/L (22.0-30.0); Globulin 2.4 g/dL (1.3-3.2); Glucose 114 mg/dl (74-100); Total Protein,Serum 5.1 g/dl (6.3-8.2)
--- NOTE | 2024-01-07 08:40 | HMH.ITSTN ---
GAVE PATIENT GASTRO CONTRAST, UPON DRINKING IT HE VOMITED IT BACK UP AND STATED HE COULDN'T DRINK ANYMORE. NURSE ALYSE NOTIFIED, SAID SHE WOULD SPEAK WITH DR. ACOSTA AND SEE HOW TO PROCEED.
--- NOTE | 2024-01-07 09:16 | XR_ITS ---
FINAL REPORT CLINICAL HISTORY: NG tube placement conformation COMPARISON: 01/06/2024 FINDINGS: NG tube is coiled in the distal esophagus. The tip is retroflexed 6 cm. There is a nonspecific bowel gas pattern. No abnormal radiopacities are seen in the abdomen. IMPRESSION: NG tube as above. Reviewed, Interpreted and Dictated by Shannon Sun MD Transcribed by Mariah Sanabria Authenticated and [facility]
[2024-01-07 10:39] LABS: Basophils # 0.1 K/mm3 (0-0.2); Basophils % 0.3 % (0.1-2.0); Eosinophils % 0.3 % (0.1-12.0); Hematocrit 38.4 % (42.0-52.0); Hemoglobin 12.8 g/dL (14.1-18.0); Lymphocytes # 2.5 K/mm3 (0.7-4.5); Lymphocytes % 16.7 % (10-50); Mean Corpuscular HGB Conc 33.3 g/dL (31.8-35.4); Mean Corpuscular Hemoglobin 33.2 pg (27.0-31.2); Mean Corpuscular Volume 99.5 fl (80-94); Mean Platelet Volume 7.8 fl (7.4-10.4); Monocytes # 0.7 K/mm3 (0.1-1.0); Monocytes % 4.7 % (1.7-9.3); Neutrophils # 11.7 K/mm3 (1.8-7.8); Platelet Count 280 K/mm3 (142-424); Red Blood Count 3.86 M/mm3 (4.60-6.20); Red Cell Distribution Width 15.3 % (11.5-17.5)
[2024-01-07 10:40] LABS: MANUAL DIFFERENTIAL MANUAL DIFFERENTIAL (MANUAL DIFF)
--- NOTE | 2024-01-07 10:47 | PC.NURSE ---
16 Fr NG placed in left nare, pt tolerated well.
[2024-01-07 11:13] LABS: Lymphocytes % 13 % (10-50); Monocytes % 5 % (2-9); Neutrophils % 82 % (42-76); Platelet Estimate Normal; RBC Morphology Normal; Total Cells Counted 100
--- NOTE | 2024-01-07 11:14 | DIET.NUTRFU ---
Patient had emesis again last night, patient thinks he ate too fast. Contrast was ordered but patient could not tolerate. NG tube ordered and NPO gain. Patient has been NPO-full liquids x10 days, he is protein depleted. Pharmacy to dose TPN to help meet nutritional needs. Labs reviewed, renal labs WNL. Routine labs per TPN protocol will be ordered and reviewed. BM noted on 01/06. NaCL 500ml bag provided yesterday for hydration, Na 136. Will continue to monitor
--- NOTE | 2024-01-07 11:26 | XR_ITS ---
FINAL REPORT CLINICAL HISTORY: Adjustment of NG placement COMPARISON: 01/07/2024 FINDINGS: There has been repositioning of NG tube, now seen in good position within the gastric fundus. There is persistent large and small bowel gaseous distension. No abnormal radiopacities are seen in the abdomen. IMPRESSION: NG tube now in good position. Reviewed, Interpreted and Dictated by Shannon Sun MD Transcribed by Nancy Begum Authenticated and [facility]
[2024-01-07 11:54] LABS: INR 1.13 (0.9-1.1); Prothrombin Time 12.5 seconds (10.1-12.5)
[2024-01-07 11:55] LABS: Cholesterol 123 mg/dl (140-200); Magnesium 1.5 mg/dl (1.6-2.3); Phosphorous 2.9 mg/dl (2.5-4.5); Triglycerides 137 mg/dl (30-150)
[2024-01-07] MEDS: DIATRIZOATE MEGLUMINE(GASTROGRAFIN) 66%-10% 120ML 120 ML PO ×4 (14:35)
[2024-01-07] MEDS: FAT EMULSIONS 250 ML 60 ML IV (14:58)
--- NOTE | 2024-01-07 15:00 | PC.NURSE ---
16 [address] tube in place @ 60cm, verified placement with x-ray.
[2024-01-07] MEDS: [UNRECOGNIZED DRUG - REMARK] 75 ML IV (16:20)
[2024-01-07] MEDS: VANCOMYCIN/WATER FOR INJ (PEG) 1.75 GM/350 ML PIGGYBACK IV (16:24)
[2024-01-07 16:39] LABS: POC Glucose,Bedside 139 (70-110)
[2024-01-07] MEDS: APIXABAN 5MG TABLET 5 MG PO (21:37)
[2024-01-07] MEDS: POTASSIUM CHLORIDE 20MEQ TAB 20 MEQ PO (21:37)
[2024-01-07] MEDS: SODIUM CHLORIDE 0.9% 10ML VIAL 10 ML IV (21:37)
[2024-01-07] MEDS: PANTOPRAZOLE 40MG VIAL 40 MG IV (21:37)
[2024-01-07] MEDS: TAMSULOSIN 0.4MG CAPSULE 0.400000000000000022 MG PO (21:37)
[2024-01-07] MEDS: GABAPENTIN 100MG CAPSULE 100 MG PO (21:37)
[2024-01-07] MEDS: SACUBITRIL/VALSARTAN 24-26MG TABLET 1 EACH PO (21:37)
[2024-01-07] MEDS: CARVEDILOL 12.5MG TABLET 12.5 MG PO (21:37)
[2024-01-07] MEDS: PRAVASTATIN 40MG TAB 40 MG PO (21:38)
[2024-01-08] VITALS (9 sets, daily range): BP systolic 123–137; BP diastolic 67–88; PULSE 62–111; RESP 14–18; TEMP 36.5–37; O2SAT 91–98; BMI 22.4
[2024-01-08] MEDS: IPRATROPIUM/ALBUTEROL 3 ML NEB IH ×4 (00:09→18:29)
[2024-01-08] MEDS: PIPERACILLIN/TAZO 4.5 GM in 0.9 % SODIUM CHLORIDE 100 ML IV ×3 (03:24→18:53)
--- NOTE | 2024-01-08 04:54 | PC.NURSE ---
Pt is alert and oriented. Has had no complaints this shift. NG to left nare @ 60, draining light green fluid with some chunks visible. Midline incision CDI, steri strips in place. Mild distention noted. Inguinal hernia reduced throughout shift by patient and myself. TPN infusing titrated to 50mL/hr @ 2230. Titrated to 75mL/hr @ 0430, no issues noted. ACHS FS. No coverage needed thus far. Pt has stayed awake throughout most of the shift. Double lumen PICC in place to left upper arm. Call light in reach.
[2024-01-08] MEDS: FLUTICASONE/UMECLIDIN/VILANTER 100/62.5/25MCG INHALER 1 PUFF IH (06:03)
[2024-01-08] MEDS: LEVOTHYROXINE 175MCG (0.175MG) TAB 175 MCG PO (06:42)
[2024-01-08] MEDS: HUMALOG 100 UNIT/ML SQ ×3 (06:42→20:30)
--- NOTE | 2024-01-08 06:57 | P.PN_ITS ---
Subjective Narrative: Spoke with nursing via phone. Nsg reports --> the patient is feeling better . He had large loose BMs after SBFT yesterday evening. His abdomen is flatter and his hernia remains easy to reduce . Exam Data for Last 24 hours Vital signs and Labs for Last 24 Hours: Temp Pulse Resp BP Pulse Ox O2 Del Method O2 Flow Rate 98.6 F 70 16 123/74 95 Room Air 0 01/08/24 04:00 01/08/24 06:04 01/08/24 04:00 01/08/24 04:00 01/08/24 04:00 01/08/24 05:00 01/04/24 20:00 FiO2 28 12/29/23 19:46 Laboratory Results - last 24 hr 01/07/24 06:50: Sodium 136, Potassium 3.8, Chloride 108 H, Carbon Dioxide 21 L, Anion Gap 10.8, BUN 18, Creatinine 0.70, Estimated Creat Clear 57, Estimated GFR 107, Est GFR ( Amer) 130, Glucose 114 H D, Calcium 8.6, Total Bilirubin 0.4, AST 25, ALT 21, Alkaline Phosphatase 224 H, Total Protein 5.1 L, Albumin 2.7 L D, Globulin 2.4, Albumin/Globulin Ratio 1.1 01/07/24 10:08: WBC 15.0 H, RBC 3.86 L, Hgb 12.8 L, Hct 38.4 L, MCV 99.5 H, MCH 33.2 H, MCHC 33.3, RDW 15.3, Plt Count 280 D, MPV 7.8, Neut % (Auto) 78.0, Lymph % (Auto) 16.7, [place] % (Auto) 4.7, Eos % (Auto) 0.3, Baso % (Auto) 0.3, Neut # (Auto) 11.7 H, Lymph # (Auto) 2.5, [place] # (Auto) 0.7, Eos # (Auto) 0.0, Baso # (Auto) 0.1, Total Counted 100, Neutrophils % (Manual) 82 H, Lymphocytes % (Manual) 13, Monocytes % (Manual) 5, Platelet Estimate Normal, RBC Morphology Normal 01/07/24 11:35: PT 12.5, INR 1.13 H, Phosphorus 2.9, Magnesium 1.5 L D, Triglycerides 137, Cholesterol 123 L 01/07/24 13:25: Vancomycin Trough 18.0 H 01/07/24 16:31: POC Glucose 139 H I & O for Last 24 hours: Intake & Output 01/05/24 01/06/24 01/07/24 01/08/24 11:59 11:59 11:59 11:59 Intake Total 700 / 700 240 / 240 1900 / 1900 887 / 887 Output Total 825 / 825 200 / 200 950 / 950 1800 / 1800 Balance -125 / -125 40 / 40 950 / 950 -913 / -913 Weight 161 lb 14.4 oz 166 lb 12.8 oz 161 lb 6.4 oz 156 lb 6.4 oz Radiology Reports for the Last 24 Hours: SBFT showed no evidence of mechanical obstruction (showed dilated SB c/w ileus) Constitutional Constitutional: agitated Comments: deferred (not examined in person) Progress Note: A&P Assessment and plan (1) Status post laparotomy with lysis of adhesions: Status: Acute Assessment and plan: Postoperative day 12. Per nursing...He currently feels better...his abdomen is not distended...his LIH remains easily recucible. SBFT yesterday revealed no evidence of mechanical obstruction (revealed SB dilation c/w ileus) NG to drain bag Continue to confirm reducibility of LIH Continue incentive spirometer Continue to increase ambulation (continue PT/OT) Continue overall management as per primary service (2) Postoperative ileus: Status: Acute Assessment and plan: Fairly profound/extended postoperative ileus. (See #1 above) Assessment and Plan Assessment and Plan for All Diagnoses:: Although there is no definitive evidence of mechanical obstruction...although his LIH has shown no evidence of incarceration...the overall course remains extreme for post-operative ileus. Continuing to evaluate for (and eliminate) any non-surgical cause remains important.
[2024-01-08 07:16] LABS: Basophils % 0.2 % (0.1-2.0); Eosinophils # 0.1 K/mm3 (0.0-0.4); Hematocrit 33.3 % (42.0-52.0); Lymphocytes # 2.5 K/mm3 (0.7-4.5); Lymphocytes % 24.7 % (10-50); Mean Corpuscular HGB Conc 33.4 g/dL (31.8-35.4); Mean Corpuscular Hemoglobin 33.1 pg (27.0-31.2); Mean Platelet Volume 7.7 fl (7.4-10.4); Monocytes # 0.7 K/mm3 (0.1-1.0); Monocytes % 6.8 % (1.7-9.3); Neutrophils # 6.9 K/mm3 (1.8-7.8); Neutrophils % 67.3 % (37.0-80.0); Platelet Count 233 K/mm3 (142-424); Red Blood Count 3.36 M/mm3 (4.60-6.20); Red Cell Distribution Width 15.2 % (11.5-17.5); White Blood Count 10.2 K/mm3 (4.8-10.8)
[2024-01-08 07:18] LABS: Chloride 112 mmol/L (98-107)
[2024-01-08 07:19] LABS: Sodium 141 mmol/L (136-145)
[2024-01-08 07:21] LABS: Alanine Aminotransferase 25 U/L (12-78); Anion Gap 6.8 mEq/L (5-15); Aspartate Amino Transferase 30 U/L (17-59); Blood Urea Nitrogen 19 mg/dl (9-20); Carbon Dioxide 25 mmol/L (22.0-30.0); Creatinine Clearance Estimated 55 mL/min (50-200); Estimated Glomerular Filt Rate 107 ml/min (>60); GFR (African American) 130 ML/MIN (>60)
[2024-01-08 07:22] LABS: Albumin Level 2.5 g/dl (3.5-5.0); Alkaline Phosphatase 194 U/L (38-126); Bilirubin,Total 0.2 mg/dl (0.2-1.3); Calcium 8.5 mg/dl (8.4-10.2); Globulin 2.4 g/dL (1.3-3.2); Glucose 145 mg/dl (74-100); Magnesium 1.6 mg/dl (1.6-2.3); Phosphorous 2.3 mg/dl (2.5-4.5); Total Protein,Serum 4.9 g/dl (6.3-8.2)
[2024-01-08] MEDS: VANCOMYCIN/WATER FOR INJ (PEG) 1.75 GM/350 ML PIGGYBACK IV (08:15)
[2024-01-08] MEDS: HYDROCODONE/APAP 5/325 MG TABLET 1 TAB PO ×2 (08:15→19:39)
[2024-01-08] MEDS: GABAPENTIN 100MG CAPSULE 100 MG PO ×2 (08:16→20:30)
[2024-01-08] MEDS: APIXABAN 5MG TABLET 5 MG PO ×2 (08:16→20:30)
[2024-01-08] MEDS: POTASSIUM CHLORIDE 20MEQ TAB 20 MEQ PO ×3 (08:16→20:29)
[2024-01-08] MEDS: CARVEDILOL 12.5MG TABLET 12.5 MG PO ×2 (08:16→20:30)
[2024-01-08] MEDS: SPIRONOLACTONE 25MG TABLET 12.5 MG PO (08:17)
[2024-01-08] MEDS: SACUBITRIL/VALSARTAN 24-26MG TABLET 1 EACH PO ×2 (08:17→20:30)
[2024-01-08 08:36] LABS: Potassium 2.8 mmoL/L (3.5-5.1)
--- NOTE | 2024-01-08 09:14 | PC.NURSE ---
COURTESY TECH NOTE; ROUNDED ON PT 0800, PT REQUEST PAIN MEDICATION, NURSE NOTIFIED. ICE CHIPS BROUGHT AT PT REQUEST. NO FURTHER REQUESTS AT THIS TIME Marry WILCOX, SRNA
[2024-01-08 09:27] LABS: Hemoglobin 11.1 g/dL (14.1-18.0)
--- NOTE | 2024-01-08 10:21 | DIET.NUTRFU ---
TPN running per pharmacy dose, providing 2000kcal and 144gm protein. Nutritional needs are 2000kcal and 75gm protein. Renal labs are WNL, will continue current dose. Potassium depleted today, replacement ordered. Loose BM noted last night and abdomen not as distended. NG to drain-600ml yesterday and already 800ml today. When able to start oral diet, amanda TPN- notify pharmacy to adjust. BS 145H, insulin in place. Will continue to monitor diet status and TPN labs
[2024-01-08] MEDS: MAGNESIUM SULFATE IN WATER 2 GM/50 ML PIGGYBACK IV (10:26)
[2024-01-08] MEDS: KCl 20mEq/100ml 100 ML 50 MEQ IV ×3 (11:23→17:46)
[2024-01-08] MEDS: AA 5 %/CALCIUM/LYTES/DEXT 20 % 1,000 ML 75 ML IV (11:43)
[2024-01-08 12:05] LABS: POC Glucose,Bedside 181 (70-110)
[2024-01-08] MEDS: FAT EMULSIONS 250 ML 60 ML IV (14:40)
--- NOTE | 2024-01-08 15:48 | PC.NURSE ---
Pt is currently sitting up in bed. Has ambulated to bathroom with stand by assist and walker. Tolerated well. New NG placed to (L) nare @ 65 cm. 18 fr. It is currently to draining to gravity bag. TPN, Lipids and potassium currently infusing at this time to double lumen PICC line. Call light within reach.
--- NOTE | 2024-01-08 16:26 | XR_ITS ---
PROCEDURE INFORMATION: Exam: XR Abdomen Exam date and time: 01/08/2024 4:38 PM Age: 83 years old Clinical indication: Device placement; Gi device; Nasogastric tube; Additional info: New ng placement TECHNIQUE: Imaging protocol: Radiologic exam of the abdomen. Views: Frontal supine view of the abdomen. 1 View. COMPARISON: CR XR KUB 01/07/2024 11:41 AM FINDINGS: Tubes, catheters and devices: Nasogastric tube identified with tip projecting over the body of the stomach. Gastrointestinal tract: Retained oral contrast material within the small bowel and colon. No evidence for bowel dilation. Bones/joints: Unremarkable. IMPRESSION: 1. Nasogastric tube identified with tip projecting over the body of the stomach. 2. Retained oral contrast material within the small bowel and colon. No evidence for bowel dilation.
[2024-01-08 16:44] LABS: POC Glucose,Bedside 125 (70-110)
--- NOTE | 2024-01-08 17:31 | P.PN_ITS ---
Subjective *Date: 01/08/24 *Time: 17:31 Interval history: seen at bedside, alert awake, holding conversations, lyng in bed comfortably, NG tube in place Exam Data for Last 24 hours Vital signs and Labs for Last 24 Hours: Temp Pulse Resp BP Pulse Ox O2 Del Method O2 Flow Rate 97.7 F 67 18 127/81 98 Room Air 0 01/08/24 16:00 01/08/24 16:00 01/08/24 16:00 01/08/24 16:00 01/08/24 16:00 01/08/24 16:00 01/04/24 20:00 FiO2 28 12/29/23 19:46 Laboratory Results - last 24 hr 01/08/24 06:50: WBC 10.2 D, RBC 3.36 L, Hgb 11.1 L D, Hct 33.3 L, MCV 99.0 H, MCH 33.1 H, MCHC 33.4, RDW 15.2, Plt Count 233, MPV 7.7, Neut % (Auto) 67.3, Lymph % (Auto) 24.7, [place] % (Auto) 6.8, Eos % (Auto) 1.0, Baso % (Auto) 0.2, Neut # (Auto) 6.9, Lymph # (Auto) 2.5, [place] # (Auto) 0.7, Eos # (Auto) 0.1, Baso # (Auto) 0.0, Sodium 141, Potassium 2.8 L* D, Chloride 112 H, Carbon Dioxide 25, Anion Gap 6.8, BUN 19, Creatinine 0.70, Estimated Creat Clear 55, Estimated GFR 107, Est GFR ( Amer) 130, Glucose 145 H D, Calcium 8.5, Phosphorus 2.3 L, Magnesium 1.6, Total Bilirubin 0.2, AST 30, ALT 25, Alkaline Phosphatase 194 H, Total Protein 4.9 L, Albumin 2.5 L, Globulin 2.4, Albumin/Globulin Ratio 1.0 L 01/08/24 11:25: POC Glucose 181 H 01/08/24 16:19: POC Glucose 125 H I & O for Last 24 hours: Intake & Output 01/05/24 01/06/24 01/07/24 01/08/24 23:59 23:59 23:59 23:59 Intake Total 590 / 590 1450 / 1800 550 / 550 194 / 194 Output Total 625 / 625 950 / 950 1000 / 1000 1300 / 1300 Balance -35 / -35 500 / 850 -450 / -450 649 / 649 Weight 73.437 kg 75.659 kg 73.21 kg 70.942 kg Constitutional Constitutional: no acute distress *Routine HEENT Exam Head: Present normocephalic Eye: Present EOMI and PERRL ENT: Present mucous membranes moist *Routine Neck Exam Neck: Present supple; Absent lymphadenopathy *Routine Respiratory Exam Respiratory: Present CTA bilaterally *Routine Cardiovascular Exam Cardiovascular: Present RRR *Routine Abdominal Exam Abdominal: Present soft, normoactive bowel sounds, tenderness and distended *Routine Extremities Exam Extremities: Absent cyanosis, clubbing or edema *Routine Skin Exam Skin: Present warm; Absent rash *Routine Neurological Exam Neurological: Present alert and oriented X3 Assessment and Plan *Assessment and plan (1) Small bowel obstruction: Status: Acute Category: Medical Code(s): K56.609 - Unspecified intestinal obstruction, unspecified as to partial versus complete obstruction (2) Abdominal pain: Status: Acute Qualifiers: Abdominal location: periumbilical Qualified Code(s): R10.33 - Periumbilical pain Category: Medical Code(s): R10.9 - Unspecified abdominal pain (3) Status post laparotomy with lysis of adhesions: Status: Acute Category: Surgical Code(s): Z98.890 - Other specified postprocedural states (4) Acute osteomyelitis of lumbar spine: Status: Acute Category: Medical Code(s): M46.26 - Osteomyelitis of vertebra, lumbar region (5) Hypertension: Status: Acute Qualifiers: Hypertension type: unspecified Qualified Code(s): I10 - Essential (primary) hypertension Category: Medical Code(s): I10 - Essential (primary) hypertension (6) Hyperlipidemia: Status: Acute Qualifiers: Hyperlipidemia type: unspecified Qualified Code(s): E78.5 - Hyperlipidemia, unspecified Category: Medical Code(s): E78.5 - Hyperlipidemia, unspecified (7) Hypothyroidism: Status: Chronic Qualifiers: Hypothyroidism type: acquired Qualified Code(s): E03.9 - Hypothyroidism, unspecified Category: Medical Code(s): E03.9 - Hypothyroidism, unspecified (8) COPD (chronic obstructive pulmonary disease): Status: Acute Qualifiers: COPD type: unspecified COPD Qualified Code(s): J44.9 - Chronic obstructive pulmonary disease, unspecified Category: Medical Code(s): J44.9 - Chronic obstructive pulmonary disease, unspecified (9) Biventricular ICD (implantable cardioverter-defibrillator) in place: Status: Acute Category: Surgical Code(s): Z95.810 - Presence of automatic (implantable) cardiac defibrillator Plan 83-year-old male with a 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 Findings discussed with ED. A CT scan revealed evidence of distended small bowel loops and mesenteric volvulus. patient underwent OR for surgical intervention. Acute abdominal pain likely secondary to SBO s/p laparotomy with lysis of adhesions Postop ileus Patient is made NPO NG tube reinserted Abdomen is distended he had BM today morning encuraged mobility Suspected acute OM of L-spine - Image concerning for discitis with endplate destruction. Continue vancomycin IV, resume Zosyn. - records from [place] - reviewed. - Began treatment at the end of October. Due to complete course on 01/09 - discussed with pharmacy Stable chronic conditions: Hypertension hyperlipidemia hypothyroidism and COPD: Synthroid 100 mcg Entresto, bisoprolol Optimize O2 saturation, oxygen as needed, currently on 2 L for sats greater 90%. 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
[2024-01-08] MEDS: PRAVASTATIN 40MG TAB 40 MG PO (20:30)
[2024-01-08] MEDS: TAMSULOSIN 0.4MG CAPSULE 0.400000000000000022 MG PO (20:30)
[2024-01-08] MEDS: PANTOPRAZOLE 40MG VIAL 40 MG IV (20:30)
[2024-01-08] MEDS: SODIUM CHLORIDE 0.9% 10ML VIAL 10 ML IV (20:30)
[2024-01-08 21:12] LABS: Chloride 109 mmol/L (98-107); Sodium 135 mmol/L (136-145)
[2024-01-08 21:13] LABS: Potassium 3.1 mmoL/L (3.5-5.1)
[2024-01-08 21:16] LABS: Anion Gap 7.1 mEq/L (5-15); Blood Urea Nitrogen 19 mg/dl (9-20); Calcium 8.1 mg/dl (8.4-10.2); Carbon Dioxide 22 mmol/L (22.0-30.0); Creatinine Clearance Estimated 55 mL/min (50-200); Estimated Glomerular Filt Rate 128 ml/min (>60); GFR (African American) 155 ML/MIN (>60); Glucose 150 mg/dl (74-100)
[2024-01-09] VITALS (11 sets, daily range): BP systolic 111–128; BP diastolic 60–82; PULSE 52–108; RESP 16–19; TEMP 36.3–36.9; O2SAT 92–97; BMI 23.8
[2024-01-09] MEDS: IPRATROPIUM/ALBUTEROL 3 ML NEB IH ×4 (00:07→18:19)
[2024-01-09] MEDS: AA 5 %/CALCIUM/LYTES/DEXT 20 % 1,000 ML 75 ML IV (01:35)
[2024-01-09] MEDS: VANCOMYCIN/WATER FOR INJ (PEG) 1.75 GM/350 ML PIGGYBACK IV ×2 (01:59→20:25)
[2024-01-09] MEDS: PIPERACILLIN/TAZO 4.5 GM in 0.9 % SODIUM CHLORIDE 100 ML IV ×3 (02:00→18:34)
[2024-01-09] MEDS: HYDROCODONE/APAP 5/325 MG TABLET 1 TAB PO ×3 (04:10→17:28)
--- NOTE | 2024-01-09 04:57 | PC.NURSE ---
Pt is alert and oriented. NG in place to left nare @ 65. Residual checked Q4, 30 @ 1930, 40 @ 2330, 20 @ 0330. NG placed to gravity drain bag, 90 total in bag. Pt has complained of pain, treated per sep. Abdomen soft, mildly distended to left side, no change from previous assessment. Midline steri strips CDI. Inguinal hernia reducible throughout shift. TPN infusing through PICC. Pt has rested on and off throughout shift. Uses urinal. Call light in reach.
[2024-01-09] MEDS: LEVOTHYROXINE 175MCG (0.175MG) TAB 175 MCG PO (06:12)
[2024-01-09 06:16] LABS: POC Glucose,Bedside 105 (70-110)
[2024-01-09] MEDS: FLUTICASONE/UMECLIDIN/VILANTER 100/62.5/25MCG INHALER 1 PUFF IH (06:26)
[2024-01-09 06:56] LABS: Basophils # 0.1 K/mm3 (0-0.2); Basophils % 0.6 % (0.1-2.0); Eosinophils # 0.3 K/mm3 (0.0-0.4); Eosinophils % 3.6 % (0.1-12.0); Hematocrit 31.1 % (42.0-52.0); Lymphocytes # 2.2 K/mm3 (0.7-4.5); Lymphocytes % 24.8 % (10-50); Mean Corpuscular HGB Conc 32.1 g/dL (31.8-35.4); Mean Corpuscular Hemoglobin 32.4 pg (27.0-31.2); Mean Platelet Volume 8.7 fl (7.4-10.4); Monocytes # 0.5 K/mm3 (0.1-1.0); Monocytes % 5.8 % (1.7-9.3); Neutrophils # 5.9 K/mm3 (1.8-7.8); Neutrophils % 65.2 % (37.0-80.0); Platelet Count 224 K/mm3 (142-424); Red Blood Count 3.08 M/mm3 (4.60-6.20); Red Cell Distribution Width 15.4 % (11.5-17.5); White Blood Count 9.1 K/mm3 (4.8-10.8)
[2024-01-09 07:00] LABS: Chloride 107 mmol/L (98-107); Sodium 134 mmol/L (136-145)
[2024-01-09 07:03] LABS: Alanine Aminotransferase 24 U/L (12-78); Albumin Level 2.3 g/dl (3.5-5.0); Alkaline Phosphatase 179 U/L (38-126); Aspartate Amino Transferase 32 U/L (17-59); Bilirubin,Total 0.2 mg/dl (0.2-1.3); Blood Urea Nitrogen 19 mg/dl (9-20); Calcium 7.9 mg/dl (8.4-10.2); Carbon Dioxide 24 mmol/L (22.0-30.0); Creatinine Clearance Estimated 59 mL/min (50-200); Estimated Glomerular Filt Rate 128 ml/min (>60); GFR (African American) 155 ML/MIN (>60); Globulin 2.2 g/dL (1.3-3.2); Glucose 106 mg/dl (74-100); Magnesium 1.6 mg/dl (1.6-2.3); Total Protein,Serum 4.5 g/dl (6.3-8.2)
[2024-01-09 07:11] LABS: Phosphorous 1.9 mg/dl (2.5-4.5)
[2024-01-09] MEDS: GABAPENTIN 100MG CAPSULE 100 MG PO ×2 (08:47→20:29)
[2024-01-09] MEDS: POTASSIUM CHLORIDE 20MEQ TAB 20 MEQ PO (08:48)
[2024-01-09] MEDS: CARVEDILOL 12.5MG TABLET 12.5 MG PO ×2 (08:48→20:30)
[2024-01-09] MEDS: APIXABAN 5MG TABLET 5 MG PO ×2 (08:48→20:30)
[2024-01-09] MEDS: SACUBITRIL/VALSARTAN 24-26MG TABLET 1 EACH PO ×2 (08:49→20:29)
[2024-01-09] MEDS: SPIRONOLACTONE 25MG TABLET 12.5 MG PO (08:49)
[2024-01-09] MEDS: KCl 20mEq/100ml 100 ML 50 MEQ IV ×3 (09:30→15:19)
[2024-01-09] MEDS: MAGNESIUM SULFATE IN WATER 2 GM/50 ML PIGGYBACK IV (09:31)
[2024-01-09 11:09] LABS: POC Glucose,Bedside 126 (70-110)
[2024-01-09] MEDS: [UNRECOGNIZED DRUG - REMARK] 75 ML IV (13:29)
[2024-01-09] MEDS: FAT EMULSIONS 250 ML 60 ML IV (13:29)
[2024-01-09] MEDS: POTASSIUM CHLORIDE 20MEQ/15ML UDC 20 MEQ PO ×2 (13:29→20:29)
--- NOTE | 2024-01-09 14:15 | P.PN_ITS ---
Subjective Narrative: No acute events overnight. C/o sleeplessness, c/o of throat irritation from NGT. No flatus or BM today. Reports he and nurses manually reduce left inguinal hernia without issues. Denies n/v. NGT has been to gravity, 300 mL/24 hours, now clamped for meds. Hypokalemia is being replaced po and IV. Exam Data for Last 24 hours Vital signs and Labs for Last 24 Hours: Temp Pulse Resp BP Pulse Ox O2 Del Method O2 Flow Rate 97.4 F L 64 18 116/60 92 L Room Air 0 01/09/24 11:45 01/09/24 11:45 01/09/24 11:45 01/09/24 11:45 01/09/24 11:45 01/09/24 13:00 01/04/24 20:00 FiO2 28 12/29/23 19:46 Laboratory Results - last 24 hr 01/08/24 16:19: POC Glucose 125 H 01/08/24 20:45: Sodium 135 L, Potassium 3.1 L, Chloride 109 H, Carbon Dioxide 22, Anion Gap 7.1, BUN 19, Creatinine 0.60 L, Estimated Creat Clear 55, Estimated GFR 128, Est GFR ( Amer) 155, Glucose 150 H, Calcium 8.1 L 01/09/24 06:09: POC Glucose 105 01/09/24 06:30: WBC 9.1, RBC 3.08 L, Hgb 10.0 L, Hct 31.1 L, MCV 101.0 H, MCH 32.4 H, MCHC 32.1, RDW 15.4, Plt Count 224, MPV 8.7, Neut % (Auto) 65.2, Lymph % (Auto) 24.8, [place] % (Auto) 5.8, Eos % (Auto) 3.6, Baso % (Auto) 0.6, Neut # (Auto) 5.9, Lymph # (Auto) 2.2, [place] # (Auto) 0.5, Eos # (Auto) 0.3, Baso # (Auto) 0.1, Sodium 134 L, Potassium 3.0 L, Chloride 107, Carbon Dioxide 24, Anion Gap 6.0, BUN 19, Creatinine 0.60 L, Estimated Creat Clear 59, Estimated GFR 128, Est GFR ( Amer) 155, Glucose 106 H D, Calcium 7.9 L, Phosphorus 1.9 L, Magnesium 1.6, Total Bilirubin 0.2, AST 32, ALT 24, Alkaline Phosphatase 179 H, Total Protein 4.5 L, Albumin 2.3 L, Globulin 2.2, Albumin/Globulin Ratio 1.0 L 01/09/24 10:58: POC Glucose 126 H I & O for Last 24 hours: Intake & Output 01/06/24 01/07/24 01/08/24 01/09/24 23:59 23:59 23:59 23:59 Intake Total 1450 / 1800 550 / 550 1949 / 1949 1229 / 1229 Output Total 950 / 950 1000 / 1000 1700 / 1700 900 / 900 Balance 500 / 850 -450 / -450 249 / 249 329 / 329 Weight 166 lb 12.8 oz 161 lb 6.4 oz 156 lb 6.4 oz 166 lb 3.2 oz Constitutional Constitutional: no acute distress and cooperative *Routine Abdominal Exam Abdominal: Present soft and normoactive bowel sounds Comments: mildly distended but very soft. Midline incision healing well with steri strips. Left inguinal is soft, and easily reducible. Progress Note: A&P Assessment and plan (1) Small bowel obstruction: Status: Acute Assessment and plan: POD#13 s/p ex lap and LEAH for adhesive SBO. Has persisted with ileus postoperatively. SBFT showed no obstruction. I reviewed KUB images and report from yesterday: some dilated bowel, oral contrast is in colon. NGT located in stomach. NGT has been to gravity with output of 300 mL/24 hours. Currently clamped. Will leave clamped overnight barring any vomiting/distension, and reassess in the morning. May possibly remove if he has favorable bowel sounds tomorrow and reports bowel function. Hypokalemia is likely contributing to ileus: replacement ordered by hospitalist service. Continue out of bed, pulmonary toilet. (2) Abdominal pain: Status: Acute (3) Status post laparotomy with lysis of adhesions: Status: Acute (4) Acute osteomyelitis of lumbar spine: Status: Acute (5) Hypertension: Status: Acute (6) Hyperlipidemia: Status: Acute (7) Hypothyroidism: Status: Chronic (8) COPD (chronic obstructive pulmonary disease): Status: Acute (9) Biventricular ICD (implantable cardioverter-defibrillator) in place: Status: Acute
--- NOTE | 2024-01-09 14:47 | P.PN_ITS ---
Subjective *Date: 01/09/24 *Time: 14:47 Interval history: seen at [facility], alert awake in bed, NG inplace, does not complain of abdominal pain, passing gas Exam Data for Last 24 hours Vital signs and Labs for Last 24 Hours: Temp Pulse Resp BP Pulse Ox O2 Del Method O2 Flow Rate 97.4 F L 64 18 116/60 92 L Room Air 0 01/09/24 11:45 01/09/24 11:45 01/09/24 11:45 01/09/24 11:45 01/09/24 11:45 01/09/24 14:37 01/04/24 20:00 FiO2 28 12/29/23 19:46 Laboratory Results - last 24 hr 01/08/24 16:19: POC Glucose 125 H 01/08/24 20:45: Sodium 135 L, Potassium 3.1 L, Chloride 109 H, Carbon Dioxide 22, Anion Gap 7.1, BUN 19, Creatinine 0.60 L, Estimated Creat Clear 55, Estimated GFR 128, Est GFR ( Amer) 155, Glucose 150 H, Calcium 8.1 L 01/09/24 06:09: POC Glucose 105 01/09/24 06:30: WBC 9.1, RBC 3.08 L, Hgb 10.0 L, Hct 31.1 L, MCV 101.0 H, MCH 32.4 H, MCHC 32.1, RDW 15.4, Plt Count 224, MPV 8.7, Neut % (Auto) 65.2, Lymph % (Auto) 24.8, [place] % (Auto) 5.8, Eos % (Auto) 3.6, Baso % (Auto) 0.6, Neut # (Auto) 5.9, Lymph # (Auto) 2.2, [place] # (Auto) 0.5, Eos # (Auto) 0.3, Baso # (Auto) 0.1, Sodium 134 L, Potassium 3.0 L, Chloride 107, Carbon Dioxide 24, Anion Gap 6.0, BUN 19, Creatinine 0.60 L, Estimated Creat Clear 59, Estimated GFR 128, Est GFR ( Amer) 155, Glucose 106 H D, Calcium 7.9 L, Phosphorus 1.9 L, Magnesium 1.6, Total Bilirubin 0.2, AST 32, ALT 24, Alkaline Phosphatase 179 H, Total Protein 4.5 L, Albumin 2.3 L, Globulin 2.2, Albumin/Globulin Ratio 1.0 L 01/09/24 10:58: POC Glucose 126 H I & O for Last 24 hours: Intake & Output 01/06/24 01/07/24 01/08/24 01/09/24 23:59 23:59 23:59 23:59 Intake Total 1450 / 1800 550 / 550 1949 / 1949 1229 / 1229 Output Total 950 / 950 1000 / 1000 1700 / 1700 900 / 900 Balance 500 / 850 -450 / -450 249 / 249 329 / 329 Weight 75.659 kg 73.21 kg 70.942 kg 75.387 kg Constitutional Constitutional: no acute distress *Routine HEENT Exam Head: Present normocephalic Eye: Present EOMI and PERRL ENT: Present mucous membranes moist *Routine Neck Exam Neck: Present supple; Absent lymphadenopathy *Routine Respiratory Exam Respiratory: Present CTA bilaterally *Routine Cardiovascular Exam Cardiovascular: Present RRR *Routine Abdominal Exam Abdominal: Present soft, normoactive bowel sounds, tenderness and distended *Routine Extremities Exam Extremities: Absent cyanosis, clubbing or edema *Routine Skin Exam Skin: Present warm; Absent rash *Routine Neurological Exam Neurological: Present alert and oriented X3 Assessment and Plan *Assessment and plan (1) Small bowel obstruction: Status: Acute Category: Medical Code(s): K56.609 - Unspecified intestinal obstruction, unspecified as to partial versus complete obstruction (2) Abdominal pain: Status: Acute Qualifiers: Abdominal location: periumbilical Qualified Code(s): R10.33 - Periumbilical pain Category: Medical Code(s): R10.9 - Unspecified abdominal pain (3) Status post laparotomy with lysis of adhesions: Status: Acute Category: Surgical Code(s): Z98.890 - Other specified postprocedural states (4) Acute osteomyelitis of lumbar spine: Status: Acute Category: Medical Code(s): M46.26 - Osteomyelitis of vertebra, lumbar region (5) Hypertension: Status: Acute Qualifiers: Hypertension type: unspecified Qualified Code(s): I10 - Essential (primary) hypertension Category: Medical Code(s): I10 - Essential (primary) hypertension (6) Hyperlipidemia: Status: Acute Qualifiers: Hyperlipidemia type: unspecified Qualified Code(s): E78.5 - Hyperlipidemia, unspecified Category: Medical Code(s): E78.5 - Hyperlipidemia, unspecified (7) Hypothyroidism: Status: Chronic Qualifiers: Hypothyroidism type: acquired Qualified Code(s): E03.9 - Hypothyroidism, unspecified Category: Medical Code(s): E03.9 - Hypothyroidism, unspecified (8) COPD (chronic obstructive pulmonary disease): Status: Acute Qualifiers: COPD type: unspecified COPD Qualified Code(s): J44.9 - Chronic obstructive pulmonary disease, unspecified Category: Medical Code(s): J44.9 - Chronic obstructive pulmonary disease, unspecified (9) Biventricular ICD (implantable cardioverter-defibrillator) in place: Status: Acute Category: Surgical Code(s): Z95.810 - Presence of automatic (implantable) cardiac defibrillator Plan 83-year-old male with a 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 Findings discussed with ED. A CT scan revealed evidence of distended small bowel loops and mesenteric volvulus. patient underwent OR for surgical intervention. Acute abdominal pain likely secondary to SBO s/p laparotomy with lysis of adhesions Postop ileus Patient is made NPO NG tube reinserted, currently clamped Abdomen is distended, he had BM yesterday, passing gas encouraged mobility Suspected acute OM of L-spine - Image concerning for discitis with endplate destruction. Continue vancomycin IV, resume Zosyn. end date 01/09 discussed with pharmacy Stable chronic conditions: Hypertension hyperlipidemia hypothyroidism and COPD: Synthroid 100 mcg Entresto, bisoprolol Optimize O2 saturation, oxygen as needed, currently on 2 L for sats greater 90%. 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
--- NOTE | 2024-01-09 16:21 | PC.NURSE ---
neurosurgical nurse& O x3 and is resting in bed. Denies any discomfort at this time. NG to (L) nare clamped per MD order. Pt has been receiving TPN, Lipids, replacement potassium, IV ABX. Inguinal hernia reduces without difficulty. FSBS obtained. PICC line DSG changed this shift. Call light within reach.
[2024-01-09 16:35] LABS: POC Glucose,Bedside 134 (70-110)
[2024-01-09] MEDS: POTASSIUM PHOSPHATE 9 MMOL in 0.9 % SODIUM CHLORIDE 250 ML 63.25 MMOL IV (17:24)
[2024-01-09] MEDS: PANTOPRAZOLE 40MG VIAL 40 MG IV (20:29)
[2024-01-09] MEDS: SODIUM CHLORIDE 0.9% 10ML VIAL 10 ML IV (20:29)
[2024-01-09] MEDS: TAMSULOSIN 0.4MG CAPSULE 0.400000000000000022 MG PO (20:29)
[2024-01-09] MEDS: PRAVASTATIN 40MG TAB 40 MG PO (20:30)
[2024-01-10] VITALS (10 sets, daily range): BP systolic 107–130; BP diastolic 53–71; PULSE 50–89; RESP 16–20; TEMP 36.4–36.9; O2SAT 95–98; BMI 23.4
[2024-01-10] MEDS: IPRATROPIUM/ALBUTEROL 3 ML NEB IH ×4 (00:34→17:59)
[2024-01-10] MEDS: HYDROCODONE/APAP 5/325 MG TABLET 1 TAB PO ×2 (01:32→13:47)
[2024-01-10] MEDS: AA 5 %/CALCIUM/LYTES/DEXT 20 % 1,000 ML 75 ML IV (01:33)
[2024-01-10] MEDS: PIPERACILLIN/TAZO 4.5 GM in 0.9 % SODIUM CHLORIDE 100 ML IV (03:21)
--- NOTE | 2024-01-10 04:21 | PC.NURSE ---
Pt is alert and oriented x4 and currently tolerating RA. Pt has c/o pain this shift and has been treated per SEP. Pt has received antibiotic therapy and TPN throughout this shift and has tolerated both well. NG remains in L nare @ 65. Inserted new IV access to L forearm.
[2024-01-10] MEDS: FLUTICASONE/UMECLIDIN/VILANTER 100/62.5/25MCG INHALER 1 PUFF IH (06:11)
[2024-01-10 06:57] LABS: POC Glucose,Bedside 134 (70-110)
[2024-01-10 06:57] LABS: POC Glucose,Bedside 150 (70-110)
[2024-01-10 07:25] LABS: Chloride 106 mmol/L (98-107); Sodium 133 mmol/L (136-145)
[2024-01-10 07:26] LABS: Potassium 3.8 mmoL/L (3.5-5.1)
[2024-01-10 07:28] LABS: Alanine Aminotransferase 40 U/L (12-78); Albumin Level 2.4 g/dl (3.5-5.0); Albumin/Globulin Ratio 1.1 (1.1-1.8); Alkaline Phosphatase 208 U/L (38-126); Anion Gap 7.8 mEq/L (5-15); Aspartate Amino Transferase 57 U/L (17-59); Bilirubin,Total 0.4 mg/dl (0.2-1.3); Blood Urea Nitrogen 18 mg/dl (9-20); Carbon Dioxide 23 mmol/L (22.0-30.0); Creatinine Clearance Estimated 58 mL/min (50-200); Estimated Glomerular Filt Rate 128 ml/min (>60); GFR (African American) 155 ML/MIN (>60); Globulin 2.2 g/dL (1.3-3.2); Phosphorous 3.1 mg/dl (2.5-4.5); Total Protein,Serum 4.6 g/dl (6.3-8.2)
[2024-01-10 07:29] LABS: Glucose 141 mg/dl (74-100); Magnesium 1.7 mg/dl (1.6-2.3)
[2024-01-10 07:37] LABS: Basophils % 0.4 % (0.1-2.0); Eosinophils # 0.5 K/mm3 (0.0-0.4); Eosinophils % 5.4 % (0.1-12.0); Hematocrit 29.7 % (42.0-52.0); Hemoglobin 11.2 g/dL (14.1-18.0); Lymphocytes # 2.2 K/mm3 (0.7-4.5); Lymphocytes % 25.3 % (10-50); Mean Corpuscular HGB Conc 37.8 g/dL (31.8-35.4); Mean Corpuscular Hemoglobin 36.4 pg (27.0-31.2); Mean Corpuscular Volume 96.3 fl (80-94); Mean Platelet Volume 8.1 fl (7.4-10.4); Monocytes # 0.5 K/mm3 (0.1-1.0); Monocytes % 5.4 % (1.7-9.3); Neutrophils # 5.4 K/mm3 (1.8-7.8); Neutrophils % 63.4 % (37.0-80.0); Platelet Count 222 K/mm3 (142-424); Red Blood Count 3.08 M/mm3 (4.60-6.20); Red Cell Distribution Width 15.2 % (11.5-17.5); White Blood Count 8.6 K/mm3 (4.8-10.8)
[2024-01-10] MEDS: ACETAMINOPHEN 325MG TAB 650 MG PO (08:09)
[2024-01-10] MEDS: SACUBITRIL/VALSARTAN 24-26MG TABLET 1 EACH PO ×2 (08:10→21:02)
[2024-01-10] MEDS: POTASSIUM CHLORIDE 20MEQ/15ML UDC 20 MEQ PO ×3 (08:10→21:02)
[2024-01-10] MEDS: CARVEDILOL 12.5MG TABLET 12.5 MG PO ×2 (08:10→21:02)
[2024-01-10] MEDS: APIXABAN 5MG TABLET 5 MG PO ×2 (08:10→21:02)
[2024-01-10] MEDS: SPIRONOLACTONE 25MG TABLET 12.5 MG PO (08:10)
[2024-01-10] MEDS: LEVOTHYROXINE 175MCG (0.175MG) TAB 175 MCG PO (08:11)
[2024-01-10] MEDS: GABAPENTIN 100MG CAPSULE 100 MG PO ×2 (08:11→21:02)
[2024-01-10] MEDS: KCl 20mEq/100ml 100 ML 50 MEQ IV (09:26)
[2024-01-10] MEDS: MAGNESIUM SULFATE IN WATER 2 GM/50 ML PIGGYBACK IV (09:26)
--- NOTE | 2024-01-10 09:27 | PC.NURSE ---
Pt placed back to gravity bag due to Abdominal distention. Denies abdominal discomfort at this time but c/o back pain.
--- NOTE | 2024-01-10 09:56 | EXP.SURG.PN ---
Subjective Narrative: Pt complains only of sore throat from NGT this morning. +Flatus and BM 30 minutes ago. Not ambulating much. Per nurse, had a run of V tach overnight that spontaneously resolved. NGT was clamped overnight, but was placed back to gravity bag this morning d/t increasing abdominal distension. He denies abdominal pain, nausea, vomiting, or any other GI complaint. Exam Data for Last 24 hours Vital signs and Labs for Last 24 Hours: Temp Pulse Resp BP Pulse Ox O2 Del Method O2 Flow Rate 97.8 F 50 L 18 126/71 96 Room Air 0 01/10/24 07:49 01/10/24 07:49 01/10/24 07:49 01/10/24 07:49 01/10/24 07:49 01/10/24 08:57 01/04/24 20:00 FiO2 28 12/29/23 19:46 Laboratory Results - last 24 hr 01/09/24 10:58: POC Glucose 126 H 01/09/24 16:28: POC Glucose 134 H 01/09/24 20:28: POC Glucose 134 H 01/10/24 05:44: POC Glucose 150 H 01/10/24 06:33: WBC 8.6, RBC 3.08 L, Hgb 11.2 L, Hct 29.7 L, MCV 96.3 H, MCH 36.4 H, MCHC 37.8 H, RDW 15.2, Plt Count 222, MPV 8.1, Neut % (Auto) 63.4, Lymph % (Auto) 25.3, [place] % (Auto) 5.4, Eos % (Auto) 5.4, Baso % (Auto) 0.4, Neut # (Auto) 5.4, Lymph # (Auto) 2.2, [place] # (Auto) 0.5, Eos # (Auto) 0.5 H, Baso # (Auto) 0.0, Sodium 133 L, Potassium 3.8 D, Chloride 106, Carbon Dioxide 23, Anion Gap 7.8, BUN 18, Creatinine 0.60 L, Estimated Creat Clear 58, Estimated GFR 128, Est GFR ( Amer) 155, Glucose 141 H, Calcium 8.0 L, Phosphorus 3.1 D, Magnesium 1.7, Total Bilirubin 0.4, AST 57 D, ALT 40 D, Alkaline Phosphatase 208 H, Total Protein 4.6 L, Albumin 2.4 L, Globulin 2.2, Albumin/Globulin Ratio 1.1 I & O for Last 24 hours: Intake & Output 01/07/24 01/08/24 01/09/24 01/10/24 23:59 23:59 23:59 23:59 Intake Total 550 / 550 194 / 1949 1329 / 2264 1841 / 1841 Output Total 1000 / 1000 1700 / 1700 1700 / 2250 1075 / 1075 Balance -450 / -450 249 / 249 -371 / 14 766 / 766 Weight 161 lb 6.4 oz 156 lb 6.4 oz 166 lb 3.2 oz 164 lb Constitutional Constitutional: no acute distress *Routine Abdominal Exam Abdominal: Present soft, normoactive bowel sounds and distended Comments: midline incision well-healed with steri strips Progress Note: A&P Assessment and plan (1) Small bowel obstruction: Status: Acute Assessment and plan: NGT was clamped overnight, but nurse placed back to gravity bag this morning d/t increased distension. Has several signs of bowel function, including normoactive bowel sounds, passing flatus/BM in past 24 hours, and SBFT from late last week showing no obstruction. Keep NGT to gravity today, check KUB tomorrow, consider discontinuing tomorrow if conditions are favorable. Hypokalemia has been repleted, K normal this morning. Continue TPN. (2) Abdominal pain: Status: Acute (3) Status post laparotomy with lysis of adhesions: Status: Acute (4) Acute osteomyelitis of lumbar spine: Status: Acute (5) Hypertension: Status: Acute (6) Hyperlipidemia: Status: Acute (7) Hypothyroidism: Status: Chronic (8) COPD (chronic obstructive pulmonary disease): Status: Acute (9) Biventricular ICD (implantable cardioverter-defibrillator) in place: Status: Acute
[2024-01-10 11:06] LABS: POC Glucose,Bedside 133 (70-110)
[2024-01-10] MEDS: VANCOMYCIN/WATER FOR INJ (PEG) 1.75 GM/350 ML PIGGYBACK IV (13:47)
[2024-01-10] MEDS: FAT EMULSIONS 250 ML 60 ML IV (13:48)
--- NOTE | 2024-01-10 14:28 | EXP.PN ---
Subjective *Date: 01/10/24 *Time: 14:28 Interval history: patient is seen at bedside, denied CP, SOB, N/V Exam Data for Last 24 hours Vital signs and Labs for Last 24 Hours: Temp Pulse Resp BP Pulse Ox O2 Del Method O2 Flow Rate 97.7 F 77 19 110/71 97 Room Air 0 01/10/24 11:46 01/10/24 11:46 01/10/24 11:46 01/10/24 11:46 01/10/24 11:46 01/10/24 12:59 01/04/24 20:00 FiO2 28 12/29/23 19:46 Laboratory Results - last 24 hr 01/09/24 16:28: POC Glucose 134 H 01/09/24 20:28: POC Glucose 134 H 01/10/24 05:44: POC Glucose 150 H 01/10/24 06:33: WBC 8.6, RBC 3.08 L, Hgb 11.2 L, Hct 29.7 L, MCV 96.3 H, MCH 36.4 H, MCHC 37.8 H, RDW 15.2, Plt Count 222, MPV 8.1, Neut % (Auto) 63.4, Lymph % (Auto) 25.3, [place] % (Auto) 5.4, Eos % (Auto) 5.4, Baso % (Auto) 0.4, Neut # (Auto) 5.4, Lymph # (Auto) 2.2, [place] # (Auto) 0.5, Eos # (Auto) 0.5 H, Baso # (Auto) 0.0, Sodium 133 L, Potassium 3.8 D, Chloride 106, Carbon Dioxide 23, Anion Gap 7.8, BUN 18, Creatinine 0.60 L, Estimated Creat Clear 58, Estimated GFR 128, Est GFR ( Amer) 155, Glucose 141 H, Calcium 8.0 L, Phosphorus 3.1 D, Magnesium 1.7, Total Bilirubin 0.4, AST 57 D, ALT 40 D, Alkaline Phosphatase 208 H, Total Protein 4.6 L, Albumin 2.4 L, Globulin 2.2, Albumin/Globulin Ratio 1.1 01/10/24 10:49: POC Glucose 133 H I & O for Last 24 hours: Intake & Output 01/07/24 01/08/24 01/09/24 01/10/24 23:59 23:59 23:59 23:59 Intake Total 550 / 550 1949 / 1949 1329 / 2264 1841 / 1841 Output Total 1000 / 1000 1700 / 1700 1700 / 2250 1250 / 1250 Balance -450 / -450 249 / 249 -371 / 14 591 / 591 Weight 73.21 kg 70.942 kg 75.387 kg 74.389 kg Constitutional Constitutional: no acute distress *Routine HEENT Exam Head: Present normocephalic Eye: Present EOMI and PERRL ENT: Present mucous membranes moist *Routine Neck Exam Neck: Present supple; Absent lymphadenopathy *Routine Respiratory Exam Respiratory: Present CTA bilaterally *Routine Cardiovascular Exam Cardiovascular: Present RRR *Routine Abdominal Exam Abdominal: Present soft and normoactive bowel sounds; Absent tenderness *Routine Extremities Exam Extremities: Absent cyanosis, clubbing or edema *Routine Skin Exam Skin: Present warm; Absent rash *Routine Neurological Exam Neurological: Present alert and oriented X3 Assessment and Plan *Assessment and plan (1) Small bowel obstruction: Status: Acute Category: Medical Code(s): K56.609 - Unspecified intestinal obstruction, unspecified as to partial versus complete obstruction (2) Abdominal pain: Status: Acute Qualifiers: Abdominal location: periumbilical Qualified Code(s): R10.33 - Periumbilical pain Category: Medical Code(s): R10.9 - Unspecified abdominal pain (3) Status post laparotomy with lysis of adhesions: Status: Acute Category: Surgical Code(s): Z98.890 - Other specified postprocedural states (4) Acute osteomyelitis of lumbar spine: Status: Acute Category: Medical Code(s): M46.26 - Osteomyelitis of vertebra, lumbar region (5) Hypertension: Status: Acute Qualifiers: Hypertension type: unspecified Qualified Code(s): I10 - Essential (primary) hypertension Category: Medical Code(s): I10 - Essential (primary) hypertension (6) Hyperlipidemia: Status: Acute Qualifiers: Hyperlipidemia type: unspecified Qualified Code(s): E78.5 - Hyperlipidemia, unspecified Category: Medical Code(s): E78.5 - Hyperlipidemia, unspecified (7) Hypothyroidism: Status: Chronic Qualifiers: Hypothyroidism type: acquired Qualified Code(s): E03.9 - Hypothyroidism, unspecified Category: Medical Code(s): E03.9 - Hypothyroidism, unspecified (8) COPD (chronic obstructive pulmonary disease): Status: Acute Qualifiers: COPD type: unspecified COPD Qualified Code(s): J44.9 - Chronic obstructive pulmonary disease, unspecified Category: Medical Code(s): J44.9 - Chronic obstructive pulmonary disease, unspecified (9) Biventricular ICD (implantable cardioverter-defibrillator) in place: Status: Acute Category: Surgical Code(s): Z95.810 - Presence of automatic (implantable) cardiac defibrillator Plan 83-year-old male with a 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 A CT scan revealed evidence of distended small bowel loops and mesenteric volvulus. patient underwent OR for surgical intervention. Acute abdominal pain likely secondary to SBO s/p laparotomy with lysis of adhesions Postop ileus Patient is made NPO NG tube has to be reinserted given worsening abdominal pain and distension, currently clamped, plan to remove NG tube today Abdomen is distended, he had BM today morning, passing gas Suspected acute OM of L-spine - Image concerning for discitis with endplate destruction, continue vancomycin IV, resume Zosyn, end date 01/09 today, discussed with pharmacy Stable chronic conditions: Hypertension hyperlipidemia hypothyroidism and COPD: Synthroid 100 mcg Entresto, bisoprolol Optimize O2 saturation, oxygen as needed, currently on 2 L for sats greater 90%. 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
[2024-01-10] MEDS: [UNRECOGNIZED DRUG - OTHER] IV (14:30)
[2024-01-10] MEDS: AMINO ACID 5% IV (14:30)
[2024-01-10] MEDS: DEX IV (14:30)
[2024-01-10 16:51] LABS: POC Glucose,Bedside 137 (70-110)
--- NOTE | 2024-01-10 19:05 | PC.NURSE ---
pt has overall had a good day. pt did have to be hooked back up to gravity this a.m. d/t abdominal distention. pt has had no complaints throughout shift. pt ambulated to bathroom with assistance 3 timess this shift. no new orders at this time. call light within reach. pt resting w/ eyes closed in chair.
[2024-01-10] MEDS: PANTOPRAZOLE 40MG VIAL 40 MG IV (21:01)
[2024-01-10] MEDS: SODIUM CHLORIDE 0.9% 10ML VIAL 10 ML IV (21:02)
[2024-01-10] MEDS: PRAVASTATIN 40MG TAB 40 MG PO (21:02)
[2024-01-10] MEDS: TAMSULOSIN 0.4MG CAPSULE 0.400000000000000022 MG PO (21:02)
[2024-01-10 21:18] LABS: POC Glucose,Bedside 128 (70-110)
[2024-01-11] VITALS (11 sets, daily range): BP systolic 100–122; BP diastolic 60–75; PULSE 67–96; RESP 18–20; TEMP 36.4–37.2; O2SAT 93–98; BMI 23.6
[2024-01-11] MEDS: AA 5 %/CALCIUM/LYTES/DEXT 20 % 1,000 ML 75 ML IV (03:44)
--- NOTE | 2024-01-11 05:06 | PC.NURSE ---
Pt is alert and oriented x4. Pt is tolerating TPN well, and NG tube remains on gravity drainage. Pt denies abd. pain and has not requested pain medication this shift. Pt received a bath and has ambulated to and from the BR this shift. Pt seems to tolerate ambulation well. Pt has had no other acute changes this shift to note.
[2024-01-11 05:43] LABS: POC Glucose,Bedside 133 (70-110)
[2024-01-11] MEDS: IPRATROPIUM/ALBUTEROL 3 ML NEB IH ×4 (06:05→23:53)
[2024-01-11] MEDS: FLUTICASONE/UMECLIDIN/VILANTER 100/62.5/25MCG INHALER 1 PUFF IH (06:10)
[2024-01-11] MEDS: LEVOTHYROXINE 175MCG (0.175MG) TAB 175 MCG PO (06:36)
--- NOTE | 2024-01-11 07:59 | EXP.ACUTE.PN ---
Subjective *Date: 01/11/24 *Time: 12:01 Interval history: Complaining of sore throat. Denies any nausea. States he is not really hungry since starting the TPN on Thursday. Passing gas regularly, last bowel movement yesterday. Stable on room air. Afebrile. Having some mild abdominal pain. Complains of more pain in his back than anything. Medical Exam Vital signs and Labs for Last 24 Hours: Vital Signs Temp Pulse Pulse Resp BP Pulse Ox O2 Del Method 01/11/24 07:40 97.9 F 84 20 100/60 L 94 L Room Air 01/11/24 06:52 Room Air 01/11/24 05:00 Room Air 01/11/24 04:00 98.1 F 75 18 122/63 96 Room Air 01/11/24 03:00 Room Air 01/11/24 01:00 Room Air 01/11/24 00:00 97.7 F 67 18 112/71 97 Room Air 01/10/24 23:00 Room Air 01/10/24 21:00 Room Air 01/10/24 20:00 Room Air 01/10/24 20:00 98.4 F 89 18 117/68 97 Room Air 01/10/24 18:39 Room Air 01/10/24 18:32 73 01/10/24 18:32 73 01/10/24 16:52 Room Air 01/10/24 16:00 97.5 F L 80 20 107/53 L 98 Room Air 01/10/24 14:45 Room Air 01/10/24 12:59 Room Air 01/10/24 11:46 97.7 F 77 19 110/71 97 Room Air 01/10/24 11:22 60 01/10/24 11:22 71 01/10/24 11:22 97 Room Air 01/10/24 11:00 Room Air 01/10/24 08:57 Room Air 01/10/24 08:00 Room Air Intake and Output 01/10/24 01/10/24 01/11/24 15:59 23:59 07:59 Intake Total 435 / 435 Output Total 175 / 1925 675 / 1925 250 / 250 Balance -175 / 351 -675 / 351 185 / 185 Intake: Intake, Oral Amount 60 / 60 Intake, Total IV Amount 375 / 375 Aa 5 %/Calcium/Lytes/Dext 20 % 375 / 375 1,000 ml @ 75 mls/hr IV . [id number] [facility] Rx#:[id number] Output: Output, Urine Amount 175 / 1925 675 / 1925 250 / 250 Other: Number of Unmeasured Voids 1 0 0 Number of Bowel Movements 1 Weight 74.888 kg Patient Weight 01/11/24 23:59 Weight 74.888 kg Laboratory Results - last 24 hr 01/10/24 10:49: POC Glucose 133 H 01/10/24 16:45: POC Glucose 137 H 01/10/24 21:00: POC Glucose 128 H 01/11/24 05:35: POC Glucose 133 H I & O for Labs for Last 24 Hours: Intake & Output 01/08/24 01/09/24 01/10/24 01/11/24 23:59 23:59 23:59 23:59 Intake Total 1949 / 1949 1329 / 2264 1841 / 2276 435 / 435 Output Total 1700 / 1700 1700 / 2250 1925 / 1925 250 / 250 Balance 249 / 249 -371 / 14 -84 / 351 185 / 185 Weight 70.942 kg 75.387 kg 74.389 kg 74.888 kg Constitutional: Present no acute distress, average body habitus, chronically ill appearing and cooperative Head: Present atraumatic and normocephalic ENT: Present normal exam Comment:: NG in left nare Respiratory: Present normal respiratory effort; Absent rhonchi, wheezes or crackles Cardiac: Present Reg Rate and Rhythm GI: Present soft, tenderness (Minimal) and normal bowel sounds; Absent distention, guarding or rebound Rectal (male): Present deferred (male): Present deferred Extremities: Present normal inspection and full ROM Skin: Present intact; Absent erythema Neuro: Present Grossly Intact, alert, awake, oriented x 3 and moves all extremities Assessment and Plan *Assessment and plan (1) Small bowel obstruction: Status: Acute Category: Medical Code(s): K56.609 - Unspecified intestinal obstruction, unspecified as to partial versus complete obstruction (2) Abdominal pain: Status: Acute Qualifiers: Abdominal location: periumbilical Qualified Code(s): R10.33 - Periumbilical pain Category: Medical Code(s): R10.9 - Unspecified abdominal pain (3) Status post laparotomy with lysis of adhesions: Status: Acute Category: Surgical Code(s): Z98.890 - Other specified postprocedural states (4) Acute osteomyelitis of lumbar spine: Status: Acute Category: Medical Code(s): M46.26 - Osteomyelitis of vertebra, lumbar region (5) Hypertension: Status: Acute Qualifiers: Hypertension type: unspecified Qualified Code(s): I10 - Essential (primary) hypertension Category: Medical Code(s): I10 - Essential (primary) hypertension (6) Hyperlipidemia: Status: Acute Qualifiers: Hyperlipidemia type: unspecified Qualified Code(s): E78.5 - Hyperlipidemia, unspecified Category: Medical Code(s): E78.5 - Hyperlipidemia, unspecified (7) Hypothyroidism: Status: Chronic Qualifiers: Hypothyroidism type: acquired Qualified Code(s): E03.9 - Hypothyroidism, unspecified Category: Medical Code(s): E03.9 - Hypothyroidism, unspecified (8) COPD (chronic obstructive pulmonary disease): Status: Acute Qualifiers: COPD type: unspecified COPD Qualified Code(s): J44.9 - Chronic obstructive pulmonary disease, unspecified Category: Medical Code(s): J44.9 - Chronic obstructive pulmonary disease, unspecified (9) Biventricular ICD (implantable cardioverter-defibrillator) in place: Status: Acute Category: Surgical Code(s): Z95.810 - Presence of automatic (implantable) cardiac defibrillator Plan 83-year-old male with a PMHx of discitis, chronic back pain, atrial fibrillation, BiV ICD, hypertension, lung mass, and colitis presenting to the emergency department for evaluation of nausea vomiting abdominal pain. A CT scan revealed evidence of distended small bowel loops and mesenteric volvulus. patient underwent OR for surgical intervention. Patient admitted to medicine thereafter. Having slow improvement in bowel function. NG replaced over the weekend. Passing gas and having bowel function signs clinically with abdominal sounds, flatus, imaging with contrast showing no obstruction. Discussed case with surgery today, will remove NG this morning. Okay to have sips and chips. Continue TPN. Continues to require inpatient management. Problems addressed as follows: Acute abdominal pain likely secondary to SBO s/p laparotomy with lysis of adhesions Postop ileus - Discussed case with surgery this morning. Sips and chips. Will remove NG. Slow advancement of diet -Continue hydrocodone every 8 hours as needed. 5 mg/325 mg. Continue Tylenol 650 every 4 hours as needed. Initiate Toradol 15 mg every 6 hours as needed for pain. Necessitating close monitoring for toxicity risk - Zofran for nausea as needed - White cell count normal at 9.6. Electrolytes normal sodium 132, potassium 4.6, phosphorus 3.0, magnesium 1.8. -Continuing TPN, monitoring electrolytes and lipids closely. -I have ordered repeat CBC, CMP, magnesium, phosphorus, lipid panel for the morning. Suspected acute OM of L-spine - Image concerning for discitis with endplate destruction. Continue vancomycin IV, resume Zosyn. Attempting to obtain records from [place]. Began treatment at the end of October. Completed IV antibiotics yesterday. -CRP marginally elevated 11.3. Stable chronic conditions: Hypertension hyperlipidemia hypothyroidism and COPD: Synthroid 100 mcg Entresto, bisoprolol Optimize O2 saturation, oxygen as needed, currently on 2 L for sats greater 90%. 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
[2024-01-11] MEDS: POTASSIUM CHLORIDE 20MEQ/15ML UDC 20 MEQ PO ×3 (08:27→20:18)
[2024-01-11] MEDS: SPIRONOLACTONE 25MG TABLET 12.5 MG PO (08:28)
[2024-01-11] MEDS: CARVEDILOL 12.5MG TABLET 12.5 MG PO ×2 (08:28→20:20)
[2024-01-11] MEDS: SACUBITRIL/VALSARTAN 24-26MG TABLET 1 EACH PO ×2 (08:28→20:20)
[2024-01-11] MEDS: GABAPENTIN 100MG CAPSULE 100 MG PO ×2 (08:28→20:19)
[2024-01-11] MEDS: APIXABAN 5MG TABLET 5 MG PO ×2 (08:28→20:20)
[2024-01-11] MEDS: HYDROCODONE/APAP 5/325 MG TABLET 1 TAB PO ×2 (08:33→20:19)
[2024-01-11 10:18] LABS: Chloride 104 mmol/L (98-107); Potassium 4.6 mmoL/L (3.5-5.1); Sodium 132 mmol/L (136-145)
[2024-01-11 10:20] LABS: Alanine Aminotransferase 47 U/L (12-78); Alkaline Phosphatase 221 U/L (38-126); Aspartate Amino Transferase 53 U/L (17-59); Bilirubin,Total 0.4 mg/dl (0.2-1.3); Blood Urea Nitrogen 21 mg/dl (9-20); Creatinine Clearance Estimated 58 mL/min (50-200); Estimated Glomerular Filt Rate 128 ml/min (>60); GFR (African American) 155 ML/MIN (>60)
[2024-01-11 10:21] LABS: Albumin Level 2.6 g/dl (3.5-5.0); Albumin/Globulin Ratio 1.1 (1.1-1.8); Anion Gap 7.6 mEq/L (5-15); Calcium 8.3 mg/dl (8.4-10.2); Carbon Dioxide 25 mmol/L (22.0-30.0); Globulin 2.3 g/dL (1.3-3.2); Glucose 119 mg/dl (74-100); Magnesium 1.8 mg/dl (1.6-2.3); Total Protein,Serum 4.9 g/dl (6.3-8.2)
[2024-01-11 10:27] LABS: C-Reactive Protein 11.3 mg/L (0-4)
[2024-01-11 10:34] LABS: Basophils # 0.1 K/mm3 (0-0.2); Basophils % 0.7 % (0.1-2.0); Eosinophils # 0.4 K/mm3 (0.0-0.4); Eosinophils % 3.9 % (0.1-12.0); Hematocrit 32.9 % (42.0-52.0); Hemoglobin 11.4 g/dL (14.1-18.0); Lymphocytes # 2.1 K/mm3 (0.7-4.5); Lymphocytes % 21.4 % (10-50); Mean Corpuscular HGB Conc 34.7 g/dL (31.8-35.4); Mean Corpuscular Hemoglobin 34.2 pg (27.0-31.2); Mean Corpuscular Volume 98.6 fl (80-94); Mean Platelet Volume 8.6 fl (7.4-10.4); Monocytes # 0.6 K/mm3 (0.1-1.0); Monocytes % 6.1 % (1.7-9.3); Neutrophils # 6.5 K/mm3 (1.8-7.8); Neutrophils % 67.9 % (37.0-80.0); Platelet Count 240 K/mm3 (142-424); Red Blood Count 3.34 M/mm3 (4.60-6.20); Red Cell Distribution Width 15.5 % (11.5-17.5); White Blood Count 9.6 K/mm3 (4.8-10.8)
[2024-01-11 10:38] LABS: POC Glucose,Bedside 118 (70-110)
[2024-01-11] MEDS: PHENOL THROAT SPRAY 177 ML BOTTLE MM (11:26)
--- NOTE | 2024-01-11 11:57 | EXP.SURG.PN ---
Subjective Narrative: Patient's NG tube was placed to gravity over the weekend which she had tolerated for some time without issue. However yesterday was placed back to suction due to increasing distention. He has been passing gas and had some bowel movements. Exam Data for Last 24 hours Vital signs and Labs for Last 24 Hours: Temp Pulse Resp BP Pulse Ox O2 Del Method O2 Flow Rate 97.9 F 84 20 100/60 L 94 L Room Air 0 01/11/24 07:40 01/11/24 07:40 01/11/24 07:40 01/11/24 07:40 01/11/24 07:40 01/11/24 11:00 01/04/24 20:00 FiO2 28 12/29/23 19:46 Laboratory Results - last 24 hr 01/10/24 16:45: POC Glucose 137 H 01/10/24 21:00: POC Glucose 128 H 01/11/24 05:35: POC Glucose 133 H 01/11/24 10:00: WBC 9.6, RBC 3.34 L, Hgb 11.4 L, Hct 32.9 L, MCV 98.6 H, MCH 34.2 H, MCHC 34.7, RDW 15.5, Plt Count 240, MPV 8.6, Neut % (Auto) 67.9, Lymph % (Auto) 21.4, [place] % (Auto) 6.1, Eos % (Auto) 3.9, Baso % (Auto) 0.7, Neut # (Auto) 6.5, Lymph # (Auto) 2.1, [place] # (Auto) 0.6, Eos # (Auto) 0.4, Baso # (Auto) 0.1, Sodium 132 L, Potassium 4.6 D, Chloride 104, Carbon Dioxide 25, Anion Gap 7.6, BUN 21 H, Creatinine 0.60 L, Estimated Creat Clear 58, Estimated GFR 128, Est GFR ( Amer) 155, Glucose 119 H, Calcium 8.3 L, Phosphorus 3.0, Magnesium 1.8, Total Bilirubin 0.4, AST 53, ALT 47, Alkaline Phosphatase 221 H, C-Reactive Protein 11.3 H, Total Protein 4.9 L, Albumin 2.6 L, Globulin 2.3, Albumin/Globulin Ratio 1.1 01/11/24 10:30: POC Glucose 118 H I & O for Last 24 hours: Intake & Output 01/08/24 01/09/24 01/10/24 01/11/24 11:59 11:59 11:59 11:59 Intake Total 887 / 887 2391 / 2391 1940 / 1940 435 / 435 Output Total 1949 / 1949 1450 / 1450 2049 1125 / 1125 Balance -1063 / -1063 941 / 941 -109 / -109 -690 / -690 Weight 156 lb 6.4 oz 166 lb 3.2 oz 164 lb 165 lb 1.6 oz *Routine Abdominal Exam Comments: Abdomen is somewhat distended. Progress Note: A&P Assessment and plan (1) Small bowel obstruction: Status: Acute Assessment and plan: Attempt to remove the nasogastric tube. Limit narcotic pain medication. Very slow advancement with limiting to ice chips at this time. (2) Abdominal pain: Status: Acute (3) Status post laparotomy with lysis of adhesions: Status: Acute (4) Acute osteomyelitis of lumbar spine: Status: Acute (5) Hypertension: Status: Acute (6) Hyperlipidemia: Status: Acute (7) Hypothyroidism: Status: Chronic (8) COPD (chronic obstructive pulmonary disease): Status: Acute (9) Biventricular ICD (implantable cardioverter-defibrillator) in place: Status: Acute
[2024-01-11] MEDS: MAGNESIUM SULFATE IN WATER 2 GM/50 ML PIGGYBACK IV (12:14)
--- NOTE | 2024-01-11 12:15 | DIET.NUTRFU ---
Reviewed with IDT in rounds, NG pulled and start sips and chips. Had BM x2 01/09. Abdomen was noted distended last on 01/09. Tolerating TPN, lipids ordered to review. Labs 01/12: BUN 21H, Cr 0.6L, BS 119H, Na 132L, K 4.6-will hold KCL-reviewed with pharmacy. Wt is stable at 74.8kg. Good urine out 01/09 at 1925ml and 600ml today. Will continue TPN until able to upgrade diet.
[2024-01-11 12:18] LABS: Erythrocyte Sedimentation Rate 26 mm/hr (0-20)
--- NOTE | 2024-01-11 12:45 | PC.NURSE ---
pt ambulated down the hallway and back with x1 assistance. pt had no complaints during. no new orders at this time.
[2024-01-11] MEDS: FAT EMULSIONS 250 ML 60 ML IV (13:55)
--- NOTE | 2024-01-11 14:29 | PC.NURSE ---
pt has overall had a good shift. d/c NG tube this a.m. also ordered throat spray this a.m. d/t pt c/o throat pain. no new orders at this time. pt has had no other complaints throughout this shift. call light within reach and patient is resting in chair.
[2024-01-11] MEDS: DEX IV (15:58)
[2024-01-11] MEDS: AMINO ACID 5% IV (15:58)
[2024-01-11] MEDS: [UNRECOGNIZED DRUG - OTHER] IV (15:58)
[2024-01-11 16:18] LABS: POC Glucose,Bedside 110 (70-110)
--- NOTE | 2024-01-11 16:44 | PC.NURSE ---
pt was c/o numbness in both pinky fingers . made aware. no new orders at this time.
[2024-01-11] MEDS: PANTOPRAZOLE 40MG VIAL 40 MG IV (20:18)
[2024-01-11] MEDS: TAMSULOSIN 0.4MG CAPSULE 0.400000000000000022 MG PO (20:19)
[2024-01-11] MEDS: PRAVASTATIN 40MG TAB 40 MG PO (20:20)
[2024-01-11 20:40] LABS: POC Glucose,Bedside 129 (70-110)
--- NOTE | 2024-01-11 23:40 | PC.NURSE ---
Notified by Agrican at approximately 2330 patients blood pressure was 94/50 in left arm. I repositioned patient and retook blood pressure twice. Left arm was 104/54 and right lower arm was 106/53. Patient states he is feeling fine and no lightheadedness/dizziness, blurred vision, weakness or confusion reported. Patient states his blood pressure occasionally drops low and comes right back up. Will continue to monitor overnight.
[2024-01-12] VITALS (8 sets, daily range): BP systolic 94–111; BP diastolic 46–70; PULSE 76–89; RESP 18–22; TEMP 36.5–37.1; O2SAT 93–99; BMI 23.3
--- NOTE | 2024-01-12 04:48 | PC.NURSE ---
Patient alert and oriented x4 throughout shift. Tolerating room air well. Has ambulated the halls through shift and done well with walker and standby assist. Has not complained of any abdominal pain, but did complain of back pain that he rated an 8/10 earlier in the shift. Bowel sounds active. Patient has not rested much this shift. Tolerating TPN well. Call light within reach.
[2024-01-12 05:58] LABS: POC Glucose,Bedside 123 (70-110)
[2024-01-12] MEDS: AA 5 %/CALCIUM/LYTES/DEXT 20 % 1,000 ML 75 ML IV (06:01)
[2024-01-12] MEDS: LEVOTHYROXINE 175MCG (0.175MG) TAB 175 MCG PO (06:09)
[2024-01-12 06:18] LABS: Basophils # 0.1 K/mm3 (0-0.2); Chloride 107 mmol/L (98-107); Eosinophils # 0.3 K/mm3 (0.0-0.4); Eosinophils % 4.4 % (0.1-12.0); Hematocrit 32.9 % (42.0-52.0); Hemoglobin 11.2 g/dL (14.1-18.0); Lymphocytes % 26.8 % (10-50); Mean Corpuscular HGB Conc 33.9 g/dL (31.8-35.4); Mean Corpuscular Hemoglobin 32.8 pg (27.0-31.2); Mean Platelet Volume 8.5 fl (7.4-10.4); Monocytes # 0.6 K/mm3 (0.1-1.0); Monocytes % 8.4 % (1.7-9.3); Neutrophils # 4.3 K/mm3 (1.8-7.8); Neutrophils % 59.4 % (37.0-80.0); Platelet Count 211 K/mm3 (142-424); Potassium 3.8 mmoL/L (3.5-5.1); Red Blood Count 3.39 M/mm3 (4.60-6.20); Red Cell Distribution Width 15.6 % (11.5-17.5); Sodium 133 mmol/L (136-145); White Blood Count 7.3 K/mm3 (4.8-10.8)
[2024-01-12] MEDS: IPRATROPIUM/ALBUTEROL 3 ML NEB IH ×4 (06:19→23:39)
[2024-01-12 06:20] LABS: Alanine Aminotransferase 40 U/L (12-78); Aspartate Amino Transferase 40 U/L (17-59); Blood Urea Nitrogen 22 mg/dl (9-20); Chol/HDL Ratio 3.1 (1-3.5); Cholesterol 93 mg/dl (140-200); Creatinine Clearance Estimated 58 mL/min (50-200); Estimated Glomerular Filt Rate 128 ml/min (>60); GFR (African American) 155 ML/MIN (>60); HDL Cholesterol 30 mg/dl (40-60); Magnesium 1.8 mg/dl (1.6-2.3); Phosphorous 3.2 mg/dl (2.5-4.5); Triglycerides 72 mg/dl (30-150); VLDL Cholesterol 14 mg/dL (0-40)
[2024-01-12] MEDS: FLUTICASONE/UMECLIDIN/VILANTER 100/62.5/25MCG INHALER 1 PUFF IH (06:20)
[2024-01-12 06:21] LABS: Albumin Level 2.5 g/dl (3.5-5.0); Albumin/Globulin Ratio 1.1 (1.1-1.8); Alkaline Phosphatase 206 U/L (38-126); Anion Gap 4.8 mEq/L (5-15); Bilirubin,Total 0.2 mg/dl (0.2-1.3); Calcium 8.3 mg/dl (8.4-10.2); Carbon Dioxide 25 mmol/L (22.0-30.0); Globulin 2.3 g/dL (1.3-3.2); Glucose 128 mg/dl (74-100); Total Protein,Serum 4.8 g/dl (6.3-8.2)
[2024-01-12 06:31] LABS: Direct LDL Cholesterol 49.44 mg/dL (100-129)
--- NOTE | 2024-01-12 07:42 | EXP.SURG.PN ---
Subjective Narrative: Patient states that he feels better. Denies nausea. Exam Data for Last 24 hours Vital signs and Labs for Last 24 Hours: Temp Pulse Resp BP Pulse Ox O2 Del Method O2 Flow Rate 97.8 F 76 18 101/65 L 97 Room Air 0 01/12/24 07:25 01/12/24 07:25 01/12/24 07:25 01/12/24 07:25 01/12/24 07:25 01/12/24 07:25 01/04/24 20:00 FiO2 28 12/29/23 19:46 Laboratory Results - last 24 hr 01/11/24 10:00: WBC 9.6, RBC 3.34 L, Hgb 11.4 L, Hct 32.9 L, MCV 98.6 H, MCH 34.2 H, MCHC 34.7, RDW 15.5, Plt Count 240, MPV 8.6, Neut % (Auto) 67.9, Lymph % (Auto) 21.4, [place] % (Auto) 6.1, Eos % (Auto) 3.9, Baso % (Auto) 0.7, Neut # (Auto) 6.5, Lymph # (Auto) 2.1, [place] # (Auto) 0.6, Eos # (Auto) 0.4, Baso # (Auto) 0.1, ESR 26 H, Sodium 132 L, Potassium 4.6 D, Chloride 104, Carbon Dioxide 25, Anion Gap 7.6, BUN 21 H, Creatinine 0.60 L, Estimated Creat Clear 58, Estimated GFR 128, Est GFR ( Amer) 155, Glucose 119 H, Calcium 8.3 L, Phosphorus 3.0, Magnesium 1.8, Total Bilirubin 0.4, AST 53, ALT 47, Alkaline Phosphatase 221 H, C-Reactive Protein 11.3 H, Total Protein 4.9 L, Albumin 2.6 L, Globulin 2.3, Albumin/Globulin Ratio 1.1 01/11/24 10:30: POC Glucose 118 H 01/11/24 16:09: POC Glucose 110 01/11/24 20:28: POC Glucose 129 H 01/12/24 05:39: POC Glucose 123 H 01/12/24 06:00: WBC 7.3, RBC 3.39 L, Hgb 11.2 L, Hct 32.9 L, MCV 97.0 H, MCH 32.8 H, MCHC 33.9, RDW 15.6, Plt Count 211, MPV 8.5, Neut % (Auto) 59.4, Lymph % (Auto) 26.8, [place] % (Auto) 8.4, Eos % (Auto) 4.4, Baso % (Auto) 1.0, Neut # (Auto) 4.3, Lymph # (Auto) 2.0, [place] # (Auto) 0.6, Eos # (Auto) 0.3, Baso # (Auto) 0.1, Sodium 133 L, Potassium 3.8, Chloride 107, Carbon Dioxide 25, Anion Gap 4.8 L, BUN 22 H, Creatinine 0.60 L, Estimated Creat Clear 58, Estimated GFR 128, Est GFR ( Amer) 155, Glucose 128 H, Calcium 8.3 L, Phosphorus 3.2, Magnesium 1.8, Total Bilirubin 0.2, AST 40, ALT 40, Alkaline Phosphatase 206 H, Total Protein 4.8 L, Albumin 2.5 L, Globulin 2.3, Albumin/Globulin Ratio 1.1, Triglycerides 72, Cholesterol 93 L, LDL Cholesterol Direct 49.44 L, VLDL Cholesterol 14, HDL Cholesterol 30 L, Cholesterol/HDL Ratio 3.1 I & O for Last 24 hours: Intake & Output 01/09/24 01/10/24 01/11/24 01/12/24 11:59 11:59 11:59 11:59 Intake Total 2391 / 2391 1941 / 1941 435 / 435 1587 / 1587 Output Total 1450 / 1450 2049 / 2049 1125 / 1275 2500 / 2500 Balance 941 / 941 -109 / -109 -690 / -840 -913 / -913 Weight 166 lb 3.2 oz 164 lb 165 lb 1.6 oz 163 lb 6.4 oz *Routine Abdominal Exam Comments: Abdomen is softer, less distended. Hernia soft and reducible. Progress Note: A&P Assessment and plan (1) Small bowel obstruction: Status: Acute Assessment and plan: Will try initiating and limited clear liquids. (2) Abdominal pain: Status: Acute (3) Status post laparotomy with lysis of adhesions: Status: Acute (4) Acute osteomyelitis of lumbar spine: Status: Acute (5) Hypertension: Status: Acute (6) Hyperlipidemia: Status: Acute (7) Hypothyroidism: Status: Chronic (8) COPD (chronic obstructive pulmonary disease): Status: Acute (9) Biventricular ICD (implantable cardioverter-defibrillator) in place: Status: Acute
[2024-01-12] MEDS: POTASSIUM CHLORIDE 20MEQ/15ML UDC 20 MEQ PO ×3 (08:11→21:13)
[2024-01-12] MEDS: GABAPENTIN 100MG CAPSULE 100 MG PO ×2 (08:11→21:13)
[2024-01-12] MEDS: SACUBITRIL/VALSARTAN 24-26MG TABLET 1 EACH PO ×2 (08:11→21:13)
[2024-01-12] MEDS: CARVEDILOL 12.5MG TABLET 12.5 MG PO ×2 (08:11→21:13)
[2024-01-12] MEDS: APIXABAN 5MG TABLET 5 MG PO ×2 (08:11→21:13)
[2024-01-12] MEDS: MAGNESIUM SULFATE IN WATER 2 GM/50 ML PIGGYBACK IV (09:26)
[2024-01-12] MEDS: KCl 10mEq/100ml 100 ML 100 MEQ IV ×2 (09:26→10:41)
[2024-01-12 11:00] LABS: POC Glucose,Bedside 136 (70-110)
--- NOTE | 2024-01-12 11:19 | DIET.NUTRFU ---
Spoke to pharmacy and reviewed labs and TPN dose. Na 133L, BUN 22H, Cr 0.60L, BS 123-136H, cholesterol 93L. Per protocol K and Mg were replaced. Clear liquids were ordered but only consumed a Popsicle. Continues to have BM 7 with good urine output 1875ml 01/11/24. TPN will continue to provide caloric needs until diet is advanced and tolerated. He plans to return to [facility] upon discharge
--- NOTE | 2024-01-12 11:24 | EXP.ACUTE.PN ---
Subjective *Date: 01/12/24 *Time: 15:06 Interval history: No complaint of nausea, vomiting, belching. Still having flatus. No bowel movement today. Denies any significant abdominal pain. Tolerating clear liquids. Working with therapy. Afebrile. On room air. Medical Exam Vital signs and Labs for Last 24 Hours: Vital Signs Temp Pulse Pulse Resp BP Pulse Ox O2 Del Method 01/12/24 11:00 Room Air 01/12/24 09:00 Room Air 01/12/24 08:00 Room Air 01/12/24 07:25 97.8 F 76 18 101/65 L 97 Room Air 01/12/24 06:45 Room Air 01/12/24 06:20 77 01/12/24 06:20 77 01/12/24 06:20 94 L Room Air 01/12/24 05:00 Room Air 01/12/24 04:00 97.9 F 83 18 96/61 L 96 Room Air 01/12/24 02:48 Room Air 01/12/24 00:57 Room Air 01/12/24 00:00 98.2 F 77 18 94/50 L 96 Room Air 01/11/24 23:53 82 01/11/24 23:53 80 01/11/24 22:55 Room Air 01/11/24 21:20 Room Air 01/11/24 20:20 96 Room Air 01/11/24 19:52 98.9 F 83 18 101/73 L 96 Room Air 01/11/24 19:00 Room Air 01/11/24 18:32 72 01/11/24 18:32 70 01/11/24 18:32 96 Room Air 01/11/24 16:43 Room Air 01/11/24 16:00 97.6 F 72 18 105/69 L 97 Room Air 01/11/24 14:37 Room Air 01/11/24 13:28 69 01/11/24 13:28 67 01/11/24 12:46 Room Air 01/11/24 12:00 98 F 72 18 119/75 98 Room Air Intake and Output 01/11/24 01/12/24 01/12/24 23:59 07:59 15:59 Intake Total 620 / 1175 847 / 847 Output Total 1275 / 2050 1075 / 1225 150 / 1225 Balance -655 / -875 -228 / -378 -150 / -378 Intake: Intake, Total IV Amount 620 / 995 847 / 847 Aa 5 %/Calcium/Lytes/Dext 20 % 620 / 620 788 / 788 1,000 ml @ 75 mls/hr IV . [id number] Rx#:[id number] Aa 5 %/Calcium/Lytes/Dext 20 % 59 / 59 1,000 ml @ 75 mls/hr IV . [id number] [facility] Rx#:[id number] Output: Output, Urine Amount 1275 / 2050 1075 / 1225 150 / 1225 Other: Number of Voids 1 1 Number of Unmeasured Voids 0 1 Number of Bowel Movements 1 Weight 74.117 kg Patient Weight 01/12/24 23:59 Weight 74.117 kg Laboratory Results - last 24 hr 01/11/24 10:00: ESR 26 H 01/11/24 16:09: POC Glucose 110 01/11/24 20:28: POC Glucose 129 H 01/12/24 05:39: POC Glucose 123 H 01/12/24 06:00: WBC 7.3, RBC 3.39 L, Hgb 11.2 L, Hct 32.9 L, MCV 97.0 H, MCH 32.8 H, MCHC 33.9, RDW 15.6, Plt Count 211, MPV 8.5, Neut % (Auto) 59.4, Lymph % (Auto) 26.8, [place] % (Auto) 8.4, Eos % (Auto) 4.4, Baso % (Auto) 1.0, Neut # (Auto) 4.3, Lymph # (Auto) 2.0, [place] # (Auto) 0.6, Eos # (Auto) 0.3, Baso # (Auto) 0.1, Sodium 133 L, Potassium 3.8, Chloride 107, Carbon Dioxide 25, Anion Gap 4.8 L, BUN 22 H, Creatinine 0.60 L, Estimated Creat Clear 58, Estimated GFR 128, Est GFR ( Amer) 155, Glucose 128 H, Calcium 8.3 L, Phosphorus 3.2, Magnesium 1.8, Total Bilirubin 0.2, AST 40, ALT 40, Alkaline Phosphatase 206 H, Total Protein 4.8 L, Albumin 2.5 L, Globulin 2.3, Albumin/Globulin Ratio 1.1, Triglycerides 72, Cholesterol 93 L, LDL Cholesterol Direct 49.44 L, VLDL Cholesterol 14, HDL Cholesterol 30 L, Cholesterol/HDL Ratio 3.1 01/12/24 10:45: POC Glucose 136 H I & O for Labs for Last 24 Hours: Intake & Output 01/09/24 01/10/24 01/11/24 01/12/24 23:59 23:59 23:59 23:59 Intake Total 1329 / 2264 1841 / 2276 1175 / 1175 847 / 847 Output Total 1700 / 2250 1925 / 1925 187 / 2049 1225 / 1225 Balance -371 / 14 -84 / 351 -700 / -875 -378 / -378 Weight 75.387 kg 74.389 kg 74.888 kg 74.117 kg Constitutional: Present no acute distress, average body habitus, chronically ill appearing and cooperative Head: Present atraumatic and normocephalic ENT: Present normal exam Respiratory: Present normal respiratory effort; Absent rhonchi, wheezes or crackles Cardiac: Present Reg Rate and Rhythm GI: Present soft, tenderness (Minimal) and normal bowel sounds; Absent distention, guarding or rebound Rectal (male): Present deferred (male): Present deferred Extremities: Present normal inspection and full ROM Skin: Present intact; Absent erythema Neuro: Present Grossly Intact, alert, awake, oriented x 3 and moves all extremities Assessment and Plan *Assessment and plan (1) Small bowel obstruction: Status: Acute Category: Medical Code(s): K56.609 - Unspecified intestinal obstruction, unspecified as to partial versus complete obstruction (2) Abdominal pain: Status: Acute Qualifiers: Abdominal location: periumbilical Qualified Code(s): R10.33 - Periumbilical pain Category: Medical Code(s): R10.9 - Unspecified abdominal pain (3) Status post laparotomy with lysis of adhesions: Status: Acute Category: Surgical Code(s): Z98.890 - Other specified postprocedural states (4) Acute osteomyelitis of lumbar spine: Status: Acute Category: Medical Code(s): M46.26 - Osteomyelitis of vertebra, lumbar region (5) Hypertension: Status: Acute Qualifiers: Hypertension type: unspecified Qualified Code(s): I10 - Essential (primary) hypertension Category: Medical Code(s): I10 - Essential (primary) hypertension (6) Hyperlipidemia: Status: Acute Qualifiers: Hyperlipidemia type: unspecified Qualified Code(s): E78.5 - Hyperlipidemia, unspecified Category: Medical Code(s): E78.5 - Hyperlipidemia, unspecified (7) Hypothyroidism: Status: Chronic Qualifiers: Hypothyroidism type: acquired Qualified Code(s): E03.9 - Hypothyroidism, unspecified Category: Medical Code(s): E03.9 - Hypothyroidism, unspecified (8) COPD (chronic obstructive pulmonary disease): Status: Acute Qualifiers: COPD type: unspecified COPD Qualified Code(s): J44.9 - Chronic obstructive pulmonary disease, unspecified Category: Medical Code(s): J44.9 - Chronic obstructive pulmonary disease, unspecified (9) Biventricular ICD (implantable cardioverter-defibrillator) in place: Status: Acute Category: Surgical Code(s): Z95.810 - Presence of automatic (implantable) cardiac defibrillator Plan 83-year-old male with a PMHx of discitis, chronic back pain, atrial fibrillation, BiV ICD, hypertension, lung mass, and colitis presenting to the emergency department for evaluation of nausea vomiting abdominal pain. A CT scan revealed evidence of distended small bowel loops and mesenteric volvulus. patient underwent OR for surgical intervention. Patient admitted to medicine thereafter. Having slow improvement in bowel function. NG removed yesterday. Tolerating well. Clear liquid advancement today. Continue TPN. Continues to require inpatient management. Problems addressed as follows: Acute abdominal pain likely secondary to SBO s/p laparotomy with lysis of adhesions Postop ileus - Discussed case with surgery this morning, reviewed their note. Will advance to clear liquid diet. Close monitoring of abdominal exam for discomfort. -Continue hydrocodone every 8 hours as needed. 5 mg/325 mg. Continue Tylenol 650 every 4 hours as needed. Toradol 15 mg every 6 hours as needed for pain. Necessitating close monitoring for toxicity risk - Zofran for nausea as needed - White cell count normal at 7.3, hemoglobin stable at 11.2. Sodium 133, chloride 107, magnesium 1.8, potassium 3.8. Phosphorus 3.2. -Continuing TPN, monitoring electrolytes and lipids closely. -Triglycerides 72, cholesterol 93 -I have ordered repeat CBC, CMP, magnesium, phosphorus, lipid panel for the morning. Suspected acute OM of L-spine - Image concerning for discitis with endplate destruction. Completed course of vancomycin and Zosyn on 01/09. -Repeat CRP ordered for the morning. 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
[2024-01-12] MEDS: FAT EMULSIONS 250 ML 60 ML IV (13:04)
[2024-01-12] MEDS: [UNRECOGNIZED DRUG - OTHER] IV (16:29)
[2024-01-12] MEDS: DEX IV (16:29)
[2024-01-12] MEDS: AMINO ACID 5% IV (16:29)
[2024-01-12 16:44] LABS: POC Glucose,Bedside 105 (70-110)
--- NOTE | 2024-01-12 17:21 | PC.NURSE ---
pt has overall had a good day. pt has not c/o abdominal pain. abdomen has been soft and nontender. pt ambulated in room and in the shin today. pt's diet was advanced to clear liquids. pt has been tolerating oral intake well. no new orders at this time. call light within reach.
[2024-01-12 21:00] LABS: POC Glucose,Bedside 129 (70-110)
[2024-01-12] MEDS: PANTOPRAZOLE 40MG VIAL 40 MG IV (21:13)
[2024-01-12] MEDS: TAMSULOSIN 0.4MG CAPSULE 0.400000000000000022 MG PO (21:13)
[2024-01-12] MEDS: PRAVASTATIN 40MG TAB 40 MG PO (21:13)
[2024-01-13] VITALS (9 sets, daily range): BP systolic 90–104; BP diastolic 50–70; PULSE 79–95; RESP 16–20; TEMP 36.4–36.9; O2SAT 94–97; BMI 22.6
[2024-01-13] MEDS: PHENOL THROAT SPRAY 177 ML BOTTLE MM (02:14)
[2024-01-13] MEDS: AA 5 %/CALCIUM/LYTES/DEXT 20 % 1,000 ML 75 ML IV (05:57)
[2024-01-13 06:00] LABS: POC Glucose,Bedside 146 (70-110)
[2024-01-13] MEDS: LEVOTHYROXINE 175MCG (0.175MG) TAB 175 MCG PO (06:00)
[2024-01-13 06:06] LABS: Magnesium 2.1 mg/dl (1.6-2.3)
[2024-01-13] MEDS: IPRATROPIUM/ALBUTEROL 3 ML NEB IH ×3 (06:10→18:41)
[2024-01-13] MEDS: FLUTICASONE/UMECLIDIN/VILANTER 100/62.5/25MCG INHALER 1 PUFF IH (06:10)
[2024-01-13 06:11] LABS: C-Reactive Protein 13.8 mg/L (0-4)
[2024-01-13 06:47] LABS: Chloride 107 mmol/L (98-107); Potassium 4.2 mmoL/L (3.5-5.1); Sodium 132 mmol/L (136-145)
--- NOTE | 2024-01-13 06:49 | EXP.SURG.PN ---
Subjective Narrative: Patient states he is doing well. Taking clear liquid diet without issue. Denies abdominal pain or vomiting. Exam Data for Last 24 hours Vital signs and Labs for Last 24 Hours: Temp Pulse Resp BP Pulse Ox O2 Del Method O2 Flow Rate 97.5 F L 79 18 98/57 L 95 Room Air 0 01/13/24 04:00 01/13/24 06:10 01/13/24 04:00 01/13/24 04:00 01/13/24 06:10 01/13/24 06:42 01/04/24 20:00 FiO2 28 12/29/23 19:46 Laboratory Results - last 24 hr 01/12/24 10:45: POC Glucose 136 H 01/12/24 16:30: POC Glucose 105 01/12/24 20:50: POC Glucose 129 H 01/13/24 05:45: WBC 7.5, RBC 3.04 L, Hgb 10.0 L D, Hct 34.6 L, MCV 114.0 H, MCH 33.1 H, MCHC 29.0 L, RDW 15.3, Plt Count 215, MPV 9.3, Neut % (Auto) 61.9, Lymph % (Auto) 27.5, [place] % (Auto) 5.7, Eos % (Auto) 3.9, Baso % (Auto) 1.0, Neut # (Auto) 4.7, Lymph # (Auto) 2.1, [place] # (Auto) 0.4, Eos # (Auto) 0.3, Baso # (Auto) 0.1, Magnesium 2.1 D, C-Reactive Protein 13.8 H 01/13/24 05:52: POC Glucose 146 H I & O for Last 24 hours: Intake & Output 01/10/24 01/11/24 01/12/24 01/13/24 11:59 11:59 11:59 11:59 Intake Total 1940 / 1940 435 / 435 1587 / 1587 1061 / 1061 Output Total 2049 1125 / 1275 2650 / 2750 2225 / 2225 Balance -109 / -109 -690 / -840 -1063 / -1163 -1164 / -1164 Weight 164 lb 165 lb 1.6 oz 163 lb 6.4 oz 158 lb 1.6 oz *Routine Abdominal Exam Abdominal: Present soft; Absent tenderness Progress Note: A&P Assessment and plan (1) Small bowel obstruction: Status: Acute Assessment and plan: Carefully advance diet. (2) Abdominal pain: Status: Acute (3) Status post laparotomy with lysis of adhesions: Status: Acute (4) Acute osteomyelitis of lumbar spine: Status: Acute (5) Hypertension: Status: Acute (6) Hyperlipidemia: Status: Acute (7) Hypothyroidism: Status: Chronic (8) COPD (chronic obstructive pulmonary disease): Status: Acute (9) Biventricular ICD (implantable cardioverter-defibrillator) in place: Status: Acute
[2024-01-13 06:50] LABS: Alanine Aminotransferase 37 U/L (12-78); Albumin Level 2.6 g/dl (3.5-5.0); Alkaline Phosphatase 216 U/L (38-126); Anion Gap 5.2 mEq/L (5-15); Aspartate Amino Transferase 40 U/L (17-59); Bilirubin,Total 0.4 mg/dl (0.2-1.3); Blood Urea Nitrogen 23 mg/dl (9-20); Carbon Dioxide 24 mmol/L (22.0-30.0); Creatinine Clearance Estimated 56 mL/min (50-200); Estimated Glomerular Filt Rate 128 ml/min (>60); GFR (African American) 155 ML/MIN (>60); Globulin 2.5 g/dL (1.3-3.2); Total Protein,Serum 5.1 g/dl (6.3-8.2)
[2024-01-13 06:51] LABS: Calcium 8.2 mg/dl (8.4-10.2); Glucose 126 mg/dl (74-100)
[2024-01-13 07:14] LABS: Basophils % 0.5 % (0.1-2.0); Eosinophils # 0.3 K/mm3 (0.0-0.4); Eosinophils % 3.5 % (0.1-12.0); Hematocrit 33.5 % (42.0-52.0); Hemoglobin 10.7 g/dL (14.1-18.0); Lymphocytes # 2.3 K/mm3 (0.7-4.5); Lymphocytes % 28.6 % (10-50); Mean Corpuscular HGB Conc 32.1 g/dL (31.8-35.4); Mean Corpuscular Volume 99.9 fl (80-94); Mean Platelet Volume 9.2 fl (7.4-10.4); Monocytes # 0.6 K/mm3 (0.1-1.0); Monocytes % 7.5 % (1.7-9.3); Neutrophils # 4.9 K/mm3 (1.8-7.8); Platelet Count 234 K/mm3 (142-424); Red Blood Count 3.35 M/mm3 (4.60-6.20); Red Cell Distribution Width 15.5 % (11.5-17.5); White Blood Count 8.1 K/mm3 (4.8-10.8)
[2024-01-13] MEDS: SACUBITRIL/VALSARTAN 24-26MG TABLET 1 EACH PO ×2 (08:46→20:06)
[2024-01-13] MEDS: POTASSIUM CHLORIDE 20MEQ/15ML UDC 20 MEQ PO ×3 (08:47→20:04)
[2024-01-13] MEDS: APIXABAN 5MG TABLET 5 MG PO ×2 (08:47→20:05)
[2024-01-13] MEDS: CARVEDILOL 12.5MG TABLET 12.5 MG PO ×2 (08:47→20:05)
[2024-01-13] MEDS: GABAPENTIN 100MG CAPSULE 100 MG PO ×2 (08:47→20:05)
--- NOTE | 2024-01-13 10:03 | PC.NURSE ---
Per MD during huddle- hold ALDACTONE for low BP, continue with full liquids and encourage eating, discontinue TPN when bag finished
[2024-01-13 11:14] LABS: POC Glucose,Bedside 131 (70-110)
--- NOTE | 2024-01-13 11:58 | P.PN_ITS ---
Subjective *Date: 01/13/24 *Time: 18:46 Interval history: Patient feeling well this morning. Had a bowel movement yesterday. Denies any nausea or vomiting. Passing gas. Tolerating advancement of diet. Working with therapy. Medical Exam Vital signs and Labs for Last 24 Hours: Vital Signs Temp Pulse Pulse Resp BP Pulse Ox O2 Del Method 01/13/24 11:17 79 01/13/24 11:17 79 01/13/24 11:00 Room Air 01/13/24 09:00 Room Air 01/13/24 08:00 80 01/13/24 08:00 97.7 F 90 16 90/59 L 97 Room Air 01/13/24 08:00 Room Air 01/13/24 06:42 Room Air 01/13/24 06:10 79 01/13/24 06:10 83 01/13/24 06:10 95 Room Air 01/13/24 05:00 Room Air 01/13/24 04:00 85 01/13/24 04:00 97.5 F L 80 18 98/57 L 96 Room Air 01/13/24 03:00 Room Air 01/13/24 00:50 Room Air 01/13/24 00:00 89 01/13/24 00:00 98.5 F 80 18 99/59 L 94 L Room Air 01/12/24 23:00 Room Air 01/12/24 21:00 Room Air 01/12/24 20:00 89 01/12/24 20:00 93 L Room Air 01/12/24 20:00 98.8 F 80 18 101/46 L 93 L Room Air 01/12/24 18:02 84 01/12/24 18:02 84 01/12/24 18:02 95 Room Air 01/12/24 17:55 Room Air 01/12/24 16:48 Room Air 01/12/24 15:53 97.9 F 78 22 111/70 97 Room Air 01/12/24 14:50 Room Air 01/12/24 13:00 Room Air 01/12/24 12:00 97.7 F 84 19 102/57 L 99 Room Air Intake and Output 01/12/24 01/13/24 01/13/24 23:59 07:59 15:59 Intake Total 196 / 1523 385 / 960 575 / 960 Output Total 475 / 2400 1050 / 1800 750 / 1800 Balance -279 / -877 -665 / -840 -175 / -840 Intake: Intake, Oral Amount 575 / 575 Intake, Total IV Amount 196 / 1043 385 / 385 Aa 5 %/Calcium/Lytes/Dext 20 % 196 / 255 385 / 385 1,000 ml @ 75 mls/hr IV . [id number] [facility] Rx#:[id number] Output: Output, Urine Amount 475 / 2400 1050 / 1800 750 / 1800 Other: Number of Voids 1 Number of Unmeasured Voids 1 Weight 71.713 kg Patient Weight 01/13/24 23:59 Weight 71.713 kg Laboratory Results - last 24 hr 01/12/24 16:30: POC Glucose 105 01/12/24 20:50: POC Glucose 129 H 01/13/24 05:45: WBC Cancelled, Corrected WBC Cancelled, RBC Cancelled, Hgb Cancelled, Hct Cancelled, MCV Cancelled, MCH Cancelled, MCHC Cancelled, RDW Cancelled, Plt Count Cancelled, MPV Cancelled, Neut % (Auto) Cancelled, Lymph % (Auto) Cancelled, [place] % (Auto) Cancelled, Eos % (Auto) Cancelled, Baso % (Auto) Cancelled, Neut # (Auto) Cancelled, Lymph # (Auto) Cancelled, [place] # (Auto) Cancelled, Eos # (Auto) Cancelled, Baso # (Auto) Cancelled, Magnesium 2.1 D, C- Reactive Protein 13.8 H 01/13/24 05:52: POC Glucose 146 H 01/13/24 06:30: WBC 8.1, RBC 3.35 L, Hgb 10.7 L, Hct 33.5 L, MCV 99.9 H, MCH 32.0 H, MCHC 32.1, RDW 15.5, Plt Count 234, MPV 9.2, Neut % (Auto) 60.0, Lymph % (Auto) 28.6, [place] % (Auto) 7.5, Eos % (Auto) 3.5, Baso % (Auto) 0.5, Neut # (Auto) 4.9, Lymph # (Auto) 2.3, [place] # (Auto) 0.6, Eos # (Auto) 0.3, Baso # (Auto) 0.0, Sodium 132 L, Potassium 4.2, Chloride 107, Carbon Dioxide 24, Anion Gap 5.2, BUN 23 H, Creatinine 0.60 L, Estimated Creat Clear 56, Estimated GFR 128, Est GFR ( Amer) 155, Glucose 126 H, Calcium 8.2 L, Total Bilirubin 0.4, AST 40, ALT 37, Alkaline Phosphatase 216 H, Total Protein 5.1 L, Albumin 2.6 L, Globulin 2.5, Albumin/Globulin Ratio 1.0 L 01/13/24 11:03: POC Glucose 131 H I & O for Labs for Last 24 Hours: Intake & Output 01/10/24 01/11/24 01/12/24 01/13/24 23:59 23:59 23:59 23:59 Intake Total 1841 / 2276 1175 / 1175 1523 / 1523 960 / 960 Output Total 1924 / 1925 1875 / 2050 2400 / 2400 1800 / 1800 Balance -84 / 351 -700 / -875 -877 / -877 -840 / -840 Weight 74.389 kg 74.888 kg 74.117 kg 71.713 kg Constitutional: Present no acute distress, average body habitus, chronically ill appearing and cooperative Head: Present atraumatic and normocephalic ENT: Present normal exam Respiratory: Present normal respiratory effort; Absent rhonchi, wheezes or crackles Cardiac: Present Reg Rate and Rhythm GI: Present soft, tenderness (Minimal) and normal bowel sounds; Absent distention, guarding or rebound Rectal (male): Present deferred (male): Present deferred Extremities: Present normal inspection and full ROM Skin: Present intact; Absent erythema Neuro: Present Grossly Intact, alert, awake, oriented x 3 and moves all extremities Assessment and Plan *Assessment and plan (1) Small bowel obstruction: Status: Acute Category: Medical Code(s): K56.609 - Unspecified intestinal obstruction, unspecified as to partial versus complete obstruction (2) Abdominal pain: Status: Acute Qualifiers: Abdominal location: periumbilical Qualified Code(s): R10.33 - Periumbilical pain Category: Medical Code(s): R10.9 - Unspecified abdominal pain (3) Status post laparotomy with lysis of adhesions: Status: Acute Category: Surgical Code(s): Z98.890 - Other specified postprocedural states (4) Acute osteomyelitis of lumbar spine: Status: Acute Category: Medical Code(s): M46.26 - Osteomyelitis of vertebra, lumbar region (5) Hypertension: Status: Acute Qualifiers: Hypertension type: unspecified Qualified Code(s): I10 - Essential (primary) hypertension Category: Medical Code(s): I10 - Essential (primary) hypertension (6) Hyperlipidemia: Status: Acute Qualifiers: Hyperlipidemia type: unspecified Qualified Code(s): E78.5 - Hyperlipidemia, unspecified Category: Medical Code(s): E78.5 - Hyperlipidemia, unspecified (7) Hypothyroidism: Status: Chronic Qualifiers: Hypothyroidism type: acquired Qualified Code(s): E03.9 - Hypothyroidism, unspecified Category: Medical Code(s): E03.9 - Hypothyroidism, unspecified (8) COPD (chronic obstructive pulmonary disease): Status: Acute Qualifiers: COPD type: unspecified COPD Qualified Code(s): J44.9 - Chronic obstructive pulmonary disease, unspecified Category: Medical Code(s): J44.9 - Chronic obstructive pulmonary disease, unspecified (9) Biventricular ICD (implantable cardioverter-defibrillator) in place: Status: Acute Category: Surgical Code(s): Z95.810 - Presence of automatic (implantable) cardiac defibrillator Plan 83-year-old male with a PMHx of discitis, chronic back pain, atrial fibrillation, BiV ICD, hypertension, lung mass, and colitis presenting to the emergency department for evaluation of nausea vomiting abdominal pain. A CT scan revealed evidence of distended small bowel loops and mesenteric volvulus. patient underwent OR for surgical intervention. Patient admitted to medicine thereafter. Having slow improvement in bowel function. NG removed yesterday. Tolerating well. Advance diet to full liquids today. Discontinuing TPN. Continues to require inpatient management. Problems addressed as follows: Acute abdominal pain likely secondary to SBO s/p laparotomy with lysis of adhesions Postop ileus - Discussed case with surgery this morning, reviewed their note. Advance to full liquids. Close monitoring of abdominal exam for discomfort. -Continue hydrocodone every 8 hours as needed. 5 mg/325 mg. Continue Tylenol 650 every 4 hours as needed. Toradol 15 mg every 6 hours as needed for pain. Necessitating close monitoring for toxicity risk - Zofran for nausea as needed - Ailyn cell count normal at 8.1, hemoglobin stable at 10.7. Sodium 132, chloride 107, potassium 4.2. -Discontinue TPN this afternoon. Repeat CBC, CMP, magnesium ordered for the morning. Suspected acute OM of L-spine - Image concerning for discitis with endplate destruction. Completed course of vancomycin and Zosyn on 01/09. -Repeat CRP 13.8. Stable. Stable chronic conditions: Hypertension hyperlipidemia hypothyroidism and COPD: Synthroid 100 mcg Entresto, bisoprolol On room air -Biventricular ICD in place: Continue cardiac care nurse Monitor for chest pain and arrhythmia on lovenox for DVT ppx On Protonix for GI bleed protection Full code Full liquid diet
--- NOTE | 2024-01-13 12:45 | DIET.NUTRFU ---
Patient is tolerating full liquids, covered in rounds, able to discontinue TPN. Last bag today. Continues to have bowel movement, abdomen is non-tender. Provider plans to discharge back to Thursday
[2024-01-13] MEDS: ONDANSETRON 4MG/2ML VIAL 4 MG IV (16:09)
[2024-01-13 16:14] LABS: POC Glucose,Bedside 125 (70-110)
--- NOTE | 2024-01-13 17:16 | PC.NURSE ---
Patient is lying supine in bed with the television on. During morning assessment patient complained of lower back pain that he rated an 8/10. Patient was informed of PRN pain med options, but stated, I dont want anything right now. i can tolerate an 8 . During later assessments patient verbalized decreased pain levels. Morning aldactone was held per MD orders due to BP of 90/59. MD also ordered to continue advancing full liquid diet and encourage pt to eat, but to discontinue TPN after current bag was finished. pt ate about 25% of both breakfast and lunch. Patient reported nausea at 1600 and was given Zofran per MAR. Patient verbalized resolution of symptoms upon reassessment. Bowel sounds active, abdoment soft and nontender, pt passing gas and belching. Midline abdominal incision clean, dry and intact. Patient has ambulated both in the room and in the hallway today and tolerated well. Adequate intake and output recorded. Pain reported is managable per pt. Call light is within reach.
[2024-01-13] MEDS: KETOROLAC 30MG/ML VIAL 15 MG IV (20:02)
[2024-01-13] MEDS: PRAVASTATIN 40MG TAB 40 MG PO (20:05)
[2024-01-13] MEDS: PANTOPRAZOLE 40MG VIAL 40 MG IV (20:06)
[2024-01-13] MEDS: TAMSULOSIN 0.4MG CAPSULE 0.400000000000000022 MG PO (20:06)
[2024-01-13 20:10] LABS: POC Glucose,Bedside 88 (70-110)
[2024-01-14] VITALS (9 sets, daily range): BP systolic 89–95; BP diastolic 54–61; PULSE 61–93; RESP 16–20; TEMP 36.4–37.2; O2SAT 95–98
[2024-01-14] MEDS: ONDANSETRON 4MG/2ML VIAL 4 MG IV (03:01)
[2024-01-14] MEDS: KETOROLAC 30MG/ML VIAL 15 MG IV (03:58)
--- NOTE | 2024-01-14 05:09 | PC.NURSE ---
RESTING QUIETLY AT THIS TIME. HAS BEEN MEDICATED X 2 FOR NAUSEA AND TWICE FOR LOW BACK PAIN WITH TORADOL. ABDOMEN SOFT, DISTENDED, + BOWEL SOUNDS X 4. VITAL SIGNS STABLE . AFEBRILE.
[2024-01-14 05:26] LABS: POC Glucose,Bedside 115 (70-110)
[2024-01-14] MEDS: LEVOTHYROXINE 175MCG (0.175MG) TAB 175 MCG PO (06:20)
[2024-01-14 06:33] LABS: Basophils # 0.1 K/mm3 (0-0.2); Basophils % 0.8 % (0.1-2.0); Eosinophils # 0.3 K/mm3 (0.0-0.4); Eosinophils % 2.1 % (0.1-12.0); Hematocrit 33.7 % (42.0-52.0); Hemoglobin 11.5 g/dL (14.1-18.0); Lymphocytes # 2.8 K/mm3 (0.7-4.5); Lymphocytes % 22.3 % (10-50); Mean Corpuscular HGB Conc 33.9 g/dL (31.8-35.4); Mean Corpuscular Hemoglobin 33.3 pg (27.0-31.2); Mean Corpuscular Volume 98.1 fl (80-94); Mean Platelet Volume 9.4 fl (7.4-10.4); Monocytes # 0.7 K/mm3 (0.1-1.0); Monocytes % 5.3 % (1.7-9.3); Neutrophils # 8.8 K/mm3 (1.8-7.8); Neutrophils % 69.5 % (37.0-80.0); Platelet Count 228 K/mm3 (142-424); Red Blood Count 3.44 M/mm3 (4.60-6.20); Red Cell Distribution Width 15.3 % (11.5-17.5); White Blood Count 12.7 K/mm3 (4.8-10.8)
[2024-01-14] MEDS: FLUTICASONE/UMECLIDIN/VILANTER 100/62.5/25MCG INHALER 1 PUFF IH (06:48)
[2024-01-14] MEDS: IPRATROPIUM/ALBUTEROL 3 ML NEB IH ×3 (06:48→18:48)
[2024-01-14 06:54] LABS: Alanine Aminotransferase 50 U/L (12-78); Albumin Level 2.8 g/dl (3.5-5.0); Albumin/Globulin Ratio 1.1 (1.1-1.8); Alkaline Phosphatase 283 U/L (38-126); Anion Gap 8.1 mEq/L (5-15); Aspartate Amino Transferase 60 U/L (17-59); Bilirubin,Total 0.5 mg/dl (0.2-1.3); Blood Urea Nitrogen 33 mg/dl (9-20); Calcium 8.6 mg/dl (8.4-10.2); Carbon Dioxide 23 mmol/L (22.0-30.0); Chloride 105 mmol/L (98-107); Creatinine Clearance Estimated 56 mL/min (50-200); Estimated Glomerular Filt Rate 71 ml/min (>60); GFR (African American) 86 ML/MIN (>60); Globulin 2.5 g/dL (1.3-3.2); Glucose 110 mg/dl (74-100); Magnesium 1.8 mg/dl (1.6-2.3); Phosphorous 3.8 mg/dl (2.5-4.5); Potassium 5.1 mmoL/L (3.5-5.1); Sodium 131 mmol/L (136-145); Total Protein,Serum 5.3 g/dl (6.3-8.2)
--- NOTE | 2024-01-14 08:10 | EXP.SURG.PN ---
Subjective Narrative: Patient had some pain overnight. He then states that he had 2 large bowel movements. Currently without complaints. Exam Data for Last 24 hours Vital signs and Labs for Last 24 Hours: Temp Pulse Resp BP Pulse Ox O2 Del Method O2 Flow Rate 98.4 F 79 20 92/57 L 95 Room Air 0 01/14/24 00:00 01/14/24 06:35 01/14/24 00:00 01/14/24 00:00 01/14/24 06:35 01/14/24 06:41 01/04/24 20:00 FiO2 28 12/29/23 19:46 Laboratory Results - last 24 hr 01/13/24 11:03: POC Glucose 131 H 01/13/24 16:00: POC Glucose 125 H 01/13/24 19:59: POC Glucose 88 01/14/24 05:19: POC Glucose 115 H 01/14/24 06:25: WBC 12.7 H D, RBC 3.44 L, Hgb 11.5 L, Hct 33.7 L, MCV 98.1 H, MCH 33.3 H, MCHC 33.9, RDW 15.3, Plt Count 228, MPV 9.4, Neut % (Auto) 69.5, Lymph % (Auto) 22.3, [place] % (Auto) 5.3, Eos % (Auto) 2.1, Baso % (Auto) 0.8, Neut # (Auto) 8.8 H, Lymph # (Auto) 2.8, [place] # (Auto) 0.7, Eos # (Auto) 0.3, Baso # (Auto) 0.1, Sodium 131 L, Potassium 5.1 D, Chloride 105, Carbon Dioxide 23, Anion Gap 8.1, BUN 33 H D, Creatinine 1.00 D, Estimated Creat Clear 56, Estimated GFR 71, Est GFR ( Amer) 86 D, Glucose 110 H, Calcium 8.6, Phosphorus 3.8, Magnesium 1.8 D, Total Bilirubin 0.5, AST 60 H D, ALT 50 D, Alkaline Phosphatase 283 H, Total Protein 5.3 L, Albumin 2.8 L, Globulin 2.5, Albumin/Globulin Ratio 1.1 I & O for Last 24 hours: Intake & Output 07/01/24 07/02/24 07/03/24 07/04/24 11:59 11:59 11:59 11:59 Intake Total 435 / 435 1587 / 1587 1636 / 1636 540 / 540 Output Total 1125 / 1275 2650 / 2750 2975 / 2975 870 / 870 Balance -690 / -840 -1063 / -1163 -1339 / -1339 -330 / -330 Weight 165 lb 1.6 oz 163 lb 6.4 oz 158 lb 1.6 oz *Routine Abdominal Exam Abdominal: Present soft; Absent tenderness Progress Note: A&P Assessment and plan (1) Small bowel obstruction: Status: Acute Assessment and plan: Advance diet. (2) Abdominal pain: Status: Acute (3) Status post laparotomy with lysis of adhesions: Status: Acute (4) Acute osteomyelitis of lumbar spine: Status: Acute (5) Hypertension: Status: Acute (6) Hyperlipidemia: Status: Acute (7) Hypothyroidism: Status: Chronic (8) COPD (chronic obstructive pulmonary disease): Status: Acute (9) Biventricular ICD (implantable cardioverter-defibrillator) in place: Status: Acute
[2024-01-14] MEDS: CARVEDILOL 12.5MG TABLET 12.5 MG PO ×2 (08:24→20:04)
[2024-01-14] MEDS: SACUBITRIL/VALSARTAN 24-26MG TABLET 1 EACH PO ×2 (08:24→20:04)
[2024-01-14] MEDS: POTASSIUM CHLORIDE 20MEQ/15ML UDC 20 MEQ PO ×2 (08:24→12:25)
[2024-01-14] MEDS: APIXABAN 5MG TABLET 5 MG PO ×2 (08:24→20:03)
[2024-01-14] MEDS: GABAPENTIN 100MG CAPSULE 100 MG PO ×2 (08:24→20:04)
--- NOTE | 2024-01-14 09:08 | EXP.ACUTE.PN ---
Subjective *Date: 01/14/24 *Time: 10:41 Interval history: Had an episode of abdominal pain overnight, had a large bowel movement with improvement. No bowel movement this morning after rounds. Denies chest pain or shortness of breath. Back pain stable. Afebrile. No jean-claude emesis. Medical Exam Vital signs and Labs for Last 24 Hours: Vital Signs Temp Pulse Pulse Resp BP Pulse Ox O2 Del Method 01/14/24 08:46 Room Air 01/14/24 08:00 98.6 F 80 16 93/57 L 98 01/14/24 08:00 Room Air 01/14/24 06:41 Room Air 01/14/24 06:35 79 01/14/24 06:35 82 01/14/24 06:35 95 Room Air 01/14/24 04:57 Room Air 01/14/24 04:00 84 01/14/24 03:00 Room Air 01/14/24 00:55 Room Air 01/14/24 00:00 98.4 F 72 20 92/57 L 97 Room Air 01/14/24 00:00 80 01/13/24 23:00 Room Air 01/13/24 21:00 Room Air 01/13/24 20:00 97 Room Air 01/13/24 20:00 87 01/13/24 20:00 97.5 F L 95 H 18 104/70 L 96 Room Air 01/13/24 18:48 95 H 01/13/24 18:48 80 01/13/24 18:27 Room Air 01/13/24 16:58 Room Air 01/13/24 16:00 80 01/13/24 16:00 97.5 F L 79 20 94/50 L Room Air 01/13/24 14:44 Room Air 01/13/24 13:00 Room Air 01/13/24 12:00 80 01/13/24 12:00 97.6 F 79 17 104/66 L Room Air 01/13/24 11:17 79 01/13/24 11:17 79 01/13/24 11:00 Room Air Intake and Output 01/13/24 01/14/24 01/14/24 23:59 07:59 15:59 Intake Total 300 / 1740 240 / 480 240 / 480 Output Total 250 / 2670 0 / 200 200 / 200 Balance 50 / -930 240 / 280 40 / 280 Intake: Intake, Oral Amount 300 / 1355 240 / 480 240 / 480 Output: Output, Urine Amount 250 / 2670 0 / 0 Output, Stool Amount 200 / 200 Other: Number of Voids 1 Number of Unmeasured Voids 1 Number of Bowel Movements 1 1 Laboratory Results - last 24 hr 01/13/24 11:03: POC Glucose 131 H 01/13/24 16:00: POC Glucose 125 H 01/13/24 19:59: POC Glucose 88 01/14/24 05:19: POC Glucose 115 H 01/14/24 06:25: WBC 12.7 H D, RBC 3.44 L, Hgb 11.5 L, Hct 33.7 L, MCV 98.1 H, MCH 33.3 H, MCHC 33.9, RDW 15.3, Plt Count 228, MPV 9.4, Neut % (Auto) 69.5, Lymph % (Auto) 22.3, [place] % (Auto) 5.3, Eos % (Auto) 2.1, Baso % (Auto) 0.8, Neut # (Auto) 8.8 H, Lymph # (Auto) 2.8, [place] # (Auto) 0.7, Eos # (Auto) 0.3, Baso # (Auto) 0.1, Sodium 131 L, Potassium 5.1 D, Chloride 105, Carbon Dioxide 23, Anion Gap 8.1, BUN 33 H D, Creatinine 1.00 D, Estimated Creat Clear 56, Estimated GFR 71, Est GFR ( Amer) 86 D, Glucose 110 H, Calcium 8.6, Phosphorus 3.8, Magnesium 1.8 D, Total Bilirubin 0.5, AST 60 H D, ALT 50 D, Alkaline Phosphatase 283 H, Total Protein 5.3 L, Albumin 2.8 L, Globulin 2.5, Albumin/Globulin Ratio 1.1 I & O for Labs for Last 24 Hours: Intake & Output 01/11/24 01/12/24 01/13/24 01/14/24 23:59 23:59 23:59 23:59 Intake Total 1175 / 1175 1523 / 1523 1500 / 1740 480 / 480 Output Total 1875 / 2050 2400 / 2400 2670 / 2670 200 / 200 Balance -700 / -875 -877 / -877 -1170 / -930 280 / 280 Weight 74.888 kg 74.117 kg 71.713 kg Constitutional: Present no acute distress, average body habitus, chronically ill appearing and cooperative Head: Present atraumatic and normocephalic ENT: Present normal exam Respiratory: Present normal respiratory effort; Absent rhonchi, wheezes or crackles Cardiac: Present Reg Rate and Rhythm GI: Present soft and normal bowel sounds; Absent distention, tenderness, guarding or rebound Rectal (male): Present deferred (male): Present deferred Extremities: Present normal inspection and full ROM Skin: Present intact; Absent erythema Neuro: Present Grossly Intact, alert, awake, oriented x 3 and moves all extremities Assessment and Plan *Assessment and plan (1) Small bowel obstruction: Status: Acute Category: Medical Code(s): K56.609 - Unspecified intestinal obstruction, unspecified as to partial versus complete obstruction (2) Abdominal pain: Status: Acute Qualifiers: Abdominal location: periumbilical Qualified Code(s): R10.33 - Periumbilical pain Category: Medical Code(s): R10.9 - Unspecified abdominal pain (3) Status post laparotomy with lysis of adhesions: Status: Acute Category: Surgical Code(s): Z98.890 - Other specified postprocedural states (4) Acute osteomyelitis of lumbar spine: Status: Acute Category: Medical Code(s): M46.26 - Osteomyelitis of vertebra, lumbar region (5) Hypertension: Status: Acute Qualifiers: Hypertension type: unspecified Qualified Code(s): I10 - Essential (primary) hypertension Category: Medical Code(s): I10 - Essential (primary) hypertension (6) Hyperlipidemia: Status: Acute Qualifiers: Hyperlipidemia type: unspecified Qualified Code(s): E78.5 - Hyperlipidemia, unspecified Category: Medical Code(s): E78.5 - Hyperlipidemia, unspecified (7) Hypothyroidism: Status: Chronic Qualifiers: Hypothyroidism type: acquired Qualified Code(s): E03.9 - Hypothyroidism, unspecified Category: Medical Code(s): E03.9 - Hypothyroidism, unspecified (8) COPD (chronic obstructive pulmonary disease): Status: Acute Qualifiers: COPD type: unspecified COPD Qualified Code(s): J44.9 - Chronic obstructive pulmonary disease, unspecified Category: Medical Code(s): J44.9 - Chronic obstructive pulmonary disease, unspecified (9) Biventricular ICD (implantable cardioverter-defibrillator) in place: Status: Acute Category: Surgical Code(s): Z95.810 - Presence of automatic (implantable) cardiac defibrillator Plan 83-year-old male with a PMHx of discitis, chronic back pain, atrial fibrillation, BiV ICD, hypertension, lung mass, and colitis presenting to the emergency department for evaluation of nausea vomiting abdominal pain. A CT scan revealed evidence of distended small bowel loops and mesenteric volvulus. patient underwent OR for surgical intervention. Patient admitted to medicine thereafter. Having slow improvement in bowel function. Tolerating advancement of diet. Continue full liquids today. Anticipate discharge in the next day or 2 if continues to do well. Problems addressed as follows: Acute abdominal pain likely secondary to SBO s/p laparotomy with lysis of adhesions Postop ileus - Discussed case with surgery this morning, continue full liquids today. Monitoring closely. If doing as well tomorrow as he is today, will discharge back to rehab/nursing facility. -Continue hydrocodone every 8 hours as needed. 5 mg/325 mg. Continue Tylenol 650 every 4 hours as needed. Toradol 15 mg every 6 hours as needed for pain. Necessitating close monitoring for toxicity risk - Zofran for nausea as needed - White cell count bumped today to 12.7. No other signs of infection. Hemoglobin 11.5. Sodium 131, chloride 105, potassium 5.1. - Repeat CBC, CMP, magnesium ordered for the morning. Suspected acute OM of L-spine - Image concerning for discitis with endplate destruction. Completed course of vancomycin and Zosyn on 01/09. -CRP 13.8 yesterday, repeat ordered for the morning. Stable chronic conditions: Hypertension hyperlipidemia hypothyroidism and COPD: Synthroid 100 mcg Entresto, bisoprolol On room air -Biventricular ICD in place: Continue monitoring tech Monitor for chest pain and arrhythmia on lovenox for DVT ppx On Protonix for GI bleed protection Full code Full liquid diet
[2024-01-14 11:15] LABS: POC Glucose,Bedside 105 (70-110)
--- NOTE | 2024-01-14 15:24 | PC.NURSE ---
pt is resting w/ eyes closed. Pt has ambulated to the bathroom 2 times today with loose stools. Pt verbalizes that he quickly gets the urge and is worried about making a mess. reinforcement of call light use taught and ensured walker was close and non skid socks were in place for safety. No complaints of nausea or vomiting. Abdomen is soft and flat. Morning spironalactone was held due to low BP of 93/57. pt was advanced to a bland diet for lunch and ate about 75% of his tray-tolerated well. pt has slept most of the shift and has no current complaints. Midline incision clean, dry and intact. call light within reach.
[2024-01-14 16:37] LABS: POC Glucose,Bedside 97 (70-110)
[2024-01-14] MEDS: PRAVASTATIN 40MG TAB 40 MG PO (20:04)
[2024-01-14] MEDS: PANTOPRAZOLE 40MG VIAL 40 MG IV (20:04)
[2024-01-14] MEDS: TAMSULOSIN 0.4MG CAPSULE 0.400000000000000022 MG PO (20:04)
[2024-01-14 20:21] LABS: POC Glucose,Bedside 94 (70-110)
[2024-01-15] VITALS (8 sets, daily range): BP systolic 90–103; BP diastolic 47–61; PULSE 65–95; RESP 16–20; TEMP 36.4–36.9; O2SAT 95–99; BMI 21.9
[2024-01-15] MEDS: KETOROLAC 30MG/ML VIAL 15 MG IV ×2 (00:18→21:37)
[2024-01-15] MEDS: IPRATROPIUM/ALBUTEROL 3 ML NEB IH ×3 (05:08→23:13)
[2024-01-15] MEDS: FLUTICASONE/UMECLIDIN/VILANTER 100/62.5/25MCG INHALER 1 PUFF IH (05:08)
[2024-01-15 05:57] LABS: Chloride 109 mmol/L (98-107); Potassium 4.5 mmoL/L (3.5-5.1); Sodium 133 mmol/L (136-145)
[2024-01-15 05:59] LABS: Magnesium 1.7 mg/dl (1.6-2.3)
[2024-01-15 06:00] LABS: Alanine Aminotransferase 44 U/L (12-78); Albumin Level 2.7 g/dl (3.5-5.0); Albumin/Globulin Ratio 1.2 (1.1-1.8); Alkaline Phosphatase 259 U/L (38-126); Anion Gap 6.5 mEq/L (5-15); Aspartate Amino Transferase 42 U/L (17-59); Bilirubin,Total 0.3 mg/dl (0.2-1.3); Blood Urea Nitrogen 44 mg/dl (9-20); Carbon Dioxide 22 mmol/L (22.0-30.0); Creatinine Clearance Estimated 54 mL/min (50-200); Estimated Glomerular Filt Rate 71 ml/min (>60); GFR (African American) 86 ML/MIN (>60); Globulin 2.3 g/dL (1.3-3.2)
[2024-01-15 06:01] LABS: Calcium 8.5 mg/dl (8.4-10.2); Glucose 105 mg/dl (74-100)
[2024-01-15] MEDS: LEVOTHYROXINE 175MCG (0.175MG) TAB 175 MCG PO (06:01)
[2024-01-15] MEDS: ACETAMINOPHEN 325MG TAB 650 MG PO (06:01)
[2024-01-15 06:05] LABS: Basophils # 0.1 K/mm3 (0-0.2); Basophils % 0.6 % (0.1-2.0); Eosinophils # 0.3 K/mm3 (0.0-0.4); Eosinophils % 2.8 % (0.1-12.0); Hematocrit 29.6 % (42.0-52.0); Hemoglobin 10.4 g/dL (14.1-18.0); Lymphocytes # 2.6 K/mm3 (0.7-4.5); Lymphocytes % 28.3 % (10-50); Mean Corpuscular HGB Conc 35.2 g/dL (31.8-35.4); Mean Corpuscular Hemoglobin 33.9 pg (27.0-31.2); Mean Corpuscular Volume 96.3 fl (80-94); Mean Platelet Volume 8.4 fl (7.4-10.4); Monocytes # 0.5 K/mm3 (0.1-1.0); Neutrophils # 5.7 K/mm3 (1.8-7.8); Neutrophils % 62.4 % (37.0-80.0); Platelet Count 199 K/mm3 (142-424); Red Blood Count 3.08 M/mm3 (4.60-6.20); Red Cell Distribution Width 15.5 % (11.5-17.5); White Blood Count 9.1 K/mm3 (4.8-10.8)
--- NOTE | 2024-01-15 06:19 | PC.NURSE ---
Patient alert and oriented x4. Tolerating room air well. No complaints of abdominal pain, nausea, or vomiting. No bowel movements this shift. Complaints of back pain and treated per MAR. No acute changes overnight. Call light within reach.
[2024-01-15 06:33] LABS: Erythrocyte Sedimentation Rate 73 mm/hr (0-20)
--- NOTE | 2024-01-15 07:03 | P.DS_ITS ---
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 Patient seen and evaluated after exploratory laparotomy for SBO. Currently obtunded under effect of sedation. History obatained by chart review and ED documentation. Patient had acute onset of periumbilical abdominal pain with associated bilious nausea and vomiting. He denies diarrhea. He denies recent bowel movement but reports that he has passed gas. Denied chest pain shortness of breath fever chills hemoptysis hematochezia melena hematemesis hematuria. A CT scan revealed evidence of distended small bowel loops and mesenteric volvulus. patient underwent OR for surgical intervention. Admitted for further management Hospital Course Hospital Course Hospital Course: 83-year-old male with a PMHx of discitis, chronic back pain, atrial fibrillation, BiV ICD, hypertension, lung mass, and colitis presenting to the emergency department for evaluation of nausea vomiting abdominal pain. A CT scan revealed evidence of distended small bowel loops and mesenteric volvulus. patient underwent OR for surgical intervention. Patient admitted to medicine thereafter. Having slow improvement in bowel function. Tolerating advancement of diet. Continue full liquids today. Anticipate discharge in the next day or 2 if continues to do well. Problems addressed as follows: Acute abdominal pain likely secondary to SBO s/p laparotomy with lysis of adhesions Postop ileus - Discussed case with surgery this morning, continue full liquids today. Monitoring closely. If doing as well tomorrow as he is today, will discharge back to rehab/nursing facility. -Continue hydrocodone every 8 hours as needed. 5 mg/325 mg. Continue Tylenol 650 every 4 hours as needed. Toradol 15 mg every 6 hours as needed for pain. Necessitating close monitoring for toxicity risk - Zofran for nausea as needed - White cell count bumped today to 12.7. No other signs of infection. Hemoglobin 11.5. Sodium 131, chloride 105, potassium 5.1. - Repeat CBC, CMP, magnesium ordered for the morning. Suspected acute OM of L-spine - Image concerning for discitis with endplate destruction. Completed course of vancomycin and Zosyn on 01/09. -CRP 13.8 yesterday, repeat ordered for the morning. Stable chronic conditions: Hypertension hyperlipidemia hypothyroidism and COPD: Synthroid 100 mcg Entresto, bisoprolol On room air -Biventricular ICD in place: Continue equipment monitor phototypesetting Monitor for chest pain and arrhythmia Exam Data for Last 24 hours Vital signs and Labs for Last 24 Hours: Temp Pulse Resp BP Pulse Ox O2 Del Method O2 Flow Rate 97.8 F 84 16 95/61 L 97 Room Air 0 01/14/24 16:00 01/14/24 16:00 01/14/24 16:00 01/14/24 16:00 01/14/24 16:00 01/14/24 17:00 01/04/24 20:00 FiO2 28 12/29/23 19:46 Laboratory Results - last 24 hr 01/13/24 19:59: POC Glucose 88 01/14/24 05:19: POC Glucose 115 H 01/14/24 06:25: WBC 12.7 H D, RBC 3.44 L, Hgb 11.5 L, Hct 33.7 L, MCV 98.1 H, MCH 33.3 H, MCHC 33.9, RDW 15.3, Plt Count 228, MPV 9.4, Neut % (Auto) 69.5, Lymph % (Auto) 22.3, [place] % (Auto) 5.3, Eos % (Auto) 2.1, Baso % (Auto) 0.8, Neut # (Auto) 8.8 H, Lymph # (Auto) 2.8, [place] # (Auto) 0.7, Eos # (Auto) 0.3, Baso # (Auto) 0.1, Sodium 131 L, Potassium 5.1 D, Chloride 105, Carbon Dioxide 23, Anion Gap 8.1, BUN 33 H D, Creatinine 1.00 D, Estimated Creat Clear 56, Estimated GFR 71, Est GFR ( Amer) 86 D, Glucose 110 H, Calcium 8.6, Phosphorus 3.8, Magnesium 1.8 D, Total Bilirubin 0.5, AST 60 H D, ALT 50 D, Alkaline Phosphatase 283 H, Total Protein 5.3 L, Albumin 2.8 L, Globulin 2.5, Albumin/Globulin Ratio 1.1 01/14/24 11:08: POC Glucose 105 01/14/24 16:30: POC Glucose 97 I & O for Last 24 hours: Intake & Output 01/11/24 01/12/24 01/13/24 01/14/24 23:59 23:59 23:59 23:59 Intake Total 1175 / 1175 1523 / 1523 1500 / 1740 690 / 690 Output Total 1875 / 2050 2400 / 2400 2670 / 2670 200 / 200 Balance -700 / -875 -877 / -877 -1170 / -930 490 / 490 Weight 74.888 kg 74.117 kg 71.713 kg Constitutional Constitutional: no acute distress, thin, chronically ill appearing and cooperative *Routine HEENT Exam Head: Present normocephalic Eye: Present EOMI and PERRL ENT: Present mucous membranes moist *Routine Neck Exam Neck: Present supple; Absent lymphadenopathy *Routine Respiratory Exam Respiratory: Present CTA bilaterally; Absent rhonchi, wheezes or crackles *Routine Cardiovascular Exam Cardiovascular: Present RRR *Routine Abdominal Exam Abdominal: Present soft, normoactive bowel sounds and tenderness (Mild tenderness, healing midline scar.); Absent distended, rebound or guarding *Routine Rectal Exam Patient deferred: visual exam *Routine Exam Patient deferred: penile exam *Routine Extremities Exam Extremities: Absent cyanosis, clubbing or edema Routine Back/Spine/Pelvis Exam Comments: Tender over lower back midline *Routine Skin Exam Skin: Present warm; Absent rash *Routine Neurological Exam Neurological: Present alert, oriented X3 and moving all extremities; Absent altered mental status Results Data Completed and Pending Labs on day of discharge: Labs from last 24 hours 01/14/24 01/14/24 01/14/24 16:30 11:08 06:25 WBC 12.7 H D RBC 3.44 L Hgb 11.5 L Hct 33.7 L MCV 98.1 H MCH 33.3 H MCHC 33.9 RDW 15.3 Plt Count 228 MPV 9.4 Neut % (Auto) 69.5 Lymph % (Auto) 22.3 [place] % (Auto) 5.3 Eos % (Auto) 2.1 Baso % (Auto) 0.8 Neut # (Auto) 8.8 H Lymph # (Auto) 2.8 [place] # (Auto) 0.7 Eos # (Auto) 0.3 Baso # (Auto) 0.1 Sodium 131 L Potassium 5.1 D Chloride 105 Carbon Dioxide 23 Anion Gap 8.1 BUN 33 H D Creatinine 1.00 D Estimated Creat Clear 56 Estimated GFR 71 Est GFR ( Amer) 86 D Glucose 110 H POC Glucose 97 105 Calcium 8.6 Phosphorus 3.8 Magnesium 1.8 D Total Bilirubin 0.5 AST 60 H D ALT 50 D Alkaline Phosphatase 283 H Total Protein 5.3 L Albumin 2.8 L Globulin 2.5 Albumin/Globulin Ratio 1.1 01/14/24 01/13/24 05:19 19:59 WBC RBC Hgb Hct MCV MCH MCHC RDW Plt Count MPV Neut % (Auto) Lymph % (Auto) [place] % (Auto) Eos % (Auto) Baso % (Auto) Neut # (Auto) Lymph # (Auto) [place] # (Auto) Eos # (Auto) Baso # (Auto) Sodium Potassium Chloride Carbon Dioxide Anion Gap BUN Creatinine Estimated Creat Clear Estimated GFR Est GFR ( Amer) Glucose POC Glucose 115 H 88 Calcium Phosphorus Magnesium Total Bilirubin AST ALT Alkaline Phosphatase Total Protein Albumin Globulin Albumin/Globulin Ratio DS: Diagnosis Discharge Diagnosis (1) Small bowel obstruction: Status: Acute Code(s): K56.609 - Unspecified intestinal obstruction, unspecified as to partial versus complete obstruction (2) Abdominal pain: Status: Acute Code(s): R10.9 - Unspecified abdominal pain Qualifiers: Abdominal location: periumbilical Qualified Code(s): R10.33 - Periumbilical pain (3) Status post laparotomy with lysis of adhesions: Status: Acute Code(s): Z98.890 - Other specified postprocedural states (4) Acute osteomyelitis of lumbar spine: Status: Acute Code(s): M46.26 - Osteomyelitis of vertebra, lumbar region (5) Hypertension: Status: Acute Code(s): I10 - Essential (primary) hypertension Qualifiers: Hypertension type: unspecified Qualified Code(s): I10 - Essential ( primary) hypertension (6) Hyperlipidemia: Status: Acute Code(s): E78.5 - Hyperlipidemia, unspecified Qualifiers: Hyperlipidemia type: unspecified Qualified Code(s): E78.5 - Hyperlipidemia, unspecified (7) Hypothyroidism: Status: Chronic Code(s): E03.9 - Hypothyroidism, unspecified Qualifiers: Hypothyroidism type: acquired Qualified Code(s): E03.9 - Hypothyroidism, unspecified (8) COPD (chronic obstructive pulmonary disease): Status: Acute Code(s): J44.9 - Chronic obstructive pulmonary disease, unspecified Qualifiers: COPD type: unspecified COPD Qualified Code(s): J44.9 - Chronic obstructive pulmonary disease, unspecified (9) Biventricular ICD (implantable cardioverter-defibrillator) in place: Status: Acute Code(s): Z95.810 - Presence of automatic (implantable) cardiac defibrillator Meds Home Medications and Allergies Home Medications Medication Instructions Recorded Confirmed Type tamsulosin 0.4 mg capsule 0.4 mg PO HS 01/15/23 12/28/23 History apixaban 5 mg tablet (Eliquis) 5 mg PO BID 01/20/23 12/28/23 History fluticasone fur. 100 mcg-umeclid 1 inh inhalation DAILY 11/02/23 12/28/23 History 62.5 mcg-vilant 25 mcg inhalat.powder (Trelegy Ellipta) pravastatin 40 mg tablet 40 mg PO HS 11/02/23 12/28/23 History carvedilol 12.5 mg tablet 12.5 mg PO BID 12/28/23 12/28/23 History empagliflozin 10 mg tablet 10 mg PO DAILY 12/28/23 12/28/23 History gabapentin 100 mg capsule 100 mg PO BID 12/28/23 12/28/23 History levothyroxine 175 mcg tablet 175 mcg PO DAILY 12/28/23 12/28/23 History pantoprazole 40 mg tablet,delayed 40 mg PO DAILY 12/28/23 12/28/23 History release spironolactone 25 mg tablet 12.5 mg PO DAILY 12/28/23 12/28/23 History hydrocodone 5 mg-acetaminophen 325 1 tab PO Q6HP PRN Mild To Moderate 01/04/24 Rx mg tablet Pain (1-6) 3 days #12 tabs sacubitril 24 mg-valsartan 26 mg 1 tab PO BID #60 tabs 01/04/24 Rx tablet (Entresto) allopurinol 300 mg tablet 300 mg PO DAILY #90 tabs 01/07/24 Rx New Prescriptions to Start Prescriptions: hydrocodone-acetaminophen José Miguel Adams sacubitril-valsartan [Entresto] José Miguel Adams Allergies Allergy/AdvReac Type Severity Reaction Status Date / Time No Known Allergies Allergy Verified 06/24/23 10:25 Discharge Plan Disposition Patient Disposition: Xfer Intermediate Care Fac Condition: Fair Follow up Plan Follow up with: Parag Sood MD [Staff Physician] - 1 week Prescriptions/Medication Reconciliation: New hydrocodone-acetaminophen 5-325 mg Tablet 1 tab PO Q6HP PRN (Reason: Mild To Moderate Pain (1-6)) 3 Days Qty: 12 0RF Entresto 24-26 mg tablet 1 tab PO BID Qty: 60 0RF Continued Eliquis 5 mg tablet 5 mg PO BID allopurinol 300 mg tablet 300 mg PO DAILY Qty: 90 1RF tamsulosin 0.4 mg Capsule 0.4 mg PO HS pravastatin 40 mg tablet 40 mg PO HS Trelegy Ellipta 100-62.5-25 mcg blister with device 1 inh INHALATION DAILY levothyroxine 175 mcg Tablet 175 mcg PO DAILY carvedilol 12.5 mg Tablet 12.5 mg PO BID Rx Instructions: must administer with a meal/food spironolactone 25 mg Tablet 12.5 mg PO DAILY pantoprazole 40 mg Tablet,Delayed Release (Dr/Ec) 40 mg PO DAILY gabapentin 100 mg Capsule 100 mg PO BID empagliflozin 10 mg Tablet 10 mg PO DAILY Discontinued Entresto 97-103 mg tablet 1 tab PO BID Patient Comments: TAKE 1 TABLET TWICE DAILY oxycodone 15 mg Tablet 7.5 mg PO Q6HP PRN (Reason: Moderate Pain (Scale Score 5-6)) piperacillin-tazobactam 4.5 gram Recon Soln 4.5 g IV Q8H vancomycin in dextrose 5 % 1.25 gram/250 mL Solution 1.25 g IV Q24H Problem Reconciliation Problems Reviewed?: Yes Patient Discharge Instructions ACTIVITY: Continue current activity and Ambulate as tolerated DIET: continue same diet and advance to your usual diet Patient Instructions: DI for Small Bowel Obstruction, DI for Exploratory Laparotomy, DI for Surgical Site Infection, Catheter-Associated Urinary Tract Infection Providers Primary Care Provider: Provider,Referral Admit Provider: Scott Yao Attending Provider: Scott Yao
[2024-01-15] MEDS: SACUBITRIL/VALSARTAN 24-26MG TABLET 1 EACH PO ×2 (08:16→21:30)
[2024-01-15] MEDS: GABAPENTIN 100MG CAPSULE 100 MG PO ×2 (08:16→21:30)
[2024-01-15] MEDS: APIXABAN 5MG TABLET 5 MG PO ×2 (08:16→21:31)
[2024-01-15] MEDS: CARVEDILOL 12.5MG TABLET 12.5 MG PO ×2 (08:16→21:30)
[2024-01-15] MEDS: SPIRONOLACTONE 25MG TABLET 12.5 MG PO (08:17)
[2024-01-15] MEDS: MAGNESIUM OXIDE 400MG TABLET 400 MG PO (08:32)
--- NOTE | 2024-01-15 10:06 | P.PN_ITS ---
Subjective Patient reports: no new complaints Narrative: Patient has no complaints. Tolerating bland diet. Exam Data for Last 24 hours Vital signs and Labs for Last 24 Hours: Temp Pulse Resp BP Pulse Ox O2 Del Method O2 Flow Rate 98.5 F 65 20 99/52 L 95 Room Air 0 01/15/24 07:27 01/15/24 07:27 01/15/24 07:27 01/15/24 07:27 01/15/24 07:27 01/15/24 08:59 01/04/24 20:00 FiO2 28 12/29/23 19:46 Laboratory Results - last 24 hr 01/14/24 11:08: POC Glucose 105 01/14/24 16:30: POC Glucose 97 01/14/24 20:01: POC Glucose 94 01/15/24 05:25: WBC 9.1 D, RBC 3.08 L, Hgb 10.4 L, Hct 29.6 L, MCV 96.3 H, MCH 33.9 H, MCHC 35.2, RDW 15.5, Plt Count 199, MPV 8.4, Neut % (Auto) 62.4, Lymph % (Auto) 28.3, [place] % (Auto) 6.0, Eos % (Auto) 2.8, Baso % (Auto) 0.6, Neut # (Auto) 5.7, Lymph # (Auto) 2.6, [place] # (Auto) 0.5, Eos # (Auto) 0.3, Baso # (Auto) 0.1, ESR 73 H, Sodium 133 L, Potassium 4.5, Chloride 109 H, Carbon Dioxide 22, Anion Gap 6.5, BUN 44 H D, Creatinine 1.00, Estimated Creat Clear 54, Estimated GFR 71, Est GFR ( Amer) 86, Glucose 105 H, Calcium 8.5, Magnesium 1.7, Total Bilirubin 0.3, AST 42 D, ALT 44, Alkaline Phosphatase 259 H, C-Reactive Protein 18.0 H D, Total Protein 5.0 L, Albumin 2.7 L, Globulin 2.3, Albumin/Globulin Ratio 1.2 I & O for Last 24 hours: Intake & Output 01/12/24 01/13/24 01/14/24 01/15/24 11:59 11:59 11:59 11:59 Intake Total 1587 / 1587 1636 / 1636 1020 / 1020 450 / 450 Output Total 2650 / 2750 2975 / 2975 1070 / 1070 400 / 400 Balance -1063 / -1163 -1339 / -1339 -50 / -50 50 / 50 Weight 163 lb 6.4 oz 158 lb 1.6 oz 153 lb *Routine Abdominal Exam Abdominal: Present soft; Absent tenderness Progress Note: A&P Assessment and plan (1) Small bowel obstruction: Status: Acute Assessment and plan: Possible discharge (2) Abdominal pain: Status: Acute (3) Status post laparotomy with lysis of adhesions: Status: Acute (4) Acute osteomyelitis of lumbar spine: Status: Acute (5) Hypertension: Status: Acute (6) Hyperlipidemia: Status: Acute (7) Hypothyroidism: Status: Chronic (8) COPD (chronic obstructive pulmonary disease): Status: Acute (9) Biventricular ICD (implantable cardioverter-defibrillator) in place: Status: Acute
[2024-01-15] MEDS: PANTOPRAZOLE 40MG VIAL 40 MG IV (21:30)
[2024-01-15] MEDS: PRAVASTATIN 40MG TAB 40 MG PO (21:30)
[2024-01-15] MEDS: SODIUM CHLORIDE 0.9% 10ML VIAL 10 ML IV (21:30)
[2024-01-15] MEDS: TAMSULOSIN 0.4MG CAPSULE 0.400000000000000022 MG PO (21:31)
--- NOTE | 2024-01-15 22:22 | EXP.ACUTE.PN ---
Subjective *Date: 01/15/24 *Time: 22:22 Interval history: Feeling well today. Back pain stable. No nausea or vomiting. Having daily bowel movements. Tolerating p.o. intake. Stable to discharge. On room air. Medical Exam Vital signs and Labs for Last 24 Hours: Vital Signs Temp Pulse Pulse Resp BP Pulse Ox O2 Del Method 01/15/24 20:00 98.2 F 79 17 103/56 L 97 Room Air 01/15/24 19:00 Room Air 01/15/24 18:55 85 01/15/24 18:55 86 01/15/24 18:55 99 Room Air 01/15/24 17:00 Room Air 01/15/24 16:00 98.2 F 83 20 101/61 L 97 Room Air 01/15/24 15:00 Room Air 01/15/24 13:00 Room Air 01/15/24 11:29 97.5 F L 77 20 90/58 L 99 Room Air 01/15/24 10:57 Room Air 01/15/24 08:59 Room Air 01/15/24 08:15 Room Air 01/15/24 07:27 98.5 F 65 20 99/52 L 95 Room Air 01/15/24 06:48 Room Air 01/15/24 05:10 Room Air 01/15/24 04:00 98.3 F 85 16 99/47 L 97 Room Air 01/15/24 03:00 Room Air 01/15/24 01:00 Room Air 01/15/24 00:00 97.7 F 95 H 16 91/56 L 96 Room Air 01/14/24 23:00 Room Air Intake and Output 01/15/24 01/15/24 01/15/24 07:59 15:59 23:59 Intake Total 480 / 480 0 / 480 Output Total 250 / 500 250 / 500 Balance -250 / -20 230 / -20 0 / -20 Intake: Intake, Oral Amount 480 / 480 0 / 480 Output: Output, Urine Amount 250 / 500 250 / 500 Other: Number of Unmeasured Voids 1 1 Number of Bowel Movements 1 1 Weight 69.4 kg Patient Weight 01/15/24 23:59 Weight 69.4 kg Laboratory Results - last 24 hr 01/15/24 05:25: WBC 9.1 D, RBC 3.08 L, Hgb 10.4 L, Hct 29.6 L, MCV 96.3 H, MCH 33.9 H, MCHC 35.2, RDW 15.5, Plt Count 199, MPV 8.4, Neut % (Auto) 62.4, Lymph % (Auto) 28.3, [place] % (Auto) 6.0, Eos % (Auto) 2.8, Baso % (Auto) 0.6, Neut # (Auto) 5.7, Lymph # (Auto) 2.6, [place] # (Auto) 0.5, Eos # (Auto) 0.3, Baso # (Auto) 0.1, ESR 73 H, Sodium 133 L, Potassium 4.5, Chloride 109 H, Carbon Dioxide 22, Anion Gap 6.5, BUN 44 H D, Creatinine 1.00, Estimated Creat Clear 54, Estimated GFR 71, Est GFR ( Amer) 86, Glucose 105 H, Calcium 8.5, Magnesium 1.7, Total Bilirubin 0.3, AST 42 D, ALT 44, Alkaline Phosphatase 259 H, C-Reactive Protein 18.0 H D, Total Protein 5.0 L, Albumin 2.7 L, Globulin 2.3, Albumin/Globulin Ratio 1.2 I & O for Labs for Last 24 Hours: Intake & Output 01/12/24 01/13/24 01/14/24 01/15/24 23:59 23:59 23:59 23:59 Intake Total 1523 / 1523 1500 / 1740 690 / 690 480 / 480 Output Total 2400 / 2400 2670 / 2670 200 / 200 500 / 500 Balance -877 / -877 -1170 / -930 490 / 490 -20 / -20 Weight 74.117 kg 71.713 kg 69.4 kg Constitutional: Present no acute distress, average body habitus, chronically ill appearing and cooperative Head: Present atraumatic and normocephalic ENT: Present normal exam Respiratory: Present normal respiratory effort; Absent rhonchi, wheezes or crackles Cardiac: Present Reg Rate and Rhythm GI: Present soft and normal bowel sounds; Absent distention, tenderness, guarding or rebound Rectal (male): Present deferred (male): Present deferred Extremities: Present normal inspection and full ROM Skin: Present intact; Absent erythema Neuro: Present Grossly Intact, alert, awake, oriented x 3 and moves all extremities Assessment and Plan *Assessment and plan (1) Small bowel obstruction: Status: Acute Category: Medical Code(s): K56.609 - Unspecified intestinal obstruction, unspecified as to partial versus complete obstruction (2) Abdominal pain: Status: Acute Qualifiers: Abdominal location: periumbilical Qualified Code(s): R10.33 - Periumbilical pain Category: Medical Code(s): R10.9 - Unspecified abdominal pain (3) Status post laparotomy with lysis of adhesions: Status: Acute Category: Surgical Code(s): Z98.890 - Other specified postprocedural states (4) Acute osteomyelitis of lumbar spine: Status: Acute Category: Medical Code(s): M46.26 - Osteomyelitis of vertebra, lumbar region (5) Hypertension: Status: Acute Qualifiers: Hypertension type: unspecified Qualified Code(s): I10 - Essential (primary) hypertension Category: Medical Code(s): I10 - Essential (primary) hypertension (6) Hyperlipidemia: Status: Acute Qualifiers: Hyperlipidemia type: unspecified Qualified Code(s): E78.5 - Hyperlipidemia, unspecified Category: Medical Code(s): E78.5 - Hyperlipidemia, unspecified (7) Hypothyroidism: Status: Chronic Qualifiers: Hypothyroidism type: acquired Qualified Code(s): E03.9 - Hypothyroidism, unspecified Category: Medical Code(s): E03.9 - Hypothyroidism, unspecified (8) COPD (chronic obstructive pulmonary disease): Status: Acute Qualifiers: COPD type: unspecified COPD Qualified Code(s): J44.9 - Chronic obstructive pulmonary disease, unspecified Category: Medical Code(s): J44.9 - Chronic obstructive pulmonary disease, unspecified (9) Biventricular ICD (implantable cardioverter-defibrillator) in place: Status: Acute Category: Surgical Code(s): Z95.810 - Presence of automatic (implantable) cardiac defibrillator Plan 83-year-old male with a PMHx of discitis, chronic back pain, atrial fibrillation, BiV ICD, hypertension, lung mass, and colitis presenting to the emergency department for evaluation of nausea vomiting abdominal pain. A CT scan revealed evidence of distended small bowel loops and mesenteric volvulus. patient underwent OR for surgical intervention. Patient admitted to medicine thereafter. Having slow improvement in bowel function. Tolerating advancement of diet. Tolerating full liquids. Stable to discharge. Awaiting placement. Problems addressed as follows: Acute abdominal pain likely secondary to SBO s/p laparotomy with lysis of adhesions Postop ileus - Discussed case with surgery this morning, continue full liquids today. Monitoring closely. Stable to discharge. -Continue hydrocodone every 8 hours as needed. 5 mg/325 mg. Continue Tylenol 650 every 4 hours as needed. Toradol 15 mg every 6 hours as needed for pain. Necessitating close monitoring for toxicity risk - Zofran for nausea as needed - White cell count improved today without antibiotics. 9.1. Hemoglobin 10.4. Electrolytes improving with sodium 133, chloride 107. Potassium 4.5. - Repeat CBC, CMP, magnesium ordered for the morning. Suspected acute OM of L-spine - Image concerning for discitis with endplate destruction. Completed course of vancomycin and Zosyn on 01/09. - CRP up to 18, ESR 73. Repeat ordered for the morning -Has follow-up with infectious disease at [facility] next Thursday Stable chronic conditions: Hypertension hyperlipidemia hypothyroidism and COPD: Synthroid 100 mcg Entresto, bisoprolol On room air -Biventricular ICD in place: Continue monitor tech Monitor for chest pain and arrhythmia on lovenox for DVT ppx On Protonix for GI bleed protection Full code Full liquid diet
[2024-01-16] VITALS (9 sets, daily range): BP systolic 95–109; BP diastolic 53–68; PULSE 60–97; RESP 16–19; TEMP 36.4–37.1; O2SAT 92–98; BMI 21.8
[2024-01-16] MEDS: IPRATROPIUM/ALBUTEROL 3 ML NEB IH ×2 (06:15→11:12)
[2024-01-16] MEDS: FLUTICASONE/UMECLIDIN/VILANTER 100/62.5/25MCG INHALER 1 PUFF IH (06:15)
[2024-01-16] MEDS: LEVOTHYROXINE 175MCG (0.175MG) TAB 175 MCG PO (07:11)
[2024-01-16 07:30] LABS: Alanine Aminotransferase 59 U/L (12-78); Albumin Level 2.7 g/dl (3.5-5.0); Albumin/Globulin Ratio 1.1 (1.1-1.8); Alkaline Phosphatase 284 U/L (38-126); Aspartate Amino Transferase 76 U/L (17-59); Bilirubin,Total 0.4 mg/dl (0.2-1.3); Blood Urea Nitrogen 42 mg/dl (9-20); Calcium 8.6 mg/dl (8.4-10.2); Carbon Dioxide 22 mmol/L (22.0-30.0); Chloride 111 mmol/L (98-107); Creatinine Clearance Estimated 54 mL/min (50-200); Estimated Glomerular Filt Rate 92 ml/min (>60); GFR (African American) 111 ML/MIN (>60); Globulin 2.4 g/dL (1.3-3.2); Glucose 98 mg/dl (74-100); Sodium 135 mmol/L (136-145); Total Protein,Serum 5.1 g/dl (6.3-8.2)
[2024-01-16 07:36] LABS: C-Reactive Protein 20.8 mg/L (0-4)
[2024-01-16 07:42] LABS: Erythrocyte Sedimentation Rate 63 mm/hr (0-20)
[2024-01-16 07:45] LABS: Basophils # 0.1 K/mm3 (0-0.2); Basophils % 0.9 % (0.1-2.0); Eosinophils # 0.3 K/mm3 (0.0-0.4); Eosinophils % 3.5 % (0.1-12.0); Hematocrit 31.8 % (42.0-52.0); Hemoglobin 10.5 g/dL (14.1-18.0); Lymphocytes # 2.2 K/mm3 (0.7-4.5); Lymphocytes % 25.5 % (10-50); Mean Corpuscular HGB Conc 33.2 g/dL (31.8-35.4); Mean Corpuscular Hemoglobin 32.8 pg (27.0-31.2); Mean Corpuscular Volume 98.8 fl (80-94); Mean Platelet Volume 8.8 fl (7.4-10.4); Monocytes # 0.6 K/mm3 (0.1-1.0); Monocytes % 7.1 % (1.7-9.3); Neutrophils # 5.5 K/mm3 (1.8-7.8); Neutrophils % 63.1 % (37.0-80.0); Platelet Count 215 K/mm3 (142-424); Red Blood Count 3.21 M/mm3 (4.60-6.20); Red Cell Distribution Width 15.3 % (11.5-17.5); White Blood Count 8.6 K/mm3 (4.8-10.8)
[2024-01-16] MEDS: SPIRONOLACTONE 25MG TABLET 12.5 MG PO (08:50)
[2024-01-16] MEDS: APIXABAN 5MG TABLET 5 MG PO ×2 (08:50→20:43)
[2024-01-16] MEDS: MAGNESIUM OXIDE 400MG TABLET 400 MG PO (08:50)
[2024-01-16] MEDS: CARVEDILOL 12.5MG TABLET 12.5 MG PO ×2 (08:50→20:43)
[2024-01-16] MEDS: SACUBITRIL/VALSARTAN 24-26MG TABLET 1 EACH PO ×2 (08:50→20:43)
[2024-01-16] MEDS: GABAPENTIN 100MG CAPSULE 100 MG PO ×2 (08:50→20:43)
[2024-01-16 09:57] LABS: Magnesium 1.7 mg/dl (1.6-2.3)
--- NOTE | 2024-01-16 13:58 | P.PN_ITS ---
Subjective *Date: 01/16/24 *Time: 14:18 Interval history: Feeling well today. Back pain stable. No nausea or vomiting. Having daily bowel movements. Tolerating p.o. intake. Stable to discharge. On room air. Medical Exam Vital signs and Labs for Last 24 Hours: Vital Signs Temp Pulse Pulse Resp BP Pulse Ox O2 Del Method 01/16/24 13:00 Room Air 01/16/24 12:00 98.4 F 97 H 18 107/68 L 98 Room Air 01/16/24 11:12 96 H 01/16/24 11:12 94 H 01/16/24 11:00 Room Air 01/16/24 09:00 Room Air 01/16/24 08:00 Room Air 01/16/24 08:00 98.1 F 96 H 19 98/58 L 95 Room Air 01/16/24 06:49 Room Air 01/16/24 06:16 79 01/16/24 06:16 81 01/16/24 06:16 92 L Room Air 01/16/24 05:00 Room Air 01/16/24 04:00 97.6 F 89 16 101/66 L 96 Room Air 01/16/24 03:00 Room Air 01/16/24 01:00 Room Air 01/16/24 00:00 98.0 F 87 17 95/55 L 97 Room Air 01/15/24 23:18 76 01/15/24 23:18 82 01/15/24 23:00 Room Air 01/15/24 21:00 Room Air 01/15/24 20:00 Room Air 01/15/24 20:00 98.2 F 79 17 103/56 L 97 Room Air 01/15/24 19:00 Room Air 01/15/24 18:55 85 01/15/24 18:55 86 01/15/24 18:55 99 Room Air 01/15/24 17:00 Room Air 01/15/24 16:00 98.2 F 83 20 101/61 L 97 Room Air 01/15/24 15:00 Room Air Intake and Output 01/15/24 01/16/24 01/16/24 23:59 07:59 15:59 Intake Total 0 / 720 240 / 660 420 / 660 Output Total 200 / 700 250 / 250 0 / 250 Balance -200 / 20 -10 / 410 420 / 410 Intake: Intake, Oral Amount 0 / 720 240 / 660 420 / 660 Output: Output, Urine Amount 200 / 700 250 / 250 0 / 250 Other: Number of Unmeasured Voids 0 0 1 Number of Bowel Movements 1 1 Weight 69.218 kg Patient Weight 01/16/24 23:59 Weight 69.218 kg Laboratory Results - last 24 hr 01/16/24 06:30: WBC 8.6, RBC 3.21 L, Hgb 10.5 L, Hct 31.8 L, MCV 98.8 H, MCH 32.8 H, MCHC 33.2, RDW 15.3, Plt Count 215, MPV 8.8, Neut % (Auto) 63.1, Lymph % (Auto) 25.5, [place] % (Auto) 7.1, Eos % (Auto) 3.5, Baso % (Auto) 0.9, Neut # (Auto) 5.5, Lymph # (Auto) 2.2, [place] # (Auto) 0.6, Eos # (Auto) 0.3, Baso # (Auto) 0.1, ESR 63 H, Sodium 135 L, Potassium 4.0, Chloride 111 H, Carbon Dioxide 22, Anion Gap 6.0, BUN 42 H, Creatinine 0.80, Estimated Creat Clear 54, Estimated GFR 92, Est GFR ( Amer) 111 D, Glucose 98, Calcium 8.6, Magnesium 1.7, Total Bilirubin 0.4, AST 76 H D, ALT 59 D, Alkaline Phosphatase 284 H, C-Reactive Protein 20.8 H, Total Protein 5.1 L, Albumin 2.7 L, Globulin 2.4, Albumin/Globulin Ratio 1.1 I & O for Labs for Last 24 Hours: Intake & Output 01/13/24 01/14/24 01/15/24 01/16/24 23:59 23:59 23:59 23:59 Intake Total 1500 / 1740 690 / 690 480 / 720 660 / 660 Output Total 2670 / 2670 200 / 200 700 / 700 250 / 250 Balance -1170 / -930 490 / 490 -220 / 20 410 / 410 Weight 71.713 kg 69.4 kg 69.218 kg Constitutional: Present no acute distress, average body habitus, chronically ill appearing and cooperative Head: Present atraumatic and normocephalic ENT: Present normal exam Respiratory: Present normal respiratory effort; Absent rhonchi, wheezes or crackles Cardiac: Present Reg Rate and Rhythm GI: Present soft and normal bowel sounds; Absent distention, tenderness, guarding or rebound Rectal (male): Present deferred (male): Present deferred Extremities: Present normal inspection and full ROM Skin: Present intact; Absent erythema Neuro: Present Grossly Intact, alert, awake, oriented x 3 and moves all extremities Assessment and Plan *Assessment and plan (1) Small bowel obstruction: Status: Resolved Category: Medical Code(s): K56.609 - Unspecified intestinal obstruction, unspecified as to partial versus complete obstruction (2) Abdominal pain: Status: Acute Qualifiers: Abdominal location: periumbilical Qualified Code(s): R10.33 - Periumbilical pain Category: Medical Code(s): R10.9 - Unspecified abdominal pain (3) Status post laparotomy with lysis of adhesions: Status: Acute Category: Surgical Code(s): Z98.890 - Other specified postprocedural states (4) Acute osteomyelitis of lumbar spine: Status: Acute Category: Medical Code(s): M46.26 - Osteomyelitis of vertebra, lumbar region (5) Hypertension: Status: Acute Qualifiers: Hypertension type: unspecified Qualified Code(s): I10 - Essential (primary) hypertension Category: Medical Code(s): I10 - Essential (primary) hypertension (6) Hyperlipidemia: Status: Acute Qualifiers: Hyperlipidemia type: unspecified Qualified Code(s): E78.5 - Hyperlipidemia, unspecified Category: Medical Code(s): E78.5 - Hyperlipidemia, unspecified (7) Hypothyroidism: Status: Chronic Qualifiers: Hypothyroidism type: acquired Qualified Code(s): E03.9 - Hypothyroidism, unspecified Category: Medical Code(s): E03.9 - Hypothyroidism, unspecified (8) COPD (chronic obstructive pulmonary disease): Status: Acute Qualifiers: COPD type: unspecified COPD Qualified Code(s): J44.9 - Chronic obstructive pulmonary disease, unspecified Category: Medical Code(s): J44.9 - Chronic obstructive pulmonary disease, unspecified (9) Biventricular ICD (implantable cardioverter-defibrillator) in place: Status: Acute Category: Surgical Code(s): Z95.810 - Presence of automatic (implantable) cardiac defibrillator Plan 83-year-old male with a PMHx of discitis, chronic back pain, atrial fibrillation, BiV ICD, hypertension, lung mass, and colitis presenting to the emergency department for evaluation of nausea vomiting abdominal pain. A CT scan revealed evidence of distended small bowel loops and mesenteric volvulus. patient underwent OR for surgical intervention. Patient admitted to medicine thereafter. Having slow improvement in bowel function. Tolerating advancement of diet. Tolerating full liquids. Stable to discharge. Awaiting placement. Problems addressed as follows: Acute abdominal pain likely secondary to SBO s/p laparotomy with lysis of adhesions Postop ileus - Discussed case with surgery this morning, advance to bland. Continue to monitor. Stable to discharge. Awaiting placement. -Continue hydrocodone every 8 hours as needed. 5 mg/325 mg. Continue Tylenol 650 every 4 hours as needed. Toradol 15 mg every 6 hours as needed for pain. Necessitating close monitoring for toxicity risk - Zofran for nausea as needed -White cell count remains normal at 8.6. CRP 20. ESR 73. Inflammatory markers relatively stable. Repeat CBC, CMP, magnesium, CRP ordered for the morning. Suspected acute OM of L-spine - Image concerning for discitis with endplate destruction. Completed course of vancomycin and Zosyn on 01/09. -CRP 20, ESR down to 63. -Has follow-up with infectious disease at [facility] next Thursday Stable chronic conditions: Hypertension hyperlipidemia hypothyroidism and COPD: Synthroid 100 mcg Entresto, bisoprolol On room air -Biventricular ICD in place: Continue broth setter Monitor for chest pain and arrhythmia on lovenox for DVT ppx On Protonix for GI bleed protection Full code [place] diet
[2024-01-16] MEDS: HYDROCODONE/APAP 5/325 MG TABLET 1 TAB PO ×2 (14:08→21:48)
[2024-01-16] MEDS: SIMETHICONE 80MG CHEWABLE TABLET 160 MG PO (17:07)
[2024-01-16] MEDS: ONDANSETRON 4MG/2ML VIAL 4 MG IV (17:22)
--- NOTE | 2024-01-16 17:36 | PC.NURSE ---
T approx. 1650 pt screamed and this RN and another RN went to bedside. Pt c/o gas pain. zMD called and ordered Gas-x PRN. MEds given and PT began throwing up approx. 10 mins. later. made aware. Orders to back diet back down to Full liquids.
[2024-01-16] MEDS: ACETAMINOPHEN 325MG TAB 650 MG PO (19:18)
[2024-01-16] MEDS: SODIUM CHLORIDE 0.9% 10ML VIAL 10 ML IV (20:43)
[2024-01-16] MEDS: PRAVASTATIN 40MG TAB 40 MG PO (20:43)
[2024-01-16] MEDS: TAMSULOSIN 0.4MG CAPSULE 0.400000000000000022 MG PO (20:43)
[2024-01-16] MEDS: PANTOPRAZOLE 40MG VIAL 40 MG IV (20:43)
[2024-01-16] MEDS: KETOROLAC 30MG/ML VIAL 15 MG IV (23:40)
[2024-01-17 04:00] VITALS: BP 99/64; PULSE 89; RESP 17; TEMP 36.7; O2SAT 97; BMI 22.1
[2024-01-17] MEDS: SIMETHICONE 80MG CHEWABLE TABLET 160 MG PO (05:20)
[2024-01-17] MEDS: HYDROCODONE/APAP 5/325 MG TABLET 1 TAB PO ×2 (05:57→15:32)
[2024-01-17] MEDS: LEVOTHYROXINE 175MCG (0.175MG) TAB 175 MCG PO (06:00)
[2024-01-17 08:00] VITALS: BP 90/51; PULSE 64; RESP 18; TEMP 36.6; O2SAT 96
[2024-01-17] MEDS: SACUBITRIL/VALSARTAN 24-26MG TABLET 1 EACH PO ×2 (08:14→20:18)
[2024-01-17] MEDS: GABAPENTIN 100MG CAPSULE 100 MG PO ×2 (08:14→20:17)
[2024-01-17] MEDS: CARVEDILOL 12.5MG TABLET 12.5 MG PO ×2 (08:14→20:17)
[2024-01-17] MEDS: APIXABAN 5MG TABLET 5 MG PO ×2 (08:15→20:18)
[2024-01-17] MEDS: MAGNESIUM OXIDE 400MG TABLET 400 MG PO (08:15)
[2024-01-17] MEDS: SPIRONOLACTONE 25MG TABLET 12.5 MG PO (08:15)
--- NOTE | 2024-01-17 08:33 | EXP.PN ---
Subjective *Date: 01/17/24 *Time: 11:20 Interval history: The patient is seen and examined today at bedside. I am accompanied by nursing staff (Isaias RN). Nursing staff report that the patient remains afebrile with stable heart rates, some low blood pressures and saturating appropriately on room air. Effective bowel elimination is reported. He is tolerating his diet. The patient reports some hiccups and odynophagia over the past 24 hours. Exam Data for Last 24 hours Vital signs and Labs for Last 24 Hours: Temp Pulse Resp BP Pulse Ox O2 Del Method O2 Flow Rate 98.0 F 89 17 99/64 L 97 Room Air 0 01/17/24 04:00 01/17/24 04:00 01/17/24 04:00 01/17/24 04:00 01/17/24 04:00 01/17/24 06:56 01/04/24 20:00 FiO2 28 12/29/23 19:46 Laboratory Results - last 24 hr 01/16/24 06:30: Magnesium 1.7 I & O for Last 24 hours: Intake & Output 01/14/24 01/15/24 01/16/24 01/17/24 23:59 23:59 23:59 23:59 Intake Total 690 / 690 480 / 720 820 / 820 120 / 120 Output Total 200 / 200 700 / 700 1475 / 1475 100 / 100 Balance 490 / 490 -220 / 20 -655 / -655 20 / 20 Weight 69.4 kg 69.218 kg 69.989 kg Constitutional Constitutional: no acute distress *Routine HEENT Exam Head: Present normocephalic Eye: Present EOMI ENT: Present mucous membranes moist *Routine Neck Exam Neck: Present supple; Absent lymphadenopathy *Routine Respiratory Exam Respiratory: Present CTA bilaterally, normal respiratory effort and symmetric chest movement *Routine Cardiovascular Exam Cardiovascular: Present RRR; Absent murmur *Routine Abdominal Exam Abdominal: Present soft and normoactive bowel sounds; Absent tenderness *Routine Extremities Exam Extremities: Absent cyanosis, clubbing or edema *Routine Skin Exam Skin: Present warm; Absent rash *Routine Neurological Exam Neurological: Present alert, oriented X3 and moving all extremities Routine Psychiatric Exam Psychiatric: Present normal affect and cooperative Assessment and Plan *Assessment and plan (1) Small bowel obstruction: Status: Resolved Category: Medical Code(s): K56.609 - Unspecified intestinal obstruction, unspecified as to partial versus complete obstruction (2) Abdominal pain: Status: Acute Qualifiers: Abdominal location: periumbilical Qualified Code(s): R10.33 - Periumbilical pain Category: Medical Code(s): R10.9 - Unspecified abdominal pain (3) Status post laparotomy with lysis of adhesions: Status: Acute Category: Surgical Code(s): Z98.890 - Other specified postprocedural states (4) Acute osteomyelitis of lumbar spine: Status: Acute Category: Medical Code(s): M46.26 - Osteomyelitis of vertebra, lumbar region (5) Hypertension: Status: Acute Qualifiers: Hypertension type: unspecified Qualified Code(s): I10 - Essential (primary) hypertension Category: Medical Code(s): I10 - Essential (primary) hypertension (6) Hyperlipidemia: Status: Acute Qualifiers: Hyperlipidemia type: unspecified Qualified Code(s): E78.5 - Hyperlipidemia, unspecified Category: Medical Code(s): E78.5 - Hyperlipidemia, unspecified (7) Hypothyroidism: Status: Chronic Qualifiers: Hypothyroidism type: acquired Qualified Code(s): E03.9 - Hypothyroidism, unspecified Category: Medical Code(s): E03.9 - Hypothyroidism, unspecified (8) COPD (chronic obstructive pulmonary disease): Status: Acute Qualifiers: COPD type: unspecified COPD Qualified Code(s): J44.9 - Chronic obstructive pulmonary disease, unspecified Category: Medical Code(s): J44.9 - Chronic obstructive pulmonary disease, unspecified (9) Biventricular ICD (implantable cardioverter-defibrillator) in place: Status: Acute Category: Surgical Code(s): Z95.810 - Presence of automatic (implantable) cardiac defibrillator Plan 83-year-old male with a PMHx of discitis, chronic back pain, atrial fibrillation on chronic Eliquis, BiV ICD, hypertension, lung mass, and colitis presenting to the emergency department for evaluation of nausea vomiting abdominal pain. A CT scan revealed evidence of distended small bowel loops and mesenteric volvulus. patient underwent surgical intervention. Patient admitted to medicine thereafter. Having slow improvement in bowel function. Tolerating advancement of diet. Tolerating full liquids. Stable to discharge. Awaiting placement. Problems addressed as follows: Acute abdominal pain likely secondary to SBO s/p laparotomy with lysis of adhesions Postop ileus -Discussed case with surgery this morning (Dr. Chatman), advance to bland. Continue to monitor bowel elimination. Stable to discharge. Awaiting placement. -Continue hydrocodone every 8 hours as needed. 5 mg/325 mg. Continue Tylenol 650 every 4 hours as needed. -Reglan for odynophagia, reflux, nausea -Trending labs and inflammatory markers. History of OM of L-spine -Image concerning for discitis with endplate destruction. Completed course of vancomycin and Zosyn on 01/09. -CRP 20, ESR down to 63. 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 We appreciate application consultant evaluation, surgical intervention and postoperative care recommendations. Case management is assisting with discharge planning which is to be determined. Barriers to discharge currently include identifying facility for transition of care and insurance certification process. Expected date of discharge once facility is identified and insurance certification is complete.
--- NOTE | 2024-01-17 09:24 | EXP.SURG.PN ---
Subjective Narrative: No nausea or vomiting. He does state his bowels moved yesterday. He complains of his esophagus hurting. He has occasional acute pains from his neck to his lower chest area in the midline. He states that when he swallows it feels like he swallowed gravel . While talking with the patient he had occasional acute pains. Exam Data for Last 24 hours Vital signs and Labs for Last 24 Hours: Temp Pulse Resp BP Pulse Ox O2 Del Method O2 Flow Rate 98 F 64 18 90/51 L 96 Room Air 0 01/17/24 08:00 01/17/24 08:00 01/17/24 08:00 01/17/24 08:00 01/17/24 08:00 01/17/24 08:46 01/04/24 20:00 FiO2 28 12/29/23 19:46 Laboratory Results - last 24 hr 01/16/24 06:30: Magnesium 1.7 I & O for Last 24 hours: Intake & Output 01/14/24 01/15/24 01/16/24 01/17/24 11:59 11:59 11:59 11:59 Intake Total 1020 / 1020 450 / 450 900 / 900 280 / 280 Output Total 1070 / 1070 400 / 400 550 / 550 1325 / 1325 Balance -50 / -50 50 / 50 350 / 350 -1045 / -1045 Weight 153 lb 152 lb 9.6 oz 154 lb 4.8 oz *Routine Abdominal Exam Comments: Slightly distended but soft. Minimal tenderness. Progress Note: A&P Assessment and plan (1) Small bowel obstruction: Status: Resolved Assessment and plan: Continue with current diet. Treat for possible esophagitis. May need a barium swallow. (2) Abdominal pain: Status: Acute (3) Status post laparotomy with lysis of adhesions: Status: Acute (4) Acute osteomyelitis of lumbar spine: Status: Acute (5) Hypertension: Status: Acute (6) Hyperlipidemia: Status: Acute (7) Hypothyroidism: Status: Chronic (8) COPD (chronic obstructive pulmonary disease): Status: Acute (9) Biventricular ICD (implantable cardioverter-defibrillator) in place: Status: Acute
[2024-01-17] MEDS: EMPAGLIFLOZIN 10MG TABLET 10 MG PO (09:55)
[2024-01-17] MEDS: METOCLOPRAMIDE HCL 10MG/2ML VIAL 5 MG IVP ×3 (11:30→22:56)
[2024-01-17 12:00] VITALS: BP 100/60; PULSE 89; RESP 17; TEMP 36.7; O2SAT 94
[2024-01-17 15:50] VITALS: BP 94/61; PULSE 92; RESP 18; TEMP 36.6; O2SAT 95
--- NOTE | 2024-01-17 17:36 | PC.NURSE ---
PT IS RESTING IN BED WITH CALL LIGHT WITHIN REACH. PT HAS COMPLAINED OF ESOPHAGEAL PAIN THROUGHOUT THE DAY. MD NOTIFIED DURING ROUNDS AND ORDERED REGLAN. PT HAS RECIEVED 2 DOSES AND STATES THAT HE THINKS IT IS HELPING. PT HAS NOT WANTED TO AMBULATE TODAY DUE TO PAIN, HE WAS OFFERED SEVERAL TIMES THROUGHOUT SHIFT. INSTRUCTED ON INCENTIVE SPIROMETER USE AND RETURNED DEMONSTRATION. PT HAD BOWEL MOVEMENT IN THE BED AROUND 1700. BOWEL SOUNDS ARE ACTIVE AND MIDLINE INCISION IS C/D/I. TORDOL ADMINISTERED PER SEP FOR PAIN IN THE ABDOMEN THAT THE PT RATED A 9. MEDICATION REDUCED PAIN. WILL CONTINUE TO MONITOR.
[2024-01-17 20:00] VITALS: BP 96/59; PULSE 97; RESP 17; TEMP 36.4; O2SAT 94; O2SAT 95
[2024-01-17] MEDS: PRAVASTATIN 40MG TAB 40 MG PO (20:17)
[2024-01-17] MEDS: PANTOPRAZOLE 40MG TABLET 40 MG PO (20:18)
[2024-01-17] MEDS: TAMSULOSIN 0.4MG CAPSULE 0.400000000000000022 MG PO (20:18)
[2024-01-17] MEDS: IPRATROPIUM/ALBUTEROL 3 ML NEB IH (23:06)
[2024-01-18] VITALS: BP 88/54; PULSE 80; RESP 16; TEMP 36.5; O2SAT 96
[2024-01-18 00:16] VITALS: PULSE 91
[2024-01-18 00:17] VITALS: PULSE 93
[2024-01-18 04:00] VITALS: BP 87/51; PULSE 94; RESP 16; TEMP 37.1; O2SAT 94; BMI 21.9
--- NOTE | 2024-01-18 05:14 | PC.NURSE ---
Pt continues to complain of pain with swallowing. He does feel like Reglan is helping . No further complaints through the night. He has rested well, voiding well and ambulated in the shin this shift.
[2024-01-18] MEDS: LEVOTHYROXINE 175MCG (0.175MG) TAB 175 MCG PO (06:05)
[2024-01-18] MEDS: METOCLOPRAMIDE HCL 10MG/2ML VIAL 5 MG IVP ×2 (06:05→12:28)
[2024-01-18] MEDS: IPRATROPIUM/ALBUTEROL 3 ML NEB IH (06:09)
[2024-01-18] MEDS: FLUTICASONE/UMECLIDIN/VILANTER 100/62.5/25MCG INHALER 1 PUFF IH (06:17)
[2024-01-18 06:59] LABS: Alanine Aminotransferase 44 U/L (12-78); Albumin Level 2.6 g/dl (3.5-5.0); Albumin/Globulin Ratio 1.1 (1.1-1.8); Alkaline Phosphatase 256 U/L (38-126); Anion Gap 6.6 mEq/L (5-15); Aspartate Amino Transferase 36 U/L (17-59); Bilirubin,Total 0.5 mg/dl (0.2-1.3); Blood Urea Nitrogen 37 mg/dl (9-20); Calcium 8.6 mg/dl (8.4-10.2); Carbon Dioxide 25 mmol/L (22.0-30.0); Chloride 107 mmol/L (98-107); Creatinine Clearance Estimated 54 mL/min (50-200); Estimated Glomerular Filt Rate 92 ml/min (>60); GFR (African American) 111 ML/MIN (>60); Globulin 2.4 g/dL (1.3-3.2); Glucose 87 mg/dl (74-100); Magnesium 1.7 mg/dl (1.6-2.3); Potassium 3.6 mmoL/L (3.5-5.1); Sodium 135 mmol/L (136-145)
[2024-01-18 07:01] LABS: Basophils # 0.1 K/mm3 (0-0.2); Basophils % 1.1 % (0.1-2.0); Eosinophils # 0.2 K/mm3 (0.0-0.4); Eosinophils % 2.1 % (0.1-12.0); Hematocrit 31.1 % (42.0-52.0); Hemoglobin 10.4 g/dL (14.1-18.0); Lymphocytes # 2.4 K/mm3 (0.7-4.5); Mean Corpuscular HGB Conc 33.4 g/dL (31.8-35.4); Mean Corpuscular Hemoglobin 32.8 pg (27.0-31.2); Mean Corpuscular Volume 98.1 fl (80-94); Mean Platelet Volume 8.2 fl (7.4-10.4); Monocytes # 0.6 K/mm3 (0.1-1.0); Monocytes % 7.2 % (1.7-9.3); Neutrophils # 5.6 K/mm3 (1.8-7.8); Neutrophils % 62.6 % (37.0-80.0); Platelet Count 230 K/mm3 (142-424); Red Blood Count 3.17 M/mm3 (4.60-6.20); Red Cell Distribution Width 15.4 % (11.5-17.5); White Blood Count 8.9 K/mm3 (4.8-10.8)
[2024-01-18 07:04] LABS: C-Reactive Protein 15.4 mg/L (0-4)
--- NOTE | 2024-01-18 07:41 | P.PN_ITS ---
Subjective Narrative: Patient states that he feels good today. Tolerating full liquids. Being treated for possible esophagitis and esophageal spasm. Exam Data for Last 24 hours Vital signs and Labs for Last 24 Hours: Temp Pulse Resp BP Pulse Ox O2 Del Method O2 Flow Rate 98.8 F 94 H 16 87/51 L 94 L Room Air 0 01/18/24 04:00 01/18/24 04:00 01/18/24 04:00 01/18/24 04:00 01/18/24 04:00 01/18/24 06:32 01/04/24 20:00 FiO2 28 12/29/23 19:46 Laboratory Results - last 24 hr 01/18/24 06:13: WBC 8.9, RBC 3.17 L, Hgb 10.4 L, Hct 31.1 L, MCV 98.1 H, MCH 32.8 H, MCHC 33.4, RDW 15.4, Plt Count 230, MPV 8.2, Neut % (Auto) 62.6, Lymph % (Auto) 27.0, [place] % (Auto) 7.2, Eos % (Auto) 2.1, Baso % (Auto) 1.1, Neut # (Auto) 5.6, Lymph # (Auto) 2.4, [place] # (Auto) 0.6, Eos # (Auto) 0.2, Baso # (Auto) 0.1, Sodium 135 L, Potassium 3.6, Chloride 107, Carbon Dioxide 25, Anion Gap 6.6, BUN 37 H, Creatinine 0.80, Estimated Creat Clear 54, Estimated GFR 92, Est GFR ( Amer) 111, Glucose 87, Calcium 8.6, Magnesium 1.7, Total Bilirubin 0.5, AST 36 D, ALT 44 D, Alkaline Phosphatase 256 H, C-Reactive Pr otein 15.4 H D, Total Protein 5.0 L, Albumin 2.6 L, Globulin 2.4, Albumin/Globulin Ratio 1.1 I & O for Last 24 hours: Intake & Output 01/15/24 01/16/24 01/17/24 01/18/24 11:59 11:59 11:59 11:59 Intake Total 450 / 450 900 / 900 280 / 280 520 / 520 Output Total 400 / 400 550 / 550 1325 / 1325 300 / 300 Balance 50 / 50 350 / 350 -1045 / -1045 220 / 220 Weight 153 lb 152 lb 9.6 oz 154 lb 4.8 oz 153 lb 9.6 oz *Routine Abdominal Exam Abdominal: Present soft; Absent tenderness Progress Note: A&P Assessment and plan (1) Small bowel obstruction: Status: Resolved (2) Abdominal pain: Status: Acute Assessment and plan: Continue current treatment. (3) Status post laparotomy with lysis of adhesions: Status: Acute (4) Acute osteomyelitis of lumbar spine: Status: Acute (5) Hypertension: Status: Acute (6) Hyperlipidemia: Status: Acute (7) Hypothyroidism: Status: Chronic (8) COPD (chronic obstructive pulmonary disease): Status: Acute (9) Biventricular ICD (implantable cardioverter-defibrillator) in place: Status: Acute
[2024-01-18 08:00] VITALS: BP 87/51; RESP 16; TEMP 36.7; O2SAT 96
[2024-01-18 08:01] LABS: Erythrocyte Sedimentation Rate 117 mm/hr (0-20)
[2024-01-18] MEDS: SACUBITRIL/VALSARTAN 24-26MG TABLET 1 EACH PO (08:07)
[2024-01-18] MEDS: EMPAGLIFLOZIN 10MG TABLET 10 MG PO (08:08)
[2024-01-18] MEDS: GABAPENTIN 100MG CAPSULE 100 MG PO (08:08)
[2024-01-18] MEDS: APIXABAN 5MG TABLET 5 MG PO (08:08)
[2024-01-18] MEDS: SPIRONOLACTONE 25MG TABLET 12.5 MG PO (08:08)
[2024-01-18] MEDS: MAGNESIUM OXIDE 400MG TABLET 400 MG PO (08:08)
[2024-01-18] MEDS: CARVEDILOL 12.5MG TABLET 12.5 MG PO (08:09)
--- NOTE | 2024-01-18 08:31 | DIET.NUTRFU ---
Refusing couple meals over weekend secondary to gas pains. BM noted on 01/16. Consumed 25% of full liquids on 01/16. Will add supplements, diet seemed to be tolerated at this time. Patient is protein depleted due to liquids diets and abdominal discomfort. Reglan started for odynophagia, reflux, nausea. labs reviewed
--- NOTE | 2024-01-18 08:57 | PC.NURSE ---
TECH NOTE; NURSE NOTIFIED OF BLOOD PRESSURE FOR 0800 VITAL SIGNS Marry WILCOX, SRNA
--- NOTE | 2024-01-18 11:26 | P.DS_ITS ---
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 Patient seen and evaluated after exploratory laparotomy for SBO. Currently obtunded under effect of sedation. History obatained by chart review and ED documentation. Patient had acute onset of periumbilical abdominal pain with associated bilious nausea and vomiting. He denies diarrhea. He denies recent bowel movement but reports that he has passed gas. Denied chest pain shortness of breath fever chills hemoptysis hematochezia melena hematemesis hematuria. A CT scan revealed evidence of distended small bowel loops and mesenteric volvulus. patient underwent OR for surgical intervention. Admitted for further management Hospital Course Hospital Course Hospital Course: The patient was admitted with general surgery consultation. He underwent exploratory laparotomy with lysis of adhesions on 12/27/2023. Imaging, labs, cultures and inflammatory markers were assessed and trended. He tolerated IV fluid resuscitation with TPN nutrition postoperatively. He completed a course of IV antibiotic therapy. He was provided with NG tube care with diminished output and subsequent discontinuation. His diet was slowly and gradually advance with good tolerance and effective bowel elimination. Ancillary services evaluated the patient for mobility. He identified improvement and requested to be discharged. Case management assisted with discharge needs including transitioning care to assisted facility. I spent 35 minutes in [id number] time with the patient, case management and nursing staff concerning the discharge process. We discussed the admitting diagnoses and hospital course. We discussed identified improvement and the patient's desire to be discharged. We reviewed inpatient studies and imaging. The patient voiced understanding on the importance of follow-up with his primary care provider and specialist(s). The patient plans to be compliant with the medication regimen prescribed and follow-up appointments. He understands that he can return to the emergency department with any sudden changes or concerns. His care will be transitioned to [facility] for ongoing intermediate care services. Exam Data for Last 24 hours Vital signs and Labs for Last 24 Hours: Temp Pulse Resp BP Pulse Ox O2 Del Method O2 Flow Rate 98.1 F 94 H 16 87/51 L 96 Room Air 0 01/18/24 08:00 01/18/24 04:00 01/18/24 08:00 01/18/24 08:00 01/18/24 08:00 01/18/24 09:00 01/04/24 20:00 FiO2 28 12/29/23 19:46 Laboratory Results - last 24 hr 01/18/24 06:13: WBC 8.9, RBC 3.17 L, Hgb 10.4 L, Hct 31.1 L, MCV 98.1 H, MCH 32.8 H, MCHC 33.4, RDW 15.4, Plt Count 230, MPV 8.2, Neut % (Auto) 62.6, Lymph % (Auto) 27.0, [place] % (Auto) 7.2, Eos % (Auto) 2.1, Baso % (Auto) 1.1, Neut # (Auto) 5.6, Lymph # (Auto) 2.4, [place] # (Auto) 0.6, Eos # (Auto) 0.2, Baso # (Auto) 0.1, ESR 117 H, Sodium 135 L, Potassium 3.6, Chloride 107, Carbon Dioxide 25, Anion Gap 6.6, BUN 37 H, Creatinine 0.80, Estimated Creat Clear 54, Estimated GFR 92, Est GFR ( Amer) 111, Glucose 87, Calcium 8.6, Magnesium 1.7, Total Bilirubin 0.5, AST 36 D, ALT 44 D, Alkaline Phosphatase 256 H, C- Reactive Protein 15.4 H D, Total Protein 5.0 L, Albumin 2.6 L, Globulin 2.4, Albumin/Globulin Ratio 1.1 I & O for Last 24 hours: Intake & Output 01/15/24 01/16/24 01/17/24 01/18/24 23:59 23:59 23:59 23:59 Intake Total 480 / 720 820 / 820 540 / 640 340 / 340 Output Total 700 / 700 1475 / 1475 100 / 100 300 / 300 Balance -220 / 20 -655 / -655 440 / 540 40 / 40 Weight 69.4 kg 69.218 kg 69.989 kg 69.672 kg Constitutional Constitutional: no acute distress *Routine HEENT Exam Head: Present normocephalic Eye: Present EOMI ENT: Present mucous membranes moist *Routine Neck Exam Neck: Present supple; Absent lymphadenopathy *Routine Respiratory Exam Respiratory: Present CTA bilaterally, normal respiratory effort and symmetric chest movement *Routine Cardiovascular Exam Cardiovascular: Present RRR; Absent murmur *Routine Abdominal Exam Abdominal: Present soft and normoactive bowel sounds; Absent tenderness *Routine Extremities Exam Extremities: Absent cyanosis, clubbing or edema *Routine Skin Exam Skin: Present warm; Absent rash *Routine Neurological Exam Neurological: Present alert, oriented X3 and moving all extremities Routine Psychiatric Exam Psychiatric: Present normal affect and cooperative Results Data Completed and Pending Labs on day of discharge: Labs from last 24 hours 01/18/24 06:13 WBC 8.9 RBC 3.17 L Hgb 10.4 L Hct 31.1 L MCV 98.1 H MCH 32.8 H MCHC 33.4 RDW 15.4 Plt Count 230 MPV 8.2 Neut % (Auto) 62.6 Lymph % (Auto) 27.0 [place] % (Auto) 7.2 Eos % (Auto) 2.1 Baso % (Auto) 1.1 Neut # (Auto) 5.6 Lymph # (Auto) 2.4 [place] # (Auto) 0.6 Eos # (Auto) 0.2 Baso # (Auto) 0.1 ESR 117 H Sodium 135 L Potassium 3.6 Chloride 107 Carbon Dioxide 25 Anion Gap 6.6 BUN 37 H Creatinine 0.80 Estimated Creat Clear 54 Estimated GFR 92 Est GFR ( Amer) 111 Glucose 87 Calcium 8.6 Magnesium 1.7 Total Bilirubin 0.5 AST 36 D ALT 44 D Alkaline Phosphatase 256 H C-Reactive Protein 15.4 H D Total Protein 5.0 L Albumin 2.6 L Globulin 2.4 Albumin/Globulin Ratio 1.1 DS: Diagnosis Discharge Diagnosis (1) Small bowel obstruction: Status: Resolved Code(s): K56.609 - Unspecified intestinal obstruction, unspecified as to partial versus complete obstruction (2) Abdominal pain: Status: Acute Code(s): R10.9 - Unspecified abdominal pain Qualifiers: Abdominal location: periumbilical Qualified Code(s): R10.33 - Periumbilical pain (3) Status post laparotomy with lysis of adhesions: Status: Acute Code(s): Z98.890 - Other specified postprocedural states (4) Acute osteomyelitis of lumbar spine: Status: Acute Code(s): M46.26 - Osteomyelitis of vertebra, lumbar region (5) Hypertension: Status: Acute Code(s): I10 - Essential (primary) hypertension Qualifiers: Hypertension type: unspecified Qualified Code(s): I10 - Essential (primary) hypertension (6) Hyperlipidemia: Status: Acute Code(s): E78.5 - Hyperlipidemia, unspecified Qualifiers: Hyperlipidemia type: unspecified Qualified Code(s): E78.5 - Hyperlipidemia, unspecified (7) Hypothyroidism: Status: Chronic Code(s): E03.9 - Hypothyroidism, unspecified Qualifiers: Hypothyroidism type: acquired Qualified Code(s): E03.9 - Hypothyroidism, unspecified (8) COPD (chronic obstructive pulmonary disease): Status: Acute Code(s): J44.9 - Chronic obstructive pulmonary disease, unspecified Qualifiers: COPD type: unspecified COPD Qualified Code(s): J44.9 - Chronic obstructive pulmonary disease, unspecified (9) Biventricular ICD (implantable cardioverter-defibrillator) in place: Status: Acute Code(s): Z95.810 - Presence of automatic (implantable) cardiac defibrillator Meds Home Medications and Allergies Home Medications Medication Instructions Recorded Confirmed Type tamsulosin 0.4 mg capsule 0.4 mg PO HS 01/15/23 12/28/23 History apixaban 5 mg tablet (Eliquis) 5 mg PO BID 01/20/23 12/28/23 History fluticasone fur. 100 mcg-umeclid 1 inh inhalation DAILY 11/02/23 12/28/23 History 62.5 mcg-vilant 25 mcg inhalat.powder (Trelegy Ellipta) pravastatin 40 mg tablet 40 mg PO HS 11/02/23 12/28/23 History empagliflozin 10 mg tablet 10 mg PO DAILY 12/28/23 12/28/23 History gabapentin 100 mg capsule 100 mg PO BID 12/28/23 12/28/23 History levothyroxine 175 mcg tablet 175 mcg PO DAILY 12/28/23 12/28/23 History pantoprazole 40 mg tablet,delayed 40 mg PO DAILY 12/28/23 12/28/23 History release spironolactone 25 mg tablet 12.5 mg PO DAILY 12/28/23 12/28/23 History hydrocodone 5 mg-acetaminophen 325 1 tab PO Q6HP PRN Mild To Moderate 06/24/24 Rx mg tablet Pain (1-6) 3 days #12 tabs allopurinol 300 mg tablet 300 mg PO DAILY #90 tabs 01/07/24 Rx carvedilol 3.125 mg tablet 3.125 mg PO BID #30 tabs 01/18/24 Rx sacubitril 24 mg-valsartan 26 mg 0.5 tab PO BID #15 tabs 01/18/24 Rx tablet (Entresto) New Prescriptions to Start Prescriptions: hydrocodone-acetaminophen José Miguel Adams carvedilol Mamadou Desai sacubitril-valsartan [Entresto] Mamadou Desai Allergies Allergy/AdvReac Type Severity Reaction Status Date / Time No Known Allergies Allergy Verified 06/24/23 10:25 Discharge Plan Disposition Patient Disposition: [facility] Condition: Fair Discharge Order Discharge Orders: Discharge Order (Routine); Ordered 01/18/24 Ordered By: Mamadou Desai Follow up Plan Follow up with: Johnnie Lincoln MD [Staff Physician] - 1 week Parag Sood MD [Staff Physician] - 1 week (appointment with Dr. Washington on [facility] [address] [facility] 01/19 at 3:30) Prescriptions/Medication Reconciliation: New hydrocodone-acetaminophen 5-325 mg Tablet 1 tab PO Q6HP PRN (Reason: Mild To Moderate Pain (1-6)) 3 Days Qty: 12 0RF carvedilol 3.125 mg Tablet 3.125 mg PO BID Qty: 30 0RF Entresto 24-26 mg Tablet 0.5 tab PO BID Qty: 15 0RF Continued Eliquis 5 mg tablet 5 mg PO BID allopurinol 300 mg tablet 300 mg PO DAILY Qty: 90 1RF tamsulosin 0.4 mg Capsule 0.4 mg PO HS pravastatin 40 mg tablet 40 mg PO HS Trelegy Ellipta 100-62.5-25 mcg blister with device 1 inh INHALATION DAILY levothyroxine 175 mcg Tablet 175 mcg PO DAILY spironolactone 25 mg Tablet 12.5 mg PO DAILY pantoprazole 40 mg Tablet,Delayed Release (Dr/Ec) 40 mg PO DAILY gabapentin 100 mg Capsule 100 mg PO BID empagliflozin 10 mg Tablet 10 mg PO DAILY Discontinued Entresto 97-103 mg tablet 1 tab PO BID Patient Comments: TAKE 1 TABLET TWICE DAILY carvedilol 12.5 mg Tablet 12.5 mg PO BID Rx Instructions: must administer with a meal/food oxycodone 15 mg Tablet 7.5 mg PO Q6HP PRN (Reason: Moderate Pain (Scale Score 5-6)) piperacillin-tazobactam 4.5 gram Recon Soln 4.5 g IV Q8H vancomycin in dextrose 5 % 1.25 gram/250 mL Solution 1.25 g IV Q24H Problem Reconciliation Problems Reviewed?: Yes Patient Discharge Instructions ACTIVITY: Continue current activity and Ambulate as tolerated DIET: continue same diet and advance to your usual diet Patient Instructions: DI for Small Bowel Obstruction, DI for Exploratory Laparotomy, DI for Surgical Site Infection, Catheter-Associated Urinary Tract Infection Providers Primary Care Provider: Provider,Referral Admit Provider: Scott Yao Attending Provider: Scott Yao
[2024-01-18 11:56] VITALS: BP 108/59; PULSE 77; RESP 18; TEMP 37; O2SAT 96
== END 2024-01-18 15:41 | DRG 336 ==
LOC: ER 17:25 → OR 18:20 → 2ND 20:37
PROVIDERS: Internal Medicine Adolescent Medicine; Nurse Practitioner Family; Physician Assistant; Surgery; Admitting Provider Internal Medicine; Emergency Provider Student in an Organized Health Care Education/Training Program; Visit Provider Internal Medicine
PROC: 0DN80ZZ Release Small Intestine, Open Approach (ICD-10-PCS; CPT 49000; principal; 2023-12-27 18:30)
DX: K56.50 Intestinal adhesions [bands], unspecified as to partial versus complete obstruction (principal); I50.22 Chronic systolic (congestive) heart failure; K91.89 Other postprocedural complications and disorders of digestive system; K56.2 Volvulus; K56.7 Ileus, unspecified; I48.91 Unspecified atrial fibrillation; E78.5 Hyperlipidemia, unspecified; I11.0 Hypertensive heart disease with heart failure; I71.40 Abdominal aortic aneurysm, without rupture, unspecified; Z95.810 Presence of automatic (implantable) cardiac defibrillator; Z87.891 Personal history of nicotine dependence; G89.29 Other chronic pain; E03.9 Hypothyroidism, unspecified; J44.9 Chronic obstructive pulmonary disease, unspecified; M46.46 Discitis, unspecified, lumbar region
CPT/HCPCS: 44005; 36415; 74018; 74177; 74250; 80048; 80053; 80061; 80202; 81001; 82465; 82962; 83605; 83690; 83735; 84100; 84478; 85007; 85025; 85610; 85651; 86140; 94640; 94667; 94760; 94761; 97110; 97116; 97162; 97166; 97530; 97535; 99285; J0131; J0690; J1170; J1650; J1885; J2250; J2270; J2405; J2543; J2765; J3010; J3475; J3480; J7120; J7620; Q9963; Q9967

== ENCOUNTER 2024-02-02 09:53 | Emergency (ER) | payer MEDICARE, SELFPAY ==
[2024-02-02 10:02] VITALS: BP 122/75; PULSE 53; RESP 20; TEMP 36.8; O2SAT 97; BMI 21.2
[2024-02-02] MEDS: ONDANSETRON 4MG/2ML VIAL 4 MG IV (10:07)
[2024-02-02] MEDS: FENTANYL 100MCG/2ML VIAL 50 MCG IV (10:07)
[2024-02-02 10:08] LABS: Basophils # 0.1 K/mm3 (0-0.2); Basophils % 0.8 % (0.1-2.0); Eosinophils # 0.1 K/mm3 (0.0-0.4); Eosinophils % 1.5 % (0.1-12.0); Hematocrit 36.2 % (42.0-52.0); Hemoglobin 12.1 g/dL (14.1-18.0); Lymphocytes # 2.2 K/mm3 (0.7-4.5); Mean Corpuscular HGB Conc 33.5 g/dL (31.8-35.4); Mean Corpuscular Hemoglobin 32.9 pg (27.0-31.2); Mean Corpuscular Volume 98.1 fl (80-94); Mean Platelet Volume 8.8 fl (7.4-10.4); Monocytes # 0.5 K/mm3 (0.1-1.0); Monocytes % 5.5 % (1.7-9.3); Neutrophils # 5.5 K/mm3 (1.8-7.8); Neutrophils % 66.1 % (37.0-80.0); Platelet Count 206 K/mm3 (142-424); Red Blood Count 3.69 M/mm3 (4.60-6.20); Red Cell Distribution Width 15.5 % (11.5-17.5); White Blood Count 8.4 K/mm3 (4.8-10.8)
--- NOTE | 2024-02-02 10:10 | HMH.EDGENADL ---
Discharge Plan Disposition Patient Disposition: Home, Self-Care Condition: Good Prescriptions Prescriptions: No Action Eliquis 5 mg tablet 5 mg PO BID allopurinol 300 mg tablet 300 mg PO DAILY Qty: 90 1RF gabapentin 100 mg capsule 100 mg PO BID Qty: 60 2RF hydrocodone-acetaminophen 5-325 mg tablet 1 tab PO Q6H PRN (Reason: pain) Qty: 120 0RF tamsulosin 0.4 mg Capsule 0.4 mg PO HS pravastatin 40 mg tablet 40 mg PO HS Trelegy Ellipta 100-62.5-25 mcg blister with device 1 inh INHALATION DAILY levothyroxine 175 mcg Tablet 175 mcg PO DAILY spironolactone 25 mg Tablet 12.5 mg PO DAILY pantoprazole 40 mg Tablet,Delayed Release (Dr/Ec) 40 mg PO DAILY empagliflozin 10 mg Tablet 10 mg PO DAILY carvedilol 3.125 mg Tablet 3.125 mg PO BID Qty: 30 0RF Entresto 24-26 mg Tablet 0.5 tab PO BID Qty: 15 0RF Referrals Follow up/Referrals: Provider,Referral, MD [Primary Care Provider] - See instructions Activity Restrictions/Add. Instructions Additional Instructions/Restrictions: You were evaluated in the emergency department today. You have a hernia that was initially unable to be reduced, but Dr. Sood with general surgery was able to reduce it. You have an appointment scheduled with him tomorrow. It is very important that you follow-up with him tomorrow for reassessment of this hernia. Continue periodically checking your hernia to make sure that you are able to reduce it in your nursing facility. Please return to the emergency department for new or worsening symptoms, such as inability to reduce the hernia, intractable nausea and vomiting, significant pain, or other concerns. Clinical Impressions Clinical Impression: Hernia, inguinal, left Instructions Patient Instructions: DI for Groin Hernia Discharge ED Provider: Yani Piña General Adult HPI General Chief complaint: Recheck/Abnormal Lab/Rx Stated complaint: Abdominal pain Time Seen by Provider: 02/02/24 10:06 Mode of Arrival: EMS Source of Information: Patient Limitations: No Limitations Description of Symptoms (Recalled from ER Triage Doc. by RN): pt to ed c/o umbilical hernia. pt states he had a hernia repair x2 montha ago. pt states pcp tried to manipulate hernia with no success. History of Present Illness HPI narrative: This patient is an 83-year-old male with a history of small bowel obstruction/volvulus status post laparotomy and lysis of adhesions 12/27/2023, CHF with BiV ICD, COPD, hypertension, hyperlipidemia, hypothyroidism, atrial fibrillation on Eliquis presented to the emergency department for evaluation with concern for hernia pain. Patient has a left inguinal hernia, and he states that usually he is able to reduce it on exam. He states that he was told to do this several times a day, but he has not been doing it recently. Today, he noticed pain and has not been able to reduce it. He also notes a decrease in bowel movements, but he still passing gas. No fevers, nausea, vomiting, or other concerns. He is sent from nursing facility, and nursing facility reports they were unable to reduce his hernia. EMS states patient was stable en route. Related Data Home Medications Medication Instructions Recorded Confirmed tamsulosin 0.4 mg capsule 0.4 mg PO HS 01/15/23 02/02/24 apixaban 5 mg tablet (Eliquis) 5 mg PO BID 01/20/23 02/02/24 fluticasone fur. 100 mcg-umeclid 1 inh inhalation DAILY 11/02/23 02/02/24 62.5 mcg-vilant 25 mcg inhalat.powder (Trelegy Ellipta) pravastatin 40 mg tablet 40 mg PO HS 11/02/23 02/02/24 empagliflozin 10 mg tablet 10 mg PO DAILY 12/28/23 02/02/24 levothyroxine 175 mcg tablet 175 mcg PO DAILY 12/28/23 02/02/24 pantoprazole 40 mg tablet,delayed 40 mg PO DAILY 12/28/23 02/02/24 release spironolactone 25 mg tablet 12.5 mg PO DAILY 12/28/23 02/02/24 Previous Rx's Medication Instructions Recorded allopurinol 300 mg tablet 300 mg PO DAILY #90 tabs 01/07/24 carvedilol 3.125 mg tablet 3.125 mg PO BID #30 tabs 01/18/24 sacubitril 24 mg-valsartan 26 mg 0.5 tab PO BID #15 tabs 01/18/24 tablet (Entresto) gabapentin 100 mg capsule 100 mg PO BID #60 caps 01/20/24 hydrocodone 5 mg-acetaminophen 325 1 tab PO Q6H PRN pain #120 tabs 02/02/24 mg tablet Allergies Allergy/AdvReac Type Severity Reaction Status Date / Time No Known Allergies Allergy Verified 02/02/24 13:58 [facility] Disclaimer: The information contained in this section may have been updated after the patient was seen, as this information can be updated by other users. Medical History Gastroesophageal reflux Aortic regurgitation Nonsustained ventricular tachycardia Back pain Pacemaker Bilateral leg weakness Small bowel obstruction Postoperative ileus Hypothyroidism Hyperlipidemia COPD (chronic obstructive pulmonary disease) Acute osteomyelitis of lumbar spine CHF (congestive heart failure) Gout Benign prostatic hyperplasia Renal mass Lung mass Septic shock Sepsis Pneumonia Acute neck pain Acute low back pain Abdominal pain Acute exacerbation of chronic low back pain Atrial fibrillation AAA (abdominal aortic aneurysm) Atrial fibrillation with RVR Chest pain H/O medication noncompliance 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) Palpitations Atrial flutter Thoracic ascending aortic aneurysm COPD (chronic obstructive pulmonary disease) Chest pain Atrial fibrillation Chronic systolic heart failure Dyspnea HLD (hyperlipidemia) HTN (hypertension) Surgical History Hx of atrioventricular node ablation Status post laparotomy with lysis of adhesions H/O cataract removal with insertion of prosthetic lens History of exploratory laparotomy Biventricular ICD (implantable cardioverter-defibrillator) in place Automatic implantable cardioverter-defibrillator in situ Family History Other Family history of stroke Social History Smoking Status: Former smoker how long ago did patient quit smokin years ago alcohol intake: former substance use type: denies use current occupational status: retired Travel in the last 8 weeks: None household members: none housing: senior living caffeine: Yes (coffee) physical activity: walking ROS Obtained: Yes All systems reviewed & no additional complaints except as documented Physical Exam General General appearance: alert and in no apparent distress Head Head exam: atraumatic and normocephalic Eye Eye exam: Present normal appearance, PERRL and EOMI ENT ENT exam: Present normal exam, normal oropharynx, mucous membranes moist and normal external ear exam Neck Neck exam: Present normal inspection, full ROM and trachea midline; Absent tenderness Chest Chest inspection: Present normal inspection and symmetric chest wall rise; Absent tenderness Respiratory Respiratory exam: Present normal lung sounds bilaterally; Absent respiratory distress, wheezes, stridor or accessory muscle use Cardiovascular Cardiovascular exam: Present regular rate and normal rhythm Abdominal Exam Abdominal exam: Present soft; Absent distention, tenderness or guarding Comment: Left inguinal hernia that is tender to palpation with no overlying skin color changes. Hernia is soft. Unable to reduce without pain medication. Extremities Exam Extremities exam: Present normal inspection, full ROM and normal capillary refill; Absent tenderness or edema Back Exam Back exam: Present normal inspection and full ROM; Absent tenderness Neurological Exam Neurological exam: Present alert, oriented X3, CN II-XII intact and normal gait; Absent motor sensory deficit Psychiatric Psychiatric exam: Present normal affect and normal mood Skin Skin exam: Present warm and dry Medical Decision Making Medical Records Medical records reviewed: Yes I reviewed the patient's medical records. Richar Inquiry Pt receiving controlled substance: No Vital Signs: 02/02/24 10:02 02/02/24 10:20 02/02/24 10:30 Temperature 98.2 F Temperature Source Oral Pulse Rate 92 H 86 Pulse Rate [Left Radial] 53 L Respiratory Rate 20 Blood Pressure 111/73 125/70 Blood Pressure [Right Arm] 122/75 Blood Pressure Mean 83 86 Blood Pressure Mean [Right Arm] 90 02 Sat by Pulse Oximetry 97 96 97 Oxygen Delivery Method Room Air 02/02/24 11:00 02/02/24 11:48 Temperature 98.0 F Temperature Source Pulse Rate 73 73 Pulse Rate [Left Radial] Respiratory Rate 19 Blood Pressure 115/77 115/77 Blood Pressure [Right Arm] Blood Pressure Mean 86 Blood Pressure Mean [Right Arm] 02 Sat by Pulse Oximetry 96 Oxygen Delivery Method Lab Data Lab results reviewed: Yes I reviewed the patient's lab results. Lab Results 02/02/24 10:00: WBC 8.4, RBC 3.69 L, Hgb 12.1 L, Hct 36.2 L, MCV 98.1 H, MCH 32.9 H, MCHC 33.5, RDW 15.5, Plt Count 206, MPV 8.8, Neut % (Auto) 66.1, Lymph % (Auto) 26.0, [place] % (Auto) 5.5, Eos % (Auto) 1.5, Baso % (Auto) 0.8, Neut # (Auto) 5.5, Lymph # (Auto) 2.2, [place] # (Auto) 0.5, Eos # (Auto) 0.1, Baso # (Auto) 0.1, Sodium 140, Potassium 4.0, Chloride 110 H, Carbon Dioxide 28, Anion Gap 6.0, BUN 21 H, Creatinine 0.90, Estimated Creat Clear 52, Estimated GFR 80, Est GFR ( Amer) 97, Glucose 113 H, Lactate 1.3, Calcium 8.7, Total Bilirubin 0.2, AST 34, ALT 28, Alkaline Phosphatase 203 H, Total Protein 5.5 L, Albumin 2.9 L, Globulin 2.6, Albumin/Globulin Ratio 1.1, Lipase 42 02/02/24 10:00 02/02/24 10:00 Orders (Tests/Meds): ED MEDICATIONS Discontinued Medications Generic Name Dose Route Start Last Admin Trade Name Freq PRN Reason Stop Dose Admin Fentanyl Citrate 50 mcg 02/02/24 09:53 02/02/24 10:07 Fentanyl 100mcg/2ml Vial IV 02/02/24 09:54 50 mcg ONCE ONE Administration Ondansetron HCl 4 mg 02/02/24 09:53 02/02/24 10:07 Ondansetron 4mg/2ml Vial IV 02/02/24 09:54 4 mg ONCE ONE Administration ORDERS Category Date Time Status Consult to General Surgery [CONS] Stat Cons 02/02/24 10:22 Ordered Complete Blood Count Auto Diff Stat Lab 02/02/24 10:00 Completed Comprehensive Metabolic Panel Stat Lab 02/02/24 10:00 Completed Lactic Acid Stat Lab 02/02/24 10:00 Completed Lipase Stat Lab 02/02/24 10:00 Completed Medical Decision Narrative: In summary, this patient is a 83-year-old male presenting to the Emergency Department for evaluation of hernia that is painful and he is unable to reduce it. Differential diagnoses considered include but are not limited to incarcerated hernia, strangulated hernia, constipation, bowel obstruction. Ruling out the most morbid conditions drove assessment. It should be noted patient's history includes CHF, COPD, hypertension, hyperlipidemia, hypothyroidism, atrial fibrillation which may or may not be at goal therapy. This complicates all aspects of care by increasing patient's risk for morbidity. I reviewed patient's past medical records and noted his admissions for his volvulus with bowel obstruction as well as postoperative ileus. On exam, the patient is nontoxic-appearing. He is resting comfortably with benign abdominal exam. His hernia is soft and has no overlying skin color changes, but I am not able to reduce it on exam without pain medication. Has had no vomiting and is still passing gas. Workup included, CMP, lipase, lactic acid. Will administer IV fentanyl and Zofran and assess for ability to reduce hernia. I was still unable to reduce the hernia, so I had an interactive discussion with Dr. Sood with general surgery who came down and reduced it successfully. He advised that the patient already has an appointment to see him in clinic tomorrow, and he advised discharge with plan to keep that appointment. Patient agreeable with this. He is feeling much better and hernia soft and reducible on repeat assessment. Labs are reassuring without other acutely concerning abnormalities. Given this, patient was discharged back to nursing facility with instructions to keep close follow-up with general surgery tomorrow. Strict return precautions were given. Critical Care Critical Care Time Critical Care Time: No
[2024-02-02 10:17] LABS: Chloride 110 mmol/L (98-107); Sodium 140 mmol/L (136-145)
[2024-02-02 10:19] LABS: Alanine Aminotransferase 28 U/L (12-78); Aspartate Amino Transferase 34 U/L (17-59); Blood Urea Nitrogen 21 mg/dl (9-20); Creatinine Clearance Estimated 52 mL/min (50-200); Estimated Glomerular Filt Rate 80 ml/min (>60); GFR (African American) 97 ML/MIN (>60); Lactic Acid 1.3 mmol/L (0.7-2.1)
[2024-02-02 10:20] VITALS: BP 111/73; PULSE 92; O2SAT 96
[2024-02-02 10:20] LABS: Albumin Level 2.9 g/dl (3.5-5.0); Albumin/Globulin Ratio 1.1 (1.1-1.8); Alkaline Phosphatase 203 U/L (38-126); Bilirubin,Total 0.2 mg/dl (0.2-1.3); Calcium 8.7 mg/dl (8.4-10.2); Carbon Dioxide 28 mmol/L (22.0-30.0); Globulin 2.6 g/dL (1.3-3.2); Glucose 113 mg/dl (74-100); Lipase 42 U/L (23-300); Total Protein,Serum 5.5 g/dl (6.3-8.2)
[2024-02-02 10:30] VITALS: BP 125/70; PULSE 86; O2SAT 97
--- NOTE | 2024-02-02 10:31 | PC.NURSE ---
calling Cards for appointment at this time.
--- NOTE | 2024-02-02 10:33 | PC.NURSE ---
left voicemail for Cards office to call me back to set up appointment.
--- NOTE | 2024-02-02 10:55 | PC.NURSE ---
report called to cristy at [facility]. attempted to call EMS for transportation back to facility, but no answer.
[2024-02-02 11:00] VITALS: BP 115/77; PULSE 73; O2SAT 96
[2024-02-02 11:48] VITALS: BP 115/77; PULSE 73; RESP 19; TEMP 36.7
== END 2024-02-02 11:49 | disposition home or self-care (01) ==
PROVIDERS: Emergency Provider Emergency Medicine
DX: K40.90 Unilateral inguinal hernia, without obstruction or gangrene, not specified as recurrent (principal); I11.0 Hypertensive heart disease with heart failure; I50.9 Heart failure, unspecified; J44.9 Chronic obstructive pulmonary disease, unspecified; E03.9 Hypothyroidism, unspecified; E78.5 Hyperlipidemia, unspecified; I48.0 Paroxysmal atrial fibrillation; Z87.891 Personal history of nicotine dependence; Z95.810 Presence of automatic (implantable) cardiac defibrillator
CPT/HCPCS: 80053; 83605; 83690; 85025; 96374; 96375; 99284; J2405; J3010

== ENCOUNTER 2024-02-03 10:50 | Outpatient (CLI) | payer MEDICARE, SELFPAY ==
[2024-02-03 10:54] LABS: Microscopic, Urine URINE MICROSCOPIC (MICROSCOPIC)
[2024-02-03 11:31] LABS: Basophils # 0.1 K/mm3 (0-0.2); Basophils % 0.5 % (0.1-2.0); Eosinophils # 0.1 K/mm3 (0.0-0.4); Eosinophils % 1.4 % (0.1-12.0); Hematocrit 39.5 % (42.0-52.0); Hemoglobin 12.8 g/dL (14.1-18.0); Lymphocytes # 2.9 K/mm3 (0.7-4.5); Lymphocytes % 28.5 % (10-50); Mean Corpuscular HGB Conc 32.3 g/dL (31.8-35.4); Mean Corpuscular Hemoglobin 31.9 pg (27.0-31.2); Mean Corpuscular Volume 98.8 fl (80-94); Mean Platelet Volume 8.6 fl (7.4-10.4); Monocytes # 0.5 K/mm3 (0.1-1.0); Monocytes % 4.9 % (1.7-9.3); Neutrophils # 6.5 K/mm3 (1.8-7.8); Neutrophils % 64.8 % (37.0-80.0); Platelet Count 237 K/mm3 (142-424); Red Cell Distribution Width 15.3 % (11.5-17.5)
[2024-02-03 11:42] LABS: Appearance,Urine CLOUDY (Clear); Bilirubin,Urine Negative (Negative); Blood, Urine 1+ (Negative); Color,Urine YELLOW (Yellow); Glucose,Urine (UA) 2+ (Negative); Ketones,Urine Negative (Negative); Leukocyte Esterase,Urine 2+ (Negative); Nitrate,Urine Negative (Negative); Protein,Urine 1+ (Negative); Specific Gravity, Urine 1.015 (1.005-1.030); Urobilinogen,Urine 0.2 EU/dl (0.2)
[2024-02-03 12:05] LABS: WBC,Urine 20-50 #/hpf (0-3)
[2024-02-03 12:40] LABS: Anion Gap 8.4 mEq/L (5-15); Blood Urea Nitrogen 22 mg/dl (9-20); Calcium 9.3 mg/dl (8.4-10.2); Carbon Dioxide 29 mmol/L (22.0-30.0); Chloride 105 mmol/L (98-107); Estimated Glomerular Filt Rate 92 ml/min (>60); GFR (African American) 111 ML/MIN (>60); Glucose 94 mg/dl (74-100); Potassium 4.4 mmoL/L (3.5-5.1); Sodium 138 mmol/L (136-145)
== END 2024-02-03 23:59 | disposition home or self-care (01) ==
LOC: LAB 10:51
PROVIDERS: PCP Family Medicine; Visit Provider Surgery
DX: K40.90 Unilateral inguinal hernia, without obstruction or gangrene, not specified as recurrent (principal)
CPT/HCPCS: 36415; 80048; 81001; 85025; 87086; 87088; 87186

== ENCOUNTER 2024-02-25 10:10 | Day surgery (SDC) | payer MEDICARE, SELFPAY ==
[2024-02-24 09:38] VITALS: BMI 21.6
[2024-02-25] VITALS (9 sets, daily range): BP systolic 125–146; BP diastolic 61–93; PULSE 77–110; RESP 15–18; TEMP 36.2–36.6; O2SAT 96–100
[2024-02-25] MEDS: LACTATED RINGERS 1000ML 1,000 ML 25 ML IV (10:52)
--- NOTE | 2024-02-25 11:37 | P.PNANES_ITS ---
[facility] Disclaimer: The information contained in this section may have been updated after the patient was seen, as this information can be updated by other users. Medical History Gastroesophageal reflux Aortic regurgitation Nonsustained ventricular tachycardia Back pain Pacemaker Bilateral leg weakness Small bowel obstruction Postoperative ileus Hypothyroidism Hyperlipidemia COPD (chronic obstructive pulmonary disease) Acute osteomyelitis of lumbar spine CHF (congestive heart failure) Gout Benign prostatic hyperplasia Renal mass Lung mass Septic shock Sepsis Pneumonia Acute neck pain Acute low back pain Abdominal pain Acute exacerbation of chronic low back pain Atrial fibrillation AAA (abdominal aortic aneurysm) Atrial fibrillation with RVR Chest pain H/O medication noncompliance 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) Palpitations Atrial flutter Thoracic ascending aortic aneurysm COPD (chronic obstructive pulmonary disease) Chest pain Atrial fibrillation Chronic systolic heart failure Dyspnea HLD (hyperlipidemia) HTN (hypertension) Surgical History Status post laparotomy with lysis of adhesions Hx of atrioventricular node ablation H/O cataract removal with insertion of prosthetic lens History of exploratory laparotomy Biventricular ICD (implantable cardioverter-defibrillator) in place Automatic implantable cardioverter-defibrillator in situ Family History Other Family history of stroke Social History (Updated 02/25/24 @ 10:53 by Patric Leary RN) Smoking Status: Former smoker how long ago did patient quit smokin years ago alcohol intake: never substance use type: denies use current occupational status: retired Travel in the last 8 weeks: None household members: none housing: senior living caffeine: Yes (coffee) physical activity: walking [facility] Anesthesia Checklist Patient Identification Patient Identification: Arm Band and Verbal (Name & ) Structural Data Admitted From: Long-term Nursing Facility Planned Operative Procedure/s: LEFT open IHR Consent for Planned Operative Procedure(s) Verified: Yes Verified Documents: Surgical Consent and History and Physical NPO Status Verified Time NPO: 00:00 Chart Verification Results Verified: CBC, BMP, ECG and Chest Xray Additional verifications Fingerstick Blood Glucose: 114 Patient : No Anesthesia Reactions: No Hx Blood Transfusions: No Blood Transfusion Reaction: No Cardiovascular Assessment Pulse Rhythm: Irregular Peripheral Edema: No Airway Assessment Mallampati Score:: Class II C-Spine Mobility Assessed: Yes (FROM) TMJ Mobility Assessed: Yes Dentition: Edentulous Neurological Assessment Level of Consciousness: Awake, Alert, Appropriate and Follows Commands Hx Seizures: No Numbness or tingling in extremities: Yes (+ CBP w/pain in ASHLEY LE) Anesthesia Plan Anesthesia Risk discussed: Yes Anesthesia Plan: Verified ASA Class: IV (Pt.'s ASA physical status is a IV due to his unruptured thoracic & abdominal aortic aneurysms coupled w/his advanced age & multiple co- morbidities) Anesthesia Type: General
[2024-02-25 11:42] LABS: POC Glucose,Bedside 114 (70-110)
[2024-02-25] MEDS: CEFAZOLIN SODIUM 1 GM in 0.9 % SODIUM CHLORIDE 50 ML IV (12:39)
[2024-02-25] MEDS: LIDOCAINE 1% 20ML MDV 20 ML (13:03)
--- NOTE | 2024-02-25 14:20 | P.OP_ITS ---
Date of procedure: 02/25/24 Pre-op Diagnosis:: Left inguinal hernia Post-op Diagnosis:: Same Procedure performed:: Open left inguinal hernia repair Surgeon:: Parag Sood MD HAT STOCK LAMINATING MACHINE OPERATOR:: Oralia Van Anesthesia: LMA Estimated blood loss (mL): 15 Operative findings:: Profound direct defect with complete failure of canal floor 8 cm Ventralex mesh utilized for repair Operative note:: Open informed consent was obtained the patient was taken to the operating room and placed in the supine position. General anesthesia was induced and his abdomen and groin/scrotum were prepped and draped in a sterile fashion. After infiltration with local anesthetic an oblique left groin incision was made. Electrocautery was utilized to transect through Ilene's fascia to the level of the external aponeurosis. The external aponeurosis was dilated at the level of the external ring. Severe tissue disruption noted. The remaining external aponeurosis was sharply opened to the level of the expanded external ring. The contents of the canal were carefully elevated. A massive direct defect was noted. Complete failure of the canal floor confirmed. Careful dissection was utilized to free the vas deferens and vessels from surrounding tissue. No obvious injury to these structures was noted. Secondary to defect size, the decision was made to forego PerFix repair . An 8 cm Ventralex mesh was placed in position and secured with interrupted Ethibond. The external aponeurosis was reapproximated with running Vicryl suture. Ilene's fascia was closed in the same manner. Skin was then closed with the INSORB stapling device. Dressings were applied and the patient was transferred to recovery in stable condition after removal of his laryngeal mask airway. Condition: stable Disposition: PACU Specimens:: None Complications:: No immediate
[2024-02-25 14:22] LABS: Microscopic,Cath URINE MICROSCOPIC (MICROSCOPIC)
[2024-02-25 14:25] LABS: Appearance,Urine/Cath CLEAR (Clear); Bilirubin,Cath Negative (Negative); Blood, Urine/Cath Negative (Negative); Color,Urine/Cath YELLOW (Yellow); Glucose,Urine/Cath (UA) 1+ (Negative); Ketones,Urine/Cath Negative (Negative); Leukocyte Esterase,Cath 2+ (Negative); Nitrate,Cath Negative (Negative); Protein,Urine/Cath TRACE (Negative); Urobilinogen,Cath 0.2 EU/dl (0.2)
--- NOTE | 2024-02-25 14:26 | P.PNANES_ITS ---
[facility] Anesthesia Record Part I Anesthesia Record I Intake, IV Amount: 1,400 Hydration: Adequate Estimated blood loss (mL): 25 Urine output (mL): 450 Blood Products used (#): none Blood Pressure: 139/86 SaO2: 99 Pulse Rate: 77 Airway Patency: Patent Respiratory Rate: 16 Temperature: 97.9 F Patient is:: Drowsy, Oral/Nasal airway (9.0 oral airway upon arrival to PACU. removed @14:28) and Stable Stable to PACU at:: 14:25
[2024-02-25 15:23] LABS: RBC,Urine/Cath Occasional # /hpf (0-3); WBC,Urine/Cath 20-50 #/hpf (0-3)
[2024-02-25 15:24] LABS: Bacteria,Urine/Cath OCCASSIONAL /lpf
--- NOTE | 2024-02-26 09:08 | EXP.ANES.II ---
[facility] Anesthesia Record Part II Anesthesia Record Part II Discharge Time: 14:50 Destination: Surgical Day Care (OP Surgery) PACU nurse assessment reviewed?: Yes Patient Condition:: Good Anesthesia Complications:: None Swallowing reflex intact?: Yes Airway Patency: Patent Cyanosis?: No Blood Pressure: 141/87 SaO2: 100 Respiratory Rate: 16 Pulse Rate: 84 Temperature: 98 F Mental Status: Alert & Oriented Pain level:: 0 Nausea and/or vomitting:: None Intake, IV Amount: 1,400 Hydration: Adequate
[2024-02-26 09:09] VITALS: BP 141/87; PULSE 84; RESP 16; TEMP 36.6; O2SAT 100
== END 2024-02-25 15:21 | disposition home or self-care (01) ==
PROVIDERS: PCP Family Medicine; Visit Provider Surgery
PROC: (CPT 49505; principal; 2024-02-25 12:30)
DX: K40.90 Unilateral inguinal hernia, without obstruction or gangrene, not specified as recurrent (principal)
CPT/HCPCS: 49505; 81001; 82962; 87086; C1781; J1100; J2405; J3010; J7120

== ENCOUNTER 2024-05-11 13:31 | Outpatient (CLI) | payer MEDICARE, SELFPAY ==
--- NOTE | 2024-05-11 13:50 | CT_ITS ---
PROCEDURE INFORMATION: Exam: CT Abdomen And Pelvis Without Contrast Exam date and time: 05/11/2024 1:57 PM Age: 84 years old Clinical indication: Constipation; Additional info: Abd pain, diarrhea, constipation TECHNIQUE: Imaging protocol: Computed tomography of the abdomen and pelvis without contrast. Radiation optimization: All CT scans at this facility use at least one of these dose optimization techniques: automated exposure control; mA and/or kV adjustment per patient size (includes targeted exams where dose is matched to clinical indication); or iterative reconstruction. COMPARISON: CT ABDOMEN PELVIS W CON 12/27/2023 3:36 PM FINDINGS: Limitations: The absence of intravenous contrast limits the assessment of vascular structures, lesions and lymphadenopathy. Heart: Cardiomegaly attributable to multi cardiac chamber enlargement. Small pericardial effusion. Liver: There are several hepatic granulomas. No focal hepatic lesions within the limits of noncontrast examination. Hepatic steatosis noted. Gallbladder and biliary ducts: Gallbladder is distended without radiopaque cholelithiasis. No biliary ductal dilation. Pancreas: Normal. No ductal dilation. Spleen: Multiple splenic granulomas Adrenal glands: The adrenal glands are normal. Kidneys and ureters: There are variably-sized renal cysts. Some of the cysts are probably proteinaceous/hemorrhagic Stomach and bowel: Large fecal burden throughout the colon noted bowel thickening or distension. No bowel wall thickening or distention. Scattered colonic diverticula without acute inflammatory change. Appendix: No evidence of appendicitis. Intraperitoneal space: Unremarkable. No free air. No significant fluid collection. Vasculature: Infrarenal aortic measures 3.0 x 3.1 cm. The aorta demonstrates severe atherosclerotic calcification and ectasia. Lymph nodes: Unremarkable. No enlarged lymph nodes. Urinary bladder: Urinary bladder is unremarkable. Reproductive: Prostatomegaly measuring 4.0 x 5.5 x 4.6 cm Bones/joints: Multilevel degenerative changes of the included spine. Focal kyphosis centered at L1-L2 which can be either degenerative versus sequela of prior osteomyelitis. Soft tissues: Unremarkable. IMPRESSION: Large fecal burden throughout the colon noted bowel thickening or distension. COMMENTS: Consistent with the [employer]'s Incidental Findings Committee white paper (J Am Kumar Radiol 2018): Any incidental renal lesion less than 1 cm or classified as too small to characterize, or any incidental cystic renal lesion characterized as simple-appearing, is likely benign. No follow-up imaging is recommended for these lesions per consensus recommendations based on imaging criteria.
--- NOTE | 2024-05-11 13:50 | CT_ITS ---
PROCEDURE INFORMATION: Exam: CT Chest Without Contrast; Diagnostic Exam date and time: 05/11/2024 1:57 PM Age: 84 years old Clinical indication: Abnormal findings; Lung mass or nodule; Single or solitary nodule; Additional info: New nodule in left mid lung TECHNIQUE: Imaging protocol: Diagnostic computed tomography of the chest without contrast. Radiation optimization: All CT scans at this facility use at least one of these dose optimization techniques: automated exposure control; mA and/or kV adjustment per patient size (includes targeted exams where dose is matched to clinical indication); or iterative reconstruction. COMPARISON: 1. CT CHEST WO CON 05/11/2024 1:[address] ANGIO CHEST 06/18/2023 2:[address] CHEST WO CON 12/31/2020 12:58 PM FINDINGS: Lungs: COPD with scattered emphysematous changes upper lung zones redemonstrated. This is an irregular shaped peribronchial consolidative density medial aspect right lower lobe again demonstrated measuring approximately 2.0 x 1.3 cm in the coronal plane not significantly changed in size from previous studies dating back to June 2023 but noted to have developed from 2020 and remains indeterminate. There is interval development of small patchy interstitial infiltrate and bronchiectasis posteriorly left lower lobe as well as a small area of similar changes in the right upper lobe likely infectious in nature. There are a few calcified granulomas both lung khan, unchanged, benign. Pleural spaces: Unremarkable. No pneumothorax. No pleural effusion. Heart: Heart is mildly enlarged. Pacemaker wires extending to the right atrium and right ventricle. Moderate calcification of coronary arteries. Small pericardial effusion unchanged. Lymph nodes: Unremarkable. No enlarged lymph nodes. Vasculature: Diffuse atherosclerotic changes and ectasia of the thoracic aorta with smooth dilatation of the ascending aorta measuring 4.8 cm in maximum diameter unchanged. Bones/joints: Unremarkable. No acute fracture. Soft tissues: Unremarkable. IMPRESSION: 1. COPD with 2 cm irregular shaped peribronchial nodular opacity right lower lobe relatively developed from 2020 and relatively stable in size from most recent exams but remains indeterminate. CT-PET study recommended for further evaluation. 2. Interval development of patchy interstitial infiltrate and bronchiectasis posteriorly left lower lobe and less extensive changes within the right lung apex likely infectious in nature.
== END 2024-05-11 23:59 | disposition home or self-care (01) ==
LOC: RAD 13:32
PROVIDERS: PCP Family Medicine; Visit Provider Nurse Practitioner Family
DX: R91.1 Solitary pulmonary nodule (principal); J44.9 Chronic obstructive pulmonary disease, unspecified; R14.0 Abdominal distension (gaseous); R10.33 Periumbilical pain
CPT/HCPCS: 71250; 74176

== ENCOUNTER 2024-06-30 08:39 | Outpatient (CLI) | payer MEDICARE, MEDICAID, SELFPAY ==
--- NOTE | 2024-06-30 08:53 | CT_ITS ---
FINAL REPORT TECHNIQUE: Pre- and postcontrast images of the abdomen were performed by computed tomography. This study was performed with techniques to keep radiation doses as low as reasonably achievable (ALARA). Individualized dose reduction techniques using automated exposure control or adjustment of mA and/or kV according to the patient's size were employed. CLINICAL HISTORY: DISORDERS OF KIDNEY/LIVER COMPARISON: 12/27/2023, and 10/02/2022 FINDINGS: CT ABDOMEN WITH AND WITHOUT CONTRAST: There is a left renal mass in the upper pole measuring 14 mm in size, consistent in appearance with a simple cyst. There is an exophytic mass on the posterior aspect of the left kidney, which measures 26 Hounsfield units precontrast administration and 62 Hounsfield units after intravenous contrast, consistent with enhancement. This mass measures 23 x 16 mm in size and remains stable when compared to the prior CT scans of 2022 and 2023. There is a lower pole left renal lesion without enhancement consistent with a hyperdense cyst. There are 2 right renal lesions, consistent with simple cysts. There is a partially exophytic lesion in the lower pole of the right kidney that has complex features, best seen on images #46 and 47 of series 5. The more anterior component of this lower pole lesion may enhance, the enhancing portion measuring approximately 9 mm in size. The remainder of the solid organs appear unremarkable. There is no evidence of bowel obstruction. There is a tiny left paramedian anterior abdominal wall hernia containing fat. IMPRESSION: No acute intra-abdominal process. The posterior left renal exophytic mass described in the body of the report is worrisome for neoplasm. However, this is not significantly changed when compared to the prior exams of 2022 and 2023, recommend continued 12-month follow-up CT. There is an indeterminate lower pole mass in the right kidney as well, also not significantly changed since the prior CT examinations. Recommend continued 12-month follow-up CT. Reviewed, Interpreted and Dictated by Shannon Sun MD Transcribed by Gladis Bess Authenticated and [facility]
[2024-06-30 09:09] LABS: Blood Urea Nitrogen 26 mg/dl (9-20); Estimated Glomerular Filt Rate 64 ml/min (>60); GFR (African American) 77 ML/MIN (>60)
[2024-06-30] MEDS: IOPAMIDOL-370 (76%);100ML BOTTLE 75 ML IV (09:53)
[2024-06-30] MEDS: SODIUM CHLORIDE 0.9% 10ML SYR (RAD ONLY) 10 ML IV (09:53)
== END 2024-06-30 23:59 | disposition home or self-care (01) ==
LOC: RAD 08:42
PROVIDERS: PCP Family Medicine; Visit Provider Urology
DX: N28.89 Other specified disorders of kidney and ureter (principal)
CPT/HCPCS: 36415; 74170; 82565; 84520; Q9967

== ENCOUNTER 2024-07-29 07:36 | Outpatient (CLI) | payer MEDICARE, MEDICAID, SELFPAY ==
[2024-07-29 07:58] VITALS: BP 133/83; PULSE 81; RESP 18; TEMP 36.2; O2SAT 97
[2024-07-29 08:37] VITALS: BMI 22.9
[2024-07-29 08:49] LABS: INR 1.03 (0.9-1.1); Prothrombin Time 11.5 seconds (10.1-12.5)
--- NOTE | 2024-07-29 09:46 | PC.NURSE ---
Procedure cancelled per Radiology. Pt did not stop Eliquis. Procedure to be rescheduled per Radiology.
== END 2024-07-29 23:59 | disposition home or self-care (01) ==
LOC: RAD 07:38
PROVIDERS: PCP Family Medicine; Visit Provider Internal Medicine Pulmonary Disease
DX: Z01.812 Encounter for preprocedural laboratory examination (principal); D68.9 Coagulation defect, unspecified; I48.92 Unspecified atrial flutter
CPT/HCPCS: 85610

== ENCOUNTER 2024-08-09 07:20 | Outpatient (CLI) | payer MEDICARE, MEDICAID, SELFPAY ==
[2024-08-09 07:44] LABS: Basophils % 0.4 % (0.1-2.0); Eosinophils # 0.1 K/mm3 (0.0-0.4); Eosinophils % 0.9 % (0.1-12.0); Hematocrit 37.4 % (42.0-52.0); Lymphocytes # 2.8 K/mm3 (0.7-4.5); Lymphocytes % 37.9 % (10-50); Mean Corpuscular HGB Conc 32.1 g/dL (31.8-35.4); Mean Corpuscular Hemoglobin 28.8 pg (27.0-31.2); Mean Corpuscular Volume 89.9 fl (80-94); Mean Platelet Volume 9.9 fl (7.4-10.4); Monocytes # 0.7 K/mm3 (0.1-1.0); Monocytes % 9.2 % (1.7-9.3); Neutrophils # 3.8 K/mm3 (1.8-7.8); Neutrophils % 50.9 % (37.0-80.0); Platelet Count 183 K/mm3 (142-424); Red Blood Count 4.16 M/mm3 (4.60-6.20); White Blood Count 7.5 K/mm3 (4.8-10.8)
[2024-08-09 08:00] LABS: Activated Partial Thrombo Time 26.3 seconds (22.5-28.5); INR 1.09 (0.9-1.1); Prothrombin Time 11.9 seconds (9.2-12.1)
[2024-08-09 08:11] LABS: Blood Urea Nitrogen 27 mg/dl (9-20); Estimated Glomerular Filt Rate 80 ml/min (>60); GFR (African American) 97 ML/MIN (>60)
== END 2024-08-09 23:59 | disposition home or self-care (01) ==
PROVIDERS: PCP Family Medicine; Visit Provider Family Medicine
DX: M46.26 Osteomyelitis of vertebra, lumbar region (principal); R10.9 Unspecified abdominal pain; I48.0 Paroxysmal atrial fibrillation; I47.29 Other ventricular tachycardia; I71.21 Aneurysm of the ascending aorta, without rupture; Z95.810 Presence of automatic (implantable) cardiac defibrillator; I10 Essential (primary) hypertension; E78.5 Hyperlipidemia, unspecified; I50.9 Heart failure, unspecified
CPT/HCPCS: 82565; 84520; 85025; 85610; 85730

== ENCOUNTER 2024-08-09 10:21 | Observation (INO) | payer MEDICARE, MEDICAID, SELFPAY ==
[2024-08-09] VITALS (14 sets, daily range): BP systolic 96–125; BP diastolic 59–80; PULSE 64–84; RESP 12–24; TEMP 36.4–36.7; O2SAT 95–98; BMI 23.2; BMI 23.8
--- NOTE | 2024-08-09 08:21 | CT_ITS ---
FINAL REPORT CLINICAL HISTORY: RLL Nodule 4/100 used during bx FINDINGS: CT GUIDE LUNG BIOPSY. HISTORY: Lung nodule ATTENDING PHYSICIAN: Dr. Hannon [employer]YSICIAN [employer]: Bill Reveles PA-C PROCEDURE: After informed consent was obtained and a timeout was performed, the patient was prepped and draped in usual sterile fashion over the right lower posterior chest. Utilizing local anesthesia and sterile technique with a coaxial system, access to lesion was obtained. 4 22-gauge fine needle biopsy passes were made. Diagnostic material was confirmed by the pathologist. Post biopsy films demonstrate a small pneumothorax which on delayed imaging was shown to be slightly increasing. A chest tube will be placed. The patient received mild procedural sedation. The patient tolerated the procedure well and left the department in good condition. IMPRESSION: Status post CT-guided biopsy of a lung nodule. PROCEDURAL SEDATION: 4 mg of IV Versed and 100 mcg of Fentanyl were administered in total for the biopsy and chest tube placement. Continuous vital sign monitoring was used. An RN was present during the sedation process. Overall sedation time was [address] guided chest tube insertion. HISTORY: Pneumothorax. ATTENDING RADIOLOGIST: Dr. Hannon PHYSICIAN [employer]: Bill Reveles PA-C PROCEDURE: After informed consent was obtained and a timeout was performed, the patient was prepped and draped in usual sterile fashion over the posterior chest. Utilizing local anesthesia and sterile technique with a catheter access needle access to the pleural space was obtained. An Amplatz wire was placed. Serial dilatation was performed to 8 [place]. a 10 [place] locking pigtail catheter was placed. Post tube placement films demonstrate no evidence of acute complication. The patient received mild procedural sedation. The patient tolerated the procedure well and left the department in good condition. IMPRESSION: Status post chest tube insertion as above. Films reviewed , interpreted and dictated by Dr. Hannon. Transcribed by Bill Reveles PA-C. Reviewed, Interpreted and Dictated by Marcos Hannon MD Transcribed by LILLI Miller Authenticated and [facility]
[2024-08-09] MEDS: LIDOCAINE 1% W/EPI 1:100,000 20ML VIAL 10 ML SQ (09:49)
--- NOTE | 2024-08-09 10:05 | PC.NURSE ---
Just spoke to MD Weiss to have pt admitted d/t new need for chest tube. MD Weiss will talk to hospitalist.
--- NOTE | 2024-08-09 10:27 | XR_ITS ---
FINAL REPORT CLINICAL HISTORY: CHEST TUBE PLACEMENT COMPARISON: None FINDINGS: The heart size is mildly enlarged. A biventricular pacemaker is present. There is a pigtail right chest tube in the right costophrenic angle. No definite pneumothorax seen. There is no focal infiltrate or edema. There are no pleural effusions. There is no osseous abnormality. IMPRESSION: Pigtail right chest tube in the right costophrenic angle without evidence of pneumothorax. Reviewed, Interpreted and Dictated by Marcos Hannon MD Transcribed by Mariah Sanabria Authenticated and [facility]
--- NOTE | 2024-08-09 10:30 | SW/DCPLANNER ---
This patient currently resides at [facility] level of care. I will continue to follow up w/ Jessica until patient is medically stable for discharge. Discharge date is unknown at this time.
--- NOTE | 2024-08-09 10:39 | PC.NURSE ---
1017- house nurse called with bed assignment
--- NOTE | 2024-08-09 11:21 | PC.NURSE ---
Called Terri to notify of pt's admission. Unable to locate pt's caregiver accompanying him for his procedure. Terri states they and caregiver have been notified.
[2024-08-09 11:56] LABS: Adenovirus,PCR Not Detected (NotDetected); Bordetella Pertussis Not Detected (NotDetected); Chlamydophila Pneumoniae, PCR Not Detected (NotDetected); Coronavirus 19, PCR Not Detected (NotDetected); Coronavirus 229E Not Detected (NotDetected); Coronavirus NL63 Not Detected (NotDetected); Coronavirus OC43 Not Detected (NotDetected); Coronovirus HKU1,PCR Not Detected (NotDetected); Human Metapneumovirus Not Detected (NotDetected); Influenza A, PCR Not Detected (NotDetected); Influenza AH1, 2009 Not Detected (NotDetected); Influenza AH1, PCR Not Detected (NotDetected); Influenza AH3,PCR Not Detected (NotDetected); Influenza B, PCR Not Detected (NotDetected); Mycoplasma Pneumoniae, PCR Not Detected (NotDetected); Parainfluenza 1, PCR Not Detected (NotDetected); Parainfluenza 2, PCR Not Detected (NotDetected); Parainfluenza 3, PCR Not Detected (NotDetected); Parainfluenza 4, PCR Not Detected (NotDetected); Respiratory Syncytial Virus Not Detected (NotDetected); Rhinovirus/Enterovirus Not Detected (NotDetected)
[2024-08-09 12:09] LABS: Basophils % 0.2 % (0.1-2.0); Eosinophils % 0.3 % (0.1-12.0); Hematocrit 36.9 % (42.0-52.0); Hemoglobin 11.9 g/dL (14.1-18.0); Lymphocytes # 2.1 K/mm3 (0.7-4.5); Lymphocytes % 22.8 % (10-50); Mean Corpuscular HGB Conc 32.2 g/dL (31.8-35.4); Mean Platelet Volume 9.5 fl (7.4-10.4); Monocytes # 0.6 K/mm3 (0.1-1.0); Monocytes % 6.9 % (1.7-9.3); Neutrophils # 6.4 K/mm3 (1.8-7.8); Neutrophils % 69.4 % (37.0-80.0); Platelet Count 171 K/mm3 (142-424); White Blood Count 9.2 K/mm3 (4.8-10.8)
[2024-08-09 12:22] LABS: Chloride 103 mmol/L (98-107); Sodium 137 mmol/L (136-145)
[2024-08-09 12:23] LABS: Potassium 4.6 mmoL/L (3.5-5.1)
[2024-08-09 12:25] LABS: Blood Urea Nitrogen 25 mg/dl (9-20); Creatinine Clearance Estimated 58 mL/min (50-200); Estimated Glomerular Filt Rate 71 ml/min (>60); GFR (African American) 86 ML/MIN (>60)
[2024-08-09 12:26] LABS: Anion Gap 10.6 mEq/L (5-15); Calcium 8.7 mg/dl (8.4-10.2); Carbon Dioxide 28 mmol/L (22.0-30.0); Glucose 116 mg/dl (74-100)
[2024-08-09] MEDS: HYDROCODONE/APAP 5/325 MG TABLET 2 TAB PO ×3 (12:32→22:26)
--- NOTE | 2024-08-09 13:29 | HMH.PHAINT1 ---
Pharmacy Intervention Comments: home medication list verified using list from residential
--- NOTE | 2024-08-09 16:46 | P.CONS_ITS ---
History of Present Illness History of present illness: Mr. Hudson is a 84-year-old female greater than [id number] smoking history presented to the hospital for elective CT-guided biopsy of his right lower lobe lung nodule pneumothorax status post chest tube placement by radiology admitted to the hospital for further evaluation and management. [facility] Disclaimer: The information contained in this section may have been updated after the patient was seen, as this information can be updated by other users. Medical History (Updated 08/09/24 @ 16:51 by Domingo Weiss MD) Pneumothorax Lung nodule seen on imaging study Dyspnea on exertion History of smoking 30 or more pack years Pulmonary emphysema Lung nodule Headache Postoperative ileus Acute osteomyelitis of lumbar spine Abdominal distension Diarrhea Constipation Bloating Mass of thoracic vertebra Discitis of lumbar region Hernia, inguinal, left Gastroesophageal reflux Aortic regurgitation Nonsustained ventricular tachycardia Bilateral leg weakness Small bowel obstruction Hypothyroidism Hyperlipidemia COPD (chronic obstructive pulmonary disease) CHF (congestive heart failure) Gout Benign prostatic hyperplasia Renal mass Lung mass Septic shock Pneumonia Acute neck pain Acute exacerbation of chronic low back pain AAA (abdominal aortic aneurysm) Atrial fibrillation with RVR Chest pain 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) Palpitations Thoracic ascending aortic aneurysm Chronic systolic heart failure HLD (hyperlipidemia) HTN (hypertension) Surgical History H/O left inguinal hernia repair Status post laparotomy with lysis of adhesions Hx of atrioventricular node ablation H/O cataract removal with insertion of prosthetic lens History of exploratory laparotomy Biventricular ICD (implantable cardioverter-defibrillator) in place Automatic implantable cardioverter-defibrillator in situ Family History Other Family history of stroke Social History (Updated 08/09/24 @ 11:28 by Graciela Barbosa RN) Smoking Status: Former smoker how long ago did patient quit smokin years ago alcohol intake: never substance use type: denies use current occupational status: retired Travel in the last 8 weeks: None household members: none housing: [facility] caffeine: Yes (coffee) physical activity: walking Have you lived/traveled outside [place] in past 30 days?: No Contact w/someone who lives/traveled outside [place] past 30 days?: No Exposure to someone with infectious disease in past 14 days?: No Do you have a fever (greater than 100.4 F or 38 C)?: No Have you tested positive for COVID-19: No Exposed to someone with COVID-19 in past 14 days?: No Do you have a sore throat?: No Do you have a cough?: No Do you have any weakness?: No Are you experiencing any nausea/vomitting?: No Do you have any diarrhea?: No Are you experiencing any unusual bleeding?: No Do you have any muscle aches/pain?: No Do you have any abdominal pain?: No Are you experiencing loss of taste or smell?: No Review of Systems Constitutional Constitutional: Reports body ache(s) Eyes Eyes: Denies eye discharge, Denies dry eyes, Denies irritation and Denies itchy eyes ENT Ears, Nose, Mouth, and Throat: Denies epistaxis, Denies facial pain, Denies lip swelling and Denies throat swelling *Cardiovascular Cardiovascular: Reports chest pain, Reports dyspnea and Reports dyspnea on exertion *Respiratory Respiratory: Denies change in phlegm color, Denies chest congestion, Reports cough, Reports dyspnea, Reports dyspnea on exertion, Denies excessive phlegm production and Denies wheezing Comments: Chest pain with breathing. Tenderness around the chest tube insertion site. *Gastrointestinal Gastrointestinal: Denies abdominal pain, Denies belching and Denies cramping *Musculoskeletal Musculoskeletal: Reports back pain, Reports myalgias and Reports other (No small joint swelling or Pain) Psychiatric Psychiatric: Denies homicidal ideation and Denies suicidal ideation Endocrine Endocrine: Denies heat intolerance Hematologic/Lymphatic Hematologic/Lymphatic: Denies easy bleeding and Denies lymphadenopathy Allergic/Immunologic Allergic/Immunologic: Denies itchy eyes, Denies lip swelling, Denies throat swelling and Denies wheezing Pulmonology Exam Inpatient Vital signs and Labs for Last 24 Hours: Temp Pulse Resp BP Pulse Ox O2 Del Method O2 Flow Rate 97.5 F L 70 19 107/65 L 97 Nasal Cannula 2 08/09/24 11:00 08/09/24 16:00 08/09/24 16:00 08/09/24 16:00 08/09/24 16:00 08/09/24 16:00 08/09/24 16:00 Laboratory Results - last 24 hr 08/09/24 11:45: Chlamy pneumoniae PCR Not detected, Adenovirus (PCR) Not detected, B. pertussis DNA (PCR) Not detected, Coronavirus OC43 (PCR) Not detected, Coronavirus HKU1 (PCR) Not detected, Coronavirus 229E (PCR) Not detected, SARS-CoV-2 (PCR) Not detected, Coronavirus NL63 (PCR) Not detected, Human Metapneumovir PCR Not detected, Influenza A (H1) PCR Not detected, Influ A (H1N1/09) PCR Not detected, Influenza A (H3) PCR Not detected, Influenza Type A (PCR) Not detected, Influenza Type B (PCR) Not detected, M. pneumoniae (PCR) Not detected, Parainfluenza 1 (PCR) Not detected, Parainfluenza 2 (PCR) Not detected, Parainfluenza 3 (PCR) Not detected, Parainfluenza 4 (PCR) Not detected, RSV (PCR) Not detected, Entero/Rhino (PCR) Not detected 08/09/24 12:00: WBC 9.2, RBC 4.10 L, Hgb 11.9 L, Hct 36.9 L, MCV 90.0, MCH 29.0, MCHC 32.2, RDW 14.0, Plt Count 171, MPV 9.5, Neut % (Auto) 69.4, Lymph % (Auto) 22.8, [place] % (Auto) 6.9, Eos % (Auto) 0.3, Baso % (Auto) 0.2, Neut # (Auto) 6.4, Lymph # (Auto) 2.1, [place] # (Auto) 0.6, Eos # (Auto) 0.0, Baso # (Auto) 0.0, Sodium 137, Potassium 4.6, Chloride 103, Carbon Dioxide 28, Anion Gap 10.6, BUN 25 H, Creatinine 1.00, Estimated Creat Clear 58, Estimated GFR 71, Est GFR ( Amer) 86, Glucose 116 H, Calcium 8.7 I & O for Labs for Last 24 Hours: Intake & Output 08/06/24 08/07/24 08/08/24 08/09/24 23:59 23:59 23:59 23:59 Output Total 450 / 450 Balance -450 / -450 Weight 166 lb 3 oz Microbiology Reports for the Last 24 Hours: Microbiology 08/09/24 11:09 Sputum - Expectorated Sputum Gram Stain - Final Constitutional: Present moderate distress Head: Present normocephalic and atraumatic ENT: Present normal exam, normal oropharynx and mucous membranes moist Neck: Present normal inspection and full ROM Respiratory: Present able to speak in complete sentences; Absent respiratory distress, rhonchi, wheezes or crackles Comment:: Chest tube insertion site appears clear with no evidence of hematoma. Tenderness noted. Cardiac: Present S1/S2, Tachycardia and radial pulses present GI: Present soft and distention; Absent tenderness or guarding Skin: Present intact; Absent cyanosis or jaundice Neuro: Present alert, awake and oriented x 3 Extremities: Present normal inspection; Absent clubbing or cyanosis Psychiatric: Present normal affect and cooperative Meds Home Medications and Allergies Home Medications ?Medication ?Instructions ?Recorded ?Confirmed ?Type tamsulosin 0.4 mg capsule 0.4 mg PO HS 01/15/23 08/09/24 History apixaban 5 mg tablet (Eliquis) 5 mg PO BID 01/20/23 08/09/24 History fluticasone fur. 100 mcg-umeclid 1 inh inhalation DAILY 11/02/23 08/09/24 History 62.5 mcg-vilant 25 mcg inhalat.powder (Trelegy Ellipta) pravastatin 40 mg tablet 40 mg PO HS 11/02/23 08/09/24 History empagliflozin 10 mg tablet 10 mg PO DAILY 12/28/23 08/09/24 History pantoprazole 40 mg tablet,delayed 40 mg PO DAILY 12/28/23 08/09/24 History release spironolactone 25 mg tablet 12.5 mg PO DAILY 12/28/23 08/09/24 History allopurinol 300 mg tablet 300 mg PO DAILY #90 tabs 01/07/24 08/09/24 Rx carvedilol 3.125 mg tablet 3.125 mg PO BID #30 tabs 01/18/24 08/09/24 Rx sacubitril 24 mg-valsartan 26 mg 0.5 tab PO BID #15 tabs 01/18/24 08/09/24 Rx tablet (Entresto) lactulose 20 gram/30 mL oral 20 g PO DAILYP PRN Constipation 02/10/24 08/09/24 History solution vit C 250 mg-vit E 90 mg-zinc 40 1 tab PO BID 02/10/24 07/29/24 History mg-copper 1 gl-jgvdsa-eysvzn capsule (PreserVision AREDS-2) levothyroxine 150 mcg tablet 150 mcg PO DAILY #90 tabs 06/28/24 08/09/24 Rx gabapentin 100 mg capsule 100 mg PO BID #60 caps 07/12/24 08/09/24 Rx acetaminophen 500 mg tablet 500 mg PO Q6H PRN Fever Or Pain 08/09/24 08/09/24 History docusate sodium 100 mg tablet (DOK) 100 mg PO DAILY 08/09/24 08/09/24 History hydrocodone 5 mg-acetaminophen 325 1 tab PO Q6HP PRN pain 08/09/24 08/09/24 History mg tablet polyethylene glycol 3350 17 17 g PO DAILY 08/09/24 08/09/24 History gram/dose oral powder (Miralax) New Prescriptions to Start Prescriptions: Allergies Allergy/AdvReac Type Severity Reaction Status Date / Time No Known Allergies Allergy Verified 07/29/24 07:55 Results Laboratory Findings 08/09/24 12:00 08/09/24 12:00 Abnormal lab findings: Abnormal Labs 08/09/24 12:00 RBC 4.10 L Hgb 11.9 L Hct 36.9 L BUN 25 H Glucose 116 H Assessment and Plan *Assessment and plan (1) Lung nodule seen on imaging study: Status: Acute Category: Medical Code(s): R91.1 - Solitary pulmonary nodule (2) Pneumothorax: Status: Acute Category: Medical Code(s): J93.9 - Pneumothorax, unspecified Plan Mr. Hudson is a 84-year-old female greater than 89-[id number] smoking history presented to the hospital for elective CT-guided biopsy of his right lower lobe lung nodule pneumothorax status post chest tube placement by radiology admitted to the hospital for further evaluation and management. CT imaging 9:33 and this morning reviewed, small pneumothorax in the posterior aspect of right lung. Subsequent chest x-ray after chest tube placement at 10:27 not show any significant pneumothorax. Patient on examination complaining of severe right-sided pleuritic chest pain and significant tenderness around the chest tube site. Receiving Percocet with partial improvement in his pain. No significant wheezing noted on auscultation. On 3 L nasal cannula saturating 98%. Plan: Follow-up with CT chest without contrast Continue to chest tube to -20 cm water suction Continue oxygen supplementation as needed to maintain O2 saturation goal of 90% and above, wean as tolerated.
--- NOTE | 2024-08-09 16:53 | CT_ITS ---
PROCEDURE INFORMATION: Exam: CT Chest Without Contrast; Diagnostic Exam date and time: 08/09/2024 5:15 PM Age: 84 years old Clinical indication: Condition or disease; Lung condition and disease; Pneumothorax; Additional info: Chest pain / pneumothorax TECHNIQUE: Imaging protocol: Diagnostic computed tomography of the chest without contrast. Radiation optimization: All CT scans at this facility use at least one of these dose optimization techniques: automated exposure control; mA and/or kV adjustment per patient size (includes targeted exams where dose is matched to clinical indication); or iterative reconstruction. COMPARISON: CT CHEST WO CON 05/11/2024 1:57 PM FINDINGS: Tubes, catheters and devices: Cardiac pacemaker on the left chest. Lungs: No focal consolidation. Scattered parenchymal scarring. Small calcified granulomata. Pleural spaces: Severe emphysema. Small right apical and anterior pneumothorax. Pigtail type catheter in the lateral right pleural space. Heart: Unremarkable. No cardiomegaly. No pericardial effusion. Coronary arteries: Extensive calcification of the coronary arteries. Lymph nodes: Unremarkable. No enlarged lymph nodes. Vasculature: Extensive calcification of the aorta. Fusiform aneurysm of the ascending aorta with maximum diameter 4.9 cm. Bones/joints: Unremarkable. No acute fracture. Soft tissues: Unremarkable. IMPRESSION: 1. Small right apical and anterior pneumothorax. Pigtail catheter is in satisfactory position. 2. Fusiform aneurysm of the ascending aorta with maximum diameter 4.9 cm. Bridging osteophytes throughout the thoracic spine. 3. Severe emphysema. 4. Evidence of prior granulomatous exposure.
--- NOTE | 2024-08-09 18:39 | PC.NURSE ---
dr Ramsey at bedside 1819. [facility] on the phone at this time to speak with provider about ct scan results. Dr Ramsey on phone with Dr moctezuma [id number] per v/o from Dr Ramsey, pt chest tube to be placed to water seal. pt also to be placed back on supplemental o2 and for sats to be 100%
--- NOTE | 2024-08-09 21:12 | EXP.HP ---
History of Present Illness *Admission Date: 08/09/24 *Reason for visit:: Pneumothorax *History of present illness: Isac Hudson is a 84-year-old male with a medical history significant for A-fib on Eliquis, type 2 diabetes, hypothyroidism, GERD, former smoker, hypertension who presented for an outpatient CT-guided biopsy of lung mass. Unfortunately the procedure led to a small pneumothorax s/p chest tube placement. Patient states he feels better since the chest tube has been placed, but continues to have significant right-sided chest/flank pain where chest tube was inserted. Denies mid chest pain, shortness of breath, abdominal pain. Chest tube suction is set to 30 at the time of interview with repeat CT chest revealing small right apical and anterior pneumothorax. I discussed findings with pulmonology who agreed these findings are small in nature that will self absorb over time. Patient was admitted for monitoring of pneumothorax s/p pigtail chest tube placement. [facility] Disclaimer: The information contained in this section may have been updated after the patient was seen, as this information can be updated by other users. Medical History (Updated 08/09/24 @ 16:51 by Domingo Weiss MD) Pneumothorax Lung nodule seen on imaging study Dyspnea on exertion History of smoking 30 or more pack years Pulmonary emphysema Lung nodule Headache Postoperative ileus Acute osteomyelitis of lumbar spine Abdominal distension Diarrhea Constipation Bloating Mass of thoracic vertebra Discitis of lumbar region Hernia, inguinal, left Gastroesophageal reflux Aortic regurgitation Nonsustained ventricular tachycardia Bilateral leg weakness Small bowel obstruction Hypothyroidism Hyperlipidemia COPD (chronic obstructive pulmonary disease) CHF (congestive heart failure) Gout Benign prostatic hyperplasia Renal mass Lung mass Septic shock Pneumonia Acute neck pain Acute exacerbation of chronic low back pain AAA (abdominal aortic aneurysm) Atrial fibrillation with RVR Chest pain 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) Palpitations Thoracic ascending aortic aneurysm Chronic systolic heart failure HLD (hyperlipidemia) HTN (hypertension) Surgical History H/O left inguinal hernia repair Status post laparotomy with lysis of adhesions Hx of atrioventricular node ablation H/O cataract removal with insertion of prosthetic lens History of exploratory laparotomy Biventricular ICD (implantable cardioverter-defibrillator) in place Automatic implantable cardioverter-defibrillator in situ Family History Other Family history of stroke Social History (Updated 08/09/24 @ 11:28 by Graciela Barbosa RN) Smoking Status: Former smoker how long ago did patient quit smokin years ago alcohol intake: never substance use type: denies use current occupational status: retired Travel in the last 8 weeks: None household members: none housing: skilled nursing caffeine: Yes (coffee) physical activity: walking Have you lived/traveled outside [place] in past 30 days?: No Contact w/someone who lives/traveled outside US past 30 days?: No Exposure to someone with infectious disease in past 14 days?: No Do you have a fever (greater than 100.4 F or 38 C)?: No Have you tested positive for COVID-19: No Exposed to someone with COVID-19 in past 14 days?: No Do you have a sore throat?: No Do you have a cough?: No Do you have any weakness?: No Are you experiencing any nausea/vomitting?: No Do you have any diarrhea?: No Are you experiencing any unusual bleeding?: No Do you have any muscle aches/pain?: No Do you have any abdominal pain?: No Are you experiencing loss of taste or smell?: No Other Medical History Have you received the Flu Vaccine for this season: Yes Have you received the Pneumonia Vaccine: No Meds Home Medications and Allergies Home Medications ?Medication ?Instructions ?Recorded ?Confirmed ?Type tamsulosin 0.4 mg capsule 0.4 mg PO HS 01/15/23 08/09/24 History apixaban 5 mg tablet (Eliquis) 5 mg PO BID 01/20/23 08/09/24 History fluticasone fur. 100 mcg-umeclid 1 inh inhalation DAILY 11/02/23 08/09/24 History 62.5 mcg-vilant 25 mcg inhalat.powder (Trelegy Ellipta) pravastatin 40 mg tablet 40 mg PO HS 11/02/23 08/09/24 History empagliflozin 10 mg tablet 10 mg PO DAILY 12/28/23 08/09/24 History pantoprazole 40 mg tablet,delayed 40 mg PO DAILY 12/28/23 08/09/24 History release spironolactone 25 mg tablet 12.5 mg PO DAILY 12/28/23 08/09/24 History allopurinol 300 mg tablet 300 mg PO DAILY #90 tabs 01/07/24 08/09/24 Rx carvedilol 3.125 mg tablet 3.125 mg PO BID #30 tabs 01/18/24 08/09/24 Rx sacubitril 24 mg-valsartan 26 mg 0.5 tab PO BID #15 tabs 01/18/24 08/09/24 Rx tablet (Entresto) lactulose 20 gram/30 mL oral 20 g PO DAILYP PRN Constipation 02/10/24 08/09/24 History solution vit C 250 mg-vit E 90 mg-zinc 40 1 tab PO BID 02/10/24 07/29/24 History mg-copper 1 [id number] capsule (PreserVision AREDS-2) levothyroxine 150 mcg tablet 150 mcg PO DAILY #90 tabs 06/28/24 08/09/24 Rx gabapentin 100 mg capsule 100 mg PO BID #60 caps 07/12/24 08/09/24 Rx acetaminophen 500 mg tablet 500 mg PO Q6H PRN Fever Or Pain 08/09/24 08/09/24 History docusate sodium 100 mg tablet (DOK) 100 mg PO DAILY 08/09/24 08/09/24 History hydrocodone 5 mg-acetaminophen 325 1 tab PO Q6HP PRN pain 08/09/24 08/09/24 History mg tablet polyethylene glycol 3350 17 17 g PO DAILY 08/09/24 08/09/24 History gram/dose oral powder (Miralax) New Prescriptions to Start Prescriptions: Allergies Allergy/AdvReac Type Severity Reaction Status Date / Time No Known Allergies Allergy Verified 07/29/24 07:55 Exam Data for Last 24 hours Vital signs and Labs for Last 24 Hours: Temp Pulse Resp BP Pulse Ox O2 Del Method O2 Flow Rate 97.5 F L 72 24 125/80 95 Nasal Cannula 2.5 08/09/24 11:00 08/09/24 20:00 08/09/24 18:00 08/09/24 18:00 08/09/24 18:00 08/09/24 18:43 08/09/24 18:43 Laboratory Results - last 24 hr 08/09/24 11:45: Chlamy pneumoniae PCR Not detected, Adenovirus (PCR) Not detected, B. pertussis DNA (PCR) Not detected, Coronavirus OC43 (PCR) Not detected, Coronavirus HKU1 (PCR) Not detected, Coronavirus 229E (PCR) Not detected, SARS-CoV-2 (PCR) Not detected, Coronavirus NL63 (PCR) Not detected, Human Metapneumovir PCR Not detected, Influenza A (H1) PCR Not detected, Influ A (H1N1/09) PCR Not detected, Influenza A (H3) PCR Not detected, Influenza Type A (PCR) Not detected, Influenza Type B (PCR) Not detected, M. pneumoniae (PCR) Not detected, Parainfluenza 1 (PCR) Not detected, Parainfluenza 2 (PCR) Not detected, Parainfluenza 3 (PCR) Not detected, Parainfluenza 4 (PCR) Not detected, RSV (PCR) Not detected, Entero/Rhino (PCR) Not detected 08/09/24 12:00: WBC 9.2, RBC 4.10 L, Hgb 11.9 L, Hct 36.9 L, MCV 90.0, MCH 29.0, MCHC 32.2, RDW 14.0, Plt Count 171, MPV 9.5, Neut % (Auto) 69.4, Lymph % (Auto) 22.8, Rowan % (Auto) 6.9, Eos % (Auto) 0.3, Baso % (Auto) 0.2, Neut # (Auto) 6.4, Lymph # (Auto) 2.1, Rowan # (Auto) 0.6, Eos # (Auto) 0.0, Baso # (Auto) 0.0, Sodium 137, Potassium 4.6, Chloride 103, Carbon Dioxide 28, Anion Gap 10.6, BUN 25 H, Creatinine 1.00, Estimated Creat Clear 58, Estimated GFR 71, Est GFR ( Amer) 86, Glucose 116 H, Calcium 8.7 I & O for Last 24 hours: Intake & Output 08/06/24 08/07/24 08/08/24 08/09/24 23:59 23:59 23:59 23:59 Intake Total 180 / 180 Output Total 450 / 450 Balance -270 / -270 Weight 75.381 kg Microbiology Reports for the Last 24 Hours: Microbiology 08/09/24 11:09 Sputum - Expectorated Sputum Gram Stain - Final Constitutional Constitutional: no acute distress *Routine HEENT Exam Head: Present normocephalic Eye: Present EOMI and PERRL ENT: Present mucous membranes moist *Routine Neck Exam Neck: Present supple; Absent lymphadenopathy Routine Chest/Breast/Axilla Exam Comments: Right chest tube placement site dressed without overt signs of hemorrhage. *Routine Respiratory Exam Respiratory: Present CTA bilaterally *Routine Cardiovascular Exam Cardiovascular: Present RRR *Routine Abdominal Exam Abdominal: Present soft and normoactive bowel sounds; Absent tenderness *Routine Rectal Exam Rectal:: deferred *Routine Genitalia Exam Genitalia:: deferred *Routine Extremities Exam Extremities: Absent cyanosis, clubbing or edema *Routine Skin Exam Skin: Present warm; Absent rash *Routine Neurological Exam Neurological: Present alert and oriented X3 Assessment and Plan *Assessment and plan (1) Pneumothorax: Status: Acute Category: Medical Code(s): J93.9 - Pneumothorax, unspecified Plan Isac Hudson is a 84-year-old male with a medical history significant for A-fib on Eliquis, type 2 diabetes, hypothyroidism, GERD, former smoker, hypertension who presented for an outpatient CT-guided biopsy of lung mass. Unfortunately the procedure led to a small pneumothorax s/p chest tube placement. Patient states he feels better since the chest tube has been placed, but continues to have significant right-sided chest/flank pain where chest tube was inserted. Denies mid chest pain, shortness of breath, abdominal pain. Chest tube suction is set to 30 at the time of interview with repeat CT chest revealing small right apical and anterior pneumothorax. I discussed findings with pulmonology who agreed these findings are small in nature that will self absorb over time. Patient was admitted for monitoring of pneumothorax s/p pigtail chest tube placement. #Postprocedural small pneumothorax #Small apical, anterior pneumothoraces. ? Small pneumothorax after routine CT-guided biopsy of lung mass. ? S/p pigtail chest tube placement, however repeat CT chest reveals small apical and anterior pneumothoraces. ? Discussed case with pulmonology, who agreed these pneumothoraces are quite small in nature and will self absorb. Advised to waterseal chest tube overnight and follow-up repeat CXR in the morning. ? There is possibly a small subcutaneous hematoma that has formed since pigtail catheter which may be contributing to patient's chest pain at the insertion site. Will hold anticoagulation for now. ? Vital signs stable. Saturating 95% on room air. Will place on nasal cannula for the goal of 100% for now. ? Follow-up morning CXR. ? [place], Dilaudid for pain control. ? Obtain stat CXR if reasonably able to prior to starting suctioning if patient develops respiratory distress, increased pain. Chronic medical problems: #A-fib #Hypertension ? Rate controlled. ? Resume home Coreg. Hold home Eliquis given possible hematoma as above. #Ascending aortic aneurysm ? CT chest reveals fusiform ascending aortic aneurysm with a maximal diameter of 4.9 cm. Stable, 4.8 cm last year. Follows with cardiology. #Hypothyroidism ? Resume home levothyroxine 150 mcg. ? Follow-up morning TFTs. #Type 2 diabetes ? LDSSI, ACHS glucose checks. #GERD ? Resume home PPI. Full code DVT prophylaxis: SCDs
[2024-08-09] MEDS: GABAPENTIN 100MG CAPSULE 100 MG PO (21:33)
[2024-08-09] MEDS: CARVEDILOL 3.125MG TABLET 3.125 MG PO (21:33)
[2024-08-09] MEDS: PRAVASTATIN 40MG TAB 40 MG PO (21:33)
[2024-08-09] MEDS: TAMSULOSIN 0.4MG CAPSULE 0.4 MG PO (23:27)
[2024-08-10] VITALS (14 sets, daily range): BP systolic 93–117; BP diastolic 62–73; PULSE 61–92; RESP 15–27; TEMP 36.5–36.7; O2SAT 88–100; BMI 23.7
[2024-08-10] MEDS: HYDROMORPHONE 2MG/ML SYRINGE 0.5 MG IV (03:52)
--- NOTE | 2024-08-10 06:00 | XR_ITS ---
PROCEDURE INFORMATION: Exam: XR Chest Exam date and time: 08/10/2024 5:43 AM Age: 84 years old Clinical indication: Other: Follow-up pneumothorax TECHNIQUE: Imaging protocol: Radiologic exam of the chest. Views: 1 view. COMPARISON: CT CHEST WO CON 08/09/2024 5:15 PM FINDINGS: Tubes, catheters and devices: A pacemaker is present. Lungs: Nonspecific left lung base opacity favors atelectasis over pneumonia. Pleural spaces: Right pleural drain without convincing pneumothorax. Heart/Mediastinum: Unremarkable. No cardiomegaly. Bones/joints: Unremarkable. IMPRESSION: 1. Nonspecific left lung base opacity favors atelectasis over pneumonia. 2. Right pleural drain without convincing pneumothorax.
[2024-08-10 06:26] LABS: Alanine Aminotransferase 24 U/L (12-78); Albumin Level 3.4 g/dl (3.5-5.0); Albumin/Globulin Ratio 1.3 (1.1-1.8); Alkaline Phosphatase 187 U/L (38-126); Anion Gap 10.3 mEq/L (5-15); Aspartate Amino Transferase 33 U/L (17-59); Bilirubin,Total 0.5 mg/dl (0.2-1.3); Blood Urea Nitrogen 21 mg/dl (9-20); Calcium 8.8 mg/dl (8.4-10.2); Carbon Dioxide 29 mmol/L (22.0-30.0); Chloride 103 mmol/L (98-107); Creatinine Clearance Estimated 58 mL/min (50-200); Estimated Glomerular Filt Rate 71 ml/min (>60); GFR (African American) 86 ML/MIN (>60); Globulin 2.6 g/dL (1.3-3.2); Glucose 92 mg/dl (74-100); Magnesium 1.9 mg/dl (1.6-2.3); Potassium 4.3 mmoL/L (3.5-5.1); Sodium 138 mmol/L (136-145)
[2024-08-10 06:30] LABS: Basophils % 0.4 % (0.1-2.0); Eosinophils # 0.1 K/mm3 (0.0-0.4); Eosinophils % 0.7 % (0.1-12.0); Hematocrit 40.1 % (42.0-52.0); Hemoglobin 12.8 g/dL (14.1-18.0); Lymphocytes # 2.1 K/mm3 (0.7-4.5); Lymphocytes % 24.9 % (10-50); Mean Corpuscular HGB Conc 31.9 g/dL (31.8-35.4); Mean Corpuscular Hemoglobin 29.3 pg (27.0-31.2); Mean Corpuscular Volume 91.8 fl (80-94); Mean Platelet Volume 9.9 fl (7.4-10.4); Monocytes # 0.6 K/mm3 (0.1-1.0); Monocytes % 7.2 % (1.7-9.3); Neutrophils # 5.6 K/mm3 (1.8-7.8); Neutrophils % 66.4 % (37.0-80.0); Platelet Count 189 K/mm3 (142-424); Red Blood Count 4.37 M/mm3 (4.60-6.20); Red Cell Distribution Width 13.9 % (11.5-17.5); White Blood Count 8.4 K/mm3 (4.8-10.8)
[2024-08-10 06:55] LABS: Thyroid Stimulating Hormone 0.02 uIU/mL (0.465-4.68)
[2024-08-10] MEDS: LEVOTHYROXINE 150MCG (0.15MG)TAB 150 MCG PO (09:28)
[2024-08-10] MEDS: SPIRONOLACTONE 25MG TABLET 12.5 MG PO (09:28)
[2024-08-10] MEDS: GABAPENTIN 100MG CAPSULE 100 MG PO (09:28)
[2024-08-10] MEDS: EMPAGLIFLOZIN 10MG TABLET 10 MG PO (09:28)
[2024-08-10] MEDS: ALLOPURINOL 300MG TABLET 300 MG PO (09:28)
[2024-08-10] MEDS: HYDROCODONE/APAP 5/325 MG TABLET 2 TAB PO ×2 (09:29→16:51)
[2024-08-10] MEDS: MAGNESIUM SULFATE IN WATER 2 GM/50 ML PIGGYBACK IV (09:30)
[2024-08-10] MEDS: LIDOCAINE 5% TRANSDERMAL PATCH 1 EACH TP (09:30)
--- NOTE | 2024-08-10 09:36 | P.PN_ITS ---
Subjective *Date: 08/10/24 *Time: 13:09 Interval history: No acute respiratory vents overnight. Patient admits better pain control from yesterday Pulmonology Exam Inpatient Vital signs and Labs for Last 24 Hours: Temp Pulse Resp BP Pulse Ox O2 Del Method O2 Flow Rate 97.8 F 79 21 113/73 98 Nasal Cannula 4.5 08/10/24 07:56 08/10/24 08:01 08/10/24 08:01 08/10/24 08:01 08/10/24 08:01 08/10/24 08:15 08/10/24 08:15 Laboratory Results - last 24 hr 08/09/24 11:45: Chlamy pneumoniae PCR Not detected, Adenovirus (PCR) Not detected, B. pertussis DNA (PCR) Not detected, Coronavirus OC43 (PCR) Not detected, Coronavirus HKU1 (PCR) Not detected, Coronavirus 229E (PCR) Not detected, SARS-CoV-2 (PCR) Not detected, Coronavirus NL63 (PCR) Not detected, Human Metapneumovir PCR Not detected, Influenza A (H1) PCR Not detected, Influ A (H1N1/09) PCR Not detected, Influenza A (H3) PCR Not detected, Influenza Type A (PCR) Not detected, Influenza Type B (PCR) Not detected, M. pneumoniae (PCR) Not detected, Parainfluenza 1 (PCR) Not detected, Parainfluenza 2 (PCR) Not detected, Parainfluenza 3 (PCR) Not detected, Parainfluenza 4 (PCR) Not d etected, RSV (PCR) Not detected, Entero/Rhino (PCR) Not detected 08/09/24 12:00: WBC 9.2, RBC 4.10 L, Hgb 11.9 L, Hct 36.9 L, MCV 90.0, MCH 29.0, MCHC 32.2, RDW 14.0, Plt Count 171, MPV 9.5, Neut % (Auto) 69.4, Lymph % (Auto) 22.8, Wilkinson % (Auto) 6.9, Eos % (Auto) 0.3, Baso % (Auto) 0.2, Neut # (Auto) 6.4, Lymph # (Auto) 2.1, Wilkinson # (Auto) 0.6, Eos # (Auto) 0.0, Baso # (Auto) 0.0, Sodium 137, Potassium 4.6, Chloride 103, Carbon Dioxide 28, Anion Gap 10.6, BUN 25 H, Creatinine 1.00, Estimated Creat Clear 58, Estimated GFR 71, Est GFR (Merged With [facility] Amer) 86, Glucose 116 H, Calcium 8.7 08/10/24 05:33: WBC 8.4, RBC 4.37 L, Hgb 12.8 L, Hct 40.1 L, MCV 91.8, MCH 29.3, MCHC 31.9, RDW 13.9, Plt Count 189, MPV 9.9, Neut % (Auto) 66.4, Lymph % (Auto) 24.9, Wilkinson % (Auto) 7.2, Eos % (Auto) 0.7, Baso % (Auto) 0.4, Neut # (Auto) 5.6, Lymph # (Auto) 2.1, Wilkinson # (Auto) 0.6, Eos # (Auto) 0.1, Baso # (Auto) 0.0, Sodium 138, Potassium 4.3, Chloride 103, Carbon Dioxide 29, Anion Gap 10.3, BUN 21 H, Creatinine 1.00, Estimated Creat Clear 58, Estimated GFR 71, Est GFR (Merged With [facility] Am) 86, Glucose 92 D, Calcium 8.8, Magnesium 1.9, Total Bilirubin 0.5, AST 33, ALT 24, Alkaline Phosphatase 187 H, Total Protein 6.0 L, Albumin 3.4 L, Globulin 2.6, Albumin/Globulin Ratio 1.3, TSH 0.02 L Temp Pulse Resp BP Pulse Ox O2 Del Method O2 Flow Rate 97.5 F L 70 19 107/65 L 97 Nasal Cannula 2 08/09/24 11:00 08/09/24 16:00 08/09/24 16:00 08/09/24 16:00 08/09/24 16:00 08/09/24 16:00 08/09/24 16:00 Laboratory Results - last 24 hr 08/09/24 11:45: Chlamy pneumoniae PCR Not detected, Adenovirus (PCR) Not detected, B. pertussis DNA (PCR) Not detected, Coronavirus OC43 (PCR) Not detected, Coronavirus HKU1 (PCR) Not detected, Coronavirus 229E (PCR) Not detected, SARS-CoV-2 (PCR) Not detected, Coronavirus NL63 (PCR) Not detected, Human Metapneumovir PCR Not detected, Influenza A (H1) PCR Not detected, Influ A (H1N1/09) PCR Not detected, Influenza A (H3) PCR Not detected, Influenza Type A (PCR) Not detected, Influenza Type B (PCR) Not detected, M. pneumoniae (PCR) Not detected, Parainfluenza 1 (PCR) Not detected, Parainfluenza 2 (PCR) Not detected, Parainfluenza 3 (PCR) Not detected, Parainfluenza 4 (PCR) Not detected, RSV (PCR) Not detected, Entero/Rhino (PCR) Not detected 08/09/24 12:00: WBC 9.2, RBC 4.10 L, Hgb 11.9 L, Hct 36.9 L, MCV 90.0, MCH 29.0, MCHC 32.2, RDW 14.0, Plt Count 171, MPV 9.5, Neut % (Auto) 69.4, Lymph % (Auto) 22.8, Wilkinson % (Auto) 6.9, Eos % (Auto) 0.3, Baso % (Auto) 0.2, Neut # (Auto) 6.4, Lymph # (Auto) 2.1, Wilkinson # (Auto) 0.6, Eos # (Auto) 0.0, Baso # (Auto) 0.0, Sodium 137, Potassium 4.6, Chloride 103, Carbon Dioxide 28, Anion Gap 10.6, BUN 25 H, Creatinine 1.00, Estimated Creat Clear 58, Estimated GFR 71, Est GFR ( Amer) 86, Glucose 116 H, Calcium 8.7 I & O for Labs for Last 24 Hours: Intake & Output 08/07/24 08/08/24 08/09/24 08/10/24 23:59 23:59 23:59 23:59 Intake Total 180 / 420 840 / 840 Output Total 1150 / 1160 320 / 320 Balance -970 / -740 520 / 520 Weight 166 lb 3 oz Intake & Output 08/06/24 08/07/24 08/08/24 08/09/24 23:59 23:59 23:59 23:59 Output Total 450 / 450 Balance -450 / -450 Weight 166 lb 3 oz Microbiology Reports for the Last 24 Hours: Microbiology 08/09/24 11:09 Sputum - Expectorated Sputum Gram Stain - Final Microbiology 08/09/24 11:09 Sputum - Expectorated Sputum Gram Stain - Final Constitutional: Present moderate distress Head: Present normocephalic and atraumatic ENT: Present normal exam, normal oropharynx and mucous membranes moist Neck: Present normal inspection and full ROM Respiratory: Present able to speak in complete sentences; Absent respiratory distress, rhonchi, wheezes or crackles Comment:: Chest tube insertion site appears clear with no evidence of hematoma. Tenderness noted. Cardiac: Present S1/S2, Tachycardia and radial pulses present GI: Present soft and distention; Absent tenderness or guarding Skin: Present intact; Absent cyanosis or jaundice Neuro: Present alert, awake and oriented x 3 Extremities: Present normal inspection; Absent clubbing or cyanosis Psychiatric: Present normal affect and cooperative Assessment and Plan *Assessment and plan (1) Lung nodule seen on imaging study: Status: Acute Category: Medical Code(s): R91.1 - Solitary pulmonary nodule (2) Pneumothorax: Status: Acute Category: Medical Code(s): J93.9 - Pneumothorax, unspecified Plan Mr. Hudson is a 84-year-old female greater than [id number] smoking history presented to the hospital for elective CT-guided biopsy of his right lower lobe lung nodule pneumothorax status post chest tube placement by radiology admitted to the hospital for further evaluation and management. CT imaging 9:33 and this morning reviewed, small pneumothorax in the posterior aspect of right lung. Subsequent chest x-ray after chest tube placement at 10:27 not show any significant pneumothorax. Patient on examination complaining of severe right-sided pleuritic chest pain and significant tenderness around the chest tube site. Receiving Percocet with partial improvement in his pain. No significant wheezing noted on auscultation. On 3 L nasal cannula saturating 98%. Interval update: CT chest from yesterday small apical pneumothorax. Chest tube placed back to suction overnight. Chest x-ray from this morning stable with no convincing willam dence of worsening pneumothorax. Comprehensive respiratory viral PCR panel negative Plan: Clamp the chest tube and follow with repeat chest x-ray Continue oxygen supplementation to maintain O2 saturation goal of 100%
[2024-08-10] MEDS: POLYETHYLENE GLYCOL 3350 238GM POWDER 17 GM PO (09:37)
[2024-08-10 10:41] LABS: Hemoglobin A1C 5.8 % (4.0-6.0)
[2024-08-10 11:31] LABS: POC Glucose,Bedside 98 (70-110)
[2024-08-10] MEDS: levoFLOXacin 750 MG TABLET PO (11:52)
--- NOTE | 2024-08-10 13:00 | XR_ITS ---
FINAL REPORT CLINICAL HISTORY: Pneumothorax COMPARISON: 8 hours prior FINDINGS: The heart size is mildly enlarged. A biventricular pacemaker is present. Right pleural drain is in place without convincing pneumothorax. There is no focal infiltrate or edema. There are no pleural effusions. There is no osseous abnormality. IMPRESSION: No acute cardiopulmonary process. No evidence of pneumothorax. Reviewed, Interpreted and Dictated by Marcos Hannon MD Transcribed by Mariah Sanabria Authenticated and [facility]
--- NOTE | 2024-08-10 14:54 | PC.NURSE ---
Chest tube removed by Dr. Weiss at 1415. Patient tolerated well. starting to wean oxygen per dr. weiss
--- NOTE | 2024-08-10 15:15 | XR_ITS ---
FINAL REPORT CLINICAL HISTORY: check for pneumothorax..JUST took at chest tube COMPARISON: 08/10/2024 FINDINGS: There has been interval removal of the right pigtail chest tube. No definite pneumothorax identified. The heart size is mildly enlarged. A biventricular pacemaker is present. There is no focal infiltrate or edema. There are no pleural effusions. There is no osseous abnormality. IMPRESSION: No evidence of pneumothorax after chest tube removal. Reviewed, Interpreted and Dictated by Marcos Hannon MD Transcribed by Mariah Sanabria Authenticated and [facility]
--- NOTE | 2024-08-10 16:01 | EXP.DC.SUM ---
General Admission date:: 08/09/24 HPI HPI HPI: Isac Hudson is a 84-year-old male with a medical history significant for A-fib on Eliquis, type 2 diabetes, hypothyroidism, GERD, former smoker, hypertension who presented for an outpatient CT-guided biopsy of lung mass. Unfortunately the procedure led to a small pneumothorax s/p chest tube placement. Patient states he feels better since the chest tube has been placed, but continues to have significant right-sided chest/flank pain where chest tube was inserted. Denies mid chest pain, shortness of breath, abdominal pain. Chest tube suction is set to 30 at the time of interview with repeat CT chest revealing small right apical and anterior pneumothorax. I discussed findings with pulmonology who agreed these findings are small in nature that will self absorb over time. Patient was admitted for monitoring of pneumothorax s/p pigtail chest tube placement. Hospital Course Hospital Course Hospital Course: Isac Hudson is a 84-year-old male with a medical history significant for A-fib on Eliquis, type 2 diabetes, hypothyroidism, GERD, former smoker, hypertension who presented for an outpatient CT-guided biopsy of lung mass. Unfortunately the procedure led to a small pneumothorax s/p chest tube placement. Patient states he feels better since the chest tube has been placed, but continues to have significant right-sided chest/flank pain where chest tube was inserted. Denies mid chest pain, shortness of breath, abdominal pain. Chest tube suction is set to 30 at the time of interview with repeat CT chest revealing small right apical and anterior pneumothorax. I discussed findings with pulmonology who agreed these findings are small in nature that will self absorb over time. Patient was admitted for monitoring of pneumothorax s/p pigtail chest tube placement. #Postprocedural small pneumothorax #Small apical, anterior pneumothoraces. ? Small pneumothorax after routine CT-guided biopsy of lung mass. ? S/p pigtail chest tube placement, however repeat CT chest revealed small apical and anterior pneumothoraces. ? Discussed case with pulmonology, who agreed these pneumothoraces are quite small in nature and will self absorb. ? Repeat CXR did not show pneumothorax after chest tube was water-sealed. It was removed without complications. Patient remained stable, saturating appropriately on room air. ? Right pleuritic chest pain essentially resolved after removing chest tube, and a lidocaine patch was also placed before that. Likely pain from the insertion site for the biopsy. ? Discharged with lidocaine patches as needed. #Lung mass ? 2 cm irregular shaped peribronchial nodule opacity seen on CT in April 2024. ? S/p CT-guided biopsy on 08/09/2024. Pending results. ? Will follow-up with pulmonology within 2 weeks. Chronic medical problems: #Hypothyroidism ? TSH low 0.02, decrease levothyroxine from 150-100 mcg. ? Recommend repeating TFTs in 4 to 6 weeks. #A-fib #Hypertension ? Rate controlled. ? Resume home Coreg, Eliquis. #Ascending aortic aneurysm ? CT chest reveals fusiform ascending aortic aneurysm with a maximal diameter of 4.9 cm. Stable, 4.8 cm last year. Follows with cardiology. #Type 2 diabetes ? Hemoglobin A1c 5.8. Continue home regimen. #GERD ? Resume home PPI. Exam Data for Last 24 hours Vital signs and Labs for Last 24 Hours: Temp Pulse Resp BP Pulse Ox O2 Del Method O2 Flow Rate 97.7 F 85 20 103/62 L 99 Nasal Cannula 2 08/10/24 12:00 08/10/24 12:00 08/10/24 12:00 08/10/24 12:00 08/10/24 12:00 08/10/24 15:00 08/10/24 15:00 Laboratory Results - last 24 hr 08/10/24 05:33: WBC 8.4, RBC 4.37 L, Hgb 12.8 L, Hct 40.1 L, MCV 91.8, MCH 29.3, MCHC 31.9, RDW 13.9, Plt Count 189, MPV 9.9, Neut % (Auto) 66.4, Lymph % (Auto) 24.9, [place] % (Auto) 7.2, Eos % (Auto) 0.7, Baso % (Auto) 0.4, Neut # (Auto) 5.6, Lymph # (Auto) 2.1, [place] # (Auto) 0.6, Eos # (Auto) 0.1, Baso # (Auto) 0.0, Sodium 138, Potassium 4.3, Chloride 103, Carbon Dioxide 29, Anion Gap 10.3, BUN 21 H, Creatinine 1.00, Estimated Creat Clear 58, Estimated GFR 71, Est GFR ( Amer) 86, Glucose 92 D, Hemoglobin A1c 5.8, Calcium 8.8, Magnesium 1.9, Total Bilirubin 0.5, AST 33, ALT 24, Alkaline Phosphatase 187 H, Total Protein 6.0 L, Albumin 3.4 L, Globulin 2.6, Albumin/Globulin Ratio 1.3, TSH 0.02 L 08/10/24 11:23: POC Glucose 98 I & O for Last 24 hours: Intake & Output 08/07/24 08/08/24 08/09/24 08/10/24 23:59 23:59 23:59 23:59 Intake Total 180 / 420 1110 / 1110 Output Total 1150 / 1160 320 / 320 Balance -970 / -740 790 / 790 Weight 75.381 kg 74.984 kg Microbiology Reports for the Last 24 Hours: Microbiology 08/09/24 11:09 Sputum - Expectorated Sputum Gram Stain - Final 08/09/24 11:09 Sputum - Expectorated Sputum Sputum Culture - Preliminary Constitutional Constitutional: no acute distress *Routine HEENT Exam Head: Present normocephalic Eye: Present EOMI ENT: Present mucous membranes moist *Routine Neck Exam Neck: Present supple; Absent lymphadenopathy *Routine Respiratory Exam Respiratory: Present CTA bilaterally, normal respiratory effort and symmetric chest movement *Routine Cardiovascular Exam Cardiovascular: Present RRR; Absent murmur *Routine Abdominal Exam Abdominal: Present soft and normoactive bowel sounds; Absent tenderness *Routine Extremities Exam Extremities: Absent cyanosis, clubbing or edema *Routine Skin Exam Skin: Present warm; Absent rash *Routine Neurological Exam Neurological: Present alert, oriented X3 and moving all extremities Routine Psychiatric Exam Psychiatric: Present normal affect and cooperative Results Data Completed and Pending Labs on day of discharge: Labs from last 24 hours 08/10/24 08/10/24 11:23 05:33 WBC 8.4 RBC 4.37 L Hgb 12.8 L Hct 40.1 L MCV 91.8 MCH 29.3 MCHC 31.9 RDW 13.9 Plt Count 189 MPV 9.9 Neut % (Auto) 66.4 Lymph % (Auto) 24.9 [place] % (Auto) 7.2 Eos % (Auto) 0.7 Baso % (Auto) 0.4 Neut # (Auto) 5.6 Lymph # (Auto) 2.1 [place] # (Auto) 0.6 Eos # (Auto) 0.1 Baso # (Auto) 0.0 Sodium 138 Potassium 4.3 Chloride 103 Carbon Dioxide 29 Anion Gap 10.3 BUN 21 H Creatinine 1.00 Estimated Creat Clear 58 Estimated GFR 71 Est GFR ( Amer) 86 Glucose 92 D POC Glucose 98 Hemoglobin A1c 5.8 Calcium 8.8 Magnesium 1.9 Total Bilirubin 0.5 AST 33 ALT 24 Alkaline Phosphatase 187 H Total Protein 6.0 L Albumin 3.4 L Globulin 2.6 Albumin/Globulin Ratio 1.3 TSH 0.02 L Preliminary micro results at discharge 08/09/24 11:09 Sputum Culture - Preliminary Sputum - Expectorated Sputum DS: Diagnosis Discharge Diagnosis (1) Lung nodule seen on imaging study: Status: Acute Code(s): R91.1 - Solitary pulmonary nodule (2) Pneumothorax: Status: Acute Code(s): J93.9 - Pneumothorax, unspecified Meds Home Medications and Allergies Home Medications ?Medication ?Instructions ?Recorded ?Confirmed ?Type tamsulosin 0.4 mg capsule 0.4 mg PO HS 01/15/23 08/09/24 History apixaban 5 mg tablet (Eliquis) 5 mg PO BID 01/20/23 08/09/24 History fluticasone fur. 100 mcg-umeclid 1 inh inhalation DAILY 11/02/23 08/09/24 History 62.5 mcg-vilant 25 mcg inhalat.powder (Trelegy Ellipta) pravastatin 40 mg tablet 40 mg PO HS 11/02/23 08/09/24 History empagliflozin 10 mg tablet 10 mg PO DAILY 12/28/23 08/09/24 History pantoprazole 40 mg tablet,delayed 40 mg PO DAILY 12/28/23 08/09/24 History release spironolactone 25 mg tablet 12.5 mg PO DAILY 12/28/23 08/09/24 History allopurinol 300 mg tablet 300 mg PO DAILY #90 tabs 01/07/24 08/09/24 Rx carvedilol 3.125 mg tablet 3.125 mg PO BID #30 tabs 01/18/24 08/09/24 Rx sacubitril 24 mg-valsartan 26 mg 0.5 tab PO BID #15 tabs 01/18/24 08/09/24 Rx tablet (Entresto) lactulose 20 gram/30 mL oral 20 g PO DAILYP PRN Constipation 02/10/24 08/09/24 History solution vit C 250 mg-vit E 90 mg-zinc 40 1 tab PO BID 02/10/24 07/29/24 History mg-copper 1 ke-fbsvty-trhckw capsule (PreserVision AREDS-2) gabapentin 100 mg capsule 100 mg PO BID #60 caps 07/12/24 08/09/24 Rx acetaminophen 500 mg tablet 500 mg PO Q6H PRN Fever Or Pain 08/09/24 08/09/24 History docusate sodium 100 mg tablet (DOK) 100 mg PO DAILY 08/09/24 08/09/24 History hydrocodone 5 mg-acetaminophen 325 1 tab PO Q6HP PRN pain 08/09/24 08/09/24 History mg tablet polyethylene glycol 3350 17 17 g PO DAILY 08/09/24 08/09/24 History gram/dose oral powder (Miralax) levothyroxine 100 mcg capsule 100 mcg PO DAILY #30 caps 08/10/24 Rx lidocaine 5 % topical patch 1 patch topical Q24H 15 days #15 ea 08/10/24 Rx New Prescriptions to Start Prescriptions: levothyroxine Patric Ramsey lidocaine Patric Ramsey Allergies Allergy/AdvReac Type Severity Reaction Status Date / Time No Known Allergies Allergy Verified 07/29/24 07:55 Discharge Plan Disposition Patient Disposition: [facility] Condition: Fair Discharge Order Discharge Orders: Discharge Order (Routine); Ordered 08/10/24 Ordered By: Patric Ramsey Follow up Plan Follow up with: Domingo Weiss MD [Physician] - 09/01/24 1:00 pm Prescriptions/Medication Reconciliation: New lidocaine 5 % Adhesive Patch,Medicated 1 patch topical Q24H 15 Days Qty: 15 0RF levothyroxine 100 mcg capsule 100 mcg PO DAILY Qty: 30 0RF Continued lactulose 20 gram/30 mL solution 20 g PO DAILYP PRN (Reason: Constipation) PreserVision AREDS-2 250-90-40-1 mg capsule 1 tab PO BID gabapentin 100 mg capsule 100 mg PO BID Qty: 60 2RF Eliquis 5 mg tablet 5 mg PO BID allopurinol 300 mg tablet 300 mg PO DAILY Qty: 90 1RF tamsulosin 0.4 mg Capsule 0.4 mg PO HS pravastatin 40 mg tablet 40 mg PO HS Trelegy Ellipta 100-62.5-25 mcg blister with device 1 inh INHALATION DAILY pantoprazole 40 mg Tablet,Delayed Release (Dr/Ec) 40 mg PO DAILY empagliflozin 10 mg Tablet 10 mg PO DAILY carvedilol 3.125 mg Tablet 3.125 mg PO BID Qty: 30 0RF hydrocodone-acetaminophen 5-325 mg tablet 1 tab PO Q6HP PRN (Reason: pain) acetaminophen 500 mg Tablet 500 mg PO Q6H PRN (Reason: Fever Or Pain) polyethylene glycol 3350 [Miralax] 17 gram/dose Powder 17 g PO DAILY docusate sodium [DOK] 100 mg tablet 100 mg PO DAILY Held spironolactone 25 mg Tablet 12.5 mg PO DAILY Hold Instructions: Resume on 08/17/24. Hold this medication as her blood pressure has been soft during admission. Talk to your provider before restarting this medication. sacubitril-valsartan [Entresto] 24-26 mg Tablet 0.5 tab PO BID Qty: 15 0RF Hold Instructions: Resume on 08/17/24. Hold this medication as her blood pressure has been soft during admission. Talk to your provider before restarting this medication. Discontinued levothyroxine 150 mcg tablet 150 mcg PO DAILY Qty: 90 3RF Problem Reconciliation Problems Reviewed?: Yes Patient Discharge Instructions Patient Instructions: DI for Pneumothorax, DI for Surgical Site Infection Print Language: Azerbaijani Providers Primary Care Provider: Eamon Vicente Admit Provider: Patric Ramsey Attending Provider: Patric Ramsey
--- NOTE | 2024-08-10 16:16 | PC.NURSE ---
Patient walked around unit once and tolerated well. Room air 92%. Lung sounds diminished. Pain relieved with prn pain medications.
== END 2024-08-10 17:38 ==
LOC: ICU 10:24
PROVIDERS: Admitting Provider Student in an Organized Health Care Education/Training Program; PCP Family Medicine; Visit Provider Student in an Organized Health Care Education/Training Program
DX: J95.811 Postprocedural pneumothorax (principal); R91.1 Solitary pulmonary nodule; E11.9 Type 2 diabetes mellitus without complications; I48.91 Unspecified atrial fibrillation; E78.5 Hyperlipidemia, unspecified; I71.21 Aneurysm of the ascending aorta, without rupture; E03.9 Hypothyroidism, unspecified; K21.9 Gastro-esophageal reflux disease without esophagitis; Z79.01 Long term (current) use of anticoagulants; Z79.51 Long term (current) use of inhaled steroids; Z79.84 Long term (current) use of oral hypoglycemic drugs; Z79.890 Hormone replacement therapy; Z87.891 Personal history of nicotine dependence; Z95.810 Presence of automatic (implantable) cardiac defibrillator
CPT/HCPCS: G0379; 36415; 71045; 71250; 77012; 80048; 80053; 82962; 83036; 83735; 84443; 85025; 87070; 87205; 87633; C1729; C1769; G0378; J1171; J2250; J3010; J3475

== ENCOUNTER 2024-10-18 07:12 | Day surgery (SDC) | payer MEDICARE, MEDICAID, SELFPAY ==
[2024-10-12 12:16] VITALS: BMI 23.9
[2024-10-18 10:37] VITALS: BP 111/74; PULSE 84; RESP 17; TEMP 36.3; O2SAT 97
[2024-10-18] MEDS: PHENYLEPHRINE 2.5% OPHTH SOLN 2ML OP (10:57)
[2024-10-18] MEDS: TROPICAMIDE 1% OPTH SOLN 2ML OP (10:57)
[2024-10-18] MEDS: TETRACAINE 0.5% OPTH SOL 15ML OP (10:57)
[2024-10-18] MEDS: APRACLONIDINE 0.5% OPHTH SOLN 5ML OP (10:57)
--- NOTE | 2024-10-18 11:53 | HMH.PROCNOTE ---
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 The patient has noticed that the vision has decreased from the previous good level postop. The patient reports that he/she is having trouble reading and/or driving or that glare is giving them a problem. On exam, the patient was found to have visually significant posterior capsular opacification. The treatment options, risks and benefits were explained and the patient elected to have YAG laser capsulotomy in an attempt to improve the vision. Of note, the best corrected visual acuity is in the 23/30 or worse range by refraction or glare testing. The eye was dilated and 1 drop of 0.5% Iopidine applied. YAG laser energy was applied to the posterior capsular bag with good formation of an opening and no complications were noted. The patient will be seen back for follow up in 2 weeks 40 pulses, 142mj
== END 2024-10-18 11:33 | disposition home or self-care (01) ==
LOC: OUTP 07:13
PROVIDERS: PCP Family Medicine; Visit Provider Ophthalmology
PROC: (CPT 66821; principal; 2024-10-18 13:00)
DX: H26.492 Other secondary cataract, left eye (principal)
CPT/HCPCS: 66821

== ENCOUNTER 2024-11-01 07:18 | Day surgery (SDC) | payer MEDICARE, MEDICAID, SELFPAY ==
[2024-10-27 14:01] VITALS: BMI 22.4
[2024-11-01] MEDS: TETRACAINE 0.5% OPTH SOL 15ML OP (13:03)
[2024-11-01] MEDS: APRACLONIDINE 0.5% OPHTH SOLN 5ML OP (13:03)
[2024-11-01] MEDS: PHENYLEPHRINE 2.5% OPHTH SOLN 2ML OP (13:05)
[2024-11-01] MEDS: TROPICAMIDE 1% OPTH SOLN 2ML OP (13:05)
[2024-11-01 13:12] VITALS: BP 147/87; PULSE 89; RESP 18; TEMP 36.2; O2SAT 97
--- NOTE | 2024-11-01 14:12 | P.PCN_ITS ---
[facility] Procedure Note Date: 11/01/24 Time: 14:12 Procedure Note:: Preoperative diagnosis: Posterior Opacification [Right] eye Postoperative diagnosis: same Operation: YAG Laser Capsulotomy The patient has undergone uneventful cataract surgery in the past. The patient has noticed that the vision has decreased from the previous good level postop. The patient reports that he/she is having trouble reading and/or driving or that glare is giving them a problem. On exam, the patient was found to have visually significant posterior capsular opacification. The treatment options, risks and benefits were explained and the patient elected to have YAG laser capsulotomy in an attempt to improve the vision. Of note, the best corrected visual acuity is in the 23/30 or worse range by refraction or glare testing. The eye was dilated and 1 drop of 0.5% Iopidine applied. YAG laser energy was applied to the posterior capsular bag with good formation of an opening and no complications were noted. The patient will be seen back for follow up in 2 weeks 21 pulses 78mj
== END 2024-11-01 14:00 | disposition home or self-care (01) ==
PROVIDERS: PCP Family Medicine; Visit Provider Ophthalmology
PROC: (CPT 66821; principal; 2024-11-01 14:00)
DX: H26.491 Other secondary cataract, right eye (principal)
CPT/HCPCS: 66821

== ENCOUNTER 2024-11-30 13:20 | Outpatient (CLI) | payer MEDICARE, MEDICAID, SELFPAY ==
[2024-11-30 14:00] VITALS: PULSE 63; PULSE 67
[2024-11-30] MEDS: ALBUTEROL 0.083% 2.5 MG/3 ML NEB IH (14:00)
== END 2024-11-30 23:59 | disposition home or self-care (01) ==
LOC: RT 13:21
PROVIDERS: PCP Family Medicine; Visit Provider Internal Medicine Pulmonary Disease
DX: J44.9 Chronic obstructive pulmonary disease, unspecified (principal)
CPT/HCPCS: 94010; 94618; 94640; 94727; 94729

== ENCOUNTER 2024-12-21 07:27 | Outpatient (CLI) | payer MEDICARE, MEDICAID, SELFPAY ==
--- OUTSIDE RECORDS SUMMARY | 2024-12-21 07:30 | XMS_ITS | Clinical Summary ---
Author Organization [facility] Address [address] [place] [address] Care Team Providers Care Underwear Cutter Name Role Phone Johnnie Lincoln MD Primary Care Provider [phone] Dany Reyes MD Unavailable [phone] Allergies No known active allergies Medications pantoprazole (ProtoNix) 40 MG EC tablet Take 40 mg by mouth 1 (one) time each day. 1 Active allopurinol (Zyloprim) 300 MG tablet TAKE 1 TABLET BY MOUTH ONCE DAILY FOR 90 DAYS 1 Active bisoprolol (Zebeta) 10 MG tablet TAKE 1 TABLET BY MOUTH ONCE DAILY FOR HEART RATE 1 Active digoxin (Lanoxin) 125 MCG tablet Take 125 mcg by mouth 1 (one) time each day. 1 Active Entresto 97-103 MG tablet 1 tablet 2 (two) times a day. 1 Active pravastatin (Pravachol) 40 MG tablet TAKE 1 TABLET BY MOUTH EVERY DAY AT BEDTIME FOR CHOLESTEROL 1 Active levothyroxine (Synthroid, Levoxyl) 100 MCG tablet Take 1 tablet (100 mcg) by mouth 1 (one) time each day. 1 Active furosemide (Lasix) 40 MG tablet 1 tablet 1 (one) time each day. 1 Active Multiple Vitamins-Minera ls (PRESERVISION AREDS 2+MULTI VIT PO) Take 1 tablet by mouth 1 (one) time each day. Active Fluticasone-Ume clidin-Vilant (Trelegy Ellipta) 100-62.5-25 MCG/ACT aerosol powder Inhale. Active tamsulosin (Flomax) 0.4 MG 24 hr capsule Take 1 capsule (0.4 mg) by mouth 1 (one) time each day with dinner. 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 01/16 Overweight (BMI 25.0-29.9) 02/07/2021 Ascending aortic aneurysm 01/15/2021 COPD (chronic obstructive pulmonary disease) 12/2020 Hypertension 01/15/2021 Hyperlipidemia 01/15/2021 Hypothyroid 01/15/2021 GERD (gastroesophageal reflux disease) Chronic systolic heart failure 01/15/2021 Cardiomyopathy 01/15/2021 Paroxysmal atrial fibrillation 01/15/2021 Resolved Problems Problem Noted Date Diagnosed Date Resolved Date Pneumonia of left lower lobe due to infectious organism 01/16/2023 07/16/2023 Anticoagulated on Coumadin 01/15/2021 0 07/16/2023 Immunizations Immunization Administration Dates Next Due Influenza, seasonal, injectable 05/26/2008,05/05 Pneumococcal 20-hi Conj Vaccine 10/07/2022 Zoster, Recombinant 12/15/2022,10/07/2022 Family History Medical History Relation Name Comments Cancer Brother brain cancer Aneurysm Father Relation Name Status Comments Brother Father Social History Tobacco Use Types Packs/Day Years Used Date Smoking Tobacco: Former Cigarettes 2 45 1 954 - 1998 Smokeless Tobacco: Never Tobacco Cessation:Counseling Given: Not Answered Alcohol Use Standard Drinks/Week Comments Yes 0 (1 standard drink = 0.6 oz pur e alcohol) occasional Sex and Gender Information Value Date Recorded Sex Assigned at Not on file Legal Sex Male 6:43 PM EDT Gender Identity Not on file Sexual Orientation Not on file Occupation Industry Job Start Date Job End Date retired Not on file Not on file Not on file retired Not on file Not on file Not on file Last Filed Vital Signs Vital Sign Reading Time Taken Comments Blood Pressure 158/99 10/27/2023 2:53 PM EDT Pulse 72 10/27/2023 2:53 PM EDT Temperature 36.5 C (97.7 F) 10/27/2023 2:53 PM EDT Respiratory Rate 15 10/27/2023 2:53 PM EDT Oxygen Saturation 95% 10/27/2023 2:53 PM EDT RA Inhaled Oxygen Concentration - - Weight 92.9 kg (204 lb 12.8 oz) 024 12:16 PM EST Height 177.8 cm (5' 10 ) 07/16/2023 12: 16 PM EST Body Mass Index 29.39 07/16/2023 12:16 PM EST Plan of Treatment Health Maintenance Due Date Last Done Comments [facility]-Depression Screening 1940 [facility]-Medicare Annual Wellness (AWV) 1940 [facility]-/Child/Adol SDOH Screenings 1940 [facility]- SDOH Screenings 1957 [facility]-Adult SDOH Screenings 1957 [facility]-DTaP,Tdap,and Td Vaccines (1 - Tdap) 1958 [facility]-RSV Vaccine: 60+ Years or (1 - 1-dose 75+ series) 2014 [id number]-[id number]-70 Vaccine ( season) 2024 04/14/2022, 10/30/2021, 05/08/2021, Additional history exists [facility]-Influenza Vaccine (Season Ended) 2025 05/26/2008, 05/05/2007 [facility]-Pneumococcal Vaccine: 50+ Years Completed 10/07/2022 [facility]-Zoster Vaccines Completed 12/15/2022, [facility]-Obesity Intervention Completed 07/16/2023 HPV Vaccines Aged Out No longer eligi ble based on patient's age to complete this topic [facility]-HIB Vaccines Aged Out No longer e ligible based on patient's age to complete this topic [facility]-Hepatitis A Vaccines Aged Out No longer eligible based on patient's age to complete this topic [facility]-IPV Vaccines Aged Out No longer e ligible based on patient's age to complete this topic [facility]-Rotavirus Vaccines Aged Out No lo nger eligible based on patient's age to complete this topic Insurance Care Teams Underwear Cutter Relationship Specialty Start Date End Date Johnnie Lincoln MD [facility] [address] [place] [address] PCP - General 11/23/20 Dany Reyes MD [facility] [place] [address] Referring Physician 02/07/21
--- OUTSIDE RECORDS SUMMARY | 2024-12-21 07:30 | XMS_ITS | Encounter Summary ---
Author Organization Healthcare Address [address] [place] [address] Care Team Providers Care Tool Grinder Operator Name Role Phone Johnnie Lincoln MD Primary Care Provider [phone] Dany Reyes MD Unavailable [phone] Encounter Details Date Type Department Care Team (Late st Contact Info) Description 10/14/2023 Orders Only External Location [address] [place] [address] Provider, External Social History Tobacco Use Types Packs/Day Years Used Date Smoking Tobacco: Former Cigarettes 2 45 1 954 - 1998 Smokeless Tobacco: Never Alcohol Use Standard Drinks/Week Comments Yes 0 [...] file Not on file Not on file documented as of this encounter Plan of Treatment Not on file documented as of this encounter Procedures Procedure Name Priority Date/Time Associated Diagnosis Comments US OUTSIDE IMAGES 10/14/2023 4:28 PM EDT documented in this encounter Results * US OUTSIDE IMAGES (10/14/2023 4:28 PM EDT) Anatomical Region Laterality Modality Ultrasound 10/14/2023 4:28 PM EDT us External Provider IMG US PROCEDURES Final Result documented in this encounter Visit Diagnoses Not on filedocumented in this encounter Additional Health Concerns Assessment Noted Time A Body Mass Index follow-up plan has been documented for the patient 07/16/2023 2:05 PM EST documented as of this encounter Care Teams Tool Grinder Operator Relationship Specialty Start Date End Date Johnnie Lincoln MD [address] [place] [address] PCP - General 11/23/20 Dany Reyes MD [facility] [address] [address] Referring Physician 02/07/21 documented as of this encounter
--- OUTSIDE RECORDS SUMMARY | 2024-12-21 07:30 | XMS_ITS | Clinical Summary ---
Author Organization [facility] Address [address] [place] [address] Care Team Providers Care Pipe Fitter Maintenance Name Role Phone Johnnie Lincoln MD Primary Care Provider [phone] Allergies No known active allergies Medications apixaban (ELIQUIS) 5 mg Tab tablet Take 1 tablet (5 mg total) by mouth 2 (two) times daily. Active sacubitriL-vals kendra (Entresto) 97-103 mg tablet Take 1 tablet by mouth 2 (two) times daily. Active allopurinoL (ZYLOPRIM) 100 MG tablet Take 1 tablet (100 mg total) by mouth daily. Active fluticasone-ume clidin-vilanter (Trelegy Ellipta) 100-62.5-25 mcg DsDv Inhale by mouth via inhaler. Active tamsulosin (FLOMAX) 0.4 mg Cap 24 hr capsule Take 1 capsule (0.4 mg total) by mouth daily. Active levothyroxine (SYNTHROID, LEVOTHROID) 150 MCG tablet Take 1 tablet (150 mcg total) by mouth Every morning on an empty stomach. Active pravastatin (PRAVACHOL) 40 MG tablet Take 1 tablet (40 mg total) by mouth nightly. Active lidocaine (LIDODERM) 4 % patch Place 1 patch onto the skin daily. 0 12/16/2023 Active oxyCODONE (ROXICODONE) 15 MG immediate release tablet Take 0.5 tablets (7.5 mg total) by mouth every 6 (six) hours as needed Look-alike /Sound-alike medication . Max Daily Amount: 30 mg 10 tablet 12/16/2023 Active empagliflozin (JARDIANCE) 10 mg tablet Take 1 tablet (10 mg total) by mouth daily. 0 12/18/2023 Active pantoprazole (PROTONIX) 40 MG tablet Take 1 tablet (40 mg total) by mouth daily. 0 12/18/2023 Active gabapentin (NEURONTIN) 100 MG capsule Take 1 capsule (100 mg total) by mouth 2 (two) times daily. Max Daily Amount: 200 mg 10 capsule 12/16/2023 12/16/19 25 carvediloL (COREG) 12.5 MG tabletIndicatio ns:Acute on chronic systolic (congestive) heart failure (HCC) Take 1 tablet (12.5 mg total) by mouth 2 (two) times daily. 0 12/18/2023 12/18/19 25 spironolactone (ALDACTONE) 25 MG tablet Take 0.5 tablets (12.5 mg total) by mouth daily. 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 No 12/08/2023 Interpersonal Safety Answer Date Record ed How often does anyone, antonia welch family and friends, physically hurt you? Never 12/08/2023 How often does anyone, antonia welch family and friends, insult or talk down to you? Never 12/08/2023 How often does anyone, antonia welch family and friends, threaten you with harm? Never 12/08/2023 How often does anyone, antonia welch family and friends, scream or curse at you? Never 12/08/2023 Housing Stability Answer Date Recorded What is your living situation today? I have a [facility] [place] place to live 12/08/[address] you li ve. Do you have problems with any of the following? None of the above 12/08/2023 Food Insecurity Answer Date Recorded Within the past 12 months, y ou worried that your food would run out before you got money to buy more. Never true 12/08/2023 Within the past 12 months, t he food you bought just didn't last and you didn't have money to get more. Never true 12/08/2023 Transportation Needs Answer Date Record ed In the past 12 months, has l ack of reliable transportation kept you from medical appointments, meetings, work or from getting things needed for daily living? No 12/08/2023 Financial Resource Strain Answer Date R ecorded How hard is it for you to pa y for the very basics like food, housing, medical care, and heating? Would you say it is: Somewhat hard 12/08/2023 Employment Answer Date Recorded Do you want help finding or keeping work or a job? I do not need or want help 12/08/2023 Family and Community Support Answer Livan e Recorded If for any reason you need h elp with day-to-day activities such as bathing, preparing meals, shopping, managing finances, etc., do you get the help you need? I don't need any help 12/08/2023 Feeling Lonely or Isolated 0 12/07 Educational Attainment Answer Date Aditya rded Do you speak a language other than Spanish at [facility]? No 12/08/2023 Do you want help with school or training? For example, starting or completing job training or getting a high school diploma, GED or equivalent. No 12/08/2023 Physical Activity Answer Date Recorded Number of minutes of exercise per week 0 12/08/2023 Alcohol Use Answer Date Recorded 5 or More Drinks Per Day Past 12 Months 0 05/28/2024 Depression Answer Date Recorded Calculation of above two rows 1 Stress Answer Date Recorded Stress means a situation in which a person feels tense, restless, nervous, or anxious, or is unable to sleep at night because his or her mind is troubled all the time. Do you feel this kind of stress these days? A little bit 12/08/2023 Disabilities Answer Date Recorded Because of a physical, menta l, or emotional condition, do you have serious difficulty concentrating, remembering, or making decisions? (5 years or older) No 12/08/2023 Because of a physical, menta l, or emotional condition, do you have difficulty doing errands alone such as visiting a doctor's office or shopping? (15 years or older) Yes 12/08/2023 Substance Use Answer Date Recorded How many times in the past y ear have you used prescription drugs for non-medical reasons? Never 12/08/2023 How many times in the past year have you used [place] legal drugs? Never 12/08/2023 Sex and Gender Information Value Date Recorded Sex Assigned at Not on file Legal Sex Male 1:39 PM CDT Gender Identity Not on file Sexual Orientation Not on file Last Filed Vital Signs Vital Sign Reading Time Taken Comments Blood Pressure 128/68 12/18/2023 8:22 AM EDT Pulse 70 12/18/2023 8:22 AM EDT Temperature 36.2 C (97.2 F) 12/18/2023 8:22 AM EDT Respiratory Rate 16 12/18/2023 8:22 AM EDT Oxygen Saturation 98% 12/18/2023 8:22 AM EDT Inhaled Oxygen Concentration 28% 11/05/2023 1 0:04 PM EDT Weight 85.3 kg (188 lb) 12/09/2023 1:45 PM EDT Height 177.8 cm (5' 10 ) 12/09/2023 1:45 PM EDT Body Mass Index 26.98 12/09/2023 1:45 PM EDT Plan of Treatment Health Maintenance Due Date Last Done Comments Depression Screening (12+) 1952 DTAP/TDAP/TD VACCINES (1 - Tdap) 1958 Respiratory Syncytial Virus (RSV) Adult or (1 - 1-dose 75+ series) 2014 Medicare Initial AWV G0438 07/14/2023 COVID-19 VACCINE (6 - 2023-2 5 season) 2024 04/14/2022, 10/30/2021, 05/08/2021, Additional history exists Falls Risk Screening 07/13/2024 Tobacco Cessation Counseling and Screening (12+) 11/02/2024 11/03/2023 Influenza Vaccine (Season Ended) 2025 Pneumococcal 50+ years Completed 10/07/2022 Shingles Vaccine (Zoster) Completed 2022, 12/14/2022, 10/07/2022, Additional history exists Medical Devices Implanted Type Area Dog Raiser Device Identifier Shelf Expiration Date Model / Serial / Lot Cardiovascular Cardiovascular G1 48 / / Description: NO MRI Abando barry Lead per Cardiology. Currently has BS G148 from 2017, with lead # [id number], [id number], RV [id number] Insurance [facility] HMO Advance Directives For more information, please contact: [phone] * DNR - Limited Additional Intervention (Latest Code Status on File) Date Activated Date Inactivated Comments 12/17/2023 2:04 PM 12/18/2023 11:56 AM If no pulse: NO intervention If has pulse: NO Intubation. May use BiPAP/CPAP Call [facility] * Full Code Date Activated Date Inactivated Comments 12/08/2023 10:49 PM 12/17/2023 2:04 PM -Attempt Res uscitation if person has no pulse and is not breathing. -If no pulse or not breathing attempt CPR/CODE. -Call Rapid Response if patient is in distress. * Full Code Date Activated Date Inactivated Comments 11/02/2023 10:58 PM 11/26/2023 11:21 AM Care Teams Pipe Fitter Maintenance Relationship Specialty Start Date End Date Johnnie Lincoln MD [address] [place] [id number] PCP - General General Internal Medicine 11/03/23
--- OUTSIDE RECORDS SUMMARY | 2024-12-21 07:30 | XMS_ITS | Referral Summary ---
Author Organization [facility] [employer] Address [address] [place] [address] Care Team Providers Care Battery Tester And Repairer Name Role Phone Johnnie Lincoln MD Primary Care Provider [phone] Allergies No known active allergies Medications apixaban [...] Do you speak a language other than Danish at [facility]? No 12/08/2023 Do you want [...] 12/09/2023 1:45 PM EDT Plan of Treatment Not on file Medical Devices Implanted Type Area Cane Flume Watchman Device Identifier Shelf Expiration Date Model / Serial / Lot Cardiovascular Cardiovascular G1 48 / / Description: NO MRI Abando barry Lead per Cardiology. Currently has BS G148 from 2017, with lead # [id number], [id number], RV [id number] Insurance [employer] MEDICARE HMO Advance Directives For more information, please contact: [phone] * DNR - Limited Additional Intervention (Latest Code Status on File) Date Activated Date Inactivated Comments 12/17/2023 2:04 PM 12/18/2023 11:56 AM If no pulse: NO intervention If has pulse: NO Intubation. May use BiPAP/CPAP Call [employer] * Full Code Date Activated Date Inactivated Comments 12/08/2023 10:49 PM 12/17/2023 2:04 PM -Attempt Res uscitation if person has no pulse and is not breathing. -If no pulse or not breathing attempt CPR/CODE. -Call Rapid Response if patient is in distress. * Full Code Date Activated Date Inactivated Comments 11/02/2023 10:58 PM 11/26/2023 11:21 AM Care Teams Battery Tester And Repairer Relationship Specialty Start Date End Date Johnnie Lincoln MD [address] [place] [id number] PCP - General General Internal Medicine 11/03/23
--- OUTSIDE RECORDS SUMMARY | 2024-12-21 07:30 | XMS_ITS | Encounter Summary ---
Author Organization Healthcare Address [address] [place] [address] Care Team Providers Care Nursing Clinical Director Name Role Phone Johnnie Lincoln MD Primary Care Provider [phone] Dany Reyes MD Unavailable [phone] Encounter Details Date Type Department Care Team (Late st Contact Info) Description 06/18/2023 Orders Only External Location [address] [place] [address] Jason SanchezBRADLEY, [place] [address] [place] [address] Social History Tobacco Use Types Packs/Day Years [...] Procedure Name Priority Date/Time Associated Diagnosis Comments CT ANGIO CHEST 06/18/2023 2:55 PM EST documented in this encounter Results * CT Angio Chest (06/18/2023 2:55 PM EST) Anatomical Region Laterality Modality Chest Computed Tomogra phy 06/18/2023 2:55 PM EST Jason REEDER IMG CT PROCEDURES Final Result documented in this encounter Visit Diagnoses Not on filedocumented in this encounter Care Teams Nursing Clinical Director Relationship Specialty Start Date End Date Johnnie Lincoln MD Counts include 234 beds at the [id number] [place], [place] [id number] PCP - General 11/23/20 Dany Reyes MD [address] [facility] [address] [place] [address] Referring Physician 02/07/21 documented as of this encounter
--- OUTSIDE RECORDS SUMMARY | 2024-12-21 07:30 | XMS_ITS | Encounter Summary ---
Author Organization Healthcare Address [address] [place] [address] Care Team Providers Care Timber Trimmer Name Role Phone Johnnie Lincoln MD Primary Care Provider [phone] Dany Reyes MD Unavailable [phone] Encounter Details Date Type Department Care Team (Late st Contact Info) Description 12/31/2020 Orders Only External Location [address] [place] [address] Provider, External Social History Tobacco Use Types Packs/Day Years Used Date Smoking Tobacco: Never Assessed Sex and Gender Information Value Date Recorded Sex Assigned at Not on file Legal Sex Male 6:43 PM EDT Gender Identity Not on file Sexual Orientation Not on file documented as of this encounter Plan of Treatment Not on file documented as of this encounter Procedures Procedure Name Priority Date/Time Associated Diagnosis Comments CT OUTSIDE IMAGES 12/31/2020 12:58 PM EDT documented in this encounter Results * CT OUTSIDE IMAGES (12/31/2020 12:58 PM EDT) Anatomical Region Laterality Modality Computed Tomogra phy 12/31/2020 12:5 8 PM EDT us External Provider IMG CT PROCEDURES Final Result documented in this encounter Visit Diagnoses Not on filedocumented in this encounter Care Teams Timber Trimmer Relationship Specialty Start Date End Date Johnnie Lincoln MD [address] [facility] [address] [place] [address] PCP - General 11/23/20 Dany Reyes MD [address] [place] [address] Referring Physician 02/07/21 documented as of this encounter
--- OUTSIDE RECORDS SUMMARY | 2024-12-21 07:30 | XMS_ITS | Clinical Summary ---
Author Organization [facility] Address [address] [place] [address] Phone Care Team Providers Care Story Editor Name Role Phone Johnnie Lincoln MD Primary Care Provider [phone] Allergies No known active allergies Medications LEVOthyroxine (SYNTHROID) 100 mcg Oral Tablet Take 100 mcg by mouth daily. Active allopurinoL (ZYLOPRIM) 300 mg Oral TabletIndicatio ns:prevention of acute gout attack Take 300 mg by mouth daily. Indications: treatment to prevent acute gout attack Active sacubitriL-vals kendra (ENTRESTO) 97-103 mg Oral Tablet Take 1 Tablet by mouth 2 times daily. Active pravastatin (PRAVACHOL) 40 mg Oral Tablet Take 40 mg by mouth daily. Active cyanocobalamin 1,000 mcg Oral Tablet Take 1,000 mcg by mouth daily. Active tamsulosin (FLOMAX) 0.4 mg Oral Capsule Take 0.4 mg by mouth daily. Active acetaminophen (TYLENOL) 500 mg Oral Tablet Take 2 Tablets by mouth every 6 hours as needed. 3 Active colchicine 0.6 mg Oral Tablet Take 1 Tablet by mouth 2 times daily. 6 Tablet 2 01/19/2023 10:59 AM EDT 3 Active tiotropium bromide (SPIRIVA RESPIMAT) 2.5 mcg/actuation Inhl Mist Inhale 2 Puffs into the lungs daily at 9AM 4 g 2 01/19/2023 11:09 AM EDT 3 Active apixaban (ELIQUIS) 5 mg Oral Tablet Take 1 Tablet by mouth 2 times daily. 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 Aguilera Anticoagulated on Coumadin 01/15/2021 Ascending aortic aneurysm 01/15/2021 Cardiomyopathy 01/15/2021 Chronic systolic heart failure 01/15/2021 COPD (chronic obstructive pulmonary disease) 12/2020 GERD (gastroesophageal reflux disease) Hyperlipidemia 01/15/2021 Hypertension 01/15/2021 Hypothyroid 01/15/2021 Nodule of lower lobe of left lung 01/15/2021 Overview (01/16/2023): 3.9 x 6 mm Paroxysmal atrial fibrillation 01/15/2021 Social History Tobacco Use Types Packs/Day Years Used Date Smoking Tobacco: Never Assessed Overall Financial Resource Strain (CARDIA) Answe r Date Recorded How hard is it for you to pa y for the very basics like food, housing, medical care, and heating? Not very hard 01/19/2023 PHQ-2 Answer Date Recorded PHQ-2 Total Score 0 01/19/2023 Exercise Vital Sign Answer Date Recorde d On average, how many days pe r week do you engage in moderate to strenuous exercise (like a brisk walk)? 7 days 01/19/2023 On average, how many minutes do you engage in exercise at this level? 20 min 01/19/2023 Hunger Vital Sign Answer Date Recorded Within the past 12 months, y ou worried that your food would run out before you got the money to buy more. Sometimes true Within the past 12 months, t he food you bought just didn't last and you didn't have money to get more. Never true 04/2023 PRAPARE - Transportation Answer Date Re corded In the past 12 months, has l ack of transportation kept you from medical appointments or from getting medications? No 01/10 In the past 12 months, has l ack of transportation kept you from meetings, work, or from getting things needed for daily living? No 01/19/2023 Sex and Gender Information Value Date Recorded Sex Assigned at Not on file Legal Sex Male 2:07 PM EDT Gender Identity Not on file Sexual Orientation Not on file Last Filed Vital Signs Vital Sign Reading Time Taken Comments Blood Pressure 134/92 01/19/2023 8:23 AM EDT Pulse 79 01/19/2023 8:57 AM EDT Temperature 36.3 C (97.4 F) 01/19/2023 8:23 AM EDT Respiratory Rate 16 01/19/2023 8:57 AM EDT Oxygen Saturation 96% 01/19/2023 8:57 AM EDT Inhaled Oxygen Concentration - - Weight 84.7 kg (186 lb 11.2 oz) 01/19/2023 5:44 AM EDT Height 177.8 cm (5' 10 ) 01/16/2023 2:36 AM EDT Body Mass Index 26.79 01/16/2023 2:36 AM EDT Plan of Treatment Health Maintenance Due Date Last Done Comments Wellness Exam Medicare 1943 DTaP/TDaP/Td (1 - Tdap) 1958 RSV or 60+ (1 - 1-dose 75+ series) 2014 COVID-19 Vaccine ( season) 2024 04/14/2022, 10/30/2021, 05/08/2021, Additional history exists Influenza Vaccine (Season Ended) 2025 05/26/2008, 05/05/2007 Pneumococcal Vaccine 50+ Completed 10/07/2022 Zoster Completed 12/15/2022, 10/07/2022 Hepatitis B Vaccine Aged Out No longe r eligible based on patient's age to complete this topic Meningococcal B Vaccine Aged Out No l onger eligible based on patient's age to complete this topic Insurance [place] [employer] HMO [place] [employer] [place] HMO MR Advance Directives For more information, please contact: [phone] * Full Code (Latest Code Status on File) Date Activated Date Inactivated Comments 01/16/2023 2:10 AM 01/19/2023 3:59 PM Care Teams Story Editor Relationship Specialty Start Date End Date Johnnie Lincoln MD [address] [place] [address] PCP - General Internal Medicine 01/16/23
--- OUTSIDE RECORDS SUMMARY | 2024-12-21 07:30 | XMS_ITS | Encounter Summary ---
Author Organization Healthcare Address [address] [place] [address] Care Team Providers Care Technical Assoc Name Role Phone Johnnie Lincoln MD Primary Care Provider [phone] Dany Reyes MD Unavailable [phone] Encounter Details Date Type Department Care Team (Late st Contact Info) Description 10/27/2023 Orders Only External Location [address] [place] [address] Provider, External Social History Tobacco Use Types [...] Date/Time Associated Diagnosis Comments CT OUTSIDE IMAGES 10/27/2023 1:14 PM EDT documented in this encounter Results * CT OUTSIDE IMAGES (10/27/2023 1:14 PM EDT) Anatomical Region Laterality Modality Computed Tomogra phy 10/27/2023 1:14 PM EDT us External Provider IMG CT PROCEDURES Final Result documented in this encounter Visit Diagnoses Not on filedocumented in this encounter Additional Health Concerns Assessment Noted Time A Body Mass Index follow-up plan has been documented for the patient 07/16/2023 2:05 PM EST documented as of this encounter Care Teams Technical Assoc Relationship Specialty Start Date End Date Johnnie Lincoln MD [facility] [address] [place] [address] PCP - General 11/23/20 Dany Reyes MD [facility] [address] [place], [place] [id number] Referring Physician 02/07/21 documented as of this encounter
--- OUTSIDE RECORDS SUMMARY | 2024-12-21 07:31 | XMS_ITS | Clinical Summary ---
Author Organization [facility] Address [address] [place] [address] Phone Care Team Providers Care Senior Pharmacy Technician Name Role Phone Felix DONIS, Jose Thayer Unavailable [phone] [ ] Conditions or Problems Problem Name Problem Code Onset Date Status Entry Date Provider Comment Standard Description Annotate Fall risk [id number] (SNOMED CT) Active Jose Washington MD At increased risk for falls Osteomyeliti s of vertebra, lumbosacral region M46.27 (ICD-10-CM) 12/17 Active 12/17 Eileen Parag Osteomyelitis of vertebra, lumbosacral region Osteomyeliti s of vertebra, lumbar region M46.26 (ICD-10-CM) 12/17 Active 12/17 Eileen Parag Osteomyelitis of vertebra, lumbar region Pulmonary infiltrates 188397469 (SNOMED CT) 12/17 Active 12/17 Eileen Parag Asthmatic pulmonary eosinophilia Lumbar region, infected discitis (pyogenic) (document infectious agent) M46.36 (ICD-10-CM) 12/17 Active 12/17 Eileen Parag Infection of intervertebral disc (pyogenic), lumbar region Discitis, lumbar region M46.46 (ICD-10-CM) 12/06 Resolved 12/06 Eileen Parag Discitis, unspecified, lumbar region Acute on chronic respiratory failure with hypoxia 56762138 (SNOMED CT) 12/17 Active 12/17 Eileen Parag Acute respiratory failure Anemia in chronic diseases(doc ument disease) D63.8 (ICD-10-CM) 12/17 Active 12/17 Eileen Parag Anemia in other chronic diseases classified elsewhere Enterococcal Sepsis 79059746187 17781 (SNOMED CT) 12/06 Resolved 12/06 Eileen Parag Sepsis caused by Enterococcus Hypocalcemia 7798020 (SNOMED CT) 12/06 Resolved 12/06 Eileen Parag Hypocalcemia Strep salivarius infection 25964684795 9109 (SNOMED CT) 12/06 Active 12/06 Eileen Parag Infection caused by Streptococcus viridans group Discitis, lumbar region M46.46 (ICD-10-CM) 12/06 Removed 12/06 Eileen Parag Discitis, unspecified, lumbar region Abscess, 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 (ICD-10-CM) 12/06 Active 12/06 Eileen Parag Intraspinal abscess and granuloma Enterococcal Sepsis [id number] 84698 (SNOMED CT) 12/06 Removed 12/06 Eileen Parag Sepsis caused by Enterococcus Hypocalcemia 1972136 (SNOMED CT) 12/06 Removed 12/06 Eileen Parag Hypocalcemia Transverse/A scending Colitis 342507322 (SNOMED CT) 12/06 Active 12/06 Eileen Parag Microscopic colitis Aneurysm of the ascending aorta, without rupture 402013099 (SNOMED CT) 12/06 Active 12/06 Eileen Parag Aneurysm of ascending aorta Nonischemic Cardiomyopat hy 30499282 (SNOMED CT) 12/06 Active 12/06 Eileen Paarg Cardiomyopathy 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 (ICD-10-CM) 12/06 Active 12/06 Eileen Parag Leukemoid reaction COPD 39567455 (SNOMED CT) 12/06 Active 12/06 Eileen Parag Chronic obstructive pulmonary disease Alkaline phosphatase, elevated 051996065 (SNOMED CT) 12/06 Active 12/06 Eileen Parag Alkaline phosphatase above reference range Paroxysmal atrial fib 592742140 (SNOMED CT) 12/06 Active 12/06 Eileen Tuttle Paroxysmal atrial flutter Benign Essential Hypertension 22432729 (SNOMED CT) 12/06 Active 12/06 Eileen Tuttle Benign hypertension Medications Medication Instructions Start Date Stop Date Generic Name NDC Provider vancomycin in 0.9 % sodium chl solution Vancomycin 1.5G IV [id number] 07/31 vancomycin in 0.9 % sodium chl solution Jyoti Pool empagliflozin (JARDIANCE) 10 mg tablet Take 1 tablet by mouth once a day 07/31 JARDIANCE Jyoti Yrn LIDOCAINE PAIN RELIEF MAX ST 4 % [facility] Place 1 patch to skin once a day 07/31 lidocaine 54348881642 Jyotitammy Alcantarales TAMSULOSIN HCL 0.4 MG CAPS Take 1 capsule by mouth once a day 07/31 tamsulosin 36136034520 Jyoti Alcantarales TYLENOL 325 MG TABS 07/31 acetaminophen 70119168161 Jyoti Alcantarales ZOSYN 4-0.5 GM/100ML SOLN 4.5gm IV Q8hrs/ [facility] 07/31 piperacillin-marlo obactam-dextrs 88056256838 Jyoti Pool TYLENOL 325 MG TABS 07/31 acetaminophen 18080719293 Tracie Pool HYDROCODONE-ACETA MINOPHEN 5-325 MG TABS hydrocodone-acet aminophen 63436965980 Tracie Pool PRESERVISION AREDS TABS vitamins a,c,z-njeq-cyspd r 25333685812 Tracie Pool PANTOPRAZOLE SODIUM 40 MG TBEC Take 1 tablet by mouth once a day pantoprazole 94967585657 Abena Allen apixaban (ELIQUIS) 5 mg Tab tablet Take 1 tablet by mouth twice a day ELIQUIS Abena November ENTRESTO 97-103 MG TABS Take 1 tablet by mouth twice a day sacubitril-valsa rtan 74930141916 Abena November TRELEGY ELLIPTA 100-62.5-25 MCG/ACT AEPB Inhale by mouth fluticasone-umec lidin-vilanter 26671733423 Abena Allen OXYCODONE HCL 15 MG TABS Take 0.5 tablet by mouth every six hours as needed oxycodone 42088903585 Abena Allen ALLOPURINOL 100 MG TABS Take 1 tablet by mouth once a day allopurinol 93835039422 Abena Allen TAMSULOSIN HCL 0.4 MG CAPS Take 1 capsule by mouth once a day 07/31 tamsulosin 52885761665 Abena Allen CARVEDILOL 12.5 MG TABS Take 1 tablet by mouth twice a day 12/16 carvedilol 10664211053 Abena Allen LEVOTHYROXINE SODIUM 150 MCG TABS Take 1 tablet by mouth every morning levothyroxine 93120031444 bAena Allen PRAVASTATIN SODIUM 40 MG TABS Take 1 tablet by mouth every night pravastatin 73990864392 Abena Allen empagliflozin (JARDIANCE) 10 mg tablet Take 1 tablet by mouth once a day 07/31 JARDIANCE Abena Allen LIDOCAINE PAIN RELIEF MAX ST 4 % [facility] Place 1 patch to skin once a day 07/31 lidocaine 33293884908 Abena Allen SPIRONOLACTONE 25 MG TABS Take 0.5 tablet by mouth once a day 12/16 spironolactone 08841182469 Abena Allen GABAPENTIN 100 MG CAPS Take 1 capsule by mouth twice a day 12/14 gabapentin 50953962794 Abena Allen TAMSULOSIN HCL 0.4 MG CAPS Take 1 capsule (0.4 mg total) by mouth daily. 03/22 tamsulosin 11545036645 QIE qieuser SPIRONOLACTONE 25 MG TABS Take 0.5 tablets (12.5 mg total) by mouth daily. 12/16 spironolactone 93533117923 QIE qieuser ENTRESTO 97-103 MG TABS Take 1 tablet by mouth 2 (two) times daily. 01/26 sacubitril-valsa rtan 97941879546 QIE qieuser PREDNISONE 10 MG TABS Take 4 tablets (40 mg total) by mouth daily for 3 days, THEN 2 tablets (20 mg total) daily for 3 days, THEN 1 tablet (10 mg total) daily for 3 days. Look-alike/Barbara nd-alike medication. 12/25 prednisone 16801670378 QIE qieuser PRAVASTATIN SODIUM 40 MG TABS Take 1 tablet (40 mg total) by mouth nightly. 01/26 pravastatin 74992550834 QIE qieuser PANTOPRAZOLE SODIUM 40 MG TBEC Take 1 tablet (40 mg total) by mouth daily. 01/26 pantoprazole 02322501291 QIE qieuser OXYCODONE HCL 15 MG TABS Take 0.5 tablets (7.5 mg total) by mouth every 6 (six) hours as needed Look-alike/Barbara nd-alike medication. Max Daily Amount: 30 mg 01/26 oxycodone 73038693691 QIE qieuser LIDOCAINE PAIN RELIEF MAX ST 4 % [facility] Place 1 patch onto the skin daily. 01/26 lidocaine 39871387530 QIE qieuser LEVOTHYROXINE SODIUM 150 MCG TABS Take 1 tablet (150 mcg total) by mouth Every morning on an empty stomach. 01/26 levothyroxine 57352784120 QIE qieuser GABAPENTIN 100 MG CAPS Take 1 capsule (100 mg total) by mouth 2 (two) times daily. Max Daily Amount: 200 mg 12/14 gabapentin 00466371373 QIE qieuser TRELEGY ELLIPTA 100-62.5-25 MCG/ACT AEPB Inhale by mouth via inhaler. 01/26 fluticasone-umec lidin-vilanter 21037067760 QIE qieuser empagliflozin (JARDIANCE) 10 mg tablet Take 1 tablet (10 mg total) by mouth daily. 01/26 JARDIANCE QIE qieuser CARVEDILOL 12.5 MG TABS Take 1 tablet (12.5 mg total) by mouth 2 (two) times daily. 12/16 carvedilol 83949413398 QIE qieuser apixaban (ELIQUIS) 5 mg Tab tablet Take 1 tablet (5 mg total) by mouth 2 (two) times daily. 01/26 ELIQUIS QIE qieuser ALLOPURINOL 100 MG TABS Take 1 tablet (100 mg total) by mouth daily. 01/26 allopurinol 56476493934 QIE qieuser ENTRESTO 97-103 MG TABS Take 1 tablet by mouth twice a day 12/22 sacubitril-valsa rtan 91438074161 Bisi Laurel LEVOTHYROXINE SODIUM 150 MCG TABS Take 1 tablet by mouth every morning 12/22 levothyroxine 47104044375 Bisi Laurel PRAVASTATIN SODIUM 40 MG TABS Take 1 tablet by mouth every night 12/22 pravastatin 46646208539 Bisi Laurel apixaban (ELIQUIS) 5 mg Tab tablet Take 1 tablet by mouth twice a day 12/22 ELIQUIS Bisi Laurel GABAPENTIN 100 MG CAPS Take 1 capsule by mouth twice a day 12/22 gabapentin 05574285175 Bisi Laurel OXYCODONE HCL 15 MG TABS Take 0.5 tablet by mouth every six hours as needed 12/22 oxycodone 45456071590 Bisi Laurel TAMSULOSIN HCL 0.4 MG CAPS Take 1 capsule by mouth once a day 12/22 tamsulosin 79659054551 Bisi Laurel ALLOPURINOL 100 MG TABS Take 1 tablet by mouth once a day 12/22 allopurinol 02498476784 Bisi Laurel BISOPROLOL FUMARATE 10 MG TABS Take 1 tablet by mouth once a day 12/22 bisoprolol fumarate 42776985130 Bisi Laurel TRELEGY ELLIPTA 100-62.5-25 MCG/ACT AEPB Inhale by mouth 12/22 fluticasone-umec lidin-vilanter 72658811563 Bisi Laurel LIDOCAINE PAIN RELIEF MAX ST 4 % [facility] Place 1 patch to skin once a day 12/22 lidocaine 00059236979 Bisi Barragan Cubicin RF 500 mg intravenous solution 500[facility]rs[facility] daptomycin 67767639227 Kellee Israel RN vancomycin in 0.9 % sodium chl solution [facility] 1.[id number] 07/31 vancomycin in 0.9 % sodium chl solution Kellee Israel RN TAMSULOSIN HCL 0.4 MG CAPS Take 1 capsule (0.4 mg total) by mouth daily. 03/22 tamsulosin 24093853933 QIE qieuser ENTRESTO 97-103 MG TABS Take 1 tablet by mouth 2 (two) times daily. 12/22 sacubitril-valsa rtan 16390355192 QIE qieuser PRAVASTATIN SODIUM 40 MG TABS Take 1 tablet (40 mg total) by mouth nightly. 12/22 pravastatin 86253938284 QIE qieuser OXYCODONE HCL 15 MG TABS Take 0.5 tablets (7.5 mg total) by mouth every 6 (six) hours as needed Look-alike/Barbara nd-alike medication. Max Daily Amount: 30 mg 12/22 oxycodone 76716624155 QIE qieuser LIDOCAINE PAIN RELIEF MAX ST 4 % [facility] Place 1 patch onto the skin daily. 12/22 lidocaine 12181913158 QIE qieuser LEVOTHYROXINE SODIUM 150 MCG TABS Take 1 tablet (150 mcg total) by mouth Every morning on an empty stomach. 12/22 levothyroxine 67461521548 QIE qieuser GABAPENTIN 100 MG CAPS Take 1 capsule (100 mg total) by mouth 2 (two) times daily. Max Daily Amount: 200 mg 12/14 gabapentin 29896013888 QIE qieuser TRELEGY ELLIPTA 100-62.5-25 MCG/ACT AEPB Inhale by mouth via inhaler. 12/22 fluticasone-umec lidin-vilanter 54186519195 QIE qieuser BISOPROLOL FUMARATE 10 MG TABS Take 1 tablet (10 mg total) by mouth daily. 12/22 bisoprolol fumarate 33671410786 QIE qieuser apixaban (ELIQUIS) 5 mg Tab tablet Take 1 tablet (5 mg total) by mouth 2 (two) times daily. 12/22 ELIQUIS QIE qieuser ALLOPURINOL 100 MG TABS Take 1 tablet (100 mg total) by mouth daily. 12/22 allopurinol 58791024600 QIE qieuser BISOPROLOL FUMARATE 10 MG TABS Take 1 tablet by mouth once a day 12/15 bisoprolol fumarate 99829116769 Abena Allen TRELEGY ELLIPTA 100-62.5-25 MCG/ACT AEPB Inhale by mouth 12/15 fluticasone-umec lidin-vilanter 83369618153 Abena Allen ENTRESTO 97-103 MG TABS Take 1 tablet by mouth twice a day 12/15 sacubitril-valsa rtan 80022825797 Abena Allen ALLOPURINOL 100 MG TABS Take 1 tablet by mouth once a day 12/15 allopurinol 21503802680 Abena Allen LEVOTHYROXINE SODIUM 100 MCG TABS Take 1 tablet by mouth every morning 12/15 levothyroxine 14758865264 Abena Allen PRAVASTATIN SODIUM 40 MG TABS Take 1 tablet by mouth once a day 12/15 pravastatin 15088084392 Abena Allen apixaban (ELIQUIS) 5 mg Tab tablet Take 1 tablet by mouth twice a day 12/15 ELIQUIS Abena Allen piperacillin-tazo bactam (ZOSYN) MBP 4.5 g in 100 mL NS Inject 4.5 intravenously every eight hours 12/15 ZOSYN Abena Allen TAMSULOSIN HCL 0.4 MG CAPS Take 1 capsule by mouth once a day 12/15 tamsulosin 09383330717 Abena Allen DAPTOMYCIN 500 MG SOLR Inject 50 ml intravenously once a day 12/15 daptomycin 67028682713 Abena Allen TAMSULOSIN HCL 0.4 MG CAPS Take 1 capsule (0.4 mg total) by mouth daily. 03/22 tamsulosin 03577650363 QIE qieuser ENTRESTO 97-103 MG TABS Take 1 tablet by mouth 2 (two) times daily. 12/15 sacubitril-valsa rtan 06823411642 QIE qieuser PRAVASTATIN SODIUM 40 MG TABS Take 1 tablet (40 mg total) by mouth daily. 12/15 pravastatin 52462345223 QIE qieuser piperacillin-tazo bactam (ZOSYN) MBP 4.5 g in 100 mL NS Inject 4.5 g intravenously every 8 (eight) hours for 24 days Through 12/20/23. 12/18 ZOSYN QIE qieuser OXYCODONE HCL 10 MG TABS Take 1 tablet (10 mg total) by mouth every 4 (four) hours as needed for up to 10 days Look-alike/Barbara nd-alike medication. Max Daily Amount: 60 mg 12/04 oxycodone 92875993775 QIE qieuser LEVOTHYROXINE SODIUM 100 MCG TABS Take 1 tablet (100 mcg total) by mouth Every morning on an empty stomach. 12/15 levothyroxine 62378468702 QIE qieuser TRELEGY ELLIPTA 100-62.5-25 MCG/ACT AEPB Inhale by mouth via inhaler. 12/15 fluticasone-umec lidin-vilanter 13951812682 QIE qieuser DAPTOMYCIN 500 MG SOLR Inject 50 mLs (500 mg total) intravenously daily for 24 days Through 12/20/23. 12/18 daptomycin 87047231075 QIE qieuser BISOPROLOL FUMARATE 10 MG TABS Take 1 tablet (10 mg total) by mouth daily. 12/15 bisoprolol fumarate 21340718423 QIE qieuser apixaban (ELIQUIS) 5 mg Tab tablet Take 1 tablet (5 mg total) by mouth 2 (two) times daily. 12/15 ELIQUIS QIE qieuser ALLOPURINOL 100 MG TABS Take 1 tablet (100 mg total) by mouth daily. 12/15 allopurinol 93038254836 QIE qieuser ACETAMINOPHEN 500 MG TABS Take 2 tablets (1,000 mg total) by mouth every 6 (six) hours as needed for Pain for up to 10 days. 12/04 acetaminophen 97065373479 QIE qieuser Cubicin RF 500 mg intravenous solution 500mg IV Q24hrs/ [facility] 12/21 daptomycin 47705891892 Edel Nguyen RN ZOSYN 4-0.5 GM/100ML SOLN 4.5gm IV Q8hrs/ [facility] 07/31 piperacillin-marlo obactam-dextrs 72434934199 Edel Nguyen RN Medications Administered No information available. Allergies, Adverse Reactions, Alerts No information available. Results Date Name Value Unit Range Flag Description Chart Maintenance CPK 45 U/L Creatine louis se [Enzymatic activity/volume] in Serum or Plasma VANCOMY CHAL 7.7 ug/mL vancomyc in level, serum, trough Lab Report: CBC WITH AUTO DI FFERENTIAL MONOCYTE % 7.5 % 5.0-12.0 Monocytes /100 leukocytes in Blood by Automated count LYMPHOCY BF 30.2 % 19.6-45.3 lymphoc ytes as percent of body fluid leukocytes RDW_ 14.1 12.3-15.4 RDW, no uni ts Lab Report: COMPREHENSIVE ME TABOLIC PANEL ANIONGAP 12.0 mmol/L 5.0-15.0 anion gap, serum BUN/CREAT 19.6 7.0-25.0 Urea nitrogen/Creatinine [Mass Ratio] in Serum or Plasma BILI TOTAL 0.4 mg/dL 0.0-1.2 Bilirubin. total [Mass/volume] in Serum or Plasma ALK PHOS 220 U/L 39-117 H Alkaline john sphatase [Enzymatic activity/volume] in Blood SGOT (AST) 46 U/L 1-40 H Aspartate aminotransferase [Enzymatic activity/volume] in Serum or Plasma SGPT (ALT) 43 U/L 1-41 H Alanine aminotransferase [Enzymatic activity/volume] in Serum or Plasma ALBUMIN 3.8 g/dL 3.5-5.2 Albumin [Mass/volume] in Serum or Plasma PROTEIN, TOT 6.5 g/dL 6.0-8.5 Protein [Mass/volume] in Serum or Plasma CALCIUM 9.6 mg/dL 8.6-10.5 Calcium [Moles/volume] in Serum or Plasma CO2 26.0 mmol/L 22.0-29.0 Carbon diox clive, total [Moles/volume] in Venous blood CHLORIDE 103 mmol/L 98-107 Chloride [Moles/volume] in Serum or Plasma POTASSIUM 4.2 mmol/L 3.5-5.2 Potassium [Moles/volume] in Serum or Plasma SODIUM 141 mmol/L 136-145 Sodium [Moles/volume] in Serum or Plasma CREATININE 1.02 mg/dL 0.76-1.27 Creatini ne [Mass/volume] in Serum or Plasma BUN 20 mg/dL 8-23 Urea nitrogen [Mass/volume] in Serum or Plasma GLUCOSE SER 141 mg/dL 65-99 H Glucose [Mass/volume] in Serum or Plasma Office Visit: Office Visit: 2 FALLRSKASSES yes Fall ris k assessment Office Visit: Office Visit: room 6 SMOK STATUS Former smoker Tobacco smoking status MEDS REVIEW Done Documenta tion of current medications (procedure) Lab Report: CBC WITH AUTO DI FFERENTIAL [id number] 0.0 /100 WBC 0.0-0.2 GE use only - fo r [employer] import when terms are not otherwise specified IMMATUREGRAN 0.06 10*3/MM3 0.00-0.05 H Immature granulocytes [#/volume] in Blood BASO# 0.05 10*3/mm3 0.00-0.20 Basophils [#/vol ume] in Blood EOS ABSLT 0.20 10*3/uL 0.00-0.40 Eosinophi ls [#/volume] in Blood MONOSCT AUTO 0.84 10*3/uL 0.10-0.90 Monocy barrett [#/volume] in Blood by Automated count LYMPHCT AUTO 2.71 10*3/mm3 0.70-3.10 Lymph ocytes [#/volume] in Blood by Automated count ABS NEUTROPH 4.94 10*3/uL 1.70-7.00 Neutro phils [#/volume] in Blood IMM GRANU % 0.7 % 0.0-0.5 H Immature granulocytes/100 leukocytes in Blood % EOS AUTO 2.3 % 0.3-6.2 Eosinophil s/100 leukocytes in Blood by Automated count MONOCYTE BF 9.5 % 5.0-12.0 monocyte s as percent of body fluid leukocytes LYMPHS % 30.8 % 19.6-45.3 Lymphocyte s/100 leukocytes in Blood by Automated count NEUTROP BF 56.1 % 42.7-76.0 Neutroph ils/100 leukocytes in Body fluid PLATELETS 152 10*3/mm3 140-450 Platelets [#/volume] in Blood by Automated count RDW 14.1 % 12.3-15.4 Erythrocyte distribution width [Ratio] by Automated count MCHC 31.6 G/DL 31.5-35.7 MCHC [Mass/ volume] by Automated count MCH 29.0 pg 26.6-33.0 MCH [Entiti c mass] by Automated count MCV 91.7 fL 79.0-97.0 MCV [Entiti c volume] by Automated count HCT 41.1 % 37.5-51.0 Hematocrit [Volume Fraction] of Blood by Automated count HGB 13.0 g/dL 13.0-17.7 Hemoglobin [Mass/volume] in Blood RBC 4.48 10*6/mm3 4.14-5.80 Erythrocyt es [#/volume] in Blood by Automated count WBC 8.80 10*3/mm3 3.40-10.8 0 Leukocytes [#/volume] in Blood by Automated count Lab Report: C-REACTIVE PROTE IN CRP <0.30 mg/dL 0.00-0.50 C reactive protein [Mass/volume] in Serum or Plasma Plan of Care Type Date Detail Pending order CBC with Differe ntial Pending order C- reactive prot ein Pending order CBC with Differe ntial Pending order C- reactive prot ein Pending order Continue oral an tibiotics Pending order CBC with Differe ntial Pending order C- reactive prot ein Pending order CBC with Differe ntial Pending order C- reactive prot ein Pending order Continue oral an tibiotics Pending order CMP Pending order CBC with Differe ntial Pending order C- reactive prot ein Pending order Continue oral an tibiotics Pending order CMP Pending order CBC with Differe ntial Pending order C- reactive prot ein Pending order CMP Pending order CBC with Differe ntial Pending order C- reactive prot ein Pending order CMP Pending order CMP Pending order CBC with Differe ntial Pending order C- reactive prot ein Pending order New Oral Antibio tic Pending order CMP Pending order CBC with Differe ntial Pending order C- reactive prot ein Pending order PICC Removal Pending order Discontinue IV a ntibiotics Pending order New Oral Antibio tic Pending order CMP Pending order CBC with Differe ntial Pending order C- reactive prot ein Procedures Code Procedure Name Date Entry Date CPT-Cooral Continue oral antibiotics 05/04/10 CPT-17048 CMP [id number] CBC with Differential 2023 CPT-08736 C- reactive protein CPT-larissa New Oral Antibiotic CPT-93242 CMP [id number] CBC with Differential 2023 CPT-05927 C- reactive protein CPT-PICREM PICC Removal CPT-DC Discontinue IV antibiotics 2 CPT-larissa New Oral Antibiotic CPT-96046 CMP [id number] CBC with Differential 2023 CPT-85930 C- reactive protein Vital Signs Date Name Value Unit Description BMI (Body Mass Index) 24.28 kg/m2 Bod y Mass Index (Ratio) Body Temperature 97.8 [degF] temperat ure E&M BP Diastolic 62 mm[Hg] blood pressu re, diastolic BP Systolic 126 mm[Hg] blood pressur e, systolic Heart Rate 72 /min pulse rate Height 70 [in_us] height E&M Respiratory Rate 16 /min respirat ory rate E&M Weight Measured 169.2 [lb_av] weight E& M Weight Measured 169.2 [lb_av] weight E& M Immunizations No information available. Advance Directives Directive Description Start Date NO ADVANCED DIRECTIVES ESTABLISHED AT IS TIME
--- OUTSIDE RECORDS SUMMARY | 2024-12-21 07:31 | XMS_ITS | Data Portability ---
Author Organization [facility] & [place] [facility] Address [address] [place] [phone] Assessment No assessment recorded. Plan of Treatment Reminders Order Date Submit Date Provider Last Modified By Organization Details Last Modified Time Details Appointments FOLLOW UP 30 2024 02:30P M CHRISTEN NOONAN MD Not available Not available Not available OV EST 15 2025 01:30P M Jose Ramos Jr, MD Not available Not available Not available Lab None recorded. Referral None recorded. Procedures bladder scan (PROC) 2023 024 [email or web address] [address], [address], 06/10/2024 12:59:17 bladder scan (PROC) 2022 023 [email or web address] [address], [address], 11/05/2022 14:43:33 Surgeries None recorded. Imaging CT, abdomen, w/wo contrast 2023 024 [email or web address] [facility] (Scheduling), [address], [place], [address], 06/24/2024 07:16:03 CT, abdomen, w/wo contrast 2022 023 [email or web address] [facility] (Scheduling), [address], [place], [address], 01/07/2023 08:12:04 Medication Orders tamsulosi n 0.4 mg capsule 2022 023 [email or web address] [facility], [address], [place], [address], 11/10/2022 17:24:51 Patient TargetsNo targets recorded. Patient InstructionsNo instructions recorded. Reason for Referral None Reported. Results Created Date Observation Date Name Description Value Unit Range Abnormal Flag Note LastModifiedBy Organization Detail LastModifiedTime 11/06/1911/05/2022 bladd er scan (PROC ) Calculated Residual Urine: 133ml Not Available [facility] [address], [address], 11/05/2022 14:12:10 06/08/20 24 06/08/2024 bladd er scan (PROC ) Calculated Residual Urine: 92 ml Not Available [address], [address], 06/08/2024 11:10:11 06/30/20 24 06/30/2024 imagi ng/di agnos tic resul t No observ ation record ed. [facility] [address], [place], [address], 06/30/2024 13:31:16 09/06/19 25 08/09/2024 imagi ng/di agnos tic resul t No observ ation record ed. [facility] (Med Record) [address], [place], [address], 09/07/2024 16:14:14 Result Notes None recorded. Problems Name Problem SNOMED Code Status Onset Date Resolution Date Notes Provider Name and Address Organization Details Recorded Time Hypertensive disorder 37708216 Active 2022 RAD[place] - [place] & [place] 3 13:14:27 Irregular heart beat 186810224 Active 2022 RADHA [place] - [place] & [place] 3 13:14:33 Cardiac pacemaker in situ 029639124 Active 2022 RADHA Leigh [facility] & [place] 3 13:14:42 Chronic obstructive pulmonary disease 05547930 Active 2022 RADHA Leigh [facility] & [place] 3 13:14:48 Problem Notes None recorded. Procedures Surgical History Date Name Laterality Status Provider Name and Address Organization Details Recorded Time Heart Surgery completed Laci HONEYCUTT [facility] & [place] 11/05/2022 13:16:05 Imaging Results None recorded. Procedure Notes None recorded. Medical Equipment None Reported. Medications Name Sig Start Date Stop Date Status Note LastModified by Organization Details LastModified Time amoxicillin 500 mg capsule TAKE 2 CAPSULES BY MOUTH EVERY 12 HOURS FOR 10 DAYS 06/08 completed Not Available Not Available Not Available methocarbam ol 500 mg tablet TAKE 1 TABLET BY MOUTH EVERY 12 HOURS NEEDED FOR MUSCLE SPASM active Not Available Not Available No t Available levothyroxi ne 175 mcg tablet active Not Available Not Available Not Available lidocaine HCl 10 mg/mL (1 %) injection solution active Not Available Not Available Not Available prednisone 10 mg tablet TAKE 1 TABLET BY MOUTH TWICE DAILY FOR 7 DAYS active Not Available Not Available No t Available doxycycline hyclate 100 mg capsule TAKE 1 CAPSULE BY MOUTH TWICE DAILY FOR 14 DAYS active Not Available Not Available No t Available pravastatin 40 mg tablet TAKE 1 TABLET BY MOUTH EVERY DAY AT BEDTIME FOR CHOLESTER OL active Not Available Not Available No t Available amiodarone 200 mg tablet TAKE 2 TABLETS BY MOUTH TWICE DAILY FOR 30 DAYS active Not Available Not Available No t Available hydrocodone 5 mg-acetamin ophen 325 mg tablet TAKE 1 TABLET BY MOUTH EVERY 8 HOURS NEEDED FOR PAIN FOR 7 DAYS active Not Available Not Available No t Available prednisone 20 mg tablet TAKE 1 TABLET BY MOUTH TWICE DAILY FOR 7 DAYS active Not Available Not Available No t Available dexamethaso ne 6 mg tablet active Not Available Not Available Not Available cyanocobala min (vit B-12) 1,000 mcg tablet TAKE 1 TABLET BY MOUTH ONCE DAILY FOR 90 DAYS active Not Available Not Available No t Available ciprofloxac in 250 mg tablet active Not Available Not Available Not Available ciprofloxac in 500 mg tablet active Not Available Not Available Not Available spironolact one 25 mg tablet active Not Available Not Available Not Available carvedilol 3.125 mg tablet active Not Available Not Available Not Available bisoprolol fumarate 10 mg tablet TAKE 1 TABLET BY MOUTH ONCE DAILY FOR HEART RATE active Not Available Not Available No t Available warfarin 3 mg tablet TAKE 1 TABLET BY MOUTH ONCE DAILY OR DIRECTED active Not Available Not Available No t Available bisoprolol fumarate 5 mg tablet TAKE 1 TABLET BY MOUTH ONCE DAILY active Not Available Not Available No t Available levothyroxi ne 100 mcg tablet TAKE 1 TABLET BY MOUTH ONCE DAILY active Not Available Not Available No t Available ceftriaxone 1 gram solution for injection active Not Available Not Available No t Available tamsulosin 0.4 mg capsule TAKE 1 CAPSULE EVERY DAY active Not Available Not Available No t Available pantoprazol e 40 mg tablet,donna yed release active Not Available Not Available Not Available prednisone 50 mg tablet TAKE 1 TABLET BY MOUTH ONCE DAILY FOR 7 DAYS active Not Available Not Available No t Available warfarin 2 mg tablet active Not Available Not Available No t Available allopurinol 300 mg tablet TAKE 1 TABLET BY MOUTH ONCE DAILY active Not Available Not Available No t Available furosemide 20 mg tablet TAKE 1 TABLET BY MOUTH ONCE DAILY FOR 30 DAYS active Not Available Not Available No t Available gabapentin 100 mg capsule active Not Available Not Available Not Available colchicine 0.6 mg tablet active Not Available Not Available Not Available doxycycline hyclate 100 mg tablet active Not Available Not Available No t Available amoxicillin 500 mg-potassiu m clavulanate 125 mg tablet 06/08 completed Not Available Not Available Not Available lactulose 10 gram/15 mL oral solution active Not Available Not Available Not Available lidocaine (PF) 10 mg/mL (1 %) injection solution active Not Available Not Available Not Available DOK 100 mg tablet active Not Available Not Available Not Available Eliquis 5 mg tablet active Not Available Not Available No t Available Jardiance 10 mg tablet active Not Available Not Available Not Available Spiriva Respimat 2.5 mcg/actuati on solution for inhalation active Not Available Not Available N ot Available Entresto 97 mg-103 mg tablet TAKE 1 TABLET BY MOUTH TWICE DAILY active Not Available Not Available No t Available Entresto 24 mg-26 mg tablet active Not Available Not Available Not Available Trelegy Ellipta 100 mcg-62.5 mcg-25 mcg powder for inhalation INHALE 1 PUFF BY MOUTH ONCE DAILY active Not Available Not Available No t Available Vitals Date Recorded Body height Body mass index (BMI) Body weight Body temperature Provider Name and Address Organization Details Last Updated DateTime 12/24/2022 177.8 cm 25.8 kg/m2 20358.63 g 97.7 [degF] Sandrita Rodriguez [place] - [facility] & [place] 12/24/2022 11:04:35 Date Recorded Body height Body mass index (BMI) Body weight Body temperature Provider Name and Address Organization Details Last Updated DateTime 06/08/2024 177.8 cm 25.8 kg/m2 78246.63 g 97.5 [degF] [facility] [place] [facility] [place] 06/08/2024 10:40:53 Social History None recorded. Functional Status Question Answer Note LastModified by Organization D etails LastModified Time What is your level of alcohol consumption? None [email or web address] Information not available 11/05/2022 Mental Status None recorded. Family History Relationship Description Onset Age of this Age Resolved Age Notes LastModified by Organization Details LastModified Time Mother Cerebrovascu lar accident dec [email or web address] Not available 13:15:11 Father Aneurysm of cerebral artery dec [email or web address] Not available 2022 13:15:28 Brother Pneumonia dec [email or web address] Not availa ble 11/05/2022 13:15:42 Sister Heart disease dec [email or web address] Not available 2022 13:15:52 Medical History No medical history recorded. Past Encounters Encounter ID Performer Location Encounter Start Date Encounter Closed Date Diagnosis/Indication Diagnosis SNOMED-CT Code Diagnosis ICD10 Code Diagnosis Note [id number] Jose Ramos Jr, MD [facility] [address] [address] 11/05/2022 12:34:06 11/05/2022 14:13:30 Lower urinary tract symptoms due to benign prostatic hypertrophy [id number] 9101 N40.1 patient with lower urinary tract symptoms. His prostate is enlarged and his bladder scan indicates a residual of 133 [address] going to place him on a course of tamsulosin and will follow-up in 1 month. Renal mass 874628148 N28 .[address] scan shows a 2.2 cm left renal mass. We discussed treatment options regarding small renal masses. We discussed close monitoring versus surgical options of partial nephrectom y. Due to his age and other medical problems I think that close monitoring is suitable. We will repeat a CT scan in 6 months as follow-up. [id number] [facility] [address] [address] 12/24/2022 10:09:04 12/24/2022 11:26:13 Renal mass 429014811 N28.[address] scan shows a 2.2 cm left renal mass. We discussed treatment options regarding small renal masses. We discussed close monitoring versus surgical options of partial nephrectom y. Due to his age and other medical problems I think that close monitoring is suitable. We will repeat a CT scan in 6 months as follow-up. Lower urin brandon tract symptoms due to benign prostatic hypertrophy 1619364000 9101 N40.1 patient with history of lower urinary tract symptoms secondary to BPH. He was placed on tamsulosin in his last visit in his symptoms are much improved. His bladder scan is improved and 96 cc. Patient is happy in his to continue the medication . [id number] Jose [facility] Jr, MD [facility] [address] [address] 06/08/2024 10:35:39 06/08/2024 11:17:34 Renal mass 077676047 N28.[address] scan shows a 2.2 cm left renal mass. We discussed treatment options regarding small renal masses. We discussed close monitoring versus surgical options of partial nephrectom y. Due to his age and other medical problems I think that close monitoring is suitable. We will repeat a CT scan and f/u for discussion of results. Nocturia d ue to benign prostatic hypertrophy 4865085524 101 R35.1 Pt with nocturia 4-5x. He is on Tamsulosin and bladder scan 92 cc which is same as it was in 12/2022. We discussed habits and caffeine cessation (tea) to be avoided and fluid restrictio n 2-3 hrs prior to bed. Continue Tamsulosin . Health Concerns Section Related Observation LastModified by Organization Detai ls LastModified Time None Recorded Concern Status LastModified by Organization Details LastModified Time None Recorded Advance Directives Directive None Recorded Payers Insurance Date Sequence Insurance Name Policy Number Policy Florentino Covered Member ID Florentino Member ID Guarantor Name 07/22/2024 1 [employer] (MEDICARE REPLACEMENT/ ADVANTAGE - HMO) Iasc Hudson [id number] Isac Hudson 11/02/2024 2 MEDICAID-[facility] - FFS/TRADITIO NAL Isac Hudson [id number] Isac Hudson 11/02/2024 1 MED[place]ARE[place]ARE[place] Isac Hudson [id number] Isac Hudson Notes Date Note Type Note Provider Name and Address Organization Details Recorded Time 11/05/2022 text/html patient is an 82-year-old white male referred from his tower attendant for new finding of a 2.2 cm left renal mass. CT scan with and without IV contrast on October 02 showed apparent contrast enhancement in the mass arising from the posterior left kidney. Pre contrast was 29 Hounsfield units and postcontrast was 54 Hounsfield units. There is also an exophytic focus arising from the superior right kidney without any contrast enhancement.Patien t also complains of lower urinary tract symptoms of urgency and nocturia 2-3 times. Bladder scan today indicates he is not emptying out well with a 133 cc residual. Jose Ramos Jr, MD [address] [place] [address], [address], [place], [address], [facility] 11/10/2022 17:29:02 12/24/2022 text/html Patient is an 82-year-old white male with history a 2.2 cm enhancing left renal mass. We have discussed treatment options and we are following with watchful waiting.Patient returns today because of some lower urinary tract symptoms of urgency and nocturia. Previous bladder scan indicated a residual of 133 cc. He was placed on tamsulosin at his last visit 6 weeks ago and states significant improvement in his urinary symptoms. He is much happier on the medication. His bladder scan was repeated today and is improved at 96 cc. Jose Ramos Jr, MD [address], [address], [place], [address], [facility] & [place] 12/24/2022 13:45:01 06/08/2024 text/html 84 yo male with h/o BPH and 2.2 cm enhancing L renal mass returns today for c/o nocturia. He was last seen here on 12/2022. He states he gets up 4-5x and daytime frequency every hour. He is on Tamsulosin. Bladder scan 92 cc. He drinks tea during day. Cr is 1.1.He now is in [place] due to other medical problems. Jose Ramos Jr, MD [address] [place] [address], [address], [place], [address], [facility] - [facility] - [place] & [place] 06/10/2024 09:21:38
--- NOTE | 2024-12-21 08:00 | CT_ITS ---
FINAL REPORT TECHNIQUE: Routine axial images were obtained from the lung apices to below the diaphragm following IV contrast administration. Individualized dose reduction techniques using automated exposure control or adjustment of the mA and/or kV according to the patient size were employed. CLINICAL HISTORY: Lung Cancer COMPARISON: 08/09/2024 FINDINGS: CT CHEST WITH CONTRAST: A 4.9 cm ascending aortic aneurysm is present, also seen on the prior CT of 08/09/2024 and stable since that time. A left-sided pacemaker is present as well. No mediastinal, hilar, or axillary adenopathy is present. No focal pulmonary mass is noted. There are advanced changes of centrilobular emphysema, with scar present in the right lung apex. There is a small nodule in the anterior left upper lobe measuring 5 mm in size, stable since the prior exam. Mild scarring is present in the lung bases. In the portions of the upper abdomen visualized, there are bilateral exophytic foci that likely represents renal cysts, stable since the prior exam. IMPRESSION: 4.9 cm ascending aortic aneurysm, stable. Advanced changes of centrilobular emphysema. Small nodule in the anterior left upper lobe, measuring 5 mm in size, stable. Reviewed, Interpreted and Dictated by Marcos Hannon MD Transcribed by Gladis Bess Authenticated and [facility]
[2024-12-21 08:25] LABS: Blood Urea Nitrogen 33 mg/dl (9-20); Estimated Glomerular Filt Rate 64 ml/min (>60); GFR (African American) 77 ML/MIN (>60)
[2024-12-21] MEDS: IOPAMIDOL-370 (76%);100ML BOTTLE 75 ML IV (09:00)
[2024-12-21] MEDS: SODIUM CHLORIDE 0.9% 10ML SYR (RAD ONLY) 10 ML IV (09:00)
== END 2024-12-21 23:59 | disposition home or self-care (01) ==
LOC: RAD 07:29
PROVIDERS: PCP Family Medicine; Visit Provider Internal Medicine Medical Oncology
DX: C34.31 Malignant neoplasm of lower lobe, right bronchus or lung (principal); I71.21 Aneurysm of the ascending aorta, without rupture; J43.2 Centrilobular emphysema; R91.1 Solitary pulmonary nodule
CPT/HCPCS: 36415; 71260; 82565; 84520; Q9967

== ENCOUNTER 2025-04-25 13:35 | Outpatient (CLI) | payer MEDICARE, MEDICAID, SELFPAY ==
--- OUTSIDE RECORDS SUMMARY | 2025-04-25 13:38 | XMS_ITS | Encounter Summary ---
Author Organization Healthcare Address [address] [place] [address] Care Team Providers Care Bobtail Driver Name Role Phone Johnnie Lincoln MD Primary Care Provider [phone] Dany Reyes MD Unavailable [phone] Encounter Details Date Type Department Care Team (Late st Contact Info) Description 10/14/2023 Orders Only External Location [address] [place] [address] Provider, External Social History Tobacco Use Types [...] documented as of this encounter Care Teams Bobtail Driver Relationship Specialty Start Date End Date Johnnie Lincoln MD [address] [place] [address] PCP - General 11/23/20 Dany Reyes MD [facility] [address] [address] Referring Physician 02/07/21 documented as of this encounter
--- OUTSIDE RECORDS SUMMARY | 2025-04-25 13:38 | XMS_ITS | Clinical Summary ---
Author Organization [facility] Address [address] [place] [address] Phone Care Team Providers Care Business Office Representative Name Role Phone Felix DONIS, Jose Thayer Unavailable [ ] Conditions or Problems Problem Name Problem Code Onset Date Status Entry Date Provider Comment Standard Description Annotate Fall risk 837679179 (SNOMED CT) Active Jose Washington MD At increased risk for falls Osteomyeliti s of vertebra, lumbosacral region M46.27 (ICD-10-CM) 12/17 Active 12/17 Eileen Parag Osteomyelitis of vertebra, lumbosacral region Osteomyeliti s of vertebra, lumbar region M46.26 (ICD-10-CM) 12/17 Active 12/17 Eileen Parag Osteomyelitis of vertebra, lumbar region Pulmonary infiltrates 431607291 (SNOMED CT) 12/17 Active 12/17 Eileen Parag Asthmatic pulmonary eosinophilia Lumbar region, infected discitis (pyogenic) (document infectious agent) M46.36 (ICD-10-CM) 12/17 Active 12/17 Eileen Parag Infection of intervertebral disc (pyogenic), lumbar region Discitis, lumbar region M46.46 (ICD-10-CM) 12/06 Resolved 12/06 Eileen Parag Discitis, unspecified, lumbar region Acute on chronic respiratory failure with hypoxia 44642380 (SNOMED CT) 12/17 Active 12/17 Eileen Parag Acute respiratory failure Anemia in chronic diseases(doc ument disease) D63.8 (ICD-10-CM) 12/17 Active 12/17 Eileen Parag Anemia in other chronic diseases classified elsewhere Enterococcal Sepsis 95862493630 80603 (SNOMED CT) 12/06 Resolved 12/06 Eileen Parag Sepsis caused by Enterococcus Hypocalcemia 5495886 (SNOMED CT) 12/06 Resolved 12/06 Eileen Parag Hypocalcemia Strep salivarius infection 30185928014 9109 (SNOMED CT) 12/06 Active 12/06 Eileen Parag Infection caused by Streptococcus viridans group Discitis, lumbar region M46.46 (ICD-10-CM) 12/06 Removed 12/06 Eileen Parag Discitis, unspecified, lumbar region Abscess, 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 (ICD-10-CM) 12/06 Active 12/06 Eileen Parag Intraspinal abscess and granuloma Enterococcal Sepsis 33318253960 56656 (SNOMED CT) 12/06 Removed 12/06 Eileen Parag Sepsis caused by Enterococcus Hypocalcemia 0264224 (SNOMED CT) 12/06 Removed 12/06 Eileen Parag Hypocalcemia Transverse/A scending Colitis 906640067 (SNOMED CT) 12/06 Active 12/06 Eileen Parag Microscopic colitis Aneurysm of the ascending aorta, without rupture 838311721 (SNOMED CT) 12/06 Active 12/06 Eileen Parag Aneurysm of ascending aorta Nonischemic Cardiomyopat hy 42249311 (SNOMED CT) 12/06 Active 12/06 Eileen Parag Cardiomyopathy 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 (ICD-10-CM) 12/06 Active 12/06 Eileen Parag Leukemoid reaction COPD 93799519 (SNOMED CT) 12/06 Active 12/06 Eileen Parag Chronic obstructive pulmonary disease Alkaline phosphatase, elevated 783456489 (SNOMED CT) 12/06 Active 12/06 Eileen Parag Alkaline phosphatase above reference range Paroxysmal atrial fib 384654743 (SNOMED CT) 12/06 Active 12/06 Eileen Tuttle Paroxysmal atrial flutter Benign Essential Hypertension 04165931 (SNOMED CT) 12/06 Active 12/06 Eileen Tuttle Benign hypertension Medications Medication Instructions Start Date Stop Date Generic Name NDC Provider vancomycin in 0.9 % sodium chl solution Vancomycin 1.5G IV [id number] [facility] 07/31 vancomycin in 0.9 % sodium chl solution Jyoti Pool empagliflozin (JARDIANCE) 10 mg tablet Take 1 tablet by mouth once a day 07/31 JARDIANCE Jyoti Yrn LIDOCAINE PAIN RELIEF MAX ST 4 % [facility] Place 1 patch to skin once a day 07/31 lidocaine 32077209559 Jyotitammy Alcantarales TAMSULOSIN HCL 0.4 MG CAPS Take 1 capsule by mouth once a day 07/31 tamsulosin 96342914875 Jyoti Alcantarales TYLENOL 325 MG TABS 07/31 acetaminophen 95676364424 Jyoti Alcantarales ZOSYN 4-0.5 GM/100ML SOLN 4.5gm IV Q8hrs/ [facility] 07/31 piperacillin-marlo obactam-dextrs 75112245418 Jyoti Pool TYLENOL 325 MG TABS 07/31 acetaminophen 40714390720 Tracie Pool HYDROCODONE-ACETA MINOPHEN 5-325 MG TABS hydrocodone-acet aminophen 25822327679 Tracie Pool PRESERVISION AREDS TABS vitamins a,c,f-nloq-xrzgn r 94473606181 Tracie Pool PANTOPRAZOLE SODIUM 40 MG TBEC Take 1 tablet by mouth once a day pantoprazole 88438109969 Abena Allen apixaban (ELIQUIS) 5 mg Tab tablet Take 1 tablet by mouth twice a day ELIQUIS Abena November ENTRESTO 97-103 MG TABS Take 1 tablet by mouth twice a day sacubitril-valsa rtan 75395277667 Abena November TRELEGY ELLIPTA 100-62.5-25 MCG/ACT AEPB Inhale by mouth fluticasone-umec lidin-vilanter 96490333532 Abena Allen OXYCODONE HCL 15 MG TABS Take 0.5 tablet by mouth every six hours as needed oxycodone 28737237122 Abena Allen ALLOPURINOL 100 MG TABS Take 1 tablet by mouth once a day allopurinol 07803999606 Abena Allen TAMSULOSIN HCL 0.4 MG CAPS Take 1 capsule by mouth once a day 07/31 tamsulosin 30527984205 Abena Allen CARVEDILOL 12.5 MG TABS Take 1 tablet by mouth twice a day 12/16 carvedilol 37451458484 Abena Allen LEVOTHYROXINE SODIUM 150 MCG TABS Take 1 tablet by mouth every morning levothyroxine 40752342620 Abena Allen PRAVASTATIN SODIUM 40 MG TABS Take 1 tablet by mouth every night pravastatin 50956595123 Abena Allen empagliflozin (JARDIANCE) 10 mg tablet Take 1 tablet by mouth once a day 07/31 JARDIANCE Abena Allen LIDOCAINE PAIN RELIEF MAX ST 4 % [facility] Place 1 patch to skin once a day 07/31 lidocaine 49002135073 Abena Allen SPIRONOLACTONE 25 MG TABS Take 0.5 tablet by mouth once a day 12/16 spironolactone 66690023181 Abena Allen GABAPENTIN 100 MG CAPS Take 1 capsule by mouth twice a day 12/14 gabapentin 85487961674 Abena Allen TAMSULOSIN HCL 0.4 MG CAPS Take 1 capsule (0.4 mg total) by mouth daily. 03/22 tamsulosin 12909378289 QIE qieuser SPIRONOLACTONE 25 MG TABS Take 0.5 tablets (12.5 mg total) by mouth daily. 12/16 spironolactone 82910494696 QIE qieuser ENTRESTO 97-103 MG TABS Take 1 tablet by mouth 2 (two) times daily. 01/26 sacubitril-valsa rtan 38471063345 QIE qieuser PREDNISONE 10 MG TABS Take 4 tablets (40 mg total) by mouth daily for 3 days, THEN 2 tablets (20 mg total) daily for 3 days, THEN 1 tablet (10 mg total) daily for 3 days. Look-alike/Barbara nd-alike medication. 12/25 prednisone 59095093959 QIE qieuser PRAVASTATIN SODIUM 40 MG TABS Take 1 tablet (40 mg total) by mouth nightly. 03/17 pravastatin 45889851273 QIE qieuser PANTOPRAZOLE SODIUM 40 MG TBEC Take 1 tablet (40 mg total) by mouth daily. 01/26 pantoprazole 46802840246 QIE qieuser OXYCODONE HCL 15 MG TABS Take 0.5 tablets (7.5 mg total) by mouth every 6 (six) hours as needed Look-alike/Barbara nd-alike medication. Max Daily Amount: 30 mg 01/26 oxycodone 08916611011 QIE qieuser LIDOCAINE PAIN RELIEF MAX ST 4 % [facility] Place 1 patch onto the skin daily. 01/26 lidocaine 97887064155 QIE qieuser LEVOTHYROXINE SODIUM 150 MCG TABS Take 1 tablet (150 mcg total) by mouth Every morning on an empty stomach. 01/26 levothyroxine 17354755871 QIE qieuser GABAPENTIN 100 MG CAPS Take 1 capsule (100 mg total) by mouth 2 (two) times daily. Max Daily Amount: 200 mg 12/14 gabapentin 17503536976 QIE qieuser TRELEGY ELLIPTA 100-62.5-25 MCG/ACT AEPB Inhale by mouth via inhaler. 01/26 fluticasone-umec lidin-vilanter 84298518932 QIE qieuser empagliflozin (JARDIANCE) 10 mg tablet Take 1 tablet (10 mg total) by mouth daily. 01/26 JARDIANCE QIE qieuser CARVEDILOL 12.5 MG TABS Take 1 tablet (12.5 mg total) by mouth 2 (two) times daily. 12/16 carvedilol 03932694784 QIE qieuser apixaban (ELIQUIS) 5 mg Tab tablet Take 1 tablet (5 mg total) by mouth 2 (two) times daily. 01/26 ELIQUIS QIE qieuser ALLOPURINOL 100 MG TABS Take 1 tablet (100 mg total) by mouth daily. 01/26 allopurinol 05711012532 QIE qieuser ENTRESTO 97-103 MG TABS Take 1 tablet by mouth twice a day 12/22 sacubitril-valsa rtan 35441211410 Bisi Laurel LEVOTHYROXINE SODIUM 150 MCG TABS Take 1 tablet by mouth every morning 12/22 levothyroxine 06103550316 Bisi Laurel PRAVASTATIN SODIUM 40 MG TABS Take 1 tablet by mouth every night 12/22 pravastatin 57886737922 Bisi Laurel apixaban (ELIQUIS) 5 mg Tab tablet Take 1 tablet by mouth twice a day 12/22 ELIQUIS Bisi Laurel GABAPENTIN 100 MG CAPS Take 1 capsule by mouth twice a day 12/22 gabapentin 03989348660 Bisi Laurel OXYCODONE HCL 15 MG TABS Take 0.5 tablet by mouth every six hours as needed 12/22 oxycodone 87218154918 Bisi Laurel TAMSULOSIN HCL 0.4 MG CAPS Take 1 capsule by mouth once a day 12/22 tamsulosin 07922608136 Bisi Laurel ALLOPURINOL 100 MG TABS Take 1 tablet by mouth once a day 12/22 allopurinol 77759663236 Bisi Laurel BISOPROLOL FUMARATE 10 MG TABS Take 1 tablet by mouth once a day 12/22 bisoprolol fumarate 66140520283 Bisi Laurel TRELEGY ELLIPTA 100-62.5-25 MCG/ACT AEPB Inhale by mouth 12/22 fluticasone-umec lidin-vilanter 05061794200 Bisi Laurel LIDOCAINE PAIN RELIEF MAX ST 4 % [facility] Place 1 patch to skin once a day 12/22 lidocaine 03002044455 Bisi Walkerill Cubicin RF 500 mg intravenous solution 500[facility]rs[facility] dapt[facility] 49480547122 [facility] vancomycin in 0.9 % sodium chl solution Vancomycin 1.5G [id number] 07/31 vancomycin in 0.9 % sodium chl solution [facility] TAMSULOSIN HCL 0.4 MG CAPS Take 1 capsule (0.4 mg total) by mouth daily. 03/22 tamsulosin 87778682892 QIE qieuser ENTRESTO 97-103 MG TABS Take 1 tablet by mouth 2 (two) times daily. 12/22 sacubitril-valsa rtan 56844022634 QIE qieuser PRAVASTATIN SODIUM 40 MG TABS Take 1 tablet (40 mg total) by mouth nightly. 03/17 pravastatin 20368899287 QIE qieuser OXYCODONE HCL 15 MG TABS Take 0.5 tablets (7.5 mg total) by mouth every 6 (six) hours as needed Look-alike/Barbara nd-alike medication. Max Daily Amount: 30 mg 12/22 oxycodone 66535527475 QIE qieuser LIDOCAINE PAIN RELIEF MAX ST 4 % [facility] Place 1 patch onto the skin daily. 12/22 lidocaine 96369038220 QIE qieuser LEVOTHYROXINE SODIUM 150 MCG TABS Take 1 tablet (150 mcg total) by mouth Every morning on an empty stomach. 12/22 levothyroxine 39017112991 QIE qieuser GABAPENTIN 100 MG CAPS Take 1 capsule (100 mg total) by mouth 2 (two) times daily. Max Daily Amount: 200 mg 12/14 gabapentin 61001725558 QIE qieuser TRELEGY ELLIPTA 100-62.5-25 MCG/ACT AEPB Inhale by mouth via inhaler. 12/22 fluticasone-umec lidin-vilanter 88935690972 QIE qieuser BISOPROLOL FUMARATE 10 MG TABS Take 1 tablet (10 mg total) by mouth daily. 12/22 bisoprolol fumarate 83601000025 QIE qieuser apixaban (ELIQUIS) 5 mg Tab tablet Take 1 tablet (5 mg total) by mouth 2 (two) times daily. 12/22 ELIQUIS QIE qieuser ALLOPURINOL 100 MG TABS Take 1 tablet (100 mg total) by mouth daily. 12/22 allopurinol 44138335581 QIE qieuser BISOPROLOL FUMARATE 10 MG TABS Take 1 tablet by mouth once a day 12/15 bisoprolol fumarate 08147318200 Abena Allen TRELEGY ELLIPTA 100-62.5-25 MCG/ACT AEPB Inhale by mouth 12/15 fluticasone-umec lidin-vilanter 33264103819 Abena Allen ENTRESTO 97-103 MG TABS Take 1 tablet by mouth twice a day 12/15 sacubitril-valsa rtan 26072045354 Abena Allen ALLOPURINOL 100 MG TABS Take 1 tablet by mouth once a day 12/15 allopurinol 59066174069 Abena Allen LEVOTHYROXINE SODIUM 100 MCG TABS Take 1 tablet by mouth every morning 12/15 levothyroxine 98393971201 Abena Allen PRAVASTATIN SODIUM 40 MG TABS Take 1 tablet by mouth once a day 12/15 pravastatin 22345833638 Abena Allen apixaban (ELIQUIS) 5 mg Tab tablet Take 1 tablet by mouth twice a day 12/15 ELIQUIS Abena Allen piperacillin-tazo bactam (ZOSYN) MBP 4.5 g in 100 mL NS Inject 4.5 intravenously every eight hours 12/15 ZOSYN Abena Allen TAMSULOSIN HCL 0.4 MG CAPS Take 1 capsule by mouth once a day 12/15 tamsulosin 92309366397 Abena Allen DAPTOMYCIN 500 MG SOLR Inject 50 ml intravenously once a day 12/15 daptomycin 60323553489 Abena Allen TAMSULOSIN HCL 0.4 MG CAPS Take 1 capsule (0.4 mg total) by mouth daily. 03/22 tamsulosin 31946162778 QIE qieuser ENTRESTO 97-103 MG TABS Take 1 tablet by mouth 2 (two) times daily. 12/15 sacubitril-valsa rtan 98872125805 QIE qieuser PRAVASTATIN SODIUM 40 MG TABS Take 1 tablet (40 mg total) by mouth daily. 03/17 pravastatin 38174272610 QIE qieuser piperacillin-tazo bactam (ZOSYN) MBP 4.5 g in 100 mL NS Inject 4.5 g intravenously every 8 (eight) hours for 24 days Through 12/20/23. 12/18 ZOSYN QIE qieuser OXYCODONE HCL 10 MG TABS Take 1 tablet (10 mg total) by mouth every 4 (four) hours as needed for up to 10 days Look-alike/Barbara nd-alike medication. Max Daily Amount: 60 mg 12/04 oxycodone 52182795155 QIE qieuser LEVOTHYROXINE SODIUM 100 MCG TABS Take 1 tablet (100 mcg total) by mouth Every morning on an empty stomach. 12/15 levothyroxine 60957995616 QIE qieuser TRELEGY ELLIPTA 100-62.5-25 MCG/ACT AEPB Inhale by mouth via inhaler. 12/15 fluticasone-umec lidin-vilanter 70453143425 QIE qieuser DAPTOMYCIN 500 MG SOLR Inject 50 mLs (500 mg total) intravenously daily for 24 days Through 12/20/23. 12/18 daptomycin 36585919729 QIE qieuser BISOPROLOL FUMARATE 10 MG TABS Take 1 tablet (10 mg total) by mouth daily. 12/15 bisoprolol fumarate 29815836301 QIE qieuser apixaban (ELIQUIS) 5 mg Tab tablet Take 1 tablet (5 mg total) by mouth 2 (two) times daily. 12/15 ELIQUIS QIE qieuser ALLOPURINOL 100 MG TABS Take 1 tablet (100 mg total) by mouth daily. 12/15 allopurinol 81540729127 QIE qieuser ACETAMINOPHEN 500 MG TABS Take 2 tablets (1,000 mg total) by mouth every 6 (six) hours as needed for Pain for up to 10 days. 12/04 acetaminophen 58323984094 QIE qieuser Cubicin RF 500 mg intravenous solution 500mg IV Q24hrs/ [facility] 12/21 daptomycin 01394546052 Edel Nguyen RN ZOSYN 4-0.5 GM/100ML SOLN 4.5gm IV Q8hrs/ [facility] 07/31 piperacillin-marlo obactam-dextrs 44528952045 Edel Nguyen RN Medications Administered No information [...] Entry Date CPT-Cooral Continue oral antibiotics 05/04/10 CPT-45251 CMP [id number] CBC with Differential 2023 CPT-78207 C- reactive protein CPT-larissa New Oral Antibiotic CPT-93054 CMP [id number] CBC with Differential 2023 CPT-82351 C- reactive protein CPT-PICREM PICC Removal CPT-DC Discontinue IV antibiotics 2 CPT-larissa New Oral Antibiotic CPT-98918 CMP [id number] CBC with Differential 2023 CPT-35629 C- reactive protein Vital Signs Date Name [...]
--- OUTSIDE RECORDS SUMMARY | 2025-04-25 13:38 | XMS_ITS | Clinical Summary ---
Author Organization [facility] Address [address] [place] [id number] Care Team Providers Care Pulp Cooker Name Role Phone Maida Weinberg ASSOCIATE PROFESSOR OF LITERATURE Primary Care Provider [phone] Social History Tobacco Use Types Packs/Day Years Used Date Smoking Tobacco: Never Assessed Sex and Gender Information Value Date Recorded Sex Assigned at Male 04/19/2025 11:36 AM EDT Legal Sex Male 12:38 PM EDT Gender Identity Not on file Sexual Orientation Not on file Plan of Treatment Upcoming Encounters Date Type Department Care Team (Late st Contact Info) Description 07/27/2025 2:00 PM EST Office Visit [facility] PULMONARY CRITICAL CARE & SLEEP MEDICINE [address] [facility] [address] [address] Joseph Seth MD [address] [facility] [address] [address] Health Maintenance Due Date Last Done Comments TDAP/TD VACCINES (1 - Tdap) 1959 RSV Vaccine - Adults (1 - 1- dose 75+ series) 2014 ANNUAL WELLNESS VISIT 10/06/2016 INFLUENZA VACCINE 02/10/2025 05/26/2008, 05/05/2007 COVID-19 Vaccine (2024-2 6 season) 2025 04/14/2022, 10/30/2021, 05/08/2021, Additional history exists Pneumococcal Vaccine 50+ Completed 10/07/2022 ZOSTER VACCINE Completed 12/15/2022, 10/07/2022 Procedures Procedure Name Priority Date/Time Associated Diagnosis Comments SCANNED - LABS 03/15/2025 SCANNED - LABS 03/15/2025 SCANNED - LABS 03/03/2025 SCANNED - LABS 02/17/2025 SCANNED - LABS 02/17/2025 from Last 3 Months Results * LABS SCANNED (03/15/2025) Only the most recent of5 resultswithin the time period is included. [facility] LAB BLOOD ORDERABLES Final Re sult from Last 3 Months Insurance MEDICARE A & B HUMANA MEDICARE ADVANTAGE [facility] HMO Care Teams Pulp Cooker Relationship Specialty Start Date End Date Maida Weinberg APRN [address] [place] [address] [place] [address] PCP - General Nurse Practitioner 02/08/25
--- OUTSIDE RECORDS SUMMARY | 2025-04-25 13:38 | XMS_ITS | Clinical Summary ---
Author Organization [facility] ([place], [place], [place], [place]) Address [address] [place] [address] Care Team Providers Care Pit Recorder Name Role Phone Johnnie Lincoln MD Primary Care Provider [phone] Allergies No known active allergies Medications apixaban [...] total) by mouth daily. 0 12/18/2023 Active Active Problems Problem Noted Date Diagnosed [...] off services in your home? No 12/08/2023 Food Insecurity Answer Date Recorded Within [...] Do you speak a language other than [place] at [facility]? No 12/08/2023 Do you want help with school or training? For example, starting or completing job training or getting a high school diploma, GED or equivalent. No 12/08/2023 Physical Activity Answer Date Recorded Number of minutes of exercise per week 0 12/08/2023 Substance Use Answer Date Recorded How [...] series) 2014 Medicare Initial AWV [id number] 07/14/2023 Falls Risk Screening 07/13/2024 Tobacco Cessation Counseling and Screening (12+) 11/02/2024 11/03/2023 COVID-19 VACCINE (6 - 2024-2 6 season) 2025 04/14/2022, 10/30/2021, 05/08/2021, Additional history exists Influenza Vaccine (#1) 2025 Pneumococcal 50+ years Completed 10/07/2022 Shingles Vaccine (Zoster) Completed 2022, 12/14/2022, 10/07/2022, Additional history exists Medical Devices Implanted Type Area [employer] Attendant Device Identifier Shelf Expiration Date Model / Serial / Lot Cardiovascular Cardiovascular G1 48 / / Description: NO MRI Abando barry Lead per Cardiology. Currently has BS G148 from 2017, with lead # [id number], RA [id number], RV [id number] Insurance [facility] MEDICARE HMO Advance Directives For more information, please contact: [phone] * DNR - Limited Additional Intervention (Latest Code Status on File) Date Activated Date Inactivated Comments 12/17/2023 2:04 PM 12/18/2023 11:56 AM If no pulse: NO intervention If has pulse: NO Intubation. May use BiPAP/CPAP Call MANAGER PROJECT * Full Code Date Activated Date Inactivated Comments 12/08/2023 10:49 PM 12/17/2023 2:04 PM -Attempt Res uscitation if person has no pulse and is not breathing. -If no pulse or not breathing attempt CPR/CODE. -Call Rapid Response if patient is in distress. * Full Code Date Activated Date Inactivated Comments 11/02/2023 10:58 PM 11/26/2023 11:21 AM Care Teams Pit Recorder Relationship Specialty Start Date End Date Johnnie Lincoln MD [address] [place] [address] [place] [id number] PCP - General General Internal Medicine 11/03/23
--- OUTSIDE RECORDS SUMMARY | 2025-04-25 13:38 | XMS_ITS | Encounter Summary ---
Author Organization [facility] Address [address] [place] [address] Care Team Providers Care Play Writer Name Role Phone Johnnie Lincoln MD Primary Care Provider [phone] Dany Reyes MD Unavailable [phone] Encounter Details Date Type Department Care Team (Late st Contact Info) Description 12/31/2020 Orders Only External Location [address] [place] [address] Provider, External Social History Tobacco Use Types [...] on filedocumented in this encounter Care Teams Play Writer Relationship Specialty Start Date End Date Johnnie Lincoln MD [address] [facility] [address] [place] [address] PCP - General 11/23/20 Dany Reyes MD [address] [place] [address] Referring Physician 02/07/21 documented as of this encounter
--- OUTSIDE RECORDS SUMMARY | 2025-04-25 13:38 | XMS_ITS | Encounter Summary ---
Author Organization [facility] Address [address] [place] [address] Care Team Providers Care Terrazzo Layer Helper Name Role Phone Johnnie Lincoln MD Primary Care Provider [phone] Dany Reyes MD Unavailable [phone] Encounter Details Date Type Department Care Team (Late st Contact Info) Description 10/27/2023 Orders Only External Location [address] [place] [address] Provider, External Social History Tobacco Use Types [...] documented as of this encounter Care Teams Terrazzo Layer Helper Relationship Specialty Start Date End Date Johnnie Lincoln MD [facility] [address] [place] [address] PCP - General 11/23/20 Dany Reyes MD [facility] [place] [address] [place], [place] [id number] Referring Physician 02/07/21 documented as of this encounter
--- OUTSIDE RECORDS SUMMARY | 2025-04-25 13:38 | XMS_ITS | Clinical Summary ---
Author Organization [facility] Address [address] [place] [address] Phone Care Team Providers Care Layout Operator Name Role Phone Johnnie Lincoln MD Primary Care Provider [phone] Allergies No known active allergies Medications LEVOthyroxine [...] 75+ series) 2014 COVID-19 Vaccine ( season) 2025 04/14/2022, 10/30/2021, 05/08/2021, Additional history exists Influenza Vaccine (#1) 2025 05/26/2008, 2006 Pneumococcal Vaccine 50+ Completed 10/07/2022 Zoster Completed 12/15/2022, 10/07/2022 Hepatitis B Vaccine Aged Out No longe r eligible based on patient's age to complete this topic Meningococcal B Vaccine Aged Out No l onger eligible based on patient's age to complete this topic Insurance [place]ICAID [place] HU[place]NA MEDICARE HMO [place] [employer] MEDICARE HMO MR Advance Directives For more information, please contact: [phone] * Full Code (Latest Code Status on File) Date Activated Date Inactivated Comments 01/16/2023 2:10 AM 01/19/2023 3:59 PM Care Teams Layout Operator Relationship Specialty Start Date End Date Johnnie Lincoln MD [address] [place] [address] [place] [address] PCP - General Internal Medicine 01/16/23
--- OUTSIDE RECORDS SUMMARY | 2025-04-25 13:38 | XMS_ITS | Clinical Summary ---
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 01/16 Ascending aortic aneurysm 01/15/2021 COPD (chronic obstructive pulmonary disease) 12/2020 Hypertension 01/15/2021 Hyperlipidemia 01/15/2021 Hypothyroid 01/15/2021 GERD (gastroesophageal reflux disease) Chronic systolic heart failure 01/15/2021 Cardiomyopathy 01/15/2021 Paroxysmal atrial fibrillation 01/15/2021 Resolved Problems Problem Noted Date Diagnosed Date Resolved Date Pneumonia of left lower lobe due to infectious organism 01/16/2023 07/16/2023 Overweight (BMI 25.0-29.9) 02/07/2021 0 04/02/2025 Anticoagulated on Coumadin 01/15/2021 0 07/16/2023 Immunizations [...] or (1 - 1-dose 75+ series) 2014 [id number] Vaccine ( season) 2025 04/14/2022, 10/30/2021, 05/08/2021, Additional history exists [facility]-Influenza Vaccine (#1) 2025 05/26/2008, [facility]-Pneumococcal Vaccine: 50+ Years Completed 10/07/2022 [facility]-Zoster [...] to complete this topic Insurance Care Teams Timber Framer Helper Relationship Specialty Start Date End Date Johnnie Lincoln MD Count includes the [facility] [address] [place] [address] PCP - General 11/23/20 Dany Reyes MD Count includes the [facility] [address] [address] Referring Physician 02/07/21
--- OUTSIDE RECORDS SUMMARY | 2025-04-25 13:38 | XMS_ITS | Encounter Summary ---
Author Organization Healthcare Address [address] [place] [address] Care Team Providers Care Attending Physician Name Role Phone Johnnie Lincoln MD Primary Care Provider [phone] Dany Reyes MD Unavailable [phone] Encounter Details Date Type Department Care Team (Late st Contact Info) Description 06/18/2023 Orders Only External Location [address] [place] [address] [place] [address] [place] [address] [place] [address] Social History Tobacco Use Types Packs/Day Years [...] on filedocumented in this encounter Care Teams Attending Physician Relationship Specialty Start Date End Date Johnnie Lincoln MD [id number] [place], [place] [id number] PCP - General 11/23/20 Dany Reyes MD [address] [facility] [address] [place] [address] Referring Physician 02/07/21 documented as of this encounter
--- OUTSIDE RECORDS SUMMARY | 2025-04-25 13:39 | XMS_ITS | Referral Summary ---
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 Currently has BS G148 from 2017, with lead # [id number], RA [id number], RV [id number] [place] [id number] Advance Directives For more information, please contact: [phone] * DNR - Limited Additional Intervention (Latest Code Status on File) Date Activated Date Inactivated Comments 12/17/2023 2:04 PM 12/18/2023 11:56 AM If no pulse: NO intervention If has pulse: NO Intubation. May use BiPAP/CPAP Call TAIL EDGER * Full Code Date Activated Date Inactivated Comments 12/08/2023 10:49 PM 12/17/2023 2:04 PM -Attempt Res uscitation if person has no pulse and is not breathing. -If no pulse or not breathing attempt CPR/CODE. -Call Rapid Response if patient is in distress. * Full Code Date Activated Date Inactivated Comments 11/02/2023 10:58 PM 11/26/2023 11:21 AM Care Teams Loop Machine Operator Relationship Specialty Start Date End Date Johnnie Lincoln MD [address] [place] [address] [place] [address] PCP - General General Internal Medicine 11/03/23
--- NOTE | 2025-04-25 13:45 | CT_ITS ---
FINAL REPORT TECHNIQUE: Thin section axial images were obtained from the thoracic inlet through the upper abdomen after intravenous contrast injection. Reconstruction images were obtained from the axial data. Exam was performed using dose reduction technique. CLINICAL HISTORY: f/u Lung Cancer COMPARISON: 12/21/2024 FINDINGS: There is no mediastinal, hilar, or axillary lymphadenopathy. There is no pleural effusion. Stable small pericardial effusion is noted. The ascending aortic aneurysm measuring 5.1 cm also measures 5.1 cm on the prior exam on remeasurement. There is a stable 6 mm left upper lobe nodule on series 2, image 20. A left lower lobe 7 mm nodule on image 73 was 7 mm. Ground-glass and airspace disease in the medial right lower lobe has increased since the prior exam. The known right lower lobe nodule is partially obscured. This opacity may be treatment related if the patient has had radiation. No additional nodules are identified. There are changes of emphysema. Limited evaluation of the upper abdomen demonstrates no acute findings. There are stable bilateral hypodense renal lesions. No acute osseous abnormality. IMPRESSION: Interval increasing ground-glass and airspace disease surrounding a nodule in the medial right lower lobe favored to be treatment related. Please correlate with any history of radiation. Stable left lung nodules. Stable ascending aortic aneurysm. Reviewed, Interpreted and Dictated by Viktoria Grossman MD Transcribed by Mariah Sanabria Authenticated and [facility]
[2025-04-25 13:53] LABS: Albumin Level 4.4 g/dl (3.5-5.0); Chloride 103 mmol/L (98-107)
[2025-04-25 13:54] LABS: Potassium 4.2 mmoL/L (3.5-5.1); Sodium 137 mmol/L (136-145)
[2025-04-25 13:56] LABS: Alanine Aminotransferase 47 U/L (12-78); Anion Gap 13.2 mEq/L (5-15); Aspartate Amino Transferase 50 U/L (17-59); Blood Urea Nitrogen 16 mg/dl (9-20); Carbon Dioxide 25 mmol/L (22.0-30.0); Creatinine,Serum 1.00 mg/dl (0.66-1.25); Estimated Glomerular Filt Rate 71 ml/min (>60); GFR (African American) 86 ML/MIN (>60)
[2025-04-25 13:57] LABS: Albumin/Globulin Ratio 1.4 (1.1-1.8); Alkaline Phosphatase 195 U/L (38-126); Bilirubin,Total 0.9 mg/dl (0.2-1.3); Calcium 9.3 mg/dl (8.4-10.2); Globulin 3.2 g/dL (1.3-3.2); Glucose 132 mg/dl (74-100); Total Protein,Serum 7.6 g/dl (6.3-8.2)
[2025-04-25] MEDS: SODIUM CHLORIDE 0.9% 10ML SYR (RAD ONLY) 10 ML IV (14:18)
[2025-04-25] MEDS: IOPAMIDOL-370 (76%);100ML BOTTLE 75 ML IV (14:19)
== END 2025-04-25 23:59 | disposition home or self-care (01) ==
LOC: RAD 13:36
PROVIDERS: Visit Provider Internal Medicine Medical Oncology
DX: C34.31 Malignant neoplasm of lower lobe, right bronchus or lung (principal); J98.4 Other disorders of lung; R91.8 Other nonspecific abnormal finding of lung field; I71.21 Aneurysm of the ascending aorta, without rupture
CPT/HCPCS: 36415; 71260; 80053; Q9967